=== PATIENT | female | born 1955 | race Caucasian/White ===

== ENCOUNTER 2016-12-14 13:34 | Observation (INO) | payer SELFPAY ==
[2016-12-14 13:54] VITALS: BMI 33.4
[2016-12-14] MEDS ORDERED: ASPIRIN PO ONE (13:55)
[2016-12-14] MEDS ORDERED: NITROSTAT SL PRN (13:57)
[2016-12-14] MEDS ORDERED: ASPIRIN 81 MG CHEWTAB ONE (14:05)
[2016-12-14 14:06] LABS: BASOPHILS # (AUTO) 0.1 X10^3/uL (0.0-0.1); BASOPHILS % (AUTO) 0.6 % (0.2-1.0); EOSINOPHILS # (AUTO) 0.2 x10^3/uL (0.0-0.2); EOSINOPHILS % (AUTO) 2.3 % (0.9-2.9); HEMATOCRIT 30.7 % (36.0-47.0); HEMOGLOBIN 10.6 g/dL (12.0-16.0); LYMPHOCYTES # (AUTO) 2.3 X10^3/uL (1.3-2.9); LYMPHOCYTES % (AUTO) 23.4 % (21.0-51.0); MEAN CORPUSCULAR HGB CONC 34.5 g/dL (33.0-35.0); MEAN CORPUSCULAR VOLUME 89.7 fL (80.0-100.0); MEAN PLATELET VOLUME 7.7 fL (7.4-11.0); MONOCYTES # (AUTO) 0.5 x10^3/uL (0.3-0.8); MONOCYTES % (AUTO) 5.4 % (0.0-13.0); NEUTROPHILS # (AUTO) 6.7 x10^3/uL (2.2-4.8); NEUTROPHILS % (AUTO) 68.3 % (42.0-75.0); PLATELET COUNT 370 X10^3/uL (150.0-450.0); RED BLOOD COUNT 3.42 X10^6/uL (3.5-5.4); RED CELL DISTRIBUTION WIDTH 14.3 % (11.6-16.5); WHITE BLOOD COUNT 9.7 X10^3/uL (3.6-10.0)
--- NOTE | 2016-12-14 14:11 | DR.GENAD ---
HPI - HPI Comment HPI Comment: SUDDEN ONSET OF PRECORDIAL CHEST PAIN THAT STARTED AT HOME ONE HOUR AGO. SHE WENT TO HER NEURO APPOINTMENT AND GOT WORSE IN THAT OFFICE. PATIENT TOOK 2 S/L NTG. NO RELIEF. HIST CAD AND PAIN SIMILAR TO HER HEART PAIN. SOB ASSOCIATED WITH LIKEWISE WEAKNESS AND FATIGUE. - Complaint/Symptoms Chief Complaint Doctors Comments: CHEST PAIN. - Nurses notes reviewed Nurses Notes Review: Yes - Source History Provided: Patient, Significant Other - Mode of Arrival Mode of Arrival: Wheelchair - Timing Came on: Suddenly - Duration Duration: Constant Duration: Hours - Severity Severity: Moderate PMH - PMH Past Medical History: CHF, CVA, Diabetes, Hypertension, Hypothyroidism, [place] Past Surgical History: Yes Surgical History: Appendectomy, CABG/Valve Surgery, Hysterectomy, Other - Family History Family Medical History: Diabetes Mellitus, Cancer, Heart Failure - Social History Do you use any recreational Drugs:: No ROS - Review of Systems Constitutional: Weakness, Fatigue. negative: Chills, Fever Eyes: No Symptoms Reported. negative: Eye Pain, Discharge ENTM: No Symptoms Reported. negative: Ear Pain, Nose Discharge, Nose Congestion , Throat Pain Respiratoy: Short of Breath. negative: Productive Cough, Non-Productive Cough, Wheezing Cardiovascular: Chest Pain, Edema Gastrointestinal/Abdominal: No Symptoms Reported. negative: Abdominal Pain, Diarrhea, Nausea, Vomiting Genitourinary: No Symptoms Reported. negative: Dysuria, Frequency, Hematuria Neurological: Pre-existing Deficit, Weakness, Other (SHORT TERM MEMOTY DEFICIT.) Musculoskeletal: No Symptoms Reported Integumentary: No Symptoms Reported Hematologic/Lymphatic: No Symptoms Reported Endocrine: No Symptoms Reported All Other Systems: Reviewed and Negative PE - Vital Signs Vitals: Temperature 98.9 F Pulse Rate [Left Brachial] 59 Pulse Rate 61 Respiratory Rate 16 Blood Pressure [Right Arm] 126/61 Blood Pressure [Left Arm] 128/72 Blood Pressure [Standing] 130/61 Blood Pressure [Sitting] 123/68 Blood Pressure [Lying] 142/79 Blood Pressure 161/74 O2 Sat by Pulse Oximetry 99 - General Limitations: No Limitations General Appearance: Alert - Head Head Exam: Normal Inspection - Eyes Eye exam: Normal Appearance - ENT ENT Exam: Normal External Ear Exam TM/Canal Exam: Bilateral Normal Nose Exam: Normal Nose Exam Mouth Exam: Normal Inspection Throat Exam: Normal Inspection - Neck Neck Exam: Trachea Midline - Chest Chest Inspection: Symmetric Chest Wall Rise - Respiratory Respiratory Exam: Normal Lung Sounds Bilat Respiratory Exam: Bilateral Clear to Auscultation - Cardiovascular Cardiovascular Exam: Regular Rate, Normal Rhythm, Normal Heart Sounds - Abdominal Exam Abdominal Exam: Normal Bowel Sounds, Soft. negative: Tenderness - Extremities Extremities Exam: Normal Inspection. negative: Edema - Back Back Exam: Normal Inspection - Neurologic Neurological Exam: Alert, Oriented X3 - Psychiatric Psychiatric Exam: Normal Affect, Normal Mood - Skin Skin Exam: Normal Color MDM - Additional Information Additional Information Obtained From: Family - Differential Diagnosis Differential Diagnosis: CHEST PAIN Course - Treatment Treatment: SEE ORDERS. - Education/Counseling Education/Counseling: Patient, Family, Education Educated On: Treatment, Diagnosis ROR - Labs Reviewed Laboratory Results Reviewed?: Yes Result Diagrams: 12/15/16 03:05 12/15/16 03:05 Laboratory: WBC 9.7 X10^3/uL (3.6-10.0) 12/14/16 13:45 RBC 3.42 X10^6/uL (3.5-5.4) L 12/14/16 13:45 Hgb 10.6 g/dL (12.0-16.0) L 12/14/16 13:45 Hct 30.7 % (36.0-47.0) L 12/14/16 13:45 MCV 89.7 fL (80.0-100.0) 12/14/16 13:45 MCH 31.0 pg (27.0-34.0) 12/14/16 13:45 MCHC 34.5 g/dL (33.0-35.0) 12/14/16 13:45 RDW 14.3 % (11.6-16.5) 12/14/16 13:45 Plt Count 370 X10^3/uL (150.0-450.0) 12/14/16 13:45 MPV 7.7 fL (7.4-11.0) 12/14/16 13:45 Neut % 68.3 % (42.0-75.0) 12/14/16 13:45 Lymph % 23.4 % (21.0-51.0) 12/14/16 13:45 [place] % 5.4 % (0.0-13.0) 12/14/16 13:45 Eos % 2.3 % (0.9-2.9) 12/14/16 13:45 Baso % 0.6 % (0.2-1.0) 12/14/16 13:45 Neut # 6.7 x10^3/uL (2.2-4.8) H 12/14/16 13:45 Lymph # 2.3 X10^3/uL (1.3-2.9) 12/14/16 13:45 [place] # 0.5 x10^3/uL (0.3-0.8) 12/14/16 13:45 Eos # 0.2 x10^3/uL (0.0-0.2) 12/14/16 13:45 Baso # 0.1 X10^3/uL (0.0-0.1) 12/14/16 13:45 Absolute Nucleated RBC 0.1 /100WBC 12/14/16 13:45 INR Target Range - 12/14/16 13:45 INR 1.26 (0.8-1.3) 12/14/16 13:45 PTT 28.6 SECONDS (22.9-36.5) 12/14/16 13:45 PTT Comment - 12/14/16 13:45 D-Dimer 410 ng/mL (0-400) H* 12/14/16 13:45 Sodium 139 mmol/L (136-145) 12/14/16 13:45 Corrected Sodium 140 mmol/L (136-145) 12/14/16 13:45 Potassium 4.0 mmol/L (3.5-5.1) 12/14/16 13:45 Chloride 102 mmol/L (98-107) 12/14/16 13:45 Carbon Dioxide 28.6 mmol/L (21-32) 12/14/16 13:45 BUN 17 mg/dL (7-18) 12/14/16 13:45 Creatinine 0.90 mg/dL (0.55-1.02) 12/14/16 13:45 Est GFR (MDRD) Af Amer > 60 (>60) 12/14/16 13:45 Est GFR (MDRD) Non-Af > 60 (>60) 12/14/16 13:45 Glucose 154 mg/dL (65-99) H 12/14/16 13:45 Calcium 9.9 mg/dL (8.5-10.1) 12/14/16 13:45 Corrected Calcium 10.6 mg/dL (8.5-10.1) H 12/14/16 13:45 Magnesium 1.5 mg/dL (1.7-2.9) L 12/14/16 13:45 Total Bilirubin 0.30 mg/dL (0.2-1.0) 12/14/16 13:45 AST 12 Units/L (15-37) L 12/14/16 13:45 ALT 17 Units/L (12-78) 12/14/16 13:45 Alkaline Phosphatase 137 Units/L (46-116) H 12/14/16 13:45 Creatine Kinase 72 Units/L (26-192) 12/14/16 13:45 CK-MB (CK-2) < 1.0 ng/mL (0-4.0) 12/14/16 13:45 CK/CKMB % Calc 1.4 % (<4) 12/14/16 13:45 Troponin I < 0.02 ng/mL (0-1.5) 12/14/16 13:45 Total Protein 7.2 g/dL (6.4-8.2) 12/14/16 13:45 Albumin 3.1 g/dL (3.4-5.0) L 12/14/16 13:45 Globulin 4.1 g/dL (2.5-4.5) 12/14/16 13:45 Albumin/Globulin Ratio 0.8 Ratio (1.1-2.1) L 12/14/16 13:45 Specimen Type Clean catch urine 12/14/16 14:05 Urine Color Pale yellow (YELLOW) 12/14/16 14:05 Urine Appearance Clear (CLEAR) 12/14/16 14:05 Urine pH 5.0 (5.0 - 8.0) 12/14/16 14:05 Ur Specific [place] 1.010 (1.000-1.030) 12/14/16 14:05 Urine Protein Negative (NEGATIVE) 12/14/16 14:05 Urine Glucose (UA) Negative (NEGATIVE) 12/14/16 14:05 Urine Ketones Negative (NEGATIVE) 12/14/16 14:05 Urine Occult Blood Negative (NEGATIVE) 12/14/16 14:05 Urine Nitrite Negative (NEGATIVE) 12/14/16 14:05 Urine Bilirubin Negative (NEGATIVE) 12/14/16 14:05 Urine Urobilinogen Normal (NORMAL) 12/14/16 14:05 Ur Leukocyte Esterase Negative (NEGATIVE) 12/14/16 14:05 Urine RBC None seen /HPF (NEGATIVE) 12/14/16 14:05 Urine WBC 2-3 /HPF (NEGATIVE) 12/14/16 14:05 Ur Squamous Epith Cells Few /HPF (NEGATIVE) 12/14/16 14:05 Urine Bacteria 1+ /HPF (NEGATIVE) 12/14/16 14:05 Ur Culture Indicated? No/not indicated 12/14/16 14:05 - XRAY XRAY Findings: REPORT DISCUSS WITH PATIENT AND HER FAMILY. - EKG Rhythm: NSR (EKG NOTED) - Diagnosis Discharge Problem: Chest pain Qualifiers: Chest pain type: precordial pain Qualified Code(s): R07.2 - Precordial pain - Discharge Plan Disposition: ADMITTED INPATIENT Condition: Stable - Follow ups/Referrals - Instructions
[2016-12-14 14:17] LABS: BILIRUBIN,URINE NEGATIVE (NEGATIVE); BLOOD/HEMOGLOBIN,URINE NEGATIVE (NEGATIVE); GLUCOSE, URINE NEGATIVE (NEGATIVE); KETONES,URINE NEGATIVE (NEGATIVE); LEUKOCYTE ESTERASE ,URINE NEGATIVE (NEGATIVE); NITRITES,URINE NEGATIVE (NEGATIVE); PROTEIN,URINE NEGATIVE (NEGATIVE); UROBILINOGEN,URINE NORMAL (NORMAL)
[2016-12-14 14:20] LABS: BLOOD UREA NITROGEN 17 mg/dL (7-18); CALCIUM 9.9 mg/dL (8.5-10.1); CARBON DIOXIDE 28.6 mmol/L (21-32); CHLORIDE 102 mmol/L (98-107); COR NA(FOR HYPERGLY) 140 mmol/L (136-145); SODIUM 139 mmol/L (136-145); TROPONIN I < 0.02 ng/mL (0-1.5); eGFR BLACK RACES > 60 (>60); eGFR NON BLACK RACES > 60 (>60)
[2016-12-14 14:24] LABS: APPEARANCE,URINE CLEAR (CLEAR); BACTERIA,URINE 1+ /HPF (NEGATIVE); COLOR,URINE PALE YELLOW (YELLOW); RBC,URINE NONE SEEN /HPF (NEGATIVE); SQUAMOUS EPITHELIAL CELL,UR FEW /HPF (NEGATIVE)
[2016-12-14 14:24] LABS: ALANINE AMINOTRANSFERASE 17 Units/L (12-78); ALBUMIN 3.1 g/dL (3.4-5.0); ALKALINE PHOSPHATASE 137 Units/L (46-116); ASPARTATE AMINO TRANSFERASE 12 Units/L (15-37); CKMB % 1.4 % (<4); COR CA(FOR HYPOALB) 10.6 mg/dL (8.5-10.1); CREATINE KINASE 72 Units/L (26-192); CREATINE KINASE MB < 1.0 ng/mL (0-4.0); MAGNESIUM 1.5 mg/dL (1.7-2.9); TOTAL PROTEIN 7.2 g/dL (6.4-8.2)
[2016-12-14] MEDS ORDERED: MORPHINE SULFATE INJ 4 MG IVP ONE ×2 (14:33→15:30)
[2016-12-14] MEDS ORDERED: MORPHINE SULFATE INJ 4 MG ONE ×2 (14:35→15:31)
[2016-12-14] MEDS ORDERED: MORPHINE SULFATE INJ 2 MG INJ IVP PRN (15:40)
[2016-12-14] MEDS ORDERED: ATIVAN TAB 1 MG PO PRN (15:40)
--- NOTE | 2016-12-14 16:11 | RAD ---
Examination: Portable AP chest History: Chest pain SOB Comparison reference: 03/27/2016 Findings: Continued normal heart size with sternal wires. There is mild pulmonary vascular congestion , at least some of which may be related to nonstandard technical factors. There is no evidence for co nsolidation or pleural fluid. Impression: Pulmonary vascular congestion; stable appearance of postsurgical findings. No evidence fo r pneumonia or pneumothorax. Reported By:
[2016-12-14] MEDS: PROTONIX INJ 40 MG VIAL IVP SCH (16:40)
[2016-12-14] MEDS ORDERED: COUMADIN TAB 5 MG PO SCH (21:00)
[2016-12-14] MEDS ORDERED: LIPITOR TAB 40 MG PO SCH (21:00)
[2016-12-14] MEDS: BUSPAR PO SCH (21:04)
[2016-12-14] MEDS: COREG TAB 6.25 MG PO SCH (21:05)
[2016-12-14] MEDS: KEPPRA TAB 500 MG PO SCH (21:06)
[2016-12-14] MEDS: GLUCOPHAGE XR PO SCH (21:07)
[2016-12-14 21:39] LABS: CKMB % 1.6 % (<4); CREATINE KINASE 63 Units/L (26-192); CREATINE KINASE MB < 1.0 ng/mL (0-4.0); TROPONIN I < 0.02 ng/mL (0-1.5)
[2016-12-15 03:23] LABS: BASOPHILS # (AUTO) 0.1 X10^3/uL (0.0-0.1); BASOPHILS % (AUTO) 1.1 % (0.2-1.0); EOSINOPHILS # (AUTO) 0.2 x10^3/uL (0.0-0.2); EOSINOPHILS % (AUTO) 2.3 % (0.9-2.9); HEMATOCRIT 30.1 % (36.0-47.0); HEMOGLOBIN 10.1 g/dL (12.0-16.0); LYMPHOCYTES # (AUTO) 2.6 X10^3/uL (1.3-2.9); LYMPHOCYTES % (AUTO) 24.7 % (21.0-51.0); MEAN CORPUSCULAR HEMOGLOBIN 30.8 pg (27.0-34.0); MEAN CORPUSCULAR HGB CONC 33.4 g/dL (33.0-35.0); MEAN CORPUSCULAR VOLUME 92.1 fL (80.0-100.0); MEAN PLATELET VOLUME 7.8 fL (7.4-11.0); MONOCYTES # (AUTO) 0.7 x10^3/uL (0.3-0.8); MONOCYTES % (AUTO) 6.4 % (0.0-13.0); NEUTROPHILS # (AUTO) 6.8 x10^3/uL (2.2-4.8); NEUTROPHILS % (AUTO) 65.5 % (42.0-75.0); PLATELET COUNT 327 X10^3/uL (150.0-450.0); RED BLOOD COUNT 3.27 X10^6/uL (3.5-5.4); RED CELL DISTRIBUTION WIDTH 14.5 % (11.6-16.5); WHITE BLOOD COUNT 10.3 X10^3/uL (3.6-10.0)
[2016-12-15 03:38] LABS: CKMB % 1.6 % (<4); CREATINE KINASE 63 Units/L (26-192); CREATINE KINASE MB < 1.0 ng/mL (0-4.0); TROPONIN I < 0.02 ng/mL (0-1.5)
[2016-12-15 03:49] LABS: ALANINE AMINOTRANSFERASE 17 Units/L (12-78); ALBUMIN 2.8 g/dL (3.4-5.0); ALKALINE PHOSPHATASE 122 Units/L (46-116); ASPARTATE AMINO TRANSFERASE 13 Units/L (15-37); BLOOD UREA NITROGEN 24 mg/dL (7-18); CALCIUM 9.6 mg/dL (8.5-10.1); CARBON DIOXIDE 28.1 mmol/L (21-32); CHLORIDE 105 mmol/L (98-107); CHOL/HDL RATIO 2.6 (0.0-5.0); CHOLESTEROL 170 mg/dL (0-200); COR CA(FOR HYPOALB) 10.6 mg/dL (8.5-10.1); COR NA(FOR HYPERGLY) 142 mmol/L (136-145); CREATININE 1.18 mg/dL (0.55-1.02); HDL CHOLESTEROL 66 mg/dL (40-60); MAGNESIUM 1.6 mg/dL (1.7-2.9); SODIUM 140 mmol/L (136-145); TOTAL PROTEIN 6.7 g/dL (6.4-8.2); TRIGLYCERIDES 221 mg/dL (0-150); eGFR BLACK RACES > 60 (>60); eGFR NON BLACK RACES 50 (>60)
[2016-12-15] MEDS: BUSPAR PO SCH (05:27)
[2016-12-15] MEDS: GLUCOPHAGE XR PO SCH (08:54)
[2016-12-15] MEDS: COREG TAB 6.25 MG PO SCH (08:54)
[2016-12-15] MEDS: KEPPRA TAB 500 MG PO SCH (08:55)
[2016-12-15] MEDS: PROTONIX INJ 40 MG VIAL IVP SCH (08:56)
[2016-12-15] MEDS ORDERED: ACTOS PO SCH (09:00)
[2016-12-15] MEDS ORDERED: K-DUR TAB 20 MEQ PO SCH (09:00)
[2016-12-15] MEDS ORDERED: GLUCOTROL XL PO SCH (09:00)
[2016-12-15] MEDS ORDERED: ZOLOFT PO SCH (09:00)
[2016-12-15] MEDS ORDERED: LASIX PO SCH (09:00)
[2016-12-15] MEDS ORDERED: SYNTHROID 25 mcg TAB PO SCH (09:00)
[2016-12-15] MEDS ORDERED: PEPCID TAB 20 MG PO SCH (09:00)
[2016-12-15] MEDS ORDERED: ASPIRIN EC 81 MG PO SCH (09:00)
[2016-12-15] MEDS ORDERED: COZAAR PO SCH (09:00)
[2016-12-15 14:08] VITALS: BP 158/76
== END 2016-12-15 12:10 | disposition home or self-care (01) ==
LOC: ER 13:36 → MED/SURG 15:32
PROVIDERS: ADMIT Obstetrics & Gynecology Obstetrics; ATTEND Obstetrics & Gynecology Obstetrics
DX: R07.2 Precordial pain (principal); I25.10 Atherosclerotic heart disease of native coronary artery without angina pectoris; R06.02 Shortness of breath; E11.65 Type 2 diabetes mellitus with hyperglycemia; I10 Essential (primary) hypertension; E03.8 Other specified hypothyroidism; R94.31 Abnormal electrocardiogram [ECG] [EKG]; Z79.01 Long term (current) use of anticoagulants
CPT/HCPCS: 36415; 71010; 80053; 80061; 81001; 82550; 82553; 83735; 84484; 85025; 85378; 85610; 85730; 93005; 93010; 94760; 96365; 96374; 96375; 99284; A4216; A4222; C9113; G0378; J2270

== ENCOUNTER 2017-05-06 10:05 | Observation (INO) | payer BC ==
--- NOTE | 2017-05-06 10:24 | DR.EXTPAIN ---
HPI - Time seen Time seen: 10:25 - PCP Primary Care Physician: HARLEY - HPI Comment HPI Comment: PATIENT IS WEAK ABD HAVE GENERALIZE PAIN. - Complaint/Symptoms Chief Complaint Doctor Comments: PATIENT FOUND ON FLOOR IN HER ROOM. SHE FELL LAST NIGHT. NECK AND BACK PAIN. Chief Complaint:: EMS RESPONDED TO BACK PAIN, SEIZURE ACTIVITY, AND FELL LAST NIGHT. EMS DID NOT SEE SEIZURE ACTIVITY AND FAMILY HAD ASSISTED PT UP BEFORE ARRIVAL. PT ON BACK BOARD. PT COMPLAINTS OF LEFT SHOULDER PAIN WHEN PLACING BLOOD PRESSUE CUFF ON. - Nurses notes reviewed Nurses Notes Review: Yes - Source History Provided: Patient, EMS - Mode of arrival Mode of Arrival: Stretcher - Timing Onset of Chief Complaint: 05/05/17 - Context History of: Arthritis - Associated signs and symptoms Associated Signs and Symptoms: Abrasion, Weakness, Pain, Swelling, Bruising, Headache, Nausea, Shortness of Breath PMH - PMH Past Medical History: Yes Past Medical History: CHF, CVA, Diabetes, Hypertension, Hypothyroidism, [place] Past Surgical History: Yes Surgical History: Appendectomy, CABG/Valve Surgery, Hysterectomy, Other - Family History History of Family Medical Conditions: Yes Family Medical History: Diabetes Mellitus, Cancer, Heart Failure - Social History Does any household member use tobacco: No Alcohol Use: None Do you use any recreational Drugs:: No Lives With: Spouse Lives Where: Home - infectious screening In the last 2 months have you had wt loss of >10#?: NO Have you had fever, night sweats or hemotysis?: No Have you traveled outside the country in the last 6 months?: No Isolation: Standard ROS - Review of Systems Constitutional: Weakness, Fatigue. negative: Chills, Fever Eyes: negative: Eye Pain, Discharge ENTM: negative: Ear Pain, Nose Discharge, Nose Congestion, Throat Pain Respiratoy: Short of Breath. negative: Productive Cough, Non-Productive Cough, Wheezing, Hemoptysis Cardiovascular: Edema. negative: Chest Pain Gastrointestinal/Abdominal: negative: Abdominal Pain, Constipation, Diarrhea, Nausea, Vomiting Genitourinary: No Symptoms Reported. negative: Dysuria, Frequency, Hematuria Neurological: Weakness, Dizziness, Problems Walking Musculoskeletal: No Symptoms Reported, Back Pain, Joint Pain, Joint Swelling, Muscle Pain, Neck Pain, Neck, Back Integumentary: Change in Color Hematologic/Lymphatic: No Symptoms Reported Endocrine: No Symptoms Reported All Other Systems: Reviewed and Negative PE - Vital Signs Vitals: Temperature 97.3 F Pulse Rate [Left Brachial] 85 Pulse Rate 78 Respiratory Rate 20 Blood Pressure [Right Arm] 112/60 Blood Pressure [Left Arm] 188/84 Blood Pressure [Standing] 130/61 Blood Pressure [Sitting] 123/68 Blood Pressure [Lying] 142/79 Blood Pressure 183/94 O2 Sat by Pulse Oximetry 95 - General Limitations: No Limitations General Appearance: Alert - Head Head Exam: Normal Inspection - Eyes Eye exam: Normal Appearance - ENT ENT Exam: Normal External Ear Exam - Neck Neck Exam: Trachea Midline - Chest Chest Inspection: Symmetric Chest Wall Rise - Respiratory Respiratory Exam: Normal Lung Sounds Bilat Respiratory Exam: Bilateral Clear to Auscultation - Cardiovascular Cardiovascular Exam: Regular Rate, Normal Rhythm, Normal Heart Sounds - Abdominal Exam Abdominal Exam: Normal Bowel Sounds. negative: Tenderness - Extremities Extremities Exam: Full ROM, Edema - Back Back Exam: Tenderness, Muscle Spasm, Paraspinal Tenderness, Vertebral Tenderness - Neurological Neurological Exam: Alert, Oriented X3 - Psychiatric Psychiatric Exam: Anxious - Skin Skin Exam: Erythema MDM - Differential Diagnosis Differential Diagnosis: Contusion, Fracture, Hematoma, Neurovascular Injury, Sprain Course - Treatment Treatment: SEE ORDERS. IV PAIN MED IN ED. PATIENT STILL IN PAIN. - Consultation Consultation Comments: DISCUSS PATIENT WITH DR. SOUZA. HE WILL ADMIT PATIENT. - Education/Counseling Education/Counseling: Patient, Education Educated On: Treatment, Diagnosis, Needs for Follow Up ROR - Labs Reviewed Laboratory Results Reviewed?: Yes Result Diagrams: 05/07/17 05:00 05/07/17 05:00 Laboratory: WBC 12.8 X10^3/uL (3.6-10.0) H 05/06/17 10:50 RBC 4.30 X10^6/uL (3.5-5.4) 05/06/17 10:50 Hgb 12.7 g/dL (12.0-16.0) 05/06/17 10:50 Hct 38.3 % (36.0-47.0) 05/06/17 10:50 MCV 89.2 fL (80.0-100.0) 05/06/17 10:50 MCH 29.6 pg (27.0-34.0) 05/06/17 10:50 MCHC 33.1 g/dL (33.0-35.0) 05/06/17 10:50 RDW 14.6 % (11.6-16.5) 05/06/17 10:50 Plt Count 370 X10^3/uL (150.0-450.0) 05/06/17 10:50 MPV 7.8 fL (7.4-11.0) 05/06/17 10:50 Neut % (Auto) 88.6 % (42.0-75.0) H 05/06/17 10:50 Lymph % (Auto) 8.6 % (21.0-51.0) L 05/06/17 10:50 [place] % (Auto) 1.8 % (0.0-13.0) 05/06/17 10:50 Eos % (Auto) 0.6 % (0.9-2.9) L 05/06/17 10:50 Baso % (Auto) 0.4 % (0.2-1.0) 05/06/17 10:50 Neut # (Auto) 11.3 x10^3/uL (2.2-4.8) H 05/06/17 10:50 Lymph # (Auto) 1.1 X10^3/uL (1.3-2.9) L 05/06/17 10:50 [place] # (Auto) 0.2 x10^3/uL (0.3-0.8) L 05/06/17 10:50 Eos # (Auto) 0.1 x10^3/uL (0.0-0.2) 05/06/17 10:50 Baso # (Auto) 0.1 X10^3/uL (0.0-0.1) 05/06/17 10:50 Absolute Nucleated RBC 0.1 /100WBC 05/06/17 10:50 INR Target Range - 05/06/17 13:24 INR 1.28 (0.8-1.3) 05/06/17 13:24 APTT 24.1 SECONDS (22.9-36.5) 05/06/17 13:24 PTT Comment - 05/06/17 13:24 Sodium 135 mmol/L (136-145) L 05/06/17 10:50 Corrected Sodium 142 mmol/L (136-145) 05/06/17 10:50 Potassium 5.2 mmol/L (3.5-5.1) H 05/06/17 10:50 Chloride 99 mmol/L (98-107) 05/06/17 10:50 Carbon Dioxide 24.0 mmol/L (21-32) 05/06/17 10:50 BUN 17 mg/dL (7-18) 05/06/17 10:50 Creatinine 1.14 mg/dL (0.55-1.02) H 05/06/17 10:50 Est GFR (MDRD) Af Amer > 60 (>60) 05/06/17 10:50 Est GFR (MDRD) Non-Af 52 (>60) L 05/06/17 10:50 Glucose 409 mg/dL (65-99) H 05/06/17 10:50 POC Glucose (mg/dL) 421 mg/dL (65-99) H* 05/06/17 10:25 Calcium 10.4 mg/dL (8.5-10.1) H 05/06/17 10:50 Corrected Calcium TNP 05/06/17 10:50 Total Bilirubin 0.30 mg/dL (0.2-1.0) 05/06/17 10:50 AST 13 Units/L (15-37) L 05/06/17 10:50 ALT 21 Units/L (12-78) 05/06/17 10:50 Alkaline Phosphatase 163 Units/L (46-116) H 05/06/17 10:50 Creatine Kinase 162 Units/L (26-192) 05/06/17 17:58 CK-MB (CK-2) 1.2 ng/mL (0-4.0) 05/06/17 17:58 CK/CKMB % Calc 0.7 % (<4) 05/06/17 17:58 Troponin I 0.03 ng/mL (0-1.5) 05/06/17 17:58 Total Protein 7.4 g/dL (6.4-8.2) 05/06/17 10:50 Albumin 3.6 g/dL (3.4-5.0) 05/06/17 10:50 Globulin 3.8 g/dL (2.5-4.5) 05/06/17 10:50 Albumin/Globulin Ratio 0.9 Ratio (1.1-2.1) L 05/06/17 10:50 Specimen Type Random urine 05/06/17 12:27 Urine Color Yellow (YELLOW) 05/06/17 12:27 Urine Appearance Slightly hazy (CLEAR) 05/06/17 12:27 Urine pH 6.0 (5.0 - 8.0) 05/06/17 12:27 Ur Specific [place] 1.010 (1.000-1.030) 05/06/17 12:27 Urine Protein 3+ (NEGATIVE) 05/06/17 12:27 Urine Glucose (UA) 4+ (NEGATIVE) 05/06/17 12:27 Urine Ketones Negative (NEGATIVE) 05/06/17 12:27 Urine Occult Blood 3+ (NEGATIVE) 05/06/17 12:27 Urine Nitrite Negative (NEGATIVE) 05/06/17 12:27 Urine Bilirubin Negative (NEGATIVE) 05/06/17 12:27 Urine Urobilinogen Normal (NORMAL) 05/06/17 12:27 Ur Leukocyte Esterase Negative (NEGATIVE) 05/06/17 12:27 Urine RBC 0-2 /HPF (NONE SEEN) 05/06/17 12:27 Urine WBC 3-5 /HPF (NONE SEEN) 05/06/17 12:27 Ur Squamous Epith Cells Moderate /HPF (NEGATIVE) 05/06/17 12:27 Urine Bacteria Trace /HPF (NEGATIVE) 05/06/17 12:27 Ur Culture Indicated? No/not indicated 05/06/17 12:27 [place]et[place], Semi-Quant Negative (NEGATIVE) 05/06/17 10:50 - XRAY XRAY Findings: REPORT DISCUSS WITH PATIENT. - EKG Rhythm: NSR (EKG NOTED) - Diagnosis Discharge Problem: Intractable pain, Generalized weakness, Multiple contusions Back pain Qualifiers: Back pain location: low back pain Chronicity: acute Back pain laterality: bilateral Sciatica presence: unspecified whether sciatica present Qualified Code (s): M54.5 - Low back pain Strain of thoracic region Qualifiers: Encounter type: initial encounter Qualified Code(s): S29.019A - Strain of muscle and tendon of unspecified wall of thorax, initial encounter - Discharge Plan Disposition: 01 HOME, SELF-CARE Condition: Stable - Follow ups/Referrals - Instructions
[2017-05-06] MEDS ORDERED: ZOFRAN INJ 4 MG VIAL IVP ONE (10:36)
[2017-05-06] MEDS ORDERED: MORPHINE SULFATE INJ 2 MG INJ IVP ONE (10:41)
[2017-05-06] MEDS ORDERED: ZOFRAN INJ 4 MG VIAL ONE (10:44)
[2017-05-06] MEDS ORDERED: MORPHINE SULFATE INJ 2 MG INJ ONE (10:44)
[2017-05-06] MEDS ORDERED: NS 1000 ML 1,000 ML ONE (10:53)
[2017-05-06] MEDS ORDERED: NS 1000 ML 1,000 ML IV ONE (10:57)
[2017-05-06 10:59] LABS: BASOPHILS # (AUTO) 0.1 X10^3/uL (0.0-0.1); BASOPHILS % (AUTO) 0.4 % (0.2-1.0); EOSINOPHILS # (AUTO) 0.1 x10^3/uL (0.0-0.2); EOSINOPHILS % (AUTO) 0.6 % (0.9-2.9); HEMATOCRIT 38.3 % (36.0-47.0); HEMOGLOBIN 12.7 g/dL (12.0-16.0); LYMPHOCYTES # (AUTO) 1.1 X10^3/uL (1.3-2.9); LYMPHOCYTES % (AUTO) 8.6 % (21.0-51.0); MEAN CORPUSCULAR HEMOGLOBIN 29.6 pg (27.0-34.0); MEAN CORPUSCULAR HGB CONC 33.1 g/dL (33.0-35.0); MEAN CORPUSCULAR VOLUME 89.2 fL (80.0-100.0); MEAN PLATELET VOLUME 7.8 fL (7.4-11.0); MONOCYTES # (AUTO) 0.2 x10^3/uL (0.3-0.8); MONOCYTES % (AUTO) 1.8 % (0.0-13.0); NEUTROPHILS # (AUTO) 11.3 x10^3/uL (2.2-4.8); NEUTROPHILS % (AUTO) 88.6 % (42.0-75.0); PLATELET COUNT 370 X10^3/uL (150.0-450.0); RED CELL DISTRIBUTION WIDTH 14.6 % (11.6-16.5); WHITE BLOOD COUNT 12.8 X10^3/uL (3.6-10.0)
[2017-05-06 11:13] LABS: BLOOD UREA NITROGEN 17 mg/dL (7-18); CALCIUM 10.4 mg/dL (8.5-10.1); CHLORIDE 99 mmol/L (98-107); COR NA(FOR HYPERGLY) 142 mmol/L (136-145); CREATININE 1.14 mg/dL (0.55-1.02); SODIUM 135 mmol/L (136-145); TROPONIN I 0.02 ng/mL (0-1.5); eGFR BLACK RACES > 60 (>60); eGFR NON BLACK RACES 52 (>60)
[2017-05-06 11:16] LABS: SERUM ACETONE NEGATIVE (NEGATIVE)
[2017-05-06 11:28] LABS: ALANINE AMINOTRANSFERASE 21 Units/L (12-78); ALBUMIN 3.6 g/dL (3.4-5.0); ALKALINE PHOSPHATASE 163 Units/L (46-116); ASPARTATE AMINO TRANSFERASE 13 Units/L (15-37); CKMB % 1.1 % (<4); CREATINE KINASE 114 Units/L (26-192); CREATINE KINASE MB 1.3 ng/mL (0-4.0); TOTAL PROTEIN 7.4 g/dL (6.4-8.2)
--- NOTE | 2017-05-06 12:02 | CT ---
History: Back pain and seizure activity and fall last night Study: CT thoracic spine without contrast. Sagittal and coronal reformations were provided. Findings: There is normal alignment without fracture or compression. There are moderate degenerative osteophytes in the lower half of the thoracic spine without significant disc space narrowing. The spi nous processes are intact. The partially visualized posterior ribs are intact. The partially visualiz ed lungs are grossly clear. Impression: Degenerative disc disease, no acute disease. Reported By:
--- NOTE | 2017-05-06 12:02 | CT ---
CT HEAD WITHOUT CONTRAST CLINICAL HISTORY: 62-year-old female with seizure like activity status post fall last night. COMPARISON: MR brain 03/30/2016, CT head 03/26/2016. TECHNIQUE: Multiple, non-contrasted axial CT images were obtained from the skull base to the cranial vertex. Coronal and sagittal reformats were performed. FINDINGS: There are no abnormal intra- or extra-axial fluid collections, midline shift, or mass effec t. Cao-white differentiation is normal. Partially empty sella. Global cortical involutional changes are present that are advanced for the patient's stated age. The ventricular system is mildly enlarged but commensurate with the degree of sulcal prominence. Chronic ischemic insult with associated encephalomalacia of the bilateral occipital lobes and posteri or aspect of the left temporal lobe. Periventricular and supraventricular white matter hypodensity is present that is nonspecific in appea dayne, but most likely to represent microvascular ischemic changes. Atherosclerotic vascular calcific ation is present within the carotid siphons and distal vertebral arteries. The paranasal sinuses, mastoid air cells, and tympanic spaces are clear. IMPRESSION: 1. No definite evidence of an acute intracranial process. If clinical concern persists for acute stro ke, consider MRI/MRA brain. 2. 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 3. Moderate microvascular white matter ischemic changes, with associated volume loss. Reported By:
--- NOTE | 2017-05-06 12:04 | CT ---
History: Back pain and seizure activity and fall last night Study: CT lumbar spine without contrast. Sagittal and coronal reformations were provided. Comparison: None Findings: There is normal alignment without fracture or compression. There is moderate L4-5 disc spac e narrowing. The spinous processes are intact as well as the transverse processes. There are moderate degenerative changes of the facet joints diffusely. There are most severe on the left and especially at L4-5 and L5-S1. The sacroiliac joints are unremarkable. There are prominent degenerative osteophy milind laterally at L1-2 and L2-3 Impression: Facet joint osteoarthritis and degenerative disc disease as described. Reported By:
--- NOTE | 2017-05-06 12:10 | CT ---
History: Neck pain and seizure activity and fall last night Study: CT cervical spine without contrast. Sagittal and coronal reformations were provided. Comparison: None Findings: There is normal alignment without fracture demonstrated. There is moderate to severe C5-6 a nd C6-7 disc space narrowing with osteophyte formation and uncovertebral joint spurring primarily at C5-6. There is severe mid cervical facet joint osteophytes on the left primarily at C3-4 and C4-5. Th e spinous processes are intact. The soft tissues appear unremarkable. Impression: Moderate to severe lower cervical degenerative disc disease and severe left C3-4 and C4-5 facet joint osteoarthritis Reported By:
--- NOTE | 2017-05-06 12:18 | RAD ---
HISTORY: 62-year-old female status post fall. Study: Frontal view of the chest. Comparison: Chest radiographs 12/14/2016 Findings: Surgical devices are stable The trachea is midline. The cardiac silhouette is stably enlarged with low lung volumes and chronic prominence of the interstitium/perihilar lung markings. The lungs are clear without focal consolidat ion, effusion or pneumothorax. Soft tissues are unremarkable. Osseous structures are unremarkable. IMPRESSION: 1. No acute cardiopulmonary disease. Reported By:
[2017-05-06 12:39] LABS: BILIRUBIN,URINE NEGATIVE (NEGATIVE); BLOOD/HEMOGLOBIN,URINE 3+ (NEGATIVE); GLUCOSE, URINE 4+ (NEGATIVE); KETONES,URINE NEGATIVE (NEGATIVE); LEUKOCYTE ESTERASE ,URINE NEGATIVE (NEGATIVE); NITRITES,URINE NEGATIVE (NEGATIVE); PROTEIN,URINE 3+ (NEGATIVE); UROBILINOGEN,URINE NORMAL (NORMAL)
[2017-05-06 12:47] LABS: COLOR,URINE YELLOW (YELLOW)
[2017-05-06 12:56] LABS: APPEARANCE,URINE SLIGHTLY HAZY (CLEAR)
[2017-05-06 12:58] LABS: BACTERIA,URINE TRACE /HPF (NEGATIVE); RBC,URINE 0-2 /HPF (NONE SEEN); SQUAMOUS EPITHELIAL CELL,UR MODERATE /HPF (NEGATIVE)
[2017-05-06] MEDS: NS 1000 ML 1,000 ML IV SCH (17:17)
[2017-05-06] MEDS ORDERED: MORPHINE SULFATE INJ 2 MG INJ IVP PRN (17:28)
[2017-05-06] MEDS ORDERED: ZOFRAN INJ 4 MG VIAL IVP PRN (17:28)
[2017-05-06 17:51] VITALS: BMI 37.4
[2017-05-06 18:41] LABS: CKMB % 0.7 % (<4); CREATINE KINASE MB 1.2 ng/mL (0-4.0); TROPONIN I 0.03 ng/mL (0-1.5)
[2017-05-06] MEDS: GLUCOPHAGE XR PO SCH (20:46)
[2017-05-06] MEDS: COREG TAB 6.25 MG PO SCH (20:48)
[2017-05-06] MEDS ORDERED: KEPPRA TAB 500 MG PO SCH (21:00)
[2017-05-06] MEDS ORDERED: DILANTIN CAP 100 MG EXT REL PO SCH (21:00)
[2017-05-06] MEDS ORDERED: ZOLOFT PO SCH (21:00)
[2017-05-06] MEDS ORDERED: LIPITOR TAB 40 MG PO SCH (21:00)
[2017-05-06] MEDS ORDERED: ACTOS PO SCH (21:00)
[2017-05-06] MEDS ORDERED: COUMADIN TAB 5 MG PO SCH (21:00)
[2017-05-06] MEDS ORDERED: LEVETIRACETAM 750 MG PO SCH (21:00)
[2017-05-07 01:52] LABS: CKMB % 0.6 % (<4); CREATINE KINASE MB 1.2 ng/mL (0-4.0); TROPONIN I 0.04 ng/mL (0-1.5)
[2017-05-07 05:28] LABS: BASOPHILS # (AUTO) 0.1 X10^3/uL (0.0-0.1); BASOPHILS % (AUTO) 1.3 % (0.2-1.0); EOSINOPHILS # (AUTO) 0.1 x10^3/uL (0.0-0.2); EOSINOPHILS % (AUTO) 0.8 % (0.9-2.9); HEMATOCRIT 33.1 % (36.0-47.0); HEMOGLOBIN 11.1 g/dL (12.0-16.0); LYMPHOCYTES # (AUTO) 2.4 X10^3/uL (1.3-2.9); LYMPHOCYTES % (AUTO) 20.9 % (21.0-51.0); MEAN CORPUSCULAR HEMOGLOBIN 29.7 pg (27.0-34.0); MEAN CORPUSCULAR HGB CONC 33.6 g/dL (33.0-35.0); MEAN CORPUSCULAR VOLUME 88.4 fL (80.0-100.0); MEAN PLATELET VOLUME 7.9 fL (7.4-11.0); MONOCYTES # (AUTO) 0.6 x10^3/uL (0.3-0.8); MONOCYTES % (AUTO) 5.3 % (0.0-13.0); NEUTROPHILS # (AUTO) 8.2 x10^3/uL (2.2-4.8); NEUTROPHILS % (AUTO) 71.7 % (42.0-75.0); PLATELET COUNT 364 X10^3/uL (150.0-450.0); RED BLOOD COUNT 3.75 X10^6/uL (3.5-5.4); RED CELL DISTRIBUTION WIDTH 14.2 % (11.6-16.5); WHITE BLOOD COUNT 11.5 X10^3/uL (3.6-10.0)
[2017-05-07 05:40] LABS: ALANINE AMINOTRANSFERASE 18 Units/L (12-78); ALBUMIN 2.8 g/dL (3.4-5.0); ALKALINE PHOSPHATASE 121 Units/L (46-116); ASPARTATE AMINO TRANSFERASE 11 Units/L (15-37); BLOOD UREA NITROGEN 17 mg/dL (7-18); CALCIUM 9.2 mg/dL (8.5-10.1); CARBON DIOXIDE 26.3 mmol/L (21-32); CHLORIDE 104 mmol/L (98-107); COR CA(FOR HYPOALB) 10.2 mg/dL (8.5-10.1); COR NA(FOR HYPERGLY) 140 mmol/L (136-145); CREATININE 0.97 mg/dL (0.55-1.02); SODIUM 137 mmol/L (136-145); TOTAL PROTEIN 6.6 g/dL (6.4-8.2); eGFR BLACK RACES > 60 (>60); eGFR NON BLACK RACES > 60 (>60)
[2017-05-07] MEDS: NS 1000 ML 1,000 ML IV SCH (05:52)
[2017-05-07] MEDS ORDERED: PATIENT'S HOME MEDICATION (Buspirone Hcl [Buspirone Hcl] 1 TAB) PO SCH (09:00)
[2017-05-07] MEDS ORDERED: K-DUR TAB 20 MEQ PO SCH (09:00)
[2017-05-07] MEDS ORDERED: ASPIRIN 81 MG CHEWTAB PO SCH (09:00)
[2017-05-07] MEDS ORDERED: PEPCID TAB 20 MG PO SCH (09:00)
[2017-05-07] MEDS ORDERED: PATIENT'S HOME MEDICATION (Aspirin [Aspirin] 1 TAB) PO SCH (09:00)
[2017-05-07] MEDS ORDERED: PATIENT'S HOME MEDICATION (Famotidine [Famotidine] 40 MG) PO SCH (09:00)
[2017-05-07] MEDS ORDERED: SYNTHROID 25 mcg TAB PO SCH (09:00)
[2017-05-07] MEDS ORDERED: LASIX PO SCH (09:00)
[2017-05-07] MEDS ORDERED: BUSPAR PO SCH (09:00)
[2017-05-07] MEDS ORDERED: COZAAR PO SCH (09:00)
[2017-05-07] MEDS: GLUCOPHAGE XR PO SCH (09:12)
[2017-05-07] MEDS: COREG TAB 6.25 MG PO SCH (09:13)
[2017-05-07 18:21] VITALS: BP 145/72
== END 2017-05-07 13:30 | disposition home or self-care (01) ==
LOC: ER 10:07 → MED/SURG 15:55
PROVIDERS: ADMIT Internal Medicine; ATTEND Obstetrics & Gynecology Obstetrics
DX: R40.4 Transient alteration of awareness (principal); M54.5 Low back pain; G40.89 Other seizures; R53.1 Weakness; S29.019A Strain of muscle and tendon of unspecified wall of thorax, initial encounter; W18.39XA Other fall on same level, initial encounter; T07.XXXA Unspecified multiple injuries, initial encounter; D72.828 Other elevated white blood cell count; M25.512 Pain in left shoulder; Z79.1 Long term (current) use of non-steroidal anti-inflammatories (NSAID); M54.2 Cervicalgia; R94.31 Abnormal electrocardiogram [ECG] [EKG]; E11.65 Type 2 diabetes mellitus with hyperglycemia; I25.10 Atherosclerotic heart disease of native coronary artery without angina pectoris; H54.8 Legal blindness, as defined in USA
CPT/HCPCS: 36415; 70450; 71045; 72125; 72128; 72131; 80053; 80185; 81001; 82009; 82550; 82553; 83036; 84484; 85025; 85610; 85730; 93005; 93010; 94760; 96365; 96374; 96375; 99239; 99284; G0378; J2270; J2405

== ENCOUNTER 2017-10-18 15:50 | Observation (INO) ==
--- NOTE | 2017-10-18 16:07 | DR.CP ---
HPI Time Seen Time Seen by Provider: 10/18/17 16:00 PCP Primary Care Physician: bassem HPI Comment HPI Comment: PATIENT SAID PAIN DID NOT RESPOND TO NITROGLYCERIN S/L TIMES 2. TOOK ASA BEFORE COMING. PATIENT ALSO TAKES COUMADIN. Complaint Chief Complaint Doctor Comments: INTERMITTENT PRECORDIAL CHEST PAIN TIMES ONE HOUR. Chief Complaint:: "chest pain started about 30min ago" Reviewed Nurses Notes Review: Yes Source History Provided: Patient Mode of Arrival Mode of Arrival: Ambulatory Timing Onset of Chief Complaint: 10/18/17 Came on: Suddenly Pain: Present Now Duration Duration: Intermittent Duration: Hours Location Location of Chest Pain: Left and Chest Chest Pain Radiation Location: None Context Onset: At rest Cardiac Risk Factors: Family History and HTN PE Risk Factors: None History of: Similar pain in the past, [place], Angina and Aspirin in last 24 hours Prehospital Care: [facility] and ASA Quality Quality: Pressure like and Heavy Severity Severity: Moderate Modifying Factors Worsens: Nothing Impoves: Nothing Associated Signs and Symptoms Associated Signs and Symptoms: None and Shortness of Breath PMH PMH Past Medical History: Yes Past Medical History: CHF, CVA, Diabetes, Hypertension, Hypothyroidism and [place] Past Surgical History: Yes Surgical History: Appendectomy, CABG/Valve Surgery, Hysterectomy and Other Family History History of Family Medical Conditions: Yes Family Medical History: Diabetes Mellitus, Cancer and Heart Failure Social History Does patient currently use any type of tobacco product: No Have you used tobacco products in the last 12 months: No Type of Tobacco Use: None Does any household member use tobacco: No Alcohol Use: None Do you use any recreational Drugs:: No Lives With: Spouse Lives Where: Home infectious screening In the last 2 months have you had wt loss of >10#?: NO Have you had fever, night sweats or hemotysis?: No Have you traveled outside the country in the last 6 months?: No Isolation: Standard ROS Review of Systems Constitutional: Weakness and Fatigue Eyes: No Symptoms Reported ENTM: No Symptoms Reported Respiratoy: Short of Breath Cardiovascular: Chest Pain Gastrointestinal/Abdominal: No Symptoms Reported Genitourinary: No Symptoms Reported Neurological: Pre-existing Deficit and Weakness Musculoskeletal: No Symptoms Reported Integumentary: No Symptoms Reported Hematologic/Lymphatic: No Symptoms Reported Endocrine: No Symptoms Reported Psychiatric: No Symptoms Reported All Other Systems: Reviewed and Negative PE Vitals Vitals: Temperature 98 F Pulse Rate [Right Brachial] 78 Pulse Rate 88 Respiratory Rate 18 Blood Pressure [Right Arm] 192/100 Blood Pressure [Left Arm] 145/72 Blood Pressure [Standing] 130/61 Blood Pressure [Sitting] 123/68 Blood Pressure [Lying] 142/79 Blood Pressure 177/87 O2 Sat by Pulse Oximetry 98 General Limitations: No Limitations General Appearance: Alert and In No Apparent Distress Head Head Exam: Normal Inspection and Atraumatic Eyes Eye exam: Normal Appearance, PERRL and EOMI; negative Scleral Icterus and Conjunctival Injection ENT ENT Exam: Normal Exam, Normal Oropharynx, Normal External Ear Exam and TM's Normal Bilaterally Chest Chest Inspection: Normal Inspection and Symmetric Chest Wall Rise Respiratory Respiratory Exam: Normal Lung Sounds Bilat Respiratory Exam: Bilateral: Rhonchi and Lower: Rhonchi Cardiovascular Cardiovascular Exam: Regular Rate and Normal Rhythm Pulse: Normal, Radial and Femoral Edema: Normal Abdominal Exam Abdominal Exam: Normal Inspection, Normal Bowel Sounds and Soft; negative Tenderness Extremities Extremities Exam: Normal Inspection Back Back Exam: Normal Inspection Neurologic Neurological Exam: Alert, Oriented X3 and Motor Sensory Deficit Psychiatric Psychiatric Exam: Normal Affect Skin Skin Exam: Intact MDM Additional Information Additional Information Obtained From: Family Differential Diagnosis Differential Diagnosis: Angina, Myocardial Infarction, Pericarditis, Pneumonia, Pneumothorax and Pulmonary Embolus COURSE Treatment Treatment: SEE ORDERS. Consultation Consultation Comments: DISCUSS PATIENT WITH DR. SOUZA. HE WILL ADMIT PATIENT. Education/Counseling Education/Counseling: Patient, Family and Education Educated On: Diagnosis ROR Labs Reviewed Laboratory Results Reviewed?: Yes Result Diagrams: 10/18/17 16:10 10/18/17 16:10 Laboratory: WBC 9.7 X10^3/uL (3.6-10.0) 10/18/17 16:10 RBC 3.86 X10^6/uL (3.5-5.4) 10/18/17 16:10 Hgb 12.6 g/dL (12.0-16.0) 10/18/17 16:10 Hct 36.5 % (36.0-47.0) 10/18/17 16:10 MCV 94.8 fL (80.0-100.0) 10/18/17 16:10 MCH 32.8 pg (27.0-34.0) 10/18/17 16:10 MCHC 34.6 g/dL (33.0-35.0) 10/18/17 16:10 RDW 13.9 % (11.6-16.5) 10/18/17 16:10 Plt Count 387 X10^3/uL (150.0-450.0) 10/18/17 16:10 MPV 8.3 fL (7.4-11.0) 10/18/17 16:10 Neut % (Auto) 67.1 % (42.0-75.0) 10/18/17 16:10 Lymph % (Auto) 25.5 % (21.0-51.0) 10/18/17 16:10 Kendall % (Auto) 4.5 % (0.0-13.0) 10/18/17 16:10 Eos % (Auto) 1.8 % (0.9-2.9) 10/18/17 16:10 Baso % (Auto) 1.1 % (0.2-1.0) H 10/18/17 16:10 Neut # (Auto) 6.5 x10^3/uL (2.2-4.8) H 10/18/17 16:10 Lymph # (Auto) 2.5 X10^3/uL (1.3-2.9) 10/18/17 16:10 Kendall # (Auto) 0.4 x10^3/uL (0.3-0.8) 10/18/17 16:10 Eos # (Auto) 0.2 x10^3/uL (0.0-0.2) 10/18/17 16:10 Baso # (Auto) 0.1 X10^3/uL (0.0-0.1) 10/18/17 16:10 Absolute Nucleated RBC 0.0 /100WBC 10/18/17 16:10 INR Target Range - 10/18/17 16:10 INR 1.17 (0.8-1.3) 10/18/17 16:10 APTT 25.6 SECONDS (22.9-36.5) 10/18/17 16:10 PTT Comment - 10/18/17 16:10 D-Dimer 654 ng/mL (0-400) H* 10/18/17 16:10 Sodium 131 mmol/L (136-145) L 10/18/17 16:10 Corrected Sodium 140 mmol/L (136-145) 10/18/17 16:10 Potassium 4.4 mmol/L (3.5-5.1) 10/18/17 16:10 Chloride 96 mmol/L (98-107) L 10/18/17 16:10 Carbon Dioxide 25.9 mmol/L (21-32) 10/18/17 16:10 BUN 19 mg/dL (7-18) H 10/18/17 16:10 Creatinine 1.27 mg/dL (0.55-1.02) H 10/18/17 16:10 Est GFR (MDRD) Af Amer 55 (>60) L 10/18/17 16:10 Est GFR (MDRD) Non-Af 46 (>60) L 10/18/17 16:10 Glucose 485 mg/dL (65-99) H 10/18/17 16:10 Calcium 9.8 mg/dL (8.5-10.1) 10/18/17 16:10 Corrected Calcium 10.8 mg/dL (8.5-10.1) H 10/18/17 16:10 Total Bilirubin 0.20 mg/dL (0.2-1.0) 10/18/17 16:10 AST 10 Units/L (15-37) L 10/18/17 16:10 ALT 17 Units/L (12-78) 10/18/17 16:10 Alkaline Phosphatase 169 Units/L (46-116) H 10/18/17 16:10 Creatine Kinase 45 Units/L (26-192) 10/18/17 16:10 CK-MB (CK-2) 1.2 ng/mL (0-4.0) 10/18/17 16:10 CK/CKMB % Calc 2.7 % (<4) 10/18/17 16:10 Troponin I 0.02 ng/mL (0-1.5) 10/18/17 16:10 Total Protein 6.9 g/dL (6.4-8.2) 10/18/17 16:10 Albumin 2.8 g/dL (3.4-5.0) L 10/18/17 16:10 Globulin 4.1 g/dL (2.5-4.5) 10/18/17 16:10 Albumin/Globulin Ratio 0.7 Ratio (1.1-2.1) L 10/18/17 16:10 Specimen Type Clean catch urine 10/18/17 16:17 Urine Color Pale yellow (YELLOW) 10/18/17 16:17 Urine Appearance Slightly hazy (CLEAR) 10/18/17 16:17 Urine pH 5.0 (5.0 - 8.0) 10/18/17 16:17 Ur Specific [place] 1.015 (1.000-1.030) 10/18/17 16:17 Urine Protein 3+ (NEGATIVE) 10/18/17 16:17 Urine Glucose (UA) 4+ (NEGATIVE) 10/18/17 16:17 Urine Ketones Negative (NEGATIVE) 10/18/17 16:17 Urine Occult Blood 2+ (NEGATIVE) 10/18/17 16:17 Urine Nitrite Negative (NEGATIVE) 10/18/17 16:17 Urine Bilirubin Negative (NEGATIVE) 10/18/17 16:17 Urine Urobilinogen Normal (NORMAL) 10/18/17 16:17 Ur Leukocyte Esterase 2+ (NEGATIVE) 10/18/17 16:17 Urine RBC 0-2 /HPF (NONE SEEN) 10/18/17 16:17 Urine WBC 3-5 /HPF (NONE SEEN) 10/18/17 16:17 Ur Squamous Epith Cells Few /HPF (NEGATIVE) 10/18/17 16:17 Amorphous Sediment 1+ /HPF (NEGATIVE) 10/18/17 16:17 Urine Bacteria 1+ /HPF (NEGATIVE) 10/18/17 16:17 Ur Culture Indicated? No/not indicated 10/18/17 16:17 XRAY XRAY Interpreted by: Radiologist XRAY Findings: REPORT DISCUSS WITH PATIENT AND FAMILY. EKG Rate: 81 Lookout: Normal Rhythm: NSR Block: None Hypertrophy: None ST: Old, Ant and Infarct Diagnosis Discharge Problem: Chest pain, rule out acute myocardial infarction
[2017-10-18 16:21] LABS: BASOPHILS # (AUTO) 0.1 X10^3/uL (0.0-0.1); BASOPHILS % (AUTO) 1.1 % (0.2-1.0); EOSINOPHILS # (AUTO) 0.2 x10^3/uL (0.0-0.2); EOSINOPHILS % (AUTO) 1.8 % (0.9-2.9); HEMATOCRIT 36.5 % (36.0-47.0); HEMOGLOBIN 12.6 g/dL (12.0-16.0); LYMPHOCYTES # (AUTO) 2.5 X10^3/uL (1.3-2.9); LYMPHOCYTES % (AUTO) 25.5 % (21.0-51.0); MEAN CORPUSCULAR HEMOGLOBIN 32.8 pg (27.0-34.0); MEAN CORPUSCULAR HGB CONC 34.6 g/dL (33.0-35.0); MEAN CORPUSCULAR VOLUME 94.8 fL (80.0-100.0); MEAN PLATELET VOLUME 8.3 fL (7.4-11.0); MONOCYTES # (AUTO) 0.4 x10^3/uL (0.3-0.8); MONOCYTES % (AUTO) 4.5 % (0.0-13.0); NEUTROPHILS # (AUTO) 6.5 x10^3/uL (2.2-4.8); NEUTROPHILS % (AUTO) 67.1 % (42.0-75.0); PLATELET COUNT 387 X10^3/uL (150.0-450.0); RED BLOOD COUNT 3.86 X10^6/uL (3.5-5.4); RED CELL DISTRIBUTION WIDTH 13.9 % (11.6-16.5); WHITE BLOOD COUNT 9.7 X10^3/uL (3.6-10.0)
--- NOTE | 2017-10-18 16:22 | RAD ---
HISTORY: Chest pain, shortness of breath Study: Single-view of the chest Comparison: May 06, 2017 Findings: The patient is rotated. The cardiac silhouette is enlarged. The lungs are clear without focal infilt rate or effusion. The aortic knob is partially calcified. Postoperative changes of midline sternot gregory noted. IMPRESSION: 1. Cardiomegaly. Reported By:
[2017-10-18 16:33] LABS: BILIRUBIN,URINE NEGATIVE (NEGATIVE); BLOOD/HEMOGLOBIN,URINE 2+ (NEGATIVE); GLUCOSE, URINE 4+ (NEGATIVE); KETONES,URINE NEGATIVE (NEGATIVE); LEUKOCYTE ESTERASE ,URINE 2+ (NEGATIVE); NITRITES,URINE NEGATIVE (NEGATIVE); PROTEIN,URINE 3+ (NEGATIVE); UROBILINOGEN,URINE NORMAL (NORMAL)
[2017-10-18 16:37] LABS: CALCIUM 9.8 mg/dL (8.5-10.1); CARBON DIOXIDE 25.9 mmol/L (21-32); CREATININE 1.27 mg/dL (0.55-1.02); TROPONIN I 0.02 ng/mL (0-1.5)
[2017-10-18 16:41] LABS: ALBUMIN 2.8 g/dL (3.4-5.0); CKMB % 2.7 % (<4); COR CA(FOR HYPOALB) 10.8 mg/dL (8.5-10.1); CREATINE KINASE MB 1.2 ng/mL (0-4.0); TOTAL PROTEIN 6.9 g/dL (6.4-8.2)
[2017-10-18 16:45] LABS: APPEARANCE,URINE SLIGHTLY HAZY (CLEAR); COLOR,URINE PALE YELLOW (YELLOW)
[2017-10-18 16:46] LABS: AMORPHOUS SEDIMENT,UR 1+ /HPF (NEGATIVE); BACTERIA,URINE 1+ /HPF (NEGATIVE); RBC,URINE 0-2 /HPF (NONE SEEN); SQUAMOUS EPITHELIAL CELL,UR FEW /HPF (NEGATIVE)
[2017-10-18] MEDS ORDERED: NS 100 ML IV 100 ML IV ONE (17:14)
--- NOTE | 2017-10-18 18:23 | CT ---
HISTORY: Chest pain Study: CT chest with contrast Comparison: None Technique: Multiple axial images of the chest were obtained from the thoracic inlet to the upper abdo men without the administration of IV contrast. Coronal sagittal reformatted three-dimensional MIP patricia ges were also submitted utilizing CTA protocol. Findings: Scattered subcentimeter lymph nodes are seen within the mediastinum. There is no significant pericar dial effusion observed. Atherosclerotic coronary artery and aortic calcifications are noted. Otherwis e the thoracic aorta is normal in its contour without evidence for aneurysmal dilatation. No definit e filling defects are appreciated within the 1st or 2nd order branches of the pulmonary arterial syst em. No CT evidence of focal consolidation, pneumothorax, or pleural effusion is identified. Although incompletely visualized on this exam the liver appears enlarged. The liver is also somewhat heterogen eous in appearance which may reflect fatty infiltration or perhaps timing of the contrast bolus but r emains indeterminate. Correlation and continued follow-up is indicated for further evaluation. Degene rative changes of the visualized spine are noted. IMPRESSION: No CT evidence of pulmonary embolism is appreciated as noted above. Other findings as noted above. Reported By:
[2017-10-18] MEDS ORDERED: SNACK - Diabetic Appropriate PO SCH (20:00)
[2017-10-18] MEDS: HumuLIN R SUBCUT PRN (20:33)
[2017-10-18 22:17] VITALS: BMI 37.4
[2017-10-18 22:34] LABS: CKMB % 1.9 % (<4); TROPONIN I 0.03 ng/mL (0-1.5)
[2017-10-18] MEDS ORDERED: NITROSTAT SL PRN (23:48)
[2017-10-19 05:37] LABS: BASOPHILS # (AUTO) 0.1 X10^3/uL (0.0-0.1); BASOPHILS % (AUTO) 0.6 % (0.2-1.0); EOSINOPHILS # (AUTO) 0.2 x10^3/uL (0.0-0.2); EOSINOPHILS % (AUTO) 2.7 % (0.9-2.9); HEMOGLOBIN 12.2 g/dL (12.0-16.0); LYMPHOCYTES # (AUTO) 2.4 X10^3/uL (1.3-2.9); LYMPHOCYTES % (AUTO) 28.7 % (21.0-51.0); MEAN CORPUSCULAR HEMOGLOBIN 32.4 pg (27.0-34.0); MEAN CORPUSCULAR HGB CONC 34.7 g/dL (33.0-35.0); MEAN CORPUSCULAR VOLUME 93.4 fL (80.0-100.0); MEAN PLATELET VOLUME 8.3 fL (7.4-11.0); MONOCYTES # (AUTO) 0.5 x10^3/uL (0.3-0.8); MONOCYTES % (AUTO) 6.5 % (0.0-13.0); NEUTROPHILS # (AUTO) 5.1 x10^3/uL (2.2-4.8); NEUTROPHILS % (AUTO) 61.5 % (42.0-75.0); PLATELET COUNT 355 X10^3/uL (150.0-450.0); RED BLOOD COUNT 3.75 X10^6/uL (3.5-5.4); WHITE BLOOD COUNT 8.4 X10^3/uL (3.6-10.0)
[2017-10-19] MEDS: HumuLIN R SUBCUT PRN ×3 (05:52→11:34)
[2017-10-19 05:56] LABS: ALANINE AMINOTRANSFERASE 14 Units/L (12-78); ALBUMIN 2.6 g/dL (3.4-5.0); ALKALINE PHOSPHATASE 154 Units/L (46-116); ASPARTATE AMINO TRANSFERASE 9 Units/L (15-37); BLOOD UREA NITROGEN 19 mg/dL (7-18); CALCIUM 9.9 mg/dL (8.5-10.1); CARBON DIOXIDE 29.1 mmol/L (21-32); CHLORIDE 101 mmol/L (98-107); CHOLESTEROL 261 mg/dL (0-200); CKMB % 2.2 % (<4); COR NA(FOR HYPERGLY) 141 mmol/L (136-145); CREATINE KINASE 49 Units/L (26-192); CREATINE KINASE MB 1.1 ng/mL (0-4.0); CREATININE 1.06 mg/dL (0.55-1.02); HDL CHOLESTEROL 65 mg/dL (40-60); MAGNESIUM 1.6 mg/dL (1.7-2.9); SODIUM 136 mmol/L (136-145); TOTAL PROTEIN 6.5 g/dL (6.4-8.2); TRIGLYCERIDES 492 mg/dL (0-150); TROPONIN I 0.03 ng/mL (0-1.5); eGFR NON BLACK RACES 56 (>60)
[2017-10-19] MEDS ORDERED: POTASSIUM CHLORIDE LIQ 20 MEQ UDC PO PRN (06:10)
[2017-10-19] MEDS ORDERED: K-RIDER 10 MEQ/NS 100 ML 10 MEQ/100 ML BAG IV PRN (06:10)
[2017-10-19] MEDS ORDERED: POTASSIUM CHL 60 MEQ/NS 0.45% 500 ML IV PRN (06:10)
[2017-10-19] MEDS ORDERED: K-LYTE EFFERVESCENT PO PRN (06:10)
[2017-10-19] MEDS ORDERED: POTASSIUM CHL 40 MEQ/NS 0.45% 500 ML IV PRN (06:10)
[2017-10-19] MEDS ORDERED: NS 250 ML IV 250 ML IV ONE (06:28)
[2017-10-19] MEDS: MAGNESIUM SULFATE 1 GRAM/100 mL PREMIX 2 G/200 ML BAG IV SCH ×2 (06:49→08:00)
[2017-10-19] MEDS ORDERED: NS 250 ML IV 250 ML IV SCH (07:00)
[2017-10-19 12:27] VITALS: BP 146/81
== END 2017-10-19 14:25 | disposition home or self-care (01) ==
LOC: MED/SURG 15:54 → ER 15:54 → MED/SURG 19:23
PROVIDERS: ADMIT Obstetrics & Gynecology Obstetrics; ATTEND Obstetrics & Gynecology Obstetrics
DX: R79.1 Abnormal coagulation profile; E11.65 Type 2 diabetes mellitus with hyperglycemia; Z79.01 Long term (current) use of anticoagulants; R07.2 Precordial pain; R94.31 Abnormal electrocardiogram [ECG] [EKG]; Z79.899 Other long term (current) drug therapy; R94.4 Abnormal results of kidney function studies; I51.7 Cardiomegaly
CPT/HCPCS: 36415; 71010; 71045; 71275; 80053; 80061; 81001; 82550; 82553; 83735; 84484; 85025; 85378; 85610; 85730; 93005; 93010; 94760; 96365; 99284; A4216; A4222; G0378; J1815; J3475; J7050

== ENCOUNTER 2018-04-03 20:55 | Inpatient (IN) ==
[2018-04-03 21:33] LABS: BASOPHILS % (AUTO) 0.4 % (0.2-1.0); EOSINOPHILS # (AUTO) 0.3 x10^3/uL (0.0-0.2); EOSINOPHILS % (AUTO) 2.7 % (0.9-2.9); HEMATOCRIT 33.1 % (36.0-47.0); HEMOGLOBIN 10.9 g/dL (12.0-16.0); LYMPHOCYTES # (AUTO) 2.1 X10^3/uL (1.3-2.9); LYMPHOCYTES % (AUTO) 21.8 % (21.0-51.0); MEAN CORPUSCULAR VOLUME 97.1 fL (80.0-100.0); MEAN PLATELET VOLUME 7.5 fL (7.4-11.0); MONOCYTES # (AUTO) 0.6 x10^3/uL (0.3-0.8); MONOCYTES % (AUTO) 6.6 % (0.0-13.0); NEUTROPHILS # (AUTO) 6.7 x10^3/uL (2.2-4.8); NEUTROPHILS % (AUTO) 68.5 % (42.0-75.0); PLATELET COUNT 426 X10^3/uL (150.0-450.0); RED BLOOD COUNT 3.41 X10^6/uL (3.5-5.4); RED CELL DISTRIBUTION WIDTH 15.4 % (11.6-16.5); WHITE BLOOD COUNT 9.8 X10^3/uL (3.6-10.0)
[2018-04-03 21:47] LABS: ALBUMIN 2.5 g/dL (3.4-5.0); CALCIUM 9.5 mg/dL (8.5-10.1); COR CA(FOR HYPOALB) 10.7 mg/dL (8.5-10.1); CREATININE 1.31 mg/dL (0.55-1.02); TOTAL PROTEIN 6.3 g/dL (6.4-8.2)
[2018-04-03 21:52] LABS: BILIRUBIN,URINE NEGATIVE (NEGATIVE); BLOOD/HEMOGLOBIN,URINE 2+ (NEGATIVE); GLUCOSE, URINE 2+ (NEGATIVE); KETONES,URINE 1+ (NEGATIVE); LEUKOCYTE ESTERASE ,URINE 1+ (NEGATIVE); NITRITES,URINE NEGATIVE (NEGATIVE); PROTEIN,URINE 4+ (NEGATIVE); UROBILINOGEN,URINE NORMAL (NORMAL)
[2018-04-03 22:07] LABS: APPEARANCE,URINE CLEAR (CLEAR); BACTERIA,URINE 2+ /HPF (NEGATIVE); COLOR,URINE YELLOW (YELLOW); RENAL EPITHELIAL CELLS,URINE RARE /HPF (NEGATIVE); SQUAMOUS EPITHELIAL CELL,UR FEW /HPF (NEGATIVE)
--- NOTE | 2018-04-03 22:14 | CT ---
HISTORY: Multiple seizures Study: CT brain without contrast Comparison: May 06, 2017 Technique: Multiple axial images of the brain were obtained from the skull base to the vertex without administration of IV contrast. Findings: No acute intraparenchymal hemorrhage or mass can be identified. No extra-axial fluid collections are seen. No alteration in the attenuation of the brain parenchyma can be identified to suggest acute or subacute ischemic change. Moderate small vessel ischemic changes and global volume loss are again noted. Chronic bilateral occipital encephalomalacia is stable when compared to prior. The orbits are unremarkable. The osseous structures are intact. Impression: No acute intracranial findings. Chronic bilateral occipital encephalomalacia. Moderate small vessel ischemic changes and global volume loss. Reported By:
--- NOTE | 2018-04-03 22:18 | RAD ---
HISTORY: Multiple seizures Study: Portable chest x-ray one view Comparison: October 18, 2017 Findings: The trachea is midline. The cardiomediastinal silhouette is enlarged but stable. Central vascular congestion and interstitial prominence. No focal consolidation or pneumothorax. Median sternotomy are noted. Cardiac leads overlie the chest. The osseous structures are intact. IMPRESSION: Cardiomegaly and central vascular congestion. Likely mild edema. Reported By:
--- NOTE | 2018-04-03 22:30 | DR.SEIZA ---
HPI Time Seen Time Seen by Provider: 04/03/18 21:16 Primary Care Physician Primary Care Physician: MONICA Conte Chief Complaint Doctors Comments: Patient presented to the ED with family members s/p seizure activity. She had been hospitalized in [place] two to three weeks prior for pneumonia and congestive heart failure. She had a cardiac cather ization; she had a triple bypass surgery two years ago; heart has 20% functionl per family members. She was in CHF for one week and oxygen as needed. She had a stroke two years ago and most of her vision is lost. She is a diabetic and on insulin Chief Complaint:: [employer] [facility] WAS DISPATCHED OUT TO PATIENT HAVING SEZIURES. ON SCENE EMS STATED PATIMILY WAS AWAKE ALERT OREINTED AND TALKING. FAMILY STATED THAT SHE HAD ALREADY HAD 7 SEIZURES BEFORE EMS ARRIVED. ONCE BACKED UP TO ED DOORS EMS WITNESSED PATINET HAVING SEIZURE ACTIVITY DIAZEPAM 1MG IV BY Ayana HARDY IN EMS PER DR. HORTON ORDER. PATIENT BROUGHT IN BY STRETCHER NO SEIZURE ACTIVITY AT THAT TIME PATINET LEFT SIDE OF MOUTH DRAWN UP AND LEFT SIDE WEAKNESS. ASK PATIENT TO SQUEEZE HANDS STRONG DRAIN CLEANER IN RIGHT HANG NO DRAIN CLEANER AT ALL ON IN LEFT HAND. PATINET ABLE TO RAISE BOTH LEGS. PATINETS ONLY C/O WAS SHE WAS HOT. Self Treatment fo Chief Complaint: DIAZEPAM 1MG PER EMS Source History Provided: EMS Mode of Arrival Mode of Arrival: EMS Timing Onset of Chief Complaint: 04/03/18 PMH PMH Past Medical History: Yes Past Medical History: CHF, COPD, CVA, Depression, Diabetes, Hypertension, Hypothyroidism, [place] and Seizures Past Medical History Comment: MEMORY AND BLINDNESS FOR PREVIOUS CVA Past Surgical History: Yes Surgical History: CABG/Valve Surgery and Hysterectomy Family History History of Family Medical Conditions: Yes Family Medical History: Diabetes Mellitus and Cancer Social History Alcohol Use: None Do you use any recreational Drugs:: No Lives Where: Home infectious screening Have you traveled outside the country in the last 6 months?: No PE Vital Signs Vitals: Temperature 97.5 F Pulse Rate [Brachial] 73 Pulse Rate 78 Respiratory Rate 22 Blood Pressure [Right Arm] 133/63 Blood Pressure [Left Arm] 122/60 Blood Pressure [Standing] 130/61 Blood Pressure [Sitting] 123/68 Blood Pressure [Lying] 142/79 Blood Pressure 133/63 O2 Sat by Pulse Oximetry 100 COURSE Treatment Treatment: fosphenytoin 1mg IV, cipro 400mg Consultation Called: 23:15 Consultation Comments: Dr. Fernández agreed to admit for further treatment ROR Labs Reviewed Laboratory Results Reviewed?: Yes Result Diagrams: 04/03/18 21:04/03/18 21: Laboratory: WBC 9.8 X10^3/uL (3.6-10.0) 04/03/18: RBC 3.41 X10^6/uL (3.5-5.4) L 04/03/18: Hgb 10.9 g/dL (12.0-16.0) L 04/03/18: Hct 33.1 % (36.0-47.0) L 04/03/18: MCV 97.1 fL (80.0-100.0) 04/03/18: MCH 32.0 pg (27.0-34.0) 04/03/18: MCHC 33.0 g/dL (33.0-35.0) 04/03/18: RDW 15.4 % (11.6-16.5) 04/03/18: Plt Count 426 X10^3/uL (150.0-450.0) 04/03/18: MPV 7.5 fL (7.4-11.0) 04/03/18: Neut % (Auto) 68.5 % (42.0-75.0) 04/03/18: Lymph % (Auto) 21.8 % (21.0-51.0) 04/03/18: Mcminn % (Auto) 6.6 % (0.0-13.0) 04/03/18: Eos % (Auto) 2.7 % (0.9-2.9) 04/03/18: Baso % (Auto) 0.4 % (0.2-1.0) 04/03/18: Neut # (Auto) 6.7 x10^3/uL (2.2-4.8) H 04/03/18: Lymph # (Auto) 2.1 X10^3/uL (1.3-2.9) 04/03/18: Mcminn # (Auto) 0.6 x10^3/uL (0.3-0.8) 04/03/18 21:27 Eos # (Auto) 0.3 x10^3/uL (0.0-0.2) H 04/03/18 21:27 Baso # (Auto) 0.0 X10^3/uL (0.0-0.1) 04/03/18 21:27 Absolute Nucleated RBC 0.0 /100WBC 04/03/18 21:27 Sample Site Lrad 04/03/18 23:34 ABG pH 7.120 (7.35-7.45) L* 04/03/18 23:34 ABG pCO2 113.0 mmHg (35.0-45.0) H* 04/03/18 23:34 ABG pO2 48.0 mmHg (80.0-100.0) L* 04/03/18 23:34 ABG HCO3 36.7 mmol/L (22-26) H* 04/03/18 23:34 ABG O2 Saturation 68.0 % (90-100) L* 04/03/18 23:34 ABG Base Excess 3.9 mmol/L (-2.0-2.0) H 04/03/18 23:34 Kevin Test Yes 04/03/18 23:34 A-a Gradient 67.0 mmHg 04/03/18 23:34 FiO2 36.0 04/03/18 23:34 Blood Gas Comments Surinder abg well-mtf 04/03/18 23:34 Sodium 142 mmol/L (136-145) 04/03/18 21: Corrected Sodium 145 mmol/L (136-145) 04/03/18 21: Potassium 3.5 mmol/L (3.5-5.1) 04/03/18 21: Chloride 103 mmol/L (98-107) 04/03/18 21: Carbon Dioxide 31.0 mmol/L (21-32) 04/03/18 21: BUN 17 mg/dL (7-18) 04/03/18 21:27 Creatinine 1.31 mg/dL (0.55-1.02) H 04/03/18 21:27 Est GFR (MDRD) Af Amer 53 (>60) L 04/03/18 21:27 Est GFR (MDRD) Non-Af 44 (>60) L 04/03/18 21: Glucose 234 mg/dL (65-99) H 04/03/18 21: Calcium 9.5 mg/dL (8.5-10.1) 04/03/18 21: Corrected Calcium 10.7 mg/dL (8.5-10.1) H 04/03/18 21: Total Bilirubin 0.20 mg/dL (0.2-1.0) 04/03/18 21: AST 12 Units/L (15-37) L 04/03/18 21: ALT 22 Units/L (12-78) 04/03/18 21: Alkaline Phosphatase 158 Units/L (46-116) H 04/03/18 21: Total Protein 6.3 g/dL (6.4-8.2) L 04/03/18 21: Albumin 2.5 g/dL (3.4-5.0) L 04/03/18 21: Globulin 3.8 g/dL (2.5-4.5) 04/03/18 21: Albumin/Globulin Ratio 0.7 Ratio (1.1-2.1) L 04/03/18 21: Specimen Type Catherized urine 04/03/18 21:34 Urine Color Yellow (YELLOW) 04/03/18 21:34 Urine Appearance Clear (CLEAR) 04/03/18 21:34 Urine pH 5.0 (5.0 - 8.0) 04/03/18 21:34 Ur Specific [place] 1.015 (1.000-1.030) 04/03/18 21:34 Urine Protein 4+ (NEGATIVE) 04/03/18 21:34 Urine Glucose (UA) 2+ (NEGATIVE) 04/03/18 21:34 Urine Ketones 1+ (NEGATIVE) 04/03/18 21:34 Urine Occult Blood 2+ (NEGATIVE) 04/03/18 21: Urine Nitrite Negative (NEGATIVE) 04/03/18 21:34 Urine Bilirubin Negative (NEGATIVE) 04/03/18 21:34 Urine Urobilinogen Normal (NORMAL) 04/03/18 21:34 Ur Leukocyte Esterase 1+ (NEGATIVE) 04/03/18 21:34 Urine RBC 5-10 /HPF (NONE SEEN) 04/03/18 21:34 Urine WBC 5-10 /HPF (NONE SEEN) 04/03/18 21:34 Ur Squamous Epith Cells Few /HPF (NEGATIVE) 04/03/18 21:34 Ur Renal Epithelial Cell Rare /HPF (NEGATIVE) 04/03/18 21:34 Urine Bacteria 2+ /HPF (NEGATIVE) 04/03/18 21:34 Ur Culture Indicated? Yes/culture set up 04/03/18 21:34 Phenytoin 2.0 ug/mL (10-20) L 04/03/18 21:27 Other Results Comments: CT Brain w/o: comparison May: No acute intraparenchymal hemorrhage or mass can be identified. No extra-axial fluid collections are seen. No alteration in the attenuation of the brain parenchyma can be identified to suggest acute or subacute ischemic change. Moderate small vessel ischemic changes and global volume loss are again noted. Chronic bilateral occipital encephamalacia is stable when compared to prior. The orbits are unremarkable. The osseous structures are intact. Impression: No acute intracranial findings. Chronic bilateral occipital encephalomalacia. Moderate small vessel ischemic changes and global volume loss. Portable Chest: The trachea is midline. The cardiomediastinal silhouette is enlarged but stable. Central vascular congestion and interstitial prominence. No focal consolidation of pneumothorax. Median sternotomy are noted. Cardiac leads overlie the chest. The osseous structures are intact. Impression: Cardiomegaly and central vascular congestion. Likely mild edema. XRAY XRAY Interpreted by: Radiologist Diagnosis Discharge Problem: Acute UTI, Seizure disorder
[2018-04-03] MEDS ORDERED: DILANTIN INJ 100 MG VIAL IVP ONE (22:44)
[2018-04-03] MEDS ORDERED: CEREBYX INJ IVP ONE (22:47)
[2018-04-03] MEDS ORDERED: NS 100 ML IV 100 ML IV ONE (22:50)
[2018-04-03] MEDS ORDERED: CEREBYX INJ ONE (22:51)
[2018-04-03] MEDS ORDERED: CIPRO IV 400 MG PREMIX* 400 MG/200 ML IV.SOLN. IV ONE (22:54)
[2018-04-03] MEDS: CIPRO IV 400 MG PREMIX* 400 MG/200 ML IV.SOLN. IV SCH (23:11)
[2018-04-03 23:39] LABS: ABG BASE EXCESS 3.9 mmol/L (-2.0-2.0)
[2018-04-03] MEDS ORDERED: LASIX IVP ONE ×2 (23:40→23:44)
[2018-04-03 23:41] LABS: ABG ALLEN TEST YES; ABG HCO3 36.7 mmol/L (22-26)
[2018-04-04] MEDS ORDERED: K-RIDER 10 MEQ/NS 100 ML 10 MEQ/100 ML BAG IV PRN (00:44)
[2018-04-04] MEDS ORDERED: MICRO K EXTEN CAP 10 MEQ PO PRN (00:44)
[2018-04-04] MEDS ORDERED: KLOR-CON PO PRN (00:44)
[2018-04-04] MEDS ORDERED: POTASSIUM CHL 60 MEQ/NS 0.45% 500 ML IV PRN (00:44)
[2018-04-04] MEDS ORDERED: POTASSIUM CHL 40 MEQ/NS 0.45% 500 ML IV PRN (00:44)
[2018-04-04] MEDS ORDERED: POTASSIUM CHLORIDE LIQ 20 MEQ UDC PO PRN (00:44)
[2018-04-04] MEDS ORDERED: NS 250 ML IV 250 ML IV PRN (01:35)
[2018-04-04] MEDS ORDERED: NS 250 ML IV 250 ML IV ONE (01:38)
[2018-04-04] MEDS ORDERED: MAGNESIUM SULFATE 1 GRAM/100 mL PREMIX 4 G/400 ML BAG IV ONE (01:40)
[2018-04-04] MEDS ORDERED: K-RIDER 10 MEQ/NS 100 ML 0 MEQ/0 ML BAG IV ONE (01:48)
[2018-04-04] MEDS: MAGNESIUM SULFATE 1 GRAM/100 mL PREMIX 1 GM/100 ML BAG IV PRN ×4 (01:57→05:00)
[2018-04-04 01:58] LABS: ABG BASE EXCESS 4.5 mmol/L (-2.0-2.0)
[2018-04-04 02:00] LABS: ABG ALLEN TEST POS; ABG HCO3 31.8 mmol/L (22-26)
[2018-04-04] MEDS ORDERED: NS 250 ML IV 250 ML IV SCH (02:00)
[2018-04-04] MEDS ORDERED: TYLENOL 325 MG TAB PO PRN (02:14)
[2018-04-04] MEDS ORDERED: K-LYTE EFFERVESCENT ONE (02:17)
[2018-04-04] MEDS ORDERED: TYLENOL 325 MG TAB PO ONE (02:17)
[2018-04-04 05:20] LABS: BASOPHILS % (AUTO) 0.2 % (0.2-1.0); EOSINOPHILS % (AUTO) 0.1 % (0.9-2.9); HEMATOCRIT 31.2 % (36.0-47.0); HEMOGLOBIN 10.1 g/dL (12.0-16.0); LYMPHOCYTES # (AUTO) 0.7 X10^3/uL (1.3-2.9); LYMPHOCYTES % (AUTO) 6.1 % (21.0-51.0); MEAN CORPUSCULAR HEMOGLOBIN 31.8 pg (27.0-34.0); MEAN CORPUSCULAR HGB CONC 32.5 g/dL (33.0-35.0); MEAN PLATELET VOLUME 8.2 fL (7.4-11.0); MONOCYTES # (AUTO) 0.4 x10^3/uL (0.3-0.8); MONOCYTES % (AUTO) 3.5 % (0.0-13.0); NEUTROPHILS # (AUTO) 10.3 x10^3/uL (2.2-4.8); NEUTROPHILS % (AUTO) 90.1 % (42.0-75.0); PLATELET COUNT 415 X10^3/uL (150.0-450.0); RED BLOOD COUNT 3.18 X10^6/uL (3.5-5.4); RED CELL DISTRIBUTION WIDTH 15.3 % (11.6-16.5); WHITE BLOOD COUNT 11.4 X10^3/uL (3.6-10.0)
[2018-04-04 05:38] LABS: ALBUMIN 2.5 g/dL (3.4-5.0); CALCIUM 9.3 mg/dL (8.5-10.1); CARBON DIOXIDE 32.8 mmol/L (21-32); COR CA(FOR HYPOALB) 10.5 mg/dL (8.5-10.1); CREATININE 1.46 mg/dL (0.55-1.02); TOTAL PROTEIN 6.1 g/dL (6.4-8.2)
[2018-04-04 06:05] LABS: PLATELET MORPHOLOGY COMMENT NORMAL (NORMAL)
[2018-04-04] MEDS: HumuLIN R SUBCUT PRN ×4 (06:28→21:43)
[2018-04-04 09:00] LABS: CKMB % 2.5 % (<4); CREATINE KINASE MB 1.1 ng/mL (0-4.0); TROPONIN I 0.07 ng/mL (0-1.5)
[2018-04-04] MEDS: CIPRO IV 400 MG PREMIX* 400 MG/200 ML IV.SOLN. IV SCH (09:37)
[2018-04-04] MEDS: LASIX IVP SCH ×2 (09:38→20:32)
[2018-04-04 09:54] VITALS: BMI 37.8
[2018-04-04 11:11] LABS: ABG BASE EXCESS 9.5 mmol/L (-2.0-2.0)
[2018-04-04 11:12] LABS: ABG HCO3 34.3 mmol/L (22-26)
[2018-04-04] MEDS ORDERED: SALINE 3% 15 ML NEB TX NEB ONE (14:45)
[2018-04-04] MEDS ORDERED: XOPENEX 1.25 MG/3 ML NEBULE NEB PRN (14:57)
[2018-04-04 15:29] LABS: CKMB % 2.4 % (<4); CREATINE KINASE 42 Units/L (26-192); CREATINE KINASE MB < 1.0 ng/mL (0-4.0); TROPONIN I 0.07 ng/mL (0-1.5)
[2018-04-04] MEDS ORDERED: VALIUM INJ IVP PRN (15:51)
[2018-04-04] MEDS ORDERED: VALIUM INJ IM PRN (16:33)
[2018-04-04] MEDS: NORCO 5/325 MG TAB PO PRN (18:06)
[2018-04-04] MEDS ORDERED: SNACK - Diabetic Appropriate PO SCH (20:00)
[2018-04-04 21:00] LABS: CKMB % 2.7 % (<4); CREATINE KINASE 37 Units/L (26-192); CREATINE KINASE MB < 1.0 ng/mL (0-4.0); TROPONIN I 0.08 ng/mL (0-1.5)
[2018-04-05] MEDS: NORCO 5/325 MG TAB PO PRN (03:51)
[2018-04-05] MEDS: HumuLIN R SUBCUT PRN ×2 (05:33→11:30)
[2018-04-05 06:03] LABS: BASOPHILS % (AUTO) 0.5 % (0.2-1.0); EOSINOPHILS # (AUTO) 0.2 x10^3/uL (0.0-0.2); EOSINOPHILS % (AUTO) 2.7 % (0.9-2.9); HEMATOCRIT 29.4 % (36.0-47.0); LYMPHOCYTES # (AUTO) 2.2 X10^3/uL (1.3-2.9); LYMPHOCYTES % (AUTO) 25.4 % (21.0-51.0); MEAN CORPUSCULAR HEMOGLOBIN 32.7 pg (27.0-34.0); MEAN CORPUSCULAR HGB CONC 34.1 g/dL (33.0-35.0); MEAN CORPUSCULAR VOLUME 96.1 fL (80.0-100.0); MEAN PLATELET VOLUME 8.1 fL (7.4-11.0); MONOCYTES # (AUTO) 0.6 x10^3/uL (0.3-0.8); MONOCYTES % (AUTO) 7.5 % (0.0-13.0); NEUTROPHILS # (AUTO) 5.5 x10^3/uL (2.2-4.8); NEUTROPHILS % (AUTO) 63.9 % (42.0-75.0); PLATELET COUNT 350 X10^3/uL (150.0-450.0); RED BLOOD COUNT 3.05 X10^6/uL (3.5-5.4); RED CELL DISTRIBUTION WIDTH 15.3 % (11.6-16.5); WHITE BLOOD COUNT 8.6 X10^3/uL (3.6-10.0)
[2018-04-05 06:15] LABS: ALANINE AMINOTRANSFERASE 22 Units/L (12-78); ALBUMIN 2.4 g/dL (3.4-5.0); ALKALINE PHOSPHATASE 152 Units/L (46-116); ASPARTATE AMINO TRANSFERASE 12 Units/L (15-37); BLOOD UREA NITROGEN 18 mg/dL (7-18); CALCIUM 9.4 mg/dL (8.5-10.1); CARBON DIOXIDE 34.2 mmol/L (21-32); CHLORIDE 104 mmol/L (98-107); COR CA(FOR HYPOALB) 10.7 mg/dL (8.5-10.1); COR NA(FOR HYPERGLY) 144 mmol/L (136-145); CREATININE 1.05 mg/dL (0.55-1.02); MAGNESIUM 1.8 mg/dL (1.7-2.9); SODIUM 142 mmol/L (136-145); TOTAL PROTEIN 5.7 g/dL (6.4-8.2); eGFR NON BLACK RACES 57 (>60)
--- NOTE | 2018-04-05 09:36 | DR.H&P ---
H&P - History & Physical for Day of: H&P Date: 05/01/18 - Chief Complaint Chief Complaint: seizure activity - History of Present Illness History of Present Illness: F 63 WF ER ADMISSION AFTER PRESENTING WITH EMS ACTIVELY SEIZING. MAK STATED THAT SHE HAD ALREADY HAD 7 SEIZURES BEFORE EMS ARRIVED. ONCE BACKED UP TO ED DOORS EMS WITNESSED PATINET HAVING SEIZURE ACTIVITY DIAZEPAM 1MG IV BY Ayana HARDY IN EMS PER DR. HORTON ORDER. PATIENT BROUG HT IN BY STRETCHER NO SEIZURE ACTIVITY AT THAT TIME PATINET LEFT SIDE OF MOUTH DRAWN UP AND LEFT SIDE WEAKNESS. ASK PATIENT TO SQUEEZE HANDS STRONG STATISTICS INTERN IN RIGHT HANG NO STATISTICS INTERN AT ALL ON IN LEFT HAND. PATINET ABLE TO RAISE BOTH LEGS. 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 SPOUSE STATES PT WAS RECENTLY IN [place] WITH PNEUMONIA AND IN [facility], PT WAS HOME 3-4 DAYS BEFORE ONSET OF SEIZURE. PT HAS PMH OF CVA, HTN, OA, ZULEMA, SEIZURES, CHF, CAD. PT WAS HYPOXIC IN ER WITH PO2 48. PT ADMITTED TO ICU. - Past Medical History Past Medical History: Anxiety, Arthritis, CHF, COPD, Coronary Artery Disease, CVA, Depression, Diabetes, Hypertension, Hypothyroidism, [place], Seizures - Past Surgical History Surgical History: CABG/Valve Surgery, Hysterectomy - Family History Family Medical History: Diabetes Mellitus, Cancer, Heart Failure - Social History Does patient currently use any type of tobacco product: No Have you used tobacco products in the last 12 months: No Type of Tobacco Use: None Does any household member use tobacco: No Alcohol Use: None Drug Use: None - Medications Home Medications: Sulfa (Sulfonamide Antibiotics) [SULFA] Allergy (Verified 12/14/16 13:55) ciprofloxacin [From Cipro] Adverse Reaction (Verified 04/04/18 11:29) CONTINUE taking the following medications carvedilol [Coreg] 25 mg PO BID 04/03/18 [History] famotidine [Pepcid] 40 mg PO QHS 04/03/18 [History] insulin detemir U-100 [Levemir FlexTouch U-100 Insuln] 25 unit SUBCUT QHS 04/03/18 [History] insulin regular human [Novolin R Regular U-100 Insuln] 1 sliding scale dose SUBCUT UD 04/03/18 [History] spironolactone 25 mg PO QDAY 04/03/18 [History] - Review of Systems Constitutional: Other (AMS) Eyes: No Symptoms Reported ENT: No Symptoms Reported Respiratory: Shortness of Breath Cardiovascular: No Symptoms Reported Gastrointestinal: No Symptoms Reported Genitourinary: No Symptoms Reported Musculoskeletal: No Symptoms Reported Skin: No Symptoms Reported Neurological: Weakness, Seizures - Physical Exam Vital Signs: Temperature 98.1 F Pulse Rate [Brachial] 79 Pulse Rate 65 Respiratory Rate 18 Blood Pressure [Right Arm] 133/63 Blood Pressure [Left Arm] 147/84 Blood Pressure [Standing] 130/61 Blood Pressure [Sitting] 123/68 Blood Pressure [Lying] 142/79 Blood Pressure 130/61 O2 Sat by Pulse Oximetry 100 Oriented: Person Eyes: Normal Ear: Normal Nose: Normal Throat: Normal Respiratory: Wheezes Throughout (MILD DIFFUSE EXPIRATORY WHEEZES. ), RLL Diminished, LLL Diminished Cardiovascular: Tachycardia : Normal Auscultation: Bowel Sounds: Normal Palpation: Normal Tenderness: Normal Skin: Decreased Turgur Musculoskeletal: Normal Affect: Anxious Speech Pattern: Delayed - Assessment/Plan (1) Seizure disorder, grand mal Status: Acute Plan: ADMIT ICU. CONTINUOUS SUPPLEMENTAL O2, BIPAP PRN. REPEAT ABG, CXR AND CT HEAD ON ADMISSION. STRICT I &OS, IV LASIX. CARDIAC MONITORING, VERIFY HOME MEDICATION, BLOOD SUGAR CONTROL, SEIZURE PRECAUTIONS, DILANTIN LEVEL (2) Seizure disorder as sequela of cerebrovascular accident Status: Acute (3) Diabetes mellitus, type II Status: Chronic (4) HTN (hypertension) Status: Chronic (5) Hyperlipidemia Status: Chronic (6) CAD (coronary artery disease) Status: Chronic - Allergies Allergies/Adverse Reactions: Allergies Allergy/AdvReac Type Severity Reaction Status Date / Time Sulfa (Sulfonamide Allergy Verified 12/14/16 13:55 Antibiotics) [SULFA] ciprofloxacin [From Cipro] AdvReac Verified 04/04/18 11:29
[2018-04-05] MEDS: LASIX IVP SCH (10:04)
[2018-04-05] MEDS: K-DUR TAB 20 MEQ PO PRN ×2 (10:09→12:47)
[2018-04-05 10:41] LABS: ABG BASE EXCESS 9.5 mmol/L (-2.0-2.0)
[2018-04-05 10:42] LABS: ABG HCO3 35.3 mmol/L (22-26)
--- NOTE | 2018-04-05 11:05 | PCM.PROG ---
Progress Note - Progress Note for Day of Date of Exam: 04/04/18 - Subjective Subjective: 63 WF ER ADMISSION WITH INTRACTABLE SEIZURE ACTIVITY. PT IN ICU WITH CONTINUOUS SUPPLEMENTAL O2, GENTLE IV HYDRATION, SUPPLEMENTAL O2. URINE CULTURE COLLECTED ON ADMISSION, NO GROWTH AT THIS TIME. PT CONTINUES WITH CO DIFFUSE WEAKNESS, NO UNILATERAL UPPER OR LOWER EXTREMITY DEFICIT. PT DENIES CHEST PAIN. PT WAS ON BIPAP DURING THE NIGHT, ON NASAL CANULA AT THIS TIME, WITH O2 SAT 90'S. PT ALERT AND ORIENTED THIS AM. - Past Medical Family Social History Past Med/Fam/Surg Hx: No changes since H&P Allergies: Allergies Sulfa (Sulfonamide Antibiotics) [SULFA] Allergy (Verified 12/14/16 13:55) ciprofloxacin [From Cipro] Adverse Reaction (Verified 04/04/18 11:29) - Review of Systems ROS: No change since H&P - Vital Signs and I&O's Vital Signs: Temperature 98.1 F Pulse Rate [Brachial] 79 Pulse Rate 75 Respiratory Rate 25 Blood Pressure [Right Arm] 133/63 Blood Pressure [Left Arm] 147/84 Blood Pressure [Standing] 130/61 Blood Pressure [Sitting] 123/68 Blood Pressure [Lying] 142/79 Blood Pressure 137/67 O2 Sat by Pulse Oximetry 92 Intake and Output: Intake & Output 04/02/18 04/03/18 04/04/18 04/05/18 11:59 11:59 11:59 11:59 Intake Total 892 / 892 743 / 743 Output Total 325 / 325 1000 / 1000 Balance 567 / 567 -257 / -257 - Physical Exam Oriented: Time, Person, Place, Other (SHORT TERM MEMORY IMPAIRMENT DUE TO CVA) Eyes: Blurred Vision Ear: Normal Nose: Normal Throat: Normal Respiratory: Diminished Cardiovascular: Edema : Normal Auscultation: Bowel Sounds: Normal Palpation: Normal Tenderness: Normal Skin: Normal Musculoskeletal: Back:Thoracic, Back:Lumbar Psychiatric: Anxiety Speech Pattern: Clear, Appropriate - Laboratory and Diagnostics Result Diagrams: 04/05/18 05:27 04/05/18 05:27 Labs: 04/03/18 21:34 Urine,Catheterized Urine Culture - Preliminary Laboratory WBC 8.6 X10^3/uL (3.6-10.0) 04/05/18 05:27 RBC 3.05 X10^6/uL (3.5-5.4) L 04/05/18 05:27 Hgb 10.0 g/dL (12.0-16.0) L 04/05/18 05:27 Hct 29.4 % (36.0-47.0) L 04/05/18 05:27 MCV 96.1 fL (80.0-100.0) 04/05/18 05:27 MCH 32.7 pg (27.0-34.0) 04/05/18 05:27 MCHC 34.1 g/dL (33.0-35.0) 04/05/18 05:27 RDW 15.3 % (11.6-16.5) 04/05/18 05:27 Plt Count 350 X10^3/uL (150.0-450.0) 04/05/18 05:27 Plt Count Comment Adequate (ADEQUATE) 04/04/18 04:20 MPV 8.1 fL (7.4-11.0) 04/05/18 05:27 Neut % (Auto) 63.9 % (42.0-75.0) 04/05/18 05:27 Lymph % (Auto) 25.4 % (21.0-51.0) 04/05/18 05:27 [place] % (Auto) 7.5 % (0.0-13.0) 04/05/18 05:27 Eos % (Auto) 2.7 % (0.9-2.9) 04/05/18 05:27 Baso % (Auto) 0.5 % (0.2-1.0) 04/05/18 05:27 Neut # (Auto) 5.5 x10^3/uL (2.2-4.8) H 04/05/18 05:27 Lymph # (Auto) 2.2 X10^3/uL (1.3-2.9) 04/05/18 05:27 [place] # (Auto) 0.6 x10^3/uL (0.3-0.8) 04/05/18 05:27 Eos # (Auto) 0.2 x10^3/uL (0.0-0.2) 04/05/18 05:27 Baso # (Auto) 0.0 X10^3/uL (0.0-0.1) 04/05/18 05:27 Absolute Nucleated RBC 0.0 /100WBC 04/05/18 05:27 Total Counted 100 04/04/18 04:20 Neutrophils % (Manual) 88 % (39-76) H 04/04/18 04:20 Lymphocytes % (Manual) 8 % (13-43) L 04/04/18 04:20 Monocytes % (Manual) 4 % (4-9) 04/04/18 04:20 Plt Morphology Comment Normal (NORMAL) 04/04/18 04:20 RBC Morphology Normal (NORMAL) 04/04/18 04:20 Sample Site Rbr 04/05/18 10:35 ABG pH 7.440 (7.35-7.45) 04/05/18 10:35 ABG pCO2 52.0 mmHg (35.0-45.0) H* 04/05/18 10:35 ABG pO2 82.0 mmHg (80.0-100.0) 04/05/18 10:35 ABG HCO3 35.3 mmol/L (22-26) H* 04/05/18 10:35 ABG O2 Saturation 96.0 % (90-100) 04/05/18 10:35 ABG Base Excess 9.5 mmol/L (-2.0-2.0) H 04/05/18 10:35 Kevin Test Na 04/05/18 10:35 A-a Gradient 81.0 mmHg 04/05/18 10:35 FiO2 32.0 04/05/18 10:35 Blood Gas Comments Surinder well. aw/gmb 04/05/18 10:35 Sodium 142 mmol/L (136-145) 04/05/18 05:27 Corrected Sodium 144 mmol/L (136-145) 04/05/18 05:27 Potassium 3.1 mmol/L (3.5-5.1) L 04/05/18 05:27 Chloride 104 mmol/L (98-107) 04/05/18 05:27 Carbon Dioxide 34.2 mmol/L (21-32) H 04/05/18 05:27 BUN 18 mg/dL (7-18) 04/05/18 05:27 Creatinine 1.05 mg/dL (0.55-1.02) H 04/05/18 05:27 Est GFR (MDRD) Af Amer > 60 (>60) 04/05/18 05:27 Est GFR (MDRD) Non-Af 57 (>60) L 04/05/18 05:27 Glucose 164 mg/dL (65-99) H 04/05/18 05:27 POC Glucose (mg/dL) 155 mg/dL (65-99) H 04/05/18 05:10 Hemoglobin A1c 11.8 % 04/04/18 04:20 Calcium 9.4 mg/dL (8.5-10.1) 04/05/18 05:27 Corrected Calcium 10.7 mg/dL (8.5-10.1) H 04/05/18 05:27 Magnesium 1.8 mg/dL (1.7-2.9) 04/05/18 05:27 Iron 31 ug/dL (50-175) L 04/05/18 05:27 Transferrin 226 mg/dL (202-364) 04/05/18 05:27 Ferritin 41 ng/mL (8-252) 04/05/18 05:27 Total Bilirubin 0.20 mg/dL (0.2-1.0) 04/05/18 05:27 AST 12 Units/L (15-37) L 04/05/18 05:27 ALT 22 Units/L (12-78) 04/05/18 05:27 Alkaline Phosphatase 152 Units/L (46-116) H 04/05/18 05:27 Creatine Kinase 37 Units/L (26-192) 04/04/18 20:24 CK-MB (CK-2) < 1.0 ng/mL (0-4.0) 04/04/18 20:24 CK/CKMB % Calc 2.7 % (<4) 04/04/18 20:24 Troponin I 0.08 ng/mL (0-1.5) 04/04/18 20:24 Total Protein 5.7 g/dL (6.4-8.2) L 04/05/18 05:27 Albumin 2.4 g/dL (3.4-5.0) L 04/05/18 05:27 Globulin 3.3 g/dL (2.5-4.5) 04/05/18 05:27 Albumin/Globulin Ratio 0.7 Ratio (1.1-2.1) L 04/05/18 05:27 Vitamin B12 269 pg/mL (193-986) 04/05/18 05:27 Folate 3.5 ng/mL (>8.6) L 04/05/18 05:27 Specimen Type Catherized urine 04/03/18 21:34 Urine Color Yellow (YELLOW) 04/03/18 21:34 Urine Appearance Clear (CLEAR) 04/03/18 21:34 Urine pH 5.0 (5.0 - 8.0) 04/03/18 21:34 Ur Specific [place] 1.015 (1.000-1.030) 04/03/18 21:34 Urine Protein 4+ (NEGATIVE) 04/03/18 21:34 Urine Glucose (UA) 2+ (NEGATIVE) 04/03/18 21:34 Urine Ketones 1+ (NEGATIVE) 04/03/18 21:34 Urine Occult Blood 2+ (NEGATIVE) 04/03/18 21:34 Urine Nitrite Negative (NEGATIVE) 04/03/18 21:34 Urine Bilirubin Negative (NEGATIVE) 04/03/18 21:34 Urine Urobilinogen Normal (NORMAL) 04/03/18 21:34 Ur Leukocyte Esterase 1+ (NEGATIVE) 04/03/18 21:34 Urine RBC 5-10 /HPF (NONE SEEN) 04/03/18 21:34 Urine WBC 5-10 /HPF (NONE SEEN) 04/03/18 21:34 Ur Squamous Epith Cells Few /HPF (NEGATIVE) 04/03/18 21:34 Ur Renal Epithelial Cell Rare /HPF (NEGATIVE) 04/03/18 21:34 Urine Bacteria 2+ /HPF (NEGATIVE) 04/03/18 21:34 Ur Culture Indicated? Yes/culture set up 04/03/18 21:34 Urine Opiates Screen Negative (NEG=<300) 04/04/18 11:03 Urine Methadone Screen Negative (NEG=<300) 04/04/18 11:03 Ur Barbiturates Screen Negative (NEG=<200) 04/04/18 11:03 Phenytoin 3.8 ug/mL (10-20) L 04/05/18 05:27 Ur Phencyclidine Scrn Negative (NEG=<25) 04/04/18 11:03 Ur Amphetamines Screen Negative (NEG=<1000) 04/04/18 11:03 U Benzodiazepines Scrn Negative (NEG=<200) 04/04/18 11:03 Urine Cocaine Screen Negative (NEG=<300) 04/04/18 11:03 U Marijuana (THC) Screen Negative (NEG=<50) 04/04/18 11:03 - Plan (1) Seizure disorder Status: Acute Plan: CONTINUE DILANTIN, SEIZURE PRECAUTIONS. AM CXR AND ABG, BP AND GLUCOSE CONTROL. GENTLE IV HYDRATION WITH STRICT I& OS. CARY CATH CARE, RESP THERAPY (2) Generalized weakness Status: Acute (3) CAD (coronary artery disease) Status: Chronic (4) Diabetes mellitus, type II Status: Chronic (5) HTN (hypertension) Status: Chronic (6) Hyperlipidemia Status: Chronic (7) Hypoxemic respiratory failure, chronic Status: Acute (8) COPD (chronic obstructive pulmonary disease) Status: Acute
--- NOTE | 2018-04-05 12:41 | RAD ---
HISTORY: Seizure disorder. History of congestive heart failure. Study: AP portable chest Comparison: 04/03/2018 Findings: The lung markings are less prominent on the current examination suggesting partial resolution of the pulmonary vascular congestion. There is mild atelectatic change/infiltrate the left lung base. Twvy-mg-tiiawacq cardiomegaly is noted. The patient is status post median sternotomy. IMPRESSION: 1. Babd-ae-mraphtej cardiomegaly with partial resolution of the findings of pulmonary vascular congestion. 2. Mild left lower lobe atelectatic change/infiltrate in the left lung base, slightly increased. Reported By:
[2018-04-05] MEDS ORDERED: CEREBYX INJ IVP NR (12:46)
[2018-04-05] MEDS ORDERED: ELIQUIS PO SCH (13:00)
[2018-04-05] MEDS ORDERED: COREG TAB 25 MG PO SCH (13:00)
[2018-04-05] MEDS ORDERED: SYNTHROID 25 mcg TAB PO SCH (13:00)
[2018-04-05] MEDS ORDERED: CEREBYX INJ ONE (13:08)
[2018-04-05] MEDS ORDERED: NS 50 ML IV 50 ML IV ONE (13:22)
[2018-04-05 14:44] VITALS: BP 136/66
[2018-04-05] MEDS ORDERED: DILANTIN CAP 100 MG EXT REL PO SCH (21:00)
[2018-04-06] MEDS ORDERED: LASIX PO SCH (09:00)
[2018-04-06] MEDS ORDERED: COZAAR PO SCH (09:00)
== END 2018-04-05 16:20 | disposition home health service (06) | DRG 101 ==
LOC: ICU 20:58 → ER 20:58 → OBSVTOIN 23:21 → ICU 04-04 00:20
PROVIDERS: ADMIT Internal Medicine; ATTEND Internal Medicine
DX: J44.1 Chronic obstructive pulmonary disease with (acute) exacerbation; Z87.01 Personal history of pneumonia (recurrent); G40.409 Other generalized epilepsy and epileptic syndromes, not intractable, without status epilepticus; Z79.4 Long term (current) use of insulin; J96.11 Chronic respiratory failure with hypoxia; I69.398 Other sequelae of cerebral infarction; R26.89 Other abnormalities of gait and mobility; E83.42 Hypomagnesemia; E11.65 Type 2 diabetes mellitus with hyperglycemia; I11.0 Hypertensive heart disease with heart failure; F41.8 Other specified anxiety disorders; N39.0 Urinary tract infection, site not specified; I50.9 Heart failure, unspecified; I25.10 Atherosclerotic heart disease of native coronary artery without angina pectoris
CPT/HCPCS: 36415; 36600; 51701; 51702; 70450; 71010; 71045; 80053; 80185; 80307; 81001; 82550; 82553; 82607; 82728; 82746; 82803; 82947; 83036; 83540; 83735; 84132; 84466; 84484; 85025; 87040; 87086; 94640; 94660; 94760; 96365; 96374; 96375; 97162; 97166; 97530; 99284; A4222; A4618; A7030; S0078; G0434; J0744; J1815; J1940; J3360; J3475; J3490; J7050; J8499

== ENCOUNTER 2018-10-02 10:51 | Observation (INO) ==
[2018-10-02] MEDS ORDERED: NITROSTAT SL PRN ×3 (11:06→15:02)
[2018-10-02 11:07] VITALS: BMI 31.0
[2018-10-02] MEDS ORDERED: ASPIRIN ONE (11:15)
[2018-10-02] MEDS ORDERED: NITROSTAT ONE (11:15)
--- NOTE | 2018-10-02 11:29 | DR.CP ---
HPI Time Seen Time Seen by Provider: 10/02/18 11:05 PCP Primary Care Physician: MONICA Complaint Chief Complaint Doctor Comments: A63 y/o female pt. with hx. of CAD, s/p Coronary Angioplasty to her RCA on 09/26/18 , presenting here with c/o central c/p onset this morning after she left the finance clerk office here in town. She is s/p CABG remotely. She describes this c/p as tightness/squeezing in nature. She had partial relief with 1 s/l NTG. The pain is non-radiating, she had no SOB, diaphoresis or nausea/vomiting. Chief Complaint:: PT. WAS AT DR. 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 PT. WAS SENT TO THE ER FOR EVALUATION. PT. JUST HAD 2 HEART STENTS ON SUNDAY AT [facility]. PT. WAS GIVEN ONE SUBLINGUAL NITROGLYCERIN ROCKET MOTOR TESTER, MINIMAL RELIEF. Reviewed Nurses Notes Review: Yes Source History Provided: Patient and Family Member Mode of Arrival Mode of Arrival: Wheelchair Timing Onset of Chief Complaint: 10/02/18 Pain: Present Now Duration Duration: Constant How lon Duration: Minutes Location Location of Chest Pain: Chest Chest Pain Radiation Location: None Context Onset: At rest Cardiac Risk Factors: HTN and Other (CAD) PE Risk Factors: None History of: Angioplasty and Cardiomyopathy Prehospital Care: SL Nitro Quality Quality: Squeezing and Heavy Modifying Factors Worsens: Nothing Impoves: Nothing Associated Signs and Symptoms Associated Signs and Symptoms: None PMH PMH Past Medical History: Yes Past Medical History: Anxiety, Arthritis, CHF, COPD, Coronary Artery Disease, CVA, Depression, Diabetes, Hypertension, Hypothyroidism, HI and Seizures Past Surgical History: Yes Surgical History: Angioplasty/Stents, CABG/Valve Surgery and Hysterectomy Family History History of Family Medical Conditions: Yes Family Medical History: Diabetes Mellitus, Cancer and Heart Failure Social History Does patient currently use any type of tobacco product: No Have you used tobacco products in the last 12 months: No Type of Tobacco Use: None Does any household member use tobacco: No Alcohol Use: None Do you use any recreational Drugs:: No Lives With: Spouse Lives Where: Home infectious screening In the last 2 months have you had wt loss of >10#?: NO Have you had fever, night sweats or hemotysis?: No Have you traveled outside the country in the last 6 months?: No Isolation: Standard ROS Review of Systems Constitutional: No Symptoms Reported Eyes: No Symptoms Reported ENTM: No Symptoms Reported Respiratoy: No Symptoms Reported Cardiovascular: Chest Pain Gastrointestinal/Abdominal: No Symptoms Reported Genitourinary: No Symptoms Reported Neurological: No Symptoms Reported Musculoskeletal: No Symptoms Reported Integumentary: No Symptoms Reported Hematologic/Lymphatic: No Symptoms Reported Endocrine: No Symptoms Reported Psychiatric: No Symptoms Reported PE Vitals Vitals: Temperature 97.8 F Pulse Rate [Apical] 62 Pulse Rate 69 Respiratory Rate 18 Blood Pressure [Right Arm] 133/63 Blood Pressure [Left Arm] 145/76 Blood Pressure [Standing] 130/61 Blood Pressure [Sitting] 123/68 Blood Pressure [Lying] 142/79 Blood Pressure 117/63 O2 Sat by Pulse Oximetry 97 General Limitations: No Limitations General Appearance: Alert and In No Apparent Distress Head Head Exam: Normal Inspection, Atraumatic and Normocephalic Eyes Eye exam: Normal Appearance and EOMI ENT ENT Exam: Normal Exam, Normal Oropharynx and Mucous Membranes Moist Chest Chest Inspection: Normal Inspection and Symmetric Chest Wall Rise Respiratory Respiratory Exam: Normal Lung Sounds Bilat Cardiovascular Cardiovascular Exam: Regular Rate, Normal Rhythm, Normal Heart Sounds, +S1 and +S2 Abdominal Exam Abdominal Exam: Normal Inspection, Normal Bowel Sounds and Soft Extremities Extremities Exam: Normal Inspection and Full ROM Back Back Exam: Normal Inspection and Full ROM Neurologic Neurological Exam: Alert, Oriented X3 and Normal Gait Psychiatric Psychiatric Exam: Normal Affect and Normal Mood Skin Skin Exam: Dry and Normal Color MDM Differential Diagnosis Differential Diagnosis: Angina, CHF, Esophageal Reflux/Spasm, Myocardial Infarction and Pneumonia COURSE Reevaluation 1st: Improved 2nd: Improved 3rd: Unchanged Consultation Consultation Comments: I had spoken with her finance clerk Dr. Kc as he sent her to the ED. He is well aware of her hx. of course. The recommendation is that if there is no acute EKGs changes and her troponins is normal, she may be released home to continue outpt. cardiology f/u as had been scheduled. I later spoke with the On-Call Hospitalist, Dr. Fernández about the presentation and findings. Dr. Fernández agrees with care plan. Education/Counseling Education/Counseling: Patient, Family and Counseling Educated On: Treatment, Diagnosis, Prognosis and Needs for Follow Up ROR Labs Reviewed Laboratory Results Reviewed?: Yes Result Diagrams: 10/02/18 11:25 10/02/18 11:25 Laboratory: WBC 9.3 X10^3/uL (3.6-10.0) 10/02/18 11:25 RBC 3.85 X10^6/uL (3.5-5.4) 10/02/18 11:25 Hgb 11.6 g/dL (12.0-16.0) L 10/02/18 11:25 Hct 34.2 % (36.0-47.0) L 10/02/18 11:25 MCV 88.7 fL (80.0-100.0) 10/02/18 11:25 MCH 30.2 pg (27.0-34.0) 10/02/18 11:25 MCHC 34.0 g/dL (33.0-35.0) 10/02/18 11:25 RDW 15.4 % (11.6-16.5) 10/02/18 11:25 Plt Count 417 X10^3/uL (150.0-450.0) 10/02/18 11:25 MPV 7.8 fL (7.4-11.0) 10/02/18 11:25 Neut % (Auto) 70.0 % (42.0-75.0) 10/02/18 11:25 Lymph % (Auto) 20.5 % (21.0-51.0) L 10/02/18 11:25 Ray % (Auto) 4.8 % (0.0-13.0) 10/02/18 11:25 Eos % (Auto) 3.4 % (0.9-2.9) H 10/02/18 11:25 Baso % (Auto) 1.3 % (0.2-1.0) H 10/02/18 11:25 Neut # (Auto) 6.5 x10^3/uL (2.2-4.8) H 10/02/18 11:25 Lymph # (Auto) 1.9 X10^3/uL (1.3-2.9) 10/02/18 11:25 Ray # (Auto) 0.4 x10^3/uL (0.3-0.8) 10/02/18 11:25 Eos # (Auto) 0.3 x10^3/uL (0.0-0.2) H 10/02/18 11:25 Baso # (Auto) 0.1 X10^3/uL (0.0-0.1) 10/02/18 11:25 Absolute Nucleated RBC 0.0 /100WBC 10/02/18 11:25 PT 15.5 SECONDS (11.8-14.3) 10/02/18 11:25 INR Target Range - 10/02/18 11:25 INR 1.28 (0.8-1.3) 10/02/18 11:25 APTT 27.2 SECONDS (22.9-36.5) 10/02/18 11:25 PTT Comment - 10/02/18 11:25 D-Dimer 947 ng/mL (0-400) H* 10/02/18 11:25 Sodium 136 mmol/L (136-145) 10/02/18 11:25 Corrected Sodium 139 mmol/L (136-145) 10/02/18 11:25 Potassium 4.7 mmol/L (3.5-5.1) 10/02/18 11:25 Chloride 100 mmol/L (98-107) 10/02/18 11:25 Carbon Dioxide 29.1 mmol/L (21-32) 10/02/18 11:25 BUN 48 mg/dL (7-18) H 10/02/18 11:25 Creatinine 1.50 mg/dL (0.55-1.02) H 10/02/18 11:25 Est GFR (MDRD) Af Amer 45 (>60) L 10/02/18 11:25 Est GFR (MDRD) Non-Af 38 (>60) L 10/02/18 11:25 Glucose 216 mg/dL (65-99) H 10/02/18 11:25 Calcium 10.8 mg/dL (8.5-10.1) H 10/02/18 11:25 Corrected Calcium 11.5 mg/dL (8.5-10.1) H 10/02/18 11:25 Magnesium 1.8 mg/dL (1.7-2.9) 10/02/18 11:25 Total Bilirubin 0.20 mg/dL (0.2-1.0) 10/02/18 11:25 AST 16 Units/L (15-37) 10/02/18 11:25 ALT 15 Units/L (12-78) 10/02/18 11:25 Alkaline Phosphatase 131 Units/L (46-116) H 10/02/18 11:25 Creatine Kinase 43 Units/L (26-192) 10/02/18 11:25 CK-MB (CK-2) < 1.0 ng/mL (0-4.0) 10/02/18 11:25 CK/CKMB % Calc 2.3 % (<4) 10/02/18 11:25 Troponin I < 0.02 ng/mL (0-1.5) 10/02/18 11:25 Total Protein 7.5 g/dL (6.4-8.2) 10/02/18 11:25 Albumin 3.1 g/dL (3.4-5.0) L 10/02/18 11:25 Globulin 4.4 g/dL (2.5-4.5) 10/02/18 11:25 Albumin/Globulin Ratio 0.7 Ratio (1.1-2.1) L 10/02/18 11:25 XRAY XRAY Interpreted by: Self XRAY Findings: sternostomy wires noted. cardiomegaly is present. no gross infiltrates note EKG Compared to prior EKG Dated: 10/18/17 Rate: 61 [place]: Normal Rhythm: NSR Block: LBBB Hypertrophy: None ST: Old, Ant and Lat Opioid Opioid Risk Tool Age (Taye box if 16-45): No History of Preadolescent Sexual Abuse: No Total: 0 Total Score Risk Category: Low Risk Copyright: [facility] predicting aberrant behaviors Diagnosis Discharge Problem: D-dimer, elevated, Hyperlipidemia, mixed Chest pain Qualifiers: Chest pain type: precordial pain Qualified Code(s): R07.2 - Precordial pain COPD (chronic obstructive pulmonary disease) Qualifiers: COPD type: chronic bronchitis Chronic bronchitis type: simple Qualified Code(s): J41.0 - Simple chronic bronchitis CAD (coronary artery disease) Qualifiers: Coronary Disease-Associated Artery/Lesion type: [place] artery [place] vs. transplanted heart: [place] heart Associated angina: with stable angina Qualified Code(s): I25.118 - Atherosclerotic heart disease of [place] coronary artery with other forms of angina pectoris Instructions Forms: Excuse From Work
[2018-10-02 11:36] LABS: BASOPHILS # (AUTO) 0.1 X10^3/uL (0.0-0.1); BASOPHILS % (AUTO) 1.3 % (0.2-1.0); EOSINOPHILS # (AUTO) 0.3 x10^3/uL (0.0-0.2); EOSINOPHILS % (AUTO) 3.4 % (0.9-2.9); HEMATOCRIT 34.2 % (36.0-47.0); HEMOGLOBIN 11.6 g/dL (12.0-16.0); LYMPHOCYTES # (AUTO) 1.9 X10^3/uL (1.3-2.9); LYMPHOCYTES % (AUTO) 20.5 % (21.0-51.0); MEAN CORPUSCULAR HEMOGLOBIN 30.2 pg (27.0-34.0); MEAN CORPUSCULAR VOLUME 88.7 fL (80.0-100.0); MEAN PLATELET VOLUME 7.8 fL (7.4-11.0); MONOCYTES # (AUTO) 0.4 x10^3/uL (0.3-0.8); MONOCYTES % (AUTO) 4.8 % (0.0-13.0); NEUTROPHILS # (AUTO) 6.5 x10^3/uL (2.2-4.8); PLATELET COUNT 417 X10^3/uL (150.0-450.0); RED BLOOD COUNT 3.85 X10^6/uL (3.5-5.4); RED CELL DISTRIBUTION WIDTH 15.4 % (11.6-16.5); WHITE BLOOD COUNT 9.3 X10^3/uL (3.6-10.0)
--- NOTE | 2018-10-02 11:37 | RAD ---
HISTORY: Chest pain. Stents done 1 week ago. Prior history CHF, COPD, coronary artery disease, CVA, diabetes, hypertension and myocardial infarction. Prior surgical history of CABG and stents. Study: Single-view chest, done portably Comparison: 04/05/2018. Findings: There are again changes CABG with median sternotomy sutures metallic markers and sutures indicating coronary artery bypass grafts. The trachea is midline. There is cardiomegaly with atherosclerotic calcification uncoiling of the aortic arch. No CHF is seen. The lungs and pleural spaces are clear. No infiltrate, pleural fluid or pneumothorax is identified. Osseous structures are intact. IMPRESSION: Cardiomegaly with changes of CABG. Clear lungs and pleural spaces. Reported By:
[2018-10-02 11:52] LABS: BLOOD UREA NITROGEN 48 mg/dL (7-18); CALCIUM 10.8 mg/dL (8.5-10.1); CARBON DIOXIDE 29.1 mmol/L (21-32); CHLORIDE 100 mmol/L (98-107); COR NA(FOR HYPERGLY) 139 mmol/L (136-145); SODIUM 136 mmol/L (136-145); TROPONIN I < 0.02 ng/mL (0-1.5); eGFR NON BLACK RACES 38 (>60)
[2018-10-02 11:56] LABS: ALANINE AMINOTRANSFERASE 15 Units/L (12-78); ALBUMIN 3.1 g/dL (3.4-5.0); ALKALINE PHOSPHATASE 131 Units/L (46-116); ASPARTATE AMINO TRANSFERASE 16 Units/L (15-37); CKMB % 2.3 % (<4); COR CA(FOR HYPOALB) 11.5 mg/dL (8.5-10.1); CREATINE KINASE 43 Units/L (26-192); CREATINE KINASE MB < 1.0 ng/mL (0-4.0); MAGNESIUM 1.8 mg/dL (1.7-2.9); TOTAL PROTEIN 7.5 g/dL (6.4-8.2)
--- NOTE | 2018-10-02 13:46 | VAS ---
HISTORY: Bilateral lower extremity pain, chest pain Study: Bilateral lower extremity venous Doppler evaluation Comparison: None Technique: Multiple grayscale sonographic images were obtained. Color duplex Doppler evaluation was performed. Findings: The common femoral vein, superficial femoral veins, and popliteal veins demonstrate normal flow, compression, and augmentation bilaterally. The examination is negative for deep venous thrombosis in both lower extremities. IMPRESSION: Exam negative for deep venous thrombosis bilaterally Reported By:
[2018-10-02 14:11] LABS: ABG BASE EXCESS 6.4 mmol/L (-2.0-2.0)
[2018-10-02 14:12] LABS: ABG ALLEN TEST POS; ABG HCO3 31.3 mmol/L (22-26)
[2018-10-02] MEDS ORDERED: XANAX PO PRN (15:02)
[2018-10-02] MEDS ORDERED: HumuLIN R SUBCUT SCH (15:02)
[2018-10-02] MEDS ORDERED: PEPCID TAB 20 MG PO SCH (15:02)
[2018-10-02 15:45] LABS: CKMB % 2.4 % (<4); CREATINE KINASE 41 Units/L (26-192); CREATINE KINASE MB < 1.0 ng/mL (0-4.0); TROPONIN I < 0.02 ng/mL (0-1.5)
[2018-10-02] MEDS: ALDACTONE TAB 25 MG PO SCH (16:50)
[2018-10-02] MEDS: HumuLIN R SUBCUT PRN ×2 (17:08→21:39)
[2018-10-02] MEDS ORDERED: SNACK - Diabetic Appropriate PO SCH (20:00)
[2018-10-02] MEDS: SNACK - Diabetic Appropriate PO SCH (20:38)
[2018-10-02] MEDS ORDERED: BRILINTA PO SCH (21:00)
[2018-10-02 21:12] LABS: CKMB % 2.5 % (<4); CREATINE KINASE 40 Units/L (26-192); CREATINE KINASE MB < 1.0 ng/mL (0-4.0); TROPONIN I < 0.02 ng/mL (0-1.5)
[2018-10-02] MEDS: PEPCID TAB 20 MG PO SCH (21:38)
[2018-10-02] MEDS: ENTRESTO 24/26 MG TAB PO SCH (21:39)
[2018-10-02] MEDS: ELIQUIS PO SCH (21:39)
[2018-10-02] MEDS: BUSPAR PO SCH (21:39)
[2018-10-02] MEDS: ZOLOFT PO SCH (21:39)
[2018-10-02] MEDS: LANTUS SC SCH (21:39)
[2018-10-02] MEDS: LIPITOR TAB 40 MG PO SCH (21:40)
[2018-10-02] MEDS: COREG TAB 6.25 MG PO SCH (21:40)
[2018-10-03 06:38] LABS: BASOPHILS # (AUTO) 0.1 X10^3/uL (0.0-0.1); BASOPHILS % (AUTO) 0.8 % (0.2-1.0); EOSINOPHILS # (AUTO) 0.3 x10^3/uL (0.0-0.2); EOSINOPHILS % (AUTO) 3.2 % (0.9-2.9); HEMATOCRIT 34.4 % (36.0-47.0); HEMOGLOBIN 11.8 g/dL (12.0-16.0); LYMPHOCYTES # (AUTO) 2.6 X10^3/uL (1.3-2.9); LYMPHOCYTES % (AUTO) 23.9 % (21.0-51.0); MEAN CORPUSCULAR HEMOGLOBIN 30.4 pg (27.0-34.0); MEAN CORPUSCULAR HGB CONC 34.4 g/dL (33.0-35.0); MEAN CORPUSCULAR VOLUME 88.5 fL (80.0-100.0); MEAN PLATELET VOLUME 7.8 fL (7.4-11.0); MONOCYTES # (AUTO) 0.7 x10^3/uL (0.3-0.8); MONOCYTES % (AUTO) 6.6 % (0.0-13.0); NEUTROPHILS % (AUTO) 65.5 % (42.0-75.0); PLATELET COUNT 369 X10^3/uL (150.0-450.0); RED BLOOD COUNT 3.89 X10^6/uL (3.5-5.4); RED CELL DISTRIBUTION WIDTH 15.5 % (11.6-16.5); WHITE BLOOD COUNT 10.8 X10^3/uL (3.6-10.0)
[2018-10-03 07:10] LABS: ALANINE AMINOTRANSFERASE 11 Units/L (12-78); ALBUMIN 2.9 g/dL (3.4-5.0); ALKALINE PHOSPHATASE 126 Units/L (46-116); ASPARTATE AMINO TRANSFERASE 16 Units/L (15-37); BLOOD UREA NITROGEN 52 mg/dL (7-18); CALCIUM 10.6 mg/dL (8.5-10.1); CARBON DIOXIDE 24.1 mmol/L (21-32); CHLORIDE 101 mmol/L (98-107); CHOL/HDL RATIO 2.9 (0.0-5.0); CHOLESTEROL 212 mg/dL (0-200); CKMB % 2.3 % (<4); COR CA(FOR HYPOALB) 11.5 mg/dL (8.5-10.1); COR NA(FOR HYPERGLY) 136 mmol/L (136-145); CREATINE KINASE 43 Units/L (26-192); CREATINE KINASE MB < 1.0 ng/mL (0-4.0); CREATININE 1.54 mg/dL (0.55-1.02); HDL CHOLESTEROL 74 mg/dL (40-60); SODIUM 135 mmol/L (136-145); TOTAL PROTEIN 7.2 g/dL (6.4-8.2); TRIGLYCERIDES 215 mg/dL (0-150); TROPONIN I < 0.02 ng/mL (0-1.5); eGFR NON BLACK RACES 36 (>60)
--- NOTE | 2018-10-03 08:13 | NM ---
HISTORY: Chest pain, elevated D-dimer Study: Ventilation-perfusion lung scan Comparison: None Technique: Ventilation scan was carried out using inhalation of 30.3 mCi technetium 99 M DTPA aerosol. Perfusion scan was carried out using intravenous injection of 5.5 mCi technetium 99 MAA. Findings: Ventilation scan demonstrated symmetric ventilation without significant ventilation defects. Perfusion scan demonstrated symmetric perfusion without significant perfusion defects. The probability of acute pulmonary thromboembolic disease is felt to be low. IMPRESSION: Low probability acute pulmonary thromboembolic disease Reported By:
[2018-10-03] MEDS: COREG TAB 6.25 MG PO SCH ×2 (08:27→22:03)
[2018-10-03] MEDS: ALDACTONE TAB 25 MG PO SCH (08:27)
[2018-10-03] MEDS: SYNTHROID 25 mcg TAB PO SCH (08:27)
[2018-10-03] MEDS: ENTRESTO 24/26 MG TAB PO SCH ×2 (08:27→22:04)
[2018-10-03] MEDS: ELIQUIS PO SCH ×2 (08:28→22:03)
[2018-10-03] MEDS: PEPCID TAB 20 MG PO SCH ×2 (08:28→22:05)
[2018-10-03] MEDS: BUSPAR PO SCH ×2 (08:28→22:03)
[2018-10-03] MEDS: K-DUR TAB 20 MEQ PO SCH (08:28)
[2018-10-03] MEDS: LASIX PO SCH (08:29)
--- NOTE | 2018-10-03 08:36 | DR.H&P ---
H&P - History & Physical for Day of: H&P Date: 10/02/18 - Chief Complaint Chief Complaint: CHEST PAIN, SOB - History of Present Illness History of Present Illness: PT IS 63 WF ER ADMISSION AFTER PRESENTING WITH CO SHE WAS AT DR. MARTINEZ'S OFFICE EQUITY MANAGER WHERE SHE BEGAN HAVING CHEST PAIN. PT. WAS SENT TO THE ER FOR EVALUATION. PT. JUST HAD 2 HEART STENTS ON SUNDAY AT [facility]. PT. WAS GIVEN ONE SUBLINGUAL NITROGLYCERIN EQUITY MANAGER, MINIMAL RELIEF. PT HAS PMH OF CABG, CAD, HTN, CVA, DM, COPD. PT ADMITTED FOR SERIAL CE AND EKGS R/O AMI. - Past Medical History Past Medical History: AR, Coronary Artery Disease, Hypertension, Diabetes, Depression, Anxiety, Hypothyroidism, CVA, Seizures, COPD, Arthritis, CHF - Past Surgical History Surgical History: Angioplasty/Stents, CABG/Valve Surgery, Hysterectomy, Other - Family History Family Medical History: Diabetes Mellitus, Cancer, AR, Hypertension - Social History Does patient currently use any type of tobacco product: No Have you used tobacco products in the last 12 months: No Type of Tobacco Use: Cigarettes How many years tobacco product used: 45 Does any household member use tobacco: No Alcohol Use: None Drug Use: Prescription Drugs - Medications Home Medications: Sulfa (Sulfonamide Antibiotics) [SULFA] Allergy (Verified 12/14/16 13:55) ciprofloxacin [From Cipro] Adverse Reaction (Verified 04/04/18 11:29) CONTINUE taking the following medications alprazolam 0.25 mg PO DAILY PRN 10/02/18 [History] amiodarone 200 mg PO HS 10/02/18 [History] buspirone 5 mg PO BID 10/02/18 [History] carvedilol 6.25 mg PO BID 10/02/18 [History] clopidogrel 75 mg PO DAILY 10/02/18 [History] insulin glargine [Lantus U-100 Insulin] 24 unit SUBCUT HS 10/02/18 [History] nitroglycerin 0.4 mg SUBLINGUAL PRN PRN 10/02/18 [History] potassium chloride 20 meq PO DAILY 10/02/18 [History] sacubitril-valsartan [Entresto] 1 tab PO BID 10/02/18 [History] - Review of Systems Constitutional: Weakness Eyes: No Symptoms Reported ENT: No Symptoms Reported Respiratory: Shortness of Breath Cardiovascular: Chest Pain, Edema Gastrointestinal: No Symptoms Reported Genitourinary: No Symptoms Reported Musculoskeletal: No Symptoms Reported Skin: No Symptoms Reported Neurological: Confusion (MILD, HX OF CVA) - Physical Exam Vital Signs: Temperature 98.2 F Pulse Rate [Left Brachial] 59 Pulse Rate [Apical] 59 Pulse Rate 69 Respiratory Rate 18 Blood Pressure [Right Arm] 133/63 Blood Pressure [Left Arm] 112/56 Blood Pressure [Standing] 130/61 Blood Pressure [Sitting] 123/68 Blood Pressure [Lying] 142/79 Blood Pressure 117/63 O2 Sat by Pulse Oximetry 98 Oriented: Time, Person, Place Eyes: Normal Ear: Normal Nose: Normal Throat: Normal Respiratory: RLL Diminished, LLL Diminished Cardiovascular: Normal, Edema : Normal Auscultation: Bowel Sounds: Normal Palpation: Normal Tenderness: Normal Skin: Normal Musculoskeletal: Back:Lumbar Psychiatric: Anxiety Affect: Anxious Speech Pattern: Clear - Assessment/Plan (1) Chest pain Status: Acute Plan: Admit, SERIAL CE AND EKG. VQ SCAN R/O PE. CONTINUOUS SUPPLEMENTAL O2, VERIFY AND RESUME HOME MEDICATION. TELEMETRY, ADMISSION LABS IN ER, CBC CMP UA. CXR IN ER (2) COPD (chronic obstructive pulmonary disease) Status: Acute (3) D-dimer, elevated Status: Acute (4) Hyperlipidemia, mixed Status: Acute (5) Diabetes mellitus, type II Status: Chronic (6) HTN (hypertension) Status: Chronic (7) Seizure disorder as sequela of cerebrovascular accident Status: Acute - Allergies Allergies/Adverse Reactions: Allergies Allergy/AdvReac Type Severity Reaction Status Date / Time Sulfa (Sulfonamide Allergy Verified 12/14/16 13:55 Antibiotics) [SULFA] ciprofloxacin [From Cipro] AdvReac Verified 04/04/18 11:29
--- NOTE | 2018-10-03 08:40 | PCM.PROG ---
Progress Note - Progress Note for Day of Date of Exam: 10/03/18 - Subjective Subjective: 63 WF ER ADMISSION YESTERDAY WITH CO CHEST PAIN. PTHAS PMH OF CAD AND COPD. PT DENIES CP THIS AM BUT CO SHORTNESS OF BREATH. VENOUS DOPPLER NEGATIVE FOR DVT, VQ SCAN PENDING. PLAN TO OBTAIN REPEAT CE AND EKG, BP AND LIPID CONTROL, BS CONTROL. RESP CONSULT FOR BREATHING TREATMENTS AND SPUTUM C ULTURE, WILL START ON IV ROCEPHIN FOR COPD EXACERBATION. - Past Medical Family Social History Past Med/Fam/Surg Hx: No changes since H&P Allergies: Allergies Sulfa (Sulfonamide Antibiotics) [SULFA] Allergy (Verified 12/14/16 13:55) ciprofloxacin [From Cipro] Adverse Reaction (Verified 04/04/18 11:29) - Review of Systems ROS: No change since H&P - Vital Signs and I&O's Vital Signs: Temperature 98.2 F Pulse Rate [Left Brachial] 59 Pulse Rate [Apical] 59 Pulse Rate 69 Respiratory Rate 18 Blood Pressure [Right Arm] 133/63 Blood Pressure [Left Arm] 112/56 Blood Pressure [Standing] 130/61 Blood Pressure [Sitting] 123/68 Blood Pressure [Lying] 142/79 Blood Pressure 117/63 O2 Sat by Pulse Oximetry 98 Intake and Output: Intake & Output 09/30/18 10/01/18 10/02/18 10/03/18 11:59 11:59 11:59 11:59 Intake Total 490 / 490 Balance 490 / 490 - Physical Exam Oriented: Time, Person, Place Eyes: Normal Ear: Normal Nose: Normal Throat: Normal Respiratory: Diminished, Rhonchi Cardiovascular: Normal, Edema : Normal Auscultation: Bowel Sounds: Normal Tenderness: Normal Skin: Normal Musculoskeletal: Back:Lumbar Psychiatric: Anxiety Affect: Anxious Speech Pattern: Clear - Laboratory and Diagnostics Result Diagrams: 10/03/18 05:53 10/03/18 05:53 Labs: Laboratory WBC 10.8 X10^3/uL (3.6-10.0) H 10/03/18 05:53 RBC 3.89 X10^6/uL (3.5-5.4) 10/03/18 05:53 Hgb 11.8 g/dL (12.0-16.0) L 10/03/18 05:53 Hct 34.4 % (36.0-47.0) L 10/03/18 05:53 MCV 88.5 fL (80.0-100.0) 10/03/18 05:53 MCH 30.4 pg (27.0-34.0) 10/03/18 05:53 MCHC 34.4 g/dL (33.0-35.0) 10/03/18 05:53 RDW 15.5 % (11.6-16.5) 10/03/18 05:53 Plt Count 369 X10^3/uL (150.0-450.0) 10/03/18 05:53 MPV 7.8 fL (7.4-11.0) 10/03/18 05:53 Neut % (Auto) 65.5 % (42.0-75.0) 10/03/18 05:53 Lymph % (Auto) 23.9 % (21.0-51.0) 10/03/18 05:53 [place] % (Auto) 6.6 % (0.0-13.0) 10/03/18 05:53 Eos % (Auto) 3.2 % (0.9-2.9) H 10/03/18 05:53 Baso % (Auto) 0.8 % (0.2-1.0) 10/03/18 05:53 Neut # (Auto) 7.0 x10^3/uL (2.2-4.8) H 10/03/18 05:53 Lymph # (Auto) 2.6 X10^3/uL (1.3-2.9) 10/03/18 05:53 [place] # (Auto) 0.7 x10^3/uL (0.3-0.8) 10/03/18 05:53 Eos # (Auto) 0.3 x10^3/uL (0.0-0.2) H 10/03/18 05:53 Baso # (Auto) 0.1 X10^3/uL (0.0-0.1) 10/03/18 05:53 Absolute Nucleated RBC 0.0 /100WBC 10/03/18 05:53 PT 15.5 SECONDS (11.8-14.3) 10/02/18 11:25 INR Target Range - 10/02/18 11:25 INR 1.28 (0.8-1.3) 10/02/18 11:25 APTT 27.2 SECONDS (22.9-36.5) 10/02/18 11:25 PTT Comment - 10/02/18 11:25 D-Dimer 947 ng/mL (0-400) H* 10/02/18 11:25 Sample Site Rrad 10/02/18 14:04 ABG pH 7.450 (7.35-7.45) 10/02/18 14:04 ABG pCO2 45.0 mmHg (35.0-45.0) 10/02/18 14:04 ABG pO2 85.0 mmHg (80.0-100.0) 10/02/18 14:04 ABG HCO3 31.3 mmol/L (22-26) H* 10/02/18 14:04 ABG O2 Saturation 97.0 % (90-100) 10/02/18 14:04 ABG Base Excess 6.4 mmol/L (-2.0-2.0) H 10/02/18 14:04 Kevin Test Pos 10/02/18 14:04 A-a Gradient 8.0 mmHg 10/02/18 14:04 FiO2 21.0 10/02/18 14:04 Blood Gas Comments Pt shayy well elj 10/02/18 14:04 Sodium 135 mmol/L (136-145) L 10/03/18 05:53 Corrected Sodium 136 mmol/L (136-145) 10/03/18 05:53 Potassium 4.0 mmol/L (3.5-5.1) 10/03/18 05:53 Chloride 101 mmol/L (98-107) 10/03/18 05:53 Carbon Dioxide 24.1 mmol/L (21-32) 10/03/18 05:53 BUN 52 mg/dL (7-18) H 10/03/18 05:53 Creatinine 1.54 mg/dL (0.55-1.02) H 10/03/18 05:53 Est GFR (MDRD) Af Amer 44 (>60) L 10/03/18 05:53 Est GFR (MDRD) Non-Af 36 (>60) L 10/03/18 05:53 Glucose 153 mg/dL (65-99) H 10/03/18 05:53 POC Glucose (mg/dL) 155 mg/dL (65-99) H 10/03/18 05:35 Calcium 10.6 mg/dL (8.5-10.1) H 10/03/18 05:53 Corrected Calcium 11.5 mg/dL (8.5-10.1) H 10/03/18 05:53 Magnesium 1.8 mg/dL (1.7-2.9) 10/02/18 11:25 Total Bilirubin 0.20 mg/dL (0.2-1.0) 10/03/18 05:53 AST 16 Units/L (15-37) 10/03/18 05:53 ALT 11 Units/L (12-78) L 10/03/18 05:53 Alkaline Phosphatase 126 Units/L (46-116) H 10/03/18 05:53 Creatine Kinase 43 Units/L (26-192) 10/03/18 05:53 CK-MB (CK-2) < 1.0 ng/mL (0-4.0) 10/03/18 05:53 CK/CKMB % Calc 2.3 % (<4) 10/03/18 05:53 Troponin I < 0.02 ng/mL (0-1.5) 10/03/18 05:53 Total Protein 7.2 g/dL (6.4-8.2) 10/03/18 05:53 Albumin 2.9 g/dL (3.4-5.0) L 10/03/18 05:53 Globulin 4.3 g/dL (2.5-4.5) 10/03/18 05:53 Albumin/Globulin Ratio 0.7 Ratio (1.1-2.1) L 10/03/18 05:53 Triglycerides 215 mg/dL (0-150) H 10/03/18 05:53 Cholesterol 212 mg/dL (0-200) H 10/03/18 05:53 LDL Cholesterol, Calc 95 mg/dL (0-100) 10/03/18 05:53 HDL Cholesterol 74 mg/dL (40-60) H 10/03/18 05:53 Cholesterol/HDL Ratio 2.9 (0.0-5.0) 10/03/18 05:53 - Plan (1) Chest pain Status: Acute Plan: SERIAL CE AND EKG. VQ SCAN R/O PE. CONTINUOUS SUPPLEMENTAL O2, VERIFY AND RESUME HOME MEDICATION. TELEMETRY, ADMISSION LABS IN ER, CBC CMP UA. CXR IN ER, RESP CONSULTATION, IV ROCEPHIN, DUO NEBS, SPUTUM CULTURE (2) COPD (chronic obstructive pulmonary disease) Status: Acute (3) D-dimer, elevated Status: Acute (4) Hyperlipidemia, mixed Status: Acute (5) Diabetes mellitus, type II Status: Chronic (6) HTN (hypertension) Status: Chronic (7) Seizure disorder as sequela of cerebrovascular accident Status: Acute
[2018-10-03] MEDS ORDERED: PLAVIX PO NR (09:00)
[2018-10-03] MEDS ORDERED: LOVENOX INJ 40 MG SYR SC SCH (09:00)
[2018-10-03] MEDS ORDERED: ASPIRIN PO SCH ×2 (09:00)
[2018-10-03] MEDS: DUONEB 0.5 MG/3 MG NEB SCH ×4 (09:09→20:25)
[2018-10-03] MEDS: PULMICORT NEB TX 0.5 MG NEB SCH ×2 (09:09→20:25)
[2018-10-03] MEDS: ROCEPHIN VIAL 1 GRAM IVP SCH (11:13)
[2018-10-03] MEDS: ASPIRIN PO SCH (11:14)
[2018-10-03 13:50] LABS: CKMB % 1.7 % (<4); CREATINE KINASE 59 Units/L (26-192); CREATINE KINASE MB < 1.0 ng/mL (0-4.0); TROPONIN I < 0.02 ng/mL (0-1.5)
[2018-10-03] MEDS: HumuLIN R SUBCUT PRN ×3 (14:21→22:06)
[2018-10-03] MEDS: SNACK - Diabetic Appropriate PO SCH (20:15)
[2018-10-03] MEDS: LIPITOR TAB 40 MG PO SCH (22:03)
[2018-10-03] MEDS: LANTUS SC SCH (22:05)
[2018-10-03] MEDS: ZOLOFT PO SCH (22:05)
[2018-10-04] MEDS: DUONEB 0.5 MG/3 MG NEB SCH ×4 (01:02→12:04)
[2018-10-04 06:13] LABS: BASOPHILS # (AUTO) 0.1 X10^3/uL (0.0-0.1); BASOPHILS % (AUTO) 0.8 % (0.2-1.0); EOSINOPHILS # (AUTO) 0.3 x10^3/uL (0.0-0.2); EOSINOPHILS % (AUTO) 3.2 % (0.9-2.9); HEMATOCRIT 35.2 % (36.0-47.0); HEMOGLOBIN 11.7 g/dL (12.0-16.0); LYMPHOCYTES % (AUTO) 21.7 % (21.0-51.0); MEAN CORPUSCULAR HEMOGLOBIN 29.6 pg (27.0-34.0); MEAN CORPUSCULAR HGB CONC 33.4 g/dL (33.0-35.0); MEAN CORPUSCULAR VOLUME 88.7 fL (80.0-100.0); MEAN PLATELET VOLUME 7.7 fL (7.4-11.0); MONOCYTES # (AUTO) 0.7 x10^3/uL (0.3-0.8); MONOCYTES % (AUTO) 7.7 % (0.0-13.0); NEUTROPHILS # (AUTO) 6.1 x10^3/uL (2.2-4.8); NEUTROPHILS % (AUTO) 66.6 % (42.0-75.0); PLATELET COUNT 372 X10^3/uL (150.0-450.0); RED BLOOD COUNT 3.97 X10^6/uL (3.5-5.4); RED CELL DISTRIBUTION WIDTH 15.6 % (11.6-16.5); WHITE BLOOD COUNT 9.2 X10^3/uL (3.6-10.0)
[2018-10-04 06:28] LABS: CALCIUM 10.7 mg/dL (8.5-10.1); CARBON DIOXIDE 27.6 mmol/L (21-32); COR CA(FOR HYPOALB) 11.5 mg/dL (8.5-10.1); CREATININE 1.54 mg/dL (0.55-1.02); TOTAL PROTEIN 7.4 g/dL (6.4-8.2)
[2018-10-04] MEDS: COREG TAB 6.25 MG PO SCH (08:39)
[2018-10-04] MEDS: SYNTHROID 25 mcg TAB PO SCH (08:39)
[2018-10-04] MEDS: ENTRESTO 24/26 MG TAB PO SCH (08:39)
[2018-10-04] MEDS: PEPCID TAB 20 MG PO SCH (08:39)
[2018-10-04] MEDS: BUSPAR PO SCH (08:39)
[2018-10-04] MEDS: ASPIRIN PO SCH (08:39)
[2018-10-04] MEDS: ALDACTONE TAB 25 MG PO SCH (08:40)
[2018-10-04] MEDS: K-DUR TAB 20 MEQ PO SCH (08:40)
[2018-10-04] MEDS: LASIX PO SCH (08:40)
[2018-10-04] MEDS: ELIQUIS PO SCH (08:40)
[2018-10-04] MEDS: ROCEPHIN VIAL 1 GRAM IVP SCH (08:43)
[2018-10-04] MEDS ORDERED: PLAVIX PO SCH (09:00)
[2018-10-04] MEDS: PULMICORT NEB TX 0.5 MG NEB SCH (09:07)
--- NOTE | 2018-10-04 09:34 | RAD ---
HISTORY: 63-year-old female with shortness of breath. Study: Frontal view of the chest. Comparison: Chest radiograph 10/02/2018. Findings: Surgical by sys are stable. The trachea is midline. The cardiac silhouette is stably enlarged with chronic prominence interstitium and perihilar lung markings with low lung volumes. The lungs are clear without focal consolidation, effusion or pneumothorax. Soft tissues are unremarkable. Osseous structures are unremarkable. IMPRESSION: 1. Chronic cardiomegaly and findings consistent with COPD. Reported By:
[2018-10-04 09:41] LABS: CKMB % 2.1 % (<4); CREATINE KINASE 48 Units/L (26-192); CREATINE KINASE MB < 1.0 ng/mL (0-4.0); TROPONIN I < 0.02 ng/mL (0-1.5)
[2018-10-04] MEDS: HumuLIN R SUBCUT PRN (13:03)
[2018-10-04 17:30] VITALS: BP 125/66
== END 2018-10-04 16:35 | disposition home or self-care (01) ==
LOC: ER 10:51 → MED/SURG 10:51 → ER 14:35
PROVIDERS: ADMIT Internal Medicine; ATTEND Internal Medicine
DX: I25.10 Atherosclerotic heart disease of native coronary artery without angina pectoris; Z79.01 Long term (current) use of anticoagulants; R94.31 Abnormal electrocardiogram [ECG] [EKG]; K21.9 Gastro-esophageal reflux disease without esophagitis; Z95.1 Presence of aortocoronary bypass graft; E11.65 Type 2 diabetes mellitus with hyperglycemia; I10 Essential (primary) hypertension; E03.8 Other specified hypothyroidism; R26.89 Other abnormalities of gait and mobility; Z98.890 Other specified postprocedural states; R07.2 Precordial pain; J44.1 Chronic obstructive pulmonary disease with (acute) exacerbation; E78.2 Mixed hyperlipidemia; I25.118 Atherosclerotic heart disease of native coronary artery with other forms of angina pectoris; G40.802 Other epilepsy, not intractable, without status epilepticus; I69.398 Other sequelae of cerebral infarction
CPT/HCPCS: 36415; 36600; 71010; 71045; 78582; 80053; 80061; 82550; 82553; 82803; 83735; 84484; 85025; 85378; 85610; 85730; 93005; 93970; 94640; 94760; 96365; 96372; 96374; 97162; 97166; 99284; A4216; A4222; G0378; J0696; J1815; J7620; J7626

== ENCOUNTER 2019-01-23 18:55 | Observation (INO) ==
[2019-01-23 19:32] VITALS: BMI 38.0
[2019-01-23] MEDS ORDERED: NITROSTAT SL PRN ×2 (19:38→22:04)
--- NOTE | 2019-01-23 19:43 | DR.GENAD ---
HPI - PCP Primary Care Physician: MONICA - Complaint/Symptoms Chief Complaint Doctors Comments: Patient is complaining of xiphoid chest pain getting worst the past 45 minutes according to her spouse who said she has not been feeling well all day. states he gave her a nitroglycerin about 45 minutes ago but no aspirin. Patient states she is on a blood thinner but she nor her spouse know the name of the medicines. Patient states her daughter has a list of her medicines but she is not here. She had episode of SOB but denies nausea, vomiting or diarrhea. states she stopped smoking before her heart attack and she had a stroke and she cannot remember the dates. She denies alcohol or vapor use. states the pain is 10 of 10. Spouse states she just had her last stent about six months ago at [facility]. Chief Complaint:: CHEST PAIN X 45 MINS PRIOR TO ARRIVAL; NO TX BIOMASS FACILITATOR; PATIENT STATES FEELS LIKE SOMEONE IS STABBING HER WITH A NEEDLE; PAIN RATED 9/10 MID STERNAL Self Treatment fo Chief Complaint: NO TX BIOMASS FACILITATOR - Nurses notes reviewed Nurses Notes Review: Yes - Source History Provided: Patient, Significant Other - Mode of Arrival Mode of Arrival: Ambulatory - Timing Onset of Chief Complaint: 01/23/19 - Duration Duration: Constant How lon Duration: Minutes - Location Location: xiphoid chest pain - Severity Severity: Moderate - Modifying Factors Worsens:: nothing Improves:: nothing <DANIEL CALDWELL - Last Filed: 01/23/19 20:12> PMH - PMH Past Medical History: Yes Past Medical History: Coronary Artery Disease, CVA, Hypertension, NC Past Surgical History: Yes Surgical History: Angioplasty/Stents, CABG/Valve Surgery, 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 negative: See HPI, Productive Cough, Non- Productive Cough, Moist Cough, Dry Cough, Hacking Cough, Barking Cough, Brassy Cough, Orthopnea, Short of Breath, Stridor, Wheezing, Hemoptysis, Other Cardiovascular: No Symptoms Reported, Chest Pain Gastrointestinal/Abdominal: No Symptoms Reported. negative: See HPI, Abdominal Pain, Constipation, Diarrhea, Nausea, Vomiting, Food Intolerance, Other Genitourinary: No Symptoms Reported Neurological: No Symptoms Reported Musculoskeletal: No Symptoms Reported Integumentary: No Symptoms Reported. negative: See HPI, Change in Color, Change in Hair/Nails, Dryness, Lesions, Lumps, Rash, Itching, Wound, Bruises, Juandice, Other Hematologic/Lymphatic: No Symptoms Reported. negative: See HPI, Anemia, Blood Clots, Easy Bleeding, Easy Bruising, Swollen Glands, Lymphadenopathy, Other Endocrine: No Symptoms Reported Psychiatric: No Symptoms Reported. negative: See HPI, Anxiety, Depression, [place] ucinations, Excessive crying, Suicidal, Other <DANIEL CALDWELL - Last Filed: 01/23/19 20:12> PE - General Limitations: No Limitations General Appearance: Alert, In Distress (moderate) - Head Head Exam: Normal Inspection, Atraumatic, Normocephalic - Eyes Eye exam: Normal Appearance, PERRL, EOMI. negative: Scleral Icterus, Conjunctival Injection, Nystagmus, Miosis, Mydrasis, Periorbital Swelling, Periorbital Tenderness, Other - ENT ENT Exam: Normal Exam, Normal Oropharynx, Normal External Ear Exam, Mucous Membranes Moist, TM's Normal Bilaterally External Ear Exam: Normal External Inspection TM/Canal Exam: Bilateral Normal Nose Exam: Normal Nose Exam Mouth Exam: Normal Inspection. negative: Drooling, Trismus, Lip Swelling, Tongue Elevation, Tongue Swelling, Laceration, Other Throat Exam: Normal Inspection. negative: Tonsillar Erythema, Tonsillomegaly, Tonsillar Exudate, R Peritonsillar Mass, L Peritonsillar Mass, Muffled Voice, Ot her - Neck Neck Exam: Normal Inspection, Full ROM, Trachea Midline. negative: Tenderness, Meningismus, Lymphadenopathy, Thyromegaly, Other - Chest Chest Inspection: Normal Inspection, Symmetric Chest Wall Rise. negative: Tenderness, Rash, Abscess, Other - Respiratory Respiratory Exam: Normal Lung Sounds Bilat Respiratory Exam: Bilateral Clear to Auscultation - Cardiovascular Cardiovascular Exam: Regular Rate, Normal Rhythm, Bradycardia, Normal Heart Sounds, Systolic Murmur - Abdominal Exam Abdominal Exam: Normal Inspection, Normal Bowel Sounds, Soft, Tenderness (epigastric tenderness) Abdominal Tenderness: Epigastrium, Moderate - Extremities Extremities Exam: Normal Inspection, Full ROM, Normal Capillary Refill. negative: Tenderness, Edema, Joint Swelling, Calf Tenderness, Other - Back Back Exam: Normal Inspection, Full ROM. negative: Tenderness, (R) CVA Tender ness, (L) CVA Tenderness, Muscle Spasm, Paraspinal Tenderness, Vertebral Tenderness, Rashes, (R) Sciatic Notch Tenderness, (L) Sciatic Notch Tendern, (R) Straight Leg Raise, (L) Straight Leg Raise, Other - Neurologic Neurological Exam: Alert, Oriented X3, CN II-XII Intact, Reflexes Normal. negative: Normal Gait (gait not tested) - Psychiatric Psychiatric Exam: Normal Affect, Normal Mood - Skin Skin Exam: Warm, Dry, Intact, Normal Color <DANIEL CALDWELL - Last Filed: 01/23/19 20:12> - Vital Signs Vitals: Temperature 97.3 F Pulse Rate 51 Respiratory Rate 24 Blood Pressure [Right Arm] 133/63 Blood Pressure [Left Arm] 125/66 Blood Pressure 157/70 O2 Sat by Pulse Oximetry 99 Course - Reevaluation 1st: Improved (2020 Dr. Wright to assume the care of this patient. Awaiting results of labs and x-rays.) <DANIEL CALDWELL - Last Filed: 01/23/19 20:12> - Reevaluation 2nd: Unchanged (care received from Dr Caldwell) - Consultation Call Returned: 21:45 (s/w dr luevano who accepts pt) <Opal Wright - Last Filed: 01/24/19 01:23> ROR - Labs Reviewed Result Diagrams: 01/23/19 19:30 01/23/19 19:30 <DANIEL CALDWELL - Last Filed: 01/23/19 20:12> - Labs Reviewed Laboratory Results Reviewed?: Yes Result Diagrams: 01/23/19 19:30 01/23/19 19:30 - Other Results Comments: Cardiomegaly and COPD without other acute. chest process. - XRAY XRAY Interpreted by: Radiologist <Opal Wright - Last Filed: 01/24/19 01:23> - Labs Reviewed Laboratory: WBC 9.1 X10^3/uL (3.6-10.0) 01/23/19 19:30 RBC 3.32 X10^6/uL (3.5-5.4) L 01/23/19 19:30 Hgb 10.8 g/dL (12.0-16.0) L 01/23/19 19: Hct 31.4 % (36.0-47.0) L 01/23/19 19: MCV 94.5 fL (80.0-100.0) 01/23/19: MCH 32.6 pg (27.0-34.0) 01/23/19: MCHC 34.5 g/dL (33.0-35.0) 01/23/19: RDW 13.2 % (11.6-16.5) 01/23/19: Plt Count 374 X10^3/uL (150.0-450.0) 01/23/19: MPV 7.8 fL (7.4-11.0) 01/23/19: Neut % (Auto) 62.1 % (42.0-75.0) 01/23/19: Lymph % (Auto) 27.3 % (21.0-51.0) 01/23/19: [place] % (Auto) 6.2 % (0.0-13.0) 01/23/19: Eos % (Auto) 3.6 % (0.9-2.9) H 01/23/19: Baso % (Auto) 0.8 % (0.2-1.0) 01/23/19: Neut # (Auto) 5.6 x10^3/uL (2.2-4.8) H 01/23/19 19:30 Lymph # (Auto) 2.5 X10^3/uL (1.3-2.9) 01/23/19:30 [place] # (Auto) 0.6 x10^3/uL (0.3-0.8) 01/23/19 19:30 Eos # (Auto) 0.3 x10^3/uL (0.0-0.2) H 01/23/19 19:30 Baso # (Auto) 0.1 X10^3/uL (0.0-0.1) 01/23/19 19:30 Absolute Nucleated RBC 0.0 /100WBC 01/23/19 19:30 PT 15.3 SECONDS (11.8-14.3) 01/23/19 19:30 INR Target Range - 01/23/19 19:30 INR 1.26 (0.8-1.3) 01/23/19 19:30 APTT 29.2 SECONDS (22.9-36.5) 01/23/19 19:30 PTT Comment - 01/23/19 19:30 Sodium 137 mmol/L (136-145) 01/23/19 19:30 Corrected Sodium 140 mmol/L (136-145) 01/23/19 19:30 Potassium 4.6 mmol/L (3.5-5.1) 01/23/19 19:30 Chloride 102 mmol/L (98-107) 01/23/19 19:30 Carbon Dioxide 27.8 mmol/L (21-32) 01/23/19 19:30 BUN 84 mg/dL (7-18) H 01/23/19 19:30 Creatinine 1.77 mg/dL (0.55-1.02) H 01/23/19 19:30 Est GFR (MDRD) Af Amer 38 (>60) L 01/23/19 19:30 Est GFR (MDRD) Non-Af 31 (>60) L 01/23/19 19:30 Glucose 243 mg/dL (65-99) H 01/23/19 19:30 Calcium 10.9 mg/dL (8.5-10.1) H 01/23/19 19:30 Corrected Calcium TNP 01/23/19 19:30 Magnesium 2.2 mg/dL (1.7-2.9) 01/23/19 19:30 Total Bilirubin 0.10 mg/dL (0.2-1.0) L 01/23/19 19:30 AST 12 Units/L (15-37) L 01/23/19 19:30 ALT 19 Units/L (12-78) 01/23/19 19:30 Alkaline Phosphatase 132 Units/L (46-116) H 01/23/19 19:30 Creatine Kinase 73 Units/L (26-192) 01/23/19 19:30 CK-MB (CK-2) < 1.0 ng/mL (0-4.0) 01/23/19 19:30 CK/CKMB % Calc 1.4 % (<4) 01/23/19 19:30 Troponin I < 0.02 ng/mL (0-1.5) 01/23/19 19:30 Total Protein 8.0 g/dL (6.4-8.2) 01/23/19 19:30 Albumin 3.7 g/dL (3.4-5.0) 01/23/19 19:30 Globulin 4.3 g/dL (2.5-4.5) 01/23/19 19:30 Albumin/Globulin Ratio 0.9 Ratio (1.1-2.1) L 01/23/19 19:30 Specimen Type Clean catch urine 01/23/19 20:37 Urine Color Yellow (YELLOW) 01/23/19 20:37 Urine Appearance Hazy (CLEAR) 01/23/19 20:37 Urine pH 5.0 (5.0 - 8.0) 01/23/19 20:37 Ur Specific [place] 1.015 (1.000-1.030) 01/23/19 20:37 Urine Protein 3+ (NEGATIVE) 01/23/19 20:37 Urine Glucose (UA) 2+ (NEGATIVE) 01/23/19 20:37 Urine Ketones Negative (NEGATIVE) 01/23/19 20:37 Urine Occult Blood 3+ (NEGATIVE) 01/23/19 20:37 Urine Nitrite Negative (NEGATIVE) 01/23/19 20:37 Urine Bilirubin Negative (NEGATIVE) 01/23/19 20:37 Urine Urobilinogen Normal (NORMAL) 01/23/19 20:37 Ur Leukocyte Esterase 2+ (NEGATIVE) 01/23/19 20:37 Opioid - Opioid Risk Tool Age (Taye box if 16-45): No History of Preadolescent Sexual Abuse: No Total: 0 Total Score Risk Category: Low Risk <DANIEL CALDWELL - Last Filed: 01/23/19 20:12> - Opioid Risk Tool Total: 0 Total Score Risk Category: Low Risk <Opal Wright - Last Filed: 01/24/19 01:23> <DANIEL CALDWELL - Last Filed: 01/23/19 20:12> <Opal Wright - Last Filed: 01/24/19 01:23> - Diagnosis Discharge Problem: Cystitis, Hypercalcemia, Anemia Chest pain Qualifiers: Chest pain type: other chest pain Qualified Code(s): R07.89 - Other chest pain; R07.8 - Other chest pain - Discharge Plan Disposition: 09 ADMITTED INPATIENT Condition: Stable - Follow ups/Referrals Follow ups/Referrals: SARBJIT ANDERSON [Primary Care Provider] - 3 days - Instructions Instructions: Hypercalcemia
[2019-01-23] MEDS ORDERED: LEVSIN/MAALOX/LIDOC VISC PO ONE (19:44)
[2019-01-23] MEDS ORDERED: NITROSTAT ONE (19:47)
[2019-01-23] MEDS ORDERED: LEVSIN/MAALOX/LIDOC VISC ONE (19:47)
[2019-01-23] MEDS ORDERED: NS 1000 ML 1,000 ML ONE (19:47)
[2019-01-23 19:51] LABS: BASOPHILS # (AUTO) 0.1 X10^3/uL (0.0-0.1); BASOPHILS % (AUTO) 0.8 % (0.2-1.0); EOSINOPHILS # (AUTO) 0.3 x10^3/uL (0.0-0.2); EOSINOPHILS % (AUTO) 3.6 % (0.9-2.9); HEMATOCRIT 31.4 % (36.0-47.0); HEMOGLOBIN 10.8 g/dL (12.0-16.0); LYMPHOCYTES # (AUTO) 2.5 X10^3/uL (1.3-2.9); LYMPHOCYTES % (AUTO) 27.3 % (21.0-51.0); MEAN CORPUSCULAR HEMOGLOBIN 32.6 pg (27.0-34.0); MEAN CORPUSCULAR HGB CONC 34.5 g/dL (33.0-35.0); MEAN CORPUSCULAR VOLUME 94.5 fL (80.0-100.0); MEAN PLATELET VOLUME 7.8 fL (7.4-11.0); MONOCYTES # (AUTO) 0.6 x10^3/uL (0.3-0.8); MONOCYTES % (AUTO) 6.2 % (0.0-13.0); NEUTROPHILS # (AUTO) 5.6 x10^3/uL (2.2-4.8); NEUTROPHILS % (AUTO) 62.1 % (42.0-75.0); PLATELET COUNT 374 X10^3/uL (150.0-450.0); RED BLOOD COUNT 3.32 X10^6/uL (3.5-5.4); RED CELL DISTRIBUTION WIDTH 13.2 % (11.6-16.5); WHITE BLOOD COUNT 9.1 X10^3/uL (3.6-10.0)
[2019-01-23] MEDS ORDERED: NS 1000 ML 1,000 ML IV SCH ×2 (20:00→23:00)
[2019-01-23 20:05] LABS: BLOOD UREA NITROGEN 84 mg/dL (7-18); CALCIUM 10.9 mg/dL (8.5-10.1); CARBON DIOXIDE 27.8 mmol/L (21-32); CHLORIDE 102 mmol/L (98-107); COR NA(FOR HYPERGLY) 140 mmol/L (136-145); CREATININE 1.77 mg/dL (0.55-1.02); SODIUM 137 mmol/L (136-145); TROPONIN I < 0.02 ng/mL (0-1.5); eGFR NON BLACK RACES 31 (>60)
[2019-01-23 20:09] LABS: ALANINE AMINOTRANSFERASE 19 Units/L (12-78); ALBUMIN 3.7 g/dL (3.4-5.0); ALKALINE PHOSPHATASE 132 Units/L (46-116); ASPARTATE AMINO TRANSFERASE 12 Units/L (15-37); CKMB % 1.4 % (<4); CREATINE KINASE 73 Units/L (26-192); CREATINE KINASE MB < 1.0 ng/mL (0-4.0); MAGNESIUM 2.2 mg/dL (1.7-2.9)
--- NOTE | 2019-01-23 20:44 | RAD ---
Chest AP portableIndication: Chest pain for 45 minutesCOMPARISONAugust 2018FINDINGSThere is no pneumothorax or effusion. There is no consolidation. Heart size enlarged. Sternotomy change notedIMPRESSIONCardiomegaly and COPD without other acute chest process.Electronically signed by: TRAMAINE MYERS (Jan 23, 2019 20:42:51)
[2019-01-23 20:45] LABS: BILIRUBIN,URINE NEGATIVE (NEGATIVE); BLOOD/HEMOGLOBIN,URINE 3+ (NEGATIVE); GLUCOSE, URINE 2+ (NEGATIVE); KETONES,URINE NEGATIVE (NEGATIVE); LEUKOCYTE ESTERASE ,URINE 2+ (NEGATIVE); NITRITES,URINE NEGATIVE (NEGATIVE); PROTEIN,URINE 3+ (NEGATIVE); UROBILINOGEN,URINE NORMAL (NORMAL)
[2019-01-23 20:51] LABS: APPEARANCE,URINE HAZY (CLEAR); COLOR,URINE YELLOW (YELLOW)
[2019-01-23] MEDS ORDERED: ROCEPHIN VIAL 1 GRAM 1 G in NS 100 ML IV + SPIKE MINIBAG* 100 ML IV SCH (22:12)
[2019-01-23] MEDS ORDERED: HumaLOG SC PRN (22:13)
[2019-01-23] MEDS ORDERED: ROCEPHIN VIAL 1 GRAM ONE (22:28)
[2019-01-23] MEDS ORDERED: ROCEPHIN VIAL 1 GRAM IVP SCH (22:30)
[2019-01-23] MEDS ORDERED: LOVENOX INJ 100 MG SYR SC SCH (23:00)
[2019-01-23] MEDS ORDERED: LOVENOX INJ 100 MG SYR SC ONE (23:42)
[2019-01-24 01:56] LABS: CKMB % 1.8 % (<4); CREATINE KINASE 56 Units/L (26-192); CREATINE KINASE MB < 1.0 ng/mL (0-4.0); TROPONIN I < 0.02 ng/mL (0-1.5)
[2019-01-24 05:57] LABS: BASOPHILS # (AUTO) 0.1 X10^3/uL (0.0-0.1); BASOPHILS % (AUTO) 0.7 % (0.2-1.0); EOSINOPHILS # (AUTO) 0.3 x10^3/uL (0.0-0.2); EOSINOPHILS % (AUTO) 3.5 % (0.9-2.9); HEMATOCRIT 26.2 % (36.0-47.0); HEMOGLOBIN 9.2 g/dL (12.0-16.0); LYMPHOCYTES # (AUTO) 2.6 X10^3/uL (1.3-2.9); LYMPHOCYTES % (AUTO) 34.5 % (21.0-51.0); MEAN CORPUSCULAR HGB CONC 35.2 g/dL (33.0-35.0); MEAN CORPUSCULAR VOLUME 93.8 fL (80.0-100.0); MEAN PLATELET VOLUME 7.7 fL (7.4-11.0); MONOCYTES # (AUTO) 0.5 x10^3/uL (0.3-0.8); MONOCYTES % (AUTO) 6.8 % (0.0-13.0); NEUTROPHILS # (AUTO) 4.2 x10^3/uL (2.2-4.8); NEUTROPHILS % (AUTO) 54.5 % (42.0-75.0); PLATELET COUNT 302 X10^3/uL (150.0-450.0); RED CELL DISTRIBUTION WIDTH 13.4 % (11.6-16.5); WHITE BLOOD COUNT 7.6 X10^3/uL (3.6-10.0)
[2019-01-24 06:27] LABS: ALANINE AMINOTRANSFERASE 17 Units/L (12-78); ALKALINE PHOSPHATASE 104 Units/L (46-116); ASPARTATE AMINO TRANSFERASE 9 Units/L (15-37); BLOOD UREA NITROGEN 81 mg/dL (7-18); CARBON DIOXIDE 25.3 mmol/L (21-32); CHLORIDE 107 mmol/L (98-107); CHOL/HDL RATIO 2.7 (0.0-5.0); CHOLESTEROL 178 mg/dL (0-200); COR CA(FOR HYPOALB) 10.8 mg/dL (8.5-10.1); COR NA(FOR HYPERGLY) 141 mmol/L (136-145); CREATININE 1.71 mg/dL (0.55-1.02); HDL CHOLESTEROL 67 mg/dL (40-60); MAGNESIUM 2.2 mg/dL (1.7-2.9); SODIUM 139 mmol/L (136-145); TOTAL PROTEIN 6.6 g/dL (6.4-8.2); TRIGLYCERIDES 187 mg/dL (0-150); eGFR NON BLACK RACES 32 (>60)
[2019-01-24 08:00] LABS: CKMB % 1.7 % (<4); CREATINE KINASE 59 Units/L (26-192); CREATINE KINASE MB < 1.0 ng/mL (0-4.0); TROPONIN I < 0.02 ng/mL (0-1.5)
[2019-01-24] MEDS ORDERED: HumuLIN R SUBCUT PRN (08:01)
[2019-01-24] MEDS ORDERED: LOPRESSOR TAB 50 MG PO SCH (09:00)
[2019-01-24] MEDS ORDERED: ELIQUIS PO SCH (09:15)
[2019-01-24] MEDS ORDERED: ENTRESTO 24/26 MG TAB PO SCH (09:15)
[2019-01-24] MEDS ORDERED: LEVETIRACETAM 500 MG PO SCH (09:15)
[2019-01-24] MEDS ORDERED: LOVENOX INJ 100 MG SYR SC SCH (10:00)
[2019-01-24] MEDS ORDERED: COREG TAB 12.5 MG PO SCH (10:00)
[2019-01-24] MEDS ORDERED: COREG TAB 6.25 MG PO SCH (10:00)
[2019-01-24] MEDS ORDERED: PEPCID TAB 20 MG PO SCH (10:00)
[2019-01-24] MEDS ORDERED: KEPPRA TAB 500 MG PO SCH (10:00)
[2019-01-24] MEDS ORDERED: SYNTHROID 25 mcg TAB PO SCH (10:00)
[2019-01-24 10:18] VITALS: BP 106/55
[2019-01-24] MEDS ORDERED: SNACK - Diabetic Appropriate PO SCH (20:00)
[2019-01-24] MEDS ORDERED: LIPITOR TAB 40 MG PO SCH (21:00)
[2019-01-24] MEDS ORDERED: ZOLOFT PO SCH (21:00)
[2019-01-24] MEDS ORDERED: CORDARONE TAB 200 MG PO SCH (21:00)
[2019-01-24] MEDS ORDERED: K-DUR TAB 20 MEQ PO SCH (21:00)
[2019-01-24] MEDS ORDERED: ROCEPHIN VIAL 1 GRAM IVP SCH (22:00)
[2019-01-25] MEDS ORDERED: ALDACTONE TAB 25 MG PO SCH (09:00)
[2019-01-25] MEDS ORDERED: PLAVIX PO SCH (09:00)
== END 2019-01-24 11:00 | disposition home or self-care (01) ==
LOC: ER 19:04 → MED/SURG 19:04
PROVIDERS: ADMIT Obstetrics & Gynecology Obstetrics; ATTEND Obstetrics & Gynecology Obstetrics
CPT/HCPCS: 36415; 71010; 71045; 80053; 80061; 81003; 82550; 82553; 83735; 84484; 85025; 85610; 85730; 93005; 96365; 96367; 96374; 99284; A4222; G0378; J0696; J1650; J7030

== ENCOUNTER 2020-04-14 00:19 | Inpatient (IN) ==
[2020-04-14 00:41] VITALS: BMI 41.0
--- NOTE | 2020-04-14 00:52 | DR.GENAD ---
HPI Time Seen Time Seen by Provider: 04/14/20 00:50 PCP Primary Care Physician: HALREY HPI Comment HPI Comment: PATIENT IS 65YR OLD FEMALE IN ER WITH INCREASING RES[IRATORY DISTRESS, LOW HEMOGLOBING LEVEL AND HIGH POTASSIUM LEVELS ON LABS DONE TODAY AND AMS. PATIENT IS SLEEPY. AROUSABLE BUT NOT ANSWERING ALL QUESTIONS. NO FEVER, DIARRHEA OR VOMITING. RECENT WRIST FRACTURE ONE MONTH AGO NOW WEARING LEFT WRIST SPLING. HAVE HAD ONE DIALYSIS RECENTLY AND HAVE INDWELLING LINE IN RIGHT UPPER CHEST AREA. HISTORY ANEMIA ON IRON SUPPLEMENT. HEMOGLOBIN SLIGHTLY LOWER TODAY. PATIENT HAVE OBVIOUS LOWER EXTREMITY EDEMA. PATIENT HAVE HISTORY OF CHF, COPD, HTN, DM, CAD, CKD AND PREVIOUS CVA. Complaint/Symptoms Chief Complaint Doctors Comments: ABNORMAL LABS/POTASSIUM AND HEMOGLOBIN. Chief Complaint:: PT TO ER FROM [facility] BECAUSE LAB WORK WAS DONE AND LEVELS ARE ABNORMAL COVID-19 Coronavirus risk:travel/contact w/high risk person: No Has patient experienced Coronavirus symptoms: No Nurses notes reviewed Nurses Notes Review: Yes Source History Provided: Care Home Mode of Arrival Mode of Arrival: Stretcher Timing Onset of Chief Complaint: 04/14/20 Came on: Gradually Duration Duration: Constant Duration: Days Modifying Factors Worsens:: EXERTION. Improves:: REST. Associated Signs and Symptoms Associated Signs and Symptoms: SOB. Other History Other History: DM, HTN, CHF AND COPD. PMH PMH Past Medical History: Yes Past Medical History: Anemia, Anxiety, CHF, COPD, Coronary Artery Disease, CVA, Depression, Diabetes, Dialysis, Hypertension, MD and Renal Disease Past Surgical History: Yes Surgical History: Angioplasty/Stents, CABG/Valve Surgery and Hysterectomy Family History History of Family Medical Conditions: Yes Family Medical History: Diabetes Mellitus, Cancer, MD and Hypertension Social History Alcohol Use: None Do you use any recreational Drugs:: No Lives Where: Care Home Infectious screening In the last 2 months have you had wt loss of >10#?: NO Have you traveled outside the country in the last 6 months?: No Isolation: Standard ROS Review of Systems Constitutional: No Symptoms Reported, Weakness and Fatigue Eyes: No Symptoms Reported and See HPI ENTM: No Symptoms Reported, See HPI and Nose Congestion Respiratoy: No Symptoms Reported, See HPI, Moist Cough and Short of Breath Cardiovascular: No Symptoms Reported, See HPI and Edema; negative Palpitations (BRADYCARDIA.) Gastrointestinal/Abdominal: No Symptoms Reported and See HPI; negative Diarrhea and Vomiting Genitourinary: No Symptoms Reported and See HPI; negative Hematuria Neurological: See HPI and Weakness Musculoskeletal: No Symptoms Reported and See HPI Integumentary: See HPI and Change in Color; negative Rash and Juandice Hematologic/Lymphatic: See HPI and Easy Bruising Endocrine: See HPI and Decreased Appetite Psychiatric: See HPI and Other (AMS.) All Other Systems: Reviewed and Negative PE Vital Signs Vitals: Temperature 98.5 F Pulse Rate 52 Respiratory Rate 26 Blood Pressure [Right Arm] 132/74 Blood Pressure 139/70 O2 Sat by Pulse Oximetry 96 General Limitations: No Limitations General Appearance: Alert and In No Apparent Distress Head Head Exam: Normal Inspection and Atraumatic Eyes Eye exam: Normal Appearance and PERRL; negative Scleral Icterus and Conjunctival Injection ENT ENT Exam: Normal Exam, Normal External Ear Exam and TM's Normal Bilaterally External Ear Exam: Normal External Inspection TM/Canal Exam: Bilateral: Normal Nose Exam: Normal Nose Exam Mouth Exam: Lip Swelling; negative Trismus and Tongue Swelling Throat Exam: Normal Inspection Neck Neck Exam: Normal Inspection and Trachea Midline; negative Tenderness Chest Chest Inspection: Normal Inspection and Symmetric Chest Wall Rise; negative Tenderness Respiratory Respiratory Exam: Normal Lung Sounds Bilat, Accessory Muscle Use and Respiratory Distress; negative Chest Wall Tenderness Respiratory Exam: Bilateral: Wheezing and Bilateral: Rhonchi and Lower: Wheezing and Lower: Rhonchi Cardiovascular Cardiovascular Exam: Normal Rhythm and Bradycardia Abdominal Exam Abdominal Exam: Normal Inspection, Normal Bowel Sounds and Soft; negative Tenderness Extremities Extremities Exam: Normal Inspection, Edema and Other (LEFT WRIST FX WITH SPLINT ON LT WRIST.) Back Back Exam: Normal Inspection and Paraspinal Tenderness Neurologic Neurological Exam: negative Alert (SLEEPY BUT AROUSABLE.) Psychiatric Psychiatric Exam: Agitated (SLIGHTLY.) Skin Skin Exam: Other (EDEMA.) MDM Additional Information Additional Information Obtained From: Old Records Differential Diagnosis Differential Diagnosis: CHF, PNEUMONIA, AMS, UTI, COPD, MD, GENERALIZED WEAKNESS, ABNORMAL LAB. COURSE Treatment Treatment: SEE ORDERS. LASIX 40MG IV, BI-PAP, KAYEXALATE 15GM ENEMA. REPEAT POTASSIUM PENDING. RENAL INSUFFICIENCY SLIGHT WORSE TODAY. 2UNITS BLOOD TYPE AND SCREEN PENDING TRANFUSE PER PCP. SIMILAR LEVEL OF BLOOD NOTED RECENTLY. PATIENT ON IRON. Reevaluation 1st: Improved (SOB IMPROVING.) Consultation Consultation Comments: DISCUSSED PATIENT WITH DR. ALBRIGHT, SHE WILL ADMIT PATIENT. Education/Counseling Educated On: Diagnosis ROR Labs Reviewed Laboratory Results Reviewed?: Yes Result Diagrams: 04/14/20 04:26 04/14/20 14:11 Laboratory: WBC 8.5 X10^3/uL (3.6-10.0) 04/14/20 04:26 RBC 2.15 X10^6/uL (3.5-5.4) L 04/14/20 04:26 Hgb 7.0 g/dL (12.0-16.0) L 04/14/20 04:26 Hct 21.6 % (36.0-47.0) L 04/14/20 04:26 MCV 100.4 fL (80.0-100.0) H 04/14/20 04:26 MCH 32.6 pg (27.0-34.0) 04/14/20 04:26 MCHC 32.5 g/dL (33.0-35.0) L 04/14/20 04:26 RDW 15.1 % (11.6-16.5) 04/14/20 04:26 Plt Count 341 X10^3/uL (150.0-450.0) 04/14/20 04:26 MPV 8.0 fL (7.4-11.0) 04/14/20 04:26 Neut % (Auto) 68.7 % (42.0-75.0) 04/14/20 04:26 Lymph % (Auto) 18.9 % (21.0-51.0) L 04/14/20 04:26 [place] % (Auto) 8.1 % (0.0-13.0) 04/14/20 04:26 Eos % (Auto) 3.5 % (0.9-2.9) H 04/14/20 04:26 Baso % (Auto) 0.8 % (0.2-1.0) 04/14/20 04:26 Neut # (Auto) 5.8 x10^3/uL (2.2-4.8) H 04/14/20 04:26 Lymph # (Auto) 1.6 X10^3/uL (1.3-2.9) 04/14/20 04:26 [place] # (Auto) 0.7 x10^3/uL (0.3-0.8) 04/14/20 04:26 Eos # (Auto) 0.3 x10^3/uL (0.0-0.2) H 04/14/20 04:26 Baso # (Auto) 0.1 X10^3/uL (0.0-0.1) 04/14/20 04:26 Absolute Nucleated RBC 0.1 /100WBC 04/14/20 04:26 Sodium 141 mmol/L (136-145) 04/14/20 04:26 Corrected Sodium 142 mmol/L (136-145) 04/14/20 04:26 Potassium 5.9 mmol/L (3.5-5.1) H 04/14/20 04:26 Chloride 107 mmol/L (98-107) 04/14/20 04:26 Carbon Dioxide 31.0 mmol/L (21-32) 04/14/20 04:26 BUN 60 mg/dL (7-18) H 04/14/20 04:26 Creatinine 2.80 mg/dL (0.55-1.02) H 04/14/20 04:26 Est GFR (MDRD) Af Amer 22 (>60) L 04/14/20 04:26 Est GFR (MDRD) Non-Af 18 (>60) L 04/14/20 04:26 Glucose 127 mg/dL (65-99) H 04/14/20 04:26 Calcium 10.9 mg/dL (8.5-10.1) H 04/14/20 04:26 Corrected Calcium 11.7 mg/dL (8.5-10.1) H 04/14/20 04:26 Total Bilirubin 0.30 mg/dL (0.2-1.0) 04/14/20 04:26 AST 12 Units/L (15-37) L 04/14/20 04:26 ALT 25 Units/L (12-78) 04/14/20 04:26 Alkaline Phosphatase 147 Units/L (46-116) H 04/14/20 04:26 Creatine Kinase 139 Units/L (26-192) 04/14/20 04:26 CK-MB (CK-2) 1.5 ng/mL (0-4.0) 04/14/20 04:26 CK/CKMB % Calc 1.1 % (<4) 04/14/20 04:26 Troponin I 0.03 ng/mL (0-1.5) 04/14/20 04:26 B-Natriuretic Peptide 2770 pg/mL (0-79) H* 04/14/20 00:40 Total Protein 7.0 g/dL (6.4-8.2) 04/14/20 04:26 Albumin 3.0 g/dL (3.4-5.0) L 04/14/20 04:26 Globulin 4.0 g/dL (2.5-4.5) 04/14/20 04:26 Albumin/Globulin Ratio 0.8 Ratio (1.1-2.1) L 04/14/20 04:26 SARS CoV-2 RNA Rapid LEIGH Negative (NEGATIVE) 04/14/20 01:47 Blood Type A POSITIVE 04/14/20 00:40 Antibody Screen Negative 04/14/20 00:40 Crossmatch See Detail 04/14/20 00:40 XRAY XRAY Interpreted by: Radiologist and Self EKG Rate: 50 [place]: Normal Rhythm: SB Block: 1 Hypertrophy: None ST: Normal, Old, Ant and Infarct Opioid Opioid Risk Tool Age (Taye box if 16-45): No History of Preadolescent Sexual Abuse: No Total: 0 Total Score Risk Category: Low Risk Copyright: Shade [place] predicting aberrant behaviors Diagnosis Discharge Problem: Acute hyperkalemia, Chronic renal insufficiency, stage I CHF (congestive heart failure) Qualifiers: Heart failure type: combined systolic and diastolic Heart failure chronicity: acute on chronic Qualified Code(s): I50.43 - Acute on chronic combined systolic (congestive) and diastolic (congestive) heart failure Pulmonary edema Qualifiers: Chronicity: acute Qualified Code(s): J81.0 - Acute pulmonary edema AMS (altered mental status) Qualifiers: Altered mental status type: transient alteration of awareness Qualified Code(s): R40.4 - Transient alteration of awareness Instructions Forms: Excuse From Work or School Precautions for COVID19 Patient Portal Social Distancing
[2020-04-14] MEDS ORDERED: LASIX IVP ONE ×2 (02:18→02:27)
[2020-04-14] MEDS ORDERED: KAYEXALATE SUSP PO ONE (02:20)
--- NOTE | 2020-04-14 03:26 | RAD ---
STUDY: CHEST, 1 VIEWCOMPARISON: 01/23/2019HISTORY: SOBFINDINGS:Cardiomegaly is seen with findings suggesting moderate degree of pulmonary edema. Right IJ dual-lumen dialysis catheter has been placed with tip projecting over the distal SVC. Midline sternotomy wires are stable. No pleural effusion or gross pneumothorax is seen. Trachea is midline.IMPRESSION:There is progression of pulmonary edema when compared to the prior examination with cardiomegaly.Electronically signed by: Travis Burgess (Apr 14, 2020 03:24:47)
[2020-04-14 04:38] LABS: BASOPHILS # (AUTO) 0.1 X10^3/uL (0.0-0.1); BASOPHILS % (AUTO) 0.8 % (0.2-1.0); EOSINOPHILS # (AUTO) 0.3 x10^3/uL (0.0-0.2); EOSINOPHILS % (AUTO) 3.5 % (0.9-2.9); HEMATOCRIT 21.6 % (36.0-47.0); LYMPHOCYTES # (AUTO) 1.6 X10^3/uL (1.3-2.9); LYMPHOCYTES % (AUTO) 18.9 % (21.0-51.0); MEAN CORPUSCULAR HEMOGLOBIN 32.6 pg (27.0-34.0); MEAN CORPUSCULAR HGB CONC 32.5 g/dL (33.0-35.0); MEAN CORPUSCULAR VOLUME 100.4 fL (80.0-100.0); MONOCYTES # (AUTO) 0.7 x10^3/uL (0.3-0.8); MONOCYTES % (AUTO) 8.1 % (0.0-13.0); NEUTROPHILS # (AUTO) 5.8 x10^3/uL (2.2-4.8); NEUTROPHILS % (AUTO) 68.7 % (42.0-75.0); PLATELET COUNT 341 X10^3/uL (150.0-450.0); RED BLOOD COUNT 2.15 X10^6/uL (3.5-5.4); RED CELL DISTRIBUTION WIDTH 15.1 % (11.6-16.5); WHITE BLOOD COUNT 8.5 X10^3/uL (3.6-10.0)
[2020-04-14 04:54] LABS: CALCIUM 10.9 mg/dL (8.5-10.1); CREATININE 2.8 mg/dL (0.55-1.02); TROPONIN I 0.03 ng/mL (0-1.5)
[2020-04-14 04:57] LABS: CKMB % 1.1 % (<4); COR CA(FOR HYPOALB) 11.7 mg/dL (8.5-10.1); CREATINE KINASE MB 1.5 ng/mL (0-4.0)
[2020-04-14] MEDS ORDERED: KAYEXALATE SUSP ONE (06:27)
[2020-04-14 07:38] LABS: ABG BASE EXCESS 5.4 mmol/L (-2.0-2.0)
[2020-04-14 07:39] LABS: ABG ALLEN TEST POS; ABG HCO3 31.9 mmol/L (22-26)
[2020-04-14] MEDS ORDERED: TYLENOL #3 TAB (W/CODEINE) PO PRN (07:49)
[2020-04-14 08:09] LABS: CKMB % 1.2 % (<4); CREATINE KINASE MB 1.5 ng/mL (0-4.0); TROPONIN I 0.03 ng/mL (0-1.5)
[2020-04-14] MEDS: ZOLOFT PO SCH (08:57)
[2020-04-14] MEDS: VITAMIN D3 25 mcg (1,000 UNITS) PO SCH (08:58)
[2020-04-14] MEDS: SYNTHROID 25 mcg TAB PO SCH (08:59)
[2020-04-14] MEDS: SEROquel TAB 25 mg PO SCH (08:59)
[2020-04-14] MEDS ORDERED: COREG TAB 12.5 MG PO SCH (09:00)
[2020-04-14] MEDS: KEPPRA TAB 500 MG PO SCH ×2 (09:00→21:58)
[2020-04-14] MEDS ORDERED: MACROBID CAP 100 MG EXT REL PO SCH (09:00)
[2020-04-14] MEDS: HEMOCYTE-PLUS PO SCH (09:01)
[2020-04-14] MEDS: KAYEXALATE SUSP PO SCH ×2 (09:01→21:58)
[2020-04-14] MEDS: FOLIC ACID TAB 1 MG PO SCH (09:02)
[2020-04-14] MEDS: ENTRESTO 24/26 MG TAB PO SCH (09:03)
[2020-04-14] MEDS: COREG TAB 6.25 MG PO SCH ×2 (09:03→21:58)
[2020-04-14] MEDS ORDERED: PLAVIX ONE (09:04)
[2020-04-14] MEDS ORDERED: MACROBID CAP 100 MG EXT REL PO ONE (09:04)
[2020-04-14] MEDS ORDERED: ELIQUIS ONE (09:05)
[2020-04-14] MEDS ORDERED: LASIX ONE (09:05)
[2020-04-14] MEDS: ELIQUIS PO SCH ×2 (09:07→21:58)
[2020-04-14] MEDS: LASIX IVP SCH ×2 (09:07→20:30)
[2020-04-14] MEDS: PLAVIX PO SCH (09:08)
[2020-04-14 09:21] LABS: BILIRUBIN,URINE NEGATIVE (NEGATIVE); BLOOD/HEMOGLOBIN,URINE 4+ (NEGATIVE); GLUCOSE, URINE NEGATIVE (NEGATIVE); KETONES,URINE NEGATIVE (NEGATIVE); LEUKOCYTE ESTERASE ,URINE 2+ (NEGATIVE); NITRITES,URINE NEGATIVE (NEGATIVE); PROTEIN,URINE 3+ (NEGATIVE); UROBILINOGEN,URINE NORMAL (NORMAL)
[2020-04-14 09:55] LABS: APPEARANCE,URINE SLIGHTLY HAZY (CLEAR); COLOR,URINE YELLOW (YELLOW)
[2020-04-14 09:56] LABS: BACTERIA,URINE TRACE /HPF (NEGATIVE); HYALINE CASTS, URINE MANY /LPF (NEGATIVE); SQUAMOUS EPITHELIAL CELL,UR FEW /HPF (NEGATIVE)
[2020-04-14] MEDS ORDERED: PHARMACY CONSULT LTC MEDICATIONS XX SCH (10:00)
[2020-04-14 14:12] LABS: CKMB % 1.2 % (<4); CREATINE KINASE MB 1.4 ng/mL (0-4.0); TROPONIN I 0.02 ng/mL (0-1.5)
[2020-04-14 14:26] LABS: CALCIUM 10.7 mg/dL (8.5-10.1); CARBON DIOXIDE 32.1 mmol/L (21-32); CREATININE 2.65 mg/dL (0.55-1.02)
[2020-04-14] MEDS ORDERED: NS 250 ML IV 250 ML IV ONE ×2 (16:32→16:36)
[2020-04-14] MEDS: CORDARONE TAB 200 MG PO SCH (21:58)
[2020-04-14] MEDS: LIPITOR TAB 40 MG PO SCH (21:59)
[2020-04-15] MEDS ORDERED: NS 250 ML IV 250 ML IV ONE (01:23)
[2020-04-15 06:03] LABS: BASOPHILS # (AUTO) 0.1 X10^3/uL (0.0-0.1); BASOPHILS % (AUTO) 0.8 % (0.2-1.0); EOSINOPHILS # (AUTO) 0.4 x10^3/uL (0.0-0.2); HEMATOCRIT 26.7 % (36.0-47.0); HEMOGLOBIN 8.8 g/dL (12.0-16.0); LYMPHOCYTES # (AUTO) 1.3 X10^3/uL (1.3-2.9); LYMPHOCYTES % (AUTO) 15.6 % (21.0-51.0); MEAN CORPUSCULAR HEMOGLOBIN 31.8 pg (27.0-34.0); MEAN CORPUSCULAR HGB CONC 32.9 g/dL (33.0-35.0); MEAN CORPUSCULAR VOLUME 96.6 fL (80.0-100.0); MONOCYTES # (AUTO) 0.6 x10^3/uL (0.3-0.8); MONOCYTES % (AUTO) 7.1 % (0.0-13.0); NEUTROPHILS # (AUTO) 5.7 x10^3/uL (2.2-4.8); NEUTROPHILS % (AUTO) 71.5 % (42.0-75.0); PLATELET COUNT 344 X10^3/uL (150.0-450.0); RED BLOOD COUNT 2.76 X10^6/uL (3.5-5.4); RED CELL DISTRIBUTION WIDTH 15.9 % (11.6-16.5)
[2020-04-15 06:40] LABS: ALBUMIN 2.7 g/dL (3.4-5.0); CALCIUM 10.7 mg/dL (8.5-10.1); CARBON DIOXIDE 30.6 mmol/L (21-32); COR CA(FOR HYPOALB) 11.7 mg/dL (8.5-10.1); CREATININE 2.28 mg/dL (0.55-1.02); MAGNESIUM 3.2 mg/dL (1.7-2.9); TOTAL PROTEIN 6.8 g/dL (6.4-8.2)
[2020-04-15] MEDS ORDERED: NS 500 ML IV 500 ML IV PRN (09:03)
[2020-04-15] MEDS ORDERED: NS 500 ML IV 500 ML IV ONE (09:05)
[2020-04-15] MEDS: ROCEPHIN VIAL 1 GRAM 1 G in NS 100 ML IV + SPIKE MINIBAG* 100 ML IV SCH (09:09)
[2020-04-15] MEDS: LASIX IVP SCH ×2 (09:10→16:35)
[2020-04-15] MEDS ORDERED: ZOLOFT ONE (09:16)
[2020-04-15] MEDS: ENTRESTO 24/26 MG TAB PO SCH ×2 (09:17→22:00)
[2020-04-15] MEDS: KEPPRA TAB 500 MG PO SCH ×2 (09:18→22:00)
[2020-04-15] MEDS: FOLIC ACID TAB 1 MG PO SCH (09:18)
[2020-04-15] MEDS: ZOLOFT PO SCH (09:18)
[2020-04-15] MEDS: VITAMIN D3 25 mcg (1,000 UNITS) PO SCH (09:18)
[2020-04-15] MEDS: ELIQUIS PO SCH ×2 (09:19→22:00)
[2020-04-15] MEDS: SEROquel TAB 25 mg PO SCH (09:19)
[2020-04-15] MEDS: COREG TAB 6.25 MG PO SCH ×2 (09:19→22:00)
[2020-04-15] MEDS: PLAVIX PO SCH (09:19)
[2020-04-15] MEDS: HEMOCYTE-PLUS PO SCH (09:20)
[2020-04-15] MEDS: SYNTHROID 25 mcg TAB PO SCH (09:20)
[2020-04-15] MEDS ORDERED: LASIX IVP ONE (10:26)
[2020-04-15] MEDS ORDERED: ENTRESTO 24/26 MG TAB PO ONE (10:27)
--- NOTE | 2020-04-15 10:47 | RAD ---
HISTORY:Shortness of breathStudy: Single view chestComparison:04/14/2020FINDINGS/IMPRESSION:Single portable view demonstrates improved aeration of the lungs compared to yesterday's exam with mild residual interstitial edema. Stable cardiomegaly and right IJ CVL. No pneumothorax identified.Electronically signed by: NANCY GIBSON (Apr 15, 2020 10:45:3 9)
[2020-04-15] MEDS: CORDARONE TAB 200 MG PO SCH (22:00)
[2020-04-15] MEDS: LIPITOR TAB 40 MG PO SCH (22:00)
[2020-04-16 06:24] LABS: BASOPHILS # (AUTO) 0.1 X10^3/uL (0.0-0.1); EOSINOPHILS # (AUTO) 0.4 x10^3/uL (0.0-0.2); EOSINOPHILS % (AUTO) 4.7 % (0.9-2.9); HEMATOCRIT 26.8 % (36.0-47.0); HEMOGLOBIN 8.9 g/dL (12.0-16.0); LYMPHOCYTES # (AUTO) 1.6 X10^3/uL (1.3-2.9); LYMPHOCYTES % (AUTO) 18.3 % (21.0-51.0); MEAN CORPUSCULAR HEMOGLOBIN 31.9 pg (27.0-34.0); MEAN CORPUSCULAR HGB CONC 33.3 g/dL (33.0-35.0); MEAN CORPUSCULAR VOLUME 95.8 fL (80.0-100.0); MEAN PLATELET VOLUME 7.8 fL (7.4-11.0); MONOCYTES # (AUTO) 0.6 x10^3/uL (0.3-0.8); MONOCYTES % (AUTO) 7.4 % (0.0-13.0); NEUTROPHILS % (AUTO) 68.6 % (42.0-75.0); PLATELET COUNT 357 X10^3/uL (150.0-450.0); WHITE BLOOD COUNT 8.8 X10^3/uL (3.6-10.0)
[2020-04-16 06:53] LABS: ALBUMIN 2.6 g/dL (3.4-5.0); CALCIUM 10.5 mg/dL (8.5-10.1); CARBON DIOXIDE 31.4 mmol/L (21-32); COR CA(FOR HYPOALB) 11.6 mg/dL (8.5-10.1); CREATININE 1.99 mg/dL (0.55-1.02); TOTAL PROTEIN 6.6 g/dL (6.4-8.2)
--- NOTE | 2020-04-16 07:41 | RAD ---
HISTORYShortness of breathSTUDYChest AP [id number] is status post median sternotomy and CABG. There is a makayla lysis catheter in the superior vena cava. The heart is enlarged. No congestive heart failure is ident ified. No infiltrates or pleural effusions are identified. Bony thorax is unremarkable.IMPRESSIONCard iomegaly without congestive heart failure unchangedLungs clearElectronically signed by: GALILEO RODRIGES (Apr 16, 2020 07:39:09)
[2020-04-16] MEDS ORDERED: ZOLOFT ONE (08:42)
[2020-04-16] MEDS: ELIQUIS PO SCH (10:08)
[2020-04-16] MEDS: SYNTHROID 25 mcg TAB PO SCH (10:09)
[2020-04-16] MEDS: ENTRESTO 24/26 MG TAB PO SCH (10:09)
[2020-04-16] MEDS: FOLIC ACID TAB 1 MG PO SCH (10:09)
[2020-04-16] MEDS: KEPPRA TAB 500 MG PO SCH (10:09)
[2020-04-16] MEDS: VITAMIN D3 25 mcg (1,000 UNITS) PO SCH (10:09)
[2020-04-16] MEDS: HEMOCYTE-PLUS PO SCH (10:10)
[2020-04-16] MEDS: COREG TAB 6.25 MG PO SCH (10:10)
[2020-04-16] MEDS: ZOLOFT PO SCH (10:10)
[2020-04-16] MEDS: LASIX IVP SCH (10:11)
[2020-04-16] MEDS: ROCEPHIN VIAL 1 GRAM 1 G in NS 100 ML IV + SPIKE MINIBAG* 100 ML IV SCH (10:11)
[2020-04-16] MEDS: SEROquel TAB 25 mg PO SCH (10:11)
[2020-04-16] MEDS: PLAVIX PO SCH (10:11)
--- NOTE | 2020-04-16 10:51 | PCM.PROG ---
Progress Note - Progress Note for Day of Date of Exam: 04/15/20 - Subjective Subjective: IS BEING TREATED FOR PULMONARY EDEMA, HYPERKALEMIA, ACUTE ON CHRONIC RENAL FAILURE, UTI, AND ANEMIA. PNH INCLUES: CHF, COPD, HTN, DM, CAD, CKD AND PREVIOUS CVA. SHE IS A RESIDENT OF [facility]. SHE HAS RECEIVED TWO UNITS OF PRBC SINCE ADMISSION. TODAY, SHE IS LYING IN BED WITH EYES CLOSED ON MORNING ROUNDS. SHE AWAKENS TO VERBAL STIMULI. SHE COMPLAINS OF WEAKNESS AND SHORTNESS OF BREATH AT TIMES. STAFF REPORTS THAT SHE HAS HAD CONFUSION AT TIMES. THIS IS LIKELY RELATED TO THE URINARY TRACT INFECTION. SHE HAS BEEN AFEBRILE THROUGHOUT THE NIGHT. ON EXAMINATION, HEART IS REGULAR IN RATE AND RHYTHM. BILATERAL LUNGS ARE NOTED WITH DIMINISHED LUNG SOUND THROUGHOUT. ABDOMEN IS ROUND, SOFT, AND NON-TENDER WITH NORMAL BOWEL SOUNDS NOTED IN ALL QUADRANTS. BILATERAL LOWER EXTREMITIES ARE NOTED WITH 1+ PITTING EDEMA. HER VITAL THIS MORNING ARE: 98.7-64-21-96%-172/80. LABS WERE OBTAINED. ABNORMAL LAB VALUES INCLUDE THE FOLLOWING: RBC 2.76, HGB 8.8, HCT 26.7, INR 1.37, CHLORIDE 108, BUN 54, CREATININE 2.28, GLUCOSE 132, MAGNESIUM 3.2, ALK PHOS 143, ALBUMIN 2.7. URINE CULTURE IS PENDING. CHEST XRAY WAS OBTAINED AND REVEALED: Single portable view demonstrates improved aeration of the lungs compared to yesterday's exam with mild residual interstitial edema. Stable cardiomegaly and right IJ CVL. No pneumothorax identified. SHE IS CURRENTLY NS AT [facility], ENTRESTO 1 TAB DAILY, ZOLOFT 100MG PO DAILY, SEROQUEL 25MG PO DAILY, HEMOCYTE PLUS, SYNTHROID 25MCG PO DAILY, KEPPRA 500MG PO BID, LASIX 20MG IV BID, FOLIC ACID 1 TAB DAILY, PLAVIX 75MG PO DAILY, VITAMIN D3 1000 UNIT PO DAILY, ROCEPHIN 1G PO DAILY, COREG 6.25MG PO BID, LIPITOR 40MG PO HS, ELIQUIS 5MG PO BID, CORDARONE 200MG PO HS, TYLENOL #3 Q6H PRN. TODAY, WE WILL INCREASE ENTRESTO TO BID AND INCREASE LASIX TO 40MG IV BID. WE WILL OBTAIN AN ECHO. OTHERWISE, WE PLAN TO FOLLOW UP WITH AM LABS AND CONTINUE TO MONITOR. TIME SPENT ON CLINICAL ASSESSMENT, REVIEWING LABS AND IMAGING, DECISION MAKING, AND DOCUMENTATION GREATER THAN 75 MINUTES. - Past Medical Family Social History Past Med/Fam/Surg Hx: No changes since H&P Allergies: Allergies Sulfa (Sulfonamide Antibiotics) [SULFA] Allergy (Verified 12/14/16 13:55) ciprofloxacin [From Cipro] Adverse Reaction (Verified 04/04/18 11:29) - Review of Systems ROS: No change since H&P - Vital Signs and I&O's Vital Signs: Temperature 98.7 F Pulse Rate [Left Radial] 56 Pulse Rate 49 Respiratory Rate 20 Blood Pressure [Right Arm] 159/79 Blood Pressure 165/73 O2 Sat by Pulse Oximetry 98 Intake and Output: Intake & Output 04/13/20 04/14/20 04/15/20 04/16/20 11:59 11:59 11:59 11:59 Intake Total 300 / 300 671 / 671 538 / 538 Output Total 500 / 500 700 / 700 Balance 300 / 300 171 / 171 -162 / -162 - Physical Exam Oriented: Normal Eyes: Normal Ear: Normal Nose: Normal Throat: Normal Respiratory: Generalized, Diminished Cardiovascular: Edema : Normal Auscultation: Bowel Sounds: Normal Palpation: Normal Tenderness: Normal Skin: Normal Musculoskeletal: Normal Psychiatric: Normal Mood Description: Calm Affect: Normal Speech Pattern: Clear, Appropriate - Laboratory and Diagnostics Result Diagrams: 04/16/20 05:46 04/16/20 05:46 Labs: 04/14/20 09:12 Urine,Catheterized Urine Culture - Final Laboratory WBC 8.8 X10^3/uL (3.6-10.0) 04/16/20 05:46 RBC 2.80 X10^6/uL (3.5-5.4) L 04/16/20 05:46 Hgb 8.9 g/dL (12.0-16.0) L 04/16/20 05:46 Hct 26.8 % (36.0-47.0) L 04/16/20 05:46 MCV 95.8 fL (80.0-100.0) 04/16/20 05:46 MCH 31.9 pg (27.0-34.0) 04/16/20 05:46 MCHC 33.3 g/dL (33.0-35.0) 04/16/20 05:46 RDW 16.0 % (11.6-16.5) 04/16/20 05:46 Plt Count 357 X10^3/uL (150.0-450.0) 04/16/20 05:46 MPV 7.8 fL (7.4-11.0) 04/16/20 05:46 Neut % (Auto) 68.6 % (42.0-75.0) 04/16/20 05:46 Lymph % (Auto) 18.3 % (21.0-51.0) L 04/16/20 05:46 [place] % (Auto) 7.4 % (0.0-13.0) 04/16/20 05:46 Eos % (Auto) 4.7 % (0.9-2.9) H 04/16/20 05:46 Baso % (Auto) 1.0 % (0.2-1.0) 04/16/20 05:46 Neut # (Auto) 6.0 x10^3/uL (2.2-4.8) H 04/16/20 05:46 Lymph # (Auto) 1.6 X10^3/uL (1.3-2.9) 04/16/20 05:46 [place] # (Auto) 0.6 x10^3/uL (0.3-0.8) 04/16/20 05:46 Eos # (Auto) 0.4 x10^3/uL (0.0-0.2) H 04/16/20 05:46 Baso # (Auto) 0.1 X10^3/uL (0.0-0.1) 04/16/20 05:46 Absolute Nucleated RBC 0.0 /100WBC 04/16/20 05:46 PT 16.5 SECONDS (11.8-14.3) 04/15/20 05:35 INR Target Range - 04/15/20 05:35 INR 1.37 (0.8-1.3) H 04/15/20 05:35 APTT 33.1 SECONDS (22.9-36.5) 04/15/20 05:35 PTT Comment - 04/15/20 05:35 Sample Site Lr 04/14/20 07:31 ABG pH 7.380 (7.35-7.45) 04/14/20 07:31 ABG pCO2 54.0 mmHg (35.0-45.0) H* 04/14/20 07:31 ABG pO2 78.0 mmHg (80.0-100.0) L 04/14/20 07:31 ABG HCO3 31.9 mmol/L (22-26) H* 04/14/20 07:31 ABG O2 Saturation 95.0 % (90-100) 04/14/20 07:31 ABG Base Excess 5.4 mmol/L (-2.0-2.0) H 04/14/20 07:31 Kevin Test Pos 04/14/20 07:31 A-a Gradient 68.0 mmHg 04/14/20 07:31 FiO2 30.0 04/14/20 07:31 Blood Gas Comments Pt shayy well cdn 04/14/20 07:31 Sodium 139 mmol/L (136-145) 04/16/20 05:46 Corrected Sodium 141 mmol/L (136-145) 04/16/20 05:46 Potassium 4.4 mmol/L (3.5-5.1) 04/16/20 05:46 Chloride 105 mmol/L (98-107) 04/16/20 05:46 Carbon Dioxide 31.4 mmol/L (21-32) 04/16/20 05:46 BUN 49 mg/dL (7-18) H 04/16/20 05:46 Creatinine 1.99 mg/dL (0.55-1.02) H 04/16/20 05:46 Est GFR (MDRD) Af Amer 33 (>60) L 04/16/20 05:46 Est GFR (MDRD) Non-Af 27 (>60) L 04/16/20 05:46 Glucose 198 mg/dL (65-99) H 04/16/20 05:46 POC Glucose (mg/dL) 141 mg/dL (65-99) H 04/14/20 11:17 Calcium 10.5 mg/dL (8.5-10.1) H 04/16/20 05:46 Corrected Calcium 11.6 mg/dL (8.5-10.1) H 04/16/20 05:46 Magnesium 2.8 mg/dL (1.7-2.9) 04/16/20 05:46 Total Bilirubin 0.30 mg/dL (0.2-1.0) 04/16/20 05:46 AST 9 Units/L (15-37) L 04/16/20 05:46 ALT 17 Units/L (12-78) 04/16/20 05:46 Alkaline Phosphatase 140 Units/L (46-116) H 04/16/20 05:46 Creatine Kinase 115 Units/L (26-192) 04/14/20 13:30 CK-MB (CK-2) 1.4 ng/mL (0-4.0) 04/14/20 13:30 CK/CKMB % Calc 1.2 % (<4) 04/14/20 13:30 Troponin I 0.02 ng/mL (0-1.5) 04/14/20 13:30 B-Natriuretic Peptide 2770 pg/mL (0-79) H* 04/14/20 00:40 Total Protein 6.6 g/dL (6.4-8.2) 04/16/20 05:46 Albumin 2.6 g/dL (3.4-5.0) L 04/16/20 05:46 Globulin 4.0 g/dL (2.5-4.5) 04/16/20 05:46 Albumin/Globulin Ratio 0.7 Ratio (1.1-2.1) L 04/16/20 05:46 Specimen Type Catherized urine 04/14/20 09:12 Urine Color Yellow (YELLOW) 04/14/20 09:12 Urine Appearance Slightly hazy (CLEAR) 04/14/20 09:12 Urine pH 5.0 (5.0 - 8.0) 04/14/20 09:12 Ur Specific [place] 1.015 (1.000-1.030) 04/14/20 09:12 Urine Protein 3+ (NEGATIVE) 04/14/20 09:12 Urine Glucose (UA) Negative (NEGATIVE) 04/14/20 09:12 Urine Ketones Negative (NEGATIVE) 04/14/20 09:12 Urine Occult Blood 4+ (NEGATIVE) 04/14/20 09:12 Urine Nitrite Negative (NEGATIVE) 04/14/20 09:12 Urine Bilirubin Negative (NEGATIVE) 04/14/20 09:12 Urine Urobilinogen Normal (NORMAL) 04/14/20 09:12 Ur Leukocyte Esterase 2+ (NEGATIVE) 04/14/20 09:12 Urine RBC 10-20 /HPF (0-3) A 04/14/20 09:12 Urine WBC 20-30 /HPF (0-5) A 04/14/20 09:12 Ur Squamous Epith Cells Few /HPF (NEGATIVE) 04/14/20 09:12 Urine Bacteria Trace /HPF (NEGATIVE) 04/14/20 09:12 Hyaline Casts Many /LPF (NEGATIVE) 04/14/20 09:12 Ur Culture Indicated? Yes/culture set up 04/14/20 09:12 SARS CoV-2 RNA Rapid LEIGH Negative (NEGATIVE) 04/14/20 01:47 Blood Type A POSITIVE 04/14/20 00:40 Antibody Screen Negative 04/14/20 00:40 Crossmatch See Detail 04/14/20 00:40 - Plan (1) Pulmonary edema Status: Acute Qualifiers: Chronicity: chronic Qualified Code(s): J81.1 - Chronic pulmonary edema (2) Chronic renal insufficiency, stage I Status: Acute (3) Acute UTI Status: Acute (4) Hyperkalemia Status: Acute (5) Anemia Status: Acute Qualifiers: Anemia type: iron deficiency Iron deficiency anemia type: unspecified iron deficiency Qualified Code(s): D50.9 - Iron deficiency anemia, unspecified
[2020-04-16 11:04] VITALS: BP 136/65
== END 2020-04-16 13:55 | DRG 189 ==
LOC: ER 00:20 → OBS 07:09 → MED/SURG 14:38
PROVIDERS: ADMIT Internal Medicine; ATTEND Internal Medicine

== ENCOUNTER 2020-05-05 11:32 | Observation (INO) ==
[2020-05-05 11:48] VITALS: BMI 41.9
--- NOTE | 2020-05-05 12:17 | DR.GENAD ---
HPI Time Seen Time Seen by Provider: 05/05/20 12:03 PCP Primary Care Physician: Ross Complaint/Symptoms Chief Complaint:: Pt c/o feeling "tired". correction staff states pt has had low O2 sat since last night. She did not wear her CPAP last night. Pt on O2 at 2lpm at this time. COVID-19 Coronavirus risk:travel/contact w/high risk person: No Has patient experienced Coronavirus symptoms: No Nurses notes reviewed Nurses Notes Review: Yes Source History Provided: Patient and Longterm Mode of Arrival Mode of Arrival: Stretcher Timing Onset of Chief Complaint: 05/04/20 Came on: Gradually Duration Duration: Since Onset (Last PM) Severity Severity: Mild PMH PMH Past Medical History: Yes Past Medical History: Anemia, Anxiety, CHF, COPD, Coronary Artery Disease, CVA, Depression, Diabetes, Dialysis, Hypertension, LA and Renal Disease Past Surgical History: Yes Surgical History: Angioplasty/Stents, CABG/Valve Surgery and Hysterectomy Family History History of Family Medical Conditions: Yes Family Medical History: Diabetes Mellitus, Cancer, LA and Hypertension Social History Does patient currently use any type of tobacco product: No Have you used tobacco products in the last 12 months: No Type of Tobacco Use: None Does any household member use tobacco: No Alcohol Use: None Do you use any recreational Drugs:: No Lives With: Other Lives Where: Longterm Travel Risk Coronavirus risk:travel/contact w/high risk person: No Has patient experienced Coronavirus symptoms: No Infectious screening In the last 2 months have you had wt loss of >10#?: NO Have you traveled outside the country in the last 6 months?: No Isolation: Standard ROS Review of Systems Constitutional: No Symptoms Reported Eyes: No Symptoms Reported ENTM: No Symptoms Reported Respiratoy: See HPI and Other (Low O2 sat) Cardiovascular: No Symptoms Reported Gastrointestinal/Abdominal: No Symptoms Reported Genitourinary: No Symptoms Reported Neurological: No Symptoms Reported Musculoskeletal: No Symptoms Reported Integumentary: No Symptoms Reported Hematologic/Lymphatic: No Symptoms Reported Endocrine: No Symptoms Reported Psychiatric: No Symptoms Reported All Other Systems: Reviewed and Negative PE Vital Signs Vitals: Temperature 98.2 F Pulse Rate 63 Respiratory Rate 24 Blood Pressure [Right Arm] 136/65 Blood Pressure 135/56 O2 Sat by Pulse Oximetry 79 General Limitations: Other (Mild dementia) General Appearance: Alert and In No Apparent Distress Head Head Exam: Normal Inspection Eyes Eye exam: Normal Appearance ENT ENT Exam: Normal Exam External Ear Exam: Normal External Inspection Nose Exam: Normal Nose Exam Mouth Exam: Normal Inspection Throat Exam: Normal Inspection Neck Neck Exam: Normal Inspection Chest Chest Inspection: Normal Inspection Respiratory Respiratory Exam: Normal Lung Sounds Bilat Cardiovascular Cardiovascular Exam: Regular Rate Abdominal Exam Abdominal Exam: Normal Inspection Extremities Extremities Exam: Normal Inspection Back Back Exam: Normal Inspection Neurologic Neurological Exam: Alert Psychiatric Psychiatric Exam: Normal Affect Skin Skin Exam: Warm, Dry and Intact COURSE Treatment Treatment: Labs; chest X-ray; observation Reevaluation 1st: Improved Consultation Consultation Comments: Spoke with Dr. Hawkins [facility] Labs Reviewed Laboratory Results Reviewed?: Yes Result Diagrams: 05/05/20 11:58 05/05/20 11:58 Laboratory: WBC 5.7 X10^3/uL (3.6-10.0) 05/05/20 11:58 RBC 2.34 X10^6/uL (3.5-5.4) L 05/05/20 11:58 Hgb 7.5 g/dL (12.0-16.0) L 05/05/20 11:58 Hct 22.7 % (36.0-47.0) L 05/05/20 11:58 MCV 97.3 fL (80.0-100.0) 05/05/20 11:58 MCH 32.1 pg (27.0-34.0) 05/05/20 11:58 MCHC 33.0 g/dL (33.0-35.0) 05/05/20 11:58 RDW 16.2 % (11.6-16.5) 05/05/20 11:58 Plt Count 239 X10^3/uL (150.0-450.0) 05/05/20 11:58 MPV 8.2 fL (7.4-11.0) 05/05/20 11:58 Neut % (Auto) 79.5 % (42.0-75.0) H 05/05/20 11:58 Lymph % (Auto) 12.8 % (21.0-51.0) L 05/05/20 11:58 [place] % (Auto) 7.0 % (0.0-13.0) 05/05/20 11:58 Eos % (Auto) 0.3 % (0.9-2.9) L 05/05/20 11:58 Baso % (Auto) 0.4 % (0.2-1.0) 05/05/20 11:58 Neut # (Auto) 4.5 x10^3/uL (2.2-4.8) 05/05/20 11:58 Lymph # (Auto) 0.7 X10^3/uL (1.3-2.9) L 05/05/20 11:58 [place] # (Auto) 0.4 x10^3/uL (0.3-0.8) 05/05/20 11:58 Eos # (Auto) 0.0 x10^3/uL (0.0-0.2) 05/05/20 11:58 Baso # (Auto) 0.0 X10^3/uL (0.0-0.1) 05/05/20 11:58 Absolute Nucleated RBC 0.2 /100WBC 05/05/20 11:58 Sodium 138 mmol/L (136-145) 05/05/20 11:58 Corrected Sodium 139 mmol/L (136-145) 05/05/20 11:58 Potassium 4.3 mmol/L (3.5-5.1) 05/05/20 11:58 Chloride 103 mmol/L (98-107) 05/05/20 11:58 Carbon Dioxide 30.4 mmol/L (21-32) 05/05/20 11:58 BUN 33 mg/dL (7-18) H 05/05/20 11:58 Creatinine 1.84 mg/dL (0.55-1.02) H 05/05/20 11:58 Est GFR (MDRD) Af Amer 36 (>60) L 05/05/20 11:58 Est GFR (MDRD) Non-Af 29 (>60) L 05/05/20 11:58 Glucose 160 mg/dL (65-99) H 05/05/20 11:58 Calcium 9.4 mg/dL (8.5-10.1) 05/05/20 11:58 Corrected Calcium 10.4 mg/dL (8.5-10.1) H 05/05/20 11:58 Total Bilirubin 0.40 mg/dL (0.2-1.0) 05/05/20 11:58 AST 26 Units/L (15-37) 05/05/20 11:58 ALT 44 Units/L (12-78) 05/05/20 11:58 Alkaline Phosphatase 120 Units/L (46-116) H 05/05/20 11:58 B-Natriuretic Peptide 1280 pg/mL (0-79) H* 05/05/20 11:58 Total Protein 6.2 g/dL (6.4-8.2) L 05/05/20 11:58 Albumin 2.8 g/dL (3.4-5.0) L 05/05/20 11:58 Globulin 3.4 g/dL (2.5-4.5) 05/05/20 11:58 Albumin/Globulin Ratio 0.8 Ratio (1.1-2.1) L 05/05/20 11:58 XRAY XRAY Interpreted by: Radiologist X-ray Results: Chest X-ray stable cardiomegaly; pulmonary edema; no infiltrates Opioid Opioid Risk Tool Age (Taye box if 16-45): No History of Preadolescent Sexual Abuse: No Total: 0 Total Score Risk Category: Low Risk Copyright: Shade HARRINGTON predicting aberrant behaviors
[2020-05-05 12:19] LABS: BASOPHILS % (AUTO) 0.4 % (0.2-1.0); EOSINOPHILS % (AUTO) 0.3 % (0.9-2.9); HEMATOCRIT 22.7 % (36.0-47.0); HEMOGLOBIN 7.5 g/dL (12.0-16.0); LYMPHOCYTES # (AUTO) 0.7 X10^3/uL (1.3-2.9); LYMPHOCYTES % (AUTO) 12.8 % (21.0-51.0); MEAN CORPUSCULAR HEMOGLOBIN 32.1 pg (27.0-34.0); MEAN CORPUSCULAR VOLUME 97.3 fL (80.0-100.0); MEAN PLATELET VOLUME 8.2 fL (7.4-11.0); MONOCYTES # (AUTO) 0.4 x10^3/uL (0.3-0.8); NEUTROPHILS # (AUTO) 4.5 x10^3/uL (2.2-4.8); NEUTROPHILS % (AUTO) 79.5 % (42.0-75.0); PLATELET COUNT 239 X10^3/uL (150.0-450.0); RED BLOOD COUNT 2.34 X10^6/uL (3.5-5.4); RED CELL DISTRIBUTION WIDTH 16.2 % (11.6-16.5); WHITE BLOOD COUNT 5.7 X10^3/uL (3.6-10.0)
[2020-05-05 12:22] LABS: ALBUMIN 2.8 g/dL (3.4-5.0); CALCIUM 9.4 mg/dL (8.5-10.1); CARBON DIOXIDE 30.4 mmol/L (21-32); COR CA(FOR HYPOALB) 10.4 mg/dL (8.5-10.1); CREATININE 1.84 mg/dL (0.55-1.02); TOTAL PROTEIN 6.2 g/dL (6.4-8.2)
--- NOTE | 2020-05-05 12:45 | RAD ---
HISTORY:Weakness, shortness of breathStudy: Single view chestComparison:05/04/2020FINDINGS/IMPRESSION:There are stable findings of cardiomegaly with central vascular congestion and interstitial edema. No pneumothorax identified. Chronic sternotomy changes an d stable right IJ dialysis catheter.Electronically signed by: NANCY GIBSON (May 05, 2020 12:43:29)
[2020-05-05] MEDS ORDERED: LASIX IVP ONE ×2 (13:25→13:33)
[2020-05-05] MEDS ORDERED: NS 500 ML IV 500 ML IV ONE (14:43)
[2020-05-05] MEDS ORDERED: PHARMACY CONSULT LTC MEDICATIONS XX SCH (17:00)
[2020-05-05 20:38] LABS: HEMATOCRIT 23.1 % (36.0-47.0); HEMOGLOBIN 7.6 g/dL (12.0-16.0)
[2020-05-06 06:20] LABS: BASOPHILS % (AUTO) 0.7 % (0.2-1.0); EOSINOPHILS % (AUTO) 0.7 % (0.9-2.9); HEMOGLOBIN 7.3 g/dL (12.0-16.0); LYMPHOCYTES # (AUTO) 0.7 X10^3/uL (1.3-2.9); LYMPHOCYTES % (AUTO) 12.8 % (21.0-51.0); MEAN CORPUSCULAR HEMOGLOBIN 32.1 pg (27.0-34.0); MEAN CORPUSCULAR HGB CONC 33.2 g/dL (33.0-35.0); MEAN CORPUSCULAR VOLUME 96.7 fL (80.0-100.0); MEAN PLATELET VOLUME 8.3 fL (7.4-11.0); MONOCYTES # (AUTO) 0.4 x10^3/uL (0.3-0.8); MONOCYTES % (AUTO) 6.3 % (0.0-13.0); NEUTROPHILS # (AUTO) 4.6 x10^3/uL (2.2-4.8); NEUTROPHILS % (AUTO) 79.5 % (42.0-75.0); PLATELET COUNT 227 X10^3/uL (150.0-450.0); RED BLOOD COUNT 2.27 X10^6/uL (3.5-5.4); WHITE BLOOD COUNT 5.8 X10^3/uL (3.6-10.0)
[2020-05-06 06:35] LABS: ALBUMIN 2.8 g/dL (3.4-5.0); CALCIUM 9.1 mg/dL (8.5-10.1); CARBON DIOXIDE 28.7 mmol/L (21-32); COR CA(FOR HYPOALB) 10.1 mg/dL (8.5-10.1); CREATININE 1.87 mg/dL (0.55-1.02); TOTAL PROTEIN 6.2 g/dL (6.4-8.2)
[2020-05-06] MEDS ORDERED: LASIX IVP PRN (09:56)
[2020-05-06] MEDS ORDERED: BENADRYL INJ 50 MG VIAL IVP ONE (11:51)
--- NOTE | 2020-05-06 12:37 | DR.H&P ---
H&P - History & Physical for Day of: H&P Date: 05/05/20 - Chief Complaint Chief Complaint: SOB, FATIGUE, NON-PRODUCTIVE COUGH, WEAKNESS - History of Present Illness History of Present Illness: IS A 65 YEAR OLD PATIENT OF OURS. SHE IS A RESIDENT OF [facility]. SHE PRESENTED TO THE ER WITH COMPLAINTS OF SHORTNESS OF BREATH, FATIGUE, NON-PRODUCTIVE COUGH, AND WEAKNESS. ASSISTED STATES THAT HER OXYGEN SATURATIONS DID DROP TO THE 80s ON ROOM AIR. PATIENT WOULD NOT WEAR HER CPAP THE NIGHT BEFORE. SHE WAS PLACED ON NASAL CANNULA AT 2 LPM. SHE REPORTS THAT SHORTNESS OF BREATH IS WORSE ON EXERTION. HER PMH INCLUDES ANEMIA, CHF, COPD, CAD, CVA, DEPRESSION, DIABETES, DIALYSIS, HTN, NC, RENAL DISEASE, CARDIAC STENTS, CABG, AND HYSTERECTOMY. EXAMINATION REVEALED DIMINISHED LUNG SOUNDS THROUGHOUT AND 1+ PITTING EDEMA TO LOWER EXTREMITIES. ON ARRIVAL TO THE ER, VITALS WERE 98.2-59-35-93%NC-137/91. WHEN OXYGEN WAS REMOVED, HER SATURATIONS DROPPED TO 89%. LABS WERE OBTAINED. ABNORMAL LAB VALUES INCLUDE THE FOLLOWING: RBC 2.34, HGB 7.5, HCT 22.7, BUN 33, CREATININE 1.84, GLUCOSE 160, ALK PHOS 120, BNP 1280, TOTAL PROTEIN 6.2, ALBUMIN 2.8. A CHEST XRAY WAS OBTAINED AND REVEALED: There are stable findings of cardiomegaly with central vascular congestion and interstitial edema. No pneumothorax identified. Chronic sternotomy changes and stable right IJ dialysis catheter. IN THE ER, SHE WAS GIVEN LASIX 40MG IV X 1 DOSE. SHE DENIED SIGNIFICANT IMPROVEMENT IN SYMPTOMS. SHE WAS ADMITTED TO THE HOSPITAL FOR FURTHER EVALUATION AND TREATMENT OF ANEMIA, HYPOXIA, AND CHF EXACERBATION. WE WILL TRANSFUSE TWO UNITS OF PACKED RED BLOOD CELLS. WE WILL GIVE LASIX 40MG IV IN BETWEEN UNITS OF BLOOD. WE WILL ALSO RESUME HER HOME MEDICATIONS OF CARVEDILOL, ATORVASTATIN, LEVOTHYROXINE, AMIODARONE, SERTRALINE, ENTRESTO, QUETIAPINE, TYLENOL #3, NOVOLIN R INSULIN SLIDING SCALE, NOVASC, MILK OF MAGNESIA PRN, LASIX 40MG PO BID, LEVETIRACETAM, FOLIC ACID, FERROCITE, AND VITAMIN D3. OTHERWISE, WE PLAN TO FOLLOW UP WITH AM LABS AND CONTINUE TO MONITOR. TIME SPENT ON CLINICAL ASSESSMENT, REVIEWING LABS AND IMAGING, DECISION MAKING, DOCUMENTATION WAS GREATER THAN 75 MINUTES. - Past Medical History Past Medical History: NC, Coronary Artery Disease, Hypertension, Diabetes, Renal Disease, Dialysis, Depression, Anxiety, Anemia, CVA, COPD, CHF - Past Surgical History Surgical History: Angioplasty/Stents, CABG/Valve Surgery, Hysterectomy - Family History Family Medical History: Diabetes Mellitus, Cancer, NC, Hypertension - Social History Does patient currently use any type of tobacco product: No Have you used tobacco products in the last 12 months: No Type of Tobacco Use: None Does any household member use tobacco: No Alcohol Use: None Drug Use: None - Medications Home Medications: Sulfa (Sulfonamide Antibiotics) [SULFA] Allergy (Verified 12/14/16 13:55) ciprofloxacin [From Cipro] Adverse Reaction (Verified 04/04/18 11:29) CONTINUE taking the following medications furosemide [Lasix] 40 mg PO BID 05/05/20 [History] insulin regular human [Novolin R Regular U-100 Insuln] 1 sliding scale dose SUBCUT USEASDIRECTD 05/05/20 [History] hidasxaaj-ymdhup-sinise-petrol [Preparation H Rapid Rlf-Lidocn] 1 applic TOPICAL QID PRN 05/05/20 [History] magnesium hydroxide [Milk Of Magnesia Concentrated] 30 ml PO QHS PRN 05/05/20 [History] witch ellen [Hemorrhoidal (witch ellen)] 1 pad TOPICAL QID 05/05/20 [History] - Review of Systems Constitutional: Weakness, Other (FATIGUE) Eyes: No Symptoms Reported ENT: No Symptoms Reported Respiratory: Cough, Shortness of Breath, SOB with Excertion. denies: Sputum, Wheezing Cardiovascular: Edema (LOWER EXTREMITY SWELLING ) Gastrointestinal: No Symptoms Reported Genitourinary: No Symptoms Reported Musculoskeletal: No Symptoms Reported Skin: No Symptoms Reported Neurological: Weakness - Physical Exam Vital Signs: Temperature 100 F Pulse Rate [Right Radial] 64 Pulse Rate 67 Respiratory Rate 22 Blood Pressure [Right Arm] 166/72 Blood Pressure 171/77 O2 Sat by Pulse Oximetry 98 Oriented: Normal Eyes: Normal Ear: Normal Nose: Normal Throat: Normal Respiratory: Diminished Throughout Cardiovascular: Edema (BLE 1+ PITTING EDEMA ) : Normal Auscultation: Bowel Sounds: Normal Palpation: Normal Tenderness: Normal Skin: Normal Musculoskeletal: Normal Psychiatric: Normal Mood Description: Calm Affect: Normal Speech Pattern: Clear - Assessment/Plan (1) Anemia, unspecified Qualifiers: Anemia type: iron deficiency Iron deficiency anemia type: unspecified iron deficiency Qualified Code(s): D50.9 - Iron deficiency anemia, unspecified Status: Acute (2) Hypoxia Status: Acute Plan: ADMIT, TRANSFUSE 2 UNITS PRBC, LASIX 40MG IV IN BETWEEN UNITS OF BLOOD. RESUME HOME MEDICATIONS EXCEPT BLOOD THINNERS (3) CHF (congestive heart failure) Qualifiers: Heart failure type: combined systolic and diastolic Heart failure chronicity: acute on chronic Qualified Code(s): I50.43 - Acute on chronic combined systolic (congestive) and diastolic (congestive) heart failure Status: Acute (4) COPD (chronic obstructive pulmonary disease) Qualifiers: COPD type: unspecified COPD Qualified Code(s): J44.9 - Chronic obstructive pulmonary disease, unspecified Status: Chronic (5) CAD (coronary artery disease) Qualifiers: Coronary Disease-Associated Artery/Lesion type: [place] artery [place] vs. 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 fdc use Diabetes mellitus complication status: with hyperglycemia Qualified Code(s): E11.65 - Type 2 diabetes mellitus with hyperglycemia; Z79.4 - half-way (current) use of insulin Status: Chronic (8) HTN (hypertension) Qualifiers: Hypertension type: essential hypertension Qualified Code(s): I10 - Essential (primary) hypertension Status: Chronic (9) Hyperlipidemia Qualifiers: Hyperlipidemia type: mixed hyperlipidemia Qualified Code(s): E78.2 - Mixed hyperlipidemia Status: Chronic - Allergies Allergies/Adverse Reactions: Allergies Allergy/AdvReac Type Severity Reaction Status Date / Time Sulfa (Sulfonamide Allergy Verified 12/14/16 13:55 Antibiotics) [SULFA] ciprofloxacin [From Cipro] AdvReac Verified 04/04/18 11:29
[2020-05-06] MEDS: TYLENOL 325 MG TAB PO PRN (12:46)
--- NOTE | 2020-05-06 13:05 | PCM.PROG ---
Progress Note - Progress Note for Day of Date of Exam: 05/06/20 - Subjective Subjective: IS BEING TREATED FOR ANEMIA, HYPOXIA, CHF, AND ACUTE BRONCHITIS. SHE HAS A PMH OF ANEMIA, CHF, COPD, CAD, CVA, DEPRESSION, DIABETES, DIALYSIS, HTN, [place], RENAL DISEASE, CARDIAC STENTS, CABG, AND HYSTERECTOMY. TODAY, SHE IS ALERT AND ORIENTED, SITTING UP IN BED ON MORNING ROUNDS. SHE CONTINUES WITH COMPLAINTS OF SHORTNESS OF BREATH, WEAKNESS, FATIGUE, AND NON-PRODUCTIVE COUGH TODAY. ON EXAMINATION, HEART IS REGULAR IN RATE AND RHYTHM. BILATERAL LUNGS ARE NOTED WITH DIMINISHED LUNG SOUND THROUGHOUT. ABDOMEN IS ROUND, SOFT, AND NON-TENDER WITH NORMAL BOWEL SOUNDS NOTED IN ALL QUADRANTS. CARY CATHETER NOTED TO BEDSIDE DRAINAGE. THERE IS A CAST NOTED TO THE LEFT ARM DUE TO A COMMIN UTED ULNAR STYLOID FRACTURE FROM 03/15/20. BILATERAL LOWER EXTREMITIES ARE NOTED WITH TRACE EDEMA. HER VITALS THIS MORNING ARE: 100.1-64-22-98%NC-166/72. SHE IS CURRENTLY ON NASAL CANNAL AT 5 LITERS/MINUTE. HER SATURATIONS DID DROP TO THE 80s WHILE USING THE CPAP THROUGHOUT THE NIGHT. LABS WERE OBTAINED THIS MORNING. ABNORMAL LABS INCLUDE THE FOLLOWING: RBC 2.27, HGB 7.3, HCT 22.0, BUN 37, CREATININE 1.87, GLUCOSE 146, BNP 1030, TOTAL PROTEIN 6.2, ALBUMIN 2.8. A CHEST XRAY WAS REPEATED THIS MORNING AND REVEALED: NO SIGNIFICANT CHANGE. BILATERAL AIRSPACE AND INTERSTITIAL OPACITIES REMAIN. WE WILL TRANSFUSE HER TWO UNITS OF BLOOD TODAY. WE WILL OBTAIN AN ABG, URINALYSIS, AND BLOOD CULTURES DUE TO ELEVATED TEMPERATURE. OTHERWISE, WE PLAN TO FOLLOW UP WITH AM LABS AND CONTINUE TO MONITOR. TIME SPENT ON CLINICAL ASSESSMENT, REVIEWING LABS AND IMAGING, DECISION MAKING, DOCUMENTATION WAS GREATER THAN 45 MINUTES. - Past Medical Family Social History Past Med/Fam/Surg Hx: No changes since H&P Allergies: Allergies Sulfa (Sulfonamide Antibiotics) [SULFA] Allergy (Verified 12/14/16 13:55) ciprofloxacin [From Cipro] Adverse Reaction (Verified 04/04/18 11:29) - Review of Systems ROS: No change since H&P - Vital Signs and I&O's Vital Signs: Temperature 99.6 F Pulse Rate [Right Radial] 58 Pulse Rate 67 Respiratory Rate 22 Blood Pressure [Right Arm] 151/62 Blood Pressure 171/77 O2 Sat by Pulse Oximetry 96 Intake and Output: Intake & Output 05/04/20 05/05/20 05/06/20 05/07/20 11:59 11:59 11:59 11:59 Intake Total 1340 / 1340 Output Total 1320 / 1320 Balance - Physical Exam Oriented: Normal Eyes: Normal Ear: Normal Nose: Normal Throat: Normal Respiratory: Generalized, Diminished Cardiovascular: Edema (BLE TRACE EDEMA ) : Normal Auscultation: Bowel Sounds: Normal Palpation: Normal Tenderness: Normal Skin: Normal Musculoskeletal: Normal Psychiatric: Normal Mood Description: Calm Affect: Normal Speech Pattern: Clear - Laboratory and Diagnostics Result Diagrams: 05/06/20 05:24 05/06/20 05:24 Labs: Laboratory WBC 5.8 X10^3/uL (3.6-10.0) 05/06/20 05:24 RBC 2.27 X10^6/uL (3.5-5.4) L 05/06/20 05:24 Hgb 7.3 g/dL (12.0-16.0) L 05/06/20 05:24 Hct 22.0 % (36.0-47.0) L 05/06/20 05:24 MCV 96.7 fL (80.0-100.0) 05/06/20 05:24 MCH 32.1 pg (27.0-34.0) 05/06/20 05:24 MCHC 33.2 g/dL (33.0-35.0) 05/06/20 05:24 RDW 16.0 % (11.6-16.5) 05/06/20 05:24 Plt Count 227 X10^3/uL (150.0-450.0) 05/06/20 05:24 MPV 8.3 fL (7.4-11.0) 05/06/20 05:24 Neut % (Auto) 79.5 % (42.0-75.0) H 05/06/20 05:24 Lymph % (Auto) 12.8 % (21.0-51.0) L 05/06/20 05:24 [place] % (Auto) 6.3 % (0.0-13.0) 05/06/20 05:24 Eos % (Auto) 0.7 % (0.9-2.9) L 05/06/20 05:24 Baso % (Auto) 0.7 % (0.2-1.0) 05/06/20 05:24 Neut # (Auto) 4.6 x10^3/uL (2.2-4.8) 05/06/20 05:24 Lymph # (Auto) 0.7 X10^3/uL (1.3-2.9) L 05/06/20 05:24 [place] # (Auto) 0.4 x10^3/uL (0.3-0.8) 05/06/20 05:24 Eos # (Auto) 0.0 x10^3/uL (0.0-0.2) 05/06/20 05:24 Baso # (Auto) 0.0 X10^3/uL (0.0-0.1) 05/06/20 05:24 Absolute Nucleated RBC 0.1 /100WBC 05/06/20 05:24 Sodium 138 mmol/L (136-145) 05/06/20 05:24 Corrected Sodium 139 mmol/L (136-145) 05/06/20 05:24 Potassium 4.1 mmol/L (3.5-5.1) 05/06/20 05:24 Chloride 103 mmol/L (98-107) 05/06/20 05:24 Carbon Dioxide 28.7 mmol/L (21-32) 05/06/20 05:24 BUN 37 mg/dL (7-18) H 05/06/20 05:24 Creatinine 1.87 mg/dL (0.55-1.02) H 05/06/20 05:24 Est GFR (MDRD) Af Amer 35 (>60) L 05/06/20 05:24 Est GFR (MDRD) Non-Af 29 (>60) L 05/06/20 05:24 Glucose 146 mg/dL (65-99) H 05/06/20 05:24 POC Glucose (mg/dL) 157 mg/dL (65-99) H 05/06/20 12:09 Calcium 9.1 mg/dL (8.5-10.1) 05/06/20 05:24 Corrected Calcium 10.1 mg/dL (8.5-10.1) 05/06/20 05:24 Total Bilirubin 0.30 mg/dL (0.2-1.0) 05/06/20 05:24 AST 30 Units/L (15-37) 05/06/20 05:24 ALT 50 Units/L (12-78) 05/06/20 05:24 Alkaline Phosphatase 113 Units/L (46-116) 05/06/20 05:24 B-Natriuretic Peptide 1030 pg/mL (0-79) H* 05/06/20 05:24 Total Protein 6.2 g/dL (6.4-8.2) L 05/06/20 05:24 Albumin 2.8 g/dL (3.4-5.0) L 05/06/20 05:24 Globulin 3.4 g/dL (2.5-4.5) 05/06/20 05:24 Albumin/Globulin Ratio 0.8 Ratio (1.1-2.1) L 05/06/20 05:24 Blood Type A POSITIVE 05/05/20 14:00 Antibody Screen Negative 05/05/20 14:00 Crossmatch See Detail 05/05/20 14:00 - Plan (1) Anemia, unspecified Status: Acute Qualifiers: Anemia type: iron deficiency Iron deficiency anemia type: unspecified iron deficiency Qualified Code(s): D50.9 - Iron deficiency anemia, unspecified (2) Hypoxia Status: Acute Plan: TRANSFUSE 2 UNITS PRBC, LASIX 40MG IV IN BETWEEN UNITS OF BLOOD. RESUME H OME MEDICATIONS EXCEPT BLOOD THINNERS (3) CHF (congestive heart failure) Status: Acute Qualifiers: Heart failure type: combined systolic and diastolic Heart failure chronicity: acute on chronic Qualified Code(s): I50.43 - Acute on chronic combined systolic (congestive) and diastolic (congestive) heart failure (4) Acute bronchitis Status: Acute Qualifiers: Bronchitis organism: unspecified organism Qualified Code(s): J20.9 - Acute bronchitis, unspecified (5) COPD (chronic obstructive pulmonary disease) Status: Chronic Qualifiers: COPD type: unspecified COPD Qualified Code(s): J44.9 - Chronic obstructive pulmonary disease, unspecified (6) CAD (coronary artery disease) Status: Chronic Qualifiers: Coronary Disease-Associated Artery/Lesion type: [place] artery [place] vs. 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
[2020-05-06 14:03] LABS: ABG BASE EXCESS 6.7 mmol/L (-2.0-2.0)
[2020-05-06 14:04] LABS: ABG ALLEN TEST POS; ABG HCO3 31.9 mmol/L (22-26)
[2020-05-06 17:49] LABS: BILIRUBIN,URINE NEGATIVE (NEGATIVE); BLOOD/HEMOGLOBIN,URINE 3+ (NEGATIVE); GLUCOSE, URINE NEGATIVE (NEGATIVE); KETONES,URINE NEGATIVE (NEGATIVE); LEUKOCYTE ESTERASE ,URINE 1+ (NEGATIVE); NITRITES,URINE NEGATIVE (NEGATIVE); PROTEIN,URINE 4+ (NEGATIVE); UROBILINOGEN,URINE NORMAL (NORMAL)
[2020-05-06 18:08] LABS: APPEARANCE,URINE CLOUDY (CLEAR); COLOR,URINE YELLOW (YELLOW)
[2020-05-06 18:09] LABS: AMORPHOUS SEDIMENT,UR 1+ /HPF (NEGATIVE); BACTERIA,URINE TRACE /HPF (NEGATIVE); GRANULAR CASTS,URINE FEW /LPF (NEGATIVE); MUCUS,URINE RARE /HPF (NEGATIVE); SQUAMOUS EPITHELIAL CELL,UR MODERATE /HPF (NEGATIVE); YEAST,URINE FEW /HPF (NEGATIVE)
[2020-05-06] MEDS ORDERED: HumuLIN R SUBCUT PRN (18:30)
[2020-05-06] MEDS ORDERED: HumuLIN R ONE (18:33)
[2020-05-06] MEDS ORDERED: SNACK - Diabetic Appropriate PO SCH (20:00)
[2020-05-06 22:11] LABS: HEMATOCRIT 26.6 % (36.0-47.0); HEMOGLOBIN 8.7 g/dL (12.0-16.0)
[2020-05-07] MEDS: TYLENOL 325 MG TAB PO PRN (03:10)
[2020-05-07 06:21] LABS: BASOPHILS % (AUTO) 0.4 % (0.2-1.0); EOSINOPHILS # (AUTO) 0.1 x10^3/uL (0.0-0.2); EOSINOPHILS % (AUTO) 1.6 % (0.9-2.9); HEMATOCRIT 25.9 % (36.0-47.0); HEMOGLOBIN 8.8 g/dL (12.0-16.0); LYMPHOCYTES % (AUTO) 17.3 % (21.0-51.0); MEAN CORPUSCULAR HEMOGLOBIN 31.5 pg (27.0-34.0); MEAN CORPUSCULAR HGB CONC 34.1 g/dL (33.0-35.0); MEAN CORPUSCULAR VOLUME 92.4 fL (80.0-100.0); MEAN PLATELET VOLUME 8.3 fL (7.4-11.0); MONOCYTES # (AUTO) 0.4 x10^3/uL (0.3-0.8); MONOCYTES % (AUTO) 6.8 % (0.0-13.0); NEUTROPHILS # (AUTO) 4.1 x10^3/uL (2.2-4.8); NEUTROPHILS % (AUTO) 73.9 % (42.0-75.0); PLATELET COUNT 199 X10^3/uL (150.0-450.0); RED CELL DISTRIBUTION WIDTH 17.2 % (11.6-16.5); WHITE BLOOD COUNT 5.5 X10^3/uL (3.6-10.0)
[2020-05-07 06:40] LABS: ALBUMIN 2.6 g/dL (3.4-5.0); CALCIUM 8.5 mg/dL (8.5-10.1); CARBON DIOXIDE 28.2 mmol/L (21-32); COR CA(FOR HYPOALB) 9.6 mg/dL (8.5-10.1); CREATININE 2.08 mg/dL (0.55-1.02); TOTAL PROTEIN 6.2 g/dL (6.4-8.2)
[2020-05-07 08:05] VITALS: BP 135/61
== END 2020-05-07 11:25 ==
LOC: MED/SURG 11:32 → ER 11:32 → MED/SURG 15:30
PROVIDERS: ADMIT Internal Medicine; ATTEND Internal Medicine
DX: R06.02 Shortness of breath; J44.1 Chronic obstructive pulmonary disease with (acute) exacerbation; Z99.2 Dependence on renal dialysis; D50.8 Other iron deficiency anemias; F32.89 Other specified depressive episodes; E11.65 Type 2 diabetes mellitus with hyperglycemia; I10 Essential (primary) hypertension; J20.9 Acute bronchitis, unspecified; I50.43 Acute on chronic combined systolic (congestive) and diastolic (congestive) heart failure; R13.12 Dysphagia, oropharyngeal phase; E78.2 Mixed hyperlipidemia; I25.118 Atherosclerotic heart disease of native coronary artery with other forms of angina pectoris; Z79.4 Long term (current) use of insulin

== ENCOUNTER 2020-05-11 08:15 | Observation (INO) ==
[2020-05-11] MEDS ORDERED: SOLU-Medrol 125 MG VIAL IVP ONE (08:39)
[2020-05-11] MEDS ORDERED: LASIX IVP ONE ×2 (08:39→08:49)
[2020-05-11] MEDS ORDERED: DUONEB 0.5 MG/3 MG (3 mL) NEB ONE ×2 (08:39→08:58)
[2020-05-11] MEDS ORDERED: SOLU-Medrol 125 MG VIAL ONE (08:49)
[2020-05-11 08:55] LABS: ABG ALLEN TEST POS; ABG BASE EXCESS 4.3 mmol/L (-2.0-2.0); ABG HCO3 29.8 mmol/L (22-26)
--- NOTE | 2020-05-11 09:13 | RAD ---
HISTORYSOB, LOW O2 SATSSTUDYCHEST, 1 VIEWCOMPARISONPortable chest May 06, 2020.FINDINGSThe trachea is midline. The cardiac silhouette is mildly enlarged but stable compared to May 06, 2020. There are sternotomy wires present.. Right double-lumen internal jugular line remains in place. The lungs are clear without focal infiltrate or effusion. But there is central vascular congestion right greater than left increased when compared to May 06, 2020. The bony thorax is unremarkable.IMPRESSIONCardiomegaly postsurgical chest with increasing vascular congestion when compared to the studies of 04 May and May 07, 2019. No effusions or alveolar infiltrates are observed. Double-lumen right internal jugular line remains in place.Electronically signed by: MICHAEL GURROLA (May 11, 2020 09:11:30)
[2020-05-11 09:18] LABS: BASOPHILS % (AUTO) 0.5 % (0.2-1.0); EOSINOPHILS # (AUTO) 0.2 x10^3/uL (0.0-0.2); EOSINOPHILS % (AUTO) 3.1 % (0.9-2.9); HEMATOCRIT 25.7 % (36.0-47.0); HEMOGLOBIN 8.6 g/dL (12.0-16.0); LYMPHOCYTES # (AUTO) 0.7 X10^3/uL (1.3-2.9); LYMPHOCYTES % (AUTO) 14.7 % (21.0-51.0); MEAN CORPUSCULAR HGB CONC 33.5 g/dL (33.0-35.0); MEAN CORPUSCULAR VOLUME 92.6 fL (80.0-100.0); MEAN PLATELET VOLUME 8.3 fL (7.4-11.0); MONOCYTES # (AUTO) 0.3 x10^3/uL (0.3-0.8); MONOCYTES % (AUTO) 6.6 % (0.0-13.0); NEUTROPHILS # (AUTO) 3.8 x10^3/uL (2.2-4.8); NEUTROPHILS % (AUTO) 75.1 % (42.0-75.0); PLATELET COUNT 239 X10^3/uL (150.0-450.0); RED BLOOD COUNT 2.77 X10^6/uL (3.5-5.4)
[2020-05-11 09:45] LABS: CKMB % 1.7 % (<4); CREATINE KINASE 60 Units/L (26-192); CREATINE KINASE MB < 1.0 ng/mL (0-4.0); TROPONIN I < 0.02 ng/mL (0-1.5)
--- NOTE | 2020-05-11 12:26 | DR.GENAD ---
HPI Time Seen Time Seen by Provider: 05/11/20 08:39 PCP Primary Care Physician: KAYLIN HPI Comment HPI Comment: Patient presents from the [place] with the complaint of sob. patient with h/o COPD and is to wear CPAP, but reportedly is non compliant. O2 sat was in the 70s today with sob and so [place] sent patient here for eval. Complaint/Symptoms Chief Complaint:: EZIO FROM [facility] CALLS AND STATES PT'S O2 SAT WAS IN THE 70'S ON HER CPAP. SHE REPORTS THAT PT. IS NON COMPLIANT WITH WEARING CPAP. UPON ARRIVAL TO THE ER, PT.'S O2 SAT 94% ON N/C @ 4LPM. PT. C/O SOB. ABDOMEN DISTENDED. PT. HAS AN INDWELLING CARY CATHETHER. COVID-19 Coronavirus risk:travel/contact w/high risk person: No Has patient experienced Coronavirus symptoms: No Source History Provided: [place] Mode of Arrival Mode of Arrival: Stretcher Timing Onset of Chief Complaint: 05/11/20 PMH PMH Past Medical History: Yes Past Medical History: Anemia, Anxiety, CHF, COPD, Coronary Artery Disease, CVA, Depression, Diabetes, Dialysis, Hypertension, IA and Renal Disease Past Surgical History: Yes Surgical History: Angioplasty/Stents, CABG/Valve Surgery and Hysterectomy Family History History of Family Medical Conditions: Yes Family Medical History: Diabetes Mellitus, Cancer, [place] and Hypertension Social History Does patient currently use any type of tobacco product: No Have you used tobacco products in the last 12 months: No Type of Tobacco Use: None Does any household member use tobacco: No Alcohol Use: None Do you use any recreational Drugs:: No Lives Where: [place] Travel Risk Coronavirus risk:travel/contact w/high risk person: No Has patient experienced Coronavirus symptoms: No Infectious screening In the last 2 months have you had wt loss of >10#?: NO Have you had fever, night sweats or hemotysis?: No Have you traveled outside the country in the last 6 months?: No Isolation: Standard ROS Review of Systems Constitutional: See HPI Respiratoy: See HPI All Other Systems: Reviewed and Negative PE Vital Signs Vitals: Temperature 98.2 F Pulse Rate 56 Respiratory Rate 23 Blood Pressure [Right Arm] 135/61 Blood Pressure 156/67 O2 Sat by Pulse Oximetry 89 General Limitations: No Limitations General Appearance: Alert and In Distress (mild respiratory) Head Head Exam: Normal Inspection, Atraumatic and Normocephalic Eyes Eye exam: Normal Appearance and EOMI ENT ENT Exam: Normal Exam Neck Neck Exam: Normal Inspection and Trachea Midline Chest Chest Inspection: Normal Inspection and Symmetric Chest Wall Rise Respiratory Respiratory Exam: Bilateral: Wheezing, Bilateral: Rales and Bilateral: Rhonchi Cardiovascular Cardiovascular Exam: Regular Rate, Normal Rhythm and Normal Heart Sounds Abdominal Exam Abdominal Exam: Normal Inspection, Normal Bowel Sounds and Soft Extremities Extremities Exam: Normal Inspection and Edema Neurologic Neurological Exam: Alert and Oriented X3 Psychiatric Psychiatric Exam: Normal Affect and Normal Mood Skin Skin Exam: Warm, Dry and Intact COURSE Treatment Treatment: patient stable with supplemental oxygen. O2 sat improved to 92-94% on 4L via [place] Consultation Consultation Comments: Spoke with Dr. Randolph who accepts the patient for admission ROR Labs Reviewed Laboratory Results Reviewed?: Yes Result Diagrams: 05/11/20 08:49 Laboratory: WBC 5.0 X10^3/uL (3.6-10.0) 05/11/20 08:49 RBC 2.77 X10^6/uL (3.5-5.4) L 05/11/20 08:49 Hgb 8.6 g/dL (12.0-16.0) L 05/11/20 08:49 Hct 25.7 % (36.0-47.0) L 05/11/20 08:49 MCV 92.6 fL (80.0-100.0) 05/11/20 08:49 MCH 31.0 pg (27.0-34.0) 05/11/20 08:49 MCHC 33.5 g/dL (33.0-35.0) 05/11/20 08:49 RDW 17.0 % (11.6-16.5) H 05/11/20 08:49 Plt Count 239 X10^3/uL (150.0-450.0) 05/11/20 08:49 MPV 8.3 fL (7.4-11.0) 05/11/20 08:49 Neut % (Auto) 75.1 % (42.0-75.0) H 05/11/20 08:49 Lymph % (Auto) 14.7 % (21.0-51.0) L 05/11/20 08:49 [place] % (Auto) 6.6 % (0.0-13.0) 05/11/20 08:49 Eos % (Auto) 3.1 % (0.9-2.9) H 05/11/20 08:49 Baso % (Auto) 0.5 % (0.2-1.0) 05/11/20 08:49 Neut # (Auto) 3.8 x10^3/uL (2.2-4.8) 05/11/20 08:49 Lymph # (Auto) 0.7 X10^3/uL (1.3-2.9) L 05/11/20 08:49 [place] # (Auto) 0.3 x10^3/uL (0.3-0.8) 05/11/20 08:49 Eos # (Auto) 0.2 x10^3/uL (0.0-0.2) 05/11/20 08:49 Baso # (Auto) 0.0 X10^3/uL (0.0-0.1) 05/11/20 08:49 Absolute Nucleated RBC 0.1 /100WBC 05/11/20 08:49 Sample Site Rrad 05/11/20 08:50 ABG pH 7.410 (7.35-7.45) 05/11/20 08:50 ABG pCO2 47.0 mmHg (35.0-45.0) H 05/11/20 08:50 ABG pO2 61.0 mmHg (80.0-100.0) L 05/11/20 08:50 ABG HCO3 29.8 mmol/L (22-26) H 05/11/20 08:50 ABG O2 Saturation 91.0 % (90-100) 05/11/20 08:50 ABG Base Excess 4.3 mmol/L (-2.0-2.0) H 05/11/20 08:50 Kevin Test Pos 05/11/20 08:50 A-a Gradient 137.0 mmHg 05/11/20 08:50 FiO2 36.0 05/11/20 08:50 Blood Gas Comments Pt shayy well elj 05/11/20 08:50 Creatine Kinase 60 Units/L (26-192) 05/11/20 08:49 CK-MB (CK-2) < 1.0 ng/mL (0-4.0) 05/11/20 08:49 CK/CKMB % Calc 1.7 % (<4) 05/11/20 08:49 Troponin I < 0.02 ng/mL (0-1.5) 05/11/20 08:49 B-Natriuretic Peptide 1260 pg/mL (0-79) H* 05/11/20 08:49 XRAY X-ray Results: HISTORY SOB, LOW O2 SATS STUDY CHEST, 1 VIEW COMPARISON Portable chest May 06, 2020. FINDINGS The trachea is midline. The cardiac silhouette is mildly enlarged but stable compared to May 06, 2020. There are sternotomy wires present.. Right double- lumen internal jugular line remains in place. The lungs are clear without focal infiltrate or effusion. But there is central vascular congestion right greater than left increased when compared to May 06, 2020. The bony thorax is unremarkable. IMPRESSION Cardiomegaly postsurgical chest with increasing vascular congestion when compared to the studies of 04 May and May 07, 2019. No effusions or alveolar infiltrates are observed. Double-lumen right internal jugular line remains in place. Electronically signed by: MICHAEL GURROLA (May 11, 2020 09:11:30) EKG Rate: 59 [place]: Normal Rhythm: SB Block: 1 ST: Nonsp Opioid Opioid Risk Tool Age (Taye box if 16-45): No History of Preadolescent Sexual Abuse: No Total: 0 Total Score Risk Category: Low Risk Copyright: Sh[place] predicting aberrant behaviors Diagnosis Discharge Problem: CHF (congestive heart failure)
[2020-05-11] MEDS ORDERED: REMDESIVIR 200 MG in NS 250 ML IV 250 ML IV ONE (13:57)
[2020-05-11] MEDS ORDERED: PHARMACY CONSULT LTC MEDICATIONS XX SCH (14:00)
[2020-05-11] MEDS ORDERED: FERROUS FUMARATE PO SCH (14:00)
[2020-05-11] MEDS: NORVASC TAB 5 MG PO SCH (14:00)
[2020-05-11] MEDS: DUONEB 0.5 MG/3 MG (3 mL) NEB SCH ×2 (15:15→20:15)
[2020-05-11] MEDS ORDERED: PULMICORT NEB TX 0.5 MG NEB ONE (19:15)
[2020-05-11] MEDS ORDERED: ZOLOFT ONE (20:04)
[2020-05-11] MEDS: PULMICORT NEB TX 0.5 MG NEB SCH (20:16)
[2020-05-11] MEDS: LIPITOR TAB 40 MG PO SCH (20:25)
[2020-05-11] MEDS: ELIQUIS PO SCH (20:25)
[2020-05-11] MEDS: COREG TAB 12.5 MG PO SCH (20:25)
[2020-05-11] MEDS: ZOLOFT PO SCH (20:25)
[2020-05-11] MEDS: KEPPRA TAB 500 MG PO SCH (20:25)
--- NOTE | 2020-05-12 04:25 | RAD ---
PROCEDURE: Chest X-ray 1 View .HISTORY: COVID-19, hypoxia, and congestive heart failure.TECHNIQUE: AP view .COMPARISON: 05/11/2020.TECHNICAL QUALITY: Satisfactory .FINDINGS:Unchanged right internal jugular dialysis catheter.Unchanged mild cardiomegaly with previous sternotomy.Increased central vascularity bilaterally similar to previous study.Increased perihilar interstitial markings with mild improvement. No definite edema, pleural fluid, or pneumothorax.IMPRESSION:Minimally improved congestive failure.Electronically signed by: Ben Clark (May 12, 2020 04:22:45)
[2020-05-12 04:33] LABS: BASOPHILS % (AUTO) 0.3 % (0.2-1.0); HEMOGLOBIN 8.8 g/dL (12.0-16.0); LYMPHOCYTES # (AUTO) 0.5 X10^3/uL (1.3-2.9); LYMPHOCYTES % (AUTO) 12.8 % (21.0-51.0); MEAN CORPUSCULAR HEMOGLOBIN 30.5 pg (27.0-34.0); MEAN CORPUSCULAR HGB CONC 32.5 g/dL (33.0-35.0); MEAN CORPUSCULAR VOLUME 93.8 fL (80.0-100.0); MEAN PLATELET VOLUME 8.7 fL (7.4-11.0); MONOCYTES # (AUTO) 0.2 x10^3/uL (0.3-0.8); MONOCYTES % (AUTO) 5.8 % (0.0-13.0); NEUTROPHILS # (AUTO) 2.9 x10^3/uL (2.2-4.8); NEUTROPHILS % (AUTO) 81.1 % (42.0-75.0); PLATELET COUNT 293 X10^3/uL (150.0-450.0); RED BLOOD COUNT 2.88 X10^6/uL (3.5-5.4); RED CELL DISTRIBUTION WIDTH 16.6 % (11.6-16.5); WHITE BLOOD COUNT 3.6 X10^3/uL (3.6-10.0)
[2020-05-12 04:38] LABS: CALCIUM 9.4 mg/dL (8.5-10.1); CARBON DIOXIDE 25.6 mmol/L (21-32); CREATININE 2.71 mg/dL (0.55-1.02)
[2020-05-12] MEDS: DUONEB 0.5 MG/3 MG (3 mL) NEB SCH ×2 (06:00→13:06)
[2020-05-12 06:01] LABS: ABG ALLEN TEST POS; ABG BASE EXCESS 1.1 mmol/L (-2.0-2.0); ABG HCO3 27.1 mmol/L (22-26)
[2020-05-12] MEDS: HumuLIN R SC PRN ×4 (06:18→20:40)
[2020-05-12] MEDS ORDERED: ZOLOFT ONE (07:43)
[2020-05-12] MEDS: ELIQUIS PO SCH ×2 (08:49→20:37)
[2020-05-12] MEDS: COREG TAB 12.5 MG PO SCH ×2 (08:49→21:00)
[2020-05-12] MEDS: FOLIC ACID TAB 1 MG PO SCH (08:50)
[2020-05-12] MEDS ORDERED: LASIX IVP SCH (09:00)
[2020-05-12] MEDS: HEMOCYTE-PLUS PO SCH (09:04)
[2020-05-12] MEDS: LASIX IVP SCH ×2 (09:05→16:17)
[2020-05-12] MEDS: NORVASC TAB 5 MG PO SCH (09:05)
[2020-05-12] MEDS: PLAVIX PO SCH (09:05)
[2020-05-12] MEDS: KEPPRA TAB 500 MG PO SCH ×2 (09:05→20:37)
[2020-05-12] MEDS: REMDESIVIR 100 MG in NS 250 ML IV 250 ML IV SCH (09:06)
[2020-05-12] MEDS: SEROquel TAB 25 mg PO SCH (09:08)
[2020-05-12] MEDS: SOLU-Medrol 125 MG VIAL IVP SCH ×2 (09:08→20:37)
[2020-05-12] MEDS: VITAMIN D3 125 mcg (5,000 UNITS) PO SCH (09:09)
[2020-05-12] MEDS: ZOLOFT PO SCH (09:09)
[2020-05-12] MEDS: SYNTHROID 25 mcg TAB PO SCH (09:09)
[2020-05-12 09:25] VITALS: BMI 43.0
[2020-05-12] MEDS: PULMICORT NEB TX 0.5 MG NEB SCH ×2 (09:33→20:27)
--- NOTE | 2020-05-12 12:19 | DR.H&P ---
H&P History & Physical for Day of: H&P Date: 05/12/20 Chief Complaint Chief Complaint: Shortness of breath Allergies Allergies Allergy/AdvReac Type Severity Reaction Status Date / Time Sulfa (Sulfonamide Allergy Verified 12/14/16 13:55 Antibiotics) [SULFA] ciprofloxacin [From Cipro] AdvReac Verified 04/04/18 11:29 History of Present Illness History of Present Illness: Pt is a 65 year old female with past medical history of COPD(BL 2-3L), HFrEF(EF 40%,2020) CKD, admitted from [facility] for shortness of breath and hypoxia. Per nursing, patient has not been compliant with CPAP at night. Her oxygen saturations were noted to be in the 70s at nursing facility at which she was then sent to ED. Labs/imaging: Wbc 3.6, Hgb 8.8, Plt 293, Na 139, K 4.9, Creatinine 2.71, Glucose 254, BNP 1260, Troponin negative, ABG: pH 7.36, pCO2 48, pO2 59, HCO3 27, 89% on FiO2 36%, COVID19- positive, CXR: minimally improved CHF. Pt was given IV lasix 40mg x 1 dose in ED and started on viral protocol for COVID-19 positive result. She required BiPAP support but this morning respiratory status has improved to 4L nc, close to her baseline. Will continue Remdesivir, Solumedrol, Bronchodilators, immune supporting supplements. Will order IV Lasix 40mg BID. Continue to monitor and follow up labs/imaging in the morning. Time spent on documentation, reviewing labs/imaging, clinical assessment, and decision making greater than 75 minutes. Past Medical History Past Medical History: Anemia, Anxiety, CHF, COPD, Coronary Artery Disease, CVA, Depression, Diabetes, Dialysis, Hypertension, FL and Renal Disease Past Surgical History Surgical History: Angioplasty/Stents, CABG/Valve Surgery and Hysterectomy Family History Family Medical History: Diabetes Mellitus, Cancer, FL and Hypertension Social History Does patient currently use any type of tobacco product: No Have you used tobacco products in the last 12 months: No Type of Tobacco Use: None Does any household member use tobacco: No Alcohol Use: None Drug Use: None Medications Home Medications: Sulfa (Sulfonamide Antibiotics) [SULFA] Allergy (Verified 12/14/16 13:55) ciprofloxacin [From Cipro] Adverse Reaction (Verified 04/04/18 11:29) CONTINUE taking the following medications amiodarone 200 mg PO DAILY 05/11/20 [History] ipratropium-albuterol 3 ml INHALATION QID PRN 05/11/20 [History] magnesium hydroxide [Milk of Magnesia] 2,400 mg PO DAILY PRN 05/11/20 [History] Labs Result Diagrams: 05/12/20 04:00 05/12/20 04:00 Labs: Laboratory WBC 3.6 X10^3/uL (3.6-10.0) 05/12/20 04:00 RBC 2.88 X10^6/uL (3.5-5.4) L 05/12/20 04:00 Hgb 8.8 g/dL (12.0-16.0) L 05/12/20 04:00 Hct 27.0 % (36.0-47.0) L 05/12/20 04:00 MCV 93.8 fL (80.0-100.0) 05/12/20 04:00 MCH 30.5 pg (27.0-34.0) 05/12/20 04:00 MCHC 32.5 g/dL (33.0-35.0) L 05/12/20 04:00 RDW 16.6 % (11.6-16.5) H 05/12/20 04:00 Plt Count 293 X10^3/uL (150.0-450.0) 05/12/20 04:00 MPV 8.7 fL (7.4-11.0) 05/12/20 04:00 Neut % (Auto) 81.1 % (42.0-75.0) H 05/12/20 04:00 Lymph % (Auto) 12.8 % (21.0-51.0) L 05/12/20 04:00 Foster % (Auto) 5.8 % (0.0-13.0) 05/12/20 04:00 Eos % (Auto) 0.0 % (0.9-2.9) L 05/12/20 04:00 Baso % (Auto) 0.3 % (0.2-1.0) 05/12/20 04:00 Neut # (Auto) 2.9 x10^3/uL (2.2-4.8) 05/12/20 04:00 Lymph # (Auto) 0.5 X10^3/uL (1.3-2.9) L 05/12/20 04:00 Foster # (Auto) 0.2 x10^3/uL (0.3-0.8) L 05/12/20 04:00 Eos # (Auto) 0.0 x10^3/uL (0.0-0.2) 05/12/20 04:00 Baso # (Auto) 0.0 X10^3/uL (0.0-0.1) 05/12/20 04:00 Absolute Nucleated RBC 0.2 /100WBC 05/12/20 04:00 Sample Site Rra 05/12/20 05:58 ABG pH 7.360 (7.35-7.45) 05/12/20 05:58 ABG pCO2 48.0 mmHg (35.0-45.0) H 05/12/20 05:58 ABG pO2 59.0 mmHg (80.0-100.0) L 05/12/20 05:58 ABG HCO3 27.1 mmol/L (22-26) H 05/12/20 05:58 ABG O2 Saturation 89.0 % (90-100) L 05/12/20 05:58 ABG Base Excess 1.1 mmol/L (-2.0-2.0) 05/12/20 05:58 Kevin Test Pos 05/12/20 05:58 A-a Gradient 138.0 mmHg 05/12/20 05:58 FiO2 36.0 05/12/20 05:58 Blood Gas Comments Surinder well mt 05/12/20 05:58 Sodium 139 mmol/L (136-145) 05/12/20 04:00 Corrected Sodium 143 mmol/L (136-145) 05/12/20 04:00 Potassium 4.9 mmol/L (3.5-5.1) 05/12/20 04:00 Chloride 103 mmol/L (98-107) 05/12/20 04:00 Carbon Dioxide 25.6 mmol/L (21-32) 05/12/20 04:00 BUN 72 mg/dL (7-18) H 05/12/20 04:00 Creatinine 2.71 mg/dL (0.55-1.02) H 05/12/20 04:00 Est GFR (MDRD) Af Amer 23 (>60) L 05/12/20 04:00 Est GFR (MDRD) Non-Af 19 (>60) L 05/12/20 04:00 Glucose 254 mg/dL (65-99) H 05/12/20 04:00 POC Glucose (mg/dL) 241 mg/dL (65-99) H 05/12/20 11:28 Calcium 9.4 mg/dL (8.5-10.1) 05/12/20 04:00 Creatine Kinase 60 Units/L (26-192) 05/11/20 08:49 CK-MB (CK-2) < 1.0 ng/mL (0-4.0) 05/11/20 08:49 CK/CKMB % Calc 1.7 % (<4) 05/11/20 08:49 Troponin I < 0.02 ng/mL (0-1.5) 05/11/20 08:49 C-Reactive Protein 155.20 mg/L (0-3.0) H 05/11/20 08:49 B-Natriuretic Peptide 1260 pg/mL (0-79) H* 05/11/20 08:49 SARS CoV-2 RNA Rapid LEIGH Positive (NEGATIVE) A 05/11/20 12:28 Review of Systems Constitutional: Weakness Eyes: No Symptoms Reported ENT: No Symptoms Reported Respiratory: Cough and Shortness of Breath Cardiovascular: Edema Gastrointestinal: No Symptoms Reported Genitourinary: No Symptoms Reported Musculoskeletal: No Symptoms Reported Skin: No Symptoms Reported Neurological: No Symptoms Reported Physical Exam Vital Signs: Temperature 97.8 F Pulse Rate 52 Respiratory Rate 37 Blood Pressure [Right Arm] 135/61 Blood Pressure 151/66 O2 Sat by Pulse Oximetry 94 Oriented: Normal Eyes: Normal Ear: Normal Nose: Normal Throat: Normal Respiratory: Clear Throughout Cardiovascular: Normal : Normal Auscultation: Bowel Sounds: Normal Palpation: Normal Tenderness: Normal Skin: Normal Musculoskeletal: Normal Psychiatric: Normal Mood Description: Calm and Appropriate Affect: Normal Speech Pattern: Clear and Appropriate Assessment/Plan (1) Acute exacerbation of CHF (congestive heart failure): Status: Acute Plan: IV lasix 40mg BID Strict I/O Fluid restriction (2) COVID-19: Status: Acute Review H&P Reviewed: Yes Patient was examined?: Yes
[2020-05-12] MEDS: LIPITOR TAB 40 MG PO SCH (20:37)
--- NOTE | 2020-05-13 04:36 | RAD ---
PROCEDURE: Chest X-ray 1 View .HISTORY: Follow-up congestive heart failure.TECHNIQUE: AP view .COMPARISON: 05/12/2020.TECHNICAL QUALITY: Satisfactory .FINDINGS:Unchanged right internal jugular central venous line.Unchanged mild cardiomegaly with previous sternotomy.Mediastinum and hilar regions show no masses or lymphadenopathy .Improved central vascularity.No pulmonary consolidation, masses, pleural fluid, or pneumothorax .No acute bony abnormality .IMPRESSION:Unchanged mild cardiomegaly with improved central vascularity since previous study.Electronically signed by: Ben Clark (May 13, 2020 04:35:01)
[2020-05-13 04:41] LABS: BASOPHILS % (AUTO) 0.3 % (0.2-1.0); HEMATOCRIT 29.7 % (36.0-47.0); HEMOGLOBIN 9.7 g/dL (12.0-16.0); LYMPHOCYTES # (AUTO) 0.4 X10^3/uL (1.3-2.9); LYMPHOCYTES % (AUTO) 3.9 % (21.0-51.0); MEAN CORPUSCULAR HEMOGLOBIN 30.5 pg (27.0-34.0); MEAN CORPUSCULAR HGB CONC 32.6 g/dL (33.0-35.0); MEAN CORPUSCULAR VOLUME 93.7 fL (80.0-100.0); MEAN PLATELET VOLUME 8.3 fL (7.4-11.0); MONOCYTES # (AUTO) 0.3 x10^3/uL (0.3-0.8); MONOCYTES % (AUTO) 3.1 % (0.0-13.0); NEUTROPHILS # (AUTO) 8.5 x10^3/uL (2.2-4.8); NEUTROPHILS % (AUTO) 92.7 % (42.0-75.0); PLATELET COUNT 396 X10^3/uL (150.0-450.0); RED BLOOD COUNT 3.17 X10^6/uL (3.5-5.4); RED CELL DISTRIBUTION WIDTH 16.5 % (11.6-16.5); WHITE BLOOD COUNT 9.2 X10^3/uL (3.6-10.0)
[2020-05-13 04:50] LABS: CALCIUM 9.6 mg/dL (8.5-10.1); CARBON DIOXIDE 28.8 mmol/L (21-32); CREATININE 2.86 mg/dL (0.55-1.02)
[2020-05-13 05:18] LABS: PLATELET MORPHOLOGY COMMENT NORMAL (NORMAL)
[2020-05-13] MEDS: DUONEB 0.5 MG/3 MG (3 mL) NEB SCH (05:29)
[2020-05-13] MEDS: HumuLIN R SC PRN ×2 (05:30→12:12)
[2020-05-13] MEDS ORDERED: ZOLOFT ONE (07:27)
[2020-05-13] MEDS: LASIX IVP SCH (08:56)
[2020-05-13] MEDS: HEMOCYTE-PLUS PO SCH (08:56)
[2020-05-13] MEDS: ELIQUIS PO SCH (08:57)
[2020-05-13] MEDS: FOLIC ACID TAB 1 MG PO SCH (08:57)
[2020-05-13] MEDS: PLAVIX PO SCH (08:57)
[2020-05-13] MEDS: VITAMIN D3 125 mcg (5,000 UNITS) PO SCH (08:58)
[2020-05-13] MEDS: ZOLOFT PO SCH (08:58)
[2020-05-13] MEDS: NORVASC TAB 5 MG PO SCH (08:58)
[2020-05-13] MEDS: SOLU-Medrol 125 MG VIAL IVP SCH (08:58)
[2020-05-13] MEDS: KEPPRA TAB 500 MG PO SCH (08:58)
[2020-05-13] MEDS: SYNTHROID 25 mcg TAB PO SCH (08:59)
[2020-05-13] MEDS: REMDESIVIR 100 MG in NS 250 ML IV 250 ML IV SCH (08:59)
[2020-05-13] MEDS: SEROquel TAB 25 mg PO SCH (09:00)
[2020-05-13] MEDS: COREG TAB 12.5 MG PO SCH (09:00)
[2020-05-13] MEDS: PULMICORT NEB TX 0.5 MG NEB SCH (09:25)
[2020-05-13 12:12] VITALS: BP 133/60
--- NOTE | 2020-05-13 12:27 | W.DIS.FURT ---
Summary of Discharge Discharge Summary of Date Date of Exam: 05/13/20 Admission Date Date of Admission: 05/12/20 Admission Diagnosis Patient Problems (Updated 05/12/20 @ 10:51 by Obdulia Porter) CHF (congestive heart failure) (Chronic) I50.9 Hospital Course: Pt is a 65 year old female with past medical history of COPD(BL 2-3L), HFrEF(EF 40%,2020) CKD, admitted from [facility] for CHF exacerbation and positive COVID-19. Pt was treated with supplemental O2, Remdesivir, Solumedrol, Bronchodilators, immune supporting supplements, IV Lasix 40mg BID. Pt responded well to treatments and was back to her baseline O2 requirement on discharge. Labs/imaging: Wbc 9.2, Hgb 9.7, Plt 396, Na 138, K 4.8, Creatinine 2.86, Glucose 357, [id number], CXR: Unchanged mild cardiomegaly with improved central vascularity since previous study. Pt was discharged back to [place] in stable condition. She will get PO Lasix 80mg BID x 3 days and continue Remdesivir and oral prednisone to complete 5 day course. Vital Signs: Vital Signs (72 hours) 05/11/20 08:25 05/11/20 08:30 05/11/20 08:45 Temperature 98.2 F Pulse Rate 59 L 59 L 58 L Respiratory Rate 35 H 27 H 28 H Blood Pressure 158/71 O2 Sat by Pulse Oximetry 90 L 87 L 98 05/11/20 09:00 05/11/20 09:15 05/11/20 09:30 Temperature Pulse Rate 55 L 53 L 52 L Respiratory Rate 37 H 25 H Blood Pressure O2 Sat by Pulse Oximetry 95 93 L 05/11/20 09:31 05/11/20 09:45 05/11/20 10:00 Temperature Pulse Rate 53 L 53 L 54 L Respiratory Rate 31 H 26 H 26 H Blood Pressure 154/69 O2 Sat by Pulse Oximetry 05/11/20 10:15 05/11/20 10:18 05/11/20 10:30 Temperature Pulse Rate 54 L 53 L 53 L Respiratory Rate 25 H 24 41 H Blood Pressure 145/67 O2 Sat by Pulse Oximetry 86 L 87 L 05/11/20 10:31 05/11/20 10:45 05/11/20 11:00 Temperature Pulse Rate 58 L 53 L 52 L Respiratory Rate 43 H 37 H 28 H Blood Pressure 130/61 O2 Sat by Pulse Oximetry 87 L 88 L 05/11/20 11:01 05/11/20 11:15 05/11/20 11:30 Temperature Pulse Rate 53 L 58 L 55 L Respiratory Rate 33 H 27 H 22 Blood Pressure 139/66 156/67 O2 Sat by Pulse Oximetry 89 L 05/11/20 11:45 05/11/20 12:00 05/11/20 12:01 Temperature Pulse Rate 56 L 56 L 57 L Respiratory Rate 23 25 H 34 H Blood Pressure 168/69 O2 Sat by Pulse Oximetry 05/11/20 12:15 05/11/20 12:30 05/11/20 12:31 Temperature Pulse Rate 64 56 L 56 L Respiratory Rate 22 24 30 H Blood Pressure 143/72 O2 Sat by Pulse Oximetry 93 L 93 L 05/11/20 12:45 05/11/20 13:00 05/11/20 13:01 Temperature Pulse Rate 55 L 56 L 56 L Respiratory Rate 22 30 H 29 H Blood Pressure 148/68 O2 Sat by Pulse Oximetry 05/11/20 13:19 05/11/20 13:30 05/11/20 13:45 Temperature 98.1 F Pulse Rate 56 L 54 L 56 L Respiratory Rate 20 28 H 36 H Blood Pressure O2 Sat by Pulse Oximetry 92 L 93 L 93 L 05/11/20 14:00 05/11/20 14:15 05/11/20 14:30 Temperature Pulse Rate 56 L 58 L 54 L Respiratory Rate 40 H 28 H 22 Blood Pressure O2 Sat by Pulse Oximetry 94 L 94 L 93 L 05/11/20 14:45 05/11/20 15:00 05/11/20 15:15 Temperature Pulse Rate 55 L 55 L 56 L Respiratory Rate 25 H 32 H 27 H Blood Pressure O2 Sat by Pulse Oximetry 90 L 94 L 92 L 05/11/20 15:30 05/11/20 15:45 05/11/20 16:00 Temperature Pulse Rate 52 L 50 L 48 L Respiratory Rate 16 17 16 Blood Pressure O2 Sat by Pulse Oximetry 98 98 100 05/11/20 16:01 05/11/20 16:15 05/11/20 20:00 Temperature 98.6 F 98.0 F Pulse Rate 48 L 50 L 58 L Respiratory Rate 20 17 23 Blood Pressure 130/63 162/70 O2 Sat by Pulse Oximetry 100 91 L 96 05/11/20 20:17 05/12/20 00:00 05/12/20 00:15 Temperature 98.3 F Pulse Rate 55 L 51 L 51 L Respiratory Rate 21 23 Blood Pressure 134/60 O2 Sat by Pulse Oximetry 94 L 93 L 88 L 05/12/20 04:00 05/12/20 07:00 05/12/20 07:15 Temperature 98.9 F 98.1 F Pulse Rate 54 L 53 L 53 L Respiratory Rate 29 H 36 H 20 Blood Pressure 157/66 O2 Sat by Pulse Oximetry 95 95 94 L 05/12/20 07:30 05/12/20 07:45 05/12/20 08:00 Temperature Pulse Rate 54 L 55 L 53 L Respiratory Rate 25 H 30 H 36 H Blood Pressure O2 Sat by Pulse Oximetry 95 90 L 95 05/12/20 08:01 05/12/20 08:15 05/12/20 08:30 Temperature Pulse Rate 55 L 58 L 54 L Respiratory Rate 38 H 30 H 23 Blood Pressure 151/66 O2 Sat by Pulse Oximetry 95 93 L 93 L 05/12/20 08:45 05/12/20 09:00 05/12/20 09:15 Temperature Pulse Rate 55 L 55 L 55 L Respiratory Rate 26 H 19 21 Blood Pressure O2 Sat by Pulse Oximetry 95 92 L 92 L 05/12/20 09:30 05/12/20 09:33 05/12/20 09:45 Temperature Pulse Rate 57 L 55 L 54 L Respiratory Rate 38 H 35 H Blood Pressure O2 Sat by Pulse Oximetry 92 L 94 L 99 05/12/20 10:00 05/12/20 10:15 05/12/20 10:30 Temperature Pulse Rate 53 L 53 L 51 L Respiratory Rate 32 H 34 H 28 H Blood Pressure O2 Sat by Pulse Oximetry 93 L 90 L 83 L 05/12/20 10:45 05/12/20 11:00 05/12/20 11:15 Temperature Pulse Rate 53 L 52 L 52 L Respiratory Rate 30 H 38 H 37 H Blood Pressure O2 Sat by Pulse Oximetry 86 L 94 L 95 05/12/20 11:30 05/12/20 11:45 05/12/20 12:00 Temperature 97.8 F Pulse Rate 54 L 52 L 52 L Respiratory Rate 37 H 37 H 35 H Blood Pressure O2 Sat by Pulse Oximetry 96 94 L 95 05/12/20 12:01 05/12/20 12:15 05/12/20 12:30 Temperature 97.7 F Pulse Rate 52 L 56 L 51 L Respiratory Rate 33 H 31 H 33 H Blood Pressure 169/70 O2 Sat by Pulse Oximetry 95 95 94 L 05/12/20 12:45 05/12/20 13:00 05/12/20 13:15 Temperature Pulse Rate 53 L 53 L 53 L Respiratory Rate 28 H 29 H 22 Blood Pressure O2 Sat by Pulse Oximetry 93 L 82 L 98 05/12/20 13:30 05/12/20 13:45 05/12/20 14:00 Temperature Pulse Rate 52 L 52 L 53 L Respiratory Rate 34 H 21 22 Blood Pressure O2 Sat by Pulse Oximetry 96 94 L 93 L 05/12/20 14:15 05/12/20 14:30 05/12/20 15:00 Temperature Pulse Rate 54 L 53 L 54 L Respiratory Rate 19 35 H 20 Blood Pressure O2 Sat by Pulse Oximetry 95 93 L 94 L 05/12/20 15:15 05/12/20 15:30 05/12/20 15:45 Temperature Pulse Rate 52 L 52 L 53 L Respiratory Rate 18 26 H 32 H Blood Pressure O2 Sat by Pulse Oximetry 94 L 93 L 93 L 05/12/20 16:00 05/12/20 16:01 05/12/20 20:00 Temperature 98.1 F 97.9 F Pulse Rate 54 L 53 L 54 L Respiratory Rate 27 H 25 H 29 H Blood Pressure 161/72 154/68 O2 Sat by Pulse Oximetry 93 L 92 L 92 L 05/12/20 20:27 05/13/20 00:00 05/13/20 04:00 Temperature 98.2 F 97.6 F Pulse Rate 54 L 50 L 52 L Respiratory Rate 24 18 Blood Pressure 151/68 167/73 O2 Sat by Pulse Oximetry 92 L 90 L 91 L 05/13/20 05:29 05/13/20 08:00 05/13/20 09:25 Temperature 98.1 F Pulse Rate 54 L 57 L 58 L Respiratory Rate 21 Blood Pressure 175/73 O2 Sat by Pulse Oximetry 92 L 94 L 97 05/13/20 12:00 Temperature 97.9 F Pulse Rate 54 L Respiratory Rate 19 Blood Pressure 133/60 O2 Sat by Pulse Oximetry 94 L Labs: Laboratory Last Values WBC 9.2 X10^3/uL (3.6-10.0) 05/13/20 04:25 RBC 3.17 X10^6/uL (3.5-5.4) L 05/13/20 04:25 Hgb 9.7 g/dL (12.0-16.0) L 05/13/20 04:25 Hct 29.7 % (36.0-47.0) L 05/13/20 04:25 MCV 93.7 fL (80.0-100.0) 05/13/20 04:25 MCH 30.5 pg (27.0-34.0) 05/13/20 04:25 MCHC 32.6 g/dL (33.0-35.0) L 05/13/20 04:25 RDW 16.5 % (11.6-16.5) 05/13/20 04:25 Plt Count 396 X10^3/uL (150.0-450.0) 05/13/20 04:25 Plt Count Comment Adequate (ADEQUATE) 05/13/20 04:25 MPV 8.3 fL (7.4-11.0) 05/13/20 04:25 Neut % (Auto) 92.7 % (42.0-75.0) H 05/13/20 04:25 Lymph % (Auto) 3.9 % (21.0-51.0) L 05/13/20 04:25 Schley % (Auto) 3.1 % (0.0-13.0) 05/13/20 04:25 Eos % (Auto) 0.0 % (0.9-2.9) L 05/13/20 04:25 Baso % (Auto) 0.3 % (0.2-1.0) 05/13/20 04:25 Neut # (Auto) 8.5 x10^3/uL (2.2-4.8) H 05/13/20 04:25 Lymph # (Auto) 0.4 X10^3/uL (1.3-2.9) L 05/13/20 04:25 Schley # (Auto) 0.3 x10^3/uL (0.3-0.8) 05/13/20 04:25 Eos # (Auto) 0.0 x10^3/uL (0.0-0.2) 05/13/20 04:25 Baso # (Auto) 0.0 X10^3/uL (0.0-0.1) 05/13/20 04:25 Absolute Nucleated RBC 0.1 /100WBC 05/13/20 04:25 Total Counted 100 05/13/20 04:25 Neutrophils % (Manual) 97 % (39-76) H 05/13/20 04:25 Lymphocytes % (Manual) 2 % (13-43) L 05/13/20 04:25 Monocytes % (Manual) 1 % (4-9) L 05/13/20 04:25 Plt Morphology Comment Normal (NORMAL) 05/13/20 04:25 RBC Morphology Normal (NORMAL) 05/13/20 04:25 Sample Site Rra 05/12/20 05:58 ABG pH 7.360 (7.35-7.45) 05/12/20 05:58 ABG pCO2 48.0 mmHg (35.0-45.0) H 05/12/20 05:58 ABG pO2 59.0 mmHg (80.0-100.0) L 05/12/20 05:58 ABG HCO3 27.1 mmol/L (22-26) H 05/12/20 05:58 ABG O2 Saturation 89.0 % (90-100) L 05/12/20 05:58 ABG Base Excess 1.1 mmol/L (-2.0-2.0) 05/12/20 05:58 Kevin Test Pos 05/12/20 05:58 A-a Gradient 138.0 mmHg 05/12/20 05:58 FiO2 36.0 05/12/20 05:58 Blood Gas Comments Surinder well mt 05/12/20 05:58 Sodium 138 mmol/L (136-145) 05/13/20 04:25 Corrected Sodium 144 mmol/L (136-145) 05/13/20 04:25 Potassium 4.8 mmol/L (3.5-5.1) 05/13/20 04:25 Chloride 104 mmol/L (98-107) 05/13/20 04:25 Carbon Dioxide 28.8 mmol/L (21-32) 05/13/20 04:25 BUN 82 mg/dL (7-18) H 05/13/20 04:25 Creatinine 2.86 mg/dL (0.55-1.02) H 05/13/20 04:25 Est GFR (MDRD) Af Amer 21 (>60) L 05/13/20 04:25 Est GFR (MDRD) Non-Af 18 (>60) L 05/13/20 04:25 Glucose 357 mg/dL (65-99) H 05/13/20 04:25 POC Glucose (mg/dL) 313 mg/dL (65-99) H 05/13/20 11:58 Calcium 9.6 mg/dL (8.5-10.1) 05/13/20 04:25 Creatine Kinase 60 Units/L (26-192) 05/11/20 08:49 CK-MB (CK-2) < 1.0 ng/mL (0-4.0) 05/11/20 08:49 CK/CKMB % Calc 1.7 % (<4) 05/11/20 08:49 Troponin I < 0.02 ng/mL (0-1.5) 05/11/20 08:49 C-Reactive Protein 103.20 mg/L (0-3.0) H 05/13/20 04:25 B-Natriuretic Peptide 1220 pg/mL (0-79) H* 05/13/20 04:25 SARS CoV-2 RNA Rapid LEIGH Positive (NEGATIVE) A 05/11/20 12:28 Reason For Visit: COVID 19 POSITIVE,ACUTE CHF EXACERBATION Discharge Date Discharge Date: 05/13/20 Discharge Diagnosis All Active Problems (Updated 05/12/20 @ 10:51 by Obdulia Porter) Acute exacerbation of CHF (congestive heart failure) (Acute) COVID-19 (Acute) CHF (congestive heart failure) (Chronic) Seizure disorder as sequela of cerebrovascular accident (Chronic) COPD (chronic obstructive pulmonary disease) (Chronic) CAD (coronary artery disease) (Chronic) Hyperlipidemia, mixed (Chronic) Chronic renal insufficiency, stage I (Chronic) Pulmonary edema (Chronic) Clotting disorder (Chronic) Back pain (Chronic) Diabetes mellitus, type II (Chronic) HTN (hypertension) (Chronic) Hyperlipidemia (Chronic) Plan of Treatment: Continue with present treatment and follow up plan. Pt is to keep follow up appointment as instructed and take medications as ordered. Discharge Medications Discharge Medications: Sulfa (Sulfonamide Antibiotics) [SULFA] Allergy (Verified 12/14/16 13:55) ciprofloxacin [From Cipro] Adverse Reaction (Verified 04/04/18 11:29) CONTINUE taking the following medications amiodarone 200 mg PO DAILY 05/11/20 [History] ipratropium-albuterol 3 ml INHALATION QID PRN 05/11/20 [History] magnesium hydroxide 2,400 mg PO DAILY PRN 05/11/20 [History] New Prescriptions furosemide [Lasix] 80 mg PO BID 3 Days #6 tab 05/13/20 [Rx] prednisone 40 mg PO DAILY 3 Days #6 tab 05/13/20 [Rx] Discharge Disposition Assessment: Stable no acute distress noted at time of discharge. Discharge Disposition: [facility] Discharge Condition: Stable Discharge Plan Discharge Plan Hospital Course: Pt is a 65 year old female with past medical history of COPD(BL 2-3L), HFrEF(EF 40%,2020) CKD, admitted from [facility] for CHF exacerbation and positive COVID-19. Pt was treated with supplemental O2, Remdesivir, Solumedrol, Bronchodilators, immune supporting supplements, IV Lasix 40mg BID. Pt responded well to treatments and was back to her baseline O2 requirement on discharge. Labs/imaging: Wbc 9.2, Hgb 9.7, Plt 396, Na 138, K 4.8, Creatinine 2.86, Glucose 357, [id number], CXR: Unchanged mild cardiomegaly with improved central vascularity since previous study. Pt was discharged back to [place] in stable condition. She will get PO Lasix 80mg BID x 3 days and continue Remdesivir and oral prednisone to complete 5 day course. Patient Disposition: 01 HOME, SELF-CARE Condition: Stable Health Concerns: Post Hospitalization: new medications and changes needed to prevent readmission or further decline. Pt educated and given instructions on all concerns. Care Plan Goals: Problem: Respiratory Complications Goal: Improved Uncomplicated Respiratory Status Instructions: Follow provided instructions. Follow up with primary physician as directed. Contact primary care physician or report to the closest Emergency Room if condition worsens. Plan of Treatment: Continue with present treatment and follow up plan. Pt is to keep follow up appointment as instructed and take medications as ordered. Assessment: Stable no acute distress noted at time of discharge. Prescriptions: New prednisone 20 mg tablet 40 mg PO DAILY 3 Days Qty: 6 RF: 0 furosemide [Lasix] 80 mg tablet 80 mg PO BID 3 Days Qty: 6 RF: 0 Continued Hemorrhoidal (witch ellen) 50 % Pads, Medicated 1 pad TOPICAL QID PRN (Reason: Hemorrhoids) RF: 0 Preparation H Rapid Rlf-Lidocn 5-0.25-14.4-15 % Cream 1 applic TOPICAL QID PRNRF: 0 Novolin R Regular U-100 Insuln 100 unit/mL Solution 1 sliding scale dose SUBCUT USEASDIRECTD RF: 0 furosemide [Lasix] 40 mg tablet 40 mg PO BID RF: 0 Eliquis 2.5 mg Tablet 2.5 mg PO BID Qty: 60 RF: 0 nystatin-triamcinolone 100,000-0.1 unit/g-% Cream 1 applic TOPICAL BID Qty: 1 RF: 0 ipratropium-albuterol 0.5 mg-3 mg(2.5 mg base)/3 mL Solution For Nebulization 3 ml INHALATION QID PRN (Reason: shorntess of breath) RF: 0 magnesium hydroxide 800 mg/5 mL Suspension 2,400 mg PO DAILY PRN (Reason: Constipation) RF: 0 amiodarone 200 mg tablet 200 mg PO DAILY RF: 0 quetiapine 25 mg Tablet 25 mg PO DAILY RF: 0 atorvastatin 40 mg Tablet 40 mg PO QHS RF: 0 carvedilol 12.5 mg tablet 12.5 mg PO BID RF: 0 acetaminophen-codeine 325-30 mg Capsule 1 cap PO Q6H PRNRF: 0 levetiracetam 500 mg tablet 500 mg PO BID RF: 0 sertraline 100 mg tablet 100 mg PO DAILY RF: 0 clopidogrel 75 mg tablet 75 mg PO DAILY RF: 0 levothyroxine 25 mcg tablet 25 mcg PO DAILY RF: 0 folic acid 1 mg Tablet 1 mg PO DAILY RF: 0 cholecalciferol (vitamin D3) 10 mcg (400 unit) Tablet 400 unit PO DAILY RF: 0 ferrous fumarate [Ferrocite] 324 mg (106 mg iron) Tablet 324 mg PO DAILY RF: 0 Entresto 24-26 mg tablet 1 tab PO BID RF: 0 amlodipine [Norvasc] 5 mg Tablet 5 mg PO DAILY Qty: 30 RF: 3 Orders to Discharge Patient Discharge Orders: Discharge (Routine); Ordered 05/13/20 Ordered By: Toro Anderson Follow ups/Referrals Follow ups/Referrals: Rohit Hawkins [Primary Care Provider] - 3 days (Follow up made by the [facility] due to transporation.) Instructions Instructions: Incentive Spirometer, Hand Washing, [id number], Heart Failure Action Plan, Type 2 Diabetes Mellitus, Self Care, Adult, Aywx-ec-[id number], Chronic Obstructive Pulmonary Disease Exacerbation, Droplet Precautions, [id number], Contact Precautions, [id number], Heart Failure, Hegt-[id number], Cough, Adult, Pulmonary Edema, Vivp-Dd-Netc Stand Alone Forms: Excuse From Work or School, Precautions for COVID19, Patient Portal, Social Distancing
== END 2020-05-13 14:20 | disposition home or self-care (01) ==
LOC: ICU 08:15 → ER 08:15 → ICU 13:08
PROVIDERS: ADMIT Internal Medicine; ATTEND Internal Medicine
DX: U07.1 COVID-19; I50.9 Heart failure, unspecified; J44.9 Chronic obstructive pulmonary disease, unspecified; N18.9 Chronic kidney disease, unspecified; R06.02 Shortness of breath

== ENCOUNTER 2020-07-07 21:17 | Observation (INO) ==
[2020-07-07] MEDS ORDERED: DUONEB 0.5 MG/3 MG (3 mL) NEB PRN (23:33)
[2020-07-08 00:39] VITALS: BMI 46.8
[2020-07-08] MEDS: NS 1000 ML 1,000 ML IV SCH ×2 (00:40→12:53)
[2020-07-08 06:09] LABS: BASOPHILS % (AUTO) 0.8 % (0.2-1.0); EOSINOPHILS # (AUTO) 0.3 x10^3/uL (0.0-0.2); EOSINOPHILS % (AUTO) 4.4 % (0.9-2.9); HEMATOCRIT 22.3 % (36.0-47.0); HEMOGLOBIN 7.5 g/dL (12.0-16.0); LYMPHOCYTES % (AUTO) 16.6 % (21.0-51.0); MEAN CORPUSCULAR HEMOGLOBIN 32.6 pg (27.0-34.0); MEAN CORPUSCULAR HGB CONC 33.5 g/dL (33.0-35.0); MEAN CORPUSCULAR VOLUME 97.4 fL (80.0-100.0); MEAN PLATELET VOLUME 7.8 fL (7.4-11.0); MONOCYTES # (AUTO) 0.4 x10^3/uL (0.3-0.8); MONOCYTES % (AUTO) 6.3 % (0.0-13.0); NEUTROPHILS # (AUTO) 4.4 x10^3/uL (2.2-4.8); NEUTROPHILS % (AUTO) 71.9 % (42.0-75.0); PLATELET COUNT 268 X10^3/uL (150.0-450.0); RED BLOOD COUNT 2.29 X10^6/uL (3.5-5.4); RED CELL DISTRIBUTION WIDTH 18.3 % (11.6-16.5); WHITE BLOOD COUNT 6.1 X10^3/uL (3.6-10.0)
[2020-07-08 06:47] LABS: ALBUMIN 2.8 g/dL (3.4-5.0); CALCIUM 10.8 mg/dL (8.5-10.1); CARBON DIOXIDE 34.7 mmol/L (21-32); COR CA(FOR HYPOALB) 11.8 mg/dL (8.5-10.1); CREATININE 2.15 mg/dL (0.55-1.02); TOTAL PROTEIN 6.3 g/dL (6.4-8.2)
[2020-07-08] MEDS: PROTONIX INJ 40 MG VIAL IVP SCH ×2 (09:00→21:20)
[2020-07-08] MEDS: PEPCID 20 MG IV PREMIX* 20 MG/50 ML BAG IV SCH (09:00)
[2020-07-08 09:03] LABS: IRON 37 ug/dL (50-175)
--- NOTE | 2020-07-08 09:07 | DR.H&P ---
H&P - History & Physical for Day of: H&P Date: 07/07/20 - Chief Complaint Chief Complaint: WEAKNESS - History of Present Illness History of Present Illness: IS A 65 YEAR OLD RESIDENT OF [facility]. SHE WAS A DIRECT ADMISSION TO THE HOSPITAL DUE TO DIAGNOSIS OF RENAL FAILURE AND ANEMIA PER OUTPATIENT LABS. PATIENT IS ABLE TO COMMUNICATE WELL AND VOICE HER NEEDS/CONCERNS. PATIENT DOES REPORT WEAKNESS, BUT DENIES PAIN OR SHORTNESS OF BREATH. SHE REPORTS THAT WEAKNESS STARTED ABOUT A WEEK AGO. HER PMH INCLUDES: TINNITUS, CVA, SEIZURES, CAD, CHF, MA, HYPERLIPIDEMIA, HTN, A-FIB, BRADYCARDIA, COPD, GERD, KIDNEY STONES, URINARY RETENTION, HYSTERECTOMY, OSTEOARTHRITIS, DM II, HYPOTHYROIDISM, ANEMIA, ANXIETY, DEPRESSION, CARDIAC STENT, CABG, HYSTERECTOMY. SHE HAD A CAST REMOVED FROM HER LEFT WRIST ONE DAY PRIOR. SHE HAS AN INDWELLING CARY CATHETER WITH DARK URINE THAT HAS A FOUL ODOR. ON ARRIVAL TO THE HOSPITAL, HER VITALS WERE: 97.9-53-20-94%-154/70. OUTPATIENT LABS WERE OBTAINED ON 07/07/20 AND REVEALED THE FOLLOWING ABNORMAL LAB VALUES: RBC 2.33, HGB 7.6, HCT 22.8, CARBON DIOXIDE 35.2, BUN 43, CREATININE 2.30, GLUCOSE 132, TSH 4.653. SHE WAS STARTED ON NORMAL SALINE AT 80 ML/HR, PEPCID 20MG IV DAILY, PROTONIX 40MG IV BID. WE WILL REVIEW HER HOME MEDICATIONS AND RESUME APPROPRIATE WHEN THEY ARE AVAILABLE TO US. A TYPE AND SCREEN WAS SET UP AND WE WILL CROSSMATCH AND TRANSFUSE 2 UNITS OF PRBC. WE WILL ADMINISTER LASIX 40MG IV BEFORE 1ST UNIT AND AFTER. WE WILL OBTAIN A STOOL TO CHECK FOR OCCULT BLOOD. WE WILL ALSO OBTAIN A URINALYSIS. OTHERWISE, WE WILL FOLLOW UP WITH AM LABS AND CONTINUE TO MONITOR. TIME SPENT ON CLINICAL ASSESSMENT, REVIEWING LABS AND IMAGING, DECISION MAKING, AND DOCUMENTATION GREATER THAN 75 MINUTES. - Past Medical History Past Medical History: MA, Coronary Artery Disease, Hypertension, Diabetes, Renal Disease, Dialysis, Depression, Anxiety, Anemia, CVA, COPD, CHF - Past Surgical History Surgical History: Angioplasty/Stents, CABG/Valve Surgery, Hysterectomy - Family History Family Medical History: Diabetes Mellitus, Cancer, MA, Hypertension - Social History Does patient currently use any type of tobacco product: No Have you used tobacco products in the last 12 months: No Type of Tobacco Use: None Does any household member use tobacco: No Alcohol Use: None Drug Use: None - Medications Home Medications: Sulfa (Sulfonamide Antibiotics) [SULFA] Allergy (Verified 12/14/16 13:55) ciprofloxacin [From Cipro] Adverse Reaction (Verified 04/04/18 11:29) - Review of Systems Constitutional: Weakness Eyes: No Symptoms Reported ENT: No Symptoms Reported Respiratory: No Symptoms Reported Cardiovascular: No Symptoms Reported Gastrointestinal: No Symptoms Reported Genitourinary: See HPI, Other (DARK, FOUL SMELLING URINE ) Musculoskeletal: No Symptoms Reported Skin: No Symptoms Reported Neurological: Weakness - Physical Exam Vital Signs: Temperature 97.4 F Pulse Rate [Brachial] 52 Pulse Rate 54 Respiratory Rate 20 Blood Pressure [Right Arm] 149/67 Blood Pressure 133/60 O2 Sat by Pulse Oximetry 94 Oriented: Normal Eyes: Normal Ear: Normal Nose: Normal Throat: Normal Respiratory: Diminished Throughout Cardiovascular: Bradycardia : Normal Auscultation: Bowel Sounds: Normal Palpation: Normal Tenderness: Normal Skin: Normal Musculoskeletal: Normal Psychiatric: Normal Mood Description: Calm Affect: Normal Speech Pattern: Clear - Assessment/Plan (1) Acute renal failure Qualifiers: Acute renal failure type: unspecified Qualified Code(s): N17.9 - Acute kidney failure, unspecified Status: Acute Plan: ADMIT, TRANSFUE 2 UNITS PRBC, NORMAL SALINE AT 80 ML/HR, PEPCID 20MG IV DAILY, PROTONIX 40MG IV BID. RESUME HOME MEDS (2) Anemia Qualifiers: Anemia type: iron deficiency Iron deficiency anemia type: chronic blood loss Qualified Code(s): D50.0 - Iron deficiency anemia secondary to blood loss (chronic) Status: Acute - Allergies Allergies/Adverse Reactions: Allergies Allergy/AdvReac Type Severity Reaction Status Date / Time Sulfa (Sulfonamide Allergy Verified 12/14/16 13:55 Antibiotics) [SULFA] ciprofloxacin [From Cipro] AdvReac Verified 04/04/18 11:29
[2020-07-08] MEDS ORDERED: BENADRYL INJ 50 MG VIAL IVP PRN (09:54)
[2020-07-08] MEDS ORDERED: TYLENOL 325 MG TAB PO PRN (09:54)
[2020-07-08] MEDS ORDERED: PROCRIT or EPOGEN VIAL 10,000 UNITS SC ONE (09:57)
[2020-07-08] MEDS: LASIX IVP PRN ×2 (13:42→23:02)
[2020-07-08] MEDS: NS 500 ML IV 500 ML IV ONE (13:54)
[2020-07-08 14:21] LABS: BILIRUBIN,URINE NEGATIVE (NEGATIVE); BLOOD/HEMOGLOBIN,URINE 2+ (NEGATIVE); GLUCOSE, URINE NEGATIVE (NEGATIVE); KETONES,URINE NEGATIVE (NEGATIVE); LEUKOCYTE ESTERASE ,URINE 2+ (NEGATIVE); NITRITES,URINE POSITIVE (NEGATIVE); PROTEIN,URINE 3+ (NEGATIVE); UROBILINOGEN,URINE NORMAL (NORMAL)
[2020-07-08 14:30] LABS: APPEARANCE,URINE HAZY (CLEAR); BACTERIA,URINE 3+ /HPF (NEGATIVE); COLOR,URINE YELLOW (YELLOW); SQUAMOUS EPITHELIAL CELL,UR RARE /HPF (NEGATIVE)
[2020-07-08 14:31] LABS: AMORPHOUS SEDIMENT,UR 2+ /HPF (NEGATIVE); YEAST,URINE RARE /HPF (NEGATIVE)
[2020-07-08] MEDS ORDERED: PHARMACY CONSULT LTC MEDICATIONS XX SCH (17:00)
[2020-07-08] MEDS: LOVENOX INJ 30 MG SYR SC SCH (21:20)
[2020-07-09] MEDS: NS 500 ML IV 500 ML IV ONE (03:49)
[2020-07-09] MEDS ORDERED: MILK OF MAGNESIA PO SCH (09:00)
[2020-07-09 09:03] LABS: BASOPHILS # (AUTO) 0.1 X10^3/uL (0.0-0.1); BASOPHILS % (AUTO) 1.2 % (0.2-1.0); EOSINOPHILS # (AUTO) 0.3 x10^3/uL (0.0-0.2); EOSINOPHILS % (AUTO) 3.8 % (0.9-2.9); HEMATOCRIT 29.4 % (36.0-47.0); LYMPHOCYTES % (AUTO) 11.4 % (21.0-51.0); MEAN CORPUSCULAR HEMOGLOBIN 32.3 pg (27.0-34.0); MEAN CORPUSCULAR HGB CONC 34.4 g/dL (33.0-35.0); MEAN CORPUSCULAR VOLUME 94.1 fL (80.0-100.0); MEAN PLATELET VOLUME 7.6 fL (7.4-11.0); MONOCYTES # (AUTO) 0.5 x10^3/uL (0.3-0.8); MONOCYTES % (AUTO) 6.2 % (0.0-13.0); NEUTROPHILS # (AUTO) 6.6 x10^3/uL (2.2-4.8); NEUTROPHILS % (AUTO) 77.4 % (42.0-75.0); PLATELET COUNT 298 X10^3/uL (150.0-450.0); RED BLOOD COUNT 3.12 X10^6/uL (3.5-5.4); RED CELL DISTRIBUTION WIDTH 19.1 % (11.6-16.5); WHITE BLOOD COUNT 8.5 X10^3/uL (3.6-10.0)
[2020-07-09 09:06] LABS: HEMOGLOBIN 10.1 g/dL (12.0-16.0)
[2020-07-09 09:15] LABS: ALBUMIN 3.1 g/dL (3.4-5.0); CALCIUM 10.9 mg/dL (8.5-10.1); COR CA(FOR HYPOALB) 11.6 mg/dL (8.5-10.1); CREATININE 1.97 mg/dL (0.55-1.02); TOTAL PROTEIN 6.9 g/dL (6.4-8.2)
[2020-07-09] MEDS: PROTONIX INJ 40 MG VIAL IVP SCH (10:13)
[2020-07-09] MEDS: PEPCID 20 MG IV PREMIX* 20 MG/50 ML BAG IV SCH (10:14)
[2020-07-09] MEDS: LOVENOX INJ 30 MG SYR SC SCH (10:17)
[2020-07-09 13:08] VITALS: BP 158/69
[2020-07-09] MEDS: NS 1000 ML 1,000 ML IV SCH ×2 (13:08)
[2020-07-09] MEDS ORDERED: COLACE CAP 100 MG PO SCH (21:00)
== END 2020-07-09 14:25 ==
LOC: MED/SURG
PROVIDERS: ADMIT Internal Medicine; ATTEND Internal Medicine
DX: D50.0 Iron deficiency anemia secondary to blood loss (chronic); B96.1 Klebsiella pneumoniae [K. pneumoniae] as the cause of diseases classified elsewhere; E03.8 Other specified hypothyroidism; I51.7 Cardiomegaly; E11.65 Type 2 diabetes mellitus with hyperglycemia; N18.9 Chronic kidney disease, unspecified; I10 Essential (primary) hypertension; R53.1 Weakness; Z79.899 Other long term (current) drug therapy; I12.9 Hypertensive chronic kidney disease with stage 1 through stage 4 chronic kidney disease, or unspecified chronic kidney disease; F41.8 Other specified anxiety disorders; N17.8 Other acute kidney failure; B96.29 Other Escherichia coli [E. coli] as the cause of diseases classified elsewhere; R06.02 Shortness of breath; J81.0 Acute pulmonary edema; I25.10 Atherosclerotic heart disease of native coronary artery without angina pectoris; J44.9 Chronic obstructive pulmonary disease, unspecified

== ENCOUNTER 2020-07-10 15:35 | Inpatient (IN) ==
--- NOTE | 2020-07-10 16:02 | DR.GENAD ---
HPI Time Seen Time Seen by Provider: 07/10/20 15:58 HPI Comment HPI Comment: PATIENT RECENTLY DISCHARGED YESTERDAY NOW COMPLAINS OF EMESIS, INCREASING DYSPNEA , GENERALIZE SWELLING. DENIES ABDOMINAL PAIN OR CHEST PAIN. Complaint/Symptoms Chief Complaint Doctors Comments: DYSPNEA, SWELLING IN LEGS Nurses notes reviewed Nurses Notes Review: Yes Source History Provided: Patient and Intermediate Mode of Arrival Mode of Arrival: Stretcher Timing Onset of Chief Complaint: 07/10/20 Came on: Gradually Duration Duration: Constant Severity Severity: Moderate Associated Signs and Symptoms Associated Signs and Symptoms: SWELLING IN LEGS PMH PMH Past Medical History: Anemia, Anxiety, CHF, COPD, Coronary Artery Disease, CVA, Depression, Diabetes, Dialysis, Hypertension, [place] and Renal Disease Past Surgical History: Yes Surgical History: Angioplasty/Stents, CABG/Valve Surgery and Hysterectomy Family History Family Medical History: Diabetes Mellitus, Cancer, [place] and Hypertension Social History Do you use any recreational Drugs:: No ROS Review of Systems Constitutional: No Symptoms Reported Eyes: No Symptoms Reported ENTM: No Symptoms Reported Respiratoy: Short of Breath Cardiovascular: Edema Gastrointestinal/Abdominal: No Symptoms Reported Genitourinary: No Symptoms Reported Neurological: No Symptoms Reported Musculoskeletal: No Symptoms Reported Integumentary: No Symptoms Reported Hematologic/Lymphatic: No Symptoms Reported Endocrine: No Symptoms Reported Psychiatric: No Symptoms Reported All Other Systems: Reviewed and Negative PE Vital Signs Vitals: Temperature 98.4 F Pulse Rate 65 Respiratory Rate 20 Blood Pressure [Left Arm] 165/60 Blood Pressure 174/75 O2 Sat by Pulse Oximetry 97 General Limitations: Physical Limitation General Appearance: Alert and In No Apparent Distress Head Head Exam: Normal Inspection and Atraumatic Eyes Eye exam: Normal Appearance and PERRL ENT ENT Exam: Normal Exam and Normal Oropharynx Neck Neck Exam: Normal Inspection and Full ROM Chest Chest Inspection: Normal Inspection Respiratory Respiratory Exam: Bilateral: Crackles (BILAT INSPIRATORY CRACKLES) Cardiovascular Cardiovascular Exam: Regular Rate and Normal Rhythm Abdominal Exam Abdominal Exam: Normal Inspection, Normal Bowel Sounds and Tenderness (PERIUMBILICAL TENDERNESS) Abdominal Tenderness: Moderate Extremities Extremities Exam: Edema (12+ PITTING EDEMA) Back Back Exam: Normal Inspection and Full ROM Neurologic Neurological Exam: Alert and Oriented X3 Psychiatric Psychiatric Exam: Normal Affect and Normal Mood MDM Differential Diagnosis Differential Diagnosis: ACUTE CHF, PNEUMONIA, URINARY TRACT INFECTION COURSE Treatment Treatment: PATIENT WITH A POSITIVE URINE CULTURE , SALINE LOCK, LASIX 40MG IV, AFTER 2 SETS OF BLOOD CULTURES ROCEPHIN 1GM IMVP, DIURESIS 300ML URINE Reevaluation 1st: Unchanged Consultation Call Returned: 16:10 Consultation Comments: DISCUSSED FINDINGS WITH DR WESTBROOK FOR ADMIT ROR Labs Reviewed Laboratory Results Reviewed?: Yes Result Diagrams: 07/10/20 16:46 07/10/20 16:46 Laboratory: WBC 7.4 X10^3/uL (3.6-10.0) 07/10/20 16:46 RBC 3.09 X10^6/uL (3.5-5.4) L 07/10/20 16:46 Hgb 9.9 g/dL (12.0-16.0) L 07/10/20 16:46 Hct 29.5 % (36.0-47.0) L 07/10/20 16:46 MCV 95.3 fL (80.0-100.0) 07/10/20 16:46 MCH 31.9 pg (27.0-34.0) 07/10/20 16:46 MCHC 33.5 g/dL (33.0-35.0) 07/10/20 16:46 RDW 18.5 % (11.6-16.5) H 07/10/20 16:46 Plt Count 306 X10^3/uL (150.0-450.0) 07/10/20 16:46 MPV 7.6 fL (7.4-11.0) 07/10/20 16:46 Neut % (Auto) 76.5 % (42.0-75.0) H 07/10/20 16:46 Lymph % (Auto) 14.6 % (21.0-51.0) L 07/10/20 16:46 Colbert % (Auto) 6.6 % (0.0-13.0) 07/10/20 16:46 Eos % (Auto) 1.8 % (0.9-2.9) 07/10/20 16:46 Baso % (Auto) 0.5 % (0.2-1.0) 07/10/20 16:46 Neut # (Auto) 5.6 x10^3/uL (2.2-4.8) H 07/10/20 16:46 Lymph # (Auto) 1.1 X10^3/uL (1.3-2.9) L 07/10/20 16:46 Colbert # (Auto) 0.5 x10^3/uL (0.3-0.8) 07/10/20 16:46 Eos # (Auto) 0.1 x10^3/uL (0.0-0.2) 07/10/20 16:46 Baso # (Auto) 0.0 X10^3/uL (0.0-0.1) 07/10/20 16:46 Absolute Nucleated RBC 0.2 /100WBC 07/10/20 16:46 Sodium 147 mmol/L (136-145) H 07/10/20 16:46 Corrected Sodium 148 mmol/L (136-145) H 07/10/20 16:46 Potassium 4.3 mmol/L (3.5-5.1) 07/10/20 16:46 Chloride 107 mmol/L (98-107) 07/10/20 16:46 Carbon Dioxide 37.4 mmol/L (21-32) H 07/10/20 16:46 BUN 32 mg/dL (7-18) H 07/10/20 16:46 Creatinine 2.13 mg/dL (0.55-1.02) H 07/10/20 16:46 Est GFR (MDRD) Af Amer 30 (>60) L 07/10/20 16:46 Est GFR (MDRD) Non-Af 25 (>60) L 07/10/20 16:46 Glucose 157 mg/dL (65-99) H 07/10/20 16:46 Calcium 11.0 mg/dL (8.5-10.1) H 07/10/20 16:46 Corrected Calcium 11.7 mg/dL (8.5-10.1) H 07/10/20 16:46 Total Bilirubin 0.40 mg/dL (0.2-1.0) 07/10/20 16:46 AST 14 Units/L (15-37) L 07/10/20 16:46 ALT 22 Units/L (12-78) 07/10/20 16:46 Alkaline Phosphatase 97 Units/L (46-116) 07/10/20 16:46 Troponin I < 0.02 ng/mL (0-1.5) 07/10/20 16:46 B-Natriuretic Peptide 1130 pg/mL (0-79) H* 07/10/20 16:46 Total Protein 6.9 g/dL (6.4-8.2) 07/10/20 16:46 Albumin 3.1 g/dL (3.4-5.0) L 07/10/20 16:46 Globulin 3.8 g/dL (2.5-4.5) 07/10/20 16:46 Albumin/Globulin Ratio 0.8 Ratio (1.1-2.1) L 07/10/20 16:46 Amylase 19 Units/L (25-115) L 07/10/20 16:46 Lipase 40 Units/L (73-393) L 07/10/20 16:46 SARS CoV-2 RNA Rapid LEIGH Negative (NEGATIVE) 07/10/20 18:14 XRAY X-ray Results: PORTABLE CHEST XRAY - MODERATE CARDIOMEGALY WITH INTERSTITIAL PULMONARY EDEMA EKG Rate: 61 [place]: Normal Rhythm: NSR (SHORT PA INTERVAL, ) Block: IVCD Opioid Opioid Risk Tool Age (Taye box if 16-45): No History of Preadolescent Sexual Abuse: No Total: 0 Total Score Risk Category: Low Risk Copyright: Shade [place] predicting aberrant behaviors Diagnosis Discharge Problem: Acute CHF (congestive heart failure), Urinary tract infection
[2020-07-10] MEDS ORDERED: LASIX IVP STA (16:06)
[2020-07-10] MEDS ORDERED: LASIX IVP ONE (16:18)
[2020-07-10 16:54] LABS: BASOPHILS % (AUTO) 0.5 % (0.2-1.0); EOSINOPHILS # (AUTO) 0.1 x10^3/uL (0.0-0.2); EOSINOPHILS % (AUTO) 1.8 % (0.9-2.9); HEMATOCRIT 29.5 % (36.0-47.0); HEMOGLOBIN 9.9 g/dL (12.0-16.0); LYMPHOCYTES # (AUTO) 1.1 X10^3/uL (1.3-2.9); LYMPHOCYTES % (AUTO) 14.6 % (21.0-51.0); MEAN CORPUSCULAR HEMOGLOBIN 31.9 pg (27.0-34.0); MEAN CORPUSCULAR HGB CONC 33.5 g/dL (33.0-35.0); MEAN CORPUSCULAR VOLUME 95.3 fL (80.0-100.0); MEAN PLATELET VOLUME 7.6 fL (7.4-11.0); MONOCYTES # (AUTO) 0.5 x10^3/uL (0.3-0.8); MONOCYTES % (AUTO) 6.6 % (0.0-13.0); NEUTROPHILS # (AUTO) 5.6 x10^3/uL (2.2-4.8); NEUTROPHILS % (AUTO) 76.5 % (42.0-75.0); PLATELET COUNT 306 X10^3/uL (150.0-450.0); RED BLOOD COUNT 3.09 X10^6/uL (3.5-5.4); RED CELL DISTRIBUTION WIDTH 18.5 % (11.6-16.5); WHITE BLOOD COUNT 7.4 X10^3/uL (3.6-10.0)
[2020-07-10 17:07] LABS: ALANINE AMINOTRANSFERASE 22 Units/L (12-78); ALBUMIN 3.1 g/dL (3.4-5.0); ALKALINE PHOSPHATASE 97 Units/L (46-116); AMYLASE 19 Units/L (25-115); ASPARTATE AMINO TRANSFERASE 14 Units/L (15-37); BLOOD UREA NITROGEN 32 mg/dL (7-18); CARBON DIOXIDE 37.4 mmol/L (21-32); CHLORIDE 107 mmol/L (98-107); COR CA(FOR HYPOALB) 11.7 mg/dL (8.5-10.1); COR NA(FOR HYPERGLY) 148 mmol/L (136-145); CREATININE 2.13 mg/dL (0.55-1.02); LIPASE 40 Units/L (73-393); SODIUM 147 mmol/L (136-145); TOTAL PROTEIN 6.9 g/dL (6.4-8.2); TROPONIN I < 0.02 ng/mL (0-1.5); eGFR NON BLACK RACES 25 (>60)
--- NOTE | 2020-07-10 17:40 | CT ---
EXAM: CT ABDOMEN AND PELVIS WITHOUT INTRAVENOUS CONTRASTHISTORY: Nausea and vomiting. Shortness of breath.TECHNIQUE: Spiral axial CT images are obtained through the abdomen and pelvis without the administration of intravenous contrast. Additional coronal and sagittal reformatted images are reconstructed.DOSIMETRY: Total DLP 1424.7 mGycm; CTDI 27.8 mGyCOMPARISON: None available.FINDINGS:GASTROINTESTINAL TRACT: There is no evidence for bowel herniation, bowel obstruction, colitis or diverticulitis. A normal-appearing appendix is seen.GENITOURINARY SYSTEM: The kidneys are unremarkable. There is no ureteral calculus or stigmata of obstructive uropathy. A Leggett balloon catheter is noted within a collapsed urinary bladder.CT ABDOMEN: Severe aortoiliac atherosclerotic disease, without aneurysm formation. Approximately 4.5 cm AP by 3.5 cm transverse by 5 cm CC nonspecific right adrenal nodule (10.8HU, and approximately 2.5 cm CC by 1.7 cm transverse by 2.2 cm CC nonspecific left adrenal nodule (0.65 HU) which may represent an adrenal adenomas; DDX includes adrenal adenocarcinomas, metastatic lesions, and pheochromocytomas. Consider follow-up evaluation with dedicated adrenal MRI for further characterization as currently warranted. The liver, spleen, pancreas, left adrenal gland, gallbladder, and inferior vena cava are within normal limits for a noncontrast CT scan. There is no intra-abdominal or retroperitoneal lymphadenopathy, free fluid, or free air seen. No abdominal herniation is noted.CT PELVIS: Status post hysterectomy. The visualized bony structures are within normal limits. No pelvic sidewall or inguinal lymphadenopathy is seen. No inguinal herniation is noted. No free fluid or free air is seen. There are tiny bilateral pelvic calcifications in keeping with phleboliths.LUNG BASES: The lung bases are clear.IMPRESSION:1. No gross acute abnormality seen.2. No evidence for renal stone disease or obstructive uropathy.3. No evidence for acute appendicitis, bowel herniation/obstruction, colitis or diverticulitis seen.4. No free fluid, free air or lymphadenopathy seen.5. Approximately 4.5 cm AP by 3.5 cm transverse by 5 cm CC nonspecific right adrenal nodule (10.8HU, and approximately 2.5 cm CC by 1.7 cm transverse by 2.2 cm CC nonspecific left adrenal nodule (0.65 HU) which may represent an adrenal adenomas; DDX includes adrenal adenocarcinomas, metastatic lesions, and pheochromocytomas. Consider follow-up evaluation with dedicated adrenal MRI for further characterization as currently warranted.Electronically signed by: Temo Bauer (Jul 10, 2020 17:38:16)
[2020-07-10] MEDS ORDERED: ROCEPHIN 1 GRAM IV PREMIX 1 G/50 ML IV.SOLN. IV ONE ×2 (18:02→18:22)
[2020-07-10] MEDS ORDERED: NS 250 ML IV 250 ML IV ONE (18:22)
[2020-07-10] MEDS ORDERED: DUONEB 0.5 MG/3 MG (3 mL) NEB PRN (20:43)
[2020-07-10] MEDS ORDERED: DUONEB 0.5 MG/3 MG (3 mL) NEB ONE (20:52)
--- NOTE | 2020-07-10 20:52 | RAD ---
PROCEDURE: Chest X-ray 1 View .HISTORY: Short of breath with nausea and vomiting.TECHNIQUE: AP view .COMPARISON: 07/09/2020.TECHNICAL QUALITY: Satisfactory .FINDINGS:Unchanged right internal jugular dialysis catheter.Unchanged mild cardiomegaly with previous sternotomy.Mediastinum and hilar regions show no masses or lymphadenopathy .Minimally increased.No pulmonary consolidation, masses, pleural fluid, or pneumothorax .No acute bony abnormality .IMPRESSION:Cardiomegaly with mild central vascular congestion slightly increased compared to previous study.Electronically signed by: Ben Clark (Jul 10, 2020 20:49:54)
[2020-07-10] MEDS: ROCEPHIN 1 GRAM IV PREMIX 1 G/50 ML IV.SOLN. IV SCH (21:42)
[2020-07-10] MEDS: COREG TAB 12.5 MG PO SCH (21:50)
[2020-07-10] MEDS: ENTRESTO 24/26 MG TAB PO SCH (21:50)
[2020-07-10] MEDS: LIPITOR TAB 40 MG PO SCH (21:50)
[2020-07-10] MEDS: KEPPRA TAB 500 MG PO SCH (21:50)
[2020-07-10] MEDS: HumuLIN R SUBCUT SCH (21:51)
[2020-07-10 22:09] VITALS: BMI 42.5
[2020-07-11] MEDS: HumuLIN R SUBCUT SCH (05:37)
[2020-07-11 07:25] LABS: BASOPHILS # (AUTO) 0.1 X10^3/uL (0.0-0.1); BASOPHILS % (AUTO) 1.3 % (0.2-1.0); EOSINOPHILS # (AUTO) 0.2 x10^3/uL (0.0-0.2); EOSINOPHILS % (AUTO) 2.7 % (0.9-2.9); HEMOGLOBIN 9.4 g/dL (12.0-16.0); LYMPHOCYTES # (AUTO) 1.1 X10^3/uL (1.3-2.9); LYMPHOCYTES % (AUTO) 17.8 % (21.0-51.0); MEAN CORPUSCULAR HEMOGLOBIN 32.2 pg (27.0-34.0); MEAN CORPUSCULAR HGB CONC 33.6 g/dL (33.0-35.0); MEAN CORPUSCULAR VOLUME 95.7 fL (80.0-100.0); MEAN PLATELET VOLUME 7.6 fL (7.4-11.0); MONOCYTES # (AUTO) 0.5 x10^3/uL (0.3-0.8); MONOCYTES % (AUTO) 7.8 % (0.0-13.0); NEUTROPHILS # (AUTO) 4.4 x10^3/uL (2.2-4.8); NEUTROPHILS % (AUTO) 70.4 % (42.0-75.0); PLATELET COUNT 267 X10^3/uL (150.0-450.0); RED BLOOD COUNT 2.93 X10^6/uL (3.5-5.4); RED CELL DISTRIBUTION WIDTH 18.6 % (11.6-16.5); WHITE BLOOD COUNT 6.3 X10^3/uL (3.6-10.0)
[2020-07-11 07:39] LABS: ALANINE AMINOTRANSFERASE 22 Units/L (12-78); ALBUMIN 2.8 g/dL (3.4-5.0); ALKALINE PHOSPHATASE 89 Units/L (46-116); ASPARTATE AMINO TRANSFERASE 16 Units/L (15-37); BLOOD UREA NITROGEN 30 mg/dL (7-18); CALCIUM 10.8 mg/dL (8.5-10.1); CARBON DIOXIDE 34.6 mmol/L (21-32); CHLORIDE 108 mmol/L (98-107); COR CA(FOR HYPOALB) 11.8 mg/dL (8.5-10.1); COR NA(FOR HYPERGLY) 148 mmol/L (136-145); CREATININE 2.02 mg/dL (0.55-1.02); SODIUM 147 mmol/L (136-145); TOTAL PROTEIN 6.3 g/dL (6.4-8.2); TROPONIN I < 0.02 ng/mL (0-1.5); eGFR NON BLACK RACES 26 (>60)
[2020-07-11] MEDS ORDERED: ZOLOFT ONE (08:10)
[2020-07-11] MEDS: LASIX IVP SCH ×2 (08:51→16:38)
[2020-07-11] MEDS: FOLIC ACID TAB 1 MG PO SCH (08:52)
[2020-07-11] MEDS: PLAVIX PO SCH (08:53)
[2020-07-11] MEDS: SEROquel TAB 25 mg PO SCH (08:54)
[2020-07-11] MEDS: ENTRESTO 24/26 MG TAB PO SCH ×2 (08:54→20:06)
[2020-07-11] MEDS: ZOLOFT PO SCH (08:54)
[2020-07-11] MEDS: CORDARONE TAB 200 MG PO SCH (08:54)
[2020-07-11] MEDS: KEPPRA TAB 500 MG PO SCH ×2 (08:54→20:06)
[2020-07-11] MEDS: COREG TAB 12.5 MG PO SCH ×2 (08:54→20:06)
[2020-07-11] MEDS: NORVASC TAB 5 MG PO SCH (08:54)
[2020-07-11] MEDS: SYNTHROID 25 mcg TAB PO SCH (08:54)
[2020-07-11 09:29] LABS: BILIRUBIN,URINE NEGATIVE (NEGATIVE); BLOOD/HEMOGLOBIN,URINE 2+ (NEGATIVE); GLUCOSE, URINE NEGATIVE (NEGATIVE); KETONES,URINE NEGATIVE (NEGATIVE); LEUKOCYTE ESTERASE ,URINE 2+ (NEGATIVE); NITRITES,URINE POSITIVE (NEGATIVE); PROTEIN,URINE 4+ (NEGATIVE); UROBILINOGEN,URINE NORMAL (NORMAL)
[2020-07-11 09:39] LABS: APPEARANCE,URINE CLOUDY (CLEAR); COLOR,URINE YELLOW (YELLOW)
[2020-07-11 09:40] LABS: AMORPHOUS SEDIMENT,UR 1+ /HPF (NEGATIVE); BACTERIA,URINE 1+ /HPF (NEGATIVE); SQUAMOUS EPITHELIAL CELL,UR FEW /HPF (NEGATIVE); TRANSITIONAL EPI CELLS,URINE NUMEROUS /HPF (NEGATIVE); YEAST,URINE FEW /HPF (NEGATIVE)
--- NOTE | 2020-07-11 13:18 | DR.H&P ---
H&P - History & Physical for Day of: H&P Date: 07/10/20 - Chief Complaint Chief Complaint: CCC, SOB - History of Present Illness History of Present Illness: PT IS 65 WF ER ADMISSION WITH CCC, SOB, UTI. PT HAS PMH OF DM, HX CVA, CAD, HTN, OA. PT STARTED ON IV ROCEPHIN IN ER. PLAN TO ADMIT, EVALUATE AND TREAT ACUTE ILLNESS. - Past Medical History Past Medical History: [place], Coronary Artery Disease, Hypertension, Diabetes, Renal Disease, Dialysis, Depression, Anxiety, Anemia, CVA, COPD, CHF - Past Surgical History Surgical History: Angioplasty/Stents, CABG/Valve Surgery, Hysterectomy - Family History Family Medical History: Diabetes Mellitus, Cancer, [place], Hypertension - Social History Does patient currently use any type of tobacco product: No Have you used tobacco products in the last 12 months: No Type of Tobacco Use: None Does any household member use tobacco: No Alcohol Use: None Drug Use: None - Medications Home Medications: Sulfa (Sulfonamide Antibiotics) [SULFA] Allergy (Verified 12/14/16 13:55) ciprofloxacin [From Cipro] Adverse Reaction (Verified 04/04/18 11:29) CONTINUE taking the following medications amoxicillin-pot clavulanate 1 tab PO BID 07/10/20 [History] - Review of Systems Constitutional: Weakness Eyes: No Symptoms Reported ENT: No Symptoms Reported Respiratory: Cough, Shortness of Breath, Wheezing Cardiovascular: Edema Gastrointestinal: No Symptoms Reported Genitourinary: No Symptoms Reported Musculoskeletal: No Symptoms Reported Skin: No Symptoms Reported Neurological: No Symptoms Reported, Weakness - Physical Exam Vital Signs: Temperature 98.8 F Pulse Rate [Brachial] 58 Pulse Rate 65 Respiratory Rate 20 Blood Pressure [Right Arm] 165/73 Blood Pressure [Left Arm] 165/60 Blood Pressure 174/75 O2 Sat by Pulse Oximetry 97 Oriented: Normal Eyes: Normal Ear: Normal Nose: Normal Throat: Normal Respiratory: Rhonchi Throughout, RML Diminished, RLL Diminished, LML Diminished, LLL Diminished Cardiovascular: Normal, Edema : Normal Auscultation: Bowel Sounds: Normal Palpation: Normal Tenderness: Normal Skin: Decreased [place] Musculoskeletal: Normal Psychiatric: Anxiety Affect: Anxious Speech Pattern: Appropriate, Delayed - Assessment/Plan (1) COPD (chronic obstructive pulmonary disease) Qualifiers: COPD type: COPD with acute exacerbation Qualified Code(s): J44.1 - Chronic obstructive pulmonary disease with (acute) exacerbation Status: Chronic Plan: ADMIT, CXR AND EKG ON ADMISSION. IV HDYRATION, STRICT I&OS, RESP THERAPY. BS CONTROL, CARDIAC MONITORING, VERIFY HOME MEDICATION. BIPAP PRN, IV ATBX, BC AND UC ON ADMISSION. SPUTUM CULTURE (2) Urinary tract infection Status: Acute (3) Acute exacerbation of CHF (congestive heart failure) Status: Acute (4) CAD (coronary artery disease) Qualifiers: Coronary Disease-Associated Artery/Lesion type: [place] artery [place] vs. transplanted heart: [place] heart Associated angina: with stable angina Qualified Code(s): I25.118 - Atherosclerotic heart disease of [place] coronary artery with other forms of angina pectoris Status: Chronic (5) Diabetes mellitus, type II Qualifiers: Diabetes mellitus retort setter insulin use: with retort setter use Diabetes mellitus complication status: with hyperglycemia Qualified Code(s): E11.65 - Type 2 diabetes mellitus with hyperglycemia; Z79.4 - operations representative (current) use of insulin Status: Chronic (6) HTN (hypertension) Qualifiers: Hypertension type: essential hypertension Qualified Code(s): I10 - Essential (primary) hypertension Status: Chronic - Allergies Allergies/Adverse Reactions: Allergies Allergy/AdvReac Type Severity Reaction Status Date / Time Sulfa (Sulfonamide Allergy Verified 12/14/16 13:55 Antibiotics) [SULFA] ciprofloxacin [From Cipro] AdvReac Verified 04/04/18 11:29
[2020-07-11 14:12] LABS: ABG BASE EXCESS 10.4 mmol/L (-2.0-2.0)
[2020-07-11 14:13] LABS: ABG HCO3 37.9 mmol/L (22-26)
[2020-07-11 14:14] LABS: ABG ALLEN TEST POS
--- NOTE | 2020-07-11 16:37 | RAD ---
HISTORYchfSTUDYCHEST, 1 VIEWCOMPARISONNo recent comparison studiesTECHNIQUEPortable chest x-rayFINDINGSThere is evidence of cardiomegaly with central vascular congestion, cephalization of flow, and coalescent perihilar ground-glass opacities suggesting pulmonary edema pattern. A small left-sided pleural effusion and atelectasis are observed. Right-sided dialysis catheter terminates at the caval atrial junction. Postoperative changes of median sternotomy and coronary bypass surgery are evident. No pneumothorax identified.IMPRESSIONCardiomegaly, central vascular congestion and perihilar edemaLeft basilar pleural parenchymal opacity likely corresponding to effusion and atelectasis.Electronically signed by: SARAH VILLATORO (Jul 11, 2020 16:39:11)
[2020-07-11] MEDS ORDERED: SNACK - Diabetic Appropriate PO SCH (20:00)
[2020-07-11] MEDS: LIPITOR TAB 40 MG PO SCH (20:06)
[2020-07-11] MEDS: SNACK - Diabetic Appropriate PO SCH (20:06)
[2020-07-11] MEDS: ROCEPHIN 1 GRAM IV PREMIX 1 G/50 ML IV.SOLN. IV SCH (21:15)
[2020-07-12 05:13] LABS: BASOPHILS % (AUTO) 0.7 % (0.2-1.0); EOSINOPHILS # (AUTO) 0.3 x10^3/uL (0.0-0.2); HEMATOCRIT 28.7 % (36.0-47.0); HEMOGLOBIN 9.8 g/dL (12.0-16.0); LYMPHOCYTES # (AUTO) 1.2 X10^3/uL (1.3-2.9); LYMPHOCYTES % (AUTO) 19.3 % (21.0-51.0); MEAN CORPUSCULAR HEMOGLOBIN 32.5 pg (27.0-34.0); MEAN CORPUSCULAR HGB CONC 34.1 g/dL (33.0-35.0); MEAN CORPUSCULAR VOLUME 95.3 fL (80.0-100.0); MEAN PLATELET VOLUME 7.9 fL (7.4-11.0); MONOCYTES # (AUTO) 0.6 x10^3/uL (0.3-0.8); MONOCYTES % (AUTO) 8.9 % (0.0-13.0); NEUTROPHILS # (AUTO) 4.2 x10^3/uL (2.2-4.8); NEUTROPHILS % (AUTO) 67.1 % (42.0-75.0); PLATELET COUNT 277 X10^3/uL (150.0-450.0); RED BLOOD COUNT 3.01 X10^6/uL (3.5-5.4); RED CELL DISTRIBUTION WIDTH 17.9 % (11.6-16.5); WHITE BLOOD COUNT 6.3 X10^3/uL (3.6-10.0)
[2020-07-12 05:27] LABS: ALBUMIN 2.8 g/dL (3.4-5.0); CALCIUM 10.7 mg/dL (8.5-10.1); CARBON DIOXIDE 34.8 mmol/L (21-32); COR CA(FOR HYPOALB) 11.7 mg/dL (8.5-10.1); CREATININE 1.99 mg/dL (0.55-1.02); TOTAL PROTEIN 6.5 g/dL (6.4-8.2)
[2020-07-12] MEDS ORDERED: PHARMACY CONSULT LTC MEDICATIONS XX SCH (09:00)
[2020-07-12] MEDS ORDERED: ZOLOFT ONE (09:28)
[2020-07-12] MEDS: LASIX IVP SCH ×2 (09:31→16:51)
[2020-07-12] MEDS: LOVENOX INJ 40 MG SYR SC SCH (09:32)
[2020-07-12] MEDS: NORVASC TAB 5 MG PO SCH (09:34)
[2020-07-12] MEDS: SEROquel TAB 25 mg PO SCH (09:35)
[2020-07-12] MEDS: CORDARONE TAB 200 MG PO SCH (09:35)
[2020-07-12] MEDS: FOLIC ACID TAB 1 MG PO SCH (09:35)
[2020-07-12] MEDS: PLAVIX PO SCH (09:35)
[2020-07-12] MEDS: COREG TAB 12.5 MG PO SCH ×2 (09:35→21:13)
[2020-07-12] MEDS: ENTRESTO 24/26 MG TAB PO SCH ×2 (09:35→21:12)
[2020-07-12] MEDS: ZOLOFT PO SCH (09:35)
[2020-07-12] MEDS: SYNTHROID 25 mcg TAB PO SCH (09:35)
[2020-07-12] MEDS: KEPPRA TAB 500 MG PO SCH ×2 (09:35→21:13)
[2020-07-12] MEDS ORDERED: LASIX IVP ONE (09:55)
[2020-07-12] MEDS: HumuLIN R SUBCUT PRN ×2 (11:11→16:56)
[2020-07-12] MEDS: SNACK - Diabetic Appropriate PO SCH (20:30)
[2020-07-12] MEDS: ROCEPHIN 1 GRAM IV PREMIX 1 G/50 ML IV.SOLN. IV SCH (21:13)
[2020-07-12] MEDS: LIPITOR TAB 40 MG PO SCH (21:13)
[2020-07-13 05:40] LABS: BASOPHILS # (AUTO) 0.1 X10^3/uL (0.0-0.1); EOSINOPHILS # (AUTO) 0.3 x10^3/uL (0.0-0.2); EOSINOPHILS % (AUTO) 3.9 % (0.9-2.9); HEMATOCRIT 28.3 % (36.0-47.0); HEMOGLOBIN 9.7 g/dL (12.0-16.0); LYMPHOCYTES # (AUTO) 1.4 X10^3/uL (1.3-2.9); LYMPHOCYTES % (AUTO) 19.2 % (21.0-51.0); MEAN CORPUSCULAR HEMOGLOBIN 32.3 pg (27.0-34.0); MEAN CORPUSCULAR HGB CONC 34.1 g/dL (33.0-35.0); MEAN CORPUSCULAR VOLUME 94.6 fL (80.0-100.0); MEAN PLATELET VOLUME 7.8 fL (7.4-11.0); MONOCYTES # (AUTO) 0.6 x10^3/uL (0.3-0.8); MONOCYTES % (AUTO) 8.1 % (0.0-13.0); NEUTROPHILS # (AUTO) 4.9 x10^3/uL (2.2-4.8); NEUTROPHILS % (AUTO) 67.8 % (42.0-75.0); PLATELET COUNT 283 X10^3/uL (150.0-450.0); RED BLOOD COUNT 2.99 X10^6/uL (3.5-5.4); RED CELL DISTRIBUTION WIDTH 18.2 % (11.6-16.5); WHITE BLOOD COUNT 7.2 X10^3/uL (3.6-10.0)
--- NOTE | 2020-07-13 05:45 | RAD ---
PROCEDURE: CHEST, 1 VIEW .HISTORY: Short of breath.TECHNIQUE: AP view.COMPARISON: 07/11/2020.TECHNICAL QUALITY: Satisfactory .FINDINGS:Unchanged start size upper limits of normal with previous sternotomy.Unchanged dialysis catheter right internal jugular vein.Improved edema at the lung bases and improved central vascularity compared to previous study. No pleural fluid or pneumothorax.IMPRESSION:Improved congestive heart failure.Electronically signed by: Ben Clark (Jul 13, 2020 05:43:28)
[2020-07-13 05:52] LABS: ALBUMIN 2.7 g/dL (3.4-5.0); CALCIUM 10.8 mg/dL (8.5-10.1); CARBON DIOXIDE 34.6 mmol/L (21-32); COR CA(FOR HYPOALB) 11.8 mg/dL (8.5-10.1); CREATININE 1.93 mg/dL (0.55-1.02); TOTAL PROTEIN 6.3 g/dL (6.4-8.2)
[2020-07-13] MEDS ORDERED: ZOLOFT ONE (09:36)
[2020-07-13] MEDS: LASIX IVP SCH (09:38)
[2020-07-13] MEDS: COREG TAB 12.5 MG PO SCH (09:39)
[2020-07-13] MEDS: LOVENOX INJ 40 MG SYR SC SCH (09:39)
[2020-07-13] MEDS: KEPPRA TAB 500 MG PO SCH (09:39)
[2020-07-13] MEDS: SYNTHROID 25 mcg TAB PO SCH (09:39)
[2020-07-13] MEDS: FOLIC ACID TAB 1 MG PO SCH (09:39)
[2020-07-13] MEDS: ENTRESTO 24/26 MG TAB PO SCH (09:39)
[2020-07-13] MEDS: ZOLOFT PO SCH (09:39)
[2020-07-13] MEDS: NORVASC TAB 5 MG PO SCH (09:39)
[2020-07-13] MEDS: SEROquel TAB 25 mg PO SCH (09:40)
[2020-07-13] MEDS: PLAVIX PO SCH (09:40)
[2020-07-13] MEDS: CORDARONE TAB 200 MG PO SCH (09:40)
--- NOTE | 2020-07-13 10:22 | PCM.PROG ---
Progress Note - Progress Note for Day of Date of Exam: 07/12/20 - Subjective Subjective: WAS A READMISSION FOR TREATMENT OF CHF EXACERBATION, COPD EXACERBATION, AND A URINARY TRACT INFECTION. SHE HAS A PMH OF COPF, CHF, CAD, DM II, AND HTN. SHE WAS DISCHARGED FROM THE HOSPITAL LAST WEEK AFTER TREATMENT OF ACUTE RENAL FAILURE, ANEMIA, AND A UTI. SHE WAS DISCHARGED HOME ON AUGMENTIN 875/125MG PO BID. [facility] STAFF BROUGHT PATIENT BACK TO THE ER WITH REPORTS OF NAUSEA AND VOMITING, INCREASING DYSPNEA, AND GENERALIZED SWELLING. ON MORNING ROUNDS, PATIENT IS ALERT AND OREINTED, SITTING UP IN BED. SHE CONTINUES WITH COMPLAINTS OF WEAKNESS AND SHORTNESS OF BREATH. ON EXAMINATION, HEART IS REGULAR IN RATE AND RHYTHM. BILATERAL LUNGS ARE NOTED TO HAVE DIMINISHED LUNG SOUNDS THROUGHOUT. ABDOMEN IS ROUND, SOFT, AND NON-TENDER WITH NORMAL BOWEL SOUNDS NOTED IN ALL QUADRANTS. 1+ PITTING EDEMA NOTED TO UPPER AND LOWER EXTREMITIES. HER VITALS THIS MORNING ARE: 98.0-54-22-98%-172/74. LABS WERE OBTAINED. ABNORMAL LAB VALUES INCLUDE THE FOLLOWING: RBC 3.01, HGB 9.8, HCT 28.7, SODIUM 146, CHLORIDE 108, CARBON DIOXIDE 34.8, BUN 29, CREATININE 1.99, GLUCOSE 149, CALCIUM 10.7, AST 13, ALBUMIN 2.8. BLOOD AND URINE CULTURES ARE PENDING. SHE IS CURRENTLY RECEIVING LASIX 20MG IV BID, LOVENOX 40MG SC DAILY, ROCEPHIN 1G IV HS, HUMULIN R SLIDING SCALE. HOME MEDICATIONS OF ENTRESTO, ZOLOFT, SEROQUEL, SYNTHROID, KEPPRA, FOLIC ACID, PLAVIX, COREG, LIPITOR, NORVASC, CORDARONE, AND DUONEBS WERE ALSO RESUMED. TODAY, WE WILL INCREASE LASIX TO 40MG PO BID. OTHERWISE, WE WILL FOLLOW UP WITH AM LABS AND CONTINUE TO MONITOR. TIME SPENT ON CLINICAL ASSESSMENT, REVIEWING LABS AND IMAGING, DECISION MAKING, AND DOCUMENTATION GREATER THAN 75 MINUTES. - Past Medical Family Social History Allergies: Allergies Sulfa (Sulfonamide Antibiotics) [SULFA] Allergy (Verified 12/14/16 13:55) ciprofloxacin [From Cipro] Adverse Reaction (Verified 04/04/18 11:29) - Vital Signs and I&O's Vital Signs: Temperature 98.1 F Pulse Rate [Brachial] 59 Pulse Rate 48 Respiratory Rate 20 Blood Pressure [Right Arm] 158/73 Blood Pressure [Left Arm] 165/60 Blood Pressure 174/75 O2 Sat by Pulse Oximetry 97 Intake and Output: Intake & Output 07/10/20 07/11/20 07/12/20 07/13/20 11:59 11:59 11:59 11:59 Intake Total 570 / 570 590 / 590 1450 / 1450 Output Total 1300 / 1300 900 / 900 1150 / 1150 Balance -730 / -730 -310 / -310 300 / 300 - Physical Exam Oriented: Normal Eyes: Normal Ear: Normal Nose: Normal Throat: Normal Cardiovascular: Normal, Edema (BLE 1+ PITTING EDEMA ) : Normal Auscultation: Bowel Sounds: Normal Palpation: Normal Tenderness: Normal Skin: Decreased [place] Musculoskeletal: Normal Psychiatric: Anxiety Affect: Anxious Speech Pattern: Clear, Appropriate - Laboratory and Diagnostics Result Diagrams: 07/13/20 05:23 07/13/20 05:23 Labs: 07/11/20 09:01 Urine,Clean Catch Urine Culture - Final Enterococcus Faecalis 07/10/20 18:29 Blood Blood Culture - Preliminary 07/10/20 18:24 Blood Blood Culture - Preliminary Laboratory WBC 7.2 X10^3/uL (3.6-10.0) 07/13/20 05:23 RBC 2.99 X10^6/uL (3.5-5.4) L 07/13/20 05:23 Hgb 9.7 g/dL (12.0-16.0) L 07/13/20 05:23 Hct 28.3 % (36.0-47.0) L 07/13/20 05:23 MCV 94.6 fL (80.0-100.0) 07/13/20 05:23 MCH 32.3 pg (27.0-34.0) 07/13/20 05:23 MCHC 34.1 g/dL (33.0-35.0) 07/13/20 05:23 RDW 18.2 % (11.6-16.5) H 07/13/20 05:23 Plt Count 283 X10^3/uL (150.0-450.0) 07/13/20 05:23 MPV 7.8 fL (7.4-11.0) 07/13/20 05:23 Neut % (Auto) 67.8 % (42.0-75.0) 07/13/20 05:23 Lymph % (Auto) 19.2 % (21.0-51.0) L 07/13/20 05:23 [place] % (Auto) 8.1 % (0.0-13.0) 07/13/20 05:23 Eos % (Auto) 3.9 % (0.9-2.9) H 07/13/20 05:23 Baso % (Auto) 1.0 % (0.2-1.0) 07/13/20 05:23 Neut # (Auto) 4.9 x10^3/uL (2.2-4.8) H 07/13/20 05:23 Lymph # (Auto) 1.4 X10^3/uL (1.3-2.9) 07/13/20 05:23 [place] # (Auto) 0.6 x10^3/uL (0.3-0.8) 07/13/20 05:23 Eos # (Auto) 0.3 x10^3/uL (0.0-0.2) H 07/13/20 05:23 Baso # (Auto) 0.1 X10^3/uL (0.0-0.1) 07/13/20 05:23 Absolute Nucleated RBC 0.0 /100WBC 07/13/20 05:23 Sample Site Rrad 07/11/20 14:02 ABG pH 7.380 (7.35-7.45) 07/11/20 14:02 ABG pCO2 64.0 mmHg (35.0-45.0) H* 07/11/20 14:02 ABG pO2 104.0 mmHg (80.0-100.0) H 07/11/20 14:02 ABG HCO3 37.9 mmol/L (22-26) H* 07/11/20 14:02 ABG O2 Saturation 98.0 % (90-100) 07/11/20 14:02 ABG Base Excess 10.4 mmol/L (-2.0-2.0) H 07/11/20 14:02 Kevin Test Pos 07/11/20 14:02 A-a Gradient 44.0 mmHg 07/11/20 14:02 FiO2 32.0 07/11/20 14:02 Blood Gas Comments Pt shayy well elj 07/11/20 14:02 Sodium 146 mmol/L (136-145) H 07/13/20 05:23 Corrected Sodium 147 mmol/L (136-145) H 07/13/20 05:23 Potassium 3.7 mmol/L (3.5-5.1) 07/13/20 05:23 Chloride 107 mmol/L (98-107) 07/13/20 05:23 Carbon Dioxide 34.6 mmol/L (21-32) H 07/13/20 05:23 BUN 30 mg/dL (7-18) H 07/13/20 05:23 Creatinine 1.93 mg/dL (0.55-1.02) H 07/13/20 05:23 Est GFR (MDRD) Af Amer 34 (>60) L 07/13/20 05:23 Est GFR (MDRD) Non-Af 28 (>60) L 07/13/20 05:23 Glucose 137 mg/dL (65-99) H 07/13/20 05:23 POC Glucose (mg/dL) 149 mg/dL (65-99) H 07/13/20 05:55 Calcium 10.8 mg/dL (8.5-10.1) H 07/13/20 05:23 Corrected Calcium 11.8 mg/dL (8.5-10.1) H 07/13/20 05:23 Total Bilirubin 0.30 mg/dL (0.2-1.0) 07/13/20 05:23 AST 10 Units/L (15-37) L 07/13/20 05:23 ALT 24 Units/L (12-78) 07/13/20 05:23 Alkaline Phosphatase 91 Units/L (46-116) 07/13/20 05:23 Troponin I < 0.02 ng/mL (0-1.5) 07/11/20 07:17 B-Natriuretic Peptide 726 pg/mL (0-79) H* 07/13/20 05:23 Total Protein 6.3 g/dL (6.4-8.2) L 07/13/20 05:23 Albumin 2.7 g/dL (3.4-5.0) L 07/13/20 05:23 Globulin 3.6 g/dL (2.5-4.5) 07/13/20 05:23 Albumin/Globulin Ratio 0.8 Ratio (1.1-2.1) L 07/13/20 05:23 Amylase 19 Units/L (25-115) L 07/10/20 16:46 Lipase 40 Units/L (73-393) L 07/10/20 16:46 Specimen Type Clean catch urine 07/11/20 09:01 Urine Color Yellow (YELLOW) 07/11/20 09:01 Urine Appearance Cloudy (CLEAR) 07/11/20 09:01 Urine pH 6.0 (5.0 - 8.0) 07/11/20 09:01 Ur Specific [place] 1.015 (1.000-1.030) 07/11/20 09:01 Urine Protein 4+ (NEGATIVE) 07/11/20 09:01 Urine Glucose (UA) Negative (NEGATIVE) 07/11/20 09:01 Urine Ketones Negative (NEGATIVE) 07/11/20 09:01 Urine Occult Blood 2+ (NEGATIVE) 07/11/20 09:01 Urine Nitrite Positive (NEGATIVE) 07/11/20 09:01 Urine Bilirubin Negative (NEGATIVE) 07/11/20 09:01 Urine Urobilinogen Normal (NORMAL) 07/11/20 09:01 Ur Leukocyte Esterase 2+ (NEGATIVE) 07/11/20 09:01 Urine RBC 5-10 /HPF (0-3) A 07/11/20 09:01 Urine WBC 20-30 /HPF (0-5) A 07/11/20 09:01 Ur Squamous Epith Cells Few /HPF (NEGATIVE) 07/11/20 09:01 Ur Transition Epith Cell Numerous /HPF (NEGATIVE) 07/11/20 09:01 Amorphous Sediment 1+ /HPF (NEGATIVE) 07/11/20 09:01 Urine Bacteria 1+ /HPF (NEGATIVE) 07/11/20 09:01 Urine Yeast Few /HPF (NEGATIVE) 07/11/20 09:01 Ur Culture Indicated? No/not indicated 07/11/20 09:01 SARS CoV-2 RNA Rapid LEIGH Negative (NEGATIVE) 07/10/20 18:14 - Plan (1) COPD (chronic obstructive pulmonary disease) Status: Chronic Qualifiers: COPD type: COPD with acute exacerbation Qualified Code(s): J44.1 - Chronic obstructive pulmonary disease with (acute) exacerbation Plan: IV HDYRATION, STRICT I&OS, RESP THERAPY. BS CONTROL, CARDIAC MONITORING, VERIFY HOME MEDICATION. BIPAP PRN, IV ATBX, BLOOD AND URINE CULTURES PENDING. SPUTUM CULTURE (2) Urinary tract infection Status: Acute Qualifiers: Urinary tract infection type: acute cystitis Hematuria presence: with hematuria Qualified Code(s): N30.01 - Acute cystitis with hematuria (3) Acute exacerbation of CHF (congestive heart failure) Status: Acute Qualifiers: Heart failure type: unspecified Qualified Code(s): I50.9 - Heart failure, unspecified (4) CAD (coronary artery disease) Status: Chronic Qualifiers: Coronary Disease-Associated Artery/Lesion type: [place] artery [place] vs. 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
[2020-07-13] MEDS: HumuLIN R SUBCUT PRN (11:40)
[2020-07-13 12:12] VITALS: BP 178/84
[2020-07-13] MEDS ORDERED: LASIX IVP SCH (17:00)
== END 2020-07-13 12:20 | DRG 292 ==
LOC: ER 15:35 → MED/SURG 20:45
PROVIDERS: ADMIT Internal Medicine; ATTEND Internal Medicine
DX: Z20.822 Contact with and (suspected) exposure to COVID-19; R60.0 Localized edema; I25.118 Atherosclerotic heart disease of native coronary artery with other forms of angina pectoris; R94.31 Abnormal electrocardiogram [ECG] [EKG]; E11.65 Type 2 diabetes mellitus with hyperglycemia; I11.0 Hypertensive heart disease with heart failure; I50.9 Heart failure, unspecified; Z79.4 Long term (current) use of insulin; J44.1 Chronic obstructive pulmonary disease with (acute) exacerbation; B95.2 Enterococcus as the cause of diseases classified elsewhere; R06.02 Shortness of breath; R11.2 Nausea with vomiting, unspecified; N30.01 Acute cystitis with hematuria; R26.89 Other abnormalities of gait and mobility

== ENCOUNTER 2020-07-26 16:43 | Observation (INO) ==
[2020-07-26 17:13] LABS: ABG BASE EXCESS 10.7 mmol/L (-2.0-2.0)
[2020-07-26 17:14] LABS: ABG ALLEN TEST POS; ABG HCO3 36.7 mmol/L (22-26)
[2020-07-26] MEDS ORDERED: LASIX IVP ONE ×2 (17:24→18:09)
--- NOTE | 2020-07-26 17:30 | DR.SOBA ---
HPI Time Seen Time Seen by Provider: 07/26/20 16:56 Primary Care Physician Primary Care Physician: KAYLIN BECKWITH HPI Comment HPI Comment: SOB, malaise. worse w lying down. Complaints Chief Complaint:: PT TO ER FOR EVAL , PER [facility] PT STATED TO BE HAVING > SOB, CCC, AND > BNAT, 1100, PT ON 02 2 LPM, AT [facility],, ( UPON ARRIVAL TO ER EXP WHEEZES NOTED , NO DISTRESS NOTED PT HAS SWELLING TO PT ANKLES AND FEET 1 PLUS PITTING EDEMA NOTED, BR COVID-19 Coronavirus risk:travel/contact w/high risk person: No Has patient experienced Coronavirus symptoms: No Source History Provided: Patient and Snf Mode of Arrival Mode of Arrival: Stretcher Timing Onset of Chief Complaint: 07/26/20 PMH PMH Past Medical History: Yes Past Medical History: Anemia, Anxiety, CHF, COPD, Coronary Artery Disease, CVA, Depression, Diabetes, Dialysis, Hypertension, [place] and Renal Disease Past Surgical History: Yes Surgical History: Angioplasty/Stents, CABG/Valve Surgery and Hysterectomy Family History History of Family Medical Conditions: No Family Medical History: Diabetes Mellitus, Cancer, [place] and Hypertension Social History Does patient currently use any type of tobacco product: No Have you used tobacco products in the last 12 months: No Type of Tobacco Use: None Does any household member use tobacco: No Alcohol Use: None Do you use any recreational Drugs:: No Lives With: Family Lives Where: Home Travel Risk Coronavirus risk:travel/contact w/high risk person: No Has patient experienced Coronavirus symptoms: No Infectious screening In the last 2 months have you had wt loss of >10#?: YES Have you had fever, night sweats or hemotysis?: No Have you traveled outside the country in the last 6 months?: No Isolation: Standard ROS Review of Systems Constitutional: See HPI Eyes: No Symptoms Reported ENTM: No Symptoms Reported Respiratoy: No Symptoms Reported Cardiovascular: No Symptoms Reported Gastrointestinal/Abdominal: No Symptoms Reported Genitourinary: No Symptoms Reported Musculoskeletal: No Symptoms Reported Integumentary: No Symptoms Reported Hematologic/Lymphatic: No Symptoms Reported All Other Systems: Reviewed and Negative PE Vital Signs Vitals: Temperature 97.8 F Pulse Rate 65 Respiratory Rate 20 Blood Pressure [Right Arm] 178/84 Blood Pressure 178/80 O2 Sat by Pulse Oximetry 97 General General Appearance: Alert, Anxious and In Distress Head Head Exam: Normal Inspection, Atraumatic and Normocephalic Eyes Eye exam: Normal Appearance ENT ENT Exam: Normal Exam Neck Neck Exam: Normal Inspection Respiratory Respiratory Exam: negative Accessory Muscle Use and Respiratory Distress Respiratory Exam: Bilateral: Rhonchi and Bilateral: Crackles Cardiovascular Cardiovascular Exam: Regular Rate and Normal Heart Sounds Abdominal Exam Abdominal Exam: Normal Inspection and Normal Bowel Sounds Extremities Extremities Exam: Normal Inspection and Full ROM Back Back Exam: Normal Inspection and Full ROM Neurologic Neurological Exam: Alert, Oriented X3 and Reflexes Normal Skin Skin Exam: Warm, Dry and Other (2+ LE edema bilat) ROR Labs Reviewed Laboratory Results Reviewed?: Yes Result Diagrams: 07/26/20 17:15 07/26/20 17:15 Laboratory: WBC 8.5 X10^3/uL (3.6-10.0) 07/26/20 17:15 RBC 3.13 X10^6/uL (3.5-5.4) L 07/26/20 17:15 Hgb 10.1 g/dL (12.0-16.0) L 07/26/20 17:15 Hct 30.0 % (36.0-47.0) L 07/26/20 17:15 MCV 96.0 fL (80.0-100.0) 07/26/20 17:15 MCH 32.2 pg (27.0-34.0) 07/26/20 17:15 MCHC 33.5 g/dL (33.0-35.0) 07/26/20 17:15 RDW 17.1 % (11.6-16.5) H 07/26/20 17:15 Plt Count 286 X10^3/uL (150.0-450.0) 07/26/20 17:15 MPV 8.2 fL (7.4-11.0) 07/26/20 17:15 Neut % (Auto) 75.2 % (42.0-75.0) H 07/26/20 17:15 Lymph % (Auto) 13.3 % (21.0-51.0) L 07/26/20 17:15 [place] % (Auto) 7.5 % (0.0-13.0) 07/26/20 17:15 Eos % (Auto) 3.0 % (0.9-2.9) H 07/26/20 17:15 Baso % (Auto) 1.0 % (0.2-1.0) 07/26/20 17:15 Neut # (Auto) 6.4 x10^3/uL (2.2-4.8) H 07/26/20 17:15 Lymph # (Auto) 1.1 X10^3/uL (1.3-2.9) L 07/26/20 17:15 [place] # (Auto) 0.6 x10^3/uL (0.3-0.8) 07/26/20 17:15 Eos # (Auto) 0.3 x10^3/uL (0.0-0.2) H 07/26/20 17:15 Baso # (Auto) 0.1 X10^3/uL (0.0-0.1) 07/26/20 17:15 Absolute Nucleated RBC 0.2 /100WBC 07/26/20 17:15 PT 15.6 SECONDS (11.8-14.3) 07/26/20 17:15 INR Target Range - 07/26/20 17:15 INR 1.30 (0.8-1.3) 07/26/20 17:15 APTT 29.2 SECONDS (22.9-36.5) 07/26/20 17:15 PTT Comment - 07/26/20 17:15 Sample Site Rrad 07/26/20 17:07 ABG pH 7.440 (7.35-7.45) 07/26/20 17:07 ABG pCO2 54.0 mmHg (35.0-45.0) H* 07/26/20 17:07 ABG pO2 54.0 mmHg (80.0-100.0) L 07/26/20 17:07 ABG HCO3 36.7 mmol/L (22-26) H* 07/26/20 17:07 ABG O2 Saturation 89.0 % (90-100) L 07/26/20 17:07 ABG Base Excess 10.7 mmol/L (-2.0-2.0) H 07/26/20 17:07 Kevin Test Pos 07/26/20 17:07 A-a Gradient 107.0 mmHg 07/26/20 17:07 FiO2 32.0 07/26/20 17:07 Blood Gas Comments Pt shayy well elj cdn 07/26/20 17:07 Sodium 143 mmol/L (136-145) 07/26/20 17:15 Corrected Sodium 145 mmol/L (136-145) 07/26/20 17:15 Potassium 3.9 mmol/L (3.5-5.1) 07/26/20 17:15 Chloride 105 mmol/L (98-107) 07/26/20 17:15 Carbon Dioxide 34.9 mmol/L (21-32) H 07/26/20 17:15 BUN 35 mg/dL (7-18) H 07/26/20 17:15 Creatinine 1.86 mg/dL (0.55-1.02) H 07/26/20 17:15 Est GFR (MDRD) Af Amer 35 (>60) L 07/26/20 17:15 Est GFR (MDRD) Non-Af 29 (>60) L 07/26/20 17:15 Glucose 204 mg/dL (65-99) H 07/26/20 17:15 Calcium 10.6 mg/dL (8.5-10.1) H 07/26/20 17:15 Corrected Calcium 11.4 mg/dL (8.5-10.1) H 07/26/20 17:15 Magnesium 2.0 mg/dL (1.7-2.9) 07/26/20 17:15 Total Bilirubin 0.60 mg/dL (0.2-1.0) 07/26/20 17:15 AST 18 Units/L (15-37) 07/26/20 17:15 ALT 24 Units/L (12-78) 07/26/20 17:15 Alkaline Phosphatase 118 Units/L (46-116) H 07/26/20 17:15 Creatine Kinase 64 Units/L (26-192) 07/26/20 17:15 CK-MB (CK-2) 1.8 ng/mL (0-4.0) 07/26/20 17:15 CK/CKMB % Calc 2.8 % (<4) 07/26/20 17:15 Troponin I 1.48 ng/mL (0-1.5) 07/26/20 17:15 B-Natriuretic Peptide 1260 pg/mL (0-79) H* 07/26/20 17:15 Total Protein 7.0 g/dL (6.4-8.2) 07/26/20 17:15 Albumin 3.0 g/dL (3.4-5.0) L 07/26/20 17:15 Globulin 4.0 g/dL (2.5-4.5) 07/26/20 17:15 Albumin/Globulin Ratio 0.8 Ratio (1.1-2.1) L 07/26/20 17:15 SARS CoV-2 RNA Rapid LEIGH Negative (NEGATIVE) 07/26/20 19:27 Opioid Opioid Risk Tool Age ([place] box if 16-45): No History of Preadolescent Sexual Abuse: No Total: 0 Total Score Risk Category: Low Risk Copyright: Shade [place] predicting aberrant behaviors Diagnosis Discharge Problem: CHF (congestive heart failure) Narrative Support Text: admit to Dr Malin for Dr Hawkins
[2020-07-26 17:32] LABS: BASOPHILS # (AUTO) 0.1 X10^3/uL (0.0-0.1); EOSINOPHILS # (AUTO) 0.3 x10^3/uL (0.0-0.2); HEMOGLOBIN 10.1 g/dL (12.0-16.0); LYMPHOCYTES # (AUTO) 1.1 X10^3/uL (1.3-2.9); LYMPHOCYTES % (AUTO) 13.3 % (21.0-51.0); MEAN CORPUSCULAR HEMOGLOBIN 32.2 pg (27.0-34.0); MEAN CORPUSCULAR HGB CONC 33.5 g/dL (33.0-35.0); MEAN PLATELET VOLUME 8.2 fL (7.4-11.0); MONOCYTES # (AUTO) 0.6 x10^3/uL (0.3-0.8); MONOCYTES % (AUTO) 7.5 % (0.0-13.0); NEUTROPHILS # (AUTO) 6.4 x10^3/uL (2.2-4.8); NEUTROPHILS % (AUTO) 75.2 % (42.0-75.0); PLATELET COUNT 286 X10^3/uL (150.0-450.0); RED BLOOD COUNT 3.13 X10^6/uL (3.5-5.4); RED CELL DISTRIBUTION WIDTH 17.1 % (11.6-16.5); WHITE BLOOD COUNT 8.5 X10^3/uL (3.6-10.0)
[2020-07-26 17:56] LABS: CALCIUM 10.6 mg/dL (8.5-10.1); CARBON DIOXIDE 34.9 mmol/L (21-32); CKMB % 2.8 % (<4); COR CA(FOR HYPOALB) 11.4 mg/dL (8.5-10.1); CREATINE KINASE MB 1.8 ng/mL (0-4.0); CREATININE 1.86 mg/dL (0.55-1.02); TROPONIN I 1.48 ng/mL (0-1.5)
--- NOTE | 2020-07-26 18:15 | RAD ---
PROCEDURE: Chest X-ray 1 View .HISTORY: Short of breath.TECHNIQUE: AP view .COMPARISON: 07/25/2020.TECHNICAL QUALITY: Satisfactory .FINDINGS:Unchanged right internal jugular dialysis catheter.Unchanged cardiomegaly with previous sternotomy.Mediastinum and hilar regions show no masses or lymphadenopathy .Mildly increased and unchanged.Some interstitial fluid perihilar regions similar to previous study. No edema, pleural fluid, or pneumothorax.No acute bony abnormality .IMPRESSION:Unchanged mild congestive failure.Electronically signed by: Ben Clark (Jul 26, 2020 18:12:35)
[2020-07-26] MEDS ORDERED: ZOFRAN INJ 4 MG VIAL IVP PRN (22:17)
[2020-07-26] MEDS ORDERED: TYLENOL 325 MG TAB PO PRN (22:17)
[2020-07-26] MEDS ORDERED: HumuLIN R SC PRN (22:22)
[2020-07-26] MEDS ORDERED: HumuLIN R SUBCUT PRN (22:22)
[2020-07-26] MEDS ORDERED: LASIX ONE (23:42)
[2020-07-26] MEDS: LASIX IVP SCH (23:45)
[2020-07-27] MEDS ORDERED: PHARMACY CONSULT LTC MEDICATIONS XX SCH (01:00)
[2020-07-27] MEDS ORDERED: MAALOX or MYLANTA ONE (03:55)
[2020-07-27] MEDS: MAALOX or MYLANTA PO PRN ×2 (04:02→12:09)
[2020-07-27 04:56] LABS: BASOPHILS % (AUTO) 0.6 % (0.2-1.0); EOSINOPHILS # (AUTO) 0.3 x10^3/uL (0.0-0.2); EOSINOPHILS % (AUTO) 3.6 % (0.9-2.9); HEMATOCRIT 26.9 % (36.0-47.0); HEMOGLOBIN 9.2 g/dL (12.0-16.0); LYMPHOCYTES # (AUTO) 1.2 X10^3/uL (1.3-2.9); LYMPHOCYTES % (AUTO) 15.6 % (21.0-51.0); MEAN CORPUSCULAR HEMOGLOBIN 32.3 pg (27.0-34.0); MEAN CORPUSCULAR HGB CONC 34.2 g/dL (33.0-35.0); MEAN CORPUSCULAR VOLUME 94.7 fL (80.0-100.0); MEAN PLATELET VOLUME 8.2 fL (7.4-11.0); MONOCYTES # (AUTO) 0.7 x10^3/uL (0.3-0.8); MONOCYTES % (AUTO) 9.2 % (0.0-13.0); NEUTROPHILS # (AUTO) 5.3 x10^3/uL (2.2-4.8); PLATELET COUNT 262 X10^3/uL (150.0-450.0); RED BLOOD COUNT 2.84 X10^6/uL (3.5-5.4); RED CELL DISTRIBUTION WIDTH 16.8 % (11.6-16.5); WHITE BLOOD COUNT 7.4 X10^3/uL (3.6-10.0)
[2020-07-27 05:04] LABS: ALBUMIN 2.9 g/dL (3.4-5.0); CALCIUM 10.8 mg/dL (8.5-10.1); CARBON DIOXIDE 34.1 mmol/L (21-32); COR CA(FOR HYPOALB) 11.7 mg/dL (8.5-10.1); CREATININE 1.68 mg/dL (0.55-1.02); TOTAL PROTEIN 6.4 g/dL (6.4-8.2)
[2020-07-27] MEDS ORDERED: POTASSIUM CHL 60 MEQ/NS 0.45% 500 ML IV PRN (05:36)
[2020-07-27] MEDS ORDERED: MICRO K EXTEN CAP 10 MEQ PO PRN (05:36)
[2020-07-27] MEDS ORDERED: POTASSIUM CHLORIDE LIQ 20 MEQ UDC PO PRN (05:36)
[2020-07-27] MEDS ORDERED: KLOR-CON PO PRN (05:36)
[2020-07-27] MEDS ORDERED: POTASSIUM CHL 40 MEQ/NS 0.45% 500 ML IV PRN (05:36)
[2020-07-27] MEDS ORDERED: K-RIDER 10 MEQ/NS 100 ML 10 MEQ/100 ML BAG IV PRN (05:36)
[2020-07-27] MEDS ORDERED: K-DUR TAB 20 MEQ PO ONE (05:46)
[2020-07-27 05:55] LABS: CKMB % 3.1 % (<4); CREATINE KINASE MB 1.6 ng/mL (0-4.0); TROPONIN I 1.26 ng/mL (0-1.5)
[2020-07-27] MEDS: K-DUR TAB 20 MEQ PO PRN ×2 (05:59→06:00)
[2020-07-27] MEDS: LASIX IVP SCH ×2 (06:01→17:35)
--- NOTE | 2020-07-27 06:04 | RAD ---
HISTORYFollow-up congestive heart failureSTUDYChest AP [id number] is rotated to the left. Patient is status post median inez rnotomy. There is a right IJ line with its tip in the superior vena cava. The heart remains enlarged. Mild pulmonary venous congestion is present. Mild perihilar interstitial prominence remains likely o n the basis of congestive heart failure but unchanged. No alveolar edema identified. The right lung a nd left upper lung pedroza are clear. There is increased density retrocardiac area left lower lobe obs curing the left hemidiaphragm this could be partially due to overlying soft tissue attenuation from t he patient's cardiomegaly however underlying atelectasis, infiltrate or effusion not excluded. Bony t horax is unremarkable.IMPRESSIONCardiomegaly with mild congestive heart failure unchanged from the pr ior examinationPersistent increased density retrocardiac area left lower lobe obscuring the left sanchez diaphragm. Differential diagnosis as aboveElectronically signed by: GALILEO RODRIGES (Jul 27, 2020 06:01 :52)
[2020-07-27] MEDS ORDERED: TYLENOL #3 TAB (W/CODEINE) PO PRN (07:59)
[2020-07-27] MEDS ORDERED: ZOLOFT ONE (08:38)
[2020-07-27] MEDS: DUONEB 0.5 MG/3 MG (3 mL) NEB SCH ×4 (09:09→21:36)
[2020-07-27] MEDS: ZOLOFT PO SCH (09:28)
[2020-07-27] MEDS: SYNTHROID 25 mcg TAB PO SCH (09:29)
[2020-07-27] MEDS: COREG TAB 12.5 MG PO SCH ×2 (09:29→20:46)
[2020-07-27] MEDS: FOLIC ACID TAB 1 MG PO SCH (09:30)
[2020-07-27] MEDS: KEPPRA TAB 500 MG PO SCH ×2 (09:31→20:46)
[2020-07-27] MEDS: CORDARONE TAB 200 MG PO SCH (09:32)
[2020-07-27] MEDS: NORVASC TAB 5 MG PO SCH (09:33)
[2020-07-27] MEDS: PLAVIX PO SCH (09:34)
[2020-07-27] MEDS: ENTRESTO 24/26 MG TAB PO SCH ×2 (09:34→20:46)
--- NOTE | 2020-07-27 10:05 | DR.H&P ---
H&P History & Physical for Day of: H&P Date: 07/27/20 Chief Complaint Chief Complaint: Shortness of breath Allergies Allergies Allergy/AdvReac Type Severity Reaction Status Date / Time Sulfa (Sulfonamide Allergy Verified 12/14/16 13:55 Antibiotics) [SULFA] ciprofloxacin [From Cipro] AdvReac Verified 04/04/18 11:29 History of Present Illness History of Present Illness: Pt is a 65 year old female past medical history HFrEF, COPD, HTN, CKD, presenting after having shortness of breath at [facility]. She reports worsening shortness of breath and dyspnea for the past 2-3 days along with increased swelling in her legs. Labs/imaging: Wbc 7.4, Hgb 9.2, Plt 262, Na 144, K 3.3, Creatinine 1.68, Glucose 157, ABG: pH 7.44, pCO2 54, pO2 54, HCO3 36, O2 89% on FiO2 32%. BNP 1260, Troponin negative x2, COVID-19 negative, CXR: Cardiomegaly with mild congestive heart failure unchanged from the prior examination. Persistent increased density retrocardiac area left lower lobe obscuring the left hemidiaphragm. Differential diagnosis as above. Pt was given IV Lasix 40mg, and started on IV lasix 40mg BID. Fluid restrictions, strict I/Os, supplemental O2, and bronchodilators for CHF exacerbation. Restart home medications. Will continue to monitor and follow up labs/imaging in the morning. Past Medical History Past Medical History: Anemia, Anxiety, CHF, COPD, Coronary Artery Disease, CVA, Depression, Diabetes, Dialysis, Hypertension, [place] and Renal Disease Past Surgical History Surgical History: Angioplasty/Stents, CABG/Valve Surgery and Hysterectomy Family History Family Medical History: Diabetes Mellitus, Cancer, [place] and Hypertension Social History Does patient currently use any type of tobacco product: No Have you used tobacco products in the last 12 months: No Type of Tobacco Use: None Does any household member use tobacco: No Alcohol Use: None Drug Use: Prescription Drugs Medications Home Medications: Sulfa (Sulfonamide Antibiotics) [SULFA] Allergy (Verified 12/14/16 13:55) ciprofloxacin [From Cipro] Adverse Reaction (Verified 04/04/18 11:29) CONTINUE taking the following medications acetaminophen-codeine 1 tab PO Q6H PRN 07/26/20 [History] ceftriaxone 1 g IM DAILY 07/26/20 [History] Labs Result Diagrams: 07/28/20 07:25 07/28/20 07:25 Labs: Laboratory WBC 7.4 X10^3/uL (3.6-10.0) 07/27/20 04:12 RBC 2.84 X10^6/uL (3.5-5.4) L 07/27/20 04:12 Hgb 9.2 g/dL (12.0-16.0) L 07/27/20 04:12 Hct 26.9 % (36.0-47.0) L 07/27/20 04:12 MCV 94.7 fL (80.0-100.0) 07/27/20 04:12 MCH 32.3 pg (27.0-34.0) 07/27/20 04:12 MCHC 34.2 g/dL (33.0-35.0) 07/27/20 04:12 RDW 16.8 % (11.6-16.5) H 07/27/20 04:12 Plt Count 262 X10^3/uL (150.0-450.0) 07/27/20 04:12 MPV 8.2 fL (7.4-11.0) 07/27/20 04:12 Neut % (Auto) 71.0 % (42.0-75.0) 07/27/20 04:12 Lymph % (Auto) 15.6 % (21.0-51.0) L 07/27/20 04:12 [place] % (Auto) 9.2 % (0.0-13.0) 07/27/20 04:12 Eos % (Auto) 3.6 % (0.9-2.9) H 07/27/20 04:12 Baso % (Auto) 0.6 % (0.2-1.0) 07/27/20 04:12 Neut # (Auto) 5.3 x10^3/uL (2.2-4.8) H 07/27/20 04:12 Lymph # (Auto) 1.2 X10^3/uL (1.3-2.9) L 07/27/20 04:12 [place] # (Auto) 0.7 x10^3/uL (0.3-0.8) 07/27/20 04:12 Eos # (Auto) 0.3 x10^3/uL (0.0-0.2) H 07/27/20 04:12 Baso # (Auto) 0.0 X10^3/uL (0.0-0.1) 07/27/20 04:12 Absolute Nucleated RBC 0.0 /100WBC 07/27/20 04:12 PT 15.6 SECONDS (11.8-14.3) 07/26/20 17:15 INR Target Range - 07/26/20 17:15 INR 1.30 (0.8-1.3) 07/26/20 17:15 APTT 29.2 SECONDS (22.9-36.5) 07/26/20 17:15 PTT Comment - 07/26/20 17:15 Sample Site Rrad 07/26/20 17:07 ABG pH 7.440 (7.35-7.45) 07/26/20 17:07 ABG pCO2 54.0 mmHg (35.0-45.0) H* 07/26/20 17:07 ABG pO2 54.0 mmHg (80.0-100.0) L 07/26/20 17:07 ABG HCO3 36.7 mmol/L (22-26) H* 07/26/20 17:07 ABG O2 Saturation 89.0 % (90-100) L 07/26/20 17:07 ABG Base Excess 10.7 mmol/L (-2.0-2.0) H 07/26/20 17:07 Kevin Test Pos 07/26/20 17:07 A-a Gradient 107.0 mmHg 07/26/20 17:07 FiO2 32.0 07/26/20 17:07 Blood Gas Comments Pt shayy well elj cdn 07/26/20 17:07 Sodium 144 mmol/L (136-145) 07/27/20 04:12 Corrected Sodium 145 mmol/L (136-145) 07/27/20 04:12 Potassium 3.3 mmol/L (3.5-5.1) L 07/27/20 04:12 Chloride 106 mmol/L (98-107) 07/27/20 04:12 Carbon Dioxide 34.1 mmol/L (21-32) H 07/27/20 04:12 BUN 34 mg/dL (7-18) H 07/27/20 04:12 Creatinine 1.68 mg/dL (0.55-1.02) H 07/27/20 04:12 Est GFR (MDRD) Af Amer 40 (>60) L 07/27/20 04:12 Est GFR (MDRD) Non-Af 33 (>60) L 07/27/20 04:12 Glucose 157 mg/dL (65-99) H 07/27/20 04:12 POC Glucose (mg/dL) 155 mg/dL (65-99) H 07/27/20 05:30 Calcium 10.8 mg/dL (8.5-10.1) H 07/27/20 04:12 Corrected Calcium 11.7 mg/dL (8.5-10.1) H 07/27/20 04:12 Magnesium 1.9 mg/dL (1.7-2.9) 07/27/20 04:12 Total Bilirubin 0.50 mg/dL (0.2-1.0) 07/27/20 04:12 AST 13 Units/L (15-37) L 07/27/20 04:12 ALT 18 Units/L (12-78) 07/27/20 04:12 Alkaline Phosphatase 103 Units/L (46-116) 07/27/20 04:12 Creatine Kinase 51 Units/L (26-192) 07/27/20 04:12 CK-MB (CK-2) 1.6 ng/mL (0-4.0) 07/27/20 04:12 CK/CKMB % Calc 3.1 % (<4) 07/27/20 04:12 Troponin I 1.26 ng/mL (0-1.5) 07/27/20 04:12 B-Natriuretic Peptide 1260 pg/mL (0-79) H* 07/26/20 17:15 Total Protein 6.4 g/dL (6.4-8.2) 07/27/20 04:12 Albumin 2.9 g/dL (3.4-5.0) L 07/27/20 04:12 Globulin 3.5 g/dL (2.5-4.5) 07/27/20 04:12 Albumin/Globulin Ratio 0.8 Ratio (1.1-2.1) L 07/27/20 04:12 SARS CoV-2 RNA Rapid LEGIH Negative (NEGATIVE) 07/26/20 19:27 Review of Systems Constitutional: Weakness; denies Fever and Chills Eyes: No Symptoms Reported ENT: No Symptoms Reported Respiratory: Shortness of Breath Cardiovascular: No Symptoms Reported Gastrointestinal: No Symptoms Reported Genitourinary: No Symptoms Reported Musculoskeletal: No Symptoms Reported Skin: No Symptoms Reported Neurological: No Symptoms Reported Physical Exam Vital Signs: Temperature 97.8 F Pulse Rate [Right Brachial] 70 Pulse Rate 72 Respiratory Rate 18 Blood Pressure [Right Arm] 176/82 Blood Pressure 167/77 O2 Sat by Pulse Oximetry 96 Oriented: Normal Eyes: Normal Ear: Normal Nose: Normal Throat: Normal Respiratory: Diminished Throughout and Rales Throughout Cardiovascular: Normal : Normal Auscultation: Bowel Sounds: Normal Palpation: Normal Tenderness: Normal Skin: Normal Musculoskeletal: Normal Psychiatric: Normal Mood Description: Calm and Appropriate Affect: Normal Speech Pattern: Clear and Appropriate Assessment/Plan (1) Acute CHF (congestive heart failure): Status: Acute Plan: Fluid restriction, strict I/O IV Lasix 40mg BID Review H&P Reviewed: Yes Patient was examined?: Yes
[2020-07-27] MEDS: LOVENOX INJ 30 MG SYR SC SCH (12:09)
[2020-07-27 13:26] VITALS: BMI 42.1
[2020-07-27] MEDS ORDERED: LIPITOR TAB 40 MG PO SCH (21:00)
[2020-07-28 07:35] LABS: BASOPHILS # (AUTO) 0.1 X10^3/uL (0.0-0.1); BASOPHILS % (AUTO) 0.7 % (0.2-1.0); EOSINOPHILS # (AUTO) 0.3 x10^3/uL (0.0-0.2); EOSINOPHILS % (AUTO) 3.6 % (0.9-2.9); HEMATOCRIT 26.1 % (36.0-47.0); HEMOGLOBIN 8.9 g/dL (12.0-16.0); LYMPHOCYTES % (AUTO) 12.6 % (21.0-51.0); MEAN CORPUSCULAR HEMOGLOBIN 32.8 pg (27.0-34.0); MEAN CORPUSCULAR HGB CONC 34.2 g/dL (33.0-35.0); MEAN CORPUSCULAR VOLUME 95.9 fL (80.0-100.0); MEAN PLATELET VOLUME 7.8 fL (7.4-11.0); MONOCYTES # (AUTO) 0.7 x10^3/uL (0.3-0.8); MONOCYTES % (AUTO) 8.7 % (0.0-13.0); NEUTROPHILS # (AUTO) 5.8 x10^3/uL (2.2-4.8); NEUTROPHILS % (AUTO) 74.4 % (42.0-75.0); PLATELET COUNT 249 X10^3/uL (150.0-450.0); RED BLOOD COUNT 2.72 X10^6/uL (3.5-5.4); RED CELL DISTRIBUTION WIDTH 17.3 % (11.6-16.5); WHITE BLOOD COUNT 7.8 X10^3/uL (3.6-10.0)
[2020-07-28 07:53] LABS: ALBUMIN 2.8 g/dL (3.4-5.0); CALCIUM 10.6 mg/dL (8.5-10.1); CARBON DIOXIDE 32.6 mmol/L (21-32); COR CA(FOR HYPOALB) 11.6 mg/dL (8.5-10.1); CREATININE 1.67 mg/dL (0.55-1.02); TOTAL PROTEIN 6.6 g/dL (6.4-8.2)
[2020-07-28] MEDS ORDERED: ZOLOFT ONE (08:01)
[2020-07-28] MEDS: PLAVIX PO SCH (08:08)
[2020-07-28] MEDS: FOLIC ACID TAB 1 MG PO SCH (08:08)
[2020-07-28] MEDS: NORVASC TAB 5 MG PO SCH (08:09)
[2020-07-28] MEDS: ENTRESTO 24/26 MG TAB PO SCH (08:09)
[2020-07-28] MEDS: COREG TAB 12.5 MG PO SCH (08:09)
[2020-07-28] MEDS: ZOLOFT PO SCH (08:09)
[2020-07-28] MEDS: CORDARONE TAB 200 MG PO SCH (08:09)
[2020-07-28] MEDS: KEPPRA TAB 500 MG PO SCH (08:09)
[2020-07-28] MEDS: SYNTHROID 25 mcg TAB PO SCH (08:09)
[2020-07-28] MEDS: LOVENOX INJ 30 MG SYR SC SCH (08:10)
[2020-07-28] MEDS: LASIX IVP SCH (08:21)
[2020-07-28 08:30] VITALS: BP 178/83
[2020-07-28] MEDS: DUONEB 0.5 MG/3 MG (3 mL) NEB SCH (09:16)
--- NOTE | 2020-07-28 09:36 | W.DIS.FURT ---
Summary of Discharge Discharge Summary of Date Date of Exam: 07/28/20 Admission Date Date of Admission: 07/26/20 Admission Diagnosis Patient Problems (Updated 07/26/20 @ 20:40 by SUKHJINDER CHOUDHURY) CHF (congestive heart failure) (Chronic) I50.9 Hospital Course: Pt is a 65 year old female past medical history HFrEF, COPD, HTN, CKD, admitted for CHF exacerbation. Her hospital/treatment course included:IV lasix 40mg BID. Fluid restrictions, strict I/Os, supplemental O2, and bronchodilators. Pt responded well to treatments. Labs/imaging: Wbc 7.8, Hgb 8.9, Plt 249, Na 146, K 4.0, Creatinine 1.67, Glucose 178. Pt no longer having shortness of breath. Medications changes include increasing PO Lasix to 40mg BID and fluid restricted diet of 1500mL. She was discharged back to [facility] in stable condition. Vital Signs: Vital Signs (72 hours) 07/26/20 17:10 07/26/20 17:37 07/26/20 17:45 Temperature 97.8 F Pulse Rate 68 66 66 Pulse Rate [Right Brachial] Respiratory Rate 20 23 23 Blood Pressure 177/82 Blood Pressure [Right Arm] O2 Sat by Pulse Oximetry 95 07/26/20 18:00 07/26/20 18:15 07/26/20 18:30 Temperature Pulse Rate 66 67 65 Pulse Rate [Right Brachial] Respiratory Rate 16 18 19 Blood Pressure 166/74 187/77 Blood Pressure [Right Arm] O2 Sat by Pulse Oximetry 99 100 07/26/20 18:45 07/26/20 19:00 07/26/20 19:01 Temperature Pulse Rate 66 65 66 Pulse Rate [Right Brachial] Respiratory Rate 20 25 H 20 Blood Pressure 165/86 Blood Pressure [Right Arm] O2 Sat by Pulse Oximetry 100 07/26/20 19:15 07/26/20 19:30 07/26/20 19:45 Temperature Pulse Rate 64 65 65 Pulse Rate [Right Brachial] Respiratory Rate 19 22 34 H Blood Pressure 178/80 Blood Pressure [Right Arm] O2 Sat by Pulse Oximetry 98 97 97 07/26/20 20:00 07/26/20 20:01 07/26/20 20:15 Temperature Pulse Rate 64 64 63 Pulse Rate [Right Brachial] Respiratory Rate 24 26 H 33 H Blood Pressure 186/84 Blood Pressure [Right Arm] O2 Sat by Pulse Oximetry 98 98 98 07/26/20 20:30 07/26/20 20:31 07/26/20 20:45 Temperature Pulse Rate 64 64 63 Pulse Rate [Right Brachial] Respiratory Rate 30 H 33 H 24 Blood Pressure 196/83 Blood Pressure [Right Arm] O2 Sat by Pulse Oximetry 98 98 93 L 07/26/20 21:00 07/26/20 21:01 07/26/20 21:15 Temperature Pulse Rate 67 66 65 Pulse Rate [Right Brachial] Respiratory Rate 24 23 17 Blood Pressure 173/79 Blood Pressure [Right Arm] O2 Sat by Pulse Oximetry 96 96 96 07/26/20 21:30 07/26/20 21:31 07/26/20 21:45 Temperature Pulse Rate 63 64 62 Pulse Rate [Right Brachial] Respiratory Rate 19 19 31 H Blood Pressure 193/82 Blood Pressure [Right Arm] O2 Sat by Pulse Oximetry 96 97 96 07/26/20 22:30 07/26/20 22:41 07/26/20 22:45 Temperature 97.6 F Pulse Rate 63 Pulse Rate [Right Brachial] 72 Respiratory Rate 20 20 20 Blood Pressure 167/77 Blood Pressure [Right Arm] 167/77 170/74 O2 Sat by Pulse Oximetry 95 95 96 07/27/20 00:00 07/27/20 04:00 07/27/20 08:00 Temperature 97.6 F 97.8 F 97.8 F Pulse Rate Pulse Rate [Right Brachial] 83 70 71 Respiratory Rate 20 18 23 Blood Pressure Blood Pressure [Right Arm] 158/79 176/82 177/84 O2 Sat by Pulse Oximetry 95 99 94 L 07/27/20 09:09 07/27/20 12:00 07/27/20 13:12 Temperature 97.9 F Pulse Rate 72 78 Pulse Rate [Right Brachial] 68 Respiratory Rate 23 Blood Pressure Blood Pressure [Right Arm] 183/84 O2 Sat by Pulse Oximetry 96 96 96 07/27/20 16:00 07/27/20 16:59 07/27/20 20:00 Temperature 97.9 F 98.3 F Pulse Rate 67 Pulse Rate [Right Brachial] 67 68 Respiratory Rate 24 20 Blood Pressure Blood Pressure [Right Arm] 138/82 163/75 O2 Sat by Pulse Oximetry 94 L 95 99 07/27/20 21:36 07/28/20 00:00 07/28/20 04:00 Temperature 98.4 F 97.6 F Pulse Rate 70 Pulse Rate [Right Brachial] 70 71 Respiratory Rate 22 20 Blood Pressure Blood Pressure [Right Arm] 171/79 174/80 O2 Sat by Pulse Oximetry 95 95 95 07/28/20 08:00 07/28/20 09:16 Temperature 98.0 F Pulse Rate 72 Pulse Rate [Right Brachial] 72 Respiratory Rate 16 Blood Pressure Blood Pressure [Right Arm] 178/83 O2 Sat by Pulse Oximetry 97 96 Labs: Laboratory Last Values WBC 7.8 X10^3/uL (3.6-10.0) 07/28/20 07:25 RBC 2.72 X10^6/uL (3.5-5.4) L 07/28/20 07:25 Hgb 8.9 g/dL (12.0-16.0) L 07/28/20 07:25 Hct 26.1 % (36.0-47.0) L 07/28/20 07:25 MCV 95.9 fL (80.0-100.0) 07/28/20 07:25 MCH 32.8 pg (27.0-34.0) 07/28/20 07:25 MCHC 34.2 g/dL (33.0-35.0) 07/28/20 07:25 RDW 17.3 % (11.6-16.5) H 07/28/20 07:25 Plt Count 249 X10^3/uL (150.0-450.0) 07/28/20 07:25 MPV 7.8 fL (7.4-11.0) 07/28/20 07:25 Neut % (Auto) 74.4 % (42.0-75.0) 07/28/20 07:25 Lymph % (Auto) 12.6 % (21.0-51.0) L 07/28/20 07:25 [place] % (Auto) 8.7 % (0.0-13.0) 07/28/20 07:25 Eos % (Auto) 3.6 % (0.9-2.9) H 07/28/20 07:25 Baso % (Auto) 0.7 % (0.2-1.0) 07/28/20 07:25 Neut # (Auto) 5.8 x10^3/uL (2.2-4.8) H 07/28/20 07:25 Lymph # (Auto) 1.0 X10^3/uL (1.3-2.9) L 07/28/20 07:25 [place] # (Auto) 0.7 x10^3/uL (0.3-0.8) 07/28/20 07:25 Eos # (Auto) 0.3 x10^3/uL (0.0-0.2) H 07/28/20 07:25 Baso # (Auto) 0.1 X10^3/uL (0.0-0.1) 07/28/20 07:25 Absolute Nucleated RBC 0.1 /100WBC 07/28/20 07:25 PT 15.6 SECONDS (11.8-14.3) 07/26/20 17:15 INR Target Range - 07/26/20 17:15 INR 1.30 (0.8-1.3) 07/26/20 17:15 APTT 29.2 SECONDS (22.9-36.5) 07/26/20 17:15 PTT Comment - 07/26/20 17:15 Sample Site Rrad 07/26/20 17:07 ABG pH 7.440 (7.35-7.45) 07/26/20 17:07 ABG pCO2 54.0 mmHg (35.0-45.0) H* 07/26/20 17:07 ABG pO2 54.0 mmHg (80.0-100.0) L 07/26/20 17:07 ABG HCO3 36.7 mmol/L (22-26) H* 07/26/20 17:07 ABG O2 Saturation 89.0 % (90-100) L 07/26/20 17:07 ABG Base Excess 10.7 mmol/L (-2.0-2.0) H 07/26/20 17:07 Kevin Test Pos 07/26/20 17:07 A-a Gradient 107.0 mmHg 07/26/20 17:07 FiO2 32.0 07/26/20 17:07 Blood Gas Comments Pt shayy well elj cdn 07/26/20 17:07 Sodium 144 mmol/L (136-145) 07/28/20 07:25 Corrected Sodium 146 mmol/L (136-145) H 07/28/20 07:25 Potassium 4.0 mmol/L (3.5-5.1) 07/28/20 07:25 Chloride 108 mmol/L (98-107) H 07/28/20 07:25 Carbon Dioxide 32.6 mmol/L (21-32) H 07/28/20 07:25 BUN 32 mg/dL (7-18) H 07/28/20 07:25 Creatinine 1.67 mg/dL (0.55-1.02) H 07/28/20 07:25 Est GFR (MDRD) Af Amer 40 (>60) L 07/28/20 07:25 Est GFR (MDRD) Non-Af 33 (>60) L 07/28/20 07:25 Glucose 178 mg/dL (65-99) H 07/28/20 07:25 POC Glucose (mg/dL) 170 mg/dL (65-99) H 07/28/20 05:48 Calcium 10.6 mg/dL (8.5-10.1) H 07/28/20 07:25 Corrected Calcium 11.6 mg/dL (8.5-10.1) H 07/28/20 07:25 Magnesium 1.9 mg/dL (1.7-2.9) 07/27/20 04:12 Total Bilirubin 0.30 mg/dL (0.2-1.0) 07/28/20 07:25 AST 13 Units/L (15-37) L 07/28/20 07:25 ALT 22 Units/L (12-78) 07/28/20 07:25 Alkaline Phosphatase 101 Units/L (46-116) 07/28/20 07:25 Creatine Kinase 51 Units/L (26-192) 07/27/20 04:12 CK-MB (CK-2) 1.6 ng/mL (0-4.0) 07/27/20 04:12 CK/CKMB % Calc 3.1 % (<4) 07/27/20 04:12 Troponin I 1.26 ng/mL (0-1.5) 07/27/20 04:12 B-Natriuretic Peptide 1260 pg/mL (0-79) H* 07/26/20 17:15 Total Protein 6.6 g/dL (6.4-8.2) 07/28/20 07:25 Albumin 2.8 g/dL (3.4-5.0) L 07/28/20 07:25 Globulin 3.8 g/dL (2.5-4.5) 07/28/20 07:25 Albumin/Globulin Ratio 0.7 Ratio (1.1-2.1) L 07/28/20 07:25 SARS CoV-2 RNA Rapid LEIGH Negative (NEGATIVE) 07/26/20 19:27 Reason For Visit: CHF Discharge Date Discharge Date: 07/28/20 Discharge Diagnosis All Active Problems (Updated 07/26/20 @ 20:40 by SUKHJINDER CHOUDHURY) Anemia (Acute) Acute renal failure (Acute) Acute CHF (congestive heart failure) (Acute) Urinary tract infection (Acute) Acute exacerbation of CHF (congestive heart failure) (Acute) COVID-19 (Acute) CHF (congestive heart failure) (Chronic) Seizure disorder as sequela of cerebrovascular accident (Chronic) COPD (chronic obstructive pulmonary disease) (Chronic) CAD (coronary artery disease) (Chronic) Hyperlipidemia, mixed (Chronic) Chronic renal insufficiency, stage I (Chronic) Pulmonary edema (Chronic) Clotting disorder (Chronic) Back pain (Chronic) Diabetes mellitus, type II (Chronic) HTN (hypertension) (Chronic) Hyperlipidemia (Chronic) Plan of Treatment: Continue with present treatment and follow up plan. Pt is to keep follow up appointment as instructed and take medications as ordered. Discharge Medications Discharge Medications: Sulfa (Sulfonamide Antibiotics) [SULFA] Allergy (Verified 12/14/16 13:55) ciprofloxacin [From Cipro] Adverse Reaction (Verified 04/04/18 11:29) CONTINUE taking the following medications acetaminophen-codeine 1 tab PO Q6H PRN 07/26/20 [History] New Prescriptions furosemide 40 mg PO BID #60 tab 07/28/20 [Rx] Follow up and Referral Follow Up: 1 Week Discharge Disposition Discharge Disposition: [facility] Discharge Condition: Stable Discharge Plan Discharge Plan Hospital Course: Pt is a 65 year old female past medical history HFrEF, COPD, HTN, CKD, admitted for CHF exacerbation. Her hospital/treatment course included:IV lasix 40mg BID. Fluid restrictions, strict I/Os, supplemental O2, and bronchodilators. Pt responded well to treatments. Labs/imaging: Wbc 7.8, Hgb 8.9, Plt 249, Na 146, K 4.0, Creatinine 1.67, Glucose 178. Pt no longer having shortness of breath. Medications changes include increasing PO Lasix to 40mg BID and fluid restricted diet of 1500mL. She was discharged back to [facility] in stable condition. Patient Disposition: [facility] Condition: Stable Health Concerns: Post Hospitalization: new medications and changes needed to prevent readmission or further decline. Pt educated and given instructions on all concerns. Plan of Treatment: Continue with present treatment and follow up plan. Pt is to keep follow up appointment as instructed and take medications as ordered. Prescriptions: Continued Hemorrhoidal (witch ellen) 50 % Pads, Medicated 1 pad TOPICAL Q6H PRN (Reason: Hemorrhoids) RF: 0 Preparation H Rapid Rlf-Lidocn 5-0.25-14.4-15 % Cream 1 applic TOPICAL Q6H PRNRF: 0 Novolin R Regular U-100 Insuln 100 unit/mL Solution 1 sliding scale dose SUBCUT USEASDIRECTD RF: 0 ipratropium-albuterol 0.5 mg-3 mg(2.5 mg base)/3 mL Solution For Nebulization 3 ml INHALATION QID RF: 0 amiodarone 200 mg tablet 200 mg PO DAILY RF: 0 magnesium hydroxide [Milk of Magnesia] 400 mg/5 mL Suspension 30 ml PO DAILY RF: 0 sacubitril-valsartan 24-26 mg Tablet 1 tab PO BID RF: 0 iron-folic acid-mv, min cmb#15 106 mg iron- 1 mg Capsule 1 cap PO DAILY RF: 0 rifampin 300 mg Capsule 300 mg PO BID Qty: 28 RF: 0 atorvastatin 40 mg Tablet 40 mg PO QHS RF: 0 carvedilol 12.5 mg tablet 12.5 mg PO BID RF: 0 levetiracetam 500 mg tablet 500 mg PO BID RF: 0 sertraline 100 mg tablet 100 mg PO DAILY RF: 0 clopidogrel 75 mg tablet 75 mg PO DAILY RF: 0 levothyroxine 25 mcg tablet 25 mcg PO DAILY RF: 0 folic acid 1 mg Tablet 1 mg PO DAILY RF: 0 cholecalciferol (vitamin D3) 10 mcg (400 unit) Tablet 400 unit PO DAILY RF: 0 amlodipine [Norvasc] 5 mg Tablet 5 mg PO DAILY Qty: 30 RF: 3 acetaminophen-codeine 300-30 mg Tablet 1 tab PO Q6H PRNRF: 0 Changed furosemide 20 mg Tablet 40 mg PO BID Qty: 60 RF: 3 Discontinued ceftriaxone 1 gram Recon Soln 1 g IM DAILY RF: 0 Orders to Discharge Patient Discharge Orders: Discharge (Routine); Ordered 07/28/20 Ordered By: Toro Anderson Follow ups/Referrals Follow ups/Referrals: Rohit Hawkins [Primary Care Provider] - 1 WEEK
--- NOTE | 2020-07-28 10:17 | RAD ---
HISTORYCHF FOLLOW UPSTUDYCHEST, 1 [id number] edema has decreased. Venous congestion still present.Probab le small left effusion unchanged. No pneumothorax.Cardiomegaly is present. Widened mediastinum probab ly due to portable technique.Bones are unremarkable.Right jugular central venous catheter is in the e xpected location of the superior vena cava. EKG leads are noted. Median sternotomy wires are present. IMPRESSION1. Decreased pulmonary edema2. Persistent venous congestion3. Stable cardiomegalyElectronic ally signed by: Jb Wright (Jul 28, 2020 10:15:42)
== END 2020-07-28 10:03 ==
LOC: MED/SURG 16:43 → ER 16:43 → MED/SURG 22:40
PROVIDERS: ADMIT Obstetrics & Gynecology Obstetrics; ATTEND Internal Medicine
DX: I50.9 Heart failure, unspecified; R26.89 Other abnormalities of gait and mobility; Z20.822 Contact with and (suspected) exposure to COVID-19; N18.9 Chronic kidney disease, unspecified; I25.10 Atherosclerotic heart disease of native coronary artery without angina pectoris; E11.65 Type 2 diabetes mellitus with hyperglycemia; R94.31 Abnormal electrocardiogram [ECG] [EKG]; R06.02 Shortness of breath; R60.0 Localized edema; I13.0 Hypertensive heart and chronic kidney disease with heart failure and stage 1 through stage 4 chronic kidney disease, or unspecified chronic kidney disease; J44.9 Chronic obstructive pulmonary disease, unspecified

== ENCOUNTER 2020-12-08 12:58 | Observation (INO) ==
[2020-12-08] MEDS ORDERED: XANAX PO ONE (13:40)
[2020-12-08] MEDS ORDERED: XANAX ONE (13:49)
--- NOTE | 2020-12-08 14:09 | DR.CP ---
HPI Time Seen Time Seen by Provider: 12/08/20 13:23 HPI Comment HPI Comment: A 65 y/o female NHR was sent sent over for c/o chest pain. The patient is blind. Relating to the chest pain, she states she just hurts, she can't describe it but has no SOB. There is no radiation of the pain. She seem very anxious and is sobbing and states she just wants to go home. Reviewed Nurses Notes Review: Yes Source History Provided: Residential Mode of Arrival Mode of Arrival: Stretcher Location Location of Chest Pain: Chest Chest Pain Radiation Location: None Context Onset: At rest Cardiac Risk Factors: Hyperlipidemia and Diabetes PE Risk Factors: None Prehospital Care: None Modifying Factors Worsens: Nothing Impoves: Nothing Associated Signs and Symptoms Associated Signs and Symptoms: None PMH PMH Past Medical History: Anemia, Anxiety, CHF, COPD, Coronary Artery Disease, CVA, Depression, Diabetes, Dialysis, Hypertension, [place] and Renal Disease Past Surgical History: Yes Surgical History: Angioplasty/Stents, CABG/Valve Surgery and Hysterectomy Family History Family Medical History: Diabetes Mellitus, Cancer, [place] and Hypertension Social History Do you use any recreational Drugs:: No ROS Review of Systems Constitutional: No Symptoms Reported Eyes: No Symptoms Reported ENTM: No Symptoms Reported Respiratoy: No Symptoms Reported Cardiovascular: No Symptoms Reported Gastrointestinal/Abdominal: No Symptoms Reported Genitourinary: No Symptoms Reported Neurological: No Symptoms Reported Musculoskeletal: No Symptoms Reported Integumentary: No Symptoms Reported Hematologic/Lymphatic: No Symptoms Reported Endocrine: No Symptoms Reported Psychiatric: Anxiety PE Vitals Vitals: Temperature 99.9 F Pulse Rate 70 Respiratory Rate 23 Blood Pressure [Right Arm] 178/83 Blood Pressure 135/80 O2 Sat by Pulse Oximetry 100 General Limitations: No Limitations General Appearance: Alert and In No Apparent Distress Head Head Exam: Normal Inspection, Atraumatic and Normocephalic Eyes Eye exam: Normal Appearance and EOMI ENT ENT Exam: Normal Exam, Normal Oropharynx, Normal External Ear Exam and Mucous Membranes Moist Chest Chest Inspection: Normal Inspection and Symmetric Chest Wall Rise Respiratory Respiratory Exam: Normal Lung Sounds Bilat Cardiovascular Cardiovascular Exam: Regular Rate, Normal Rhythm, Normal Heart Sounds, +S1 and +S2 Abdominal Exam Abdominal Exam: Normal Inspection, Normal Bowel Sounds and Soft Extremities Extremities Exam: Normal Inspection and Full ROM Back Back Exam: Normal Inspection and Full ROM Neurologic Neurological Exam: Alert and Oriented X3 Psychiatric Psychiatric Exam: Anxious Skin Skin Exam: Intact MDM Differential Diagnosis Differential Diagnosis: Angina, Chest Wall Pain, CHF, Pneumonia and Pulmonary Embolus COURSE Reevaluation 1st: Improved Education/Counseling Education/Counseling: Patient, Education and Counseling Educated On: Treatment, Diagnosis, Prognosis and Needs for Follow Up ROR Labs Reviewed Laboratory Results Reviewed?: Yes Result Diagrams: 12/08/20 14:11 12/08/20 14:56 Laboratory: WBC 7.9 X10^3/uL (3.6-10.0) 12/08/20 14:11 RBC 2.31 X10^6/uL (3.5-5.4) L 12/08/20 14:11 Hgb 7.9 g/dL (12.0-16.0) L 12/08/20 14:11 Hct 22.3 % (36.0-47.0) L 12/08/20 14:11 MCV 96.6 fL (80.0-100.0) 12/08/20 14:11 MCH 34.0 pg (27.0-34.0) 12/08/20 14:11 MCHC 35.2 g/dL (33.0-35.0) H 12/08/20 14:11 RDW 14.5 % (11.6-16.5) 12/08/20 14:11 Plt Count 258 X10^3/uL (150.0-450.0) 12/08/20 14:11 MPV 7.5 fL (7.4-11.0) 12/08/20 14:11 Neut % (Auto) 84.4 % (42.0-75.0) H 12/08/20 14:11 Lymph % (Auto) 7.9 % (21.0-51.0) L 12/08/20 14:11 [place] % (Auto) 6.5 % (0.0-13.0) 12/08/20 14:11 Eos % (Auto) 0.8 % (0.9-2.9) L 12/08/20 14:11 Baso % (Auto) 0.4 % (0.2-1.0) 12/08/20 14:11 Neut # (Auto) 6.7 x10^3/uL (2.2-4.8) H 12/08/20 14:11 Lymph # (Auto) 0.6 X10^3/uL (1.3-2.9) L 12/08/20 14:11 [place] # (Auto) 0.5 x10^3/uL (0.3-0.8) 12/08/20 14:11 Eos # (Auto) 0.1 x10^3/uL (0.0-0.2) 12/08/20 14:11 Baso # (Auto) 0.0 X10^3/uL (0.0-0.1) 12/08/20 14:11 Absolute Nucleated RBC 0.0 /100WBC 12/08/20 14:11 PT 13.9 SECONDS (11.8-14.3) 12/08/20 14:11 INR Target Range - 12/08/20 14:11 INR 1.12 (0.8-1.3) 12/08/20 14:11 APTT 25.9 SECONDS (22.9-36.5) 12/08/20 14:11 PTT Comment - 12/08/20 14:11 Sodium 133 mmol/L (136-145) L 12/08/20 14:56 Corrected Sodium 134 mmol/L (136-145) L 12/08/20 14:56 Potassium 3.8 mmol/L (3.5-5.1) 12/08/20 14:56 Chloride 96 mmol/L (98-107) L 12/08/20 14:56 Carbon Dioxide 28.4 mmol/L (21-32) 12/08/20 14:56 BUN 63 mg/dL (7-18) H 12/08/20 14:56 Creatinine 3.09 mg/dL (0.55-1.02) H 12/08/20 14:56 Est GFR (MDRD) Af Amer 20 (>60) L 12/08/20 14:56 Est GFR (MDRD) Non-Af 16 (>60) L 12/08/20 14:56 Glucose 142 mg/dL (65-99) H 12/08/20 14:56 Calcium 10.5 mg/dL (8.5-10.1) H 12/08/20 14:56 Corrected Calcium 11.1 mg/dL (8.5-10.1) H 12/08/20 14:56 Magnesium 2.6 mg/dL (1.7-2.9) 12/08/20 14:56 Total Bilirubin 0.50 mg/dL (0.2-1.0) 12/08/20 14:56 AST 11 Units/L (15-37) L 12/08/20 14:56 ALT 18 Units/L (12-78) 12/08/20 14:56 Alkaline Phosphatase 78 Units/L (46-116) 12/08/20 14:56 Creatine Kinase 73 Units/L (26-192) 12/08/20 14:11 CK-MB (CK-2) < 1.0 ng/mL (0-4.0) 12/08/20 14:11 CK/CKMB % Calc 1.4 % (<4) 12/08/20 14:11 Troponin I 0.07 ng/mL (0-1.5) 12/08/20 14:11 Total Protein 7.1 g/dL (6.4-8.2) 12/08/20 14:56 Albumin 3.3 g/dL (3.4-5.0) L 12/08/20 14:56 Globulin 3.8 g/dL (2.5-4.5) 12/08/20 14:56 Albumin/Globulin Ratio 0.9 Ratio (1.1-2.1) L 12/08/20 14:56 EKG Rate: 70 [place]: Normal Rhythm: Afib Block: None Hypertrophy: None ST: Old, Inf and Infarct Opioid Opioid Risk Tool Age (Taye box if 16-45): No History of Preadolescent Sexual Abuse: No Total: 0 Total Score Risk Category: Low Risk Copyright: [place] predicting aberrant behaviors Diagnosis Discharge Problem: CKD (chronic kidney disease) stage 4, GFR 15-29 ml/min, Anxiety Chest pain Qualifiers: Chest pain type: unspecified Qualified Code(s): R07.9 - Chest pain, unspecified Diabetes mellitus, type II Qualifiers: 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
[2020-12-08 14:21] LABS: BASOPHILS % (AUTO) 0.4 % (0.2-1.0); EOSINOPHILS # (AUTO) 0.1 x10^3/uL (0.0-0.2); EOSINOPHILS % (AUTO) 0.8 % (0.9-2.9); HEMATOCRIT 22.3 % (36.0-47.0); HEMOGLOBIN 7.9 g/dL (12.0-16.0); LYMPHOCYTES # (AUTO) 0.6 X10^3/uL (1.3-2.9); LYMPHOCYTES % (AUTO) 7.9 % (21.0-51.0); MEAN CORPUSCULAR HGB CONC 35.2 g/dL (33.0-35.0); MEAN CORPUSCULAR VOLUME 96.6 fL (80.0-100.0); MEAN PLATELET VOLUME 7.5 fL (7.4-11.0); MONOCYTES # (AUTO) 0.5 x10^3/uL (0.3-0.8); MONOCYTES % (AUTO) 6.5 % (0.0-13.0); NEUTROPHILS # (AUTO) 6.7 x10^3/uL (2.2-4.8); NEUTROPHILS % (AUTO) 84.4 % (42.0-75.0); PLATELET COUNT 258 X10^3/uL (150.0-450.0); RED BLOOD COUNT 2.31 X10^6/uL (3.5-5.4); RED CELL DISTRIBUTION WIDTH 14.5 % (11.6-16.5); WHITE BLOOD COUNT 7.9 X10^3/uL (3.6-10.0)
[2020-12-08 14:41] LABS: ALBUMIN 3.3 g/dL (3.4-5.0); CALCIUM 10.5 mg/dL (8.5-10.1); CARBON DIOXIDE 28.4 mmol/L (21-32); COR CA(FOR HYPOALB) 11.1 mg/dL (8.5-10.1); CREATININE 3.09 mg/dL (0.55-1.02); MAGNESIUM 2.6 mg/dL (1.7-2.9); TOTAL PROTEIN 7.1 g/dL (6.4-8.2)
[2020-12-08 15:04] LABS: CKMB % 1.4 % (<4); CREATINE KINASE 73 Units/L (26-192); CREATINE KINASE MB < 1.0 ng/mL (0-4.0); TROPONIN I 0.07 ng/mL (0-1.5)
[2020-12-08] MEDS ORDERED: LOVENOX INJ 100 MG SYR SC ONE ×2 (16:14→16:43)
[2020-12-08] MEDS ORDERED: HEPARIN SODIUM IN D5W 25,000 UNITS/500 ML BAG IV PRN (17:30)
[2020-12-08] MEDS ORDERED: HEPARIN SODIUM INJ 5000 UNITS IVP PRN (17:30)
--- NOTE | 2020-12-08 17:52 | DR.CP ---
HPI Time Seen Time Seen by Provider: 12/08/20 13:23 Complaint Chief Complaint:: Pt here for L-sided chest wall pain, non-radiating, sharp in nature. Pt reports she vomited earlier but is not sure if it was before or after her pain started. Pt is tearful during triage. Pt had COVID booster yesterday. COVID-19 Coronavirus risk:travel/contact w/high risk person: No Has patient experienced Coronavirus symptoms: No Source History Provided: Custodial Mode of Arrival Mode of Arrival: Stretcher Timing Onset of Chief Complaint: 12/08/20 Location Chest Pain Radiation Location: None Associated Signs and Symptoms Associated Signs and Symptoms: None PMH PMH Past Medical History: Yes Past Medical History: Anemia, Anxiety, CHF, COPD, Coronary Artery Disease, CVA, Depression, Diabetes, Dialysis, Hypertension, [place] and Renal Disease Past Medical History Comment: pulmonary edema, CKD stage 1, atrial fib, legally blind, dysphagia, osteoarthritis, radiculopathy, TIA, COVID-19 Past Surgical History: Yes Surgical History: Angioplasty/Stents, CABG/Valve Surgery and Hysterectomy Family History History of Family Medical Conditions: Yes Family Medical History: Diabetes Mellitus, Cancer, [place] and Hypertension Social History Alcohol Use: None Do you use any recreational Drugs:: No Lives Where: Custodial Travel Risk Coronavirus risk:travel/contact w/high risk person: No Has patient experienced Coronavirus symptoms: No Infectious screening In the last 2 months have you had wt loss of >10#?: NO Have you had fever, night sweats or hemotysis?: No Have you traveled outside the country in the last 6 months?: No Isolation: Standard PE Vitals Vitals: Temperature 99.9 F Pulse Rate 73 Respiratory Rate 14 Blood Pressure [Right Arm] 178/83 Blood Pressure 138/63 O2 Sat by Pulse Oximetry 97 MDM Differential Diagnosis Differential Diagnosis: Angina, CHF, Myocardial Infarction, Pneumonia and Pulmonary Embolus COURSE Reevaluation 1st: Improved Education/Counseling Education/Counseling: Patient, Education and Counseling Educated On: Treatment, Diagnosis, Prognosis and Needs for Follow Up ROR Labs Reviewed Result Diagrams: 12/08/20 14:11 12/08/20 14:56 Laboratory: WBC 7.9 X10^3/uL (3.6-10.0) 12/08/20 14:11 RBC 2.31 X10^6/uL (3.5-5.4) L 12/08/20 14:11 Hgb 7.9 g/dL (12.0-16.0) L 12/08/20 14:11 Hct 22.3 % (36.0-47.0) L 12/08/20 14:11 MCV 96.6 fL (80.0-100.0) 12/08/20 14:11 MCH 34.0 pg (27.0-34.0) 12/08/20 14:11 MCHC 35.2 g/dL (33.0-35.0) H 12/08/20 14:11 RDW 14.5 % (11.6-16.5) 12/08/20 14:11 Plt Count 258 X10^3/uL (150.0-450.0) 12/08/20 14:11 MPV 7.5 fL (7.4-11.0) 12/08/20 14:11 Neut % (Auto) 84.4 % (42.0-75.0) H 12/08/20 14:11 Lymph % (Auto) 7.9 % (21.0-51.0) L 12/08/20 14:11 [place] % (Auto) 6.5 % (0.0-13.0) 12/08/20 14:11 Eos % (Auto) 0.8 % (0.9-2.9) L 12/08/20 14:11 Baso % (Auto) 0.4 % (0.2-1.0) 12/08/20 14:11 Neut # (Auto) 6.7 x10^3/uL (2.2-4.8) H 12/08/20 14:11 Lymph # (Auto) 0.6 X10^3/uL (1.3-2.9) L 12/08/20 14:11 [place] # (Auto) 0.5 x10^3/uL (0.3-0.8) 12/08/20 14:11 Eos # (Auto) 0.1 x10^3/uL (0.0-0.2) 12/08/20 14:11 Baso # (Auto) 0.0 X10^3/uL (0.0-0.1) 12/08/20 14:11 Absolute Nucleated RBC 0.0 /100WBC 12/08/20 14:11 PT 13.9 SECONDS (11.8-14.3) 12/08/20 14:11 INR Target Range - 12/08/20 14:11 INR 1.12 (0.8-1.3) 12/08/20 14:11 APTT 25.9 SECONDS (22.9-36.5) 12/08/20 14:11 PTT Comment - 12/08/20 14:11 D-Dimer 3.91 ug/ml (0.0-0.57) H* 12/08/20 14:11 Sodium 133 mmol/L (136-145) L 12/08/20 14:56 Corrected Sodium 134 mmol/L (136-145) L 12/08/20 14:56 Potassium 3.8 mmol/L (3.5-5.1) 12/08/20 14:56 Chloride 96 mmol/L (98-107) L 12/08/20 14:56 Carbon Dioxide 28.4 mmol/L (21-32) 12/08/20 14:56 BUN 63 mg/dL (7-18) H 12/08/20 14:56 Creatinine 3.09 mg/dL (0.55-1.02) H 12/08/20 14:56 Est GFR (MDRD) Af Amer 20 (>60) L 12/08/20 14:56 Est GFR (MDRD) Non-Af 16 (>60) L 12/08/20 14:56 Glucose 142 mg/dL (65-99) H 12/08/20 14:56 Calcium 10.5 mg/dL (8.5-10.1) H 12/08/20 14:56 Corrected Calcium 11.1 mg/dL (8.5-10.1) H 12/08/20 14:56 Magnesium 2.6 mg/dL (1.7-2.9) 12/08/20 14:56 Total Bilirubin 0.50 mg/dL (0.2-1.0) 12/08/20 14:56 AST 11 Units/L (15-37) L 12/08/20 14:56 ALT 18 Units/L (12-78) 12/08/20 14:56 Alkaline Phosphatase 78 Units/L (46-116) 12/08/20 14:56 Creatine Kinase 73 Units/L (26-192) 12/08/20 14:11 CK-MB (CK-2) < 1.0 ng/mL (0-4.0) 12/08/20 14:11 CK/CKMB % Calc 1.4 % (<4) 12/08/20 14:11 Troponin I 0.07 ng/mL (0-1.5) 12/08/20 14:11 Total Protein 7.1 g/dL (6.4-8.2) 12/08/20 14:56 Albumin 3.3 g/dL (3.4-5.0) L 12/08/20 14:56 Globulin 3.8 g/dL (2.5-4.5) 12/08/20 14:56 Albumin/Globulin Ratio 0.9 Ratio (1.1-2.1) L 12/08/20 14:56 Opioid Opioid Risk Tool Age (Taye box if 16-45): No History of Preadolescent Sexual Abuse: No Total: 0 Total Score Risk Category: Low Risk Copyright: [employer] [place] predicting aberrant behaviors Diagnosis Discharge Problem: CKD (chronic kidney disease) stage 4, GFR 15-29 ml/min, Anxiety, D-dimer, elevated Chest pain Qualifiers: Chest pain type: unspecified Qualified Code(s): R07.9 - Chest pain, unspecified Diabetes mellitus, type II Qualifiers: Diabetes mellitus shelter insulin use: with shelter use Diabetes mellitus complication status: with kidney complications Diabetes mellitus complication detail: with chronic kidney disease Chronic kidney disease stage: stage 4 (severe) Qualified Code(s): E11.22 - Type 2 diabetes mellitus with diabetic chronic kidney disease Instructions Instructions: Nonspecific Chest Pain
--- NOTE | 2020-12-08 18:38 | RAD ---
CHEST, 1 VIEWHISTORY:CHEST PAIN, SOB,Study: Single view of the chest.Comparison:NoneFindings:Cardiomegaly and pulmonary vascular congestion. No focal consolidations, pleural effusions or pneumothorax. Osseous structures demonstrate no acute abnormality.IMPRESSION:1.Cardiomegaly and pulmonary vascular congestion.Electronically signed by: REFUGIO CRAFT (Dec 08, 2020 18:35:46)
[2020-12-08] MEDS ORDERED: PHARMACY CONSULT LTC MEDICATIONS XX SCH (20:00)
[2020-12-08] MEDS: DUONEB 0.5 MG/3 MG (3 mL) NEB SCH (21:00)
[2020-12-08] MEDS ORDERED: DUONEB 0.5 MG/3 MG (3 mL) NEB ONE (21:07)
[2020-12-08] MEDS ORDERED: ATIVAN INJ 2 MG VIAL IVP PRN (22:22)
[2020-12-08] MEDS ORDERED: ATIVAN INJ 2 MG VIAL ONE (22:25)
[2020-12-09] MEDS ORDERED: TYLENOL #3 TAB (W/CODEINE) PO PRN (01:10)
[2020-12-09] MEDS ORDERED: HEMOCYTE-PLUS PO SCH ×3 (01:10→09:00)
[2020-12-09] MEDS ORDERED: DUONEB 0.5 MG/3 MG (3 mL) NEB SCH ×2 (01:10)
[2020-12-09] MEDS ORDERED: HumuLIN R SUBCUT PRN (01:10)
[2020-12-09] MEDS ORDERED: TUCKS MEDICATED PAD TOP PRN (01:10)
[2020-12-09] MEDS: ENTRESTO 24/26 MG TAB PO SCH ×2 (02:07→10:22)
[2020-12-09] MEDS: COREG TAB 12.5 MG PO SCH ×2 (02:07→10:22)
[2020-12-09] MEDS: KEPPRA TAB 500 MG PO SCH ×3 (02:11→21:50)
[2020-12-09] MEDS: SNACK - Diabetic Appropriate PO SCH ×2 (02:11→21:50)
[2020-12-09] MEDS: LEVEMIR SC SCH (02:12)
[2020-12-09] MEDS: LIPITOR TAB 40 MG PO SCH ×2 (02:12→21:50)
[2020-12-09] MEDS: LASIX PO SCH ×3 (02:12→21:50)
[2020-12-09 05:30] LABS: BASOPHILS % (AUTO) 0.5 % (0.2-1.0); EOSINOPHILS # (AUTO) 0.1 x10^3/uL (0.0-0.2); HEMATOCRIT 21.3 % (36.0-47.0); HEMOGLOBIN 7.5 g/dL (12.0-16.0); LYMPHOCYTES # (AUTO) 0.9 X10^3/uL (1.3-2.9); LYMPHOCYTES % (AUTO) 16.4 % (21.0-51.0); MEAN CORPUSCULAR HEMOGLOBIN 33.8 pg (27.0-34.0); MEAN CORPUSCULAR HGB CONC 35.1 g/dL (33.0-35.0); MEAN CORPUSCULAR VOLUME 96.2 fL (80.0-100.0); MEAN PLATELET VOLUME 7.9 fL (7.4-11.0); MONOCYTES # (AUTO) 0.6 x10^3/uL (0.3-0.8); MONOCYTES % (AUTO) 10.4 % (0.0-13.0); NEUTROPHILS # (AUTO) 4.1 x10^3/uL (2.2-4.8); NEUTROPHILS % (AUTO) 71.7 % (42.0-75.0); PLATELET COUNT 240 X10^3/uL (150.0-450.0); RED BLOOD COUNT 2.21 X10^6/uL (3.5-5.4); RED CELL DISTRIBUTION WIDTH 14.8 % (11.6-16.5); WHITE BLOOD COUNT 5.7 X10^3/uL (3.6-10.0)
[2020-12-09 05:47] LABS: CALCIUM 10.6 mg/dL (8.5-10.1); CARBON DIOXIDE 28.1 mmol/L (21-32); CHOL/HDL RATIO 2.6 (0.0-5.0); COR CA(FOR HYPOALB) 11.4 mg/dL (8.5-10.1); CREATININE 3.28 mg/dL (0.55-1.02); MAGNESIUM 2.6 mg/dL (1.7-2.9); TOTAL PROTEIN 6.6 g/dL (6.4-8.2)
--- NOTE | 2020-12-09 06:43 | RAD ---
HISTORYShortness of breathSTUDYChest AP [id number]/03/2021FINDINGSPati ent is rotated to the left. Patient is status post median sternotomy. There is a right-sided central line with its tip in the superior vena cava near the cavoatrial junction. Heart remains enlarged. No congestive heart failure is noted. No acute alveolar infiltrates or pleural effusions are identified. Bony thorax is unremarkable.IMPRESSIONCardiomegaly without congestive heart failureNo definite acute infiltratesElectronically signed by: GALILEO RODRIGES (Dec 09, 2020 06:40:45)
[2020-12-09] MEDS ORDERED: IRON FOLIC ACID MV MIN CMB PO SCH (09:00)
[2020-12-09] MEDS ORDERED: ZOLOFT PO SCH ×2 (09:00→21:00)
[2020-12-09] MEDS ORDERED: IRON PO SCH (09:00)
[2020-12-09] MEDS ORDERED: CHOLECALCIFEROL PO SCH (09:00)
[2020-12-09 09:04] LABS: CKMB % 0.8 % (<4); CREATINE KINASE 128 Units/L (26-192); CREATINE KINASE MB < 1.0 ng/mL (0-4.0); TROPONIN I 0.07 ng/mL (0-1.5)
[2020-12-09] MEDS ORDERED: ZOLOFT ONE ×2 (09:07→22:00)
[2020-12-09] MEDS: DUONEB 0.5 MG/3 MG (3 mL) NEB SCH ×4 (09:15→20:34)
[2020-12-09] MEDS ORDERED: NS 500 ML IV 500 ML IV ONE (09:59)
[2020-12-09] MEDS: SYNTHROID 25 mcg TAB PO SCH (10:00)
[2020-12-09] MEDS: NORVASC TAB 5 MG PO SCH (10:00)
[2020-12-09] MEDS: MILK OF MAGNESIA PO SCH (10:00)
[2020-12-09] MEDS: CORDARONE TAB 200 MG PO SCH (10:00)
[2020-12-09] MEDS: ZAROXOLYN PO SCH (10:00)
[2020-12-09] MEDS: EFFEXOR XR 37.5 MG CAP 24-HR PO SCH (10:00)
[2020-12-09] MEDS: FOLIC ACID TAB 1 MG PO SCH (10:00)
[2020-12-09] MEDS: MICRO K EXTEN CAP 10 MEQ PO SCH (10:00)
[2020-12-09] MEDS ORDERED: TYLENOL 325 MG TAB PO PRN (10:10)
[2020-12-09] MEDS ORDERED: BENADRYL INJ 50 MG VIAL IVP PRN (10:10)
[2020-12-09 10:36] VITALS: BMI 31.3
[2020-12-09] MEDS: PLAVIX PO SCH (10:36)
[2020-12-09] MEDS: HEMOCYTE-PLUS PO SCH (10:38)
[2020-12-09] MEDS: VITAMIN D3 25 mcg (1,000 UNITS) PO SCH (10:38)
--- NOTE | 2020-12-09 11:07 | NM ---
HISTORYElevated D-dimer, chest painSTUDYNuclear medicine perfusion lung scanTechnique: Patient received intravenous injection 5.4 millicuries technetium 99 MAA.COMPARISONChest x-ray same dateFINDINGSThere is symmetric perfusion without significant subsegmental, segmental, or lobar perfusion defects. Probability of acute pulmonary thromboembolic disease is felt to be low.IMPRESSIONLow probability acute pulmonary thromboembolic diseaseElectronically signed by: GALILEO RODRIGES (Dec 09, 2020 11:04:30)
--- NOTE | 2020-12-09 11:20 | DR.H&P ---
H&P - History & Physical for Day of: H&P Date: 12/08/20 - Chief Complaint Chief Complaint: CHEST PAIN - History of Present Illness History of Present Illness: IS A 65 YEAR OLD PATIENT OF OURS. SHE IS A RESIDENT OF [facility]. SHE PRESENTED TO THE ER FROM THE [facility] ON 12/08 WITH REPORTS OF LEFT SIDED CHEST PAIN. WHEN ASKED TO CHARACTERIZE THE PAIN, PATIENT REPORTS SHARP, NON-RADIATING PAIN. PATIENT DENIES SHORTNESS OF BREATH. SHE ADMITS TO VOMITING, BUT DOESNT REMEMBER IF IT WAS BEFORE OR AFTER PAIN STARTED. [facility] STAFF REPORTS THAT PATIENT HAD A COVID BOOSTER ON 12/07. HER PMH INCLUDES: Anemia, Anxiety, CHF, COPD, Coronary Artery Disease, CVA, Depression, Diabetes, Dialysis, Hypertension, [place], Renal Disease, atrial fib, legally blind, dysphagia, osteoarthritis, radiculopathy, TIA, COVID-19. SURGICAL HISTORY INCLUDES: Angioplasty/Stents, CABG/Valve Surgery and Hysterectomy. ON ARRIVAL TO THE ER, SHE WAS REPORTEDLY VERY ANXIOUS AND UPSET. HER VITALS WERE 99.9-70-23-100%-135/80. LABS WERE OBTAINED. ABNORMAL LAB VALUES INCLUDE THE FOLLOWING: RBC 2.31, HGB 7.9, HCT 22.3, D-DIMER 3.91, SODIUM 133, CHLORIDE 96, BUN 63, CREATININE 3.09, GLUCOSE 142, CALCIUM 10.5, AST 11, ALBUMIN 3.3. A CHEST XRAY WAS OBTAINED AND REVEALED: CARDIOMEGALY AND PULMONARY VASCULAR CONGESTION. EKG REVEALED: ATRIAL FIBRILLATION WITH HR 70. IN THE ER, SHE WAS GIVEN XANAX 1MG PO X 1, LOVENOX 100MG SC X 1. SHE WAS ADMITTED TO THE HOSPITAL FOR FURTHER EVALUATION AND TREATMENT OF CHEST PAIN, ELEVATED D-DIMER, ANEMIA, AND CHRONIC KIDNEY DISEASE. SHE WAS STARTED ON LOVENOX 100MG SC DAILY, HUMULIN R SLIDING SCALE, OTBS ACHS, ATIVAN 1MG IV Q8H PRN, AND HER HOME MEDICATIONS WERE RESUMED. WE PLANNED TO REPEAT CARDIAC ENZYMES AND EKGS AND OBTAIN A VQ SCAN. OTHERWISE, WE PLANNED TO FOLLOW UP WITH AM LABS AND CONTINUE TO MONITOR. AM LABS REVEALED HGB 7.5, HCT 21.3. TODAY, WE WILL TRANSFUSE TWO UNITS OF PACKED RED BLOOD CELLS. VQ SCAN RESULTS ARE PENDING. TIME SPENT ON CLINICAL ASSESSMENT, REVIEWING LABS AND IMAGING, DECISION MAKING, AND DOCUMENTATION GREATER THAN 75 MINUTES. - Past Medical History Past Medical History: [place], Coronary Artery Disease, Hypertension, Diabetes, Renal Disease, Dialysis, Depression, Anxiety, Anemia, CVA, COPD, CHF Additional Medical History: atrial fib, legally blind, dysphagia, osteoarthritis, radiculopathy, TIA, COVID-19. - Past Surgical History Surgical History: Angioplasty/Stents, CABG/Valve Surgery, Hysterectomy - Family History Family Medical History: Diabetes Mellitus, Cancer, [place], Hypertension - Social History Does patient currently use any type of tobacco product: No Have you used tobacco products in the last 12 months: No Type of Tobacco Use: None Does any household member use tobacco: No Alcohol Use: None Drug Use: Prescription Drugs - Medications Home Medications: Sulfa (Sulfonamide Antibiotics) [SULFA] Allergy (Verified 09/29/20 11:08) ciprofloxacin [From Cipro] Adverse Reaction (Verified 09/29/20 11:08) CONTINUE taking the following medications B [id number] [Ferrocite Plus] 1 tab PO ONCE 12/08/20 [History] acetaminophen-codeine 1 tab PO Q6HR PRN 12/08/20 [History] alprazolam 0.25 mg PO DAILY 12/08/20 [History] insulin detemir U-100 [Levemir U-100 Insulin] 5 unit SUBCUT QHS 12/08/20 [History] magnesium hydroxide [Milk of Magnesia] 30 ml PO DAILY 12/08/20 [History] metolazone 5 mg PO DAILY 12/08/20 [History] potassium chloride 10 meq PO DAILY 12/08/20 [History] venlafaxine 37.5 mg PO DAILY 12/08/20 [History] - Review of Systems Constitutional: Weakness Eyes: No Symptoms Reported ENT: No Symptoms Reported Respiratory: No Symptoms Reported Cardiovascular: Chest Pain Gastrointestinal: See HPI, Vomiting Genitourinary: No Symptoms Reported Musculoskeletal: No Symptoms Reported Skin: No Symptoms Reported Neurological: See HPI, Weakness - Physical Exam Vital Signs: Temperature 99.4 F Pulse Rate [Left] 58 Pulse Rate 60 Respiratory Rate 20 Blood Pressure [Right Arm] 120/58 Blood Pressure 139/62 O2 Sat by Pulse Oximetry 98 Oriented: Normal Eyes: Normal Ear: Normal Nose: Normal Throat: Normal Respiratory: Diminished Throughout Cardiovascular: Normal : Normal Auscultation: Bowel Sounds: Normal Palpation: Normal Tenderness: Normal Skin: Normal Musculoskeletal: Normal Psychiatric: Anxiety Mood Description: Sad, Anxious Affect: Anxious Speech Pattern: Clear - Assessment/Plan (1) Anemia Qualifiers: Anemia type: iron deficiency Iron deficiency anemia type: unspecified iron deficiency Qualified Code(s): D50.9 - Iron deficiency anemia, unspecified Status: Acute Plan: ADMIT, TRANSFUSE 2 UNITS PRBC, LOVENOX 100MG SC DAILY, HUMULIN R SLIDING SCALE, OTBS ACHS, ATIVAN 1MG IV Q8H PRN, AND HER HOME MEDICATIONS WERE RESUMED (2) Chest pain Qualifiers: Chest pain type: unspecified Qualified Code(s): R07.9 - Chest pain, unspecified Status: Acute (3) CKD (chronic kidney disease) stage 4, GFR 15-29 ml/min Status: Acute (4) D-dimer, elevated Status: Acute - Allergies Allergies/Adverse Reactions: Allergies Allergy/AdvReac Type Severity Reaction Status Date / Time Sulfa (Sulfonamide Allergy Verified 09/29/20 11:08 Antibiotics) [SULFA] ciprofloxacin [From Cipro] AdvReac Verified 09/29/20 11:08
[2020-12-09 12:05] LABS: CKMB % 0.9 % (<4); CREATINE KINASE MB 1.4 ng/mL (0-4.0); TROPONIN I 0.07 ng/mL (0-1.5)
[2020-12-09] MEDS: XANAX PO PRN (12:32)
[2020-12-09] MEDS ORDERED: LOVENOX INJ 100 MG SYR SC SCH (16:00)
[2020-12-09 21:05] LABS: HEMATOCRIT 26.4 % (36.0-47.0); HEMOGLOBIN 9.2 g/dL (12.0-16.0)
[2020-12-10] MEDS: COREG TAB 12.5 MG PO SCH ×2 (00:53→09:14)
[2020-12-10] MEDS: LEVEMIR SC SCH (00:54)
[2020-12-10] MEDS: ENTRESTO 24/26 MG TAB PO SCH ×2 (01:12→09:15)
[2020-12-10 05:56] LABS: CALCIUM 10.6 mg/dL (8.5-10.1); CARBON DIOXIDE 29.3 mmol/L (21-32); COR CA(FOR HYPOALB) 11.4 mg/dL (8.5-10.1); CREATININE 2.81 mg/dL (0.55-1.02); TOTAL PROTEIN 6.8 g/dL (6.4-8.2)
[2020-12-10 06:02] LABS: BASOPHILS % (AUTO) 0.4 % (0.2-1.0); EOSINOPHILS # (AUTO) 0.3 x10^3/uL (0.0-0.2); EOSINOPHILS % (AUTO) 3.8 % (0.9-2.9); HEMATOCRIT 27.8 % (36.0-47.0); HEMOGLOBIN 9.7 g/dL (12.0-16.0); LYMPHOCYTES # (AUTO) 1.3 X10^3/uL (1.3-2.9); LYMPHOCYTES % (AUTO) 18.9 % (21.0-51.0); MEAN CORPUSCULAR HEMOGLOBIN 32.8 pg (27.0-34.0); MEAN CORPUSCULAR HGB CONC 34.8 g/dL (33.0-35.0); MEAN CORPUSCULAR VOLUME 94.4 fL (80.0-100.0); MEAN PLATELET VOLUME 7.5 fL (7.4-11.0); MONOCYTES # (AUTO) 0.9 x10^3/uL (0.3-0.8); MONOCYTES % (AUTO) 13.4 % (0.0-13.0); NEUTROPHILS # (AUTO) 4.3 x10^3/uL (2.2-4.8); NEUTROPHILS % (AUTO) 63.5 % (42.0-75.0); PLATELET COUNT 222 X10^3/uL (150.0-450.0); RED BLOOD COUNT 2.94 X10^6/uL (3.5-5.4); WHITE BLOOD COUNT 6.8 X10^3/uL (3.6-10.0)
--- NOTE | 2020-12-10 06:14 | RAD ---
HISTORYSOBSTUDYCHEST, 1 VIEWCOMPARISONOne day prior.TECHNIQUEAP chest.FINDINGSDual-lumen right IJ central line in good position. Post median sternotomy and CABG. The cardiac silhouette is stably enlarged. Mediastinal contours appear stable. Suspect a left base opacity with silhouetting of the peripheral left hemidiaphragm. Stable pulmonary vascular congestion. No definite pneumothorax. Cannot exclude a left-sided pleural effusion.IMPRESSIONSuboptimal evaluation of the left base with suspected left base opacity given silhouetting of the left hemidiaphragm. This could represent pleural effusion, atelectasis, or pneumonia. Alternatively this appearance can be caused by pericardial fat.Electronically signed by: Jackson Tan (Dec 10, 2020 06:12:10)
[2020-12-10] MEDS: DUONEB 0.5 MG/3 MG (3 mL) NEB SCH (08:15)
[2020-12-10] MEDS: CORDARONE TAB 200 MG PO SCH (09:14)
[2020-12-10] MEDS: EFFEXOR XR 37.5 MG CAP 24-HR PO SCH (09:14)
[2020-12-10] MEDS: LASIX PO SCH (09:15)
[2020-12-10] MEDS: FOLIC ACID TAB 1 MG PO SCH (09:15)
[2020-12-10] MEDS: HEMOCYTE-PLUS PO SCH (09:15)
[2020-12-10] MEDS: KEPPRA TAB 500 MG PO SCH (09:15)
[2020-12-10] MEDS: MICRO K EXTEN CAP 10 MEQ PO SCH (09:16)
[2020-12-10] MEDS: MILK OF MAGNESIA PO SCH (09:16)
[2020-12-10] MEDS: VITAMIN D3 25 mcg (1,000 UNITS) PO SCH (09:17)
[2020-12-10] MEDS: PLAVIX PO SCH (09:17)
[2020-12-10] MEDS: SYNTHROID 25 mcg TAB PO SCH (09:17)
[2020-12-10] MEDS: NORVASC TAB 5 MG PO SCH (09:17)
[2020-12-10] MEDS: ZAROXOLYN PO SCH (09:18)
[2020-12-10] MEDS ORDERED: PROCRIT or EPOGEN VIAL 10,000 UNITS SC ONE (09:26)
[2020-12-10] MEDS: XANAX PO PRN (10:33)
[2020-12-10 12:12] VITALS: BP 128/61
== END 2020-12-10 12:23 ==
LOC: ER 13:14 → U 13:14 → ICU 22:28
PROVIDERS: ADMIT Internal Medicine; ATTEND Internal Medicine
DX: I25.10 Atherosclerotic heart disease of native coronary artery without angina pectoris; I12.9 Hypertensive chronic kidney disease with stage 1 through stage 4 chronic kidney disease, or unspecified chronic kidney disease; N18.4 Chronic kidney disease, stage 4 (severe); R07.89 Other chest pain; R79.1 Abnormal coagulation profile; D63.1 Anemia in chronic kidney disease; F41.8 Other specified anxiety disorders; E11.22 Type 2 diabetes mellitus with diabetic chronic kidney disease; E11.65 Type 2 diabetes mellitus with hyperglycemia; Z79.4 Long term (current) use of insulin; J44.9 Chronic obstructive pulmonary disease, unspecified; R26.89 Other abnormalities of gait and mobility; I48.91 Unspecified atrial fibrillation

== ENCOUNTER 2021-10-31 15:00 | Inpatient (IN) ==
--- NOTE | 2021-10-31 15:07 | DR.SOBA ---
HPI Time Seen Time Seen by Provider: 10/31/21 15:07 HPI Comment HPI Comment: PATIENT IS 66YR OLD FEMALE IN ER WITH INCREASING SOB TIMES 3 DAYS. WORSE TODAY. HISTORY CHF. Complaints Chief Complaint Doctors Comments: SOB. Reviewed Nurses Notes Reviewed: Yes Source History Provided: Patient and [facility] Mode of Arrival Mode of Arrival: Stretcher Context Onset:: At Rest PE Risk Factors:: None Modifying Factors Worsens:: Exertion and Lying Flat Improves:: Rest and Sitting Up Associated Signs and Symptoms Associated Signs and Symptoms: Leg Swelling If Cough Cough: Productive and Clear PMH PMH Past Medical History: Anemia, Anxiety, CHF, COPD, Coronary Artery Disease, Depression, Diabetes, Dyslipidemia, Hypertension, [place], Renal Disease and Seizures Past Surgical History: Yes Surgical History: CABG/Valve Surgery Family History Family Medical History: Diabetes Mellitus, Cancer, [place] and Hypertension Social History Do you use any recreational Drugs:: No PE Vital Signs Vitals: Temperature 98.1 F Pulse Rate 59 Respiratory Rate 28 Blood Pressure [Right Arm] 162/76 Blood Pressure 163/91 O2 Sat by Pulse Oximetry 96 ROR Labs Reviewed Result Diagrams: 10/31/21 15:09 10/31/21 15:09 Laboratory: WBC 7.1 X10^3/uL (3.6-10.0) 10/31/21 15:09 RBC 3.22 X10^6/uL (3.5-5.4) L 10/31/21 15:09 Hgb 10.3 g/dL (12.0-16.0) L 10/31/21 15:09 Hct 30.9 % (36.0-47.0) L 10/31/21 15:09 MCV 95.9 fL (80.0-100.0) 10/31/21 15:09 MCH 31.9 pg (27.0-34.0) 10/31/21 15:09 MCHC 33.2 g/dL (33.0-35.0) 10/31/21 15:09 RDW 15.4 % (11.6-16.5) 10/31/21 15:09 Plt Count 267 X10^3/uL (150.0-450.0) 10/31/21 15:09 MPV 7.1 fL (7.4-11.0) L 10/31/21 15:09 Neut % (Auto) 71.6 % (42.0-75.0) 10/31/21 15:09 Lymph % (Auto) 17.3 % (21.0-51.0) L 10/31/21 15:09 Castro % (Auto) 6.3 % (0.0-13.0) 10/31/21 15:09 Eos % (Auto) 4.0 % (0.9-2.9) H 10/31/21 15:09 Baso % (Auto) 0.8 % (0.2-1.0) 10/31/21 15:09 Neut # (Auto) 5.1 x10^3/uL (2.2-4.8) H 10/31/21 15:09 Lymph # (Auto) 1.2 X10^3/uL (1.3-2.9) L 10/31/21 15:09 Castro # (Auto) 0.4 x10^3/uL (0.3-0.8) 10/31/21 15:09 Eos # (Auto) 0.3 x10^3/uL (0.0-0.2) H 10/31/21 15:09 Baso # (Auto) 0.1 X10^3/uL (0.0-0.1) 10/31/21 15:09 Absolute Nucleated RBC 0.0 /100WBC 10/31/21 15:09 Sodium 139 mmol/L (136-145) 10/31/21 15:09 Corrected Sodium 143 mmol/L (136-145) 10/31/21 15:09 Potassium 4.3 mmol/L (3.5-5.1) 10/31/21 15:09 Chloride 105 mmol/L (98-107) 10/31/21 15:09 Carbon Dioxide 29.3 mmol/L (21-32) 10/31/21 15:09 BUN 36 mg/dL (7-18) H 10/31/21 15:09 Creatinine 2.39 mg/dL (0.55-1.02) H 10/31/21 15:09 Est GFR (MDRD) Af Amer 26 (>60) L 10/31/21 15:09 Est GFR (MDRD) Non-Af 22 (>60) L 10/31/21 15:09 Glucose 256 mg/dL (65-99) H 10/31/21 15:09 Calcium 9.1 mg/dL (8.5-10.1) 10/31/21 15:09 Corrected Calcium 10.2 mg/dL (8.5-10.1) H 10/31/21 15:09 Total Bilirubin 0.20 mg/dL (0.2-1.0) 10/31/21 15:09 AST 9 Units/L (15-37) L 10/31/21 15:09 ALT 13 Units/L (12-78) 10/31/21 15:09 Alkaline Phosphatase 106 Units/L (46-116) 10/31/21 15:09 Creatine Kinase 61 Units/L (26-192) 10/31/21 15:09 Troponin I High Sens 35.6 ng/L (4.0-60.0) 10/31/21 15:09 B-Natriuretic Peptide 1250 pg/mL (0-79) H* 10/31/21 15:09 Total Protein 6.8 g/dL (6.4-8.2) 10/31/21 15:09 Albumin 2.6 g/dL (3.4-5.0) L 10/31/21 15:09 Globulin 4.2 g/dL (2.5-4.5) 10/31/21 15:09 Albumin/Globulin Ratio 0.6 Ratio (1.1-2.1) L 10/31/21 15:09 Opioid Opioid Risk Tool Age (Taye box if 16-45): No History of Preadolescent Sexual Abuse: No Total: 0 Total Score Risk Category: Low Risk Copyright: Shade [place] predicting aberrant behaviors Discharge Plan Diagnosis Discharge Problem: Acute exacerbation of CHF (congestive heart failure), COPD exacerbation, SOB (shortness of breath) Discharge Plan Patient Disposition: ADMITTED INPATIENT Condition: Stable Prescriptions: No Action Novolin R Regular U-100 Insuln 100 unit/mL Solution 1 sliding scale dose SUBCUT USEASDIRECTD ipratropium-albuterol 0.5 mg-3 mg(2.5 mg base)/3 mL Solution For Nebulization 3 ml INHALATION QID amiodarone 200 mg tablet 200 mg PO DAILY Label Comments: 200 mg Oral 1 x daily at BEDtime sacubitril-valsartan 24-26 mg Tablet 1 tab PO BID iron-folic acid-mv, min cmb#15 106 mg iron- 1 mg Capsule 1 cap PO DAILY atorvastatin 40 mg Tablet 40 mg PO QHS carvedilol 12.5 mg tablet 12.5 mg PO BID Label Comments: 12.5 mg Oral 2 x daily levetiracetam 500 mg tablet 500 mg PO BID Label Comments: 1250 mg Oral 2 x daily clopidogrel 75 mg tablet 75 mg PO DAILY Label Comments: 75 mg Oral 1 x daily levothyroxine 25 mcg tablet 25 mcg PO DAILY Label Comments: 25 mcg Oral 1 x daily folic acid 1 mg Tablet 1 mg PO DAILY cholecalciferol (vitamin D3) 10 mcg (400 unit) Tablet 400 unit PO DAILY amlodipine [Norvasc] 5 mg Tablet 5 mg PO DAILY Qty: 30 3RF Rx Instructions: take one tablet daily metolazone 5 mg tablet 5 mg PO DAILY acetaminophen-codeine 300-30 mg tablet 1 tab PO Q6HR PRN (Reason: Pain) alprazolam 0.25 mg tablet 0.25 mg PO DAILY magnesium hydroxide [Milk of Magnesia] 400 mg/5 mL Suspension 30 ml PO DAILY Ferrocite Plus 106 mg iron- 1 mg Tablet 1 tab PO ONCE Levemir U-100 Insulin 100 unit/mL solution 8 unit SUBCUT QHS furosemide 20 mg Tablet 20 mg PO BID Qty: 60 5RF Rx Instructions: take one tablet twice a day Procrit 10,000 unit/mL Solution 10,000 unit SUBCUT .MON,WED,FRI Qty: 90 5RF Rx Instructions: PROCRIT 10,000 UNITS SC ON MON,WED,FRI IF HGB IS LESS THAN 10. ondansetron HCl 4 mg tablet 4 mg PO Q8H PRNQty: 14 0RF aspirin 81 mg Tablet,Delayed Release (Dr/Ec) 81 mg PO DAILY venlafaxine 75 mg capsule,extended release 24hr 75 mg PO DAILY Health Concerns: Post Hospitalization: new medications and changes needed to prevent readmission or further decline. Pt educated and given instructions on all concerns. Plan of Treatment: Continue with present treatment and follow up plan. Pt is to keep follow up appointment as instructed and take medications as ordered. Orders to Discharge Patient Discharge Orders: Transfer (Routine); Ordered 10/31/21 Ordered By: YIFAN KELLY Follow ups/Referrals Follow ups/Referrals: Rohit Hawkins [Primary Care Provider] - 3 days Instructions Stand Alone Forms: Precautions for COVID19, [facility], Patient Portal, Social Distancing
[2021-10-31] MEDS ORDERED: LASIX IVP ONE ×2 (15:31→15:40)
[2021-10-31 15:43] LABS: BASOPHILS # (AUTO) 0.1 X10^3/uL (0.0-0.1); BASOPHILS % (AUTO) 0.8 % (0.2-1.0); EOSINOPHILS # (AUTO) 0.3 x10^3/uL (0.0-0.2); HEMATOCRIT 30.9 % (36.0-47.0); HEMOGLOBIN 10.3 g/dL (12.0-16.0); LYMPHOCYTES # (AUTO) 1.2 X10^3/uL (1.3-2.9); LYMPHOCYTES % (AUTO) 17.3 % (21.0-51.0); MEAN CORPUSCULAR HEMOGLOBIN 31.9 pg (27.0-34.0); MEAN CORPUSCULAR HGB CONC 33.2 g/dL (33.0-35.0); MEAN CORPUSCULAR VOLUME 95.9 fL (80.0-100.0); MEAN PLATELET VOLUME 7.1 fL (7.4-11.0); MONOCYTES # (AUTO) 0.4 x10^3/uL (0.3-0.8); MONOCYTES % (AUTO) 6.3 % (0.0-13.0); NEUTROPHILS # (AUTO) 5.1 x10^3/uL (2.2-4.8); NEUTROPHILS % (AUTO) 71.6 % (42.0-75.0); RED BLOOD COUNT 3.22 X10^6/uL (3.5-5.4); RED CELL DISTRIBUTION WIDTH 15.4 % (11.6-16.5); WHITE BLOOD COUNT 7.1 X10^3/uL (3.6-10.0)
--- NOTE | 2021-10-31 16:03 | RAD ---
HISTORYShortness of breath, chest painSTUDYSingle-view [id number]/21/2022FINDINGSThe trachea is midline. The cardiac silhouette is clinics cardiomegaly. Prior changes of median sternotomy are observed. Increased interstitial changes with prominent vascular markings are observed consistent with underlying CHF. The bony thorax is unremarkable.IMPRESSIONIncreased interstitial changes with prominent vascular markings are observed consistent with underlying CHF.Electronically signed by: LARISSA LAL (Oct 31, 2021 16:02:06)
[2021-10-31 16:25] LABS: ALBUMIN 2.6 g/dL (3.4-5.0); CALCIUM 9.1 mg/dL (8.5-10.1); COR CA(FOR HYPOALB) 10.2 mg/dL (8.5-10.1); CREATININE 2.39 mg/dL (0.55-1.02); TOTAL PROTEIN 6.8 g/dL (6.4-8.2)
[2021-10-31 16:30] LABS: CARBON DIOXIDE 29.3 mmol/L (21-32)
[2021-10-31] MEDS ORDERED: PULMICORT NEB TX 0.5 MG NEB ONE (19:50)
[2021-10-31] MEDS ORDERED: DUONEB 0.5 MG/3 MG (3 mL) NEB ONE (19:50)
[2021-10-31] MEDS: PULMICORT NEB TX 0.5 MG NEB SCH (20:51)
[2021-10-31] MEDS: DUONEB 0.5 MG/3 MG (3 mL) NEB SCH (20:51)
[2021-11-01] MEDS: DUONEB 0.5 MG/3 MG (3 mL) NEB SCH ×6 (01:07→20:52)
[2021-11-01 05:05] LABS: BASOPHILS % (AUTO) 0.7 % (0.2-1.0); EOSINOPHILS # (AUTO) 0.5 x10^3/uL (0.0-0.2); EOSINOPHILS % (AUTO) 6.8 % (0.9-2.9); HEMOGLOBIN 9.6 g/dL (12.0-16.0); INR 1.32 (0.8-1.3); LYMPHOCYTES # (AUTO) 1.3 X10^3/uL (1.3-2.9); LYMPHOCYTES % (AUTO) 19.6 % (21.0-51.0); MEAN CORPUSCULAR HEMOGLOBIN 31.3 pg (27.0-34.0); MEAN CORPUSCULAR HGB CONC 33.1 g/dL (33.0-35.0); MEAN CORPUSCULAR VOLUME 94.6 fL (80.0-100.0); MEAN PLATELET VOLUME 7.2 fL (7.4-11.0); MONOCYTES # (AUTO) 0.5 x10^3/uL (0.3-0.8); MONOCYTES % (AUTO) 7.9 % (0.0-13.0); NEUTROPHILS # (AUTO) 4.4 x10^3/uL (2.2-4.8); RED BLOOD COUNT 3.07 X10^6/uL (3.5-5.4); RED CELL DISTRIBUTION WIDTH 15.6 % (11.6-16.5); WHITE BLOOD COUNT 6.8 X10^3/uL (3.6-10.0)
[2021-11-01 05:24] LABS: ALBUMIN 2.6 g/dL (3.4-5.0); CALCIUM 9.4 mg/dL (8.5-10.1); CARBON DIOXIDE 31.2 mmol/L (21-32); COR CA(FOR HYPOALB) 10.5 mg/dL (8.5-10.1); CREATININE 2.33 mg/dL (0.55-1.02); TOTAL PROTEIN 6.8 g/dL (6.4-8.2)
--- NOTE | 2021-11-01 07:23 | RAD ---
HISTORYAcute congestive heart failureSTUDYChest AP [id number]/26/2022FINDINGSPatien t is status post median sternotomy. Heart remains enlarged. Pulmonary venous congestion is present. Diffuse interstitial lung changes are present likely reflecting interstitial edema and unchanged from the prior examination. No definite alveolar edema areas of consolidation or pleural effusions identified. Bony thorax is unremarkable.IMPRESSIONCardiomegaly with congestive heart failure not significantly changed from the prior examinationElectronically signed by: GALILEO RODRIGES (Nov 01, 2021 07:20:49)
[2021-11-01] MEDS: PULMICORT NEB TX 0.5 MG NEB SCH ×2 (08:13→20:52)
[2021-11-01 09:38] LABS: ABG ALLEN TEST POS; ABG HCO3 35.3 mmol/L (22-26)
[2021-11-01] MEDS: LASIX IVP SCH (10:09)
[2021-11-01 10:30] LABS: BILIRUBIN,URINE NEGATIVE (NEGATIVE); BLOOD/HEMOGLOBIN,URINE 3+ (NEGATIVE); GLUCOSE, URINE NEGATIVE (NEGATIVE); KETONES,URINE NEGATIVE (NEGATIVE); LEUKOCYTE ESTERASE ,URINE 3+ (NEGATIVE); NITRITES,URINE NEGATIVE (NEGATIVE); PROTEIN,URINE 4+ (NEGATIVE); UROBILINOGEN,URINE NORMAL (NORMAL)
[2021-11-01 10:31] LABS: APPEARANCE,URINE CLOUDY (CLEAR); COLOR,URINE YELLOW (YELLOW)
[2021-11-01 10:44] LABS: BACTERIA,URINE 1+ /HPF (NEGATIVE); SQUAMOUS EPITHELIAL CELL,UR RARE /HPF (NEGATIVE)
[2021-11-01 10:45] VITALS: BMI 39.4
[2021-11-01] MEDS ORDERED: NS 250 ML IV 250 ML IV ONE (12:59)
[2021-11-01] MEDS: ROCEPHIN VIAL 1 GRAM 1 G in NS 100 ML IV 100 ML IV SCH (13:37)
[2021-11-02] MEDS: DUONEB 0.5 MG/3 MG (3 mL) NEB SCH ×6 (00:31→21:00)
[2021-11-02 05:15] LABS: BASOPHILS % (AUTO) 0.5 % (0.2-1.0); EOSINOPHILS # (AUTO) 0.4 x10^3/uL (0.0-0.2); HEMATOCRIT 29.1 % (36.0-47.0); HEMOGLOBIN 9.8 g/dL (12.0-16.0); LYMPHOCYTES # (AUTO) 1.2 X10^3/uL (1.3-2.9); LYMPHOCYTES % (AUTO) 15.9 % (21.0-51.0); MEAN CORPUSCULAR HEMOGLOBIN 31.9 pg (27.0-34.0); MEAN CORPUSCULAR HGB CONC 33.6 g/dL (33.0-35.0); MEAN PLATELET VOLUME 6.9 fL (7.4-11.0); MONOCYTES # (AUTO) 0.6 x10^3/uL (0.3-0.8); MONOCYTES % (AUTO) 7.8 % (0.0-13.0); NEUTROPHILS # (AUTO) 5.2 x10^3/uL (2.2-4.8); NEUTROPHILS % (AUTO) 70.8 % (42.0-75.0); RED BLOOD COUNT 3.07 X10^6/uL (3.5-5.4); RED CELL DISTRIBUTION WIDTH 15.4 % (11.6-16.5); WHITE BLOOD COUNT 7.3 X10^3/uL (3.6-10.0)
[2021-11-02 05:28] LABS: ALBUMIN 2.5 g/dL (3.4-5.0); CALCIUM 9.5 mg/dL (8.5-10.1); CARBON DIOXIDE 33.5 mmol/L (21-32); COR CA(FOR HYPOALB) 10.7 mg/dL (8.5-10.1); CREATININE 2.17 mg/dL (0.55-1.02); TOTAL PROTEIN 6.7 g/dL (6.4-8.2)
--- NOTE | 2021-11-02 06:56 | RAD ---
HISTORYCongestive heart failure, shortness of breathSTUDYChest AP [id number]/27/2022FINDINGSPati ent is status post median sternotomy. Heart remains enlarged. Pulmonary venous congestion is present and unchanged. Diffuse interstitial lung changes again identified likely indicating interstitial edema. This finding is unchanged. No definite alveolar edema identified. Increased density is present in the retrocardiac area of the left lower lobe which could be due to soft tissue attenuation from the patient's cardiomegaly, pleural effusion, consolidation, or atelectasis. Bony thorax is unremarkable.IMPRESSIONContinued cardiomegaly with congestive heart failure not significantly changed from the prior examinationIncreasing density retrocardiac area left lower lobe obscuring left hemidiaphragm. Differential diagnosis as aboveElectronically signed by: GALILEO RODRIGES (Nov 02, 2021 06:55:08)
[2021-11-02] MEDS: PULMICORT NEB TX 0.5 MG NEB SCH ×2 (08:26→21:00)
[2021-11-02] MEDS ORDERED: TYLENOL #3 TAB (W/CODEINE) PO PRN (08:31)
[2021-11-02] MEDS ORDERED: NovoLIN R (or HumuLIN R) SUBCUT SCH (09:00)
[2021-11-02] MEDS ORDERED: MIRALAX POWDER (1 DOSE 17 G) PO SCH (09:00)
[2021-11-02] MEDS: ROCEPHIN VIAL 1 GRAM 1 G in NS 100 ML IV 100 ML IV SCH (09:47)
[2021-11-02] MEDS: KEPPRA TAB 500 MG PO SCH ×2 (09:50→21:17)
[2021-11-02] MEDS: ZAROXOLYN PO SCH (09:50)
[2021-11-02] MEDS: HEMOCYTE-PLUS PO SCH (09:50)
[2021-11-02] MEDS: SYNTHROID 25 mcg TAB PO SCH (09:50)
[2021-11-02] MEDS: ISOSORBIDE DINITRATE PO SCH ×2 (09:51→21:15)
[2021-11-02] MEDS: ASPIRIN EC 81 MG PO SCH (09:51)
[2021-11-02] MEDS: XANAX PO SCH (09:52)
[2021-11-02] MEDS: NORVASC TAB 5 MG PO SCH ×2 (09:52→21:16)
[2021-11-02] MEDS: EFFEXOR XR 75 MG CAP 24-HR PO SCH (09:52)
[2021-11-02] MEDS: APRESOLINE TAB 25 MG PO SCH ×2 (09:52→21:14)
[2021-11-02] MEDS: COREG TAB 12.5 MG PO SCH ×2 (09:52→21:18)
[2021-11-02] MEDS: COLACE CAP 100 MG PO SCH ×2 (09:52→21:14)
[2021-11-02] MEDS: PLAVIX PO SCH (09:53)
[2021-11-02] MEDS: LASIX IVP SCH (09:53)
[2021-11-02] MEDS: CORDARONE TAB 200 MG PO SCH (09:53)
[2021-11-02] MEDS: FOLIC ACID TAB 1 MG PO SCH (09:53)
[2021-11-02] MEDS: MILK OF MAGNESIA PO SCH (09:54)
--- NOTE | 2021-11-02 10:43 | DR.H&P ---
H&P - History & Physical for Day of: H&P Date: 10/31/21 - Chief Complaint Chief Complaint: SOB, LOWER EXTREMITY EDEMA, AMS - History of Present Illness History of Present Illness: IS A 66 YEAR OLD PATIENT OF OURS. SHE IS A RESIDENT OF [facility]. SHE PRESENTED TO THE ER FROM THE SNF WITH REPORTS OF INCREASING SHORTNESS OF BREATH AND LOWER EXTREMITY EDEMA X 3 DAYS. SYMPTOMS BECAME WORSE ON THE DAY OF PRESENTATION TO THE ER. SHORTNESS OF BREATH IS WORSE ON EXERTION AND LYING FLAT. SHE REPORTS THAT IT IMPROVES WITH REST. SHE DOES HAVE A HISTORY OF COPD AND CHF. OTHER PMH INCLUDES CAD, ANXIETY, ANEMIA, DEPRESSION, DM II, DYSLIPIDEMIA, HTN, [place], RENAL DISEASE, SEIZURES, AND CABG. ON ARRIVAL TO THE ER, VITALS WERE: 98.1-59-22-92%-167/74. SHE WAS PLACED ON NASAL CANNULA AT 2-3 LMP. LABS WERE OBTAINED. WBC 7.1, RBC 3.22, HGB 10.3, HCT 30.9, PLT COUNT 267, SODIUM 139, POTASSIUM 4.3, CHLORIDE 105, CARBON DIOXIDE 29.3, BUN 36, CREATININE 2.39, GLUCOSE 256, CALCIUM 9.1, AST 9, ALT 13, ALK PHOS 106, BNP 1250, TOTAL PROTEIN 6.8, ALBUMIN 2.6. CARDIAC ENZYMES WERE WITHIN NORMAL LIMITS. COVID-19 NEGATIVE. BLOOD CULTURES WERE SET UP. A CHEST XRAY WAS OBTAINED AND REVEALED: Increased interstitial changes with prominent vascular markings are observed consistent with underlying CHF. EKG REVEALED: SINUS RHYTHM WITH 1ST DEGREE AV BLOCK WITH OCCASIONAL PVCS. HR 60. A CARY CATHETER WAS INSERTED IN THE ER. IN THE ER, SHE WAS GIVEN LASIX 40MG IV X 1. SHE WAS ADMITTED TO THE HOSPITAL FOR FURTHER EVALUATION AND TREATMENT OF ACUTE EXACERBATION OF CHF, COPD EXACERBATION, AND SHORTNESS OF BREATH. SHE WAS STARTED ON DUONEBS Q4H, PULMICORT NEBS BID, FUROSEMIDE 40MG IV DAILY, AND ROCEPHIN 1G IV DAILY. AFTER ADMISSION, PATIENT BEGAN HAVING INCREASED CONFUSION. A URINALYSIS WAS OBTAINED AND REVEALED: WBC 20-30, RBC 3-5, LEUKOCYTES 3+, BACTERIA 1+. A URINE CULTURE WAS SET UP. AN ABG WAS OBTAINED AND REVEALED: PH 7.370, PC02 61, P02 77, HC03 35.3, 02 SAT 95, BASE EXCESS 8.0, A-A GRADIENT 75, FI02 32.0. OTHERWISE, WE PLAN TO FOLLOW-UP WITH AM LABS AND CONTINUE TO MONITOR. TIME SPENT ON CLINICAL ASSESSMENT, REVIWING LABS AND IMAGING, DECISION MAKING, AND DOCUMENTATION GREATER THAN 75 MINUTES. - Past Medical History Past Medical History: VA, Coronary Artery Disease, Hypertension, Dyslipidemia, Diabetes, Renal Disease, Depression, Anxiety, Anemia, Seizures, COPD, CHF Additional Medical History: atrial fib, legally blind, dysphagia, osteoarthritis, radiculopathy, TIA, COVID-19. - Past Surgical History Surgical History: CABG/Valve Surgery - Family History Family Medical History: Diabetes Mellitus, Cancer, [place], Hypertension - Social History Does patient currently use any type of tobacco product: No Have you used tobacco products in the last 12 months: No Type of Tobacco Use: None Does any household member use tobacco: No Alcohol Use: None Drug Use: None - Medications Home Medications: Sulfa (Sulfonamide Antibiotics) [SULFA] Allergy (Verified 10/31/21 18:43) ciprofloxacin [From Cipro] Adverse Reaction (Verified 10/31/21 18:43) CONTINUE taking the following medications amlodipine 5 mg tablet (Norvasc) 5 mg PO BID 10/31/21 [History] docusate sodium 100 mg capsule (Colace) 100 mg PO BID Constipation 10/31/21 [History] furosemide 20 mg tablet 20 mg PO DAILY 10/31/21 [History] hydralazine 25 mg tablet 25 mg PO BID 10/31/21 [History] isosorbide dinitrate 5 mg tablet (Isordil Titradose) 5 mg PO BID Heart Failure 10/31/21 [History] levothyroxine 25 mcg tablet (Synthroid) 25 mcg PO DAILY 10/31/21 [History] polyethylene glycol 3350 17 gram oral powder packet (Miralax) 1 g PO DAILY constipation 10/31/21 [History] - Review of Systems Constitutional: Weakness Eyes: No Symptoms Reported ENT: No Symptoms Reported Respiratory: Shortness of Breath, SOB with Excertion Cardiovascular: Edema (BLE SWELLING ) Gastrointestinal: No Symptoms Reported Genitourinary: No Symptoms Reported Musculoskeletal: No Symptoms Reported Skin: No Symptoms Reported Neurological: Weakness, Confusion - Physical Exam Vital Signs: Temperature 97.6 F Pulse Rate [Bilateral Radial] 70 Pulse Rate 69 Respiratory Rate 20 Blood Pressure [Right Arm] 173/83 Blood Pressure 163/91 O2 Sat by Pulse Oximetry 94 Oriented: Person, Place Eyes: Normal Ear: Normal Nose: Normal Throat: Normal Respiratory: Diminished Throughout, Rales Throughout Cardiovascular: Bradycardia, Edema (BLE 2+ PITTING EDEMA ) : Normal Auscultation: Bowel Sounds: Normal Palpation: Normal Tenderness: Normal Skin: Normal Musculoskeletal: Normal Psychiatric: Normal Mood Description: Calm Affect: Normal Speech Pattern: Clear - Assessment/Plan (1) Acute exacerbation of CHF (congestive heart failure) Qualifiers: Heart failure type: unspecified Status: Acute Plan: ADMIT, SUPPLEMENTAL OXYGEN, DUONEBS Q4H, PULMICORT NEBS BID, FUROSEMIDE 40MG IV DAILY, AND ROCEPHIN 1G IV DAILY. RESUME HOME MEDS (2) COPD exacerbation Status: Acute (3) Urinary tract infection Qualifiers: Urinary tract infection type: acute cystitis Hematuria presence: with hematuria Qualified Code(s): N30.01 - Acute cystitis with hematuria Status: Acute (4) SOB (shortness of breath) Status: Acute (5) AMS (altered mental status) Qualifiers: Altered mental status type: transient alteration of awareness Qualified Code(s): R40.4 - Transient alteration of awareness Status: Acute - Allergies Allergies/Adverse Reactions: Allergies Allergy/AdvReac Type Severity Reaction Status Date / Time Sulfa (Sulfonamide Allergy Verified 10/31/21 18:43 Antibiotics) [SULFA] ciprofloxacin [From Cipro] AdvReac Verified 10/31/21 18:43
[2021-11-02] MEDS ORDERED: NS 250 ML IV 250 ML IV ONE (12:04)
[2021-11-02] MEDS: VANCOMYCIN IV *PREMIX 1.5 G/300 ML BAG 1.5 G/300 ML PIGGYBACK IV SCH (12:35)
[2021-11-02] MEDS: MIRALAX POWDER (1 DOSE 17 G) PO SCH (12:36)
[2021-11-02] MEDS: ZOSYN VIAL 3.375 GRAMS 3.375 G in NS 100 ML IV 100 ML IV SCH ×3 (14:33→22:26)
[2021-11-02] MEDS: LIPITOR TAB 40 MG PO SCH (21:16)
[2021-11-02] MEDS: SNACK - Diabetic Appropriate PO SCH (21:18)
[2021-11-02] MEDS: VISTARIL PO PRN (21:22)
[2021-11-02] MEDS: LEVEMIR SC SCH (22:00)
[2021-11-03] MEDS: DUONEB 0.5 MG/3 MG (3 mL) NEB SCH ×6 (01:15→20:10)
[2021-11-03] MEDS: ZOSYN VIAL 3.375 GRAMS 3.375 G in NS 100 ML IV 100 ML IV SCH ×3 (05:42→21:14)
[2021-11-03 06:27] LABS: BASOPHILS # (AUTO) 0.1 X10^3/uL (0.0-0.1); EOSINOPHILS # (AUTO) 0.3 x10^3/uL (0.0-0.2); EOSINOPHILS % (AUTO) 4.2 % (0.9-2.9); HEMOGLOBIN 9.3 g/dL (12.0-16.0); LYMPHOCYTES # (AUTO) 0.8 X10^3/uL (1.3-2.9); LYMPHOCYTES % (AUTO) 12.1 % (21.0-51.0); MEAN CORPUSCULAR HEMOGLOBIN 31.8 pg (27.0-34.0); MEAN CORPUSCULAR HGB CONC 33.4 g/dL (33.0-35.0); MEAN CORPUSCULAR VOLUME 95.3 fL (80.0-100.0); MEAN PLATELET VOLUME 7.4 fL (7.4-11.0); MONOCYTES # (AUTO) 0.6 x10^3/uL (0.3-0.8); MONOCYTES % (AUTO) 8.5 % (0.0-13.0); NEUTROPHILS # (AUTO) 4.8 x10^3/uL (2.2-4.8); NEUTROPHILS % (AUTO) 74.2 % (42.0-75.0); RED BLOOD COUNT 2.94 X10^6/uL (3.5-5.4); RED CELL DISTRIBUTION WIDTH 15.4 % (11.6-16.5); WHITE BLOOD COUNT 6.5 X10^3/uL (3.6-10.0)
[2021-11-03 06:35] LABS: ALBUMIN 2.4 g/dL (3.4-5.0); CALCIUM 9.4 mg/dL (8.5-10.1); CARBON DIOXIDE 32.7 mmol/L (21-32); COR CA(FOR HYPOALB) 10.7 mg/dL (8.5-10.1); CREATININE 2.19 mg/dL (0.55-1.02); TOTAL PROTEIN 6.2 g/dL (6.4-8.2)
--- NOTE | 2021-11-03 06:35 | RAD ---
HISTORYCongestive heart failure, COPD, shortness of breathSTUDYChest AP [id number]/28/2022FINDINGSPati ent is status post median sternotomy and CABG. The heart is enlarged. Pulmonary venous congestion is present and unchanged. Diffuse interstitial lung changes present and unchanged and likely represent interstitial edema although a background of chronic interstitial lung disease could be present. There is persistent increased density retrocardiac area of the left lower lobe which could be due to soft tissue attenuation from the patient's cardiomegaly, pleural effusion, consolidation, or atelectasis. Bony thorax is unremarkable.IMPRESSIONNo significant change from the prior examinationElectronically signed by: GALILEO RODRIGES (Nov 03, 2021 06:34:21)
[2021-11-03] MEDS: PULMICORT NEB TX 0.5 MG NEB SCH ×2 (09:00→20:10)
[2021-11-03] MEDS: MIRALAX POWDER (1 DOSE 17 G) PO SCH (09:46)
[2021-11-03] MEDS: VANCOMYCIN IV *PREMIX 1.5 G/300 ML BAG 1.5 G/300 ML PIGGYBACK IV SCH (09:47)
[2021-11-03] MEDS: MILK OF MAGNESIA PO SCH ×2 (09:48→19:02)
[2021-11-03] MEDS: ZAROXOLYN PO SCH (09:48)
[2021-11-03] MEDS: SYNTHROID 25 mcg TAB PO SCH (09:48)
[2021-11-03] MEDS: APRESOLINE TAB 25 MG PO SCH ×2 (09:49→21:11)
[2021-11-03] MEDS: ISOSORBIDE DINITRATE PO SCH ×2 (09:50→21:12)
[2021-11-03] MEDS: HEMOCYTE-PLUS PO SCH (09:50)
[2021-11-03] MEDS: ASPIRIN EC 81 MG PO SCH (09:50)
[2021-11-03] MEDS: COREG TAB 12.5 MG PO SCH ×2 (09:50→21:11)
[2021-11-03] MEDS: FOLIC ACID TAB 1 MG PO SCH (09:51)
[2021-11-03] MEDS: PLAVIX PO SCH (09:54)
[2021-11-03] MEDS: XANAX PO SCH (09:55)
[2021-11-03] MEDS: EFFEXOR XR 75 MG CAP 24-HR PO SCH (09:55)
[2021-11-03] MEDS: NORVASC TAB 5 MG PO SCH ×2 (09:55→21:11)
[2021-11-03] MEDS: CORDARONE TAB 200 MG PO SCH (09:56)
[2021-11-03] MEDS: LASIX IVP SCH (09:56)
[2021-11-03] MEDS: VITAMIN D3 25 mcg (1,000 UNITS) PO SCH (10:01)
[2021-11-03] MEDS: COLACE CAP 100 MG PO SCH ×2 (10:01→21:13)
[2021-11-03] MEDS: KEPPRA TAB 500 MG PO SCH ×2 (10:04→21:10)
[2021-11-03] MEDS: VISTARIL PO PRN (21:11)
[2021-11-03] MEDS: LIPITOR TAB 40 MG PO SCH (21:12)
[2021-11-03] MEDS: LEVEMIR SC SCH (22:00)
[2021-11-03] MEDS: SNACK - Diabetic Appropriate PO SCH (22:18)
[2021-11-04] MEDS: DUONEB 0.5 MG/3 MG (3 mL) NEB SCH ×6 (00:10→20:52)
[2021-11-04] MEDS: ZOSYN VIAL 3.375 GRAMS 3.375 G in NS 100 ML IV 100 ML IV SCH ×3 (05:11→21:23)
[2021-11-04 05:13] LABS: BASOPHILS # (AUTO) 0.2 X10^3/uL (0.0-0.1); BASOPHILS % (AUTO) 2.6 % (0.2-1.0); EOSINOPHILS # (AUTO) 0.4 x10^3/uL (0.0-0.2); EOSINOPHILS % (AUTO) 5.8 % (0.9-2.9); HEMATOCRIT 28.9 % (36.0-47.0); HEMOGLOBIN 9.3 g/dL (12.0-16.0); LYMPHOCYTES # (AUTO) 0.8 X10^3/uL (1.3-2.9); LYMPHOCYTES % (AUTO) 11.7 % (21.0-51.0); MEAN CORPUSCULAR HEMOGLOBIN 30.9 pg (27.0-34.0); MEAN CORPUSCULAR HGB CONC 32.2 g/dL (33.0-35.0); MEAN CORPUSCULAR VOLUME 95.9 fL (80.0-100.0); MEAN PLATELET VOLUME 7.5 fL (7.4-11.0); MONOCYTES # (AUTO) 0.3 x10^3/uL (0.3-0.8); MONOCYTES % (AUTO) 4.8 % (0.0-13.0); NEUTROPHILS # (AUTO) 5.2 x10^3/uL (2.2-4.8); NEUTROPHILS % (AUTO) 75.1 % (42.0-75.0); RED BLOOD COUNT 3.01 X10^6/uL (3.5-5.4); RED CELL DISTRIBUTION WIDTH 15.5 % (11.6-16.5); WHITE BLOOD COUNT 6.9 X10^3/uL (3.6-10.0)
[2021-11-04 05:24] LABS: ALBUMIN 2.5 g/dL (3.4-5.0); CALCIUM 9.1 mg/dL (8.5-10.1); CARBON DIOXIDE 32.7 mmol/L (21-32); COR CA(FOR HYPOALB) 10.3 mg/dL (8.5-10.1); CREATININE 2.44 mg/dL (0.55-1.02); TOTAL PROTEIN 6.5 g/dL (6.4-8.2)
--- NOTE | 2021-11-04 06:24 | RAD ---
HISTORYShortness of breathSTUDYChest AP [id number]/29/2022FINDINGSPati ent is status post median sternotomy and CABG. Heart remains enlarged. Pulmonary venous congestion is present. Diffuse interstitial lung changes are again identified and not significantly different from the prior examination considering a significant difference in film technique. These are likely mostly chronic although superimposed acute pneumonitis or edema cannot be excluded. Increased density remains in the retrocardiac area of the left lower lobe which could be on the basis of soft tissue attenuation from the patient's cardiomegaly, pleural effusion, consolidation, or atelectasis or combination. Bony thorax is unremarkable.IMPRESSIONNo significant change from the prior examination considering a significant difference in film technique.Electronically signed by: GALILEO RODRIGES (Nov 04, 2021 06:22:54)
[2021-11-04] MEDS: PULMICORT NEB TX 0.5 MG NEB SCH ×2 (08:23→20:50)
[2021-11-04] MEDS ORDERED: PHARMACY COMMENT IV NR (08:30)
--- NOTE | 2021-11-04 08:35 | PCM.PROG ---
Progress Note - Progress Note for Day of Date of Exam: 11/02/21 - Subjective Subjective: IS CURRENTLY OBSERVATION STATUS FOR TREATMENT OF ACUTE EXACERBATION OF CHF, COPD, UTI, SOB, AND AMS. TODAY, SHE IS LYING IN BED WITH EYES CLOSED ON MORNING ROUNDS. SHE AWAKENS TO VERBAL STIMULI. SHE ANSWERS QUESTIONS AND FOLLOWS COMMANDS APPROPRIATELY. SHE DOES CONTINUE WITH COMPLAINTS OF SHORTNESS OF BREATH THIS MORNING, BUT DOES REPORT SLIGHT IMPROVEMENT IN SYMPTOMS SINCE ADMISSION. ON EXAMINATION, HEART IS REGULAR IN RATE AND RHYTHM. BILATERAL LUNGS ARE NOTED WITH DIMINISHED LUNG SOUNDS THROUGHOUT. ABDOMEN IS ROUND, SOFT, AND NON-TENDER WITH NORMAL BOWEL SOUNDS NOTED IN ALL QUADRANTS. CARY CATHETER NOTED TO BEDSIDE DRAINAGE. LOWER EXTREMITIES NOTED WITH 1+ PITTING EDEMA. HIS VITALS THIS MORNING ARE: 97.6-70-20-90%-173/83. SHE IS CURRENTLY UTILIZING OXYGEN VIA NASAL CANNULA AT 3 LPM. LABS WERE OBTAINED. WBC 7.3, RBC 3.07, HGB 9.8, HCT 29.1, SODIUM 142, POTASSIUM 3.7, CHLORIDE 105, BUN 34, CREATININE 2.19, GLUCOSE 132, CALCIUM 9.4, AST 7, ALT 12, ALK PHOS 90, BNP 1150, TOTAL PROTEIN 6.2, ALBUMIN 2.4. URINE AND BLOOD CULTURES ARE PENDING. A CHEST XRAY WAS OBTAINED AND REVEALED: Continued cardiomegaly with congestive heart failure not significantly changed from the prior examination. Increasing density retrocardiac area left lower lobe obscuring left hemidiaphragm. SHE IS CURRENTLY RECEIVING DUONEBS Q4H, PULMICORT NEBS BID, FUROSEMIDE 40MG IV DAILY, AND ROCEPHIN 1G IV DAILY. HER HOME MEDICATIONS WERE ALSO RESUMED. WE WILL DISCONTINUE THE ROCEPHIN AND ADD ZOSYN 3.375G IV TID AND VANCOMYCIN 1.5G IV DAILY. OTHERWISE, WE PLAN TO FOLLOW-UP WITH AM LABS AND CONTINUE TO MONITOR. TIME SPENT ON CLINICAL ASSESSMENT, REVIWING LABS AND IMAGING, DECISION MAKING, AND DOCUMENTATION GREATER THAN 45 MINUTES. - Past Medical Family Social History Past Med/Fam/Surg Hx: No changes since H&P Allergies: Allergies Sulfa (Sulfonamide Antibiotics) [SULFA] Allergy (Verified 10/31/21 18:43) ciprofloxacin [From Cipro] Adverse Reaction (Verified 10/31/21 18:43) - Review of Systems ROS: No change since H&P - Vital Signs and I&O's Vital Signs: Temperature 98.6 F Pulse Rate [Bilateral Radial] 53 Pulse Rate 57 Respiratory Rate 20 Blood Pressure [Right Arm] 131/61 Blood Pressure 163/91 O2 Sat by Pulse Oximetry 96 Intake and Output: Intake & Output 11/01/21 11/02/21 11/03/21 11/04/21 11:59 11:59 11:59 11:59 Intake Total 560 / 560 798 / 798 510 / 510 1148 / 1148 Output Total 1750 / 1750 2370 / 2370 980 / 980 700 / 700 Balance -1190 / -1190 -1572 / -1572 -470 / -470 448 / 448 - Physical Exam Oriented: Person, Place Eyes: Normal Ear: Normal Nose: Normal Throat: Normal Respiratory: Diminished Cardiovascular: Normal, Edema (BLE 1+ PITTING EDEMA ) : Normal Auscultation: Bowel Sounds: Normal Palpation: Normal Tenderness: Normal Skin: Normal Musculoskeletal: Normal Psychiatric: Normal Mood Description: Calm Affect: Normal Speech Pattern: Clear, Appropriate - Laboratory and Diagnostics Result Diagrams: 11/04/21 04:39 11/04/21 04:39 Labs: 11/01/21 10:18 Urine,Clean Catch Urine Culture - Final Escherichia Coli Escherichia Coli#2 10/31/21 16:00 Blood Blood Culture - Final 10/31/21 15:44 Blood Blood Culture - Preliminary Laboratory WBC 6.9 X10^3/uL (3.6-10.0) 11/04/21 04:39 RBC 3.01 X10^6/uL (3.5-5.4) L 11/04/21 04:39 Hgb 9.3 g/dL (12.0-16.0) L 11/04/21 04:39 Hct 28.9 % (36.0-47.0) L 11/04/21 04:39 MCV 95.9 fL (80.0-100.0) 11/04/21 04:39 MCH 30.9 pg (27.0-34.0) 11/04/21 04:39 MCHC 32.2 g/dL (33.0-35.0) L 11/04/21 04:39 RDW 15.5 % (11.6-16.5) 11/04/21 04:39 Plt Count 274 X10^3/uL (150.0-450.0) 11/04/21 04:39 MPV 7.5 fL (7.4-11.0) 11/04/21 04:39 Neut % (Auto) 75.1 % (42.0-75.0) H 11/04/21 04:39 Lymph % (Auto) 11.7 % (21.0-51.0) L 11/04/21 04:39 Person % (Auto) 4.8 % (0.0-13.0) 11/04/21 04:39 Eos % (Auto) 5.8 % (0.9-2.9) H 11/04/21 04:39 Baso % (Auto) 2.6 % (0.2-1.0) H 11/04/21 04:39 Neut # (Auto) 5.2 x10^3/uL (2.2-4.8) H 11/04/21 04:39 Lymph # (Auto) 0.8 X10^3/uL (1.3-2.9) L 11/04/21 04:39 Person # (Auto) 0.3 x10^3/uL (0.3-0.8) 11/04/21 04:39 Eos # (Auto) 0.4 x10^3/uL (0.0-0.2) H 11/04/21 04:39 Baso # (Auto) 0.2 X10^3/uL (0.0-0.1) H 11/04/21 04:39 Absolute Nucleated RBC 0.1 /100WBC 11/04/21 04:39 PT 15.9 SECONDS (11.8-14.3) 11/01/21 04:13 INR Target Range - 11/01/21 04:13 INR 1.32 (0.8-1.3) H 11/01/21 04:13 APTT 28.1 SECONDS (22.9-36.5) 11/01/21 04:13 PTT Comment - 11/01/21 04:13 Sample Site Rrad 11/01/21 09:35 ABG pH 7.370 (7.35-7.45) 11/01/21 09:35 ABG pCO2 61.0 mmHg (35.0-45.0) H* 11/01/21 09:35 ABG pO2 77.0 mmHg (80.0-100.0) L 11/01/21 09:35 ABG HCO3 35.3 mmol/L (22-26) H* 11/01/21 09:35 ABG O2 Saturation 95.0 % (90-100) 11/01/21 09:35 ABG Base Excess 8.0 mmol/L (-2.0-2.0) H 11/01/21 09:35 Kevin Test Pos 11/01/21 09:35 A-a Gradient 75.0 mmHg 11/01/21 09:35 FiO2 32.0 11/01/21 09:35 Blood Gas Comments Surinder well ms/eb 11/01/21 09:35 Sodium 143 mmol/L (136-145) 11/04/21 04:39 Corrected Sodium 144 mmol/L (136-145) 11/04/21 04:39 Potassium 3.8 mmol/L (3.5-5.1) 11/04/21 04:39 Chloride 105 mmol/L (98-107) 11/04/21 04:39 Carbon Dioxide 32.7 mmol/L (21-32) H 11/04/21 04:39 BUN 36 mg/dL (7-18) H 11/04/21 04:39 Creatinine 2.44 mg/dL (0.55-1.02) H 11/04/21 04:39 Est GFR (MDRD) Af Amer 26 (>60) L 11/04/21 04:39 Est GFR (MDRD) Non-Af 21 (>60) L 11/04/21 04:39 Glucose 126 mg/dL (65-99) H 11/04/21 04:39 POC Glucose (mg/dL) 148 mg/dL (65-99) H 11/03/21 21:56 Calcium 9.1 mg/dL (8.5-10.1) 11/04/21 04:39 Corrected Calcium 10.3 mg/dL (8.5-10.1) H 11/04/21 04:39 Total Bilirubin 0.30 mg/dL (0.2-1.0) 11/04/21 04:39 AST 7 Units/L (15-37) L 11/04/21 04:39 ALT 12 Units/L (12-78) 11/04/21 04:39 Alkaline Phosphatase 90 Units/L (46-116) 11/04/21 04:39 Creatine Kinase 50 Units/L (26-192) 11/01/21 04:13 Troponin I High Sens 38.9 ng/L (4.0-60.0) 11/01/21 04:13 B-Natriuretic Peptide 822 pg/mL (0-79) H* 11/04/21 04:39 Total Protein 6.5 g/dL (6.4-8.2) 11/04/21 04:39 Albumin 2.5 g/dL (3.4-5.0) L 11/04/21 04:39 Globulin 4.0 g/dL (2.5-4.5) 11/04/21 04:39 Albumin/Globulin Ratio 0.6 Ratio (1.1-2.1) L 11/04/21 04:39 Specimen Type Catherized urine 11/01/21 10:18 Urine Color Yellow (YELLOW) 11/01/21 10:18 Urine Appearance Cloudy (CLEAR) 11/01/21 10:18 Urine pH 6.0 (5.0 - 8.0) 11/01/21 10:18 Ur Specific [place] 1.020 (1.000-1.030) 11/01/21 10:18 Urine Protein 4+ (NEGATIVE) 11/01/21 10:18 Urine Glucose (UA) Negative (NEGATIVE) 11/01/21 10:18 Urine Ketones Negative (NEGATIVE) 11/01/21 10:18 Urine Blood 3+ (NEGATIVE) 11/01/21 10:18 Urine Nitrite Negative (NEGATIVE) 11/01/21 10:18 Urine Bilirubin Negative (NEGATIVE) 11/01/21 10:18 Urine Urobilinogen Normal (NORMAL) 11/01/21 10:18 Ur Leukocyte Esterase 3+ (NEGATIVE) 11/01/21 10:18 Urine RBC 3-5 /HPF (0-3) A 11/01/21 10:18 Urine WBC 20-30 /HPF (0-5) A 11/01/21 10:18 Ur Squamous Epith Cells Rare /HPF (NEGATIVE) 11/01/21 10:18 Amorphous Sediment 1+ /HPF (NEGATIVE) 11/01/21 10:18 Urine Bacteria 1+ /HPF (NEGATIVE) 11/01/21 10:18 Urine Mucus Few /HPF (NEGATIVE) 11/01/21 10:18 Ur Culture Indicated? Yes/culture set up 11/01/21 10:18 SARS-CoV-2 (PCR) Negative (NEGATIVE) 10/31/21 17:21 SARS CoV-2 RNA Rapid LEIGH Cancelled 10/31/21 17:21 - Plan (1) Acute exacerbation of CHF (congestive heart failure) Status: Acute Qualifiers: Heart failure type: unspecified Plan: SUPPLEMENTAL OXYGEN, DUONEBS Q4H, PULMICORT NEBS BID, FUROSEMIDE 40MG IV DAILY, ZOSYN 3.375G IV TID, VANCOMYCIN 1.5G IV DAILY, HOME MEDS RESUMED (2) COPD exacerbation Status: Acute (3) Urinary tract infection Status: Acute Qualifiers: Urinary tract infection type: acute cystitis Hematuria presence: with hematuria Qualified Code(s): N30.01 - Acute cystitis with hematuria (4) SOB (shortness of breath) Status: Acute (5) AMS (altered mental status) Status: Resolved Qualifiers: Altered mental status type: transient alteration of awareness Qualified Code(s): R40.4 - Transient alteration of awareness
--- NOTE | 2021-11-04 08:46 | PCM.PROG ---
Progress Note - Progress Note for Day of Date of Exam: 11/03/21 - Subjective Subjective: IS CURRENTLY INPATIENT STATUS FOR TREATMENT OF ACUTE EXACERBATION OF CHF, COPD, UTI, SOB, AND AMS. LAB REPORTED THAT HER PRELIMINARY BLOOD CULTURES WERE POSITIVE. TODAY, SHE IS LYING IN BED WITH EYES CLOSED ON MORNING ROUNDS. SHE AWAKENS TO VERBAL STIMULI. SHE ANSWERS QUESTIONS AND FOLLOWS COMMANDS APPROPRIATELY. SHE DOES CONTINUE WITH COMPLAINTS OF SHORTNESS OF BREATH THIS MORNING, BUT DOES REPORT SLIGHT IMPROVEMENT SINCE YESTERDAY. ON EXAMINATION, HEART IS REGULAR IN RATE AND RHYTHM. BILATERAL LUNGS ARE NOTED WITH DIMINISHED LUNG SOUNDS THROUGHOUT. ABDOMEN IS ROUND, SOFT, AND NON-TENDER WITH NORMAL BOWEL SOUNDS NOTED IN ALL QUADRANTS. CARY CATHETER NOTED TO BEDSIDE DRAINAGE. LOWER EXTREMITIES NOTED WITH 1+ PITTING EDEMA. HER VITALS THIS MORNING ARE: 97.7-56-20-94%-140/65. SHE IS CURRENTLY UTILIZING OXYGEN VIA NASAL CANNULA AT 3 LPM. LABS WERE OBTAINED. WBC 6.5, RBC 2.94, HGB 9.3, HCT 28.0, PLT COUNT 257, SODIUM 142, POTASSIUM 3.7, CHLORIDE 105, CARBON DIOXIDE 32.7, BUN 34, CREATININE 2.19, GLUCOSE 132, CALCIUM 9.4, AST 7, AST 12, ALK PHOS 90, BNP 1150, TOTAL PROTEIN 6.2, ALBUMIN 2.4. URINE AND BLOOD CULTURES ARE PENDING. A CHEST XRAY WAS OBTAINED AND REVEALED: Patient is status post median sternotomy and CABG. The heart is enlarged. Pulmonary venous congestion is present and unchanged. Diffuse interstitial lung changes present and unchanged and likely represent interstitial edema although a background of chronic interstitial lung disease could be present. There is persistent increased density retrocardiac area of the left lower lobe which could be due to soft tissue attenuation from the patient's cardiomegaly, pleural effusion, consolidation, or atelectasis. Bony thorax is unremarkable. SHE IS CURRENTLY RECEIVING DUONEBS Q4H, PULMICORT NEBS BID, FUROSEMIDE 40MG IV DAILY, ZOSYN 3.375G IV TID, AND VANCOMYCIN 1.5G IV DAILY. HER HOME MEDICATIONS WERE ALSO RESUMED. WE WILL CONTINUE WITH CURRENT PLAN OF CARE TODAY. OTHERWISE, WE WILL FOLLOW-UP WITH AM LABS AND CONTINUE TO MONITOR. TIME SPENT ON CLINICAL ASSESSMENT, REVIWING LABS AND IMAGING, DECISION MAKING, AND DOCUMENTATION GREATER THAN 45 MINUTES. - Past Medical Family Social History Past Med/Fam/Surg Hx: No changes since H&P Allergies: Allergies Sulfa (Sulfonamide Antibiotics) [SULFA] Allergy (Verified 10/31/21 18:43) ciprofloxacin [From Cipro] Adverse Reaction (Verified 10/31/21 18:43) - Review of Systems ROS: No change since H&P - Vital Signs and I&O's Vital Signs: Temperature 98.6 F Pulse Rate [Bilateral Radial] 53 Pulse Rate 57 Respiratory Rate 20 Blood Pressure [Right Arm] 131/61 Blood Pressure 163/91 O2 Sat by Pulse Oximetry 96 Intake and Output: Intake & Output 11/01/21 11/02/21 11/03/21 11/04/21 11:59 11:59 11:59 11:59 Intake Total 560 / 560 798 / 798 510 / 510 1148 / 1148 Output Total 1750 / 1750 2370 / 2370 980 / 980 700 / 700 Balance -1190 / -1190 -1572 / -1572 -470 / -470 448 / 448 - Physical Exam Oriented: Person, Place Eyes: Normal Ear: Normal Nose: Normal Throat: Normal Respiratory: Diminished Cardiovascular: Normal, Edema (BLE 1+ PITTING EDEMA ) : Normal Auscultation: Bowel Sounds: Normal Palpation: Normal Tenderness: Normal Skin: Normal Musculoskeletal: Normal Psychiatric: Normal Mood Description: Calm Affect: Normal Speech Pattern: Clear, Appropriate - Laboratory and Diagnostics Result Diagrams: 11/04/21 04:39 11/04/21 04:39 Labs: 11/01/21 10:18 Urine,Clean Catch Urine Culture - Final Escherichia Coli Escherichia Coli#2 10/31/21 16:00 Blood Blood Culture - Final 10/31/21 15:44 Blood Blood Culture - Preliminary Laboratory WBC 6.9 X10^3/uL (3.6-10.0) 11/04/21 04:39 RBC 3.01 X10^6/uL (3.5-5.4) L 11/04/21 04:39 Hgb 9.3 g/dL (12.0-16.0) L 11/04/21 04:39 Hct 28.9 % (36.0-47.0) L 11/04/21 04:39 MCV 95.9 fL (80.0-100.0) 11/04/21 04:39 MCH 30.9 pg (27.0-34.0) 11/04/21 04:39 MCHC 32.2 g/dL (33.0-35.0) L 11/04/21 04:39 RDW 15.5 % (11.6-16.5) 11/04/21 04:39 Plt Count 274 X10^3/uL (150.0-450.0) 11/04/21 04:39 MPV 7.5 fL (7.4-11.0) 11/04/21 04:39 Neut % (Auto) 75.1 % (42.0-75.0) H 11/04/21 04:39 Lymph % (Auto) 11.7 % (21.0-51.0) L 11/04/21 04:39 [place] % (Auto) 4.8 % (0.0-13.0) 11/04/21 04:39 Eos % (Auto) 5.8 % (0.9-2.9) H 11/04/21 04:39 Baso % (Auto) 2.6 % (0.2-1.0) H 11/04/21 04:39 Neut # (Auto) 5.2 x10^3/uL (2.2-4.8) H 11/04/21 04:39 Lymph # (Auto) 0.8 X10^3/uL (1.3-2.9) L 11/04/21 04:39 [place]age # (Auto) 0.3 x10^3/uL (0.3-0.8) 11/04/21 04:39 Eos # (Auto) 0.4 x10^3/uL (0.0-0.2) H 11/04/21 04:39 Baso # (Auto) 0.2 X10^3/uL (0.0-0.1) H 11/04/21 04:39 Absolute Nucleated RBC 0.1 /100WBC 11/04/21 04:39 PT 15.9 SECONDS (11.8-14.3) 11/01/21 04:13 INR Target Range - 11/01/21 04:13 INR 1.32 (0.8-1.3) H 11/01/21 04:13 APTT 28.1 SECONDS (22.9-36.5) 11/01/21 04:13 PTT Comment - 11/01/21 04:13 Sample Site Rrad 11/01/21 09:35 ABG pH 7.370 (7.35-7.45) 11/01/21 09:35 ABG pCO2 61.0 mmHg (35.0-45.0) H* 11/01/21 09:35 ABG pO2 77.0 mmHg (80.0-100.0) L 11/01/21 09:35 ABG HCO3 35.3 mmol/L (22-26) H* 11/01/21 09:35 ABG O2 Saturation 95.0 % (90-100) 11/01/21 09:35 ABG Base Excess 8.0 mmol/L (-2.0-2.0) H 11/01/21 09:35 Kevin Test Pos 11/01/21 09:35 A-a Gradient 75.0 mmHg 11/01/21 09:35 FiO2 32.0 11/01/21 09:35 Blood Gas Comments Surinder well ms/eb 11/01/21 09:35 Sodium 143 mmol/L (136-145) 11/04/21 04:39 Corrected Sodium 144 mmol/L (136-145) 11/04/21 04:39 Potassium 3.8 mmol/L (3.5-5.1) 11/04/21 04:39 Chloride 105 mmol/L (98-107) 11/04/21 04:39 Carbon Dioxide 32.7 mmol/L (21-32) H 11/04/21 04:39 BUN 36 mg/dL (7-18) H 11/04/21 04:39 Creatinine 2.44 mg/dL (0.55-1.02) H 11/04/21 04:39 Est GFR (MDRD) Af Amer 26 (>60) L 11/04/21 04:39 Est GFR (MDRD) Non-Af 21 (>60) L 11/04/21 04:39 Glucose 126 mg/dL (65-99) H 11/04/21 04:39 POC Glucose (mg/dL) 148 mg/dL (65-99) H 11/03/21 21:56 Calcium 9.1 mg/dL (8.5-10.1) 11/04/21 04:39 Corrected Calcium 10.3 mg/dL (8.5-10.1) H 11/04/21 04:39 Total Bilirubin 0.30 mg/dL (0.2-1.0) 11/04/21 04:39 AST 7 Units/L (15-37) L 11/04/21 04:39 ALT 12 Units/L (12-78) 11/04/21 04:39 Alkaline Phosphatase 90 Units/L (46-116) 11/04/21 04:39 Creatine Kinase 50 Units/L (26-192) 11/01/21 04:13 Troponin I High Sens 38.9 ng/L (4.0-60.0) 11/01/21 04:13 B-Natriuretic Peptide 822 pg/mL (0-79) H* 11/04/21 04:39 Total Protein 6.5 g/dL (6.4-8.2) 11/04/21 04:39 Albumin 2.5 g/dL (3.4-5.0) L 11/04/21 04:39 Globulin 4.0 g/dL (2.5-4.5) 11/04/21 04:39 Albumin/Globulin Ratio 0.6 Ratio (1.1-2.1) L 11/04/21 04:39 Specimen Type Catherized urine 11/01/21 10:18 Urine Color Yellow (YELLOW) 11/01/21 10:18 Urine Appearance Cloudy (CLEAR) 11/01/21 10:18 Urine pH 6.0 (5.0 - 8.0) 11/01/21 10:18 Ur Specific [place] 1.020 (1.000-1.030) 11/01/21 10:18 Urine Protein 4+ (NEGATIVE) 11/01/21 10:18 Urine Glucose (UA) Negative (NEGATIVE) 11/01/21 10:18 Urine Ketones Negative (NEGATIVE) 11/01/21 10:18 Urine Blood 3+ (NEGATIVE) 11/01/21 10:18 Urine Nitrite Negative (NEGATIVE) 11/01/21 10:18 Urine Bilirubin Negative (NEGATIVE) 11/01/21 10:18 Urine Urobilinogen Normal (NORMAL) 11/01/21 10:18 Ur Leukocyte Esterase 3+ (NEGATIVE) 11/01/21 10:18 Urine RBC 3-5 /HPF (0-3) A 11/01/21 10:18 Urine WBC 20-30 /HPF (0-5) A 11/01/21 10:18 Ur Squamous Epith Cells Rare /HPF (NEGATIVE) 11/01/21 10:18 Amorphous Sediment 1+ /HPF (NEGATIVE) 11/01/21 10:18 Urine Bacteria 1+ /HPF (NEGATIVE) 11/01/21 10:18 Urine Mucus Few /HPF (NEGATIVE) 11/01/21 10:18 Ur Culture Indicated? Yes/culture set up 11/01/21 10:18 SARS-CoV-2 (PCR) Negative (NEGATIVE) 10/31/21 17:21 SARS CoV-2 RNA Rapid LEIGH Cancelled 10/31/21 17:21 - Plan (1) Acute exacerbation of CHF (congestive heart failure) Status: Acute Qualifiers: Heart failure type: unspecified Plan: SUPPLEMENTAL OXYGEN, DUONEBS Q4H, PULMICORT NEBS BID, FUROSEMIDE 40MG IV DAILY, ZOSYN 3.375G IV TID, VANCOMYCIN 1.5G IV DAILY, HOME MEDS RESUMED (2) COPD exacerbation Status: Acute (3) Urinary tract infection Status: Acute Qualifiers: Urinary tract infection type: acute cystitis Hematuria presence: with hematuria Qualified Code(s): N30.01 - Acute cystitis with hematuria (4) SOB (shortness of breath) Status: Acute (5) AMS (altered mental status) Status: Resolved Qualifiers: Altered mental status type: transient alteration of awareness Qualified Code(s): R40.4 - Transient alteration of awareness
[2021-11-04] MEDS: ASPIRIN EC 81 MG PO SCH (09:48)
[2021-11-04] MEDS: NORVASC TAB 5 MG PO SCH ×2 (09:49→21:27)
[2021-11-04] MEDS: FOLIC ACID TAB 1 MG PO SCH (09:49)
[2021-11-04] MEDS: COREG TAB 12.5 MG PO SCH ×2 (09:49→21:35)
[2021-11-04] MEDS: KEPPRA TAB 500 MG PO SCH ×2 (09:49→21:26)
[2021-11-04] MEDS: COLACE CAP 100 MG PO SCH ×2 (09:50→21:26)
[2021-11-04] MEDS: ZAROXOLYN PO SCH (09:50)
[2021-11-04] MEDS: APRESOLINE TAB 25 MG PO SCH ×2 (09:50→21:26)
[2021-11-04] MEDS: SYNTHROID 25 mcg TAB PO SCH (09:51)
[2021-11-04] MEDS: EFFEXOR XR 75 MG CAP 24-HR PO SCH (09:51)
[2021-11-04] MEDS: HEMOCYTE-PLUS PO SCH (09:51)
[2021-11-04] MEDS: XANAX PO SCH (09:51)
[2021-11-04] MEDS: CORDARONE TAB 200 MG PO SCH (09:58)
[2021-11-04] MEDS: ISOSORBIDE DINITRATE PO SCH ×2 (09:58→21:26)
[2021-11-04] MEDS: LASIX IVP SCH (09:59)
[2021-11-04] MEDS: PLAVIX PO SCH (10:03)
[2021-11-04] MEDS: MILK OF MAGNESIA PO SCH (10:03)
[2021-11-04] MEDS: MIRALAX POWDER (1 DOSE 17 G) PO SCH (10:03)
[2021-11-04] MEDS: PROCRIT or EPOGEN VIAL 10,000 UNITS SC PRN (10:04)
[2021-11-04] MEDS: VITAMIN D3 25 mcg (1,000 UNITS) PO SCH (10:04)
[2021-11-04 10:53] LABS: CREATININE 2.54 mg/dL (0.55-1.02)
[2021-11-04 10:58] LABS: VANCOMYCIN,TROUGH 22.6 ug/mL (15-20)
[2021-11-04] MEDS: VANCOMYCIN IV *PREMIX 1.5 G/300 ML BAG 1.5 G/300 ML PIGGYBACK IV SCH (13:12)
[2021-11-04] MEDS: SNACK - Diabetic Appropriate PO SCH (21:00)
[2021-11-04] MEDS: LIPITOR TAB 40 MG PO SCH (21:25)
[2021-11-04] MEDS: VISTARIL PO PRN (21:25)
[2021-11-04] MEDS: LEVEMIR SC SCH (21:27)
[2021-11-05] MEDS: DUONEB 0.5 MG/3 MG (3 mL) NEB SCH ×6 (00:30→21:21)
[2021-11-05 04:50] LABS: BASOPHILS # (AUTO) 0.1 X10^3/uL (0.0-0.1); BASOPHILS % (AUTO) 0.8 % (0.2-1.0); EOSINOPHILS # (AUTO) 0.4 x10^3/uL (0.0-0.2); EOSINOPHILS % (AUTO) 5.7 % (0.9-2.9); HEMATOCRIT 28.6 % (36.0-47.0); HEMOGLOBIN 9.5 g/dL (12.0-16.0); LYMPHOCYTES # (AUTO) 1.1 X10^3/uL (1.3-2.9); MEAN CORPUSCULAR HEMOGLOBIN 31.7 pg (27.0-34.0); MEAN CORPUSCULAR HGB CONC 33.2 g/dL (33.0-35.0); MEAN CORPUSCULAR VOLUME 95.5 fL (80.0-100.0); MEAN PLATELET VOLUME 7.5 fL (7.4-11.0); MONOCYTES # (AUTO) 0.6 x10^3/uL (0.3-0.8); MONOCYTES % (AUTO) 7.9 % (0.0-13.0); NEUTROPHILS # (AUTO) 4.9 x10^3/uL (2.2-4.8); NEUTROPHILS % (AUTO) 69.6 % (42.0-75.0); RED BLOOD COUNT 2.99 X10^6/uL (3.5-5.4); RED CELL DISTRIBUTION WIDTH 15.4 % (11.6-16.5)
[2021-11-05 04:57] LABS: ALBUMIN 2.5 g/dL (3.4-5.0); CARBON DIOXIDE 33.1 mmol/L (21-32); COR CA(FOR HYPOALB) 10.2 mg/dL (8.5-10.1); CREATININE 2.6 mg/dL (0.55-1.02); TOTAL PROTEIN 6.6 g/dL (6.4-8.2)
[2021-11-05] MEDS: ZOSYN VIAL 3.375 GRAMS 3.375 G in NS 100 ML IV 100 ML IV SCH (05:29)
--- NOTE | 2021-11-05 06:01 | RAD ---
HISTORYchf copd positive blood culturesSTUDYCHEST, 1 [id number] AND TUBES: NoneHEART/ PULMONARY VASCULATURE: Stable postop changes with cardiomegaly and pulmonary vasculature congestionLUNGS/ PLEURA: Diffuse increased interstitial and airspace opacities, likely reflecting edema, unchanged. No sizable pleural effusion. No pneumothorax.IMPRESSIONNo significant changeElectronically signed by: Dre Rose (Nov 05, 2021 06:00:19)
[2021-11-05] MEDS ORDERED: PHARMACY COMMENT IV NR (08:30)
[2021-11-05] MEDS: PULMICORT NEB TX 0.5 MG NEB SCH ×2 (08:32→21:21)
[2021-11-05] MEDS: VITAMIN D3 25 mcg (1,000 UNITS) PO SCH (08:39)
[2021-11-05] MEDS: XANAX PO SCH (08:39)
[2021-11-05] MEDS: ISOSORBIDE DINITRATE PO SCH ×2 (08:39→20:28)
[2021-11-05] MEDS: APRESOLINE TAB 25 MG PO SCH ×2 (08:40→20:29)
[2021-11-05] MEDS: KEPPRA TAB 500 MG PO SCH ×2 (08:40→20:27)
[2021-11-05] MEDS: SYNTHROID 25 mcg TAB PO SCH (08:40)
[2021-11-05] MEDS: ZAROXOLYN PO SCH (08:40)
[2021-11-05] MEDS: PLAVIX PO SCH (08:41)
[2021-11-05] MEDS: FOLIC ACID TAB 1 MG PO SCH (08:41)
[2021-11-05] MEDS: ASPIRIN EC 81 MG PO SCH (08:41)
[2021-11-05] MEDS: NORVASC TAB 5 MG PO SCH ×2 (08:41→20:27)
[2021-11-05] MEDS: CORDARONE TAB 200 MG PO SCH (08:41)
[2021-11-05] MEDS: COREG TAB 12.5 MG PO SCH ×2 (08:42→20:30)
[2021-11-05] MEDS: HEMOCYTE-PLUS PO SCH (08:42)
[2021-11-05] MEDS: MILK OF MAGNESIA PO SCH (08:42)
[2021-11-05] MEDS: COLACE CAP 100 MG PO SCH ×2 (08:42→20:29)
[2021-11-05] MEDS: LASIX IVP SCH (08:42)
[2021-11-05] MEDS: EFFEXOR XR 75 MG CAP 24-HR PO SCH (08:42)
[2021-11-05] MEDS: MIRALAX POWDER (1 DOSE 17 G) PO SCH (08:43)
[2021-11-05] MEDS: ROCEPHIN VIAL 1 GRAM 1 G in NS 100 ML IV 100 ML IV SCH (10:30)
[2021-11-05 10:31] LABS: CREATININE 2.67 mg/dL (0.55-1.02)
--- NOTE | 2021-11-05 18:16 | PCM.PROG ---
Progress Note Progress Note for Day of Date of Exam: 11/05/21 Subjective Subjective: IS CURRENTLY INPATIENT STATUS FOR TREATMENT OF ACUTE EXACERBATION OF CHF, COPD, UTI, SOB, AND AMS. LAB REPORTED THAT HER PRELIMINARY BLOOD CULTURES WERE POSITIVE. TODAY, SHE IS LYING IN BED WITH EYES CLOSED ON MORNING ROUNDS. SHE AWAKENS TO VERBAL STIMULI. SHE ANSWERS QUESTIONS AND FOLLOWS COMMANDS APPROPRIATELY. SHE DOES CONTINUE WITH COMPLAINTS OF SHORTNESS OF BREATH THIS MORNING, BUT DOES REPORT SLIGHT IMPROVEMENT SINCE YESTERDAY. ON EXAMINATION, HEART IS REGULAR IN RATE AND RHYTHM. BILATERAL LUNGS ARE NOTED WITH DIMINISHED LUNG SOUNDS THROUGHOUT. ABDOMEN IS ROUND, SOFT, AND NON-TENDER WITH NORMAL BOWEL SOUNDS NOTED IN ALL QUADRANTS. CARY CATHETER NOTED TO BEDSIDE DRAINAGE. LOWER EXTREMITIES NOTED WITH 1+ PITTING EDEMA. HER VITALS THIS MORNING ARE: 97.7-56-20-94%-140/65. SHE IS CURRENTLY UTILIZING OXYGEN VIA NASAL CANNULA AT 3 LPM. LABS WERE OBTAINED. WBC 6.5, RBC 2.94, HGB 9.3, HCT 28.0, PLT COUNT 257, SODIUM 142, POTASSIUM 3.7, CHLORIDE 105, CARBON DIOXIDE 32.7, BUN 34, CREATININE 2.19, GLUCOSE 132, CALCIUM 9.4, AST 7, AST 12, ALK PHOS 90, BNP 1150, TOTAL PROTEIN 6.2, ALBUMIN 2.4. URINE AND BLOOD CULTURES ARE PENDING. A CHEST XRAY WAS OBTAINED AND REVEALED: Patient is status post median sternotomy and CABG. The heart is enlarged. Pulmonary venous congestion is present and unchanged. Diffuse interstitial lung changes present and unchanged and likely represent interstitial edema although a background of chronic interstitial lung disease could be present. There is persistent increased density retrocardiac area of the left lower lobe which could be due to soft tissue attenuation from the patient's cardiomegaly, pleural effusion, consolidation, or atelectasis. Bony thorax is unremarkable. SHE IS CURRENTLY RECEIVING DUONEBS Q4H, PULMICORT NEBS BID, FUROSEMIDE 40MG IV DAILY, ZOSYN 3.375G IV TID, AND VANCOMYCIN 1.5G IV DAILY. HER HOME MEDICATIONS WERE ALSO RESUMED. WE WILL CONTINUE WITH CURRENT PLAN OF CARE TODAY. OTHERWISE, WE WILL FOLLOW-UP WITH AM LABS AND CONTINUE TO MONITOR. TIME SPENT ON CLINICAL ASSESSMENT, REVIWING LABS AND IMAGING, DECISION MAKING, AND DOCUMENTATION GREATER THAN 45 MINUTES. Sunday, 05 November 2021 Ms. Fang Estrada feeling better this morning she reports. She reports she is ready to go home as she had no acute problems last night. Her vital signs are stable today and her labs do not look bad overall. Her urine culture grew out E. coli. She has been receiving Zosyn for has a ARMANDO less than 16 however the AR C of Rocephin is less than 1. I DC'd her Zosyn and started her on Rocephin instead at 1 g IV daily. No other changes to her treatment at this time. Past Medical Family Social History Past Med/Fam/Surg Hx: No changes since H&P Allergies: Allergies Sulfa (Sulfonamide Antibiotics) [SULFA] Allergy (Verified 10/31/21 18:43) ciprofloxacin [From Cipro] Adverse Reaction (Verified 10/31/21 18:43) Review of Systems ROS: No change since H&P Vital Signs and I&O's Vital Signs: Temperature 97.9 F Pulse Rate [Bilateral Radial] 57 Pulse Rate 67 Respiratory Rate 20 Blood Pressure [Left Arm] 159/71 Blood Pressure [Right Arm] 145/65 Blood Pressure 163/91 O2 Sat by Pulse Oximetry 96 Intake and Output: Intake & Output 11/03/21 11/04/21 11/05/21 11/06/21 11:59 11:59 11:59 11:59 Intake Total 510 / 510 1148 / 1148 1856 / 1856 760 / 760 Output Total 980 / 980 700 / 700 1900 / 1900 700 / 700 Balance -470 / -470 448 / 448 -44 / -44 60 / 60 Physical Exam Oriented: Person and Place Eyes: Normal Ear: Normal Nose: Normal Throat: Normal Respiratory: Diminished Cardiovascular: Normal and Edema (BLE 1+ PITTING EDEMA ) : Normal Auscultation: Bowel Sounds: Normal Tenderness: Normal Skin: Normal Musculoskeletal: Normal Psychiatric: Normal Mood Description: Calm Affect: Normal Speech Pattern: Clear and Appropriate Laboratory and Diagnostics Result Diagrams: 11/05/21 04:17 11/05/21 10:00 Labs: 11/03/21 15:22 Blood Blood Culture - Preliminary 11/03/21 15:10 Blood Blood Culture - Preliminary 11/01/21 10:18 Urine,Clean Catch Urine Culture - Final Escherichia Coli Escherichia Coli#2 10/31/21 16:00 Blood Blood Culture - Final 10/31/21 15:44 Blood Blood Culture - Preliminary Laboratory WBC 7.0 X10^3/uL (3.6-10.0) 11/05/21 04:17 RBC 2.99 X10^6/uL (3.5-5.4) L 11/05/21 04:17 Hgb 9.5 g/dL (12.0-16.0) L 11/05/21 04:17 Hct 28.6 % (36.0-47.0) L 11/05/21 04:17 MCV 95.5 fL (80.0-100.0) 11/05/21 04:17 MCH 31.7 pg (27.0-34.0) 11/05/21 04:17 MCHC 33.2 g/dL (33.0-35.0) 11/05/21 04:17 RDW 15.4 % (11.6-16.5) 11/05/21 04:17 Plt Count 269 X10^3/uL (150.0-450.0) 11/05/21 04:17 MPV 7.5 fL (7.4-11.0) 11/05/21 04:17 Neut % (Auto) 69.6 % (42.0-75.0) 11/05/21 04:17 Lymph % (Auto) 16.0 % (21.0-51.0) L 11/05/21 04:17 [place] % (Auto) 7.9 % (0.0-13.0) 11/05/21 04:17 Eos % (Auto) 5.7 % (0.9-2.9) H 11/05/21 04:17 Baso % (Auto) 0.8 % (0.2-1.0) 11/05/21 04:17 Neut # (Auto) 4.9 x10^3/uL (2.2-4.8) H 11/05/21 04:17 Lymph # (Auto) 1.1 X10^3/uL (1.3-2.9) L 11/05/21 04:17 [place] # (Auto) 0.6 x10^3/uL (0.3-0.8) 11/05/21 04:17 Eos # (Auto) 0.4 x10^3/uL (0.0-0.2) H 11/05/21 04:17 Baso # (Auto) 0.1 X10^3/uL (0.0-0.1) 11/05/21 04:17 Absolute Nucleated RBC 0.0 /100WBC 11/05/21 04:17 PT 15.9 SECONDS (11.8-14.3) 11/01/21 04:13 INR Target Range - 11/01/21 04:13 INR 1.32 (0.8-1.3) H 11/01/21 04:13 APTT 28.1 SECONDS (22.9-36.5) 11/01/21 04:13 PTT Comment - 11/01/21 04:13 Sample Site Rrad 11/01/21 09:35 ABG pH 7.370 (7.35-7.45) 11/01/21 09:35 ABG pCO2 61.0 mmHg (35.0-45.0) H* 11/01/21 09:35 ABG pO2 77.0 mmHg (80.0-100.0) L 11/01/21 09:35 ABG HCO3 35.3 mmol/L (22-26) H* 11/01/21 09:35 ABG O2 Saturation 95.0 % (90-100) 11/01/21 09:35 ABG Base Excess 8.0 mmol/L (-2.0-2.0) H 11/01/21 09:35 Kevin Test Pos 11/01/21 09:35 A-a Gradient 75.0 mmHg 11/01/21 09:35 FiO2 32.0 11/01/21 09:35 Blood Gas Comments Surinder well ms/eb 11/01/21 09:35 Sodium 141 mmol/L (136-145) 11/05/21 04:17 Corrected Sodium 143 mmol/L (136-145) 11/05/21 04:17 Potassium 3.9 mmol/L (3.5-5.1) 11/05/21 04:17 Chloride 105 mmol/L (98-107) 11/05/21 04:17 Carbon Dioxide 33.1 mmol/L (21-32) H 11/05/21 04:17 BUN 38 mg/dL (7-18) H 11/05/21 04:17 Creatinine 2.67 mg/dL (0.55-1.02) H 11/05/21 10:00 Est GFR (MDRD) Af Amer 24 (>60) L 11/05/21 04:17 Est GFR (MDRD) Non-Af 20 (>60) L 11/05/21 04:17 Glucose 177 mg/dL (65-99) H 11/05/21 04:17 POC Glucose (mg/dL) 165 mg/dL (65-99) H 11/05/21 16:46 Calcium 9.0 mg/dL (8.5-10.1) 11/05/21 04:17 Corrected Calcium 10.2 mg/dL (8.5-10.1) H 11/05/21 04:17 Total Bilirubin 0.30 mg/dL (0.2-1.0) 11/05/21 04:17 AST 7 Units/L (15-37) L 11/05/21 04:17 ALT 13 Units/L (12-78) 11/05/21 04:17 Alkaline Phosphatase 86 Units/L (46-116) 11/05/21 04:17 Creatine Kinase 50 Units/L (26-192) 11/01/21 04:13 Troponin I High Sens 38.9 ng/L (4.0-60.0) 11/01/21 04:13 B-Natriuretic Peptide 972 pg/mL (0-79) H* 11/05/21 04:17 Total Protein 6.6 g/dL (6.4-8.2) 11/05/21 04:17 Albumin 2.5 g/dL (3.4-5.0) L 11/05/21 04:17 Globulin 4.1 g/dL (2.5-4.5) 11/05/21 04:17 Albumin/Globulin Ratio 0.6 Ratio (1.1-2.1) L 11/05/21 04:17 Specimen Type Catherized urine 11/01/21 10:18 Urine Color Yellow (YELLOW) 11/01/21 10:18 Urine Appearance Cloudy (CLEAR) 11/01/21 10:18 Urine pH 6.0 (5.0 - 8.0) 11/01/21 10:18 Ur Specific [place] 1.020 (1.000-1.030) 11/01/21 10:18 Urine Protein 4+ (NEGATIVE) 11/01/21 10:18 Urine Glucose (UA) Negative (NEGATIVE) 11/01/21 10:18 Urine Ketones Negative (NEGATIVE) 11/01/21 10:18 Urine Blood 3+ (NEGATIVE) 11/01/21 10:18 Urine Nitrite Negative (NEGATIVE) 11/01/21 10:18 Urine Bilirubin Negative (NEGATIVE) 11/01/21 10:18 Urine Urobilinogen Normal (NORMAL) 11/01/21 10:18 Ur Leukocyte Esterase 3+ (NEGATIVE) 11/01/21 10:18 Urine RBC 3-5 /HPF (0-3) A 11/01/21 10:18 Urine WBC 20-30 /HPF (0-5) A 11/01/21 10:18 Ur Squamous Epith Cells Rare /HPF (NEGATIVE) 11/01/21 10:18 Amorphous Sediment 1+ /HPF (NEGATIVE) 11/01/21 10:18 Urine Bacteria 1+ /HPF (NEGATIVE) 11/01/21 10:18 Urine Mucus Few /HPF (NEGATIVE) 11/01/21 10:18 Ur Culture Indicated? Yes/culture set up 11/01/21 10:18 Vancomycin Trough 17.0 ug/mL (15-20) 11/05/21 10:00 SARS-CoV-2 (PCR) Negative (NEGATIVE) 10/31/21 17:21 SARS CoV-2 RNA Rapid LEIGH Cancelled 10/31/21 17:21 Plan (1) Acute exacerbation of CHF (congestive heart failure): Status: Acute Qualifiers: Heart failure type: unspecified Plan: SUPPLEMENTAL OXYGEN, DUONEBS Q4H, PULMICORT NEBS BID, FUROSEMIDE 40MG IV DAILY, ZOSYN 3.375G IV TID, VANCOMYCIN 1.5G IV DAILY, HOME MEDS RESUMED (2) COPD exacerbation: Status: Acute (3) Urinary tract infection: Status: Acute Qualifiers: Hematuria presence: with hematuria Urinary tract infection type: acute cystitis Qualified Code(s): N30.01 - Acute cystitis with hematuria (4) SOB (shortness of breath): Status: Acute (5) AMS (altered mental status): Status: Resolved Qualifiers: Altered mental status type: transient alteration of awareness Qualified Code(s): R40.4 - Transient alteration of awareness
[2021-11-05] MEDS: LIPITOR TAB 40 MG PO SCH (20:30)
[2021-11-05] MEDS: LEVEMIR SC SCH (20:31)
[2021-11-05] MEDS: SNACK - Diabetic Appropriate PO SCH (20:35)
[2021-11-06] MEDS: DUONEB 0.5 MG/3 MG (3 mL) NEB SCH ×6 (00:15→21:23)
[2021-11-06 05:23] LABS: BASOPHILS # (AUTO) 0.1 X10^3/uL (0.0-0.1); BASOPHILS % (AUTO) 1.1 % (0.2-1.0); EOSINOPHILS # (AUTO) 0.5 x10^3/uL (0.0-0.2); EOSINOPHILS % (AUTO) 6.3 % (0.9-2.9); HEMATOCRIT 29.4 % (36.0-47.0); HEMOGLOBIN 9.7 g/dL (12.0-16.0); LYMPHOCYTES # (AUTO) 1.4 X10^3/uL (1.3-2.9); LYMPHOCYTES % (AUTO) 19.6 % (21.0-51.0); MEAN CORPUSCULAR HEMOGLOBIN 31.5 pg (27.0-34.0); MEAN CORPUSCULAR HGB CONC 32.9 g/dL (33.0-35.0); MEAN CORPUSCULAR VOLUME 95.6 fL (80.0-100.0); MEAN PLATELET VOLUME 7.6 fL (7.4-11.0); MONOCYTES # (AUTO) 0.5 x10^3/uL (0.3-0.8); MONOCYTES % (AUTO) 7.6 % (0.0-13.0); NEUTROPHILS # (AUTO) 4.7 x10^3/uL (2.2-4.8); NEUTROPHILS % (AUTO) 65.4 % (42.0-75.0); RED BLOOD COUNT 3.07 X10^6/uL (3.5-5.4); RED CELL DISTRIBUTION WIDTH 15.6 % (11.6-16.5); WHITE BLOOD COUNT 7.1 X10^3/uL (3.6-10.0)
[2021-11-06 05:41] LABS: ALBUMIN 2.5 g/dL (3.4-5.0); CALCIUM 9.3 mg/dL (8.5-10.1); CARBON DIOXIDE 32.5 mmol/L (21-32); COR CA(FOR HYPOALB) 10.5 mg/dL (8.5-10.1); CREATININE 2.58 mg/dL (0.55-1.02); TOTAL PROTEIN 6.7 g/dL (6.4-8.2)
[2021-11-06 08:27] LABS: CREATININE 2.64 mg/dL (0.55-1.02); VANCOMYCIN,TROUGH 14.3 ug/mL (15-20)
[2021-11-06] MEDS: PULMICORT NEB TX 0.5 MG NEB SCH ×2 (08:46→21:23)
[2021-11-06] MEDS: PLAVIX PO SCH (08:58)
[2021-11-06] MEDS: SYNTHROID 25 mcg TAB PO SCH (08:58)
[2021-11-06] MEDS: NORVASC TAB 5 MG PO SCH ×2 (08:58→20:34)
[2021-11-06] MEDS: COLACE CAP 100 MG PO SCH ×2 (08:58→20:35)
[2021-11-06] MEDS: ASPIRIN EC 81 MG PO SCH (08:58)
[2021-11-06] MEDS: ISOSORBIDE DINITRATE PO SCH ×2 (08:58→20:34)
[2021-11-06] MEDS: VITAMIN D3 25 mcg (1,000 UNITS) PO SCH (08:59)
[2021-11-06] MEDS: KEPPRA TAB 500 MG PO SCH ×2 (08:59→20:34)
[2021-11-06] MEDS: ZAROXOLYN PO SCH (08:59)
[2021-11-06] MEDS: FOLIC ACID TAB 1 MG PO SCH (08:59)
[2021-11-06] MEDS: CORDARONE TAB 200 MG PO SCH (09:00)
[2021-11-06] MEDS: APRESOLINE TAB 25 MG PO SCH ×2 (09:00→20:34)
[2021-11-06] MEDS: COREG TAB 12.5 MG PO SCH ×2 (09:00→20:34)
[2021-11-06] MEDS: XANAX PO SCH (09:00)
[2021-11-06] MEDS: ROCEPHIN VIAL 1 GRAM 1 G in NS 100 ML IV 100 ML IV SCH (09:00)
[2021-11-06] MEDS: EFFEXOR XR 75 MG CAP 24-HR PO SCH (09:00)
[2021-11-06] MEDS: HEMOCYTE-PLUS PO SCH (09:00)
[2021-11-06] MEDS: MILK OF MAGNESIA PO SCH (09:01)
[2021-11-06] MEDS: MIRALAX POWDER (1 DOSE 17 G) PO SCH (09:01)
[2021-11-06] MEDS: LASIX IVP SCH (09:01)
[2021-11-06] MEDS ORDERED: NS 250 ML IV 250 ML IV ONE (12:08)
[2021-11-06] MEDS ORDERED: VANCOMYCIN IV *PREMIX 1.25 G/250 ML BAG 1.25 G/250 ML PIGGYBACK IV ONE (13:00)
--- NOTE | 2021-11-06 17:04 | PCM.PROG ---
Progress Note Progress Note for Day of Date of Exam: 11/06/21 Subjective Subjective: IS CURRENTLY INPATIENT STATUS FOR TREATMENT OF ACUTE EXACERBATION OF CHF, COPD, UTI, SOB, AND AMS. LAB REPORTED THAT HER PRELIMINARY BLOOD CULTURES WERE POSITIVE. TODAY, SHE IS LYING IN BED WITH EYES CLOSED ON MORNING ROUNDS. SHE AWAKENS TO VERBAL STIMULI. SHE ANSWERS QUESTIONS AND FOLLOWS COMMANDS APPROPRIATELY. SHE DOES CONTINUE WITH COMPLAINTS OF SHORTNESS OF BREATH THIS MORNING, BUT DOES REPORT SLIGHT IMPROVEMENT SINCE YESTERDAY. ON EXAMINATION, HEART IS REGULAR IN RATE AND RHYTHM. BILATERAL LUNGS ARE NOTED WITH DIMINISHED LUNG SOUNDS THROUGHOUT. ABDOMEN IS ROUND, SOFT, AND NON-TENDER WITH NORMAL BOWEL SOUNDS NOTED IN ALL QUADRANTS. CARY CATHETER NOTED TO BEDSIDE DRAINAGE. LOWER EXTREMITIES NOTED WITH 1+ PITTING EDEMA. HER VITALS THIS MORNING ARE: 97.7-56-20-94%-140/65. SHE IS CURRENTLY UTILIZING OXYGEN VIA NASAL CANNULA AT 3 LPM. LABS WERE OBTAINED. WBC 6.5, RBC 2.94, HGB 9.3, HCT 28.0, PLT COUNT 257, SODIUM 142, POTASSIUM 3.7, CHLORIDE 105, CARBON DIOXIDE 32.7, BUN 34, CREATININE 2.19, GLUCOSE 132, CALCIUM 9.4, AST 7, AST 12, ALK PHOS 90, BNP 1150, TOTAL PROTEIN 6.2, ALBUMIN 2.4. URINE AND BLOOD CULTURES ARE PENDING. A CHEST XRAY WAS OBTAINED AND REVEALED: Patient is status post median sternotomy and CABG. The heart is enlarged. Pulmonary venous congestion is present and unchanged. Diffuse interstitial lung changes present and unchanged and likely represent interstitial edema although a background of chronic interstitial lung disease could be present. There is persistent increased density retrocardiac area of the left lower lobe which could be due to soft tissue attenuation from the patient's cardiomegaly, pleural effusion, consolidation, or atelectasis. Bony thorax is unremarkable. SHE IS CURRENTLY RECEIVING DUONEBS Q4H, PULMICORT NEBS BID, FUROSEMIDE 40MG IV DAILY, ZOSYN 3.375G IV TID, AND VANCOMYCIN 1.5G IV DAILY. HER HOME MEDICATIONS WERE ALSO RESUMED. WE WILL CONTINUE WITH CURRENT PLAN OF CARE TODAY. OTHERWISE, WE WILL FOLLOW-UP WITH AM LABS AND CONTINUE TO MONITOR. TIME SPENT ON CLINICAL ASSESSMENT, REVIWING LABS AND IMAGING, DECISION MAKING, AND DOCUMENTATION GREATER THAN 45 MINUTES. Sunday, 05 November 2021 Ms. Fang Estrada feeling better this morning she reports. She reports she is ready to go home as she had no acute problems last night. Her vital signs are stable today and her labs do not look bad overall. Her urine culture grew out E. coli. She has been receiving Zosyn for has a ARMANDO less than 16 however the AR C of Rocephin is less than 1. I DC'd her Zosyn and started her on Rocephin instead at 1 g IV daily. No other changes to her treatment at this time. Sunday, 06 November 2021 Patient is alert and awake this morning. She had no major problems yesterday or last night. She reports she is still feeling better and is still ready to go home. There is been no significant change in her lab since yesterday. Her vital signs remained stable she is afebrile and her O2 sat is 97% on 3 L nasal cannula. We will continue current treatment with no changes today. We plan on rechecking CBC, CMP, BNP and chest x-ray in the morning. Past Medical Family Social History Past Med/Fam/Surg Hx: No changes since H&P Allergies: Allergies Sulfa (Sulfonamide Antibiotics) [SULFA] Allergy (Verified 10/31/21 18:43) ciprofloxacin [From Cipro] Adverse Reaction (Verified 10/31/21 18:43) Review of Systems ROS: No change since H&P Vital Signs and I&O's Vital Signs: Temperature 97.8 F Pulse Rate [Bilateral Radial] 58 Pulse Rate 73 Respiratory Rate 18 Blood Pressure [Left Arm] 145/65 Blood Pressure [Right Arm] 145/65 Blood Pressure 163/91 O2 Sat by Pulse Oximetry 97 Intake and Output: Intake & Output 11/04/21 11/05/21 11/06/21 11/07/21 11:59 11:59 11:59 11:59 Intake Total 1148 / 1148 1856 / 1856 1770 / 1770 400 / 400 Output Total 700 / 700 1900 / 1900 2099 / 2099 Balance 448 / 448 -44 / -44 -330 / -330 400 / 400 Physical Exam Oriented: Person and Place Eyes: Normal Ear: Normal Nose: Normal Throat: Normal Respiratory: Diminished Cardiovascular: Normal and Edema (BLE 1+ PITTING EDEMA ) : Normal Auscultation: Bowel Sounds: Normal Tenderness: Normal Skin: Normal Musculoskeletal: Normal Psychiatric: Normal Mood Description: Calm Affect: Normal Speech Pattern: Clear and Appropriate Laboratory and Diagnostics Result Diagrams: 11/06/21 04:15 11/06/21 08:00 Labs: 10/31/21 15:44 Blood Blood Culture - Final 11/03/21 15:22 Blood Blood Culture - Preliminary 11/03/21 15:10 Blood Blood Culture - Preliminary 11/01/21 10:18 Urine,Clean Catch Urine Culture - Final Escherichia Coli Escherichia Coli#2 10/31/21 16:00 Blood Blood Culture - Final Laboratory WBC 7.1 X10^3/uL (3.6-10.0) 11/06/21 04:15 RBC 3.07 X10^6/uL (3.5-5.4) L 11/06/21 04:15 Hgb 9.7 g/dL (12.0-16.0) L 11/06/21 04:15 Hct 29.4 % (36.0-47.0) L 11/06/21 04:15 MCV 95.6 fL (80.0-100.0) 11/06/21 04:15 MCH 31.5 pg (27.0-34.0) 11/06/21 04:15 MCHC 32.9 g/dL (33.0-35.0) L 11/06/21 04:15 RDW 15.6 % (11.6-16.5) 11/06/21 04:15 Plt Count 271 X10^3/uL (150.0-450.0) 11/06/21 04:15 MPV 7.6 fL (7.4-11.0) 11/06/21 04:15 Neut % (Auto) 65.4 % (42.0-75.0) 11/06/21 04:15 Lymph % (Auto) 19.6 % (21.0-51.0) L 11/06/21 04:15 [place] % (Auto) 7.6 % (0.0-13.0) 11/06/21 04:15 Eos % (Auto) 6.3 % (0.9-2.9) H 11/06/21 04:15 Baso % (Auto) 1.1 % (0.2-1.0) H 11/06/21 04:15 Neut # (Auto) 4.7 x10^3/uL (2.2-4.8) 11/06/21 04:15 Lymph # (Auto) 1.4 X10^3/uL (1.3-2.9) 11/06/21 04:15 [place] # (Auto) 0.5 x10^3/uL (0.3-0.8) 11/06/21 04:15 Eos # (Auto) 0.5 x10^3/uL (0.0-0.2) H 11/06/21 04:15 Baso # (Auto) 0.1 X10^3/uL (0.0-0.1) 11/06/21 04:15 Absolute Nucleated RBC 0.1 /100WBC 11/06/21 04:15 PT 15.9 SECONDS (11.8-14.3) 11/01/21 04:13 INR Target Range - 11/01/21 04:13 INR 1.32 (0.8-1.3) H 11/01/21 04:13 APTT 28.1 SECONDS (22.9-36.5) 11/01/21 04:13 PTT Comment - 11/01/21 04:13 Sample Site Rrad 11/01/21 09:35 ABG pH 7.370 (7.35-7.45) 11/01/21 09:35 ABG pCO2 61.0 mmHg (35.0-45.0) H* 11/01/21 09:35 ABG pO2 77.0 mmHg (80.0-100.0) L 11/01/21 09:35 ABG HCO3 35.3 mmol/L (22-26) H* 11/01/21 09:35 ABG O2 Saturation 95.0 % (90-100) 11/01/21 09:35 ABG Base Excess 8.0 mmol/L (-2.0-2.0) H 11/01/21 09:35 Kevin Test Pos 11/01/21 09:35 A-a Gradient 75.0 mmHg 11/01/21 09:35 FiO2 32.0 11/01/21 09:35 Blood Gas Comments Surinder well ms/eb 11/01/21 09:35 Sodium 143 mmol/L (136-145) 11/06/21 04:15 Corrected Sodium 144 mmol/L (136-145) 11/06/21 04:15 Potassium 3.6 mmol/L (3.5-5.1) 11/06/21 04:15 Chloride 106 mmol/L (98-107) 11/06/21 04:15 Carbon Dioxide 32.5 mmol/L (21-32) H 11/06/21 04:15 BUN 38 mg/dL (7-18) H 11/06/21 04:15 Creatinine 2.64 mg/dL (0.55-1.02) H 11/06/21 08:00 Est GFR (MDRD) Af Amer 24 (>60) L 11/06/21 04:15 Est GFR (MDRD) Non-Af 20 (>60) L 11/06/21 04:15 Glucose 153 mg/dL (65-99) H 11/06/21 04:15 POC Glucose (mg/dL) 162 mg/dL (65-99) H 11/06/21 16:15 Calcium 9.3 mg/dL (8.5-10.1) 11/06/21 04:15 Corrected Calcium 10.5 mg/dL (8.5-10.1) H 11/06/21 04:15 Total Bilirubin 0.30 mg/dL (0.2-1.0) 11/06/21 04:15 AST 8 Units/L (15-37) L 11/06/21 04:15 ALT 13 Units/L (12-78) 11/06/21 04:15 Alkaline Phosphatase 88 Units/L (46-116) 11/06/21 04:15 Creatine Kinase 50 Units/L (26-192) 11/01/21 04:13 Troponin I High Sens 38.9 ng/L (4.0-60.0) 11/01/21 04:13 B-Natriuretic Peptide 929 pg/mL (0-79) H* 11/06/21 04:15 Total Protein 6.7 g/dL (6.4-8.2) 11/06/21 04:15 Albumin 2.5 g/dL (3.4-5.0) L 11/06/21 04:15 Globulin 4.2 g/dL (2.5-4.5) 11/06/21 04:15 Albumin/Globulin Ratio 0.6 Ratio (1.1-2.1) L 11/06/21 04:15 Specimen Type Catherized urine 11/01/21 10:18 Urine Color Yellow (YELLOW) 11/01/21 10:18 Urine Appearance Cloudy (CLEAR) 11/01/21 10:18 Urine pH 6.0 (5.0 - 8.0) 11/01/21 10:18 Ur Specific [place] 1.020 (1.000-1.030) 11/01/21 10:18 Urine Protein 4+ (NEGATIVE) 11/01/21 10:18 Urine Glucose (UA) Negative (NEGATIVE) 11/01/21 10:18 Urine Ketones Negative (NEGATIVE) 11/01/21 10:18 Urine Blood 3+ (NEGATIVE) 11/01/21 10:18 Urine Nitrite Negative (NEGATIVE) 11/01/21 10:18 Urine Bilirubin Negative (NEGATIVE) 11/01/21 10:18 Urine Urobilinogen Normal (NORMAL) 11/01/21 10:18 Ur Leukocyte Esterase 3+ (NEGATIVE) 11/01/21 10:18 Urine RBC 3-5 /HPF (0-3) A 11/01/21 10:18 Urine WBC 20-30 /HPF (0-5) A 11/01/21 10:18 Ur Squamous Epith Cells Rare /HPF (NEGATIVE) 11/01/21 10:18 Amorphous Sediment 1+ /HPF (NEGATIVE) 11/01/21 10:18 Urine Bacteria 1+ /HPF (NEGATIVE) 11/01/21 10:18 Urine Mucus Few /HPF (NEGATIVE) 11/01/21 10:18 Ur Culture Indicated? Yes/culture set up 11/01/21 10:18 Vancomycin Trough 14.3 ug/mL (15-20) L 11/06/21 08:00 SARS-CoV-2 (PCR) Negative (NEGATIVE) 10/31/21 17:21 SARS CoV-2 RNA Rapid LEIGH Cancelled 10/31/21 17:21 Plan (1) Acute exacerbation of CHF (congestive heart failure): Status: Acute Qualifiers: Heart failure type: unspecified Plan: SUPPLEMENTAL OXYGEN, DUONEBS Q4H, PULMICORT NEBS BID, FUROSEMIDE 40MG IV DAILY, ZOSYN 3.375G IV TID, VANCOMYCIN 1.5G IV DAILY, HOME MEDS RESUMED (2) COPD exacerbation: Status: Acute (3) Urinary tract infection: Status: Acute Qualifiers: Hematuria presence: with hematuria Urinary tract infection type: acute cystitis Qualified Code(s): N30.01 - Acute cystitis with hematuria (4) SOB (shortness of breath): Status: Acute (5) AMS (altered mental status): Status: Resolved Qualifiers: Altered mental status type: transient alteration of awareness Qualified Code(s): R40.4 - Transient alteration of awareness
[2021-11-06] MEDS: LIPITOR TAB 40 MG PO SCH (20:35)
[2021-11-06] MEDS: LEVEMIR SC SCH (20:35)
[2021-11-06] MEDS: SNACK - Diabetic Appropriate PO SCH (20:39)
[2021-11-07] MEDS: DUONEB 0.5 MG/3 MG (3 mL) NEB SCH ×3 (01:05→08:57)
[2021-11-07 04:53] LABS: BASOPHILS # (AUTO) 0.1 X10^3/uL (0.0-0.1); BASOPHILS % (AUTO) 0.7 % (0.2-1.0); EOSINOPHILS # (AUTO) 0.5 x10^3/uL (0.0-0.2); EOSINOPHILS % (AUTO) 6.6 % (0.9-2.9); HEMATOCRIT 29.4 % (36.0-47.0); HEMOGLOBIN 9.8 g/dL (12.0-16.0); LYMPHOCYTES # (AUTO) 1.2 X10^3/uL (1.3-2.9); LYMPHOCYTES % (AUTO) 16.9 % (21.0-51.0); MEAN CORPUSCULAR HEMOGLOBIN 31.7 pg (27.0-34.0); MEAN CORPUSCULAR HGB CONC 33.2 g/dL (33.0-35.0); MEAN CORPUSCULAR VOLUME 95.5 fL (80.0-100.0); MEAN PLATELET VOLUME 7.4 fL (7.4-11.0); MONOCYTES # (AUTO) 0.5 x10^3/uL (0.3-0.8); MONOCYTES % (AUTO) 6.9 % (0.0-13.0); NEUTROPHILS # (AUTO) 4.9 x10^3/uL (2.2-4.8); NEUTROPHILS % (AUTO) 68.9 % (42.0-75.0); RED BLOOD COUNT 3.08 X10^6/uL (3.5-5.4); RED CELL DISTRIBUTION WIDTH 15.7 % (11.6-16.5); WHITE BLOOD COUNT 7.2 X10^3/uL (3.6-10.0)
[2021-11-07 05:04] LABS: ALBUMIN 2.6 g/dL (3.4-5.0); CALCIUM 9.5 mg/dL (8.5-10.1); CARBON DIOXIDE 34.3 mmol/L (21-32); COR CA(FOR HYPOALB) 10.6 mg/dL (8.5-10.1); CREATININE 2.49 mg/dL (0.55-1.02); TOTAL PROTEIN 6.7 g/dL (6.4-8.2)
[2021-11-07 05:19] LABS: VANCOMYCIN,TROUGH 21.1 ug/mL (15-20)
[2021-11-07] MEDS ORDERED: PHARMACY CONSULT - VANCOMYCIN XX SCH (06:00)
--- NOTE | 2021-11-07 06:19 | RAD ---
HISTORYpneumoniaSTUDYCHEST, 1 [id number]/01/2022.TECHNIQUEAP view of the chestFINDINGSStatus post median sternotomy and CABG. The cardiac silhouette is stably enlarged. Mediastinal contours appear stable. No significant change in bilateral airspace and interstitial pulmonary opacities. Cannot exclude a left-sided pleural effusion. No pneumothorax. Soft tissue attenuation limits evaluation.IMPRESSIONNo significant change compared to prior radiograph.Electronically signed by: Jackson Tan (Nov 07, 2021 06:18:06)
[2021-11-07 08:12] VITALS: BP 163/68
[2021-11-07] MEDS: PULMICORT NEB TX 0.5 MG NEB SCH (08:58)
[2021-11-07] MEDS: PLAVIX PO SCH (08:59)
[2021-11-07] MEDS: CORDARONE TAB 200 MG PO SCH (08:59)
[2021-11-07] MEDS: KEPPRA TAB 500 MG PO SCH (09:00)
[2021-11-07] MEDS: ASPIRIN EC 81 MG PO SCH (09:00)
[2021-11-07] MEDS: COLACE CAP 100 MG PO SCH (09:00)
[2021-11-07] MEDS: APRESOLINE TAB 25 MG PO SCH (09:00)
[2021-11-07] MEDS: LASIX IVP SCH (09:00)
[2021-11-07] MEDS: PROCRIT or EPOGEN VIAL 10,000 UNITS SC PRN (09:00)
[2021-11-07] MEDS: ISOSORBIDE DINITRATE PO SCH (09:01)
[2021-11-07] MEDS: SYNTHROID 25 mcg TAB PO SCH (09:01)
[2021-11-07] MEDS: ZAROXOLYN PO SCH (09:01)
[2021-11-07] MEDS: FOLIC ACID TAB 1 MG PO SCH (09:01)
[2021-11-07] MEDS: HEMOCYTE-PLUS PO SCH (09:01)
[2021-11-07] MEDS: EFFEXOR XR 75 MG CAP 24-HR PO SCH (09:01)
[2021-11-07] MEDS: ROCEPHIN VIAL 1 GRAM 1 G in NS 100 ML IV 100 ML IV SCH (09:02)
[2021-11-07] MEDS: MILK OF MAGNESIA PO SCH (09:02)
[2021-11-07] MEDS: NORVASC TAB 5 MG PO SCH (09:02)
[2021-11-07] MEDS: COREG TAB 12.5 MG PO SCH (09:02)
[2021-11-07] MEDS: XANAX PO SCH (09:03)
[2021-11-07] MEDS: VITAMIN D3 25 mcg (1,000 UNITS) PO SCH (09:03)
[2021-11-07] MEDS: MIRALAX POWDER (1 DOSE 17 G) PO SCH (09:03)
[2021-11-07] MEDS ORDERED: LASIX IVP ONE (09:38)
--- NOTE | 2021-11-07 12:10 | PCM.PROG ---
Progress Note - Progress Note for Day of Date of Exam: 11/04/21 - Subjective Subjective: IS CURRENTLY INPATIENT STATUS FOR TREATMENT OF ACUTE EXACERBATION OF CHF, COPD, UTI, SOB, AND AMS. LAB REPORTED THAT HER PRELIMINARY BLOOD CULTURES WERE POSITIVE. TODAY, SHE IS LYING IN BED WITH EYES CLOSED ON MORNING ROUNDS. SHE AWAKENS TO VERBAL STIMULI. SHE ANSWERS QUESTIONS AND FOLLOWS COMMANDS APPROPRIATELY. SHE DOES CONTINUE WITH COMPLAINTS OF SHORTNESS OF BREATH THIS MORNING, BUT DOES REPORT SLIGHT IMPROVEMENT SINCE YESTERDAY. ON EXAMINATION, HEART IS REGULAR IN RATE AND RHYTHM. BILATERAL LUNGS ARE NOTED WITH DIMINISHED LUNG SOUNDS THROUGHOUT. ABDOMEN IS ROUND, SOFT, AND NON-TENDER WITH NORMAL BOWEL SOUNDS NOTED IN ALL QUADRANTS. CARY CATHETER NOTED TO BEDSIDE DRAINAGE. LOWER EXTREMITIES NOTED WITH TRACE EDEMA. HER VITALS THIS MORNING ARE: 97.6-60-20-96%-149/70. SHE IS CURRENTLY UTILIZING OXYGEN VIA NASAL CANNULA AT 3 LPM. LABS WERE OBTAINED. WBC 6.9, RBC 3.01, HGB 9.3, HCT 28.9, SODIUM 143, POTASSIUM 3.8, CHLORIDE 105, BUN 36, CREATININE 2.44, GLUCOSE 126, AST 7, ALT 12, ALK PHOS 90, BNP 822, TOTAL PROTEIN 6.5, ALBUMIN 2.5. URINE CULTURES REVEAL GROWTH OF E.COLI AND E.COLI #2. A CHEST XRAY WAS OBTAINED AND REVEALED: Patient is status post median sternotomy and CABG. Heart remains enlarged. Pulmonary venous congestion is present. Diffuse interstitial lung changes are again identified and not significantly different from the prior examination considering a significant difference in film technique. These are likely mostly chronic although superimposed acute pneumonitis or edema cannot be excluded. Increased density remains in the retrocardiac area of the left lower lobe which could be on the basis of soft tissue attenuation from the patient's cardiom egaly, pleural effusion, consolidation, or atelectasis or combination. Bony thorax is unremarkable. SHE IS CURRENTLY RECEIVING DUONEBS Q4H, PULMICORT NEBS BID, FUROSEMIDE 40MG IV DAILY, ZOSYN 3.375G IV TID, AND VANCOMYCIN 1.5G IV DAILY. HER HOME MEDICATIONS WERE ALSO RESUMED. WE WILL CONTINUE WITH CURRENT PLAN OF CARE TODAY. OTHERWISE, WE WILL FOLLOW-UP WITH AM LABS AND CONTINUE TO MONITOR. TIME SPENT ON CLINICAL ASSESSMENT, REVIWING LABS AND IMAGING, DECISION MAKING, AND DOCUMENTATION GREATER THAN 45 MINUTES. - Past Medical Family Social History Past Med/Fam/Surg Hx: No changes since H&P Allergies: Allergies Sulfa (Sulfonamide Antibiotics) [SULFA] Allergy (Verified 10/31/21 18:43) ciprofloxacin [From Cipro] Adverse Reaction (Verified 10/31/21 18:43) - Review of Systems ROS: No change since H&P - Vital Signs and I&O's Vital Signs: Temperature 97.5 F Pulse Rate [Bilateral Radial] 51 Pulse Rate 73 Respiratory Rate 20 Blood Pressure [Left Arm] 163/68 Blood Pressure [Right Arm] 145/65 Blood Pressure 163/91 O2 Sat by Pulse Oximetry 99 Intake and Output: Intake & Output 11/05/21 11/06/21 11/07/21 11/08/21 11:59 11:59 11:59 11:59 Intake Total 1856 / 1856 1770 / 1770 1160 / 1160 Output Total 1900 / 1900 2100 / 2100 1800 / 1800 Balance -44 / -44 -330 / -330 -640 / -640 - Physical Exam Oriented: Person, Place Eyes: Normal Ear: Normal Nose: Normal Throat: Normal Respiratory: Diminished Cardiovascular: Normal, Edema (BLE 1+ PITTING EDEMA) : Normal Auscultation: Bowel Sounds: Normal Palpation: Normal Tenderness: Normal Skin: Normal Musculoskeletal: Normal Psychiatric: Normal Mood Description: Calm Affect: Normal Speech Pattern: Clear, Appropriate - Laboratory and Diagnostics Result Diagrams: 11/07/21 04:25 11/07/21 04:25 Labs: 10/31/21 15:44 Blood Blood Culture - Final 11/03/21 15:22 Blood Blood Culture - Preliminary 11/03/21 15:10 Blood Blood Culture - Preliminary 11/01/21 10:18 Urine,Clean Catch Urine Culture - Final Escherichia Coli Escherichia Coli#2 10/31/21 16:00 Blood Blood Culture - Final Laboratory WBC 7.2 X10^3/uL (3.6-10.0) 11/07/21 04:25 RBC 3.08 X10^6/uL (3.5-5.4) L 11/07/21 04:25 Hgb 9.8 g/dL (12.0-16.0) L 11/07/21 04:25 Hct 29.4 % (36.0-47.0) L 11/07/21 04:25 MCV 95.5 fL (80.0-100.0) 11/07/21 04:25 MCH 31.7 pg (27.0-34.0) 11/07/21 04:25 MCHC 33.2 g/dL (33.0-35.0) 11/07/21 04:25 RDW 15.7 % (11.6-16.5) 11/07/21 04:25 Plt Count 259 X10^3/uL (150.0-450.0) 11/07/21 04:25 MPV 7.4 fL (7.4-11.0) 11/07/21 04:25 Neut % (Auto) 68.9 % (42.0-75.0) 11/07/21 04:25 Lymph % (Auto) 16.9 % (21.0-51.0) L 11/07/21 04:25 [place] % (Auto) 6.9 % (0.0-13.0) 11/07/21 04:25 Eos % (Auto) 6.6 % (0.9-2.9) H 11/07/21 04:25 Baso % (Auto) 0.7 % (0.2-1.0) 11/07/21 04:25 Neut # (Auto) 4.9 x10^3/uL (2.2-4.8) H 11/07/21 04:25 Lymph # (Auto) 1.2 X10^3/uL (1.3-2.9) L 11/07/21 04:25 [place] # (Auto) 0.5 x10^3/uL (0.3-0.8) 11/07/21 04:25 Eos # (Auto) 0.5 x10^3/uL (0.0-0.2) H 11/07/21 04:25 Baso # (Auto) 0.1 X10^3/uL (0.0-0.1) 11/07/21 04:25 Absolute Nucleated RBC 0.0 /100WBC 11/07/21 04:25 PT 15.9 SECONDS (11.8-14.3) 11/01/21 04:13 INR Target Range - 11/01/21 04:13 INR 1.32 (0.8-1.3) H 11/01/21 04:13 APTT 28.1 SECONDS (22.9-36.5) 11/01/21 04:13 PTT Comment - 11/01/21 04:13 Sample Site Rrad 11/01/21 09:35 ABG pH 7.370 (7.35-7.45) 11/01/21 09:35 ABG pCO2 61.0 mmHg (35.0-45.0) H* 11/01/21 09:35 ABG pO2 77.0 mmHg (80.0-100.0) L 11/01/21 09:35 ABG HCO3 35.3 mmol/L (22-26) H* 11/01/21 09:35 ABG O2 Saturation 95.0 % (90-100) 11/01/21 09:35 ABG Base Excess 8.0 mmol/L (-2.0-2.0) H 11/01/21 09:35 Kevin Test Pos 11/01/21 09:35 A-a Gradient 75.0 mmHg 11/01/21 09:35 FiO2 32.0 11/01/21 09:35 Blood Gas Comments Surinder well ms/eb 11/01/21 09:35 Sodium 142 mmol/L (136-145) 11/07/21 04:25 Corrected Sodium 144 mmol/L (136-145) 11/07/21 04:25 Potassium 3.5 mmol/L (3.5-5.1) 11/07/21 04:25 Chloride 106 mmol/L (98-107) 11/07/21 04:25 Carbon Dioxide 34.3 mmol/L (21-32) H 11/07/21 04:25 BUN 38 mg/dL (7-18) H 11/07/21 04:25 Creatinine 2.49 mg/dL (0.55-1.02) H 11/07/21 04:25 Est GFR (MDRD) Af Amer 25 (>60) L 11/07/21 04:25 Est GFR (MDRD) Non-Af 21 (>60) L 11/07/21 04:25 Glucose 183 mg/dL (65-99) H 11/07/21 04:25 POC Glucose (mg/dL) 158 mg/dL (65-99) H 11/07/21 05:19 Calcium 9.5 mg/dL (8.5-10.1) 11/07/21 04:25 Corrected Calcium 10.6 mg/dL (8.5-10.1) H 11/07/21 04:25 Total Bilirubin 0.30 mg/dL (0.2-1.0) 11/07/21 04:25 AST 9 Units/L (15-37) L 11/07/21 04:25 ALT 12 Units/L (12-78) 11/07/21 04:25 Alkaline Phosphatase 89 Units/L (46-116) 11/07/21 04:25 Creatine Kinase 50 Units/L (26-192) 11/01/21 04:13 Troponin I High Sens 38.9 ng/L (4.0-60.0) 11/01/21 04:13 B-Natriuretic Peptide 1400 pg/mL (0-79) H* 11/07/21 04:25 Total Protein 6.7 g/dL (6.4-8.2) 11/07/21 04:25 Albumin 2.6 g/dL (3.4-5.0) L 11/07/21 04:25 Globulin 4.1 g/dL (2.5-4.5) 11/07/21 04:25 Albumin/Globulin Ratio 0.6 Ratio (1.1-2.1) L 11/07/21 04:25 Specimen Type Catherized urine 11/01/21 10:18 Urine Color Yellow (YELLOW) 11/01/21 10:18 Urine Appearance Cloudy (CLEAR) 11/01/21 10:18 Urine pH 6.0 (5.0 - 8.0) 11/01/21 10:18 Ur Specific [place] 1.020 (1.000-1.030) 11/01/21 10:18 Urine Protein 4+ (NEGATIVE) 11/01/21 10:18 Urine Glucose (UA) Negative (NEGATIVE) 11/01/21 10:18 Urine Ketones Negative (NEGATIVE) 11/01/21 10:18 Urine Blood 3+ (NEGATIVE) 11/01/21 10:18 Urine Nitrite Negative (NEGATIVE) 11/01/21 10:18 Urine Bilirubin Negative (NEGATIVE) 11/01/21 10:18 Urine Urobilinogen Normal (NORMAL) 11/01/21 10:18 Ur Leukocyte Esterase 3+ (NEGATIVE) 11/01/21 10:18 Urine RBC 3-5 /HPF (0-3) A 11/01/21 10:18 Urine WBC 20-30 /HPF (0-5) A 11/01/21 10:18 Ur Squamous Epith Cells Rare /HPF (NEGATIVE) 11/01/21 10:18 Amorphous Sediment 1+ /HPF (NEGATIVE) 11/01/21 10:18 Urine Bacteria 1+ /HPF (NEGATIVE) 11/01/21 10:18 Urine Mucus Few /HPF (NEGATIVE) 11/01/21 10:18 Ur Culture Indicated? Yes/culture set up 11/01/21 10:18 Vancomycin Trough 21.1 ug/mL (15-20) H* 11/07/21 04:25 SARS-CoV-2 (PCR) Negative (NEGATIVE) 10/31/21 17:21 SARS CoV-2 RNA Rapid LEIGH Cancelled 10/31/21 17:21 - Plan (1) Acute exacerbation of CHF (congestive heart failure) Status: Acute Qualifiers: Heart failure type: unspecified Plan: SUPPLEMENTAL OXYGEN, DUONEBS Q4H, PULMICORT NEBS BID, FUROSEMIDE 40MG IV DAILY, ZOSYN 3.375G IV TID, VANCOMYCIN 1.5G IV DAILY, HOME MEDS RESUMED (2) COPD exacerbation Status: Acute (3) Urinary tract infection Status: Acute Qualifiers: Urinary tract infection type: acute cystitis Hematuria presence: with hematuria Qualified Code(s): N30.01 - Acute cystitis with hematuria (4) SOB (shortness of breath) Status: Acute (5) AMS (altered mental status) Status: Resolved Qualifiers: Altered mental status type: transient alteration of awareness Qualified Code(s): R40.4 - Transient alteration of awareness
[2021-11-07] MEDS ORDERED: PHARMACY COMMENT IV NR (12:30)
== END 2021-11-07 11:36 | DRG 292 ==
LOC: MED/SURG 15:00 → ER 15:00 → MED/SURG 17:24
PROVIDERS: ADMIT Internal Medicine; ATTEND Internal Medicine
DX: F41.8 Other specified anxiety disorders; R94.31 Abnormal electrocardiogram [ECG] [EKG]; E11.22 Type 2 diabetes mellitus with diabetic chronic kidney disease; I50.9 Heart failure, unspecified; D64.89 Other specified anemias; E87.0 Hyperosmolality and hypernatremia; J44.1 Chronic obstructive pulmonary disease with (acute) exacerbation; R07.89 Other chest pain; I25.10 Atherosclerotic heart disease of native coronary artery without angina pectoris; I13.0 Hypertensive heart and chronic kidney disease with heart failure and stage 1 through stage 4 chronic kidney disease, or unspecified chronic kidney disease; N18.4 Chronic kidney disease, stage 4 (severe); R79.1 Abnormal coagulation profile; R06.02 Shortness of breath; Z20.822 Contact with and (suspected) exposure to COVID-19; R26.89 Other abnormalities of gait and mobility; Z79.899 Other long term (current) drug therapy; D50.8 Other iron deficiency anemias; B96.29 Other Escherichia coli [E. coli] as the cause of diseases classified elsewhere; E11.65 Type 2 diabetes mellitus with hyperglycemia; E03.8 Other specified hypothyroidism; N30.01 Acute cystitis with hematuria

== ENCOUNTER 2022-03-27 09:45 | Inpatient (IN) ==
--- NOTE | 2022-03-27 10:09 | DR.SOBA ---
HPI Time Seen Time Seen by Provider: 03/27/22 10:09 Primary Care Physician Primary Care Physician: DR EWING HPI Comment HPI Comment: PATIENT IS 67YR OLD FEMALE IN ER FROM [facility] WITH GENERALIZED PAIN SINCE LAST NIGHT.HER O2 SAT IS LOW AND SHE IS SOB. Complaints Chief Complaint Doctors Comments: SOB WITH GENERALIXED PAIN. O2 SAT DECREASED TO 80'S Chief Complaint:: PT C/O "HURTING ALL OVER" SINCE BEDTIME LAST NIGHT. DENIES ANY OTHER COMPLAINTS. [facility] STAFF REPORTED THAT PT O2 SAT ON RA WAS 85%. ON ARRIVAL TO ED PT WAS 99% ON 2LNC. PT WAS PLACE ON RA AND O2 SAT WAS 95% COVID-19 Coronavirus risk:travel/contact w/high risk person: No Has patient experienced Coronavirus symptoms: No Reviewed Nurses Notes Reviewed: Yes Source History Provided: Patient Mode of Arrival Mode of Arrival: Stretcher Timing Onset of Chief Complaint: 03/27/22 PMH PMH Past Medical History: Yes Past Medical History: Anemia, Arthritis, CHF, COPD, Coronary Artery Disease, Depression, Diabetes, Dyslipidemia, Hypothyroidism, NC and Renal Disease Past Medical History Comment: TIA Past Surgical History: Yes Surgical History: Unknown Family History History of Family Medical Conditions: Yes Family Medical History: Diabetes Mellitus, Cancer, NC and Hypertension Social History Does patient currently use any type of tobacco product: No Have you used tobacco products in the last 12 months: No Type of Tobacco Use: None Does any household member use tobacco: No Alcohol Use: None Do you use any recreational Drugs:: No Lives With: Other Lives Where: [facility] Travel Risk Coronavirus risk:travel/contact w/high risk person: No Has patient experienced Coronavirus symptoms: No Infectious screening In the last 2 months have you had wt loss of >10#?: NO Have you had fever, night sweats or hemotysis?: No Have you traveled outside the country in the last 6 months?: No Isolation: Droplet ROS Review of Systems Constitutional: See HPI, Weakness and Fatigue Eyes: No Symptoms Reported ENTM: See HPI and Nose Congestion Respiratoy: See HPI and Productive Cough Cardiovascular: See HPI, Chest Pain and Edema Gastrointestinal/Abdominal: No Symptoms Reported Genitourinary: No Symptoms Reported Neurological: No Symptoms Reported Musculoskeletal: See HPI and Joint Swelling Integumentary: No Symptoms Reported Hematologic/Lymphatic: No Symptoms Reported Endocrine: No Symptoms Reported Psychiatric: No Symptoms Reported All Other Systems: Reviewed and Negative PE Vital Signs Vitals: Temperature 97.6 F Pulse Rate [Left Brachial] 57 Pulse Rate 74 Respiratory Rate 16 Blood Pressure [Right Arm] 130/58 Blood Pressure [Left Arm] 140/68 Blood Pressure 135/61 O2 Sat by Pulse Oximetry 97 General Limitations: No Limitations General Appearance: Alert and Anxious Head Head Exam: Normal Inspection Eyes Eye exam: Normal Appearance and PERRL ENT ENT Exam: Normal Exam and Mucous Membranes Moist Neck Neck Exam: Normal Inspection and Full ROM Chest Chest Inspection: Normal Inspection and Symmetric Chest Wall Rise Respiratory Respiratory Exam: Normal Lung Sounds Bilat Respiratory Exam: Bilateral: Decreased Breath Sounds Cardiovascular Cardiovascular Exam: Regular Rate and Normal Rhythm Abdominal Exam Abdominal Exam: Normal Inspection, Normal Bowel Sounds and Soft Extremities Extremities Exam: Normal Inspection and Edema (LOWER); negative Calf Tenderness Back Back Exam: Normal Inspection Neurologic Neurological Exam: Alert and Oriented X3 Psychiatric Psychiatric Exam: Normal Affect and Normal Mood Skin Skin Exam: Warm, Dry, Intact and Normal Color MDM Differential Diagnosis Differential Diagnosis: Cardiogenic shock, CHF, Pulmonary embolism, Respiratory Failure and Respiratory Insufficiency COURSE Treatment Treatment: SEE ORDERS WHILE IN ER Reevaluation 1st: Improved Consultation Call Returned: 13:03 Consultation Comments: DR EWING AGREES TO ADMIT Education/Counseling Education/Counseling: Patient and Counseling Educated On: Treatment and Diagnosis Education Comments: SPOKE WITH PATIENT ABOUT ADMISSION ROR Labs Reviewed Laboratory Results Reviewed?: Yes Result Diagrams: 04/10/22 05:20 04/10/22 05:20 Laboratory: 03/27/22 20:00 Urine,Catheterized Urine Culture - Final Escherichia Coli Escherichia Coli#2 WBC 7.3 X10^3/uL (3.6-10.0) 03/29/22 04:10 RBC 2.83 X10^6/uL (3.5-5.4) L 03/29/22 04:10 Hgb 9.0 g/dL (12.0-16.0) L 03/29/22 04:10 Hct 28.3 % (36.0-47.0) L 03/29/22 04:10 MCV 100.0 fL (80.0-100.0) 03/29/22 04:10 MCH 31.8 pg (27.0-34.0) 03/29/22 04:10 MCHC 31.8 g/dL (33.0-35.0) L 03/29/22 04:10 RDW 19.1 % (11.6-16.5) H 03/29/22 04:10 Plt Count 246 X10^3/uL (150.0-450.0) 03/29/22 04:10 MPV 7.1 fL (7.4-11.0) L 03/29/22 04:10 Neut % (Auto) 70.2 % (42.0-75.0) 03/29/22 04:10 Lymph % (Auto) 18.2 % (21.0-51.0) L 03/29/22 04:10 [place] % (Auto) 7.8 % (0.0-13.0) 03/29/22 04:10 Eos % (Auto) 2.9 % (0.9-2.9) 03/29/22 04:10 Baso % (Auto) 0.9 % (0.2-1.0) 03/29/22 04:10 Neut # (Auto) 5.1 x10^3/uL (2.2-4.8) H 03/29/22 04:10 Lymph # (Auto) 1.3 X10^3/uL (1.3-2.9) 03/29/22 04:10 [place] # (Auto) 0.6 x10^3/uL (0.3-0.8) 03/29/22 04:10 Eos # (Auto) 0.2 x10^3/uL (0.0-0.2) 03/29/22 04:10 Baso # (Auto) 0.1 X10^3/uL (0.0-0.1) 03/29/22 04:10 Absolute Nucleated RBC 0.1 /100WBC 03/29/22 04:10 Sodium 141 mmol/L (136-145) 03/29/22 04:10 Corrected Sodium TNP 03/29/22 04:10 Potassium 4.9 mmol/L (3.5-5.1) 03/29/22 04:10 Chloride 106 mmol/L (98-107) 03/29/22 04:10 Carbon Dioxide 31.3 mmol/L (21-32) 03/29/22 04:10 BUN 69 mg/dL (7-18) H 03/29/22 04:10 Creatinine 3.45 mg/dL (0.55-1.02) H 03/29/22 04:10 Est GFR (MDRD) Af Amer 17 (>60) L 03/29/22 04:10 Est GFR (MDRD) Non-Af 14 (>60) L 03/29/22 04:10 Glucose 98 mg/dL (65-99) 03/29/22 04:10 POC Glucose (mg/dL) 97 mg/dL (65-99) 03/29/22 05:00 Calcium 9.7 mg/dL (8.5-10.1) 03/29/22 04:10 Corrected Calcium 11.0 mg/dL (8.5-10.1) H 03/29/22 04:10 Total Bilirubin 0.30 mg/dL (0.2-1.0) 03/29/22 04:10 AST 10 Units/L (15-37) L 03/29/22 04:10 ALT 10 Units/L (12-78) L 03/29/22 04:10 Alkaline Phosphatase 91 Units/L (46-116) 03/29/22 04:10 Creatine Kinase 16 Units/L (26-192) L 03/28/22 16:28 Troponin I High Sens 153.3 ng/L (4.0-60.0) H* 03/29/22 08:59 B-Natriuretic Peptide 1350 pg/mL (0-79) H* 03/29/22 04:10 Total Protein 6.5 g/dL (6.4-8.2) 03/29/22 04:10 Albumin 2.4 g/dL (3.4-5.0) L 03/29/22 04:10 Globulin 4.1 g/dL (2.5-4.5) 03/29/22 04:10 Albumin/Globulin Ratio 0.6 Ratio (1.1-2.1) L 03/29/22 04:10 Specimen Type Catherized urine 03/27/22 20:00 Urine Color Yellow (YELLOW) 03/27/22 20:00 Urine Appearance Hazy (CLEAR) 03/27/22 20:00 Urine pH 5.0 (5.0 - 8.0) 03/27/22 20:00 Ur Specific [place] 1.020 (1.000-1.030) 03/27/22 20:00 Urine Protein 3+ (NEGATIVE) 03/27/22 20:00 Urine Glucose (UA) Negative (NEGATIVE) 03/27/22 20:00 Urine Ketones Negative (NEGATIVE) 03/27/22 20:00 Urine Blood 4+ (NEGATIVE) 03/27/22 20:00 Urine Nitrite Negative (NEGATIVE) 03/27/22 20:00 Urine Bilirubin Negative (NEGATIVE) 03/27/22 20:00 Urine Urobilinogen Normal (NORMAL) 03/27/22 20:00 Ur Leukocyte Esterase 3+ (NEGATIVE) 03/27/22 20:00 Urine RBC 10-20 /HPF (0-3) A 03/27/22 20:00 Urine WBC 20-30 /HPF (0-5) A 03/27/22 20:00 Ur Squamous Epith Cells Few /HPF (NEGATIVE) 03/27/22 20:00 Ur Renal Epithelial Cell Few /HPF (NEGATIVE) 03/27/22 20:00 Urine Bacteria 3+ /HPF (NEGATIVE) 03/27/22 20:00 Urine Mucus Few /HPF (NEGATIVE) 03/27/22 20:00 Urine Yeast Numerous /HPF (NEGATIVE) 03/27/22 20:00 Ur Culture Indicated? Yes/culture set up 03/27/22 20:00 Resp Viral Panel (PCR) See scanned report 03/28/22 14:12 XRAY XRAY Interpreted by: Radiologist X-ray Results: Name: Maria Luisa Hughes : 1955 Sex: F Location: MED/SURG Order Number(s): [id number] Procedure(s):CHEST, 1 VIEW Ordering Physician: YIFAN BROWN Primary Care: Rohit Ewing Service Date: 03/27/22 Service Time: 1012 HISTORY SOB STUDY CHEST, 1 VIEW COMPARISON 03/22/2022 FINDINGS The cardiomediastinal silhouette is widened but stable. Similar post sternotomy changes. Similar bilateral pleural parenchymal opacities. No pneumothorax. The bony thorax appears intact. IMPRESSION Similar bilateral pleural parenchymal opacities. Electronically signed by: GALILEO RODRIGES (Mar 27, 2022 19:11:31) Report Electronically signed: [id number] CC: Yifan Brown EKG Rate: 56 Rhythm: SB Block: 1, AVB and RBBB ST: Old and Infarct Opioid Opioid Risk Tool Age (Taye box if 16-45): No History of Preadolescent Sexual Abuse: No Total: 0 Total Score Risk Category: Low Risk Copyright: [place] predicting aberrant behaviors Discharge Plan Diagnosis Discharge Problem: Chest pain, Hyperkalemia, Elevated troponin, Acute CHF Discharge Plan Patient Disposition: 09 ADMITTED INPATIENT Condition: Stable Orders to Discharge Patient Discharge Orders: Discharge (Routine); Ordered 04/10/22 Ordered By: Rohit Ewing
--- NOTE | 2022-03-27 10:26 | EKG ---
Test Reason : CHEST/SHOULDER PAIN Blood Pressure : */* mmHG Vent. Rate : 56 BPM Atrial Rate : 56 BPM P-R Int : 254 ms QRS Dur : 128 ms QT Int : 452 ms P-R-T Axes : 81 -68 92 degrees QTc Int : 436 ms Sinus bradycardia with 1st degree AV block Left axis deviation Right bundle branch block Possible Inferior infarct (cited on or before 21-JAN-2022) Anterolateral infarct (cited on or before 21-JAN-2022) Abnormal ECG When compared with ECG of 21-JAN-2022 19:29, Significant changes have occurred Confirmed by David Kc (4) on 03/28/2022 8:39:20 AM Referred By: Confirmed By: David Kc
[2022-03-27 10:34] LABS: BASOPHILS % (AUTO) 0.5 % (0.2-1.0); EOSINOPHILS # (AUTO) 0.1 x10^3/uL (0.0-0.2); EOSINOPHILS % (AUTO) 1.1 % (0.9-2.9); HEMATOCRIT 30.1 % (36.0-47.0); HEMOGLOBIN 9.5 g/dL (12.0-16.0); LYMPHOCYTES # (AUTO) 0.8 X10^3/uL (1.3-2.9); MEAN CORPUSCULAR HEMOGLOBIN 31.6 pg (27.0-34.0); MEAN CORPUSCULAR HGB CONC 31.4 g/dL (33.0-35.0); MEAN CORPUSCULAR VOLUME 100.6 fL (80.0-100.0); MEAN PLATELET VOLUME 7.2 fL (7.4-11.0); MONOCYTES # (AUTO) 0.2 x10^3/uL (0.3-0.8); MONOCYTES % (AUTO) 2.6 % (0.0-13.0); NEUTROPHILS # (AUTO) 4.8 x10^3/uL (2.2-4.8); NEUTROPHILS % (AUTO) 82.8 % (42.0-75.0); RED BLOOD COUNT 2.99 X10^6/uL (3.5-5.4); RED CELL DISTRIBUTION WIDTH 19.4 % (11.6-16.5); WHITE BLOOD COUNT 5.8 X10^3/uL (3.6-10.0)
[2022-03-27 10:50] LABS: ALBUMIN 2.6 g/dL (3.4-5.0); CALCIUM 10.1 mg/dL (8.5-10.1); COR CA(FOR HYPOALB) 11.2 mg/dL (8.5-10.1); CREATININE 3.69 mg/dL (0.55-1.02)
[2022-03-27] MEDS ORDERED: PROCRIT or EPOGEN VIAL 10,000 UNITS ONE (11:19)
[2022-03-27] MEDS ORDERED: PROCRIT or EPOGEN VIAL 10,000 UNITS SC ONE (11:21)
[2022-03-27] MEDS ORDERED: LASIX IVP ONE ×2 (11:25→11:29)
[2022-03-27] MEDS ORDERED: D50W ABBOJECT SYR IV ONE (11:26)
[2022-03-27] MEDS ORDERED: NovoLIN R (or HumuLIN R) IV ONE (11:26)
[2022-03-27] MEDS ORDERED: D50W ABBOJECT SYR ONE (11:29)
[2022-03-27] MEDS ORDERED: NovoLIN R (or HumuLIN R) ONE ×2 (11:30→11:37)
[2022-03-27] MEDS ORDERED: KAYEXALATE SUSP PO NR (12:00)
[2022-03-27] MEDS ORDERED: TORADOL 60 MG VIAL ONE (13:39)
--- NOTE | 2022-03-27 19:13 | RAD ---
HISTORYSOBSTUDYCHEST, 1 [id number] cardiomediastinal silhouette is widened but stable. Similar post sternotomy changes. Similar bilateral pleural parenchymal opacities. No pneumothorax. The bony thorax appears intact.IMPRESSIONSimilar bilateral pleural parenchymal opacities.Electronically signed by: GALILEO RODRIGES (Mar 27, 2022 19:11:31)
[2022-03-27 20:08] LABS: BILIRUBIN,URINE NEGATIVE (NEGATIVE); BLOOD/HEMOGLOBIN,URINE 4+ (NEGATIVE); GLUCOSE, URINE NEGATIVE (NEGATIVE); KETONES,URINE NEGATIVE (NEGATIVE); LEUKOCYTE ESTERASE ,URINE 3+ (NEGATIVE); NITRITES,URINE NEGATIVE (NEGATIVE); PROTEIN,URINE 3+ (NEGATIVE); UROBILINOGEN,URINE NORMAL (NORMAL)
[2022-03-27 20:10] LABS: APPEARANCE,URINE HAZY (CLEAR); COLOR,URINE YELLOW (YELLOW)
[2022-03-27 20:27] LABS: BACTERIA,URINE 3+ /HPF (NEGATIVE); SQUAMOUS EPITHELIAL CELL,UR FEW /HPF (NEGATIVE)
[2022-03-27 20:28] LABS: RENAL EPITHELIAL CELLS,URINE FEW /HPF (NEGATIVE); YEAST,URINE NUMEROUS /HPF (NEGATIVE)
[2022-03-27] MEDS: DUONEB 0.5 MG/3 MG (3 mL) NEB SCH (21:00)
[2022-03-27] MEDS ORDERED: ROCEPHIN VIAL 1 GRAM IV SCH (21:24)
[2022-03-27] MEDS ORDERED: ROCEPHIN 1 GRAM IV PREMIX 1 G/50 ML IV.SOLN. IV SCH (22:00)
[2022-03-27] MEDS ORDERED: NS 50 ML IV 50 ML IV ONE (22:49)
[2022-03-27] MEDS ORDERED: ROCEPHIN VIAL 1 GRAM ONE (22:49)
[2022-03-28 05:31] LABS: ALANINE AMINOTRANSFERASE 10 Units/L (12-78); ALBUMIN 2.5 g/dL (3.4-5.0); ALKALINE PHOSPHATASE 94 Units/L (46-116); ASPARTATE AMINO TRANSFERASE 9 Units/L (15-37); BLOOD UREA NITROGEN 71 mg/dL (7-18); CALCIUM 10.1 mg/dL (8.5-10.1); CARBON DIOXIDE 31.6 mmol/L (21-32); CHLORIDE 107 mmol/L (98-107); COR CA(FOR HYPOALB) 11.3 mg/dL (8.5-10.1); CREATININE 3.66 mg/dL (0.55-1.02); SODIUM 142 mmol/L (136-145); TOTAL PROTEIN 6.8 g/dL (6.4-8.2); eGFR NON BLACK RACES 13 (>60)
[2022-03-28 05:34] LABS: BASOPHILS % (AUTO) 0.6 % (0.2-1.0); EOSINOPHILS # (AUTO) 0.2 x10^3/uL (0.0-0.2); EOSINOPHILS % (AUTO) 2.8 % (0.9-2.9); HEMATOCRIT 28.9 % (36.0-47.0); HEMOGLOBIN 9.2 g/dL (12.0-16.0); LYMPHOCYTES # (AUTO) 1.1 X10^3/uL (1.3-2.9); LYMPHOCYTES % (AUTO) 14.6 % (21.0-51.0); MEAN CORPUSCULAR HEMOGLOBIN 31.8 pg (27.0-34.0); MEAN CORPUSCULAR HGB CONC 31.8 g/dL (33.0-35.0); MEAN PLATELET VOLUME 7.3 fL (7.4-11.0); MONOCYTES # (AUTO) 0.6 x10^3/uL (0.3-0.8); MONOCYTES % (AUTO) 7.7 % (0.0-13.0); NEUTROPHILS # (AUTO) 5.6 x10^3/uL (2.2-4.8); NEUTROPHILS % (AUTO) 74.3 % (42.0-75.0); RED CELL DISTRIBUTION WIDTH 19.2 % (11.6-16.5); WHITE BLOOD COUNT 7.6 X10^3/uL (3.6-10.0)
[2022-03-28] MEDS: DUONEB 0.5 MG/3 MG (3 mL) NEB SCH ×3 (06:07→20:00)
[2022-03-28] MEDS: DUONEB 0.5 MG/3 MG (3 mL) NEB ONE ×2 (07:50→10:07)
--- NOTE | 2022-03-28 09:23 | EKG ---
Test Reason : SOB, ELEVATED CARDIAC ENZYMES Blood Pressure : */* mmHG Vent. Rate : 69 BPM Atrial Rate : 69 BPM P-R Int : 244 ms QRS Dur : 110 ms QT Int : 388 ms P-R-T Axes : 85 104 89 degrees QTc Int : 415 ms Sinus rhythm with 1st degree AV block Low voltage QRS Right bundle branch block Possible Anterolateral infarct (cited on or before 21-JAN-2022) Abnormal ECG When compared with ECG of 27-MAR-2022 10:24, QRS axis shifted right Confirmed by David Kc (4) on 03/29/2022 8:43:22 AM Referred By: Confirmed By: David Kc
[2022-03-28] MEDS ORDERED: NovoLIN R (or HumuLIN R) SUBCUT PRN (10:22)
--- NOTE | 2022-03-28 10:29 | DR.H&P ---
H&P - History & Physical for Day of: H&P Date: 03/27/22 - Chief Complaint Chief Complaint: SHORTNESS OF BREATH, GENERALIZED PAIN - History of Present Illness History of Present Illness: IS A 67 YEAR OLD PATIENT OF OURS. SHE IS A RESIDENT OF [facility] [place]. SHE PRESENTED TO THE EMERGENCY ROOM WITH COMPLAINTS OF GENERALIZED PAIN AND SHORTNESS OF BREATH. PATIENT COMPLAINED OF HURTING ALL OVER. RETIREMENT STAFF REPORTED THAT PATIENTS OXYGEN SATURATION ON ROOM AIR WERE 85%. SHE WAS PLACED ON OXYGEN VIA NASAL CANNULA AT 2 LPM PRIOR TO ARRIVAL. HER PMH INCLUDES: ANEMIA, ARTHRITIS, CHF, COPD, CAD, DEPRESSION, DM II, DYSLIPIDEMIA, HYPOTHYROIDISM, NC, RENAL DISEASE, TIA. ON ARRIVAL TO THE ER, HER VITALS WERE: 97.5-59-20-95%-141/65. LABS WERE OBTAINED. WBC 5.8, RBC 2.99, HGB 9.5, HCT 30.1, PLT COUNT 262, SODIUM 142, POTASSIUM 6.0, CHLORIDE 107, CARBON DIOXIDE 33.0, BUN 73, CREATININE 3.69, GLUCOSE 130, CALCIUM 10.1, TOTAL BILI 0.40, AST 9, ALT 12, ALK PHOS 99, CREATINE KINASE 18, TROPONIN 103.3, TOTAL PROTEIN 7.0, ALBUMIN 2.6. A URINALYSIS WAS OBTAINED AND REVEALED: WBC 20-30, RBC 10-20, LEUKOCYTES 3+, BACTERIA 3+, YEAST NUMEROUS. A URINE CULTURE WAS SET UP. A CHEST XRAY WAS OBTAINED AND REVEALED: Similar bilateral pleural parenchymal opacities. EKG OBTAINED AND REVEALED: SINUS BRADYCARDIA WITH 1ST DEGREE AV BLOCK. RIGHT BBB. HR 56 BPM. A CARY CATHETER WAS PLACED IN THE ER. IN THE ER, SHE WAS GIVEN PROCRIT 10,000 UNITS SC X 1 DOSE, LASIX 40MG IV X 1 DOSE, AN AMP OF D50, NOVOLIN R 10 UNITS IV X 1, KAYEXALATE 15G PO X 1, AND A DUONEB X 1. SHE WAS ADMITTED TO THE HOSPITAL OBSERVATION STATUS FOR FURTHER EVALUATION AND TREATMENT OF HYPERKALEMIA, CHF, ACUTE ON CHRONIC RENAL FAILURE, UTI, AND ELEVATED CARDIAC ENZYMES. SHE WAS STARTED ON NORMAL SALINE AT 50 ML/HR, ROCEPHIN 1G IV DAILY, DUONEBS TID, OTBS ACHS, HUMULIN R SLIDING SCALE, AND WE WILL RESUME HER HOME MEDICATIONS WITH THE EXCEPTION OF HER LASIX. WE WILL ENCOURAGE THE USE OF THE BIPAP. WE WILL REPEAT SERIAL CARDIAC ENZYMES AND EKGS. OTHERWISE, WE WILL FOLLOW-UP WITH AM LABS AND CHEST XRAY AND CONTINUE TO MONITOR. TIME SPENT ON CLINICAL ASSESSMENT, REVIWING LABS AND IMAGING, DECISION MAKING, AND DOCUMENTATION GREATER THAN 75 MINUTES. - Past Medical History Past Medical History: NC, Coronary Artery Disease, Dyslipidemia, Diabetes, Renal Disease, Depression, Hypothyroidism, Anemia, COPD, Arthritis, CHF Additional Medical History: atrial fib, legally blind, dysphagia, osteoarthritis, radiculopathy, TIA, COVID-19. - Past Surgical History Surgical History: Unknown - Family History Family Medical History: Diabetes Mellitus, Cancer, NC, Hypertension - Social History Does patient currently use any type of tobacco product: No Have you used tobacco products in the last 12 months: No Type of Tobacco Use: None Does any household member use tobacco: No Alcohol Use: None Drug Use: None - Medications Home Medications: Sulfa (Sulfonamide Antibiotics) [SULFA] Allergy (Verified 10/31/21 18:43) ciprofloxacin [From Cipro] Adverse Reaction (Verified 10/31/21 18:43) CONTINUE taking the following medications artificial tears solution eye drops 1 drp ophthalmic (eye) BID 03/27/22 [History] potassium chloride 20 mEq oral packet (Klor-Con) 20 meq PO QDAY 03/27/22 [ History] quetiapine 25 mg tablet 25 mg PO QPM 03/27/22 [History] - Review of Systems Constitutional: Weakness Eyes: No Symptoms Reported ENT: No Symptoms Reported Respiratory: Shortness of Breath, SOB with Excertion. denies: Cough Cardiovascular: No Symptoms Reported Gastrointestinal: No Symptoms Reported Genitourinary: No Symptoms Reported Musculoskeletal: Back Pain, Leg Pain, Other (BILATERAL KNEE PAIN ) Skin: No Symptoms Reported Neurological: Weakness - Physical Exam Vital Signs: Temperature 98.6 F Pulse Rate [Left Brachial] 62 Pulse Rate 62 Respiratory Rate 20 Blood Pressure [Right Arm] 130/58 Blood Pressure [Left Arm] 140/68 Blood Pressure 135/61 O2 Sat by Pulse Oximetry 90 Oriented: Normal Eyes: Normal Ear: Normal Nose: Normal Throat: Normal Respiratory: Diminished Throughout, Rales Throughout Cardiovascular: Bradycardia : Normal Auscultation: Bowel Sounds: Normal Palpation: Normal Tenderness: Normal Skin: Normal Musculoskeletal: Right, Left, Knee, Back:Lumbar, Tender Psychiatric: Normal Mood Description: Calm Affect: Normal Speech Pattern: Clear - Assessment/Plan (1) Acute exacerbation of CHF (congestive heart failure) Qualifiers: Heart failure type: unspecified Status: Acute Plan: BIPAP, NORMAL SALINE AT 50 ML/HR, ROCEPHIN 1G IV DAILY, DUONEBS TID, OTBS ACHS, HUMULIN R SLIDING SCALE, AND WE WILL RESUME HER HOME MEDICATIONS WITH THE EXCEPTION OF HER LASIX DUE TO RENAL FAILURE. SERIAL CARDIAC ENZYMES AND EKGS. FOLLOW-UP WITH AM LABS AND CHEST XRAY (2) Hyperkalemia Status: Acute (3) Acute on chronic kidney failure Qualifiers: Acute renal failure type: unspecified Chronic kidney disease stage: unspecified stage Qualified Code(s): N17.9 - Acute kidney failure, u nspecified; N18.9 - Chronic kidney disease, unspecified Status: Acute (4) Elevated troponin Status: Acute (5) Urinary tract infection Qualifiers: Urinary tract infection type: acute cystitis Hematuria presence: with hematuria Qualified Code(s): N30.01 - Acute cystitis with hematuria Status: Acute (6) Anemia Qualifiers: Anemia type: iron deficiency Iron deficiency anemia type: chronic blood loss Qualified Code(s): 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 (7) COPD (chronic obstructive pulmonary disease) Qualifiers: COPD type: COPD with acute exacerbation Qualified Code(s): J44.1 - Chronic obstructive pulmonary disease with (acute) exacerbation Status: Chronic (8) Diabetes mellitus, type II Qualifiers: 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 mellitus 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 insulin use: with [facility] use Diabetes mellitus complication status: with kidney complications Diabetes mellitus complication detail: with chronic kidney disease Chronic kidney disease stage: stage 4 (severe) Qualified Code(s): E11.22 - Type 2 diabetes mellitus with diabetic chronic kidney disease; N18.4 - Chronic kidney disease, stage 4 (severe); Z79.4 - [facility] (current) use of insulin Status: Chronic (9) Hyperlipidemia Qualifiers: Hyperlipidemia type: mixed hyperlipidemia Qualified Code(s): E78.2 - Mixed hyperlipidemia Status: Chronic (10) CAD (coronary artery disease) Qualifiers: Coronary Disease-Associated Artery/Lesion type: [place] artery [place] vs. transplanted heart: [place] heart Associated angina: unspecified whether angina present Qualified Code(s): I25.10 - Atherosclerotic heart disease of [place] coronary artery without angina pectoris Status: Chronic - Allergies Allergies/Adverse Reactions: Allergies Allergy/AdvReac Type Severity Reaction Status Date / Time Sulfa (Sulfonamide Allergy Verified 10/31/21 18:43 Antibiotics) [SULFA] ciprofloxacin [From Cipro] AdvReac Verified 10/31/21 18:43
[2022-03-28 10:39] VITALS: BMI 39.6
--- NOTE | 2022-03-28 11:18 | EKG ---
Test Reason : SOB, ELEVATED CARDIAC ENZYMES Blood Pressure : */* mmHG Vent. Rate : 65 BPM Atrial Rate : 65 BPM P-R Int : 248 ms QRS Dur : 108 ms QT Int : 386 ms P-R-T Axes : 84 81 89 degrees QTc Int : 401 ms Sinus rhythm with 1st degree AV block Low voltage QRS Incomplete right bundle branch block Cannot rule out Anteroseptal infarct (cited on or before 21-JAN-2022) Abnormal ECG When compared with ECG of 28-MAR-2022 09:17, (Unconfirmed) Questionable change in initial forces of Lateral leads Confirmed by David Kc (4) on 03/29/2022 8:43:08 AM Referred By: Confirmed By: David Kc
[2022-03-28] MEDS: NS 1,000 ML IV 1,000 ML IV SCH ×2 (11:56→23:35)
[2022-03-28] MEDS ORDERED: TYLENOL #3 TAB (W/CODEINE) PO PRN (14:13)
[2022-03-28] MEDS ORDERED: CHOLECALCIFEROL PO SCH (14:30)
[2022-03-28] MEDS ORDERED: PROCRIT or EPOGEN VIAL 10,000 UNITS SC SCH (15:00)
[2022-03-28] MEDS: EFFEXOR XR 75 MG CAP 24-HR PO SCH (15:40)
[2022-03-28] MEDS: KLOR-CON PO SCH (15:40)
[2022-03-28] MEDS: MIRALAX POWDER (1 DOSE 17 G) PO SCH (15:40)
[2022-03-28] MEDS: XANAX PO SCH (15:40)
[2022-03-28] MEDS: MILK OF MAGNESIA PO SCH ×2 (15:40→17:38)
--- NOTE | 2022-03-28 16:42 | EKG ---
Test Reason : SOB, ELEVATED CARDIAC ENZYMES Blood Pressure : */* mmHG Vent. Rate : 68 BPM Atrial Rate : * BPM P-R Int : * ms QRS Dur : 94 ms QT Int : 424 ms P-R-T Axes : * 129 71 degrees QTc Int : 450 ms Accelerated Junctional rhythm Low voltage QRS Incomplete right bundle branch block Left posterior fascicular block Cannot rule out Anteroseptal infarct (cited on or before 21-JAN-2022) Abnormal ECG When compared with ECG of 28-MAR-2022 11:12, (Unconfirmed) Junctional rhythm has replaced Sinus rhythm Questionable change in initial forces of Anterior leads Nonspecific T wave abnormality, worse in Anterolateral leads Confirmed by David Kc (4) on 03/29/2022 8:34:30 AM Referred By: Confirmed By: David Kc
[2022-03-28] MEDS: LIPITOR TAB 40 MG PO SCH (20:36)
[2022-03-28] MEDS: KEPPRA TAB 500 MG PO SCH (20:36)
[2022-03-28] MEDS: SNACK - Diabetic Appropriate PO SCH ×2 (20:37)
[2022-03-28] MEDS: COREG TAB 12.5 MG PO SCH (20:37)
[2022-03-28] MEDS: COLACE CAP 100 MG PO SCH (20:37)
[2022-03-28] MEDS: SEROquel TAB 25 mg PO SCH (20:37)
[2022-03-28] MEDS: APRESOLINE TAB 25 MG PO SCH (20:37)
[2022-03-28] MEDS: NORVASC TAB 5 MG PO SCH (20:37)
[2022-03-28] MEDS: ARTIFICIAL TEARS DROPS OP SCH (20:38)
[2022-03-28] MEDS: LEVEMIR SC SCH (20:39)
[2022-03-28] MEDS: ROCEPHIN VIAL 1 GRAM 1 G in NS 100 ML IV 100 ML IV SCH (21:46)
[2022-03-28] MEDS: ISOSORBIDE DINITRATE 5 MG PO SCH (23:01)
[2022-03-29] MEDS: DUONEB 0.5 MG/3 MG (3 mL) NEB SCH ×3 (05:07→20:45)
[2022-03-29 05:32] LABS: BASOPHILS # (AUTO) 0.1 X10^3/uL (0.0-0.1); BASOPHILS % (AUTO) 0.9 % (0.2-1.0); EOSINOPHILS # (AUTO) 0.2 x10^3/uL (0.0-0.2); EOSINOPHILS % (AUTO) 2.9 % (0.9-2.9); HEMATOCRIT 28.3 % (36.0-47.0); LYMPHOCYTES # (AUTO) 1.3 X10^3/uL (1.3-2.9); LYMPHOCYTES % (AUTO) 18.2 % (21.0-51.0); MEAN CORPUSCULAR HEMOGLOBIN 31.8 pg (27.0-34.0); MEAN CORPUSCULAR HGB CONC 31.8 g/dL (33.0-35.0); MEAN PLATELET VOLUME 7.1 fL (7.4-11.0); MONOCYTES # (AUTO) 0.6 x10^3/uL (0.3-0.8); MONOCYTES % (AUTO) 7.8 % (0.0-13.0); NEUTROPHILS # (AUTO) 5.1 x10^3/uL (2.2-4.8); NEUTROPHILS % (AUTO) 70.2 % (42.0-75.0); RED BLOOD COUNT 2.83 X10^6/uL (3.5-5.4); RED CELL DISTRIBUTION WIDTH 19.1 % (11.6-16.5); WHITE BLOOD COUNT 7.3 X10^3/uL (3.6-10.0)
[2022-03-29 05:45] LABS: ALANINE AMINOTRANSFERASE 10 Units/L (12-78); ALBUMIN 2.4 g/dL (3.4-5.0); ALKALINE PHOSPHATASE 91 Units/L (46-116); ASPARTATE AMINO TRANSFERASE 10 Units/L (15-37); BLOOD UREA NITROGEN 69 mg/dL (7-18); CALCIUM 9.7 mg/dL (8.5-10.1); CARBON DIOXIDE 31.3 mmol/L (21-32); CHLORIDE 106 mmol/L (98-107); CREATININE 3.45 mg/dL (0.55-1.02); SODIUM 141 mmol/L (136-145); TOTAL PROTEIN 6.5 g/dL (6.4-8.2); eGFR NON BLACK RACES 14 (>60)
--- NOTE | 2022-03-29 07:13 | RAD ---
HISTORYShortness of breathSTUDYChest AP [id number]/20/23FINDINGSPatien t is status post median sternotomy. The heart is enlarged. Pulmonary venous congestion is present. There is some interstitial prominence and some patchy alveolar filling bilaterally. Findings could be consistent with cardiogenic or noncardiogenic pulmonary edema or bilateral pneumonia and is unchanged from prior examination. No definite pleural effusions are identified.IMPRESSIONCardiomegaly with pulmonary venous congestion, prominent interstitium and some patchy alveolar filling which could be on the basis of cardiogenic or noncardiogenic edema or bilateral pneumonia. Findings are unchanged from prior examination.Electronically signed by: GALILEO RODRIGES (Mar 29, 2022 07:11:59)
[2022-03-29] MEDS: APRESOLINE TAB 25 MG PO SCH ×2 (09:33→21:10)
[2022-03-29] MEDS: SYNTHROID 25 mcg TAB PO SCH (09:33)
[2022-03-29] MEDS: KEPPRA TAB 500 MG PO SCH ×2 (09:33→21:09)
[2022-03-29] MEDS: COLACE CAP 100 MG PO SCH ×2 (09:34→21:09)
[2022-03-29] MEDS: KLOR-CON PO SCH (09:34)
[2022-03-29] MEDS: COREG TAB 12.5 MG PO SCH ×2 (09:34→21:10)
[2022-03-29] MEDS: ASPIRIN EC 81 MG PO SCH (09:34)
[2022-03-29] MEDS: HEMOCYTE-PLUS PO SCH (09:34)
[2022-03-29] MEDS: PLAVIX PO SCH (09:34)
[2022-03-29] MEDS: FOLIC ACID TAB 1 MG PO SCH (09:34)
[2022-03-29] MEDS: NORVASC TAB 5 MG PO SCH ×2 (09:34→21:09)
[2022-03-29] MEDS: XANAX PO SCH (09:34)
[2022-03-29] MEDS: EFFEXOR XR 75 MG CAP 24-HR PO SCH (09:34)
[2022-03-29] MEDS: ZAROXOLYN PO SCH (09:35)
[2022-03-29] MEDS: MIRALAX POWDER (1 DOSE 17 G) PO SCH (09:35)
[2022-03-29] MEDS: ISOSORBIDE DINITRATE 5 MG PO SCH ×2 (09:35→21:12)
[2022-03-29] MEDS: ARTIFICIAL TEARS DROPS OP SCH ×2 (09:36→21:10)
[2022-03-29] MEDS: NS 1,000 ML IV 1,000 ML IV SCH ×2 (09:44→15:39)
[2022-03-29] MEDS: MILK OF MAGNESIA PO SCH (10:04)
[2022-03-29 11:00] LABS: ABG ALLEN TEST POS; ABG HCO3 31.5 mmol/L (22-26)
--- NOTE | 2022-03-29 11:44 | PCM.PROG ---
Progress Note - Progress Note for Day of Date of Exam: 03/29/22 - Subjective Subjective: IS CURRENTLY OBSERVATION STATUS FOR TREATMENT OF ACUTE EXACERBATION OF CHF, HYPERKALEMIA, ACUTE ON CHRONIC KIDNEY FAILURE, ELEVATED TROPONIN LEVELS, UTI, AND ANEMIA. ADDITIONALLY, SHE HAS A HISTORY OF COPD, DM II, HYPERLIPIDEMIA, AND CAD. TODAY, SHE IS LYING IN BED WITH EYES CLOSED ON MORNING ROUNDS. SHE AWAKENS TO VERBAL STIMILI, BUT CONTINUES TO BE DROWSY. SHE IS ABLE TO FOLLOW COMMANDS. SHE COMPLAINS OF WEAKNESS AND SHORTNESS OF BREATH THIS MORNING. SHE DENIES CHEST PAIN OR ANY OTHER PAIN AT THE PRESENT TIME. SHE IS CURRENTLY UTILIZING HEATED HIGH FLOW OXYGEN. HER SATURATIONS ARE CURRENTLY 97%. THEY DID DROP TO AROUND 90% THROUGHOUT THE NIGHT. ON EXAMINATION TODAY, SHE IS BRADYCARDIC WITH HR IN THE 50s. RHYTHM IS REGULAR. BILATERAL LUNGS ARE NOTED WITH RHONCHI THROUGHOUT. ABDOMEN IS ROUND, SOFT, AND NON-TENDER WITH NORMAL BOWEL SOUNDS NOTED IN ALL QUADRANTS. CARY CATHETER IS NOTED TO BEDSIDE DRAINAGE. GOOD MOVEMENT NOTED IN ALL EXTREMITIES. TRACE LOWER EXTREMITY EDEMA NOTED. HER VITALS THIS MORNING ARE: 97.6-57-16-97%-130/58. HHF WITH FI02 AT 46% THIS MORNING. LABS WERE OBTAINED. WBC 7.3, RBC 2.83, HGB 9.0, HCT 28.3, SODIUM 141, POTASSIUM 4.9, CHLORIDE 106, BUN 69, CREATININE 3.45, GLUCOSE 98, CALCIUM 9.7, AST 10, ALT 10, ALK PHOS 91, BNP 1350, TOTAL PROTEIN 6.5, ALBUMIN 2.4, TROPONIN 153.3. MOST RECENT TROPONIN IS DOWN COMPARED TO 182.7 AT 16:28 YESTERDAY. I BELIEVE THE ELEVATED TROPONINS ARE RELATED TO HER CHF. A URINE CULTURE IS PENDING. WE OBTAINED AN ABG THIS MORNING. IT REVEALED: PH 7.280, PC02 67, P02 82, HC03 31.5, 02 SAT 94, BASE EXCESS 3.0, A-A GRADIENT 162, FI02 46. SHE IS CURRENTLY RECEIVING NORMAL SALINE AT 50 ML/HR, ROCEPHIN 1G IV DAILY, DUONEBS TID, OTBS ACHS, HUMULIN R SLIDING SCALE, AND WE WILL RESUME HER HOME MEDICATIONS WITH THE EXCEPTION OF HER LASIX. WE ENCOURAGED THE USE OF THE BIPAP DUE TO RESPIRATORY FAILURE WITH HYPERCAPNIA, HOWEVER, PATIENT REFUSES TO WEAR IT AT THIS TIME. SHE STATES THAT SHE CANT TOLERATE WEARING IT. WE WILL FOLLOW-UP WITH AM LABS AND CHEST XRAY AND CONTINUE TO MONITOR. TIME SPENT ON CLINICAL ASSESSMENT, REVIWING LABS AND IMAGING, DECISION MAKING, AND DOCUMENTATION GREATER THAN 45 MINUTES. - Past Medical Family Social History Past Med/Fam/Surg Hx: No changes since H&P Allergies: Allergies Sulfa (Sulfonamide Antibiotics) [SULFA] Allergy (Verified 10/31/21 18:43) ciprofloxacin [From Cipro] Adverse Reaction (Verified 10/31/21 18:43) - Review of Systems ROS: No change since H&P - Vital Signs and I&O's Vital Signs: Temperature 97.6 F Pulse Rate [Left Brachial] 57 Pulse Rate 74 Respiratory Rate 20 Blood Pressure [Right Arm] 130/58 Blood Pressure [Left Arm] 140/68 Blood Pressure 135/61 O2 Sat by Pulse Oximetry 97 Intake and Output: Intake & Output 03/26/22 03/27/22 03/28/22 03/29/22 11:59 11:59 11:59 11:59 Intake Total 250 / 250 2071 / 2071 Output Total 950 / 950 1350 / 1350 Balance -700 / -700 722 / 722 - Physical Exam Oriented: Normal Eyes: Normal Ear: Normal Nose: Normal Throat: Normal Respiratory: Generalized, Diminished Cardiovascular: Bradycardia : Normal Auscultation: Bowel Sounds: Normal Palpation: Normal Tenderness: Normal Skin: Normal Musculoskeletal: Right, Left, Knee, Back:Lumbar, Tender Psychiatric: Normal Mood Description: Calm Affect: Normal Speech Pattern: Clear, Appropriate - Laboratory and Diagnostics Result Diagrams: 03/29/22 04:10 03/29/22 04:10 Labs: 03/27/22 20:00 Urine,Catheterized Urine Culture - Preliminary Laboratory WBC 7.3 X10^3/uL (3.6-10.0) 03/29/22 04:10 RBC 2.83 X10^6/uL (3.5-5.4) L 03/29/22 04:10 Hgb 9.0 g/dL (12.0-16.0) L 03/29/22 04:10 Hct 28.3 % (36.0-47.0) L 03/29/22 04:10 MCV 100.0 fL (80.0-100.0) 03/29/22 04:10 MCH 31.8 pg (27.0-34.0) 03/29/22 04:10 MCHC 31.8 g/dL (33.0-35.0) L 03/29/22 04:10 RDW 19.1 % (11.6-16.5) H 03/29/22 04:10 Plt Count 246 X10^3/uL (150.0-450.0) 03/29/22 04:10 MPV 7.1 fL (7.4-11.0) L 03/29/22 04:10 Neut % (Auto) 70.2 % (42.0-75.0) 03/29/22 04:10 Lymph % (Auto) 18.2 % (21.0-51.0) L 03/29/22 04:10 [place] % (Auto) 7.8 % (0.0-13.0) 03/29/22 04:10 Eos % (Auto) 2.9 % (0.9-2.9) 03/29/22 04:10 Baso % (Auto) 0.9 % (0.2-1.0) 03/29/22 04:10 Neut # (Auto) 5.1 x10^3/uL (2.2-4.8) H 03/29/22 04:10 Lymph # (Auto) 1.3 X10^3/uL (1.3-2.9) 03/29/22 04:10 [place] # (Auto) 0.6 x10^3/uL (0.3-0.8) 03/29/22 04:10 Eos # (Auto) 0.2 x10^3/uL (0.0-0.2) 03/29/22 04:10 Baso # (Auto) 0.1 X10^3/uL (0.0-0.1) 03/29/22 04:10 Absolute Nucleated RBC 0.1 /100WBC 03/29/22 04:10 Sample Site Rrad 03/29/22 10:53 ABG pH 7.280 (7.35-7.45) L 03/29/22 10:53 ABG pCO2 67.0 mmHg (35.0-45.0) H* 03/29/22 10:53 ABG pO2 82.0 mmHg (80.0-100.0) 03/29/22 10:53 ABG HCO3 31.5 mmol/L (22-26) H* 03/29/22 10:53 ABG O2 Saturation 94.0 % (90-100) 03/29/22 10:53 ABG Base Excess 3.0 mmol/L (-2.0-2.0) H 03/29/22 10:53 Kevin Test Pos 03/29/22 10:53 A-a Gradient 162.0 mmHg 03/29/22 10:53 FiO2 46.0 03/29/22 10:53 Blood Gas Comments Pt shayy well elj cdn 03/29/22 10:53 Sodium 141 mmol/L (136-145) 03/29/22 04:10 Corrected Sodium TNP 03/29/22 04:10 Potassium 4.9 mmol/L (3.5-5.1) 03/29/22 04:10 Chloride 106 mmol/L (98-107) 03/29/22 04:10 Carbon Dioxide 31.3 mmol/L (21-32) 03/29/22 04:10 BUN 69 mg/dL (7-18) H 03/29/22 04:10 Creatinine 3.45 mg/dL (0.55-1.02) H 03/29/22 04:10 Est GFR (MDRD) Af Amer 17 (>60) L 03/29/22 04:10 Est GFR (MDRD) Non-Af 14 (>60) L 03/29/22 04:10 Glucose 98 mg/dL (65-99) 03/29/22 04:10 POC Glucose (mg/dL) 97 mg/dL (65-99) 03/29/22 05:00 Calcium 9.7 mg/dL (8.5-10.1) 03/29/22 04:10 Corrected Calcium 11.0 mg/dL (8.5-10.1) H 03/29/22 04:10 Total Bilirubin 0.30 mg/dL (0.2-1.0) 03/29/22 04:10 AST 10 Units/L (15-37) L 03/29/22 04:10 ALT 10 Units/L (12-78) L 03/29/22 04:10 Alkaline Phosphatase 91 Units/L (46-116) 03/29/22 04:10 Creatine Kinase 16 Units/L (26-192) L 03/28/22 16:28 Troponin I High Sens 153.3 ng/L (4.0-60.0) H* 03/29/22 08:59 B-Natriuretic Peptide 1350 pg/mL (0-79) H* 03/29/22 04:10 Total Protein 6.5 g/dL (6.4-8.2) 03/29/22 04:10 Albumin 2.4 g/dL (3.4-5.0) L 03/29/22 04:10 Globulin 4.1 g/dL (2.5-4.5) 03/29/22 04:10 Albumin/Globulin Ratio 0.6 Ratio (1.1-2.1) L 03/29/22 04:10 Specimen Type Catherized urine 03/27/22 20:00 Urine Color Yellow (YELLOW) 03/27/22 20:00 Urine Appearance Hazy (CLEAR) 03/27/22 20:00 Urine pH 5.0 (5.0 - 8.0) 03/27/22 20:00 Ur Specific [place] 1.020 (1.000-1.030) 03/27/22 20:00 Urine Protein 3+ (NEGATIVE) 03/27/22 20:00 Urine Glucose (UA) Negative (NEGATIVE) 03/27/22 20:00 Urine Ketones Negative (NEGATIVE) 03/27/22 20:00 Urine Blood 4+ (NEGATIVE) 03/27/22 20:00 Urine Nitrite Negative (NEGATIVE) 03/27/22 20:00 Urine Bilirubin Negative (NEGATIVE) 03/27/22 20:00 Urine Urobilinogen Normal (NORMAL) 03/27/22 20:00 Ur Leukocyte Esterase 3+ (NEGATIVE) 03/27/22 20:00 Urine RBC 10-20 /HPF (0-3) A 03/27/22 20:00 Urine WBC 20-30 /HPF (0-5) A 03/27/22 20:00 Ur Squamous Epith Cells Few /HPF (NEGATIVE) 03/27/22 20:00 Ur Renal Epithelial Cell Few /HPF (NEGATIVE) 03/27/22 20:00 Urine Bacteria 3+ /HPF (NEGATIVE) 03/27/22 20:00 Urine Mucus Few /HPF (NEGATIVE) 03/27/22 20:00 Urine Yeast Numerous /HPF (NEGATIVE) 03/27/22 20:00 Ur Culture Indicated? Yes/culture set up 03/27/22 20:00 Resp Viral Panel (PCR) See scanned report 03/28/22 14:12 - Plan (1) Acute exacerbation of CHF (congestive heart failure) Status: Acute Qualifiers: Heart failure type: unspecified Plan: SUPPLEMENTAL OXYGEN, BIPAP IF PATIENT WILL WEAR IT, NORMAL SALINE AT 50 ML/HR, ROCEPHIN 1G IV DAILY, DUONEBS TID, OTBS ACHS, HUMULIN R SLIDING SCALE, AND WE WILL RESUME HER HOME MEDICATIONS WITH THE EXCEPTION OF HER LASIX DUE TO RENAL FAILURE. SERIAL CARDIAC ENZYMES AND EKGS. FOLLOW-UP WITH AM LABS AND CHEST XRAY (2) Respiratory failure with hypoxia and hypercapnia Status: Acute Qualifiers: Chronicity: acute on chronic Qualified Code(s): J96.21 - Acute and chronic respiratory failure with hypoxia; J96.22 - Acute and chronic respiratory failure with hypercapnia; J96.22 - Acute and chronic respiratory failure with hypercapnia (3) Hyperkalemia Status: Acute (4) Acute on chronic kidney failure Status: Acute Qualifiers: Acute renal failure type: unspecified Chronic kidney disease stage: unspecified stage Qualified Code(s): N17.9 - Acute kidney failure, unspecified; N18.9 - Chronic kidney disease, unspecified (5) Elevated troponin Status: Acute (6) Urinary tract infection Status: Acute Qualifiers: Urinary tract infection type: acute cystitis Hematuria presence: with hematuria Qualified Code(s): N30.01 - Acute cystitis with hematuria (7) Anemia Status: Chronic Qualifiers: Anemia type: iron deficiency Iron deficiency anemia type: chronic blood loss Qualified Code(s): D50.0 - Iron deficiency anemia secondary to blood loss (chronic) (8) COPD (chronic obstructive pulmonary disease) Status: Chronic Qualifiers: COPD type: COPD with acute exacerbation Qualified Code(s): J44.1 - Chronic obstructive pulmonary disease with (acute) exacerbation (9) Diabetes mellitus, type II Status: Chronic Qualifiers: Diabetes mellitus snf insulin use: 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 Diabetes mellitus complication status: with kidney complications Diabetes mellitus complication detail: with chronic kidney disease Chronic kidney disease stage: stage 4 (severe) Qualified Code(s): E11.22 - Type 2 diabetes mellitus with diabetic chronic kidney disease; N18.4 - Chronic kidney disease, stage 4 (severe); Z79.4 - rn gynecology (current) use of insulin (10) Hyperlipidemia Status: Chronic Qualifiers: Hyperlipidemia type: mixed hyperlipidemia Qualified Code(s): E78.2 - Mixed hyperlipidemia (11) CAD (coronary artery disease) Status: Chronic Qualifiers: Coronary Disease-Associated Artery/Lesion type: [place] artery [place] vs. transplanted heart: [place] heart Associated angina: unspecified whether angina present Qualified Code(s): I25.10 - Atherosclerotic heart disease of [place] coronary artery without angina pectoris
[2022-03-29] MEDS ORDERED: PHARMACY CONSULT - LOVENOX XX SCH (12:00)
[2022-03-29] MEDS: LOVENOX INJ 30 MG SYR SC SCH (12:21)
[2022-03-29] MEDS: SNACK - Diabetic Appropriate PO SCH ×2 (20:05)
[2022-03-29] MEDS: ROCEPHIN VIAL 1 GRAM 1 G in NS 100 ML IV 100 ML IV SCH (21:08)
[2022-03-29] MEDS: LIPITOR TAB 40 MG PO SCH (21:09)
[2022-03-29] MEDS: SEROquel TAB 25 mg PO SCH (21:09)
[2022-03-29] MEDS: LEVEMIR SC SCH (21:10)
[2022-03-30] MEDS: NS 1,000 ML IV 1,000 ML IV SCH (03:29)
[2022-03-30] MEDS: DUONEB 0.5 MG/3 MG (3 mL) NEB SCH ×3 (05:50→21:15)
[2022-03-30 06:14] LABS: BASOPHILS # (AUTO) 0.1 X10^3/uL (0.0-0.1); BASOPHILS % (AUTO) 0.8 % (0.2-1.0); EOSINOPHILS # (AUTO) 0.2 x10^3/uL (0.0-0.2); EOSINOPHILS % (AUTO) 3.7 % (0.9-2.9); HEMATOCRIT 28.5 % (36.0-47.0); LYMPHOCYTES # (AUTO) 0.9 X10^3/uL (1.3-2.9); LYMPHOCYTES % (AUTO) 14.3 % (21.0-51.0); MEAN CORPUSCULAR HEMOGLOBIN 31.8 pg (27.0-34.0); MEAN CORPUSCULAR HGB CONC 31.6 g/dL (33.0-35.0); MEAN CORPUSCULAR VOLUME 100.7 fL (80.0-100.0); MEAN PLATELET VOLUME 7.1 fL (7.4-11.0); MONOCYTES # (AUTO) 0.4 x10^3/uL (0.3-0.8); MONOCYTES % (AUTO) 6.2 % (0.0-13.0); NEUTROPHILS # (AUTO) 4.8 x10^3/uL (2.2-4.8); RED BLOOD COUNT 2.83 X10^6/uL (3.5-5.4); RED CELL DISTRIBUTION WIDTH 19.2 % (11.6-16.5); WHITE BLOOD COUNT 6.4 X10^3/uL (3.6-10.0)
[2022-03-30 06:33] LABS: ALANINE AMINOTRANSFERASE 12 Units/L (12-78); ALBUMIN 2.3 g/dL (3.4-5.0); ALKALINE PHOSPHATASE 85 Units/L (46-116); ASPARTATE AMINO TRANSFERASE 8 Units/L (15-37); BLOOD UREA NITROGEN 67 mg/dL (7-18); CALCIUM 9.9 mg/dL (8.5-10.1); CARBON DIOXIDE 29.3 mmol/L (21-32); CHLORIDE 108 mmol/L (98-107); COR CA(FOR HYPOALB) 11.3 mg/dL (8.5-10.1); CREATININE 3.32 mg/dL (0.55-1.02); SODIUM 143 mmol/L (136-145); TOTAL PROTEIN 6.4 g/dL (6.4-8.2); eGFR NON BLACK RACES 15 (>60)
--- NOTE | 2022-03-30 08:10 | RAD ---
HISTORYChest pain, shortness of breathSTUDYCHEST, 1 [id number]/21/2023FINDINGSPatient is status post median sternotomy. The heart remains enlarged. Pulmonary venous congestion is present. The interstitium is prominent possibly indicative of interstitial edema. Perihilar alveolar infiltrates on the right are unchanged and on the left are improved. This may represent improving congestive heart failure or improving pneumonia. No definite pleural effusions are identified. Bony thorax is unremarkable.IMPRESSIONCardiomegaly, pulmonary venous congestion and interstitial lung changes possibly indicative of congestive heart failure with interstitial edema.No change right perihilar infiltrates, improved left perihilar infiltrates which could indicate improving pneumonia or resolving edema.Electronically signed by: GALILEO RODRIGES (Mar 30, 2022 08:09:01)
[2022-03-30] MEDS: KLOR-CON PO SCH (08:50)
[2022-03-30] MEDS: LOVENOX INJ 30 MG SYR SC SCH (09:42)
[2022-03-30] MEDS: XANAX PO SCH (09:43)
[2022-03-30] MEDS: SYNTHROID 25 mcg TAB PO SCH (09:43)
[2022-03-30] MEDS: NORVASC TAB 5 MG PO SCH ×2 (09:43→21:08)
[2022-03-30] MEDS: HEMOCYTE-PLUS PO SCH (09:43)
[2022-03-30] MEDS: PLAVIX PO SCH (09:43)
[2022-03-30] MEDS: FOLIC ACID TAB 1 MG PO SCH (09:43)
[2022-03-30] MEDS: KEPPRA TAB 500 MG PO SCH ×2 (09:43→21:08)
[2022-03-30] MEDS: COREG TAB 12.5 MG PO SCH ×2 (09:43→21:08)
[2022-03-30] MEDS: APRESOLINE TAB 25 MG PO SCH ×2 (09:43→21:09)
[2022-03-30] MEDS: ASPIRIN EC 81 MG PO SCH (09:43)
[2022-03-30] MEDS: EFFEXOR XR 75 MG CAP 24-HR PO SCH (09:43)
[2022-03-30] MEDS: COLACE CAP 100 MG PO SCH ×2 (09:44→21:08)
[2022-03-30] MEDS: MIRALAX POWDER (1 DOSE 17 G) PO SCH (09:44)
[2022-03-30] MEDS: ZAROXOLYN PO SCH (09:44)
[2022-03-30] MEDS: MILK OF MAGNESIA PO SCH (09:44)
[2022-03-30] MEDS: ARTIFICIAL TEARS DROPS OP SCH ×2 (09:44→21:09)
[2022-03-30] MEDS: ISOSORBIDE DINITRATE 5 MG PO SCH ×2 (09:46→21:09)
--- NOTE | 2022-03-30 10:49 | PCM.PROG ---
Progress Note - Progress Note for Day of Date of Exam: 03/30/22 - Subjective Subjective: IS CURRENTLY INPATIENT STATUS FOR TREATMENT OF ACUTE EXACERBATION OF CHF, ACUTE ON CHRONIC RESPIRATORY FAILURE WITH HYPERCAPNIA, HYPERKALEMIA, ACUTE ON CHRONIC KIDNEY FAILURE, ELEVATED TROPONIN LEVELS, UTI, AND ANEMIA. ADDITIONALLY, SHE HAS A HISTORY OF COPD, DM II, HYPERLIPIDEMIA, AND CAD. TODAY, SHE IS LYING IN BED WITH EYES CLOSED ON MORNING ROUNDS. SHE AWAKENS TO VERBAL STIMILI, BUT CONTINUES TO BE DROWSY. SHE IS ABLE TO FOLLOW COMMANDS. SHE COMPLAINS OF WEAKNESS AND SHORTNESS OF BREATH THIS MORNING. SHE DENIES CHEST PAIN OR ANY OTHER PAIN AT THE PRESENT TIME. NURSING STAFF REPORTS THAT SHE HAS HAD DECREASED ORAL INTAKE. SHE IS CURRENTLY UTILIZING THE BIPAP. HER SATURATIONS HAVE BEEN IN THE UPPER 90s-100% THIS MORNING AND THROUGHOUT THE NIGHT WHILE ON THE BIPAP. ON EXAMINATION TODAY, SHE IS BRADYCARDIC WITH HR IN THE 50s. RHYTHM IS REGULAR. BILATERAL LUNGS ARE NOTED WITH RHONCHI THROUGHOUT. ABDOMEN IS ROUND, SOFT, AND NON-TENDER WITH NORMAL BOWEL SOUNDS NOTED IN ALL QUADRANTS. CARY CATHETER IS NOTED TO BEDSIDE DRAINAGE. GOOD MOVEMENT NOTED IN ALL EXTREMITIES. TRACE LOWER EXTREMITY EDEMA NOTED. HER VITALS THIS MORNING ARE: 97.0-58-15-100%-140/66. BIPAP WITH FI02 AT 40% THIS MORNING. LABS WERE OBTAINED. WBC 6.4, RBC 2.83, HGB 9.0, HCT 28.5, PLT COUNT 232, SODUM 143, POTASSIUM 5.1, CHLORIDE 108, BUN 67, CREATININE 3.32, GLUCOSE 76, CALCIUM 9.9, AST 8, ALT 12, ALK PHOS 85, BNP 801, TOTAL PROTEIN 6.4, ALBUMIN 2.3. HER URINE CULTURE IS POSITIVE FOR GROWTH OF E.COLI AND E.COLI #2. A CHEST XRAY WAS OBTAINED AND REVEALED: Cardiomegaly, pulmonary venous congestion and interstitial lung changes possibly indicative of congestive heart failure with interstitial edema. No change right perihilar infiltrates, improved left perihilar infiltrates which could indicate improving pneumonia or resolving edema. SHE IS CURRENTLY RECEIVING NORMAL SALINE AT 50 ML/HR, ROCEPHIN 1G IV DAILY, DUONEBS TID, OTBS ACHS, HUMULIN R SLIDING SCALE, AND HER HOME MEDICATIONS WERE RESUMED WITH THE EXCEPTION OF HER LASIX. WE ENCOURAGED THE CONTINUED USE OF THE BIPAP DUE TO RESPIRATORY FAILURE WITH HYPERCAPNIA. TODAY, WE WILL CHANGE HER IV FLUIDS TO D5NS AT 50 ML/HR. WE WILL DISCONTINUE THE ROCEPHIN AND START INVANZ 1G IV DAILY. WE WILL ALSO ADD DIFLUCAN 100MG PO DIALY. OTHERWISE, WE WILL FOLLOW-UP WITH AM LABS AND CHEST XRAY AND CONTINUE TO MONITOR. TIME SPENT ON CLINICAL ASSESSMENT, REVIWING LABS AND IMAGING, DECISION MAKING, AND DOCUMENTATION GREATER THAN 45 MINUTES. - Past Medical Family Social History Past Med/Fam/Surg Hx: No changes since H&P Allergies: Allergies Sulfa (Sulfonamide Antibiotics) [SULFA] Allergy (Verified 10/31/21 18:43) ciprofloxacin [From Cipro] Adverse Reaction (Verified 10/31/21 18:43) - Review of Systems ROS: No change since H&P - Vital Signs and I&O's Vital Signs: Temperature 97 F Pulse Rate [Left Brachial] 58 Pulse Rate 78 Respiratory Rate 15 Blood Pressure [Right Arm] 140/66 Blood Pressure [Left Arm] 140/68 Blood Pressure 135/61 O2 Sat by Pulse Oximetry 100 Intake and Output: Intake & Output 03/27/22 03/28/22 03/29/22 03/30/22 11:59 11:59 11:59 11:59 Intake Total 250 / 250 2072 / 2072 1020 / 1020 Output Total 950 / 950 1350 / 1350 275 / 275 Balance -700 / -700 722 / 722 745 / 745 - Physical Exam Oriented: Normal Eyes: Normal Ear: Normal Nose: Normal Throat: Normal Respiratory: Generalized, Diminished Cardiovascular: Bradycardia : Normal Auscultation: Bowel Sounds: Normal Palpation: Normal Tenderness: Normal Skin: Normal Musculoskeletal: Right, Left, Knee, Back:Lumbar, Tender Psychiatric: Normal Mood Description: Calm Affect: Normal Speech Pattern: Clear, Appropriate - Laboratory and Diagnostics Result Diagrams: 03/30/22 05:10 03/30/22 05:10 Labs: 03/29/22 11:00 Sputum - Expectorated Sputum Sputum Culture - Preliminary 03/29/22 11:00 Sputum - Expectorated Sputum - Final 03/27/22 20:00 Urine,Catheterized Urine Culture - Final Escherichia Coli Escherichia Coli#2 Laboratory WBC 6.4 X10^3/uL (3.6-10.0) 03/30/22 05:10 RBC 2.83 X10^6/uL (3.5-5.4) L 03/30/22 05:10 Hgb 9.0 g/dL (12.0-16.0) L 03/30/22 05:10 Hct 28.5 % (36.0-47.0) L 03/30/22 05:10 MCV 100.7 fL (80.0-100.0) H 03/30/22 05:10 MCH 31.8 pg (27.0-34.0) 03/30/22 05:10 MCHC 31.6 g/dL (33.0-35.0) L 03/30/22 05:10 RDW 19.2 % (11.6-16.5) H 03/30/22 05:10 Plt Count 232 X10^3/uL (150.0-450.0) 03/30/22 05:10 MPV 7.1 fL (7.4-11.0) L 03/30/22 05:10 Neut % (Auto) 75.0 % (42.0-75.0) 03/30/22 05:10 Lymph % (Auto) 14.3 % (21.0-51.0) L 03/30/22 05:10 [place] % (Auto) 6.2 % (0.0-13.0) 03/30/22 05:10 Eos % (Auto) 3.7 % (0.9-2.9) H 03/30/22 05:10 Baso % (Auto) 0.8 % (0.2-1.0) 03/30/22 05:10 Neut # (Auto) 4.8 x10^3/uL (2.2-4.8) 03/30/22 05:10 Lymph # (Auto) 0.9 X10^3/uL (1.3-2.9) L 03/30/22 05:10 [place] # (Auto) 0.4 x10^3/uL (0.3-0.8) 03/30/22 05:10 Eos # (Auto) 0.2 x10^3/uL (0.0-0.2) 03/30/22 05:10 Baso # (Auto) 0.1 X10^3/uL (0.0-0.1) 03/30/22 05:10 Absolute Nucleated RBC 0.1 /100WBC 03/30/22 05:10 Sample Site Rrad 03/29/22 10:53 ABG pH 7.280 (7.35-7.45) L 03/29/22 10:53 ABG pCO2 67.0 mmHg (35.0-45.0) H* 03/29/22 10:53 ABG pO2 82.0 mmHg (80.0-100.0) 03/29/22 10:53 ABG HCO3 31.5 mmol/L (22-26) H* 03/29/22 10:53 ABG O2 Saturation 94.0 % (90-100) 03/29/22 10:53 ABG Base Excess 3.0 mmol/L (-2.0-2.0) H 03/29/22 10:53 Kevin Test Pos 03/29/22 10:53 A-a Gradient 162.0 mmHg 03/29/22 10:53 FiO2 46.0 03/29/22 10:53 Blood Gas Comments Pt shayy well elj cdn 03/29/22 10:53 Sodium 143 mmol/L (136-145) 03/30/22 05:10 Corrected Sodium TNP 03/30/22 05:10 Potassium 5.1 mmol/L (3.5-5.1) 03/30/22 05:10 Chloride 108 mmol/L (98-107) H 03/30/22 05:10 Carbon Dioxide 29.3 mmol/L (21-32) 03/30/22 05:10 BUN 67 mg/dL (7-18) H 03/30/22 05:10 Creatinine 3.32 mg/dL (0.55-1.02) H 03/30/22 05:10 Est GFR (MDRD) Af Amer 18 (>60) L 03/30/22 05:10 Est GFR (MDRD) Non-Af 15 (>60) L 03/30/22 05:10 Glucose 76 mg/dL (65-99) 03/30/22 05:10 POC Glucose (mg/dL) 76 mg/dL (65-99) 03/30/22 05:04 Calcium 9.9 mg/dL (8.5-10.1) 03/30/22 05:10 Corrected Calcium 11.3 mg/dL (8.5-10.1) H 03/30/22 05:10 Total Bilirubin 0.30 mg/dL (0.2-1.0) 03/30/22 05:10 AST 8 Units/L (15-37) L 03/30/22 05:10 ALT 12 Units/L (12-78) 03/30/22 05:10 Alkaline Phosphatase 85 Units/L (46-116) 03/30/22 05:10 Creatine Kinase 16 Units/L (26-192) L 03/28/22 16:28 Troponin I High Sens 153.3 ng/L (4.0-60.0) H* 03/29/22 08:59 B-Natriuretic Peptide 801 pg/mL (0-79) H* 03/30/22 05:10 Total Protein 6.4 g/dL (6.4-8.2) 03/30/22 05:10 Albumin 2.3 g/dL (3.4-5.0) L 03/30/22 05:10 Globulin 4.1 g/dL (2.5-4.5) 03/30/22 05:10 Albumin/Globulin Ratio 0.6 Ratio (1.1-2.1) L 03/30/22 05:10 Specimen Type Catherized urine 03/27/22 20:00 Urine Color Yellow (YELLOW) 03/27/22 20:00 Urine Appearance Hazy (CLEAR) 03/27/22 20:00 Urine pH 5.0 (5.0 - 8.0) 03/27/22 20:00 Ur Specific [place] 1.020 (1.000-1.030) 03/27/22 20:00 Urine Protein 3+ (NEGATIVE) 03/27/22 20:00 Urine Glucose (UA) Negative (NEGATIVE) 03/27/22 20:00 Urine Ketones Negative (NEGATIVE) 03/27/22 20:00 Urine Blood 4+ (NEGATIVE) 03/27/22 20:00 Urine Nitrite Negative (NEGATIVE) 03/27/22 20:00 Urine Bilirubin Negative (NEGATIVE) 03/27/22 20:00 Urine Urobilinogen Normal (NORMAL) 03/27/22 20:00 Ur Leukocyte Esterase 3+ (NEGATIVE) 03/27/22 20:00 Urine RBC 10-20 /HPF (0-3) A 03/27/22 20:00 Urine WBC 20-30 /HPF (0-5) A 03/27/22 20:00 Ur Squamous Epith Cells Few /HPF (NEGATIVE) 03/27/22 20:00 Ur Renal Epithelial Cell Few /HPF (NEGATIVE) 03/27/22 20:00 Urine Bacteria 3+ /HPF (NEGATIVE) 03/27/22 20:00 Urine Mucus Few /HPF (NEGATIVE) 03/27/22 20:00 Urine Yeast Numerous /HPF (NEGATIVE) 03/27/22 20:00 Ur Culture Indicated? Yes/culture set up 03/27/22 20:00 Resp Viral Panel (PCR) See scanned report 03/28/22 14:12 - Plan (1) Acute exacerbation of CHF (congestive heart failure) Status: Acute Qualifiers: Heart failure type: unspecified Plan: SUPPLEMENTAL OXYGEN, BIPAP, D5NS AT 50 ML/HR, INVANZ 1G IV DAILY, DIFLUCAN 100MG DAILY, DUONEBS TID, OTBS ACHS, HUMULIN R SLIDING SCALE, AND WE WILL RESUME HER HOME MEDICATIONS WITH THE EXCEPTION OF HER LASIX DUE TO RENAL FAILURE. FOLLOW-UP WITH AM LABS AND CHEST XRAY (2) Respiratory failure with hypoxia and hypercapnia Status: Acute Qualifiers: Chronicity: acute on chronic Qualified Code(s): J96.21 - Acute and chronic respiratory failure with hypoxia; J96.22 - Acute and chronic respiratory failure with hypercapnia; J96.22 - Acute and chronic respiratory failure with hypercapnia (3) Hyperkalemia Status: Acute (4) Acute on chronic kidney failure Status: Acute Qualifiers: Acute renal failure type: unspecified Chronic kidney disease stage: unspecified stage Qualified Code(s): N17.9 - Acute kidney failure, unspecified; N18.9 - Chronic kidney disease, unspecified (5) Elevated troponin Status: Acute (6) Urinary tract infection Status: Acute Qualifiers: Urinary tract infection type: acute cystitis Hematuria presence: with hematuria Qualified Code(s): N30.01 - Acute cystitis with hematuria (7) Anemia Status: Chronic Qualifiers: Anemia type: iron deficiency Iron deficiency anemia type: chronic blood loss Qualified Code(s): D50.0 - Iron deficiency anemia secondary to blood loss (chronic) (8) COPD (chronic obstructive pulmonary disease) Status: Chronic Qualifiers: COPD type: COPD with acute exacerbation Qualified Code(s): J44.1 - Chronic obstructive pulmonary disease with (acute) exacerbation (9) Diabetes mellitus, type II Status: Chronic Qualifiers: Diabetes mellitus terminal operations manager insulin use: with terminal operations manager use Diabetes mellitus complication status: with kidney complications Diabetes mellitus complication detail: with chronic kidney disease Chronic kidney disease stage: stage 4 (severe) Qualified Code(s): E11.22 - Type 2 diabetes mellitus with diabetic chronic kidney disease; N18.4 - Chronic kidney disease, stage 4 (severe); Z79.4 - intermodal customer service (current) use of insulin (10) Hyperlipidemia Status: Chronic Qualifiers: Hyperlipidemia type: mixed hyperlipidemia Qualified Code(s): E78.2 - Mixed hyperlipidemia (11) CAD (coronary artery disease) Status: Chronic Qualifiers: Coronary Disease-Associated Artery/Lesion type: [place] artery [place] vs. transplanted heart: [place] heart Associated angina: unspecified whether angina present Qualified Code(s): I25.10 - Atherosclerotic heart disease of [place] coronary artery without angina pectoris
[2022-03-30] MEDS: D5 NS 1,000 ML IV 1,000 ML IV SCH ×2 (13:57→22:26)
[2022-03-30] MEDS: DIFLUCAN PO SCH (13:58)
[2022-03-30] MEDS: INVanz INJ 1 GRAM VIAL 1 G in NS 100 ML IV 100 ML IV SCH (13:58)
[2022-03-30] MEDS: LIPITOR TAB 40 MG PO SCH (21:08)
[2022-03-30] MEDS: SEROquel TAB 25 mg PO SCH (21:08)
[2022-03-30] MEDS: SNACK - Diabetic Appropriate PO SCH (21:09)
[2022-03-30] MEDS: LEVEMIR SC SCH (21:10)
[2022-03-31 05:26] LABS: BASOPHILS % (AUTO) 0.6 % (0.2-1.0); EOSINOPHILS # (AUTO) 0.2 x10^3/uL (0.0-0.2); EOSINOPHILS % (AUTO) 3.5 % (0.9-2.9); HEMATOCRIT 27.2 % (36.0-47.0); HEMOGLOBIN 8.7 g/dL (12.0-16.0); LYMPHOCYTES # (AUTO) 1.2 X10^3/uL (1.3-2.9); LYMPHOCYTES % (AUTO) 18.7 % (21.0-51.0); MEAN CORPUSCULAR HGB CONC 32.1 g/dL (33.0-35.0); MEAN CORPUSCULAR VOLUME 99.8 fL (80.0-100.0); MEAN PLATELET VOLUME 7.4 fL (7.4-11.0); MONOCYTES # (AUTO) 0.4 x10^3/uL (0.3-0.8); MONOCYTES % (AUTO) 6.5 % (0.0-13.0); NEUTROPHILS # (AUTO) 4.6 x10^3/uL (2.2-4.8); NEUTROPHILS % (AUTO) 70.7 % (42.0-75.0); RED BLOOD COUNT 2.73 X10^6/uL (3.5-5.4); RED CELL DISTRIBUTION WIDTH 19.1 % (11.6-16.5); WHITE BLOOD COUNT 6.5 X10^3/uL (3.6-10.0)
[2022-03-31] MEDS: DUONEB 0.5 MG/3 MG (3 mL) NEB SCH ×3 (05:30→21:41)
[2022-03-31 05:37] LABS: ALANINE AMINOTRANSFERASE 9 Units/L (12-78); ALBUMIN 2.1 g/dL (3.4-5.0); ALKALINE PHOSPHATASE 81 Units/L (46-116); ASPARTATE AMINO TRANSFERASE 8 Units/L (15-37); BLOOD UREA NITROGEN 62 mg/dL (7-18); CALCIUM 9.5 mg/dL (8.5-10.1); CARBON DIOXIDE 30.1 mmol/L (21-32); CHLORIDE 108 mmol/L (98-107); CREATININE 3.16 mg/dL (0.55-1.02); SODIUM 141 mmol/L (136-145); eGFR NON BLACK RACES 16 (>60)
--- NOTE | 2022-03-31 06:29 | RAD ---
HISTORYShortness of breathSTUDYChest AP [id number] March 2022FINDINGSPatient is status post median sternotomy. The heart remains enlarged. Pulmonary venous congestion is present. The aliay are indistinct in the interstitium remains prominent likely indicative of interstitial edema. Mild perihilar alveolar infiltrates are present on the right. There is increasing density in the retrocardiac area of the left lower lobe obscuring left hemidiaphragm. This could be on the basis of pleural fluid, atelectasis, consolidation or combination. Bony thorax is unremarkable.IMPRESSIONCardiomegaly with mild congestive heart failure unchangedPerihilar infiltrate on the right most likely some asymmetric edema although infection not excluded.Increasing density retrocardiac area left lower lobe obscuring the left hemidiaphragm. Differential diagnosis as aboveElectronically signed by: GALILEO RODRIGES (Mar 31, 2022 06:27:35)
[2022-03-31] MEDS: NORVASC TAB 5 MG PO SCH ×2 (09:31→21:03)
[2022-03-31] MEDS: HEMOCYTE-PLUS PO SCH (09:31)
[2022-03-31] MEDS: APRESOLINE TAB 25 MG PO SCH ×2 (09:31→21:04)
[2022-03-31] MEDS: COLACE CAP 100 MG PO SCH ×2 (09:31→21:04)
[2022-03-31] MEDS: COREG TAB 12.5 MG PO SCH ×2 (09:32→21:04)
[2022-03-31] MEDS: XANAX PO SCH (09:32)
[2022-03-31] MEDS: EFFEXOR XR 75 MG CAP 24-HR PO SCH (09:32)
[2022-03-31] MEDS: PLAVIX PO SCH (09:32)
[2022-03-31] MEDS: KEPPRA TAB 500 MG PO SCH ×2 (09:32→21:04)
[2022-03-31] MEDS: DIFLUCAN PO SCH (09:32)
[2022-03-31] MEDS: SYNTHROID 25 mcg TAB PO SCH (09:32)
[2022-03-31] MEDS: FOLIC ACID TAB 1 MG PO SCH (09:32)
[2022-03-31] MEDS: LOVENOX INJ 30 MG SYR SC SCH (09:32)
[2022-03-31] MEDS: ZAROXOLYN PO SCH (09:32)
[2022-03-31] MEDS: INVanz INJ 1 GRAM VIAL 1 G in NS 100 ML IV 100 ML IV SCH (09:33)
[2022-03-31] MEDS: ARTIFICIAL TEARS DROPS OP SCH ×2 (09:39→21:05)
[2022-03-31] MEDS: MILK OF MAGNESIA PO SCH (09:40)
[2022-03-31] MEDS: KLOR-CON PO SCH (09:40)
[2022-03-31] MEDS: MIRALAX POWDER (1 DOSE 17 G) PO SCH (09:40)
[2022-03-31] MEDS: ASPIRIN EC 81 MG PO SCH (09:43)
[2022-03-31] MEDS: ISOSORBIDE DINITRATE 5 MG PO SCH ×2 (09:52→21:03)
--- NOTE | 2022-03-31 12:11 | PCM.PROG ---
Progress Note - Progress Note for Day of Date of Exam: 03/31/22 - Subjective Subjective: IS CURRENTLY INPATIENT STATUS FOR TREATMENT OF ACUTE EXACERBATION OF CHF, ACUTE ON CHRONIC RESPIRATORY FAILURE WITH HYPERCAPNIA, HYPERKALEMIA, ACUTE ON CHRONIC KIDNEY FAILURE, ELEVATED TROPONIN LEVELS, UTI, AND ANEMIA. ADDITIONALLY, SHE HAS A HISTORY OF COPD, DM II, HYPERLIPIDEMIA, AND CAD. TODAY, SHE IS ALERT, LYING IN BED ON MORNING ROUNDS. SHE IS ABLE TO FOLLOW COMMANDS. SHE COMPLAINS OF WEAKNESS AND SHORTNESS OF BREATH THIS MORNING. SHE ALSO REPORTS HAVING A PRODUCTIVE COUGH AND LOW BACK PAIN. NURSING STAFF REPORTS THAT SHE HAS HAD DECREASED ORAL INTAKE. SHE IS CURRENTLY UTILIZING HEATED HIGH FLOW OXYGEN. SHE WAS NOT ABLE TO TOLERATE WEARING THE BIPAP MUCH THROUGHOUT THE NIGHT. ON EXAMINATION TODAY, HEART IS REGULAR IN RATE AND RHYTHM. BILATERAL LUNGS ARE NOTED WITH RHONCHI THROUGHOUT. ABDOMEN IS ROUND, SOFT, AND NON-TENDER WITH NORMAL BOWEL SOUNDS NOTED IN ALL QUADRANTS. CARY CATHETER IS NOTED TO BEDSIDE DRAINAGE. GOOD MOVEMENT NOTED IN ALL EXTREMITIES. TRACE LOWER EXTREMITY EDEMA NOTED. HER VITALS THIS MORNING ARE: 97.7-64-20-93%-124/59. HEATED HIGH FLOW OXYGEN WITH FI02 AT 40% THIS MORNING. LABS WERE OBTAINED. WBC 6.5, RBC 2.73, HGB 8.7, HCT 27.2, PLT COUNT 205, SODIUM 141, POTASSIUM 5.0, CHLORIDE 108, BUN 62, CREATININE 3.16, GLUCOSE 83, CALCIUM 9.5, AST 8, ALT 9, ALK PHOS 81, BNP 822, TOTAL PROTEIN 6.0, ALBUMIN 2.1. HER URINE CULTURE IS POSITIVE FOR GROWTH OF E.COLI AND E.COLI #2. SPUTUM CULTURE IS POSITIVE FOR GROWTH OF KLEBSIELLA PNEUMONIAE. A CHEST XRAY WAS OBTAINED AND REVEALED: Cardiomegaly with mild congestive heart failure unchanged. Perihilar infiltrate on the right most likely some asymmetric edema although infection not excluded. Increasing density retrocardiac area left lower lobe obscuring the left hemidiaphragm. SHE IS CURRENTLY RECEIVING D5NS AT 50 ML/HR, INVANZ 1G IV DAILY, DIFLUCAN 100MG PO DAILY, DUONEBS TID, OTBS ACHS, HUMULIN R SLIDING SCALE, AND HER HOME MEDICATIONS WERE RESUMED WITH THE EXCEPTION OF HER LASIX. WE ENCOURAGED THE CONTINUED USE OF THE BIPAP DUE TO RESPIRATORY FAILURE WITH HYPERCAPNIA. TODAY, WE WILL ADD MORPHINE 1MG IV Q4H FOR PAIN AND AIR HUNGER. OTHERWISE, WE WILL FOLLOW-UP WITH AM LABS AND CHEST XRAY AND CONTINUE TO MONITOR. TIME SPENT ON CLINICAL ASSESSMENT, REVIWING LABS AND IMAGING, DECISION MAKING, AND DOCUMENTATION GREATER THAN 45 MINUTES. - Past Medical Family Social History Past Med/Fam/Surg Hx: No changes since H&P Allergies: Allergies Sulfa (Sulfonamide Antibiotics) [SULFA] Allergy (Verified 10/31/21 18:43) ciprofloxacin [From Cipro] Adverse Reaction (Verified 10/31/21 18:43) - Review of Systems ROS: No change since H&P - Vital Signs and I&O's Vital Signs: Temperature 97.7 F Pulse Rate [Left Brachial] 64 Pulse Rate 61 Respiratory Rate 14 Blood Pressure [Right Arm] 124/59 Blood Pressure [Left Arm] 140/68 Blood Pressure 135/61 O2 Sat by Pulse Oximetry 93 Intake and Output: Intake & Output 03/29/22 03/30/22 03/31/22 04/01/22 11:59 11:59 11:59 11:59 Intake Total 2071 / 2 1020 / 1020 1675 / 1675 Output Total 1350 / 1350 275 / 275 850 / 850 Balance 722 / 722 745 / 745 825 / 825 - Physical Exam Oriented: Normal Eyes: Normal Ear: Normal Nose: Normal Throat: Normal Respiratory: Generalized, Diminished, Rhonchi Cardiovascular: Bradycardia : Normal Auscultation: Bowel Sounds: Normal Palpation: Normal Tenderness: Normal Skin: Normal Musculoskeletal: Right, Left, Knee, Back:Lumbar, Tender Psychiatric: Normal Mood Description: Calm Affect: Normal Speech Pattern: Clear, Appropriate - Laboratory and Diagnostics Result Diagrams: 03/31/22 04:51 03/31/22 04:51 Labs: 03/29/22 11:00 Sputum - Expectorated Sputum Sputum Culture - Preliminary Klebsiella Pneumoniae 03/29/22 11:00 Sputum - Expectorated Sputum - Final 03/27/22 20:00 Urine,Catheterized Urine Culture - Final Escherichia Coli Escherichia Coli#2 Laboratory WBC 6.5 X10^3/uL (3.6-10.0) 03/31/22 04:51 RBC 2.73 X10^6/uL (3.5-5.4) L 03/31/22 04:51 Hgb 8.7 g/dL (12.0-16.0) L 03/31/22 04:51 Hct 27.2 % (36.0-47.0) L 03/31/22 04:51 MCV 99.8 fL (80.0-100.0) 03/31/22 04:51 MCH 32.0 pg (27.0-34.0) 03/31/22 04:51 MCHC 32.1 g/dL (33.0-35.0) L 03/31/22 04:51 RDW 19.1 % (11.6-16.5) H 03/31/22 04:51 Plt Count 205 X10^3/uL (150.0-450.0) 03/31/22 04:51 MPV 7.4 fL (7.4-11.0) 03/31/22 04:51 Neut % (Auto) 70.7 % (42.0-75.0) 03/31/22 04:51 Lymph % (Auto) 18.7 % (21.0-51.0) L 03/31/22 04:51 [place] % (Auto) 6.5 % (0.0-13.0) 03/31/22 04:51 Eos % (Auto) 3.5 % (0.9-2.9) H 03/31/22 04:51 Baso % (Auto) 0.6 % (0.2-1.0) 03/31/22 04:51 Neut # (Auto) 4.6 x10^3/uL (2.2-4.8) 03/31/22 04:51 Lymph # (Auto) 1.2 X10^3/uL (1.3-2.9) L 03/31/22 04:51 [place] # (Auto) 0.4 x10^3/uL (0.3-0.8) 03/31/22 04:51 Eos # (Auto) 0.2 x10^3/uL (0.0-0.2) 03/31/22 04:51 Baso # (Auto) 0.0 X10^3/uL (0.0-0.1) 03/31/22 04:51 Absolute Nucleated RBC 0.1 /100WBC 03/31/22 04:51 Sample Site Rrad 03/29/22 10:53 ABG pH 7.280 (7.35-7.45) L 03/29/22 10:53 ABG pCO2 67.0 mmHg (35.0-45.0) H* 03/29/22 10:53 ABG pO2 82.0 mmHg (80.0-100.0) 03/29/22 10:53 ABG HCO3 31.5 mmol/L (22-26) H* 03/29/22 10:53 ABG O2 Saturation 94.0 % (90-100) 03/29/22 10:53 ABG Base Excess 3.0 mmol/L (-2.0-2.0) H 03/29/22 10:53 Kevin Test Pos 03/29/22 10:53 A-a Gradient 162.0 mmHg 03/29/22 10:53 FiO2 46.0 03/29/22 10:53 Blood Gas Comments Pt shayy well elj cdn 03/29/22 10:53 Sodium 141 mmol/L (136-145) 03/31/22 04:51 Corrected Sodium TNP 03/31/22 04:51 Potassium 5.0 mmol/L (3.5-5.1) 03/31/22 04:51 Chloride 108 mmol/L (98-107) H 03/31/22 04:51 Carbon Dioxide 30.1 mmol/L (21-32) 03/31/22 04:51 BUN 62 mg/dL (7-18) H 03/31/22 04:51 Creatinine 3.16 mg/dL (0.55-1.02) H 03/31/22 04:51 Est GFR (MDRD) Af Amer 19 (>60) L 03/31/22 04:51 Est GFR (MDRD) Non-Af 16 (>60) L 03/31/22 04:51 Glucose 83 mg/dL (65-99) 03/31/22 04:51 POC Glucose (mg/dL) 86 mg/dL (65-99) 03/31/22 05:30 Calcium 9.5 mg/dL (8.5-10.1) 03/31/22 04:51 Corrected Calcium 11.0 mg/dL (8.5-10.1) H 03/31/22 04:51 Total Bilirubin 0.30 mg/dL (0.2-1.0) 03/31/22 04:51 AST 8 Units/L (15-37) L 03/31/22 04:51 ALT 9 Units/L (12-78) L 03/31/22 04:51 Alkaline Phosphatase 81 Units/L (46-116) 03/31/22 04:51 Creatine Kinase 16 Units/L (26-192) L 03/28/22 16:28 Troponin I High Sens 153.3 ng/L (4.0-60.0) H* 03/29/22 08:59 B-Natriuretic Peptide 822 pg/mL (0-79) H* 03/31/22 04:51 Total Protein 6.0 g/dL (6.4-8.2) L 03/31/22 04:51 Albumin 2.1 g/dL (3.4-5.0) L 03/31/22 04:51 Globulin 3.9 g/dL (2.5-4.5) 03/31/22 04:51 Albumin/Globulin Ratio 0.5 Ratio (1.1-2.1) L 03/31/22 04:51 Specimen Type Catherized urine 03/27/22 20:00 Urine Color Yellow (YELLOW) 03/27/22 20:00 Urine Appearance Hazy (CLEAR) 03/27/22 20:00 Urine pH 5.0 (5.0 - 8.0) 03/27/22 20:00 Ur Specific [place] 1.020 (1.000-1.030) 03/27/22 20:00 Urine Protein 3+ (NEGATIVE) 03/27/22 20:00 Urine Glucose (UA) Negative (NEGATIVE) 03/27/22 20:00 Urine Ketones Negative (NEGATIVE) 03/27/22 20:00 Urine Blood 4+ (NEGATIVE) 03/27/22 20:00 Urine Nitrite Negative (NEGATIVE) 03/27/22 20:00 Urine Bilirubin Negative (NEGATIVE) 03/27/22 20:00 Urine Urobilinogen Normal (NORMAL) 03/27/22 20:00 Ur Leukocyte Esterase 3+ (NEGATIVE) 03/27/22 20:00 Urine RBC 10-20 /HPF (0-3) A 03/27/22 20:00 Urine WBC 20-30 /HPF (0-5) A 03/27/22 20:00 Ur Squamous Epith Cells Few /HPF (NEGATIVE) 03/27/22 20:00 Ur Renal Epithelial Cell Few /HPF (NEGATIVE) 03/27/22 20:00 Urine Bacteria 3+ /HPF (NEGATIVE) 03/27/22 20:00 Urine Mucus Few /HPF (NEGATIVE) 03/27/22 20:00 Urine Yeast Numerous /HPF (NEGATIVE) 03/27/22 20:00 Ur Culture Indicated? Yes/culture set up 03/27/22 20:00 Resp Viral Panel (PCR) See scanned report 03/28/22 14:12 - Plan (1) Acute exacerbation of CHF (congestive heart failure) Status: Acute Qualifiers: Heart failure type: unspecified Plan: SUPPLEMENTAL OXYGEN, BIPAP, D5NS AT 50 ML/HR, INVANZ 1G IV DAILY, DIFLUCAN 100MG DAILY, DUONEBS TID, MORPHINE 1MG IV Q4H, OTBS ACHS, HUMULIN R SLIDING SCALE, AND WE WILL RESUME HER HOME MEDICATIONS WITH THE EXCEPTION OF HER LASIX DUE TO RENAL FAILURE. FOLLOW-UP WITH AM LABS AND CHEST XRAY (2) Respiratory failure with hypoxia and hypercapnia Status: Acute Qualifiers: Chronicity: acute on chronic Qualified Code(s): J96.21 - Acute and chronic respiratory failure with hypoxia; J96.22 - Acute and chronic respiratory failure with hypercapnia; J96.22 - Acute and chronic respiratory failure with hypercapnia (3) Hyperkalemia Status: Acute (4) Acute on chronic kidney failure Status: Acute Qualifiers: Acute renal failure type: unspecified Chronic kidney disease stage: unspecified stage Qualified Code(s): N17.9 - Acute kidney failure, unspecified; N18.9 - Chronic kidney disease, unspecified (5) Elevated troponin Status: Acute (6) Urinary tract infection Status: Acute Qualifiers: Urinary tract infection type: acute cystitis Hematuria presence: with hematuria Qualified Code(s): N30.01 - Acute cystitis with hematuria (7) Anemia Status: Chronic Qualifiers: Anemia type: iron deficiency Iron deficiency anemia type: chronic blood loss Qualified Code(s): D50.0 - Iron deficiency anemia secondary to blood loss (chronic) (8) COPD (chronic obstructive pulmonary disease) Status: Chronic Qualifiers: COPD type: COPD with acute exacerbation Qualified Code(s): J44.1 - Chronic obstructive pulmonary disease with (acute) exacerbation (9) Diabetes mellitus, type II Status: Chronic Qualifiers: Diabetes mellitus long-term insulin use: with local intermodal truck driver use Diabetes mellitus complication status: with kidney complications Diabetes mellitus complication detail: with chronic kidney disease Chronic kidney disease stage: stage 4 (severe) Qualified Code(s): E11.22 - Type 2 diabetes mellitus with diabetic chronic kidney disease; N18.4 - Chronic kidney disease, stage 4 (severe); Z79.4 - watermelon inspector (current) use of insulin (10) Hyperlipidemia Status: Chronic Qualifiers: Hyperlipidemia type: mixed hyperlipidemia Qualified Code(s): E78.2 - Mixed hyperlipidemia (11) CAD (coronary artery disease) Status: Chronic Qualifiers: Coronary Disease-Associated Artery/Lesion type: [place] artery [place] vs. transplanted heart: [place] heart Associated angina: unspecified whether angina present Qualified Code(s): I25.10 - Atherosclerotic heart disease of [place] coronary artery without angina pectoris
[2022-03-31] MEDS: D5 NS 1,000 ML IV 1,000 ML IV SCH (13:15)
[2022-03-31] MEDS: MORPHINE SULFATE INJ 2 MG INJ IVP SCH ×3 (17:34→21:06)
[2022-03-31] MEDS: SNACK - Diabetic Appropriate PO SCH (21:00)
[2022-03-31] MEDS: SEROquel TAB 25 mg PO SCH (21:04)
[2022-03-31] MEDS: LIPITOR TAB 40 MG PO SCH (21:04)
[2022-03-31] MEDS: LEVEMIR SC SCH (21:25)
[2022-04-01] MEDS: MORPHINE SULFATE INJ 2 MG INJ IVP SCH ×6 (00:35→22:00)
[2022-04-01] MEDS: D5 NS 1,000 ML IV 1,000 ML IV SCH ×3 (00:35→14:04)
[2022-04-01] MEDS: DUONEB 0.5 MG/3 MG (3 mL) NEB SCH ×3 (05:55→21:30)
--- NOTE | 2022-04-01 07:02 | RAD ---
HISTORYSOBSTUDYAP chestCOMPARISONFebruary 2022FINDINGSSimilar cardiomegaly. Increasing bilateral confluent airspace disease is noted with possible left pleural effusion. No pneumothorax seen.IMPRESSIONInterval increase in bilateral pulmonary edema.Electronically signed by: JERRY REY (Apr 01, 2022 07:01:18)
[2022-04-01 07:05] LABS: BASOPHILS % (AUTO) 0.5 % (0.2-1.0); EOSINOPHILS # (AUTO) 0.3 x10^3/uL (0.0-0.2); EOSINOPHILS % (AUTO) 5.9 % (0.9-2.9); HEMATOCRIT 29.1 % (36.0-47.0); HEMOGLOBIN 9.1 g/dL (12.0-16.0); LYMPHOCYTES % (AUTO) 18.7 % (21.0-51.0); MEAN CORPUSCULAR HEMOGLOBIN 31.5 pg (27.0-34.0); MEAN CORPUSCULAR HGB CONC 31.1 g/dL (33.0-35.0); MEAN CORPUSCULAR VOLUME 101.2 fL (80.0-100.0); MEAN PLATELET VOLUME 7.2 fL (7.4-11.0); MONOCYTES # (AUTO) 0.4 x10^3/uL (0.3-0.8); MONOCYTES % (AUTO) 7.4 % (0.0-13.0); NEUTROPHILS # (AUTO) 3.8 x10^3/uL (2.2-4.8); NEUTROPHILS % (AUTO) 67.5 % (42.0-75.0); RED BLOOD COUNT 2.88 X10^6/uL (3.5-5.4); RED CELL DISTRIBUTION WIDTH 19.6 % (11.6-16.5); WHITE BLOOD COUNT 5.6 X10^3/uL (3.6-10.0)
[2022-04-01 07:18] LABS: ALBUMIN 2.2 g/dL (3.4-5.0); CALCIUM 9.6 mg/dL (8.5-10.1); CARBON DIOXIDE 30.4 mmol/L (21-32); CREATININE 3.04 mg/dL (0.55-1.02); TOTAL PROTEIN 6.3 g/dL (6.4-8.2)
[2022-04-01] MEDS: KLOR-CON PO SCH (08:49)
[2022-04-01] MEDS: MILK OF MAGNESIA PO SCH (08:50)
[2022-04-01] MEDS: MIRALAX POWDER (1 DOSE 17 G) PO SCH (08:51)
[2022-04-01] MEDS: INVanz INJ 1 GRAM VIAL 1 G in NS 100 ML IV 100 ML IV SCH (09:10)
[2022-04-01] MEDS: LOVENOX INJ 30 MG SYR SC SCH (09:13)
[2022-04-01] MEDS: ASPIRIN EC 81 MG PO SCH (09:15)
[2022-04-01] MEDS: SYNTHROID 25 mcg TAB PO SCH (09:16)
[2022-04-01] MEDS: EFFEXOR XR 75 MG CAP 24-HR PO SCH (09:16)
[2022-04-01] MEDS: PLAVIX PO SCH (09:16)
[2022-04-01] MEDS: HEMOCYTE-PLUS PO SCH (09:16)
[2022-04-01] MEDS: COREG TAB 12.5 MG PO SCH ×2 (09:16→21:52)
[2022-04-01] MEDS: ZAROXOLYN PO SCH (09:17)
[2022-04-01] MEDS: DIFLUCAN PO SCH (09:17)
[2022-04-01] MEDS: KEPPRA TAB 500 MG PO SCH ×2 (09:17→21:52)
[2022-04-01] MEDS: APRESOLINE TAB 25 MG PO SCH ×2 (09:17→21:52)
[2022-04-01] MEDS: ISOSORBIDE DINITRATE 5 MG PO SCH ×2 (09:17→21:52)
[2022-04-01] MEDS: XANAX PO SCH (09:17)
[2022-04-01] MEDS: FOLIC ACID TAB 1 MG PO SCH (09:17)
[2022-04-01] MEDS: COLACE CAP 100 MG PO SCH ×2 (09:18→21:52)
[2022-04-01] MEDS: NORVASC TAB 5 MG PO SCH ×2 (09:18→21:52)
[2022-04-01] MEDS: ARTIFICIAL TEARS DROPS OP SCH ×2 (09:18→21:53)
[2022-04-01] MEDS ORDERED: LASIX IVP ONE ×2 (10:16→23:22)
--- NOTE | 2022-04-01 12:12 | PCM.PROG ---
Progress Note Progress Note for Day of Date of Exam: 04/01/22 Subjective Subjective: PT IS A 67 YEAR OLD FEMALE ADMITTED FOR TREATMENT OF ACUTE EXACERBATION OF CHF, ACUTE ON CHRONIC RESPIRATORY FAILURE WITH HYPERCAPNIA, HYPERKALEMIA, ACUTE ON CHRONIC KIDNEY FAILURE, ELEVATED TROPONIN LEVELS, UTI, AND ANEMIA. ADDITIONALLY, SHE HAS A HISTORY OF COPD, DM II, HYPERLIPIDEMIA, AND CAD. THIS MORNING SHE IS ALERT, LYING IN BED ON MORNING ROUNDS. SHE IS ABLE TO FOLLOW COMMANDS. SHE IS CURRENTLY ON BIPAP SUPPORT. LABS WERE OBTAINED: WBC 5.6, HGB 9.1, PLT 220, NA 139, K 5.1, CREATININE 3.04, GLUCOSE 112, HER URINE CULTURE IS POSITIVE FOR GROWTH OF E.COLI AND E.COLI #2. SPUTUM CULTURE IS POSITIVE FOR GROWTH OF KLEBSIELLA PNEUMONIAE. A CHEST XRAY WAS OBTAINED AND REVEALED: Interv al increase in bilateral pulmonary edema. SHE IS CURRENTLY RECEIVING D5 NS AT 50 ML/HR, INVANZ 1G IV DAILY, DIFLUCAN 100MG PO DAILY, DUONEBS TID, OTBS ACHS, HUMULIN R SLIDING SCALE, MORPHINE 1MG IV Q4H FOR PAIN AND AIR HUNGER, AND HER HOME MEDICATIONS WERE RESUMED WITH THE EXCEPTION OF HER LASIX. CONTINUE USE OF THE BIPAP DUE TO RESPIRATORY FAILURE WITH HYPERCAPNIA. WILL ORDER IV LASIX 40MG X 1 DUE TO WORSENING PULMONARY EDEMA. OTHERWISE, WE WILL FOLLOW-UP WITH AM LABS AND CHEST XRAY AND CONTINUE TO MONITOR. Time spent on clinical assessment, reviewing labs and imaging, decision making, and documentation greater than 45 minutes. Past Medical Family Social History Past Med/Fam/Surg Hx: No changes since H&P Allergies: Allergies Sulfa (Sulfonamide Antibiotics) [SULFA] Allergy (Verified 10/31/21 18:43) ciprofloxacin [From Cipro] Adverse Reaction (Verified 10/31/21 18:43) Review of Systems ROS: No change since H&P ROS changes noted: SEE HPI Vital Signs and I&O's Vital Signs: Temperature 97.8 F Pulse Rate [Left Brachial] 57 Pulse Rate 67 Respiratory Rate 20 Blood Pressure [Right Arm] 126/58 Blood Pressure [Left Arm] 140/68 Blood Pressure 135/61 O2 Sat by Pulse Oximetry 97 Intake and Output: Intake & Output 03/29/22 03/30/22 03/31/22 04/01/22 23:59 23:59 23:59 23:59 Intake Total 810 / 810 1590 / 1590 2045 / 2045 500 / 500 Output Total 875 / 875 300 / 300 850 / 850 330 / 330 Balance -65 / -65 1290 / 1290 1195 / 1195 170 / 170 Physical Exam Oriented: Normal Eyes: Normal Ear: Normal Nose: Normal Throat: Normal Respiratory: Generalized, Diminished and Rhonchi Cardiovascular: Normal : Normal Auscultation: Bowel Sounds: Normal Tenderness: Normal Skin: Normal Musculoskeletal: Right, Left, Knee, Back:Lumbar and Tender Psychiatric: Normal Mood Description: Calm Affect: Normal Speech Pattern: Clear and Appropriate Laboratory and Diagnostics Result Diagrams: 04/01/22 06:46 04/01/22 06:46 Labs: 03/29/22 11:00 Sputum - Expectorated Sputum Sputum Culture - Preliminary Klebsiella Pneumoniae 03/29/22 11:00 Sputum - Expectorated Sputum - Final 03/27/22 20:00 Urine,Catheterized Urine Culture - Final Escherichia Coli Escherichia Coli#2 Laboratory WBC 5.6 X10^3/uL (3.6-10.0) 04/01/22 06:46 RBC 2.88 X10^6/uL (3.5-5.4) L 04/01/22 06:46 Hgb 9.1 g/dL (12.0-16.0) L 04/01/22 06:46 Hct 29.1 % (36.0-47.0) L 04/01/22 06:46 MCV 101.2 fL (80.0-100.0) H 04/01/22 06:46 MCH 31.5 pg (27.0-34.0) 04/01/22 06:46 MCHC 31.1 g/dL (33.0-35.0) L 04/01/22 06:46 RDW 19.6 % (11.6-16.5) H 04/01/22 06:46 Plt Count 220 X10^3/uL (150.0-450.0) 04/01/22 06:46 MPV 7.2 fL (7.4-11.0) L 04/01/22 06:46 Neut % (Auto) 67.5 % (42.0-75.0) 04/01/22 06:46 Lymph % (Auto) 18.7 % (21.0-51.0) L 04/01/22 06:46 [place] % (Auto) 7.4 % (0.0-13.0) 04/01/22 06:46 Eos % (Auto) 5.9 % (0.9-2.9) H 04/01/22 06:46 Baso % (Auto) 0.5 % (0.2-1.0) 04/01/22 06:46 Neut # (Auto) 3.8 x10^3/uL (2.2-4.8) 04/01/22 06:46 Lymph # (Auto) 1.0 X10^3/uL (1.3-2.9) L 04/01/22 06:46 [place] # (Auto) 0.4 x10^3/uL (0.3-0.8) 04/01/22 06:46 Eos # (Auto) 0.3 x10^3/uL (0.0-0.2) H 04/01/22 06:46 Baso # (Auto) 0.0 X10^3/uL (0.0-0.1) 04/01/22 06:46 Absolute Nucleated RBC 0.1 /100WBC 04/01/22 06:46 Sample Site Rrad 03/29/22 10:53 ABG pH 7.280 (7.35-7.45) L 03/29/22 10:53 ABG pCO2 67.0 mmHg (35.0-45.0) H* 03/29/22 10:53 ABG pO2 82.0 mmHg (80.0-100.0) 03/29/22 10:53 ABG HCO3 31.5 mmol/L (22-26) H* 03/29/22 10:53 ABG O2 Saturation 94.0 % (90-100) 03/29/22 10:53 ABG Base Excess 3.0 mmol/L (-2.0-2.0) H 03/29/22 10:53 Kevin Test Pos 03/29/22 10:53 A-a Gradient 162.0 mmHg 03/29/22 10:53 FiO2 46.0 03/29/22 10:53 Blood Gas Comments Pt shayy well elj cdn 03/29/22 10:53 Sodium 139 mmol/L (136-145) 04/01/22 06:46 Corrected Sodium 139 mmol/L (136-145) 04/01/22 06:46 Potassium 5.1 mmol/L (3.5-5.1) 04/01/22 06:46 Chloride 106 mmol/L (98-107) 04/01/22 06:46 Carbon Dioxide 30.4 mmol/L (21-32) 04/01/22 06:46 BUN 58 mg/dL (7-18) H 04/01/22 06:46 Creatinine 3.04 mg/dL (0.55-1.02) H 04/01/22 06:46 Est GFR (MDRD) Af Amer 20 (>60) L 04/01/22 06:46 Est GFR (MDRD) Non-Af 16 (>60) L 04/01/22 06:46 Glucose 112 mg/dL (65-99) H 04/01/22 06:46 POC Glucose (mg/dL) 102 mg/dL (65-99) H 04/01/22 11:10 Calcium 9.6 mg/dL (8.5-10.1) 04/01/22 06:46 Corrected Calcium 11.0 mg/dL (8.5-10.1) H 04/01/22 06:46 Total Bilirubin 0.30 mg/dL (0.2-1.0) 04/01/22 06:46 AST 7 Units/L (15-37) L 04/01/22 06:46 ALT 10 Units/L (12-78) L 04/01/22 06:46 Alkaline Phosphatase 85 Units/L (46-116) 04/01/22 06:46 Creatine Kinase 16 Units/L (26-192) L 03/28/22 16:28 Troponin I High Sens 153.3 ng/L (4.0-60.0) H* 03/29/22 08:59 B-Natriuretic Peptide 965 pg/mL (0-79) H* 04/01/22 06:46 Total Protein 6.3 g/dL (6.4-8.2) L 04/01/22 06:46 Albumin 2.2 g/dL (3.4-5.0) L 04/01/22 06:46 Globulin 4.1 g/dL (2.5-4.5) 04/01/22 06:46 Albumin/Globulin Ratio 0.5 Ratio (1.1-2.1) L 04/01/22 06:46 Specimen Type Catherized urine 03/27/22 20:00 Urine Color Yellow (YELLOW) 03/27/22 20:00 Urine Appearance Hazy (CLEAR) 03/27/22 20:00 Urine pH 5.0 (5.0 - 8.0) 03/27/22 20:00 Ur Specific [place] 1.020 (1.000-1.030) 03/27/22 20:00 Urine Protein 3+ (NEGATIVE) 03/27/22 20:00 Urine Glucose (UA) Negative (NEGATIVE) 03/27/22 20: Urine Ketones Negative (NEGATIVE) 03/27/22 20: Urine Blood 4+ (NEGATIVE) 03/27/22 20: Urine Nitrite Negative (NEGATIVE) 03/27/22 20: Urine Bilirubin Negative (NEGATIVE) 03/27/22 20:00 Urine Urobilinogen Normal (NORMAL) 03/27/22 20:00 Ur Leukocyte Esterase 3+ (NEGATIVE) 03/27/22 20:00 Urine RBC 10-20 /HPF (0-3) A 03/27/22 20:00 Urine WBC 20-30 /HPF (0-5) A 03/27/22 20:00 Ur Squamous Epith Cells Few /HPF (NEGATIVE) 03/27/22 20:00 Ur Renal Epithelial Cell Few /HPF (NEGATIVE) 03/27/22 20:00 Urine Bacteria 3+ /HPF (NEGATIVE) 03/27/22 20:00 Urine Mucus Few /HPF (NEGATIVE) 03/27/22 20:00 Urine Yeast Numerous /HPF (NEGATIVE) 03/27/22 20:00 Ur Culture Indicated? Yes/culture set up 03/27/22 20:00 Resp Viral Panel (PCR) See scanned report 03/28/22 14:12 Plan (1) Acute exacerbation of CHF (congestive heart failure): Status: Acute Qualifiers: Heart failure type: unspecified Plan: SUPPLEMENTAL OXYGEN, BIPAP, D5NS AT 50 ML/HR, INVANZ 1G IV DAILY, DIFLUCAN 100MG DAILY, DUONEBS TID, MORPHINE 1MG IV Q4H, OTBS ACHS, HUMULIN R SLIDING SCALE, AND WE WILL RESUME HER HOME MEDICATIONS WITH THE EXCEPTION OF HER LASIX DUE TO RENAL FAILURE. FOLLOW-UP WITH AM LABS AND CHEST XRAY (2) Respiratory failure with hypoxia and hypercapnia: Status: Acute Qualifiers: Chronicity: acute on chronic Qualified Code(s): J96.21 - Acute and chronic respiratory failure with hypoxia; J96.22 - Acute and chronic respiratory failure with hypercapnia; J96.22 - Acute and chronic respiratory failure with hypercapnia (3) Hyperkalemia: Status: Acute (4) Acute on chronic kidney failure: Status: Acute Qualifiers: Acute renal failure type: unspecified Chronic kidney disease stage: unspecified stage Qualified Code(s): N17.9 - Acute kidney failure, unspecified; N18.9 - Chronic kidney disease, unspecified (5) Elevated troponin: Status: Acute (6) Urinary tract infection: Status: Acute Qualifiers: Hematuria presence: with hematuria Urinary tract infection type: acute cystitis Qualified Code(s): N30.01 - Acute cystitis with hematuria (7) Anemia: Status: Chronic Qualifiers: Anemia type: iron deficiency Iron deficiency anemia type: chronic blood loss Qualified Code(s): D50.0 - Iron deficiency anemia secondary to blood loss (chronic) (8) COPD (chronic obstructive pulmonary disease): Status: Chronic Qualifiers: COPD type: COPD with acute exacerbation Qualified Code(s): J44.1 - Chronic obstructive pulmonary disease with (acute) exacerbation (9) Diabetes mellitus, type II: Status: Chronic Qualifiers: Chronic kidney disease stage: stage 4 (severe) Diabetes mellitus complication detail: with chronic kidney disease Diabetes mellitus complication status: with kidney complications Diabetes mellitus assistant terminal manager insulin use: with assistant terminal manager use Qualified Code(s): E11.22 - Type 2 diabetes mellitus with diabetic chronic kidney disease; N18.4 - Chronic kidney disease, stage 4 (severe); Z79.4 - computer terminal operator (current) use of insulin (10) Hyperlipidemia: Status: Chronic Qualifiers: Hyperlipidemia type: mixed hyperlipidemia Qualified Code(s): E78.2 - Mixed hyperlipidemia (11) CAD (coronary artery disease): Status: Chronic Qualifiers: Associated angina: unspecified whether angina present Coronary Disease- Associated Artery/Lesion type: [place] artery [place] vs. transplanted heart: [place] heart Qualified Code(s): I25.10 - Atherosclerotic heart disease of [place] coronary artery without angina pectoris
[2022-04-01] MEDS: SNACK - Diabetic Appropriate PO SCH (21:50)
[2022-04-01] MEDS: SEROquel TAB 25 mg PO SCH (21:52)
[2022-04-01] MEDS: LIPITOR TAB 40 MG PO SCH (21:52)
[2022-04-01] MEDS: LEVEMIR SC SCH (21:59)
[2022-04-02] MEDS: MORPHINE SULFATE INJ 2 MG INJ IVP SCH ×6 (00:54→19:40)
[2022-04-02] MEDS: D5 NS 1,000 ML IV 1,000 ML IV SCH ×2 (03:15→16:17)
[2022-04-02 05:45] LABS: ABG BASE EXCESS 1.8 mmol/L (-2.0-2.0)
[2022-04-02 05:48] LABS: ABG ALLEN TEST POS; ABG HCO3 30.5 mmol/L (22-26)
[2022-04-02] MEDS: DUONEB 0.5 MG/3 MG (3 mL) NEB SCH ×3 (06:00→20:25)
[2022-04-02 06:31] LABS: BASOPHILS % (AUTO) 0.7 % (0.2-1.0); EOSINOPHILS # (AUTO) 0.2 x10^3/uL (0.0-0.2); EOSINOPHILS % (AUTO) 4.5 % (0.9-2.9); HEMATOCRIT 27.6 % (36.0-47.0); HEMOGLOBIN 8.8 g/dL (12.0-16.0); LYMPHOCYTES # (AUTO) 1.1 X10^3/uL (1.3-2.9); LYMPHOCYTES % (AUTO) 21.7 % (21.0-51.0); MEAN CORPUSCULAR HEMOGLOBIN 32.1 pg (27.0-34.0); MEAN CORPUSCULAR HGB CONC 31.8 g/dL (33.0-35.0); MEAN CORPUSCULAR VOLUME 101.1 fL (80.0-100.0); MEAN PLATELET VOLUME 7.1 fL (7.4-11.0); MONOCYTES # (AUTO) 0.3 x10^3/uL (0.3-0.8); MONOCYTES % (AUTO) 5.7 % (0.0-13.0); NEUTROPHILS # (AUTO) 3.5 x10^3/uL (2.2-4.8); NEUTROPHILS % (AUTO) 67.4 % (42.0-75.0); RED BLOOD COUNT 2.73 X10^6/uL (3.5-5.4); RED CELL DISTRIBUTION WIDTH 18.8 % (11.6-16.5); WHITE BLOOD COUNT 5.2 X10^3/uL (3.6-10.0)
[2022-04-02 06:45] LABS: ALANINE AMINOTRANSFERASE 7 Units/L (12-78); ALKALINE PHOSPHATASE 83 Units/L (46-116); ASPARTATE AMINO TRANSFERASE 9 Units/L (15-37); BLOOD UREA NITROGEN 57 mg/dL (7-18); CALCIUM 9.6 mg/dL (8.5-10.1); CARBON DIOXIDE 28.9 mmol/L (21-32); CHLORIDE 108 mmol/L (98-107); COR CA(FOR HYPOALB) 11.2 mg/dL (8.5-10.1); CREATININE 3.19 mg/dL (0.55-1.02); SODIUM 141 mmol/L (136-145); TOTAL PROTEIN 5.8 g/dL (6.4-8.2); eGFR NON BLACK RACES 16 (>60)
--- NOTE | 2022-04-02 06:57 | RAD ---
HISTORYSOBSTUDYAP chestCOMPARISONFebruary 2022FINDINGSCardiomegaly with bilateral confluent airspace disease. There is no additional consolidation, complicating pneumothorax or other extrapulmonary air.IMPRESSIONStable cardiomegaly and bilateral pulmonary edema.Electronically signed by: JERRY REY (Apr 02, 2022 06:56:02)
[2022-04-02] MEDS: LOVENOX INJ 30 MG SYR SC SCH (09:41)
[2022-04-02] MEDS: COLACE CAP 100 MG PO SCH ×2 (09:43→20:20)
[2022-04-02] MEDS: KEPPRA TAB 500 MG PO SCH ×2 (09:43→20:20)
[2022-04-02] MEDS: XANAX PO SCH (09:43)
[2022-04-02] MEDS: ASPIRIN EC 81 MG PO SCH (09:43)
[2022-04-02] MEDS: SYNTHROID 25 mcg TAB PO SCH (09:43)
[2022-04-02] MEDS: NORVASC TAB 5 MG PO SCH ×2 (09:43→20:20)
[2022-04-02] MEDS: DIFLUCAN PO SCH (09:44)
[2022-04-02] MEDS: FOLIC ACID TAB 1 MG PO SCH (09:44)
[2022-04-02] MEDS: HEMOCYTE-PLUS PO SCH (09:44)
[2022-04-02] MEDS: ZAROXOLYN PO SCH (09:44)
[2022-04-02] MEDS: PLAVIX PO SCH (09:44)
[2022-04-02] MEDS: APRESOLINE TAB 25 MG PO SCH ×2 (09:44→20:20)
[2022-04-02] MEDS: EFFEXOR XR 75 MG CAP 24-HR PO SCH (09:45)
[2022-04-02] MEDS: COREG TAB 12.5 MG PO SCH ×2 (09:45→20:20)
[2022-04-02] MEDS: ISOSORBIDE DINITRATE 5 MG PO SCH ×2 (09:46→20:21)
[2022-04-02] MEDS: LASIX IVP SCH (09:46)
[2022-04-02] MEDS: INVanz INJ 1 GRAM VIAL 1 G in NS 100 ML IV 100 ML IV SCH (09:47)
[2022-04-02] MEDS: MILK OF MAGNESIA PO SCH (09:48)
[2022-04-02] MEDS: MIRALAX POWDER (1 DOSE 17 G) PO SCH (09:48)
[2022-04-02] MEDS: KLOR-CON PO SCH (09:50)
[2022-04-02] MEDS: ARTIFICIAL TEARS DROPS OP SCH ×2 (09:50→20:21)
--- NOTE | 2022-04-02 12:53 | PCM.PROG ---
Progress Note Progress Note for Day of Date of Exam: 04/02/22 Subjective Subjective: PT IS A 67 YEAR OLD FEMALE ADMITTED FOR TREATMENT OF ACUTE EXACERBATION OF CHF, ACUTE ON CHRONIC RESPIRATORY FAILURE WITH HYPERCAPNIA, HYPERKALEMIA, ACUTE ON CHRONIC KIDNEY FAILURE, ELEVATED TROPONIN LEVELS, UTI, AND ANEMIA. ADDITIONALLY, SHE HAS A HISTORY OF COPD, DM II, HYPERLIPIDEMIA, AND CAD. THIS MORNING SHE IS ALERT, LYING IN BED ON MORNING ROUNDS. SHE IS CURRENTLY ON HEATED HIGH FLOW OXYGEN. NO ACUTE EVENTS OVERNIGHT. LABS WERE OBTAINED: WBC 5.2, HGB 8.8, PLT 203, NA 141, K 5.1, CREATININE 3.19, GLUCOSE 74, HER URINE CULTURE IS POSITIVE FOR GROWTH OF E.COLI AND E.COLI #2. SPUTUM CULTURE IS POSITIVE FOR GROWTH OF KLEBSIELLA PNEUMONIAE. A CHEST XRAY WAS OBTAINED AND REVEALED: STABLE CARDIOMEGALY AND PULMONARY EDEMA. ABG: PH 7.26, PCO2 68, PO2 78, HCO3 30, O2SAT 93%. SHE IS CURRENTLY RECEIVING D5 NS AT 50 ML/HR, INVANZ 1G IV DAILY, DIFLUCAN 100MG PO DAILY, DUONEBS TID, OTBS ACHS, HUMULIN R SLIDING SCALE, MORPHINE 1MG IV Q4H FOR PAIN AND AIR HUNGER, AND HER HOME MEDICATIONS WERE RESUMED WITH THE EXCEPTION OF HER LASIX. WILL ORDER IV LASIX 40MG X 1 DUE TO PULMONARY EDEMA. OTHERWISE, WE WILL FOLLOW-UP WITH AM LABS AND CHEST XRAY AND CONTINUE TO MONITOR. Time spent on clinical assessment, reviewing labs and imaging, decision making, and documentation greater than 45 minutes. Past Medical Family Social History Past Med/Fam/Surg Hx: No changes since H&P Allergies: Allergies Sulfa (Sulfonamide Antibiotics) [SULFA] Allergy (Verified 10/31/21 18:43) ciprofloxacin [From Cipro] Adverse Reaction (Verified 10/31/21 18:43) Review of Systems ROS: No change since H&P Vital Signs and I&O's Vital Signs: Temperature 97.8 F Pulse Rate [Left Brachial] 57 Pulse Rate 56 Respiratory Rate 22 Blood Pressure [Right Arm] 113/56 Blood Pressure [Left Arm] 140/68 Blood Pressure 135/61 O2 Sat by Pulse Oximetry 100 Intake and Output: Intake & Output 03/30/22 03/31/22 04/01/22 04/02/22 23:59 23:59 23:59 23:59 Intake Total 1590 / 1590 2045 / 2045 194 / 194 Output Total 300 / 300 850 / 850 745 / 745 350 / 350 Balance 1290 / 1290 1195 / 1195 1196 / 1196 -330 / -330 Physical Exam Oriented: Normal Eyes: Normal Ear: Normal Nose: Normal Throat: Normal Respiratory: Generalized, Diminished and Rhonchi Cardiovascular: Normal : Normal Auscultation: Bowel Sounds: Normal Tenderness: Normal Skin: Normal Musculoskeletal: Right, Left, Knee, Back:Lumbar and Tender Psychiatric: Normal Mood Description: Calm Affect: Normal Speech Pattern: Appropriate and Unclear Laboratory and Diagnostics Result Diagrams: 04/02/22 05:10 04/02/22 05:10 Labs: 03/29/22 11:00 Sputum - Expectorated Sputum Sputum Culture - Preliminary Klebsiella Pneumoniae 03/29/22 11:00 Sputum - Expectorated Sputum - Final 03/27/22 20:00 Urine,Catheterized Urine Culture - Final Escherichia Coli Escherichia Coli#2 Laboratory WBC 5.2 X10^3/uL (3.6-10.0) 04/02/22 05:10 RBC 2.73 X10^6/uL (3.5-5.4) L 04/02/22 05:10 Hgb 8.8 g/dL (12.0-16.0) L 04/02/22 05:10 Hct 27.6 % (36.0-47.0) L 04/02/22 05:10 MCV 101.1 fL (80.0-100.0) H 04/02/22 05:10 MCH 32.1 pg (27.0-34.0) 04/02/22 05:10 MCHC 31.8 g/dL (33.0-35.0) L 04/02/22 05:10 RDW 18.8 % (11.6-16.5) H 04/02/22 05:10 Plt Count 203 X10^3/uL (150.0-450.0) 04/02/22 05:10 MPV 7.1 fL (7.4-11.0) L 04/02/22 05:10 Neut % (Auto) 67.4 % (42.0-75.0) 04/02/22 05:10 Lymph % (Auto) 21.7 % (21.0-51.0) 04/02/22 05:10 [place] % (Auto) 5.7 % (0.0-13.0) 04/02/22 05:10 Eos % (Auto) 4.5 % (0.9-2.9) H 04/02/22 05:10 Baso % (Auto) 0.7 % (0.2-1.0) 04/02/22 05:10 Neut # (Auto) 3.5 x10^3/uL (2.2-4.8) 04/02/22 05:10 Lymph # (Auto) 1.1 X10^3/uL (1.3-2.9) L 04/02/22 05:10 [place] # (Auto) 0.3 x10^3/uL (0.3-0.8) 04/02/22 05:10 Eos # (Auto) 0.2 x10^3/uL (0.0-0.2) 04/02/22 05:10 Baso # (Auto) 0.0 X10^3/uL (0.0-0.1) 04/02/22 05:10 Absolute Nucleated RBC 0.1 /100WBC 04/02/22 05:10 Sample Site R rad 04/02/22 05:00 ABG pH 7.260 (7.35-7.45) L 04/02/22 05:00 ABG pCO2 68.0 mmHg (35.0-45.0) H* 04/02/22 05:00 ABG pO2 78.0 mmHg (80.0-100.0) L 04/02/22 05:00 ABG HCO3 30.5 mmol/L (22-26) H* 04/02/22 05:00 ABG O2 Saturation 93.0 % (90-100) 04/02/22 05:00 ABG Base Excess 1.8 mmol/L (-2.0-2.0) 04/02/22 05:00 Kevin Test Pos 04/02/22 05:00 A-a Gradient 194.0 mmHg 04/02/22 05:00 FiO2 50.0 04/02/22 05:00 Blood Gas Comments Surinder well 04/02/22 05:00 Sodium 141 mmol/L (136-145) 04/02/22 05:10 Corrected Sodium TNP 04/02/22 05:10 Potassium 5.1 mmol/L (3.5-5.1) 04/02/22 05:10 Chloride 108 mmol/L (98-107) H 04/02/22 05:10 Carbon Dioxide 28.9 mmol/L (21-32) 04/02/22 05:10 BUN 57 mg/dL (7-18) H 04/02/22 05:10 Creatinine 3.19 mg/dL (0.55-1.02) H 04/02/22 05:10 Est GFR (MDRD) Af Amer 19 (>60) L 04/02/22 05:10 Est GFR (MDRD) Non-Af 16 (>60) L 04/02/22 05:10 Glucose 74 mg/dL (65-99) 04/02/22 05:10 POC Glucose (mg/dL) 80 mg/dL (65-99) 04/02/22 11:44 Calcium 9.6 mg/dL (8.5-10.1) 04/02/22 05:10 Corrected Calcium 11.2 mg/dL (8.5-10.1) H 04/02/22 05:10 Total Bilirubin 0.20 mg/dL (0.2-1.0) 04/02/22 05:10 AST 9 Units/L (15-37) L 04/02/22 05:10 ALT 7 Units/L (12-78) L 04/02/22 05:10 Alkaline Phosphatase 83 Units/L (46-116) 04/02/22 05:10 Creatine Kinase 16 Units/L (26-192) L 03/28/22 16:28 Troponin I High Sens 153.3 ng/L (4.0-60.0) H* 03/29/22 08:59 B-Natriuretic Peptide 600 pg/mL (0-79) H* 04/02/22 05:10 Total Protein 5.8 g/dL (6.4-8.2) L 04/02/22 05:10 Albumin 2.0 g/dL (3.4-5.0) L 04/02/22 05:10 Globulin 3.8 g/dL (2.5-4.5) 04/02/22 05:10 Albumin/Globulin Ratio 0.5 Ratio (1.1-2.1) L 04/02/22 05:10 Specimen Type Catherized urine 03/27/22 20:00 Urine Color Yellow (YELLOW) 03/27/22 20: Urine Appearance Hazy (CLEAR) 03/27/22 20:00 Urine pH 5.0 (5.0 - 8.0) 03/27/22 20:00 Ur Specific [place] 1.020 (1.000-1.030) 03/27/22 20:00 Urine Protein 3+ (NEGATIVE) 03/27/22 20:00 Urine Glucose (UA) Negative (NEGATIVE) 03/27/22 20:00 Urine Ketones Negative (NEGATIVE) 03/27/22 20: Urine Blood 4+ (NEGATIVE) 03/27/22 20: Urine Nitrite Negative (NEGATIVE) 03/27/22 20:00 Urine Bilirubin Negative (NEGATIVE) 03/27/22 20:00 Urine Urobilinogen Normal (NORMAL) 03/27/22 20:00 Ur Leukocyte Esterase 3+ (NEGATIVE) 03/27/22 20:00 Urine RBC 10-20 /HPF (0-3) A 03/27/22 20:00 Urine WBC 20-30 /HPF (0-5) A 03/27/22 20:00 Ur Squamous Epith Cells Few /HPF (NEGATIVE) 03/27/22 20:00 Ur Renal Epithelial Cell Few /HPF (NEGATIVE) 03/27/22 20:00 Urine Bacteria 3+ /HPF (NEGATIVE) 03/27/22 20:00 Urine Mucus Few /HPF (NEGATIVE) 03/27/22 20:00 Urine Yeast Numerous /HPF (NEGATIVE) 03/27/22 20:00 Ur Culture Indicated? Yes/culture set up 03/27/22 20:00 Resp Viral Panel (PCR) See scanned report 03/28/22 14:12 Plan (1) Acute exacerbation of CHF (congestive heart failure): Status: Acute Qualifiers: Heart failure type: unspecified Plan: SUPPLEMENTAL OXYGEN, BIPAP, D5NS AT 50 ML/HR, INVANZ 1G IV DAILY, DIFLUCAN 100MG DAILY, DUONEBS TID, MORPHINE 1MG IV Q4H, OTBS ACHS, HUMULIN R SLIDING SCALE, AND WE WILL RESUME HER HOME MEDICATIONS WITH THE EXCEPTION OF HER LASIX DUE TO RENAL FAILURE. FOLLOW-UP WITH AM LABS AND CHEST XRAY (2) Respiratory failure with hypoxia and hypercapnia: Status: Acute Qualifiers: Chronicity: acute on chronic Qualified Code(s): J96.21 - Acute and chronic respiratory failure with hypoxia; J96.22 - Acute and chronic respiratory failure with hypercapnia; J96.22 - Acute and chronic respiratory failure with hypercapnia (3) Hyperkalemia: Status: Acute (4) Acute on chronic kidney failure: Status: Acute Qualifiers: Acute renal failure type: unspecified Chronic kidney disease stage: unspecified stage Qualified Code(s): N17.9 - Acute kidney failure, unspecified; N18.9 - Chronic kidney disease, unspecified (5) Elevated troponin: Status: Acute (6) Urinary tract infection: Status: Acute Qualifiers: Hematuria presence: with hematuria Urinary tract infection type: acute cystitis Qualified Code(s): N30.01 - Acute cystitis with hematuria (7) Anemia: Status: Chronic Qualifiers: Anemia type: iron deficiency Iron deficiency anemia type: chronic blood loss Qualified Code(s): D50.0 - Iron deficiency anemia secondary to blood loss (chronic) (8) COPD (chronic obstructive pulmonary disease): Status: Chronic Qualifiers: COPD type: COPD with acute exacerbation Qualified Code(s): J44.1 - Chr onic obstructive pulmonary disease with (acute) exacerbation (9) Diabetes mellitus, type II: Status: Chronic Qualifiers: Chronic kidney disease stage: stage 4 (severe) Diabetes mellitus complication detail: with chronic kidney disease Diabetes mellitus complication status: with kidney complications Diabetes mellitus predatory animal exterminator insulin use: with predatory animal exterminator use Qualified Code(s): E11.22 - Type 2 diabetes mellitus with diabetic chronic kidney disease; N18.4 - Chronic kidney disease, stage 4 (severe); Z79.4 - group home (current) use of insulin (10) Hyperlipidemia: Status: Chronic Qualifiers: Hyperlipidemia type: mixed hyperlipidemia Qualified Code(s): E78.2 - Mixed hyperlipidemia (11) CAD (coronary artery disease): Status: Chronic Qualifiers: Associated angina: unspecified whether angina present Coronary Disease- Associated Artery/Lesion type: [place] artery [place] vs. transplanted heart: [place] heart Qualified Code(s): I25.10 - Atherosclerotic heart disease of [place] coronary artery without angina pectoris
[2022-04-02] MEDS: SNACK - Diabetic Appropriate PO SCH (19:40)
[2022-04-02] MEDS: LIPITOR TAB 40 MG PO SCH (20:20)
[2022-04-02] MEDS: SEROquel TAB 25 mg PO SCH (20:21)
[2022-04-02] MEDS: LEVEMIR SC SCH (20:41)
[2022-04-03] MEDS: MORPHINE SULFATE INJ 2 MG INJ IVP SCH ×6 (00:03→20:25)
[2022-04-03] MEDS: DUONEB 0.5 MG/3 MG (3 mL) NEB SCH ×3 (05:00→21:05)
[2022-04-03] MEDS: D5 NS 1,000 ML IV 1,000 ML IV SCH ×2 (05:16→17:30)
[2022-04-03 06:29] LABS: BASOPHILS % (AUTO) 0.8 % (0.2-1.0); EOSINOPHILS # (AUTO) 0.2 x10^3/uL (0.0-0.2); EOSINOPHILS % (AUTO) 4.3 % (0.9-2.9); HEMATOCRIT 26.9 % (36.0-47.0); HEMOGLOBIN 8.5 g/dL (12.0-16.0); LYMPHOCYTES # (AUTO) 1.1 X10^3/uL (1.3-2.9); LYMPHOCYTES % (AUTO) 21.8 % (21.0-51.0); MEAN CORPUSCULAR HEMOGLOBIN 31.6 pg (27.0-34.0); MEAN CORPUSCULAR HGB CONC 31.4 g/dL (33.0-35.0); MEAN CORPUSCULAR VOLUME 100.8 fL (80.0-100.0); MEAN PLATELET VOLUME 7.4 fL (7.4-11.0); MONOCYTES # (AUTO) 0.4 x10^3/uL (0.3-0.8); MONOCYTES % (AUTO) 7.1 % (0.0-13.0); NEUTROPHILS # (AUTO) 3.4 x10^3/uL (2.2-4.8); RED BLOOD COUNT 2.67 X10^6/uL (3.5-5.4); RED CELL DISTRIBUTION WIDTH 19.2 % (11.6-16.5); WHITE BLOOD COUNT 5.1 X10^3/uL (3.6-10.0)
[2022-04-03 06:39] LABS: ALANINE AMINOTRANSFERASE 6 Units/L (12-78); ALKALINE PHOSPHATASE 83 Units/L (46-116); ASPARTATE AMINO TRANSFERASE 10 Units/L (15-37); BLOOD UREA NITROGEN 58 mg/dL (7-18); CALCIUM 9.8 mg/dL (8.5-10.1); CHLORIDE 108 mmol/L (98-107); COR CA(FOR HYPOALB) 11.4 mg/dL (8.5-10.1); CREATININE 3.24 mg/dL (0.55-1.02); SODIUM 140 mmol/L (136-145); TOTAL PROTEIN 5.8 g/dL (6.4-8.2); eGFR NON BLACK RACES 15 (>60)
[2022-04-03] MEDS: MIRALAX POWDER (1 DOSE 17 G) PO SCH (08:00)
[2022-04-03] MEDS: INVanz INJ 1 GRAM VIAL 1 G in NS 100 ML IV 100 ML IV SCH (08:00)
[2022-04-03] MEDS: LASIX IVP SCH (08:01)
[2022-04-03] MEDS: MILK OF MAGNESIA PO SCH (08:01)
[2022-04-03] MEDS: KLOR-CON PO SCH (08:01)
[2022-04-03] MEDS: LOVENOX INJ 30 MG SYR SC SCH (08:01)
[2022-04-03] MEDS: HEMOCYTE-PLUS PO SCH (08:02)
[2022-04-03] MEDS: COREG TAB 12.5 MG PO SCH ×2 (08:02→20:23)
[2022-04-03] MEDS: DIFLUCAN PO SCH (08:02)
[2022-04-03] MEDS: EFFEXOR XR 75 MG CAP 24-HR PO SCH (08:02)
[2022-04-03] MEDS: FOLIC ACID TAB 1 MG PO SCH (08:02)
[2022-04-03] MEDS: XANAX PO SCH (08:02)
[2022-04-03] MEDS: COLACE CAP 100 MG PO SCH ×2 (08:02→20:24)
[2022-04-03] MEDS: ZAROXOLYN PO SCH (08:02)
[2022-04-03] MEDS: KEPPRA TAB 500 MG PO SCH ×2 (08:02→20:24)
[2022-04-03] MEDS: NORVASC TAB 5 MG PO SCH ×2 (08:03→20:23)
[2022-04-03] MEDS: APRESOLINE TAB 25 MG PO SCH ×2 (08:03→20:21)
[2022-04-03] MEDS: SYNTHROID 25 mcg TAB PO SCH (08:03)
[2022-04-03] MEDS: ARTIFICIAL TEARS DROPS OP SCH ×2 (08:03→20:25)
[2022-04-03] MEDS: PLAVIX PO SCH (08:03)
[2022-04-03] MEDS: ASPIRIN EC 81 MG PO SCH (08:03)
[2022-04-03] MEDS: ISOSORBIDE DINITRATE 5 MG PO SCH ×2 (08:04→20:24)
--- NOTE | 2022-04-03 08:12 | RAD ---
HISTORYSOBSTUDYCHEST, 1 [id number]/26/2023.TECHNIQUEPA or AP view of the chestFINDINGSStatus post median sternotomy. Patient is rotated. The cardiac silhouette is stably enlarged. Mediastinal contours appear stable. Interval likely improvement in bilateral airspace opacities. No large pleural effusion. No discernible pneumothorax. Soft tissue attenuation from the chest wall significantly limits evaluation.IMPRESSIONSuspect interval improvement in airspace opacities bilaterally may represent improved pulmonary edema or pneumonia.Electronically signed by: Jackson Tan (Apr 03, 2022 08:11:15)
[2022-04-03] MEDS: LIPITOR TAB 40 MG PO SCH (20:21)
[2022-04-03] MEDS: SEROquel TAB 25 mg PO SCH (20:24)
[2022-04-03] MEDS: SNACK - Diabetic Appropriate PO SCH (20:25)
[2022-04-03] MEDS: LEVEMIR SC SCH (21:00)
[2022-04-04] MEDS: MORPHINE SULFATE INJ 2 MG INJ IVP SCH ×4 (04:00→09:56)
[2022-04-04] MEDS: DUONEB 0.5 MG/3 MG (3 mL) NEB SCH ×3 (06:03→21:00)
[2022-04-04] MEDS: D5 NS 1,000 ML IV 1,000 ML IV SCH ×2 (06:12→21:28)
[2022-04-04 06:17] LABS: BASOPHILS # (AUTO) 0.1 X10^3/uL (0.0-0.1); BASOPHILS % (AUTO) 1.1 % (0.2-1.0); EOSINOPHILS # (AUTO) 0.2 x10^3/uL (0.0-0.2); EOSINOPHILS % (AUTO) 4.3 % (0.9-2.9); HEMATOCRIT 28.5 % (36.0-47.0); HEMOGLOBIN 8.8 g/dL (12.0-16.0); LYMPHOCYTES # (AUTO) 1.2 X10^3/uL (1.3-2.9); LYMPHOCYTES % (AUTO) 25.3 % (21.0-51.0); MEAN CORPUSCULAR HEMOGLOBIN 31.9 pg (27.0-34.0); MEAN CORPUSCULAR VOLUME 102.9 fL (80.0-100.0); MEAN PLATELET VOLUME 7.8 fL (7.4-11.0); MONOCYTES # (AUTO) 0.3 x10^3/uL (0.3-0.8); MONOCYTES % (AUTO) 6.6 % (0.0-13.0); NEUTROPHILS # (AUTO) 2.9 x10^3/uL (2.2-4.8); NEUTROPHILS % (AUTO) 62.7 % (42.0-75.0); RED BLOOD COUNT 2.77 X10^6/uL (3.5-5.4); WHITE BLOOD COUNT 4.6 X10^3/uL (3.6-10.0)
[2022-04-04 06:25] LABS: ALANINE AMINOTRANSFERASE 6 Units/L (12-78); ALBUMIN 2.1 g/dL (3.4-5.0); ALKALINE PHOSPHATASE 87 Units/L (46-116); ASPARTATE AMINO TRANSFERASE 10 Units/L (15-37); BLOOD UREA NITROGEN 59 mg/dL (7-18); CALCIUM 9.8 mg/dL (8.5-10.1); CARBON DIOXIDE 28.3 mmol/L (21-32); CHLORIDE 107 mmol/L (98-107); COR CA(FOR HYPOALB) 11.3 mg/dL (8.5-10.1); CREATININE 3.32 mg/dL (0.55-1.02); SODIUM 140 mmol/L (136-145); eGFR NON BLACK RACES 15 (>60)
--- NOTE | 2022-04-04 07:45 | RAD ---
HISTORYSOBSTUDYCHEST, 1 [id number]/27/2023.TECHNIQUEPA or AP view of the chestFINDINGSStatus post median sternotomy and CABG. The cardiac silhouette is stably enlarged. Mediastinal contours appear stable. There is silhouetting of the left heart border with now near complete opacification of the left sanchez thorax. Similar appearing multifocal right lung airspace and interstitial opacity. Blunted right costophrenic sulcus. No leftward deviation of the trachea.IMPRESSIONNear complete opacification of the left sanchez thorax. There appears to be neutral positioning of the heart and mediastinum the can be seen with pneumonia or combination of atelectasis and pleural effusion. Similar appearing right lung airspace and interstitial opacities may represent pulmonary edema or pneumonia. Blunted right costophrenic sulcus can be seen with small pleural effusion or pleuro-parynchemal scarring.Electronically signed by: Jackson Tan (Apr 04, 2022 07:44:10)
[2022-04-04] MEDS: LOVENOX INJ 30 MG SYR SC SCH (09:49)
[2022-04-04] MEDS: COLACE CAP 100 MG PO SCH ×2 (09:51→21:27)
[2022-04-04] MEDS: HEMOCYTE-PLUS PO SCH (09:51)
[2022-04-04] MEDS: APRESOLINE TAB 25 MG PO SCH ×2 (09:51→21:18)
[2022-04-04] MEDS: MILK OF MAGNESIA PO SCH ×2 (09:51→10:09)
[2022-04-04] MEDS: COREG TAB 12.5 MG PO SCH ×2 (09:51→21:18)
[2022-04-04] MEDS: FOLIC ACID TAB 1 MG PO SCH (09:51)
[2022-04-04] MEDS: INVanz INJ 1 GRAM VIAL 1 G in NS 100 ML IV 100 ML IV SCH (09:51)
[2022-04-04] MEDS: NORVASC TAB 5 MG PO SCH ×2 (09:52→21:18)
[2022-04-04] MEDS: EFFEXOR XR 75 MG CAP 24-HR PO SCH (09:52)
[2022-04-04] MEDS: PLAVIX PO SCH (09:52)
[2022-04-04] MEDS: DIFLUCAN PO SCH (09:52)
[2022-04-04] MEDS: MIRALAX POWDER (1 DOSE 17 G) PO SCH (09:52)
[2022-04-04] MEDS: KEPPRA TAB 500 MG PO SCH ×2 (09:52→21:18)
[2022-04-04] MEDS: ZAROXOLYN PO SCH (09:52)
[2022-04-04] MEDS: XANAX PO SCH (09:52)
[2022-04-04] MEDS: SYNTHROID 25 mcg TAB PO SCH (09:52)
[2022-04-04] MEDS: ASPIRIN EC 81 MG PO SCH (09:52)
[2022-04-04] MEDS: ARTIFICIAL TEARS DROPS OP SCH ×2 (09:53→21:28)
[2022-04-04] MEDS: KLOR-CON PO SCH (11:28)
[2022-04-04] MEDS ORDERED: MORPHINE SULFATE INJ 2 MG INJ IVP PRN (11:32)
--- NOTE | 2022-04-04 11:41 | PCM.PROG ---
Progress Note - Progress Note for Day of Date of Exam: 04/03/22 - Subjective Subjective: IS CURRENTLY INPATIENT STATUS FOR TREATMENT OF ACUTE EXACERBATION OF CHF, PNEUMONIA, ACUTE ON CHRONIC RESPIRATORY FAILURE WITH HYPERCAPNIA, HYPERKALEMIA, ACUTE ON CHRONIC KIDNEY FAILURE, ELEVATED TROPONIN LEVELS, UTI, AND ANEMIA. ADDITIONALLY, SHE HAS A HISTORY OF COPD, DM II, HYPERL IPIDEMIA, AND CAD. TODAY, SHE IS ALERT, LYING IN BED ON MORNING ROUNDS. SHE IS ABLE TO FOLLOW COMMANDS. SHE COMPLAINS OF WEAKNESS AND SHORTNESS OF BREATH THIS MORNING. SHE ALSO REPORTS HAVING A PRODUCTIVE COUGH AND LOW BACK PAIN. SHE IS CURRENTLY UTILIZING HEATED HIGH FLOW OXYGEN. SHE WAS NOT ABLE TO TOLERATE WEARING THE BIPAP MUCH THROUGHOUT THE NIGHT. THE NURSING STAFF REPORTS THAT HER OXYGEN SATURATIONS HAVE REMAINED IN THE 90s WHILE ON HEATED HIGH FLOW OXYGEN. ON EXAMINATION TODAY, HEART IS REGULAR IN RATE AND RHYTHM. BILATERAL LUNGS ARE NOTED WITH RHONCHI THROUGHOUT. ABDOMEN IS ROUND, SOFT, AND NON-TENDER WITH NORMAL BOWEL SOUNDS NOTED IN ALL QUADRANTS. CARY CATHETER IS NOTED TO BEDSIDE DRAINAGE. GOOD MOVEMENT NOTED IN ALL EXTREMITIES. TRACE LOWER EXTREMITY EDEMA NOTED. HER VITALS THIS MORNING ARE: 98.8-52-16-94%-113/55. HEATED HIGH FLOW OXYGEN WITH FI02 AT 50% THIS MORNING. LABS WERE OBTAINED. WBC 5.1, RBC 2.67, HGB 8.5, HCT 26.9, PLT COUNT 181, SODIUM 140, POTASSIUM 5.4, CHLORIDE 108, BUN 58, CREATININE 3.24, GLUCOSE 64, CALCIUM 9.8, AST 10, ALT 6, ALK PHOS 83, BNP 896, TOTAL PROTEIN 5.8, ALBUMIN 2.0. HER URINE CULTURE IS POSITIVE FOR GROWTH OF E.COLI AND E.COLI #2. SPUTUM CULTURE IS POSITIVE FOR GROWTH OF KLEBSIELLA PNEUMONIAE. A CHEST XRAY WAS OBTAINED AND REVEALED: Suspect interval improvement in airspace opacities bilaterally may represent improved pulmonary edema or pneumonia. SHE IS CURRENTLY RECEIVING D5NS AT 50 ML/HR, INVANZ 1G IV DAILY, DIFLUCAN 100MG PO DAILY, DUONEBS TID, OTBS ACHS, HUMULIN R SLIDING SCALE, MORPHINE 1MG IV Q4H PRN PAIN, AND HER HOME MEDICATIONS WERE RESUMED WITH THE EXCEPTION OF HER LASIX. WE ENCOURAGED THE CONTINUED USE OF THE BIPAP DUE TO RESPIRATORY FAILURE WITH HYPERCAPNIA. WE WILL CONTINUE WITH CURRENT PLAN OF CARE TODAY. OTHERWISE, WE WILL FOLLOW-UP WITH AM LABS AND CHEST XRAY AND CONTINUE TO MONITOR. TIME SPENT ON CLINICAL ASSESSMENT, REVIWING LABS AND IMAGING, DECISION MAKING, AND DOCUMENTATION GREATER THAN 45 MINUTES. - Past Medical Family Social History Past Med/Fam/Surg Hx: No changes since H&P Allergies: Allergies Sulfa (Sulfonamide Antibiotics) [SULFA] Allergy (Verified 10/31/21 18:43) ciprofloxacin [From Cipro] Adverse Reaction (Verified 10/31/21 18:43) - Review of Systems ROS: No change since H&P - Vital Signs and I&O's Vital Signs: Temperature 98.7 F Pulse Rate [Left Brachial] 52 Pulse Rate 76 Respiratory Rate 20 Blood Pressure [Right Arm] 114/57 Blood Pressure [Left Arm] 116/56 Blood Pressure 135/61 O2 Sat by Pulse Oximetry 97 Intake and Output: Intake & Output 04/01/22 04/02/22 04/03/22 04/04/22 11:59 11:59 11:59 11:59 Intake Total 1560 / 1560 1461 / 1461 609 / 609 690 / 690 Output Total 630 / 630 765 / 765 525 / 525 485 / 485 Balance 930 / 930 696 / 696 84 / 84 205 / 205 - Physical Exam Oriented: Normal Eyes: Normal Ear: Normal Nose: Normal Throat: Normal Respiratory: Generalized, Diminished, Rhonchi Cardiovascular: Normal : Normal Auscultation: Bowel Sounds: Normal Tenderness: Normal Skin: Normal Musculoskeletal: Right, Left, Knee, Back:Lumbar, Tender Psychiatric: Normal Mood Description: Calm Affect: Normal Speech Pattern: Clear, Appropriate - Laboratory and Diagnostics Result Diagrams: 04/04/22 05:05 04/04/22 05:05 Labs: 03/29/22 11:00 Sputum - Expectorated Sputum Sputum Culture - Final Klebsiella Pneumoniae 03/29/22 11:00 Sputum - Expectorated Sputum - Final 03/27/22 20:00 Urine,Catheterized Urine Culture - Final Escherichia Coli Escherichia Coli#2 Laboratory WBC 4.6 X10^3/uL (3.6-10.0) 04/04/22 05:05 RBC 2.77 X10^6/uL (3.5-5.4) L 04/04/22 05:05 Hgb 8.8 g/dL (12.0-16.0) L 04/04/22 05:05 Hct 28.5 % (36.0-47.0) L 04/04/22 05:05 MCV 102.9 fL (80.0-100.0) H 04/04/22 05:05 MCH 31.9 pg (27.0-34.0) 04/04/22 05:05 MCHC 31.0 g/dL (33.0-35.0) L 04/04/22 05:05 RDW 19.0 % (11.6-16.5) H 04/04/22 05:05 Plt Count 186 X10^3/uL (150.0-450.0) 04/04/22 05:05 MPV 7.8 fL (7.4-11.0) 04/04/22 05:05 Neut % (Auto) 62.7 % (42.0-75.0) 04/04/22 05:05 Lymph % (Auto) 25.3 % (21.0-51.0) 04/04/22 05:05 [place] % (Auto) 6.6 % (0.0-13.0) 04/04/22 05:05 Eos % (Auto) 4.3 % (0.9-2.9) H 04/04/22 05:05 Baso % (Auto) 1.1 % (0.2-1.0) H 04/04/22 05:05 Neut # (Auto) 2.9 x10^3/uL (2.2-4.8) 04/04/22 05:05 Lymph # (Auto) 1.2 X10^3/uL (1.3-2.9) L 04/04/22 05:05 [place] # (Auto) 0.3 x10^3/uL (0.3-0.8) 04/04/22 05:05 Eos # (Auto) 0.2 x10^3/uL (0.0-0.2) 04/04/22 05:05 Baso # (Auto) 0.1 X10^3/uL (0.0-0.1) 04/04/22 05:05 Absolute Nucleated RBC 0.1 /100WBC 04/04/22 05:05 Sample Site R rad 04/02/22 05:00 ABG pH 7.260 (7.35-7.45) L 04/02/22 05:00 ABG pCO2 68.0 mmHg (35.0-45.0) H* 04/02/22 05:00 ABG pO2 78.0 mmHg (80.0-100.0) L 04/02/22 05:00 ABG HCO3 30.5 mmol/L (22-26) H* 04/02/22 05:00 ABG O2 Saturation 93.0 % (90-100) 04/02/22 05:00 ABG Base Excess 1.8 mmol/L (-2.0-2.0) 04/02/22 05:00 Kevin Test Pos 04/02/22 05:00 A-a Gradient 194.0 mmHg 04/02/22 05:00 FiO2 50.0 04/02/22 05:00 Blood Gas Comments Surinder well 04/02/22 05:00 Sodium 140 mmol/L (136-145) 04/04/22 05:05 Corrected Sodium TNP 04/04/22 05:05 Potassium 5.4 mmol/L (3.5-5.1) H 04/04/22 05:05 Chloride 107 mmol/L (98-107) 04/04/22 05:05 Carbon Dioxide 28.3 mmol/L (21-32) 04/04/22 05:05 BUN 59 mg/dL (7-18) H 04/04/22 05:05 Creatinine 3.32 mg/dL (0.55-1.02) H 04/04/22 05:05 Est GFR (MDRD) Af Amer 18 (>60) L 04/04/22 05:05 Est GFR (MDRD) Non-Af 15 (>60) L 04/04/22 05:05 Glucose 68 mg/dL (65-99) 04/04/22 05:05 POC Glucose (mg/dL) 65 mg/dL (65-99) 04/04/22 05:57 Calcium 9.8 mg/dL (8.5-10.1) 04/04/22 05:05 Corrected Calcium 11.3 mg/dL (8.5-10.1) H 04/04/22 05:05 Total Bilirubin 0.30 mg/dL (0.2-1.0) 04/04/22 05:05 AST 10 Units/L (15-37) L 04/04/22 05:05 ALT 6 Units/L (12-78) L 04/04/22 05:05 Alkaline Phosphatase 87 Units/L (46-116) 04/04/22 05:05 Creatine Kinase 16 Units/L (26-192) L 03/28/22 16:28 Troponin I High Sens 153.3 ng/L (4.0-60.0) H* 03/29/22 08:59 B-Natriuretic Peptide 854 pg/mL (0-79) H* 04/04/22 05:05 Total Protein 6.0 g/dL (6.4-8.2) L 04/04/22 05:05 Albumin 2.1 g/dL (3.4-5.0) L 04/04/22 05:05 Globulin 3.9 g/dL (2.5-4.5) 04/04/22 05:05 Albumin/Globulin Ratio 0.5 Ratio (1.1-2.1) L 04/04/22 05:05 Specimen Type Catherized urine 03/27/22 20:00 Urine Color Yellow (YELLOW) 03/27/22 20:00 Urine Appearance Hazy (CLEAR) 03/27/22 20:00 Urine pH 5.0 (5.0 - 8.0) 03/27/22 20:00 Ur Specific [place] 1.020 (1.000-1.030) 03/27/22 20:00 Urine Protein 3+ (NEGATIVE) 03/27/22 20:00 Urine Glucose (UA) Negative (NEGATIVE) 03/27/22 20:00 Urine Ketones Negative (NEGATIVE) 03/27/22 20:00 Urine Blood 4+ (NEGATIVE) 03/27/22 20:00 Urine Nitrite Negative (NEGATIVE) 03/27/22 20:00 Urine Bilirubin Negative (NEGATIVE) 03/27/22 20:00 Urine Urobilinogen Normal (NORMAL) 03/27/22 20:00 Ur Leukocyte Esterase 3+ (NEGATIVE) 03/27/22 20:00 Urine RBC 10-20 /HPF (0-3) A 03/27/22 20:00 Urine WBC 20-30 /HPF (0-5) A 03/27/22 20:00 Ur Squamous Epith Cells Few /HPF (NEGATIVE) 03/27/22 20:00 Ur Renal Epithelial Cell Few /HPF (NEGATIVE) 03/27/22 20:00 Urine Bacteria 3+ /HPF (NEGATIVE) 03/27/22 20:00 Urine Mucus Few /HPF (NEGATIVE) 03/27/22 20:00 Urine Yeast Numerous /HPF (NEGATIVE) 03/27/22 20:00 Ur Culture Indicated? Yes/culture set up 03/27/22 20:00 Resp Viral Panel (PCR) See scanned report 03/28/22 14:12 - Plan (1) Acute exacerbation of CHF (congestive heart failure) Status: Acute Qualifiers: Heart failure type: unspecified Plan: SUPPLEMENTAL OXYGEN, BIPAP, D5NS AT 50 ML/HR, INVANZ 1G IV DAILY, DIFLUCAN 100MG DAILY, DUONEBS TID, MORPHINE 1MG IV Q4H, OTBS ACHS, HUMULIN R SLIDING SCALE, AND WE WILL RESUME HER HOME MEDICATIONS WITH THE EXCEPTION OF HER LASIX DUE TO RENAL FAILURE. FOLLOW-UP WITH AM LABS AND CHEST XRAY (2) Respiratory failure with hypoxia and hypercapnia Status: Acute Qualifiers: Chronicity: acute on chronic Qualified Code(s): J96.21 - Acute and chronic respiratory failure with hypoxia; J96.22 - Acute and chronic respiratory failure with hypercapnia; J96.22 - Acute and chronic respiratory failure with hypercapnia (3) Hyperkalemia Status: Acute (4) Acute on chronic kidney failure Status: Acute Qualifiers: Acute renal failure type: unspecified Chronic kidney disease stage: unsp ecified stage Qualified Code(s): N17.9 - Acute kidney failure, unspecified; N18.9 - Chronic kidney disease, unspecified (5) Elevated troponin Status: Acute (6) Urinary tract infection Status: Acute Qualifiers: Urinary tract infection type: acute cystitis Hematuria presence: with hematuria Qualified Code(s): N30.01 - Acute cystitis with hematuria (7) Anemia Status: Chronic Qualifiers: Anemia type: iron deficiency Iron deficiency anemia type: chronic blood loss Qualified Code(s): D50.0 - Iron deficiency anemia secondary to blood loss (chronic) (8) COPD (chronic obstructive pulmonary disease) Status: Chronic Qualifiers: COPD type: COPD with acute exacerbation Qualified Code(s): J44.1 - Chronic obstructive pulmonary disease with (acute) exacerbation (9) Diabetes mellitus, type II Status: Chronic Qualifiers: Diabetes mellitus 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 Diabetes m ellitus complication status: with kidney complications Diabetes mellitus complication detail: with chronic kidney disease Chronic kidney disease stage: stage 4 (severe) Qualified Code(s): E11.22 - Type 2 diabetes mellitus with diabetic chronic kidney disease; N18.4 - Chronic kidney disease, stage 4 (severe ); 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 transplanted heart: [place] heart Associated angina: unspecified whether angina present Qualified Code(s): I25.10 - Atherosclerotic heart disease of [place] coronary artery without angina pectoris
[2022-04-04] MEDS: ISOSORBIDE DINITRATE 5 MG PO SCH ×2 (12:07→21:28)
--- NOTE | 2022-04-04 15:31 | CT ---
HISTORYSOB, HYPOXIASTUDYCHEST W/O CONCOMPARISONChest radiograph 04/04/2022TECHNIQUEMultiple CT axial images of the chest were obtained without IV contrast. Coronal and sagittal images were reconstructed. Dose reduction techniques included Automated Exposure Control (AEC) and adjustment of mA and kV.FINDINGSThe patient has anasarca with generalized edema. This is manifested as increased density in the subcutaneous fat and the intrathoracic fat.Cardiomegaly is present. Diffuse bilateral ground-glass opacity suggests pulmonary edema from a cardiogenic origin. Small bilateral effusions are present. There is also small volume ascites in the upper abdomen. Overall findings suggest congestive heart failure.Atherosclerotic calcification is present in the coronary arteries.The pulmonary artery and aorta have a normal caliber. No mediastinal mass or significant lymphadenopathy.The thyroid has a normal size and configuration. No axillary mass or significant axillary lymphadenopathy is identified.There are more focal areas of airspace consolidation in posterior lungs. But this is associated with pleural effusions which are present. These are likely atelectasis. But pneumonia might have the same appearance.Increased density in the gallbladder may be sludge.Degenerative changes are present in the spine. Median sternotomy wires are present.IMPRESSION1. Findings consistent with CHF2. Superimposed atelectasis or pneumoniaElectronically signed by: Jb Wright (Apr 04, 2022 15:29:42)
[2022-04-04] MEDS: LIPITOR TAB 40 MG PO SCH (21:18)
[2022-04-04] MEDS: SEROquel TAB 25 mg PO SCH (21:19)
[2022-04-04] MEDS: SNACK - Diabetic Appropriate PO SCH (21:28)
[2022-04-04] MEDS: LEVEMIR SC SCH (22:18)
--- NOTE | 2022-04-05 05:14 | RAD ---
PROCEDURE: Chest X-ray 1 View .HISTORY: Dyspnea.TECHNIQUE: AP portable done at 4:31 a.m..COMPARISON: 04/04/2022.TECHNICAL QUALITY: Satisfactory .FINDINGS:Unchanged cardiomegaly with previous sternotomy.Mediastinum and hilar regions show no masses or lymphadenopathy .Increased central vascularity similar previous study.Improved aeration of the left upper lung compared to previous study. Continued mild perihilar consolidation on the right.No acute bony abnormality .IMPRESSION:1. Improved edema on the left and unchanged moderate edema bilaterally probably related to failure.2. Small bilateral pleural effusions.3. Unchanged cardiac enlargement with some prominent central vascularity.Electronically signed by: Ben Clark (Apr 05, 2022 05:13:50)
[2022-04-05 05:36] LABS: BASOPHILS # (AUTO) 0.1 X10^3/uL (0.0-0.1); BASOPHILS % (AUTO) 1.4 % (0.2-1.0); EOSINOPHILS # (AUTO) 0.2 x10^3/uL (0.0-0.2); EOSINOPHILS % (AUTO) 4.7 % (0.9-2.9); LYMPHOCYTES # (AUTO) 1.1 X10^3/uL (1.3-2.9); LYMPHOCYTES % (AUTO) 23.6 % (21.0-51.0); MEAN CORPUSCULAR HEMOGLOBIN 31.7 pg (27.0-34.0); MEAN CORPUSCULAR HGB CONC 31.2 g/dL (33.0-35.0); MEAN CORPUSCULAR VOLUME 101.6 fL (80.0-100.0); MEAN PLATELET VOLUME 7.7 fL (7.4-11.0); MONOCYTES # (AUTO) 0.3 x10^3/uL (0.3-0.8); MONOCYTES % (AUTO) 6.8 % (0.0-13.0); NEUTROPHILS % (AUTO) 63.5 % (42.0-75.0); RED BLOOD COUNT 2.86 X10^6/uL (3.5-5.4); RED CELL DISTRIBUTION WIDTH 19.5 % (11.6-16.5); WHITE BLOOD COUNT 4.8 X10^3/uL (3.6-10.0)
[2022-04-05 05:53] LABS: ALANINE AMINOTRANSFERASE 8 Units/L (12-78); ALBUMIN 2.1 g/dL (3.4-5.0); ALKALINE PHOSPHATASE 93 Units/L (46-116); ASPARTATE AMINO TRANSFERASE 9 Units/L (15-37); BLOOD UREA NITROGEN 60 mg/dL (7-18); CALCIUM 9.8 mg/dL (8.5-10.1); CHLORIDE 107 mmol/L (98-107); COR CA(FOR HYPOALB) 11.3 mg/dL (8.5-10.1); CREATININE 3.45 mg/dL (0.55-1.02); SODIUM 140 mmol/L (136-145); TOTAL PROTEIN 6.2 g/dL (6.4-8.2); eGFR NON BLACK RACES 14 (>60)
[2022-04-05] MEDS: DUONEB 0.5 MG/3 MG (3 mL) NEB SCH ×3 (05:55→21:00)
[2022-04-05] MEDS ORDERED: D50W ABBOJECT SYR ONE ×2 (06:02→08:12)
[2022-04-05] MEDS ORDERED: D50W ABBOJECT SYR IV ONE ×2 (08:19→11:50)
--- NOTE | 2022-04-05 11:30 | PCM.PROG ---
Progress Note - Progress Note for Day of Date of Exam: 04/04/22 - Subjective Subjective: IS CURRENTLY INPATIENT STATUS FOR TREATMENT OF ACUTE EXACERBATION OF CHF, PNEUMONIA, ACUTE ON CHRONIC RESPIRATORY FAILURE WITH HYPERCAPNIA, HYPERKALEMIA, ACUTE ON CHRONIC KIDNEY FAILURE, ELEVATED TROPONIN LEVELS, UTI, AND ANEMIA. ADDITIONALLY, SHE HAS A HISTORY OF COPD, DM II, HYPERL IPIDEMIA, AND CAD. TODAY, SHE IS ALERT, LYING IN BED ON MORNING ROUNDS. SHE IS ABLE TO FOLLOW COMMANDS. SHE COMPLAINS OF PERSISTENT WEAKNESS AND SHORTNESS OF BREATH THIS MORNING. SHE ALSO REPORTS HAVING A PRODUCTIVE COUGH AND LOW BACK PAIN. SHE IS CURRENTLY UTILIZING HEATED HIGH FLOW OXYGEN. SHE WAS NOT ABLE TO TOLERATE WEARING THE BIPAP MUCH THROUGHOUT THE NIGHT. THE NURSING STAFF REPORTS THAT HER OXYGEN SATURATIONS HAVE REMAINED IN THE 90s WHILE ON HEATED HIGH FLOW OXYGEN. THEY REPORT THAT SHE HAS HAD DECREASED ORAL INTAKE. SPEECH THERAPY EVALUATED HER YESTERDAY AND RECOMMENDED ICE CHIPS ONLY DUE TO COUGHING ON THIN LIQUIDS. ON EXAMINATION TODAY, HEART IS REGULAR IN RATE AND RHYTHM. BILATERAL LUNGS ARE NOTED WITH RHONCHI THROUGHOUT. ABDOMEN IS ROUND, SOFT, AND NON-TENDER WITH NORMAL BOWEL SOUNDS NOTED IN ALL QUADRANTS. CARY CATHETER IS NOTED TO BEDSIDE DRAINAGE. WEAKNESS NOTED TO UPPER AND LOWER EXTREMITIES. TRACE LOWER EXTREMITY EDEMA NOTED. HER VITALS THIS MORNING ARE: 98.7-52-20-97%-116/56. HEATED HIGH FLOW OXYGEN WITH FI02 AT 50% THIS MORNING. LABS WERE OBTAINED. WBC 4.6, RBC 2.77, HGB 8.8, HCT 28.5, PLT COUNT 186, SODIUM 140, POTASSIUM 5.4, CHLORIDE 107, BUN 59, CREATININE 3.32, GLUCOSE 68, CALCIUM 9.8, AST 10, ALT 6, ALK PHOS 87, BNP 854, TOTAL PROTEIN 6.0, ALBUMIN 2.1. HER URINE CULTURE IS POSITIVE FOR GROWTH OF E.COLI AND E.COLI #2. SPUTUM CULTURE IS POSITIVE FOR [place] OF KLEBSIELLA PNEUMONIAE. A CHEST XRAY WAS OBTAINED AND REVEALED: Near complete opacification of the left sanchez thorax. There appears to be neutral positioning of the heart and mediastinum the can be seen with pneumonia or combination of atelectasis and pleural effusion. Similar appearing right lung airspace and interstitial opacities may represent pulmonary edema or pneumonia. Blunted right costophrenic sulcus can be seen with small pleural effusion or pleuro-parynchemal scarring. SHE IS CURRENTLY RECEIVING D5NS AT 50 ML/HR, INVANZ 1G IV DAILY, DIFLUCAN 100MG PO DAILY, DUONEBS TID, OTBS ACHS, HUMULIN R SLIDING SCALE, MORPHINE 1MG IV Q4H PRN PAIN, AND HER HOME MEDICATIONS WERE RESUMED WITH THE EXCEPTION OF HER LASIX DUE TO RENAL FAILURE. WE CONTINUED TO ENCOURAGED THE USE OF THE BIPAP DUE TO RESPIRATORY FAILURE WITH HYPERCAPNIA. WE WILL OBTAIN A CHEST CT WITHOUT CONTRAST TODAY. OTHERWISE, WE WILL CONTINUE WITH CURRENT PLAN OF CARE. WE WILL FOLLOW-UP WITH AM LABS AND CHEST XRAY AND CONTINUE TO MONITOR. TIME SPENT ON CLINICAL ASSESSMENT, REVIWING LABS AND IMAGING, DECISION MAKING, AND DOCUMENTATION GREATER THAN 45 MINUTES. - Past Medical Family Social History Past Med/Fam/Surg Hx: No changes since H&P Allergies: Allergies Sulfa (Sulfonamide Antibiotics) [SULFA] Allergy (Verified 10/31/21 18:43) ciprofloxacin [From Cipro] Adverse Reaction (Verified 10/31/21 18:43) - Review of Systems ROS: No change since H&P - Vital Signs and I&O's Vital Signs: Temperature 97.6 F Pulse Rate [Left Brachial] 51 Pulse Rate 51 Respiratory Rate 16 Blood Pressure [Right Arm] 114/57 Blood Pressure [Left Arm] 130/58 Blood Pressure 135/61 O2 Sat by Pulse Oximetry 97 Intake and Output: Intake & Output 04/02/22 04/03/22 04/04/22 04/05/22 11:59 11:59 11:59 11:59 Intake Total 1461 / 1461 609 / 609 690 / 690 112 / 112 Output Total 765 / 765 525 / 525 485 / 485 315 / 315 Balance 696 / 696 84 / 84 205 / 205 -203 / -203 - Physical Exam Oriented: Normal Eyes: Normal Ear: Normal Nose: Normal Throat: Normal Respiratory: Generalized, Diminished, Rhonchi Cardiovascular: Normal : Normal Auscultation: Bowel Sounds: Normal Palpation: Normal Tenderness: Normal Skin: Normal Musculoskeletal: Right, Left, Knee, Back:Lumbar, Tender Psychiatric: Normal Mood Description: Calm Affect: Normal Speech Pattern: Appropriate, Unclear - Laboratory and Diagnostics Result Diagrams: 04/05/22 05:19 04/05/22 05:19 Labs: 03/29/22 11:00 Sputum - Expectorated Sputum Sputum Culture - Final Klebsiella Pneumoniae 03/29/22 11:00 Sputum - Expectorated Sputum - Final 03/27/22 20:00 Urine,Catheterized Urine Culture - Final Escherichia Coli Escherichia Coli#2 Laboratory WBC 4.8 X10^3/uL (3.6-10.0) 04/05/22 05:19 RBC 2.86 X10^6/uL (3.5-5.4) L 04/05/22 05:19 Hgb 9.0 g/dL (12.0-16.0) L 04/05/22 05:19 Hct 29.0 % (36.0-47.0) L 04/05/22 05:19 MCV 101.6 fL (80.0-100.0) H 04/05/22 05:19 MCH 31.7 pg (27.0-34.0) 04/05/22 05:19 MCHC 31.2 g/dL (33.0-35.0) L 04/05/22 05:19 RDW 19.5 % (11.6-16.5) H 04/05/22 05:19 Plt Count 212 X10^3/uL (150.0-450.0) 04/05/22 05:19 MPV 7.7 fL (7.4-11.0) 04/05/22 05:19 Neut % (Auto) 63.5 % (42.0-75.0) 04/05/22 05:19 Lymph % (Auto) 23.6 % (21.0-51.0) 04/05/22 05:19 [place] % (Auto) 6.8 % (0.0-13.0) 04/05/22 05:19 Eos % (Auto) 4.7 % (0.9-2.9) H 04/05/22 05:19 Baso % (Auto) 1.4 % (0.2-1.0) H 04/05/22 05:19 Neut # (Auto) 3.0 x10^3/uL (2.2-4.8) 04/05/22 05:19 Lymph # (Auto) 1.1 X10^3/uL (1.3-2.9) L 04/05/22 05:19 [place] # (Auto) 0.3 x10^3/uL (0.3-0.8) 04/05/22 05:19 Eos # (Auto) 0.2 x10^3/uL (0.0-0.2) 04/05/22 05:19 Baso # (Auto) 0.1 X10^3/uL (0.0-0.1) 04/05/22 05:19 Absolute Nucleated RBC 0.1 /100WBC 04/05/22 05:19 Sample Site R rad 04/02/22 05:00 ABG pH 7.260 (7.35-7.45) L 04/02/22 05:00 ABG pCO2 68.0 mmHg (35.0-45.0) H* 04/02/22 05:00 ABG pO2 78.0 mmHg (80.0-100.0) L 04/02/22 05:00 ABG HCO3 30.5 mmol/L (22-26) H* 04/02/22 05:00 ABG O2 Saturation 93.0 % (90-100) 04/02/22 05:00 ABG Base Excess 1.8 mmol/L (-2.0-2.0) 04/02/22 05:00 Kevin Test Pos 04/02/22 05:00 A-a Gradient 194.0 mmHg 04/02/22 05:00 FiO2 50.0 04/02/22 05:00 Blood Gas Comments Surinder well 04/02/22 05:00 Sodium 140 mmol/L (136-145) 04/05/22 05:19 Corrected Sodium TNP 04/05/22 05:19 Potassium 5.7 mmol/L (3.5-5.1) H 04/05/22 05:19 Chloride 107 mmol/L (98-107) 04/05/22 05:19 Carbon Dioxide 29.0 mmol/L (21-32) 04/05/22 05:19 BUN 60 mg/dL (7-18) H 04/05/22 05:19 Creatinine 3.45 mg/dL (0.55-1.02) H 04/05/22 05:19 Est GFR (MDRD) Af Amer 17 (>60) L 04/05/22 05:19 Est GFR (MDRD) Non-Af 14 (>60) L 04/05/22 05:19 Glucose 56 mg/dL (65-99) L 04/05/22 05:19 POC Glucose (mg/dL) 65 mg/dL (65-99) 04/05/22 11:12 Calcium 9.8 mg/dL (8.5-10.1) 04/05/22 05:19 Corrected Calcium 11.3 mg/dL (8.5-10.1) H 04/05/22 05:19 Total Bilirubin 0.30 mg/dL (0.2-1.0) 04/05/22 05:19 AST 9 Units/L (15-37) L 04/05/22 05:19 ALT 8 Units/L (12-78) L 04/05/22 05:19 Alkaline Phosphatase 93 Units/L (46-116) 04/05/22 05:19 Creatine Kinase 16 Units/L (26-192) L 03/28/22 16:28 Troponin I High Sens 153.3 ng/L (4.0-60.0) H* 03/29/22 08:59 B-Natriuretic Peptide 794 pg/mL (0-79) H* 04/05/22 05:19 Total Protein 6.2 g/dL (6.4-8.2) L 04/05/22 05:19 Albumin 2.1 g/dL (3.4-5.0) L 04/05/22 05:19 Globulin 4.1 g/dL (2.5-4.5) 04/05/22 05:19 Albumin/Globulin Ratio 0.5 Ratio (1.1-2.1) L 04/05/22 05:19 Specimen Type Catherized urine 03/27/22 20:00 Urine Color Yellow (YELLOW) 03/27/22 20:00 Urine Appearance Hazy (CLEAR) 03/27/22 20:00 Urine pH 5.0 (5.0 - 8.0) 03/27/22 20:00 Ur Specific [place] 1.020 (1.000-1.030) 03/27/22 20:00 Urine Protein 3+ (NEGATIVE) 03/27/22 20:00 Urine Glucose (UA) Negative (NEGATIVE) 03/27/22 20:00 Urine Ketones Negative (NEGATIVE) 03/27/22 20:00 Urine Blood 4+ (NEGATIVE) 03/27/22 20:00 Urine Nitrite Negative (NEGATIVE) 03/27/22 20:00 Urine Bilirubin Negative (NEGATIVE) 03/27/22 20:00 Urine Urobilinogen Normal (NORMAL) 03/27/22 20:00 Ur Leukocyte Esterase 3+ (NEGATIVE) 03/27/22 20:00 Urine RBC 10-20 /HPF (0-3) A 03/27/22 20:00 Urine WBC 20-30 /HPF (0-5) A 03/27/22 20:00 Ur Squamous Epith Cells Few /HPF (NEGATIVE) 03/27/22 20:00 Ur Renal Epithelial Cell Few /HPF (NEGATIVE) 03/27/22 20:00 Urine Bacteria 3+ /HPF (NEGATIVE) 03/27/22 20:00 Urine Mucus Few /HPF (NEGATIVE) 03/27/22 20:00 Urine Yeast Numerous /HPF (NEGATIVE) 03/27/22 20:00 Ur Culture Indicated? Yes/culture set up 03/27/22 20:00 Resp Viral Panel (PCR) See scanned report 03/28/22 14:12 - Plan (1) Acute exacerbation of CHF (congestive heart failure) Status: Acute Qualifiers: Heart failure type: unspecified Plan: SUPPLEMENTAL OXYGEN, BIPAP, D5NS AT 50 ML/HR, INVANZ 1G IV DAILY, DIFLUCAN 100MG DAILY, DUONEBS TID, MORPHINE 1MG IV Q4H, OTBS ACHS, HUMULIN R SLIDING SCALE, AND WE WILL RESUME HER HOME MEDICATIONS WITH THE EXCEPTION OF HER LASIX DUE TO RENAL FAILURE. FOLLOW-UP WITH AM LABS AND CHEST XRAY (2) Respiratory failure with hypoxia and hypercapnia Status: Acute Qualifiers: Chronicity: acute on chronic Qualified Code(s): J96.21 - Acute and chronic respiratory failure with hypoxia; J96.22 - Acute and chronic respiratory failure with hypercapnia; J96.22 - Acute and chronic respiratory failure with hypercapnia (3) Hyperkalemia Status: Acute (4) Acute on chronic kidney failure Status: Acute Qualifiers: Acute renal failure type: unspecified Chronic kidney disease stage: unspecified stage Qualified Code(s): N17.9 - Acute kidney failure, unspecified; N18.9 - Chronic kidney disease, unspecified (5) Elevated troponin Status: Acute (6) Urinary tract infection Status: Acute Qualifiers: Urinary tract infection type: acute cystitis Hematuria presence: with hematuria Qualified Code(s): N30.01 - Acute cystitis with hematuria (7) Anemia Status: Chronic Qualifiers: Anemia type: iron deficiency Iron deficiency anemia type: chronic blood loss Qualified Code(s): D50.0 - Iron deficiency anemia secondary to blood loss (chronic) (8) COPD (chronic obstructive pulmonary disease) Status: Chronic Qualifiers: COPD type: COPD with acute exacerbation Qualified Code(s): J44.1 - Chronic obstructive pulmonary disease with (acute) exacerbation (9) Diabetes mellitus, type II Status: Chronic Qualifiers: Diabetes mellitus correction 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 Diabetes mellitus complication status: with kidney complications Diabetes mellitus complication detail: with chronic kidney disease Chronic kidney disease stage: stage 4 (severe) Qualified Code(s): E11.22 - Type 2 diabetes mellitus with diabetic chronic kidney disease; N18.4 - Chronic kidney disease, stage 4 (severe); 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 transplanted heart: [place] heart Associated angina: unspecified whether angina present Qualified Code(s): I25.10 - Atherosclerotic heart disease of [place] coronary artery without angina pectoris
[2022-04-05] MEDS: ARTIFICIAL TEARS DROPS OP SCH (11:47)
[2022-04-05] MEDS: SODIUM BICARBONATE IV SCH ×2 (11:48)
[2022-04-05] MEDS: INVanz INJ 1 GRAM VIAL 1 G in NS 100 ML IV 100 ML IV SCH (11:48)
[2022-04-05] MEDS: LOVENOX INJ 30 MG SYR SC SCH (11:48)
[2022-04-05] MEDS: D5 NS IV SCH ×2 (11:48)
[2022-04-05] MEDS: APRESOLINE TAB 25 MG PO SCH (16:31)
[2022-04-05] MEDS: ZAROXOLYN PO SCH (16:31)
[2022-04-05] MEDS: SYNTHROID 25 mcg TAB PO SCH (16:32)
[2022-04-05] MEDS: XANAX PO SCH (16:32)
[2022-04-05] MEDS: ASPIRIN EC 81 MG PO SCH (16:33)
[2022-04-05] MEDS: COLACE CAP 100 MG PO SCH (16:33)
[2022-04-05] MEDS: PLAVIX PO SCH (16:33)
[2022-04-05] MEDS: COREG TAB 12.5 MG PO SCH (17:23)
[2022-04-05] MEDS: DIFLUCAN PO SCH (17:23)
[2022-04-05] MEDS: HEMOCYTE-PLUS PO SCH (17:23)
[2022-04-05] MEDS: FOLIC ACID TAB 1 MG PO SCH (17:23)
[2022-04-05] MEDS: EFFEXOR XR 75 MG CAP 24-HR PO SCH (17:23)
[2022-04-05] MEDS: ISOSORBIDE DINITRATE 5 MG PO SCH (17:24)
[2022-04-05] MEDS: MIRALAX POWDER (1 DOSE 17 G) PO SCH (17:24)
[2022-04-05] MEDS: MILK OF MAGNESIA PO SCH (17:24)
[2022-04-05] MEDS: NORVASC TAB 5 MG PO SCH (17:24)
[2022-04-05] MEDS: KEPPRA TAB 500 MG PO SCH (17:24)
[2022-04-05] MEDS: D5 NS 1,000 ML IV 1,000 ML IV SCH (17:27)
[2022-04-05] MEDS: SNACK - Diabetic Appropriate PO SCH (21:40)
[2022-04-06] MEDS: APRESOLINE TAB 25 MG PO SCH ×3 (01:34→20:50)
[2022-04-06] MEDS: COLACE CAP 100 MG PO SCH ×3 (01:34→20:50)
[2022-04-06] MEDS: ARTIFICIAL TEARS DROPS OP SCH ×3 (01:34→21:00)
[2022-04-06] MEDS: KEPPRA TAB 500 MG PO SCH ×3 (01:35→20:50)
[2022-04-06] MEDS: ISOSORBIDE DINITRATE 5 MG PO SCH ×3 (01:35→23:01)
[2022-04-06] MEDS: COREG TAB 12.5 MG PO SCH ×3 (01:35→20:50)
[2022-04-06] MEDS: LEVEMIR SC SCH ×2 (01:36→21:04)
[2022-04-06] MEDS: LIPITOR TAB 40 MG PO SCH ×2 (01:37→20:50)
[2022-04-06] MEDS: SODIUM BICARBONATE IV SCH ×8 (01:40→17:27)
[2022-04-06] MEDS: NORVASC TAB 5 MG PO SCH ×3 (01:40→21:24)
[2022-04-06] MEDS: SEROquel TAB 25 mg PO SCH ×2 (01:40→20:50)
[2022-04-06] MEDS: D5 NS IV SCH ×8 (01:40→17:27)
[2022-04-06 05:42] LABS: BASOPHILS % (AUTO) 0.8 % (0.2-1.0); EOSINOPHILS # (AUTO) 0.2 x10^3/uL (0.0-0.2); EOSINOPHILS % (AUTO) 4.2 % (0.9-2.9); HEMATOCRIT 28.4 % (36.0-47.0); HEMOGLOBIN 9.1 g/dL (12.0-16.0); LYMPHOCYTES # (AUTO) 1.2 X10^3/uL (1.3-2.9); LYMPHOCYTES % (AUTO) 23.7 % (21.0-51.0); MEAN CORPUSCULAR HEMOGLOBIN 32.3 pg (27.0-34.0); MEAN CORPUSCULAR HGB CONC 32.1 g/dL (33.0-35.0); MEAN CORPUSCULAR VOLUME 100.5 fL (80.0-100.0); MEAN PLATELET VOLUME 7.6 fL (7.4-11.0); MONOCYTES # (AUTO) 0.4 x10^3/uL (0.3-0.8); MONOCYTES % (AUTO) 7.9 % (0.0-13.0); NEUTROPHILS # (AUTO) 3.2 x10^3/uL (2.2-4.8); NEUTROPHILS % (AUTO) 63.4 % (42.0-75.0); RED BLOOD COUNT 2.82 X10^6/uL (3.5-5.4)
[2022-04-06] MEDS: DUONEB 0.5 MG/3 MG (3 mL) NEB SCH (05:46)
[2022-04-06 06:11] LABS: ALANINE AMINOTRANSFERASE 6 Units/L (12-78); ALKALINE PHOSPHATASE 87 Units/L (46-116); ASPARTATE AMINO TRANSFERASE 11 Units/L (15-37); BLOOD UREA NITROGEN 61 mg/dL (7-18); CALCIUM 9.6 mg/dL (8.5-10.1); CARBON DIOXIDE 29.1 mmol/L (21-32); CHLORIDE 109 mmol/L (98-107); COR CA(FOR HYPOALB) 11.2 mg/dL (8.5-10.1); SODIUM 142 mmol/L (136-145); TOTAL PROTEIN 5.9 g/dL (6.4-8.2); eGFR NON BLACK RACES 14 (>60)
--- NOTE | 2022-04-06 07:54 | RAD ---
HISTORYSOBSTUDYCHEST, 1 [id number]/01/2023.TECHNIQUEPA or AP view of the chestFINDINGSStatus post median sternotomy. The cardiac silhouette is stably enlarged. Mediastinal contours appear stable. No significant change in bilateral airspace and interstitial opacities. Suspect small pleural effusions. No pneumothorax. Soft tissue attenuation limits evaluation.IMPRESSIONNo significant change compared to prior radiograph.Electronically signed by: Jackson Tan (Apr 06, 2022 07:52:16)
[2022-04-06] MEDS: INVanz INJ 1 GRAM VIAL 1 G in NS 100 ML IV 100 ML IV SCH (09:11)
[2022-04-06] MEDS: LOVENOX INJ 30 MG SYR SC SCH (09:15)
--- NOTE | 2022-04-06 11:08 | PCM.PROG ---
Progress Note - Progress Note for Day of Date of Exam: 04/05/22 - Subjective Subjective: IS CURRENTLY INPATIENT STATUS FOR TREATMENT OF ACUTE EXACERBATION OF CHF, PNEUMONIA, ACUTE ON CHRONIC RESPIRATORY FAILURE WITH HYPERCAPNIA, HYPERKALEMIA, ACUTE ON CHRONIC KIDNEY FAILURE, ELEVATED TROPONIN LEVELS, UTI, AND ANEMIA. ADDITIONALLY, SHE HAS A HISTORY OF COPD, DM II, HYPERL IPIDEMIA, AND CAD. TODAY, SHE IS ALERT, LYING IN BED ON MORNING ROUNDS. SHE IS ABLE TO FOLLOW COMMANDS. SHE COMPLAINS OF PERSISTENT WEAKNESS AND SHORTNESS OF BREATH THIS MORNING. SHE DOES REPORT SOME IMPROVEMENT IN COUGH. SHE IS CURRENTLY UTILIZING HEATED HIGH FLOW OXYGEN. SHE HAS NOT ABLE TO TOLERATE WEARING THE BIPAP. THE NURSING STAFF REPORTS THAT HER OXYGEN SATURATIONS HAVE REMAINED IN THE 90s WHILE ON HEATED HIGH FLOW OXYGEN. SATURATIONS DO DROP TO THE 80s WHEN OXYGEN IS REMOVED. 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 SPEECH THERAPY EVALUATED HER AND RECOMMENDED ICE CHIPS ONLY DUE TO COUGHING ON THIN LIQUIDS. ON EXAMINATION TODAY, HEART IS REGULAR IN RATE AND RHYTHM. BILATERAL LUNGS ARE NOTED WITH RHONCHI THROUGHOUT. ABDOMEN IS ROUND, SOFT, AND NON-TENDER WITH NORMAL BOWEL SOUNDS NOTED IN ALL QUADRANTS. CARY CATHETER IS NOTED TO BEDSIDE DRAINAGE. WEAKNESS NOTED TO UPPER AND LOWER EXTREMITIES. TRACE LOWER EXTREMITY EDEMA NOTED. HER VITALS THIS MORNING ARE: 97.6-51-16-97%-130/58. HEATED HIGH FLOW OXYGEN WITH FI02 AT 40% THIS MORNING. LABS WERE OBTAINED. WBC 4.8, RBC 2.86, HGB 9.0, HCT 29.0, SODIUM 140, POTASSIUM 5.7, CHLORIDE 107, BUN 60, CREATININE 3.45, GLUCOSE 56, CALCIUM 9.8, AST 9, ALT 8, ALK PHOS 93, BNP 794, TOTAL PROTEIN 6.2, ALBUMIN 2.1. HER URINE CULTURE IS POSITIVE FOR GROWTH OF E.COLI AND E.COLI #2. SPUTUM CULTURE IS POSITIVE FOR GROWTH OF KLEBSIELLA PNEUMONIAE. A CHEST XRAY WAS OBTAINED AND REVEALED: 1. Improved edema on the left and unchanged moderate edema bilaterally probably related to failure.2. Small bilateral pleural effusions.3. Unchanged cardiac enlargement with some prominent central vascularity. A CHEST CT WITHOUT CONTRAST WAS OBTAINED YESTERD AY AND REVEALED: 1. Findings consistent with CHF 2. Superimposed atelectasis or pneumonia. SHE IS CURRENTLY RECEIVING D5NS AT 50 ML/HR, INVANZ 1G IV DAILY, DIFLUCAN 100MG PO DAILY, DUONEBS TID, OTBS ACHS, HUMULIN R SLIDING SCALE, MORPHINE 1MG IV Q4H PRN PAIN, AND HER HOME MEDICATIONS WERE RESUMED WITH THE EXCEPTION OF HER LASIX DUE TO RENAL FAILURE. WE CONTINUED TO ENCOURAGED THE USE OF THE BIPAP DUE TO RESPIRATORY FAILURE WITH HYPERCAPNIA. WE WILL ADD AN AMP OF BICARB TO EACH LITER OF IV FLUIDS AND INCREASE RATE TO 75 ML/HR. OTHERWISE, WE WILL CONTINUE WITH CURRENT PLAN OF CARE. WE WILL FOLLOW-UP WITH AM LABS AND CHEST XRAY AND CONTINUE TO MONITOR. TIME SPENT ON CLINICAL ASSESSMENT, REVIWING LABS AND IMAGING, DECISION MAKING, AND DOCUMENTATION GREATER THAN 45 MINUTES. - Past Medical Family Social History Past Med/Fam/Surg Hx: No changes since H&P Allergies: Allergies Sulfa (Sulfonamide Antibiotics) [SULFA] Allergy (Verified 10/31/21 18:43) ciprofloxacin [From Cipro] Adverse Reaction (Verified 10/31/21 18:43) - Review of Systems ROS: No change since H&P - Vital Signs and I&O's Vital Signs: Temperature 98 F Pulse Rate [Left Brachial] 53 Pulse Rate 53 Respiratory Rate 20 Blood Pressure [Right Arm] 114/57 Blood Pressure [Left Arm] 118/55 Blood Pressure 135/61 O2 Sat by Pulse Oximetry 100 Intake and Output: Intake & Output 04/03/22 04/04/22 04/05/22 04/06/22 11:59 11:59 11:59 11:59 Intake Total 609 / 609 690 / 690 112 / 112 1373 / 1373 Output Total 525 / 525 485 / 485 315 / 315 325 / 325 Balance 84 / 84 205 / 205 -203 / -203 1048 / 1048 - Physical Exam Oriented: Normal Eyes: Normal Ear: Normal Nose: Normal Throat: Normal Respiratory: Generalized, Diminished, Rhonchi Cardiovascular: Normal : Normal Auscultation: Bowel Sounds: Normal Palpation: Normal Tenderness: Normal Skin: Normal Musculoskeletal: Right, Left, Knee, Back:Lumbar, Tender Psychiatric: Normal Mood Description: Calm Affect: Normal Speech Pattern: Appropriate - Laboratory and Diagnostics Result Diagrams: 04/06/22 05:14 04/06/22 05:14 Labs: 03/29/22 11:00 Sputum - Expectorated Sputum Sputum Culture - Final Klebsiella Pneumoniae 03/29/22 11:00 Sputum - Expectorated Sputum - Final 03/27/22 20:00 Urine,Catheterized Urine Culture - Final Escherichia Coli Escherichia Coli#2 Laboratory WBC 5.0 X10^3/uL (3.6-10.0) 04/06/22 05:14 RBC 2.82 X10^6/uL (3.5-5.4) L 04/06/22 05:14 Hgb 9.1 g/dL (12.0-16.0) L 04/06/22 05:14 Hct 28.4 % (36.0-47.0) L 04/06/22 05:14 MCV 100.5 fL (80.0-100.0) H 04/06/22 05:14 MCH 32.3 pg (27.0-34.0) 04/06/22 05:14 MCHC 32.1 g/dL (33.0-35.0) L 04/06/22 05:14 RDW 19.0 % (11.6-16.5) H 04/06/22 05:14 Plt Count 228 X10^3/uL (150.0-450.0) 04/06/22 05:14 MPV 7.6 fL (7.4-11.0) 04/06/22 05:14 Neut % (Auto) 63.4 % (42.0-75.0) 04/06/22 05:14 Lymph % (Auto) 23.7 % (21.0-51.0) 04/06/22 05:14 [place] % (Auto) 7.9 % (0.0-13.0) 04/06/22 05:14 Eos % (Auto) 4.2 % (0.9-2.9) H 04/06/22 05:14 Baso % (Auto) 0.8 % (0.2-1.0) 04/06/22 05:14 Neut # (Auto) 3.2 x10^3/uL (2.2-4.8) 04/06/22 05:14 Lymph # (Auto) 1.2 X10^3/uL (1.3-2.9) L 04/06/22 05:14 [place] # (Auto) 0.4 x10^3/uL (0.3-0.8) 04/06/22 05:14 Eos # (Auto) 0.2 x10^3/uL (0.0-0.2) 04/06/22 05:14 Baso # (Auto) 0.0 X10^3/uL (0.0-0.1) 04/06/22 05:14 Absolute Nucleated RBC 0.0 /100WBC 04/06/22 05:14 Sample Site R rad 04/02/22 05:00 ABG pH 7.260 (7.35-7.45) L 04/02/22 05:00 ABG pCO2 68.0 mmHg (35.0-45.0) H* 04/02/22 05:00 ABG pO2 78.0 mmHg (80.0-100.0) L 04/02/22 05:00 ABG HCO3 30.5 mmol/L (22-26) H* 04/02/22 05:00 ABG O2 Saturation 93.0 % (90-100) 04/02/22 05:00 ABG Base Excess 1.8 mmol/L (-2.0-2.0) 04/02/22 05:00 Kevin Test Pos 04/02/22 05:00 A-a Gradient 194.0 mmHg 04/02/22 05:00 FiO2 50.0 04/02/22 05:00 Blood Gas Comments Surinder well 04/02/22 05:00 Sodium 142 mmol/L (136-145) 04/06/22 05:14 Corrected Sodium TNP 04/06/22 05:14 Potassium 5.5 mmol/L (3.5-5.1) H 04/06/22 05:14 Chloride 109 mmol/L (98-107) H 04/06/22 05:14 Carbon Dioxide 29.1 mmol/L (21-32) 04/06/22 05:14 BUN 61 mg/dL (7-18) H 04/06/22 05:14 Creatinine 3.50 mg/dL (0.55-1.02) H 04/06/22 05:14 Est GFR (MDRD) Af Amer 17 (>60) L 04/06/22 05:14 Est GFR (MDRD) Non-Af 14 (>60) L 04/06/22 05:14 Glucose 82 mg/dL (65-99) 04/06/22 05:14 POC Glucose (mg/dL) 79 mg/dL (65-99) 04/06/22 06:18 Calcium 9.6 mg/dL (8.5-10.1) 04/06/22 05:14 Corrected Calcium 11.2 mg/dL (8.5-10.1) H 04/06/22 05:14 Total Bilirubin 0.30 mg/dL (0.2-1.0) 04/06/22 05:14 AST 11 Units/L (15-37) L 04/06/22 05:14 ALT 6 Units/L (12-78) L 04/06/22 05:14 Alkaline Phosphatase 87 Units/L (46-116) 04/06/22 05:14 Creatine Kinase 16 Units/L (26-192) L 03/28/22 16:28 Troponin I High Sens 153.3 ng/L (4.0-60.0) H* 03/29/22 08:59 B-Natriuretic Peptide 690 pg/mL (0-79) H* 04/06/22 05:14 Total Protein 5.9 g/dL (6.4-8.2) L 04/06/22 05:14 Albumin 2.0 g/dL (3.4-5.0) L 04/06/22 05:14 Globulin 3.9 g/dL (2.5-4.5) 04/06/22 05:14 Albumin/Globulin Ratio 0.5 Ratio (1.1-2.1) L 04/06/22 05:14 Specimen Type Catherized urine 03/27/22 20:00 Urine Color Yellow (YELLOW) 03/27/22 20:00 Urine Appearance Hazy (CLEAR) 03/27/22 20:00 Urine pH 5.0 (5.0 - 8.0) 03/27/22 20:00 Ur Specific [place] 1.020 (1.000-1.030) 03/27/22 20:00 Urine Protein 3+ (NEGATIVE) 03/27/22 20:00 Urine Glucose (UA) Negative (NEGATIVE) 03/27/22 20:00 Urine Ketones Negative (NEGATIVE) 03/27/22 20:00 Urine Blood 4+ (NEGATIVE) 03/27/22 20:00 Urine Nitrite Negative (NEGATIVE) 03/27/22 20:00 Urine Bilirubin Negative (NEGATIVE) 03/27/22 20:00 Urine Urobilinogen Normal (NORMAL) 03/27/22 20:00 Ur Leukocyte Esterase 3+ (NEGATIVE) 03/27/22 20:00 Urine RBC 10-20 /HPF (0-3) A 03/27/22 20:00 Urine WBC 20-30 /HPF (0-5) A 03/27/22 20:00 Ur Squamous Epith Cells Few /HPF (NEGATIVE) 03/27/22 20:00 Ur Renal Epithelial Cell Few /HPF (NEGATIVE) 03/27/22 20:00 Urine Bacteria 3+ /HPF (NEGATIVE) 03/27/22 20:00 Urine Mucus Few /HPF (NEGATIVE) 03/27/22 20:00 Urine Yeast Numerous /HPF (NEGATIVE) 03/27/22 20:00 Ur Culture Indicated? Yes/culture set up 03/27/22 20:00 Resp Viral Panel (PCR) See scanned report 03/28/22 14:12 - Plan (1) Acute exacerbation of CHF (congestive heart failure) Status: Acute Qualifiers: Heart failure type: unspecified Plan: SUPPLEMENTAL OXYGEN, BIPAP, D5NS WITH 1 AMP BICARB AT 75 ML/HR, INVANZ 1G IV DAILY, DIFLUCAN 100MG DAILY, DUONEBS TID, MORPHINE 1MG IV Q4H, OTBS ACHS, HUMULIN R SLIDING SCALE, AND WE WILL RESUME HER HOME MEDICATIONS WITH THE EXCEPTION OF HER LASIX DUE TO RENAL FAILURE. FOLLOW-UP WITH AM LABS AND CHEST XRAY (2) Respiratory failure with hypoxia and hypercapnia Status: Acute Qualifiers: Chronicity: acute on chronic Qualified Code(s): J96.21 - Acute and chronic respiratory failure with hypoxia; J96.22 - Acute and chronic respiratory failure with hypercapnia; J96.22 - Acute and chronic respiratory failure with hypercapnia (3) Hyperkalemia Status: Acute (4) Acute on chronic kidney failure Status: Acute Qualifiers: Acute renal failure type: unspecified Chronic kidney disease stage: unspecified stage Qualified Code(s): N17.9 - Acute kidney failure, unspecified; N18.9 - Chronic kidney disease, unspecified (5) Elevated troponin Status: Acute (6) Urinary tract infection Status: Acute Qualifiers: Urinary tract infection type: acute cystitis Hematuria presence: with hematuria Qualified Code(s): N30.01 - Acute cystitis with hematuria (7) Anemia Status: Chronic Qualifiers: Anemia type: iron deficiency Iron deficiency anemia type: chronic blood loss Qualified Code(s): D50.0 - Iron deficiency anemia secondary to blood loss (chronic) (8) COPD (chronic obstructive pulmonary disease) Status: Chronic Qualifiers: COPD type: COPD with acute exacerbation Qualified Code(s): J44.1 - Chronic obstructive pulmonary disease with (acute) exacerbation (9) Diabetes mellitus, type II Status: Chronic Qualifiers: Diabetes mellitus electrophysiology scientist insulin use: with electrophysiology scientist use Diabetes mellitus complication status: with kidney complications Diabetes mellitus complication detail: with chronic kidney disease Chronic kidney disease stage: stage 4 (severe) Qualified Code(s): E11.22 - Type 2 diabetes mellitus with diabetic chronic kidney disease; N18.4 - Chronic kidney disease, stage 4 (severe); Z79.4 - half-way (current) use of insulin (10) Hyperlipidemia Status: Chronic Qualifiers: Hyperlipidemia type: mixed hyperlipidemia Qualified Code(s): E78.2 - Mixed hyperlipidemia (11) CAD (coronary artery disease) Status: Chronic Qualifiers: Coronary Disease-Associated Artery/Lesion type: [place] artery [place] vs. transplanted heart: [place] heart Associated angina: unspecified whether angina present Qualified Code(s): I25.10 - Atherosclerotic heart disease of [place] coronary artery without angina pectoris
--- NOTE | 2022-04-06 11:12 | PCM.PROG ---
Progress Note - Progress Note for Day of Date of Exam: 04/05/22 - Subjective Subjective: IS A 70 YEAR OLD FEMALE PATIENT OF OURS AND . SHE IS CURRENTLY INPATIENT STATUS FOR TREATMENT OF CELLULITIS OF THE RIGHT FOOT. SHE IS DAY 2 POST OP DEBRIDEMENT OF WOUND. POST OPERATIVE DX INCLUDE: INFECTED CALLOUS OR PLANTAR WART LEFT FOOT WITH ABSCESS FORMATION. 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 A LOWER EXTREMITY CT WAS OBTAINED ON ADMISSION AND REVEALED: Probable left foot neuropathic degenerative changes with a large blister along the plantar surface without evidence of associated acute osteomyelitis. TODAY, SHE IS ALERT AND ORIENTED, LYING IN BED ON MORNING ROUNDS. SHE CONTINUES TO COMPLAIN OF PAIN TO THE LEFT FOOT. SHE DESCRIBES PAIN THROBBING AND INTERMITTENT. PAIN IMPROVES WITH USE OF PERCOCET. SHE CURRENTLY RATES PAIN A 4/10. ADDITIONALLY, SHE COMPLAINS OF DIFFUSE ABDOMINAL CRAMPING AND DENIES HAVING A BOWEL MOVEMENT IN SEVERAL DAYS. SHE HAD A SOAP SUDS ENEMA WITH SMALL RESULTS LAST NIGHT. ON EXAMINATION, HEART IS REGULAR IN RATE AND RHYTHM. BILATERAL LUNGS ARE NOTED WITH DIMINISHED LUNG SOUNDS THROUGHOUT. ABDOMEN IS ROUND, SOFT, AND NOTED WITH LOWER QUADRANT TENDERNESS ON PALPATION. HYPERACTIVE BOWEL SOUNDS ARE NOTED. THERE IS ERRYTHEMA NOTED TO THE LEFT FOOT. WOUND IS PACKED WITH IODIFORM. HER VITALS THIS MORNING ARE: 97.8-72-20-97%-127/61. LABS WERE OBTAINED. WBC 8.3, RBC 3.73, HGB 11.2, HCT 32.4, PLT COUNT 214, SODIUM 141, POTASSIUM 4.4, CHLORIDE 108, BUN 32, CREATININE 1.06, CALCIUM 8.9, AST 94, ALT 79, ALK PHOS 320, TOTAL PROTEIN 6.6, ALBUMIN 2.7. WOUND CULTURES ARE POSITIVE FOR GROWTH OF MRSA. SHE IS CURRENTLY RECEIVING NORMAL SALINE AT 75 ML/HR, VANCOMYCIN 1.25G IV DAILY, PERCOCET 5/325MG Q6H PRN, OTBS ACHS, LOVENOX 40MG SC DAILY, MORPHINE SULFATE 3MG IV Q4H PRN, COLACE 100MG DAILY, MILK OF MAGNESIA 30ML BID PRN. HER HOEM MEDICATIONS OF ELAVIL, COREG, KLONOPIN, FLEXERIL, CYMBALTA, GLIPIZIDE, LEVEMIR, COZAAR, MAG-OX, AND CRESTOR WERE RESUMED. WILL CONTINUE TO FOLLOW PATIENT FOR WOUND CARE. WE WILL HAVE PHYSICAL THERAPY WORK WITH HER TODAY. WE WILL OBTAIN A KUB. OTHERWISE, WE WILL FOLLOW-UP WITH AM LABS AND CONTINUE TO MONITOR. TIME SPENT ON CLINICAL ASSESSMENT, REVIWING LABS AND IMAGING, DECISION MAKING, AND DOCUMENTATION GREATER THAN 45 MINUTES. - Past Medical Family Social History Past Med/Fam/Surg Hx: No changes since H&P Allergies: Allergies Sulfa (Sulfonamide Antibiotics) [SULFA] Allergy (Verified 10/31/21 18:43) ciprofloxacin [From Cipro] Adverse Reaction (Verified 10/31/21 18:43) - Review of Systems ROS: No change since H&P - Vital Signs and I&O's Vital Signs: Temperature 98 F Pulse Rate [Left Brachial] 53 Pulse Rate 53 Respiratory Rate 20 Blood Pressure [Right Arm] 114/57 Blood Pressure [Left Arm] 118/55 Blood Pressure 135/61 O2 Sat by Pulse Oximetry 100 Intake and Output: Intake & Output 04/03/22 04/04/22 04/05/22 04/06/22 11:59 11:59 11:59 11:59 Intake Total 609 / 609 690 / 690 112 / 112 1373 / 1373 Output Total 525 / 525 485 / 485 315 / 315 325 / 325 Balance 84 / 84 205 / 205 -203 / -203 1048 / 1048 - Physical Exam Oriented: Normal Eyes: Normal Ear: Normal Nose: Normal Throat: Normal Respiratory: Generalized, Diminished, Rhonchi Cardiovascular: Normal : Normal Auscultation: Bowel Sounds: Normal Palpation: Normal Tenderness: Normal Skin: Normal Musculoskeletal: Right, Left, Knee, Back:Lumbar, Tender Psychiatric: Normal Mood Description: Calm Affect: Normal Speech Pattern: Appropriate - Laboratory and Diagnostics Result Diagrams: 04/06/22 05:14 04/06/22 05:14 Labs: 03/29/22 11:00 Sputum - Expectorated Sputum Sputum Culture - Final Klebsiella Pneumoniae 03/29/22 11:00 Sputum - Expectorated Sputum - Final 03/27/22 20:00 Urine,Catheterized Urine Culture - Final Escherichia Coli Escherichia Coli#2 Laboratory WBC 5.0 X10^3/uL (3.6-10.0) 04/06/22 05:14 RBC 2.82 X10^6/uL (3.5-5.4) L 04/06/22 05:14 Hgb 9.1 g/dL (12.0-16.0) L 04/06/22 05:14 Hct 28.4 % (36.0-47.0) L 04/06/22 05:14 MCV 100.5 fL (80.0-100.0) H 04/06/22 05:14 MCH 32.3 pg (27.0-34.0) 04/06/22 05:14 MCHC 32.1 g/dL (33.0-35.0) L 04/06/22 05:14 RDW 19.0 % (11.6-16.5) H 04/06/22 05:14 Plt Count 228 X10^3/uL (150.0-450.0) 04/06/22 05:14 MPV 7.6 fL (7.4-11.0) 04/06/22 05:14 Neut % (Auto) 63.4 % (42.0-75.0) 04/06/22 05:14 Lymph % (Auto) 23.7 % (21.0-51.0) 04/06/22 05:14 [place] % (Auto) 7.9 % (0.0-13.0) 04/06/22 05:14 Eos % (Auto) 4.2 % (0.9-2.9) H 04/06/22 05:14 Baso % (Auto) 0.8 % (0.2-1.0) 04/06/22 05:14 Neut # (Auto) 3.2 x10^3/uL (2.2-4.8) 04/06/22 05:14 Lymph # (Auto) 1.2 X10^3/uL (1.3-2.9) L 04/06/22 05:14 [place] # (Auto) 0.4 x10^3/uL (0.3-0.8) 04/06/22 05:14 Eos # (Auto) 0.2 x10^3/uL (0.0-0.2) 04/06/22 05:14 Baso # (Auto) 0.0 X10^3/uL (0.0-0.1) 04/06/22 05:14 Absolute Nucleated RBC 0.0 /100WBC 04/06/22 05:14 Sample Site R rad 04/02/22 05:00 ABG pH 7.260 (7.35-7.45) L 04/02/22 05:00 ABG pCO2 68.0 mmHg (35.0-45.0) H* 04/02/22 05:00 ABG pO2 78.0 mmHg (80.0-100.0) L 04/02/22 05:00 ABG HCO3 30.5 mmol/L (22-26) H* 04/02/22 05:00 ABG O2 Saturation 93.0 % (90-100) 04/02/22 05:00 ABG Base Excess 1.8 mmol/L (-2.0-2.0) 04/02/22 05:00 Kevin Test Pos 04/02/22 05:00 A-a Gradient 194.0 mmHg 04/02/22 05:00 FiO2 50.0 04/02/22 05:00 Blood Gas Comments Surinder well 04/02/22 05:00 Sodium 142 mmol/L (136-145) 04/06/22 05:14 Corrected Sodium TNP 04/06/22 05:14 Potassium 5.5 mmol/L (3.5-5.1) H 04/06/22 05:14 Chloride 109 mmol/L (98-107) H 04/06/22 05:14 Carbon Dioxide 29.1 mmol/L (21-32) 04/06/22 05:14 BUN 61 mg/dL (7-18) H 04/06/22 05:14 Creatinine 3.50 mg/dL (0.55-1.02) H 04/06/22 05:14 Est GFR (MDRD) Af Amer 17 (>60) L 04/06/22 05:14 Est GFR (MDRD) Non-Af 14 (>60) L 04/06/22 05:14 Glucose 82 mg/dL (65-99) 04/06/22 05:14 POC Glucose (mg/dL) 79 mg/dL (65-99) 04/06/22 06:18 Calcium 9.6 mg/dL (8.5-10.1) 04/06/22 05:14 Corrected Calcium 11.2 mg/dL (8.5-10.1) H 04/06/22 05:14 Total Bilirubin 0.30 mg/dL (0.2-1.0) 04/06/22 05:14 AST 11 Units/L (15-37) L 04/06/22 05:14 ALT 6 Units/L (12-78) L 04/06/22 05:14 Alkaline Phosphatase 87 Units/L (46-116) 04/06/22 05:14 Creatine Kinase 16 Units/L (26-192) L 03/28/22 16:28 Troponin I High Sens 153.3 ng/L (4.0-60.0) H* 03/29/22 08:59 B-Natriuretic Peptide 690 pg/mL (0-79) H* 04/06/22 05:14 Total Protein 5.9 g/dL (6.4-8.2) L 04/06/22 05:14 Albumin 2.0 g/dL (3.4-5.0) L 04/06/22 05:14 Globulin 3.9 g/dL (2.5-4.5) 04/06/22 05:14 Albumin/Globulin Ratio 0.5 Ratio (1.1-2.1) L 04/06/22 05:14 Specimen Type Catherized urine 03/27/22 20:00 Urine Color Yellow (YELLOW) 03/27/22 20:00 Urine Appearance Hazy (CLEAR) 03/27/22 20:00 Urine pH 5.0 (5.0 - 8.0) 03/27/22 20:00 Ur Specific [place] 1.020 (1.000-1.030) 03/27/22 20:00 Urine Protein 3+ (NEGATIVE) 03/27/22 20:00 Urine Glucose (UA) Negative (NEGATIVE) 03/27/22 20:00 Urine Ketones Negative (NEGATIVE) 03/27/22 20:00 Urine Blood 4+ (NEGATIVE) 03/27/22 20:00 Urine Nitrite Negative (NEGATIVE) 03/27/22 20:00 Urine Bilirubin Negative (NEGATIVE) 03/27/22 20:00 Urine Urobilinogen Normal (NORMAL) 03/27/22 20:00 Ur Leukocyte Esterase 3+ (NEGATIVE) 03/27/22 20:00 Urine RBC 10-20 /HPF (0-3) A 03/27/22 20:00 Urine WBC 20-30 /HPF (0-5) A 03/27/22 20:00 Ur Squamous Epith Cells Few /HPF (NEGATIVE) 03/27/22 20:00 Ur Renal Epithelial Cell Few /HPF (NEGATIVE) 03/27/22 20:00 Urine Bacteria 3+ /HPF (NEGATIVE) 03/27/22 20:00 Urine Mucus Few /HPF (NEGATIVE) 03/27/22 20:00 Urine Yeast Numerous /HPF (NEGATIVE) 03/27/22 20:00 Ur Culture Indicated? Yes/culture set up 03/27/22 20:00 Resp Viral Panel (PCR) See scanned report 03/28/22 14:12 - Plan (1) Acute exacerbation of CHF (congestive heart failure) Status: Acute Qualifiers: Heart failure type: unspecified Plan: SUPPLEMENTAL OXYGEN, BIPAP, D5NS WITH 1 AMP BICARB AT 75 ML/HR, INVANZ 1G IV DAILY, DIFLUCAN 100MG DAILY, DUONEBS TID, MORPHINE 1MG IV Q4H, OTBS ACHS, HUMULIN R SLIDING SCALE, AND WE WILL RESUME HER HOME MEDICATIONS WITH THE E XCEPTION OF HER LASIX DUE TO RENAL FAILURE. FOLLOW-UP WITH AM LABS AND CHEST XRAY (2) Respiratory failure with hypoxia and hypercapnia Status: Acute Qualifiers: Chronicity: acute on chronic Qualified Code(s): J96.21 - Acute and chronic respiratory failure with hypoxia; J96.22 - Acute and chronic respiratory failure with hypercapnia; J96.22 - Acute and chronic respiratory failure with hypercapnia (3) Hyperkalemia Status: Acute (4) Acute on chronic kidney failure Status: Acute Qualifiers: Acute renal failure type: unspecified Chronic kidney disease stage: unspecified stage Qualified Code(s): N17.9 - Acute kidney failure, u nspecified; N18.9 - Chronic kidney disease, unspecified (5) Elevated troponin Status: Acute (6) Urinary tract infection Status: Acute Qualifiers: Urinary tract infection type: acute cystitis Hematuria presence: with hematuria Qualified Code(s): N30.01 - Acute cystitis with hematuria (7) Anemia Status: Chronic Qualifiers: Anemia type: iron deficiency Iron deficiency anemia type: chronic blood loss Qualified Code(s): D50.0 - Iron deficiency anemia secondary to blood loss (chronic) (8) COPD (chronic obstructive pulmonary disease) Status: Chronic Qualifiers: COPD type: COPD with acute exacerbation Qualified Code(s): J44.1 - Chronic obstructive pulmonary disease with (acute) exacerbation (9) Diabetes mellitus, type II Status: Chronic Qualifiers: 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 mellitus termite technician insulin use: with snf use Diabetes mellitus complication status: with kidney complications Diabetes mellitus complication detail: with chronic kidney disease Chronic kidney disease stage: stage 4 (severe) Qualified Code(s): E11.22 - Type 2 diabetes mellitus with diabetic chronic kidney disease; N18.4 - Chronic kidney disease, stage 4 (severe); Z79.4 - custodial (current) use of insulin (10) Hyperlipidemia Status: Chronic Qualifiers: Hyperlipidemia type: mixed hyperlipidemia Qualified Code(s): E78.2 - Mixed hyperlipidemia (11) CAD (coronary artery disease) Status: Chronic Qualifiers: Coronary Disease-Associated Artery/Lesion type: [place] artery [place] vs. transplanted heart: [place] heart Associated angina: unspecified whether angina present Qualified Code(s): I25.10 - Atherosclerotic heart disease of [place] coronary artery without angina pectoris
[2022-04-06 11:30] LABS: ABG ALLEN TEST POSITIVE; ABG HCO3 30.7 mmol/L (22-26)
[2022-04-06] MEDS ORDERED: XOPENEX 1.25 MG/3 ML NEBULE NEB ONE (12:28)
[2022-04-06] MEDS: XOPENEX 1.25 MG/3 ML NEBULE NEB SCH ×2 (13:00→20:00)
[2022-04-06] MEDS: PLAVIX PO SCH (13:09)
[2022-04-06] MEDS: XANAX PO SCH (13:11)
[2022-04-06] MEDS: MIRALAX POWDER (1 DOSE 17 G) PO SCH (13:12)
[2022-04-06] MEDS: NYSTATIN POWDER TOP SCH ×2 (13:21→21:25)
[2022-04-06] MEDS: ZAROXOLYN PO SCH (13:22)
[2022-04-06] MEDS: EFFEXOR XR 75 MG CAP 24-HR PO SCH (13:22)
[2022-04-06] MEDS: SYNTHROID 25 mcg TAB PO SCH (13:22)
[2022-04-06] MEDS: DIFLUCAN PO SCH (13:22)
[2022-04-06] MEDS: MILK OF MAGNESIA PO SCH (13:22)
[2022-04-06] MEDS: ASPIRIN EC 81 MG PO SCH (13:22)
[2022-04-06] MEDS: FOLIC ACID TAB 1 MG PO SCH (13:23)
[2022-04-06] MEDS: HEMOCYTE-PLUS PO SCH (13:23)
[2022-04-06] MEDS: SNACK - Diabetic Appropriate PO SCH (22:44)
[2022-04-07 05:13] LABS: BASOPHILS % (AUTO) 0.9 % (0.2-1.0); EOSINOPHILS # (AUTO) 0.2 x10^3/uL (0.0-0.2); EOSINOPHILS % (AUTO) 4.2 % (0.9-2.9); HEMATOCRIT 28.2 % (36.0-47.0); HEMOGLOBIN 9.1 g/dL (12.0-16.0); LYMPHOCYTES # (AUTO) 1.1 X10^3/uL (1.3-2.9); LYMPHOCYTES % (AUTO) 23.7 % (21.0-51.0); MEAN CORPUSCULAR HEMOGLOBIN 32.3 pg (27.0-34.0); MEAN CORPUSCULAR HGB CONC 32.2 g/dL (33.0-35.0); MEAN CORPUSCULAR VOLUME 100.3 fL (80.0-100.0); MEAN PLATELET VOLUME 7.6 fL (7.4-11.0); MONOCYTES # (AUTO) 0.4 x10^3/uL (0.3-0.8); MONOCYTES % (AUTO) 8.5 % (0.0-13.0); NEUTROPHILS % (AUTO) 62.7 % (42.0-75.0); RED BLOOD COUNT 2.81 X10^6/uL (3.5-5.4); RED CELL DISTRIBUTION WIDTH 19.1 % (11.6-16.5); WHITE BLOOD COUNT 4.8 X10^3/uL (3.6-10.0)
[2022-04-07] MEDS: D5 NS IV SCH ×4 (05:13→16:23)
[2022-04-07] MEDS: SODIUM BICARBONATE IV SCH ×4 (05:13→16:23)
[2022-04-07] MEDS: XOPENEX 1.25 MG/3 ML NEBULE NEB SCH ×3 (05:30→20:20)
[2022-04-07 05:36] LABS: ALANINE AMINOTRANSFERASE < 6 Units/L (12-78); ALKALINE PHOSPHATASE 88 Units/L (46-116); ASPARTATE AMINO TRANSFERASE 9 Units/L (15-37); BLOOD UREA NITROGEN 59 mg/dL (7-18); CALCIUM 9.3 mg/dL (8.5-10.1); CHLORIDE 110 mmol/L (98-107); COR CA(FOR HYPOALB) 10.9 mg/dL (8.5-10.1); COR NA(FOR HYPERGLY) 142 mmol/L (136-145); CREATININE 3.32 mg/dL (0.55-1.02); SODIUM 142 mmol/L (136-145); TOTAL PROTEIN 5.9 g/dL (6.4-8.2); eGFR NON BLACK RACES 15 (>60)
--- NOTE | 2022-04-07 08:27 | RAD ---
HISTORYSOBSTUDYCHEST, 1 [id number].TECHNIQUEPA or AP view of the chestFINDINGSStatus post median sternotomy and CABG. The cardiac silhouette is stably enlarged. Mediastinal contours appear stable. Similar appearing bilateral airspace and interstitial opacities with lower lung predominance. Blunted right costophrenic sulcus. Moderate left pleural effusions suspected. No pneumothorax.IMPRESSIONNo significant change compared to prior radiograph.Electronically signed by: Jackson Tan (Apr 07, 2022 08:26:52)
[2022-04-07] MEDS: COLACE CAP 100 MG PO SCH ×2 (09:44→22:50)
[2022-04-07] MEDS: PLAVIX PO SCH (09:44)
[2022-04-07] MEDS: SYNTHROID 25 mcg TAB PO SCH (09:44)
[2022-04-07] MEDS: ASPIRIN EC 81 MG PO SCH (09:45)
[2022-04-07] MEDS: XANAX PO SCH (09:45)
[2022-04-07] MEDS: APRESOLINE TAB 25 MG PO SCH ×2 (09:45→21:34)
[2022-04-07] MEDS: NORVASC TAB 5 MG PO SCH ×2 (09:45→21:35)
[2022-04-07] MEDS: HEMOCYTE-PLUS PO SCH (09:45)
[2022-04-07] MEDS: DIFLUCAN PO SCH (09:45)
[2022-04-07] MEDS: KEPPRA TAB 500 MG PO SCH ×2 (09:45→22:51)
[2022-04-07] MEDS: EFFEXOR XR 75 MG CAP 24-HR PO SCH (09:46)
[2022-04-07] MEDS: COREG TAB 12.5 MG PO SCH ×2 (09:46→22:50)
[2022-04-07] MEDS: INVanz INJ 1 GRAM VIAL 1 G in NS 100 ML IV 100 ML IV SCH (09:46)
[2022-04-07] MEDS: FOLIC ACID TAB 1 MG PO SCH (09:46)
[2022-04-07] MEDS: LOVENOX INJ 30 MG SYR SC SCH (09:47)
[2022-04-07] MEDS: ISOSORBIDE DINITRATE 5 MG PO SCH ×2 (09:54→22:50)
[2022-04-07] MEDS: ARTIFICIAL TEARS DROPS OP SCH ×2 (09:58→21:48)
[2022-04-07] MEDS: MIRALAX POWDER (1 DOSE 17 G) PO SCH ×2 (10:02→11:40)
[2022-04-07] MEDS ORDERED: LASIX IVP ONE (10:12)
[2022-04-07] MEDS: MILK OF MAGNESIA PO SCH (10:18)
--- NOTE | 2022-04-07 10:52 | EKG ---
Test Reason : CP Blood Pressure : */* mmHG Vent. Rate : 57 BPM Atrial Rate : 57 BPM P-R Int : 248 ms QRS Dur : 116 ms QT Int : 462 ms P-R-T Axes : 71 115 88 degrees QTc Int : 449 ms Sinus bradycardia with 1st degree AV block Low voltage QRS Incomplete right bundle branch block Anterolateral infarct (cited on or before 21-JAN-2022) Abnormal ECG When compared with ECG of 28-MAR-2022 16:36, VT interval has increased QRS duration has increased Confirmed by David Kc ([id number]) on 04/08/2022 8:36:05 AM Referred By: Confirmed By: David Kc
[2022-04-07] MEDS: NYSTATIN POWDER TOP SCH ×2 (11:45→21:48)
[2022-04-07] MEDS: KLONOPIN TAB 0.5 MG PO SCH ×2 (12:02→21:31)
[2022-04-07] MEDS: ZAROXOLYN PO SCH (12:02)
--- NOTE | 2022-04-07 20:51 | PCM.PROG ---
Progress Note - Progress Note for Day of Date of Exam: 04/06/22 - Subjective Subjective: IS CURRENTLY INPATIENT STATUS FOR TREATMENT OF ACUTE EXACERBATION OF CHF, PNEUMONIA, ACUTE ON CHRONIC RESPIRATORY FAILURE WITH HYPERCAPNIA, HYPERKALEMIA, ACUTE ON CHRONIC KIDNEY FAILURE, ELEVATED TROPONIN LEVELS, UTI, AND ANEMIA. ADDITIONALLY, SHE HAS A HISTORY OF COPD, DM II, HYPERL IPIDEMIA, AND CAD. TODAY, SHE IS ALERT, LYING IN BED ON MORNING ROUNDS. SHE IS ABLE TO FOLLOW COMMANDS. SHE COMPLAINS OF PERSISTENT WEAKNESS AND SHORTNESS OF BREATH THIS MORNING. SHE DOES REPORT SOME IMPROVEMENT IN COUGH. SHE IS CURRENTLY UTILIZING HEATED HIGH FLOW OXYGEN. SHE HAS NOT ABLE TO TOLERATE WEARING THE BIPAP. THE NURSING STAFF REPORTS THAT HER OXYGEN SATURATIONS HAVE REMAINED IN THE 90s WHILE ON HEATED HIGH FLOW OXYGEN. SATURATIONS DO DROP TO THE 80s WHEN OXYGEN IS REMOVED. THEY REPORT THAT SHE HAS HAD DECREASED ORAL INTAKE. SPEECH THERAPY EVALUATED HER AND RECOMMENDED ICE CHIPS ONLY DUE TO COUGHING ON THIN LIQUIDS. ON EXAMINATION TODAY, HEART IS REGULAR IN RATE AND RHYTHM. BILATERAL LUNGS ARE NOTED WITH RHONCHI THROUGHOUT. ABDOMEN IS ROUND, SOFT, AND NON-TENDER WITH NORMAL BOWEL SOUNDS NOTED IN ALL QUADRANTS. CARY CATHETER IS NOTED TO BEDSIDE DRAINAGE. WEAKNESS NOTED TO UPPER AND LOWER EXTREMITIES. TRACE LOWER EXTREMITY EDEMA NOTED. HER VITALS THIS MORNING ARE: 97.9-56-18-95%-144/63. HEATED HIGH FLOW OXYGEN WITH FI02 AT 40% THIS MORNING. LABS WERE OBTAINED. WBC 5.0, RBC 2.82, HGB 9.1, HCT 28.4, PLT COUNT 228, SODIUM 142, POTASSIUM 5.5, CHLORIDE 109, CARBON DIOXIDE 29.1, BUN 61, CREATININE 3.50, GFR 14, GLUCOSE 82, CALCIUM 9.6, AST 11, ALT 6, ALK PHOS 87, BNP 690, TOTAL PROTEIN 5.9, ALBUMIN 2.0. HER URINE CULTURE IS POSITIVE FOR GROWTH OF E.COLI AND E.COLI #2. SPUTUM CULTURE IS POSITIVE FOR GROWTH OF KLEBSIELLA PNEUMONIAE. A CHEST XRAY WAS OBTAINED AND REVEALED: Status post median sternotomy. The cardiac silhouette is stably enlarged. Mediastinal contours appear stable. No significant change in bilateral airspace and interstitial opacities. Suspect small pleural effusions. No pneumothorax. Soft tissue attenuation limits evaluation. SHE IS CURRENTLY RECEIVING WITH 1 AMP BICARB AT 75 ML/HR, INVANZ 1G IV DAILY, DIFLUCAN 100MG PO DAILY, DUONEBS TID, OTBS ACHS, HUMULIN R SLIDING SCALE, MORPHINE 1MG IV Q4H PRN PAIN, AND HER HOME MEDICATIONS WERE RESUMED WITH THE EXCEPTION OF HER LASIX DUE TO RENAL FAILURE. WE CONTINUED TO ENCOURAGE THE USE OF THE BIPAP DUE TO RESPIRATORY FAILURE WITH HYPERCAPNIA. WE WILL SEE IF RESPIRATORY CAN FIND A DIFFERENT STYLE MASK THAT MIGHT WORK FOR HER. OTHERWISE, WE WILL CONTINUE WITH CURRENT PLAN OF CARE. WE WILL FOLLOW-UP WITH AM LABS AND CHEST XRAY AND CONTINUE TO MONITOR. TIME SPENT ON CLINICAL ASSESSMENT, REVIWING LABS AND IMAGING, DECISION MAKING, AND DOCUMENTATION GREATER THAN 45 MINUTES. - Past Medical Family Social History Past Med/Fam/Surg Hx: No changes since H&P Allergies: Allergies Sulfa (Sulfonamide Antibiotics) [SULFA] Allergy (Verified 10/31/21 18:43) ciprofloxacin [From Cipro] Adverse Reaction (Verified 10/31/21 18:43) - Review of Systems ROS: No change since H&P - Vital Signs and I&O's Vital Signs: Temperature 98 F Pulse Rate [Left Brachial] 50 Pulse Rate 55 Respiratory Rate 18 Blood Pressure [Right Arm] 114/57 Blood Pressure [Left Arm] 136/60 Blood Pressure 135/61 O2 Sat by Pulse Oximetry 99 Intake and Output: Intake & Output 04/05/22 04/06/22 04/07/22 04/08/22 11:59 11:59 11:59 11:59 Intake Total 112 / 112 1373 / 1373 1636 / 1636 576 / 576 Output Total 315 / 315 325 / 325 600 / 600 150 / 150 Balance -203 / -203 1048 / 1048 1036 / 1036 426 / 426 - Physical Exam Oriented: Normal Eyes: Normal Ear: Normal Nose: Normal Throat: Normal Respiratory: Generalized, Diminished, Rhonchi Cardiovascular: Normal : Normal Auscultation: Bowel Sounds: Normal Tenderness: Normal Skin: Normal Musculoskeletal: Right, Left, Knee, Back:Lumbar, Tender Psychiatric: Normal Mood Description: Calm Affect: Normal Speech Pattern: Clear, Appropriate - Laboratory and Diagnostics Result Diagrams: 04/07/22 04:45 04/07/22 04:45 Labs: 03/29/22 11:00 Sputum - Expectorated Sputum Sputum Culture - Final Klebsiella Pneumoniae 03/29/22 11:00 Sputum - Expectorated Sputum - Final 03/27/22 20:00 Urine,Catheterized Urine Culture - Final Escherichia Coli Escherichia Coli#2 Laboratory WBC 4.8 X10^3/uL (3.6-10.0) 04/07/22 04:45 RBC 2.81 X10^6/uL (3.5-5.4) L 04/07/22 04:45 Hgb 9.1 g/dL (12.0-16.0) L 04/07/22 04:45 Hct 28.2 % (36.0-47.0) L 04/07/22 04:45 MCV 100.3 fL (80.0-100.0) H 04/07/22 04:45 MCH 32.3 pg (27.0-34.0) 04/07/22 04:45 MCHC 32.2 g/dL (33.0-35.0) L 04/07/22 04:45 RDW 19.1 % (11.6-16.5) H 04/07/22 04:45 Plt Count 206 X10^3/uL (150.0-450.0) 04/07/22 04:45 MPV 7.6 fL (7.4-11.0) 04/07/22 04:45 Neut % (Auto) 62.7 % (42.0-75.0) 04/07/22 04:45 Lymph % (Auto) 23.7 % (21.0-51.0) 04/07/22 04:45 [place] % (Auto) 8.5 % (0.0-13.0) 04/07/22 04:45 Eos % (Auto) 4.2 % (0.9-2.9) H 04/07/22 04:45 Baso % (Auto) 0.9 % (0.2-1.0) 04/07/22 04:45 Neut # (Auto) 3.0 x10^3/uL (2.2-4.8) 04/07/22 04:45 Lymph # (Auto) 1.1 X10^3/uL (1.3-2.9) L 04/07/22 04:45 [place] # (Auto) 0.4 x10^3/uL (0.3-0.8) 04/07/22 04:45 Eos # (Auto) 0.2 x10^3/uL (0.0-0.2) 04/07/22 04:45 Baso # (Auto) 0.0 X10^3/uL (0.0-0.1) 04/07/22 04:45 Absolute Nucleated RBC 0.0 /100WBC 04/07/22 04:45 Sample Site Rr 04/06/22 11:22 ABG pH 7.310 (7.35-7.45) L 04/06/22 11:22 ABG pCO2 61.0 mmHg (35.0-45.0) H* 04/06/22 11:22 ABG pO2 60.0 mmHg (80.0-100.0) L 04/06/22 11:22 ABG HCO3 30.7 mmol/L (22-26) H* 04/06/22 11:22 ABG O2 Saturation 88.0 % (90-100) L 04/06/22 11:22 ABG Base Excess 3.0 mmol/L (-2.0-2.0) H 04/06/22 11:22 Kevin Test Positive 04/06/22 11:22 A-a Gradient 120.0 mmHg 04/06/22 11:22 FiO2 36.0 04/06/22 11:22 Blood Gas Comments Hfnc 40l 04/06/22 11:22 Sodium 142 mmol/L (136-145) 04/07/22 04:45 Corrected Sodium 142 mmol/L (136-145) 04/07/22 04:45 Potassium 5.1 mmol/L (3.5-5.1) 04/07/22 04:45 Chloride 110 mmol/L (98-107) H 04/07/22 04:45 Carbon Dioxide 28.0 mmol/L (21-32) 04/07/22 04:45 BUN 59 mg/dL (7-18) H 04/07/22 04:45 Creatinine 3.32 mg/dL (0.55-1.02) H 04/07/22 04:45 Est GFR (MDRD) Af Amer 18 (>60) L 04/07/22 04:45 Est GFR (MDRD) Non-Af 15 (>60) L 04/07/22 04:45 Glucose 111 mg/dL (65-99) H 04/07/22 04:45 POC Glucose (mg/dL) 101 mg/dL (65-99) H 04/07/22 16:35 Calcium 9.3 mg/dL (8.5-10.1) 04/07/22 04:45 Corrected Calcium 10.9 mg/dL (8.5-10.1) H 04/07/22 04:45 Total Bilirubin 0.30 mg/dL (0.2-1.0) 04/07/22 04:45 AST 9 Units/L (15-37) L 04/07/22 04:45 ALT < 6 Units/L (12-78) L 04/07/22 04:45 Alkaline Phosphatase 88 Units/L (46-116) 04/07/22 04:45 Creatine Kinase 12 Units/L (26-192) L 04/07/22 11:17 Troponin I High Sens 45.2 ng/L (4.0-60.0) 04/07/22 11:17 B-Natriuretic Peptide 994 pg/mL (0-79) H* 04/07/22 04:45 Total Protein 5.9 g/dL (6.4-8.2) L 04/07/22 04:45 Albumin 2.0 g/dL (3.4-5.0) L 04/07/22 04:45 Globulin 3.9 g/dL (2.5-4.5) 04/07/22 04:45 Albumin/Globulin Ratio 0.5 Ratio (1.1-2.1) L 04/07/22 04:45 Specimen Type Catherized urine 03/27/22 20:00 Urine Color Yellow (YELLOW) 03/27/22 20:00 Urine Appearance Hazy (CLEAR) 03/27/22 20:00 Urine pH 5.0 (5.0 - 8.0) 03/27/22 20:00 Ur Specific [place] 1.020 (1.000-1.030) 03/27/22 20:00 Urine Protein 3+ (NEGATIVE) 03/27/22 20:00 Urine Glucose (UA) Negative (NEGATIVE) 03/27/22 20:00 Urine Ketones Negative (NEGATIVE) 03/27/22 20:00 Urine Blood 4+ (NEGATIVE) 03/27/22 20:00 Urine Nitrite Negative (NEGATIVE) 03/27/22 20:00 Urine Bilirubin Negative (NEGATIVE) 03/27/22 20:00 Urine Urobilinogen Normal (NORMAL) 03/27/22 20:00 Ur Leukocyte Esterase 3+ (NEGATIVE) 03/27/22 20:00 Urine RBC 10-20 /HPF (0-3) A 03/27/22 20:00 Urine WBC 20-30 /HPF (0-5) A 03/27/22 20:00 Ur Squamous Epith Cells Few /HPF (NEGATIVE) 03/27/22 20:00 Ur Renal Epithelial Cell Few /HPF (NEGATIVE) 03/27/22 20:00 Urine Bacteria 3+ /HPF (NEGATIVE) 03/27/22 20:00 Urine Mucus Few /HPF (NEGATIVE) 03/27/22 20:00 Urine Yeast Numerous /HPF (NEGATIVE) 03/27/22 20:00 Ur Culture Indicated? Yes/culture set up 03/27/22 20:00 Resp Viral Panel (PCR) See scanned report 03/28/22 14:12 - Plan (1) Acute exacerbation of CHF (congestive heart failure) Status: Acute Qualifiers: Heart failure type: unspecified Plan: SUPPLEMENTAL OXYGEN, BIPAP, D5NS WITH 1 AMP BICARB AT 75 ML/HR, INVANZ 1G IV DAILY, DIFLUCAN 100MG DAILY, DUONEBS TID, MORPHINE 1MG IV Q4H, OTBS ACHS, HUMULIN R SLIDING SCALE, AND WE WILL RESUME HER HOME MEDICATIONS WITH THE EXCEPTION OF HER LASIX DUE TO RENAL FAILURE. FOLLOW-UP WITH AM LABS AND CHEST XRAY (2) Respiratory failure with hypoxia and hypercapnia Status: Acute Qualifiers: Chronicity: acute on chronic Qualified Code(s): J96.21 - Acute and chronic respiratory failure with hypoxia; J96.22 - Acute and chronic respiratory failure with hypercapnia; J96.22 - Acute and chronic respiratory failure with hypercapnia (3) Hyperkalemia Status: Acute (4) Acute on chronic kidney failure Status: Acute Qualifiers: Acute renal failure type: unspecified Chronic kidney disease stage: unspecified stage Qualified Code(s): N17.9 - Acute kidney failure, unspecified; N18.9 - Chronic kidney disease, unspecified (5) Elevated troponin Status: Acute (6) Urinary tract infection Status: Acute Qualifiers: Urinary tract infection type: acute cystitis Hematuria presence: with hematuria Qualified Code(s): N30.01 - Acute cystitis with hematuria (7) Anemia Status: Chronic Qualifiers: Anemia type: iron deficiency Iron deficiency anemia type: chronic blood loss Qualified Code(s): D50.0 - Iron deficiency anemia secondary to blood loss (chronic) (8) COPD (chronic obstructive pulmonary disease) Status: Chronic Qualifiers: COPD type: COPD with acute exacerbation Qualified Code(s): J44.1 - Chronic obstructive pulmonary disease with (acute) exacerbation (9) Diabetes mellitus, type II Status: Chronic Qualifiers: Diabetes mellitus intermediate insulin use: with intermediate use Diabetes mellitus complication status: with kidney complications Diabetes mellitus complication detail: with chronic kidney disease Chronic kidney disease stage: stage 4 (severe) Qualified Code(s): E11.22 - Type 2 diabetes mellitus with diabetic chronic kidney disease; N18.4 - Chronic kidney disease, stage 4 (severe); 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 transplanted heart: [place] heart Associated angina: unspecified whether angina present Qualified Code(s): I25.10 - Atherosclerotic heart disease of [place] coronary artery without angina pectoris
[2022-04-07] MEDS: SNACK - Diabetic Appropriate PO SCH (21:38)
[2022-04-07] MEDS: LEVEMIR SC SCH (21:45)
[2022-04-07] MEDS: SEROquel TAB 25 mg PO SCH (22:51)
[2022-04-07] MEDS: LIPITOR TAB 40 MG PO SCH (22:52)
[2022-04-08] MEDS: XOPENEX 1.25 MG/3 ML NEBULE NEB SCH ×3 (05:45→20:00)
[2022-04-08 06:34] LABS: BASOPHILS % (AUTO) 0.9 % (0.2-1.0); EOSINOPHILS # (AUTO) 0.2 x10^3/uL (0.0-0.2); EOSINOPHILS % (AUTO) 4.1 % (0.9-2.9); HEMATOCRIT 28.9 % (36.0-47.0); HEMOGLOBIN 9.1 g/dL (12.0-16.0); LYMPHOCYTES % (AUTO) 21.8 % (21.0-51.0); MEAN CORPUSCULAR HEMOGLOBIN 31.9 pg (27.0-34.0); MEAN CORPUSCULAR HGB CONC 31.4 g/dL (33.0-35.0); MEAN CORPUSCULAR VOLUME 101.6 fL (80.0-100.0); MEAN PLATELET VOLUME 7.7 fL (7.4-11.0); MONOCYTES # (AUTO) 0.4 x10^3/uL (0.3-0.8); NEUTROPHILS # (AUTO) 2.9 x10^3/uL (2.2-4.8); NEUTROPHILS % (AUTO) 64.2 % (42.0-75.0); RED BLOOD COUNT 2.84 X10^6/uL (3.5-5.4); RED CELL DISTRIBUTION WIDTH 18.9 % (11.6-16.5); WHITE BLOOD COUNT 4.5 X10^3/uL (3.6-10.0)
[2022-04-08 06:50] LABS: ALANINE AMINOTRANSFERASE 6 Units/L (12-78); ALKALINE PHOSPHATASE 88 Units/L (46-116); ASPARTATE AMINO TRANSFERASE 8 Units/L (15-37); BLOOD UREA NITROGEN 61 mg/dL (7-18); CALCIUM 9.6 mg/dL (8.5-10.1); CARBON DIOXIDE 29.8 mmol/L (21-32); CHLORIDE 110 mmol/L (98-107); COR CA(FOR HYPOALB) 11.2 mg/dL (8.5-10.1); CREATININE 3.37 mg/dL (0.55-1.02); SODIUM 143 mmol/L (136-145); TOTAL PROTEIN 6.1 g/dL (6.4-8.2); eGFR NON BLACK RACES 15 (>60)
[2022-04-08] MEDS: D5 NS IV SCH ×4 (07:03→16:18)
[2022-04-08] MEDS: SODIUM BICARBONATE IV SCH ×4 (07:03→16:18)
--- NOTE | 2022-04-08 09:37 | RAD ---
HISTORYSOBSTUDYPortable AP chestCOMPARISONMarch 2022FINDINGSSimilar appearance of marked cardiac enlargement vascular congestion, diffuse bilateral infiltrates/edema and left lower lobe airspace consolidation with suspect effusion.IMPRESSIONNo change since 1 day prior.Electronically signed by: JERRY REY (Apr 08, 2022 09:35:43)
[2022-04-08] MEDS: LOVENOX INJ 30 MG SYR SC SCH (10:11)
[2022-04-08] MEDS: INVanz INJ 1 GRAM VIAL 1 G in NS 100 ML IV 100 ML IV SCH (10:11)
[2022-04-08] MEDS: SYNTHROID 25 mcg TAB PO SCH (10:12)
[2022-04-08] MEDS: ZAROXOLYN PO SCH (10:12)
[2022-04-08] MEDS: KEPPRA TAB 500 MG PO SCH ×2 (10:12→23:05)
[2022-04-08] MEDS: NORVASC TAB 5 MG PO SCH ×2 (10:12→23:05)
[2022-04-08] MEDS: PLAVIX PO SCH (10:12)
[2022-04-08] MEDS: MILK OF MAGNESIA PO SCH (10:13)
[2022-04-08] MEDS: KLONOPIN TAB 0.5 MG PO SCH ×2 (10:13→23:03)
[2022-04-08] MEDS: ASPIRIN EC 81 MG PO SCH (10:13)
[2022-04-08] MEDS: MIRALAX POWDER (1 DOSE 17 G) PO SCH (10:13)
[2022-04-08] MEDS: APRESOLINE TAB 25 MG PO SCH ×2 (10:13→22:58)
[2022-04-08] MEDS: COREG TAB 12.5 MG PO SCH ×2 (10:14→23:05)
[2022-04-08] MEDS: EFFEXOR XR 75 MG CAP 24-HR PO SCH (10:14)
[2022-04-08] MEDS: HEMOCYTE-PLUS PO SCH (10:14)
[2022-04-08] MEDS: ISOSORBIDE DINITRATE 5 MG PO SCH ×2 (10:14→23:13)
[2022-04-08] MEDS: COLACE CAP 100 MG PO SCH ×2 (10:14→23:02)
[2022-04-08] MEDS: DIFLUCAN PO SCH (10:14)
[2022-04-08] MEDS: FOLIC ACID TAB 1 MG PO SCH (10:15)
[2022-04-08] MEDS: NYSTATIN POWDER TOP SCH ×2 (10:15→23:05)
[2022-04-08] MEDS: ARTIFICIAL TEARS DROPS OP SCH ×2 (10:15→23:03)
[2022-04-08] MEDS: LASIX IVP SCH (16:21)
[2022-04-08] MEDS: SEROquel TAB 25 mg PO SCH (23:04)
[2022-04-08] MEDS: LIPITOR TAB 40 MG PO SCH (23:04)
[2022-04-08] MEDS: LEVEMIR SC SCH (23:14)
[2022-04-08] MEDS: SNACK - Diabetic Appropriate PO SCH (23:18)
[2022-04-09] MEDS: XOPENEX 1.25 MG/3 ML NEBULE NEB SCH ×3 (05:30→20:40)
[2022-04-09] MEDS: D5 NS IV SCH ×4 (05:35→21:02)
[2022-04-09] MEDS: SODIUM BICARBONATE IV SCH ×4 (05:35→21:02)
[2022-04-09 06:18] LABS: BASOPHILS % (AUTO) 0.9 % (0.2-1.0); EOSINOPHILS # (AUTO) 0.1 x10^3/uL (0.0-0.2); EOSINOPHILS % (AUTO) 3.8 % (0.9-2.9); HEMATOCRIT 26.3 % (36.0-47.0); HEMOGLOBIN 8.3 g/dL (12.0-16.0); LYMPHOCYTES % (AUTO) 27.5 % (21.0-51.0); MEAN CORPUSCULAR HEMOGLOBIN 31.7 pg (27.0-34.0); MEAN CORPUSCULAR HGB CONC 31.3 g/dL (33.0-35.0); MEAN CORPUSCULAR VOLUME 101.1 fL (80.0-100.0); MEAN PLATELET VOLUME 7.6 fL (7.4-11.0); MONOCYTES # (AUTO) 0.3 x10^3/uL (0.3-0.8); MONOCYTES % (AUTO) 7.7 % (0.0-13.0); NEUTROPHILS # (AUTO) 2.2 x10^3/uL (2.2-4.8); NEUTROPHILS % (AUTO) 60.1 % (42.0-75.0); WHITE BLOOD COUNT 3.7 X10^3/uL (3.6-10.0)
[2022-04-09 06:40] LABS: ALANINE AMINOTRANSFERASE < 6 Units/L (12-78); ALBUMIN 1.8 g/dL (3.4-5.0); ALKALINE PHOSPHATASE 80 Units/L (46-116); ASPARTATE AMINO TRANSFERASE 7 Units/L (15-37); BLOOD UREA NITROGEN 60 mg/dL (7-18); CALCIUM 9.5 mg/dL (8.5-10.1); CARBON DIOXIDE 30.5 mmol/L (21-32); CHLORIDE 111 mmol/L (98-107); COR CA(FOR HYPOALB) 11.3 mg/dL (8.5-10.1); CREATININE 3.31 mg/dL (0.55-1.02); SODIUM 144 mmol/L (136-145); TOTAL PROTEIN 5.5 g/dL (6.4-8.2); eGFR NON BLACK RACES 15 (>60)
[2022-04-09] MEDS: LOVENOX INJ 30 MG SYR SC SCH (09:26)
[2022-04-09] MEDS: INVanz INJ 1 GRAM VIAL 1 G in NS 100 ML IV 100 ML IV SCH (09:26)
[2022-04-09] MEDS: LASIX IVP SCH ×3 (09:27→20:47)
[2022-04-09] MEDS: COLACE CAP 100 MG PO SCH ×2 (09:31→20:46)
[2022-04-09] MEDS: DIFLUCAN PO SCH (09:31)
[2022-04-09] MEDS: EFFEXOR XR 75 MG CAP 24-HR PO SCH (09:31)
[2022-04-09] MEDS: FOLIC ACID TAB 1 MG PO SCH (09:31)
[2022-04-09] MEDS: ZAROXOLYN PO SCH (09:32)
[2022-04-09] MEDS: NORVASC TAB 5 MG PO SCH ×2 (09:32→20:45)
[2022-04-09] MEDS: APRESOLINE TAB 25 MG PO SCH ×2 (09:34→20:46)
[2022-04-09] MEDS: SYNTHROID 25 mcg TAB PO SCH (09:34)
[2022-04-09] MEDS: KEPPRA TAB 500 MG PO SCH ×2 (09:34→20:46)
[2022-04-09] MEDS: PLAVIX PO SCH (09:35)
[2022-04-09] MEDS: KLONOPIN TAB 0.5 MG PO SCH ×2 (09:35→20:46)
[2022-04-09] MEDS: ASPIRIN EC 81 MG PO SCH (09:35)
[2022-04-09] MEDS: COREG TAB 12.5 MG PO SCH ×2 (09:35→20:45)
[2022-04-09] MEDS: HEMOCYTE-PLUS PO SCH (09:35)
[2022-04-09] MEDS: MILK OF MAGNESIA PO SCH ×2 (09:38→09:41)
[2022-04-09] MEDS: ARTIFICIAL TEARS DROPS OP SCH ×2 (09:39→20:53)
[2022-04-09] MEDS: NYSTATIN POWDER TOP SCH ×2 (09:42→20:47)
[2022-04-09] MEDS: ISOSORBIDE DINITRATE 5 MG PO SCH ×2 (09:43→21:02)
[2022-04-09] MEDS: MIRALAX POWDER (1 DOSE 17 G) PO SCH (09:43)
--- NOTE | 2022-04-09 11:16 | RAD ---
HISTORYHyperkalemia CHFSTUDYPortable AP chestCOMPARISONMarch 2022FINDINGSSimilar cardiomegaly, sternal fixation hardware, pulmonary vascular dilatation with bilateral infiltrates/edema and left pleural effusion.IMPRESSIONNo change since 1 day prior.Electronically signed by: JERRY REY (Apr 09, 2022 11:15:50)
[2022-04-09] MEDS: LIPITOR TAB 40 MG PO SCH (20:45)
[2022-04-09] MEDS: SEROquel TAB 25 mg PO SCH (20:45)
[2022-04-09] MEDS: SNACK - Diabetic Appropriate PO SCH (20:47)
[2022-04-09] MEDS: LEVEMIR SC SCH (21:00)
[2022-04-10 06:21] LABS: BASOPHILS % (AUTO) 0.7 % (0.2-1.0); EOSINOPHILS # (AUTO) 0.1 x10^3/uL (0.0-0.2); EOSINOPHILS % (AUTO) 2.6 % (0.9-2.9); HEMATOCRIT 28.3 % (36.0-47.0); LYMPHOCYTES # (AUTO) 0.9 X10^3/uL (1.3-2.9); LYMPHOCYTES % (AUTO) 21.9 % (21.0-51.0); MEAN CORPUSCULAR HEMOGLOBIN 32.3 pg (27.0-34.0); MEAN CORPUSCULAR HGB CONC 31.7 g/dL (33.0-35.0); MEAN CORPUSCULAR VOLUME 101.9 fL (80.0-100.0); MEAN PLATELET VOLUME 7.8 fL (7.4-11.0); MONOCYTES # (AUTO) 0.3 x10^3/uL (0.3-0.8); MONOCYTES % (AUTO) 7.2 % (0.0-13.0); NEUTROPHILS # (AUTO) 2.9 x10^3/uL (2.2-4.8); NEUTROPHILS % (AUTO) 67.6 % (42.0-75.0); RED BLOOD COUNT 2.78 X10^6/uL (3.5-5.4); RED CELL DISTRIBUTION WIDTH 19.1 % (11.6-16.5); WHITE BLOOD COUNT 4.2 X10^3/uL (3.6-10.0)
[2022-04-10 08:20] VITALS: BP 111/53
[2022-04-10 08:32] LABS: ALANINE AMINOTRANSFERASE < 6 Units/L (12-78); ALBUMIN 1.9 g/dL (3.4-5.0); ALKALINE PHOSPHATASE 84 Units/L (46-116); ASPARTATE AMINO TRANSFERASE 10 Units/L (15-37); BLOOD UREA NITROGEN 60 mg/dL (7-18); CALCIUM 9.7 mg/dL (8.5-10.1); CARBON DIOXIDE 30.8 mmol/L (21-32); CHLORIDE 111 mmol/L (98-107); COR CA(FOR HYPOALB) 11.4 mg/dL (8.5-10.1); CREATININE 3.46 mg/dL (0.55-1.02); SODIUM 144 mmol/L (136-145); TOTAL PROTEIN 5.8 g/dL (6.4-8.2); eGFR NON BLACK RACES 14 (>60)
[2022-04-10] MEDS: LOVENOX INJ 30 MG SYR SC SCH (09:34)
[2022-04-10] MEDS: INVanz INJ 1 GRAM VIAL 1 G in NS 100 ML IV 100 ML IV SCH (09:34)
[2022-04-10] MEDS: MILK OF MAGNESIA PO SCH (09:35)
[2022-04-10] MEDS: MIRALAX POWDER (1 DOSE 17 G) PO SCH (09:35)
[2022-04-10] MEDS: COREG TAB 12.5 MG PO SCH (09:38)
[2022-04-10] MEDS: KLONOPIN TAB 0.5 MG PO SCH (09:38)
[2022-04-10] MEDS: FOLIC ACID TAB 1 MG PO SCH (09:38)
[2022-04-10] MEDS: ZAROXOLYN PO SCH (09:38)
[2022-04-10] MEDS: EFFEXOR XR 75 MG CAP 24-HR PO SCH (09:38)
[2022-04-10] MEDS: KEPPRA TAB 500 MG PO SCH (09:38)
[2022-04-10] MEDS: HEMOCYTE-PLUS PO SCH (09:39)
[2022-04-10] MEDS: DIFLUCAN PO SCH (09:39)
[2022-04-10] MEDS: PLAVIX PO SCH (09:39)
[2022-04-10] MEDS: SYNTHROID 25 mcg TAB PO SCH (09:39)
[2022-04-10] MEDS: ASPIRIN EC 81 MG PO SCH (09:39)
[2022-04-10] MEDS: APRESOLINE TAB 25 MG PO SCH (09:39)
[2022-04-10] MEDS: COLACE CAP 100 MG PO SCH (09:39)
[2022-04-10] MEDS: NYSTATIN POWDER TOP SCH (09:40)
[2022-04-10] MEDS: ARTIFICIAL TEARS DROPS OP SCH (09:40)
[2022-04-10] MEDS: NORVASC TAB 5 MG PO SCH (09:40)
[2022-04-10 10:27] LABS: ABG BASE EXCESS 3.4 mmol/L (-2.0-2.0)
[2022-04-10 10:29] LABS: ABG ALLEN TEST POS
--- NOTE | 2022-04-10 10:46 | RAD ---
HISTORYSOB chest painSTUDYAP chestCOMPARISONMarch 2022FINDINGSSimilar cardiomegaly and bilateral infiltrates/pulmonary edema with probable pleural effusions. No new abnormality identified.IMPRESSIONNo change since 1 day prior.Electronically signed by: JERRY REY (Apr 10, 2022 10:46:00)
--- NOTE | 2022-04-10 11:06 | PCM.PROG ---
Progress Note - Progress Note for Day of Date of Exam: 04/07/22 - Subjective Subjective: IS CURRENTLY INPATIENT STATUS FOR TREATMENT OF ACUTE EXACERBATION OF CHF, PNEUMONIA, ACUTE ON CHRONIC RESPIRATORY FAILURE WITH HYPERCAPNIA, HYPERKALEMIA, ACUTE ON CHRONIC KIDNEY FAILURE, ELEVATED TROPONIN LEVELS, UTI, AND ANEMIA. ADDITIONALLY, SHE HAS A HISTORY OF COPD, DM II, HYPERL IPIDEMIA, AND CAD. TODAY, SHE IS ALERT, LYING IN BED ON MORNING ROUNDS. SHE IS ABLE TO FOLLOW COMMANDS. SHE COMPLAINS OF PERSISTENT WEAKNESS AND SHORTNESS OF BREATH THIS MORNING. SHE DOES REPORT SOME IMPROVEMENT IN COUGH. SHE IS CURRENTLY UTILIZING OXYGEN VIA NASAL CANNULA AT 4 LITERS/MINUTE. SHE HAS NOT ABLE TO TOLERATE WEARING THE BIPAP. THE NURSING STAFF REPORTS THAT HER OXYGEN SATURATIONS HAVE REMAINED IN THE 90s WHILE ON OXYGEN. SATURATIONS DO DROP TO THE 80s WHEN OXYGEN IS REMOVED. THEY REPORT THAT SHE HAS HAD DECREASED ORAL INTAKE. SPEECH THERAPY EVALUATED HER AND RECOMMENDED ICE CHIPS ONLY DUE TO COUGHING ON THIN LIQUIDS. ON EXAMINATION TODAY, HEART IS REGULAR IN RATE AND RHYTHM. ANTONIO ATERAL LUNGS ARE NOTED WITH RHONCHI THROUGHOUT. ABDOMEN IS ROUND, SOFT, AND NON- TENDER WITH NORMAL BOWEL SOUNDS NOTED IN ALL QUADRANTS. CARY CATHETER IS NOTED TO BEDSIDE DRAINAGE. WEAKNESS NOTED TO UPPER AND LOWER EXTREMITIES. TRACE LOWER EXTREMITY EDEMA NOTED. HER VITALS THIS MORNING ARE: 97.8-52-18-98%-119/55. LABS WERE OBTAINED. WBC 4.8, RBC 2.81, HGB 9.1, HCT 28.2, PLT COUNT 206, SODIUM 142, POTASSIUM 5.1, CHLORIDE 110, BUN 59, CREATININE 3.32, GLUCOSE 110, CALCIUM 9.3, AST 9, ALT <6, ALK PHOS 88, BNP 994, TOTAL PROTEIN 5.9, ALBUMIN 2.0. HER URINE CULTURE IS POSITIVE FOR GROWTH OF E.COLI AND E.COLI #2. SPUTUM CULTURE IS POSITIVE FOR GROWTH OF KLEBSIELLA PNEUMONIAE. A CHEST XRAY WAS OBTAINED AND REVEALED: Status post median sternotomy and CABG. The cardiac silhouette is stably enlarged. Mediastinal contours appear stable. Similar appearing bilateral airspace and interstitial opacities with lower lung predominance. Blunted right costophrenic sulcus. Moderate left pleural effusions suspected. No pneumothorax. SHE IS CURRENTLY RECEIVING WITH 1 AMP BICARB AT 75 ML/HR, INVANZ 1G IV DAILY, DIFLUCAN 100MG PO DAILY, DUONEBS TID, OTBS ACHS, HUMULIN R SLIDING SCALE, MORPHINE 1MG IV Q4H PRN PAIN, AND HER HOME MEDICATIONS WERE RESUMED WITH THE EXCEPTION OF HER LASIX DUE TO RENAL FAILURE. WE CONTINUED TO ENCOURAGE THE USE OF THE BIPAP DUE TO RESPIRATORY FAILURE WITH HYPERCAPNIA. WE WILL ADD KLONOPIN 0.5MG PO BID TO ALLOW PATIENT TO REST FOR COMPLIANCE WITH THE BIPAP. OTHERWISE, WE WILL FOLLOW-UP WITH AM LABS AND CHEST XRAY AND CONTINUE TO MONITOR. TIME SPENT ON CLINICAL ASSESSMENT, REVIWING LABS AND IMAGING, DECISION MAKING, AND DOCUMENTATION GREATER THAN 45 MINUTES. - Past Medical Family Social History Past Med/Fam/Surg Hx: No changes since H&P Allergies: Allergies Sulfa (Sulfonamide Antibiotics) [SULFA] Allergy (Verified 10/31/21 18:43) ciprofloxacin [From Cipro] Adverse Reaction (Verified 10/31/21 18:43) - Review of Systems ROS: No change since H&P - Vital Signs and I&O's Vital Signs: Temperature 97.1 F Pulse Rate [Left Brachial] 47 Pulse Rate 47 Respiratory Rate 18 Blood Pressure [Right Arm] 111/53 Blood Pressure [Left Arm] 123/55 Blood Pressure 135/61 O2 Sat by Pulse Oximetry 94 Intake and Output: Intake & Output 04/07/22 04/08/22 04/09/22 04/10/22 11:59 11:59 11:59 11:59 Intake Total 1636 / 1636 1343 / 1343 1881 / 1881 1460 / 1460 Output Total 600 / 600 305 / 305 550 / 550 300 / 300 Balance 1036 / 1036 1038 / 1038 1331 / 1331 1160 / 1160 - Physical Exam Oriented: Normal Eyes: Normal Ear: Normal Nose: Normal Throat: Normal Respiratory: Generalized, Diminished, Rhonchi Cardiovascular: Normal : Normal Auscultation: Bowel Sounds: Normal Palpation: Normal Tenderness: Normal Skin: Normal Musculoskeletal: Right, Left, Knee, Back:Lumbar, Tender Psychiatric: Normal Mood Description: Calm Affect: Normal Speech Pattern: Appropriate - Laboratory and Diagnostics Result Diagrams: 04/10/22 05:20 04/10/22 05:20 Labs: 03/29/22 11:00 Sputum - Expectorated Sputum Sputum Culture - Final Klebsiella Pneumoniae 03/29/22 11:00 Sputum - Expectorated Sputum - Final 03/27/22 20:00 Urine,Catheterized Urine Culture - Final Escherichia Coli Escherichia Coli#2 Laboratory WBC 4.2 X10^3/uL (3.6-10.0) 04/10/22 05:20 RBC 2.78 X10^6/uL (3.5-5.4) L 04/10/22 05:20 Hgb 9.0 g/dL (12.0-16.0) L 04/10/22 05:20 Hct 28.3 % (36.0-47.0) L 04/10/22 05:20 MCV 101.9 fL (80.0-100.0) H 04/10/22 05:20 MCH 32.3 pg (27.0-34.0) 04/10/22 05:20 MCHC 31.7 g/dL (33.0-35.0) L 04/10/22 05:20 RDW 19.1 % (11.6-16.5) H 04/10/22 05:20 Plt Count 185 X10^3/uL (150.0-450.0) 04/10/22 05:20 MPV 7.8 fL (7.4-11.0) 04/10/22 05:20 Neut % (Auto) 67.6 % (42.0-75.0) 04/10/22 05:20 Lymph % (Auto) 21.9 % (21.0-51.0) 04/10/22 05:20 [place] % (Auto) 7.2 % (0.0-13.0) 04/10/22 05:20 Eos % (Auto) 2.6 % (0.9-2.9) 04/10/22 05:20 Baso % (Auto) 0.7 % (0.2-1.0) 04/10/22 05:20 Neut # (Auto) 2.9 x10^3/uL (2.2-4.8) 04/10/22 05:20 Lymph # (Auto) 0.9 X10^3/uL (1.3-2.9) L 04/10/22 05:20 [place] # (Auto) 0.3 x10^3/uL (0.3-0.8) 04/10/22 05:20 Eos # (Auto) 0.1 x10^3/uL (0.0-0.2) 04/10/22 05:20 Baso # (Auto) 0.0 X10^3/uL (0.0-0.1) 04/10/22 05:20 Absolute Nucleated RBC 0.1 /100WBC 04/10/22 05:20 Sample Site Rr 04/10/22 10:17 ABG pH 7.280 (7.35-7.45) L 04/10/22 10:17 ABG pCO2 68.0 mmHg (35.0-45.0) H* 04/10/22 10:17 ABG pO2 68.0 mmHg (80.0-100.0) L 04/10/22 10:17 ABG HCO3 32.0 mmol/L (22-26) H* 04/10/22 10:17 ABG O2 Saturation 91.0 % (90-100) 04/10/22 10:17 ABG Base Excess 3.4 mmol/L (-2.0-2.0) H 04/10/22 10:17 Kevin Test Pos 04/10/22 10:17 A-a Gradient 120.0 mmHg 04/06/22 11:22 FiO2 36.0 04/10/22 10:17 Blood Gas Comments 4lnc. shayy well.sd 04/10/22 10:17 Sodium 144 mmol/L (136-145) 04/10/22 05:20 Corrected Sodium TNP 04/10/22 05:20 Potassium 5.0 mmol/L (3.5-5.1) 04/10/22 05:20 Chloride 111 mmol/L (98-107) H 04/10/22 05:20 Carbon Dioxide 30.8 mmol/L (21-32) 04/10/22 05:20 BUN 60 mg/dL (7-18) H 04/10/22 05:20 Creatinine 3.46 mg/dL (0.55-1.02) H 04/10/22 05:20 Est GFR (MDRD) Af Amer 17 (>60) L 04/10/22 05:20 Est GFR (MDRD) Non-Af 14 (>60) L 04/10/22 05:20 Glucose 80 mg/dL (65-99) 04/10/22 05:20 POC Glucose (mg/dL) 77 mg/dL (65-99) 04/10/22 05:48 Calcium 9.7 mg/dL (8.5-10.1) 04/10/22 05:20 Corrected Calcium 11.4 mg/dL (8.5-10.1) H 04/10/22 05:20 Total Bilirubin 0.30 mg/dL (0.2-1.0) 04/10/22 05:20 AST 10 Units/L (15-37) L 04/10/22 05:20 ALT < 6 Units/L (12-78) L 04/10/22 05:20 Alkaline Phosphatase 84 Units/L (46-116) 04/10/22 05:20 Creatine Kinase 12 Units/L (26-192) L 04/07/22 11:17 Troponin I High Sens 45.2 ng/L (4.0-60.0) 04/07/22 11:17 B-Natriuretic Peptide 894 pg/mL (0-79) H* 04/10/22 05:20 Total Protein 5.8 g/dL (6.4-8.2) L 04/10/22 05:20 Albumin 1.9 g/dL (3.4-5.0) L 04/10/22 05:20 Globulin 3.9 g/dL (2.5-4.5) 04/10/22 05:20 Albumin/Globulin Ratio 0.5 Ratio (1.1-2.1) L 04/10/22 05:20 Specimen Type Catherized urine 03/27/22 20:00 Urine Color Yellow (YELLOW) 03/27/22 20:00 Urine Appearance Hazy (CLEAR) 03/27/22 20:00 Urine pH 5.0 (5.0 - 8.0) 03/27/22 20:00 Ur Specific [place] 1.020 (1.000-1.030) 03/27/22 20:00 Urine Protein 3+ (NEGATIVE) 03/27/22 20:00 Urine Glucose (UA) Negative (NEGATIVE) 03/27/22 20:00 Urine Ketones Negative (NEGATIVE) 03/27/22 20:00 Urine Blood 4+ (NEGATIVE) 03/27/22 20:00 Urine Nitrite Negative (NEGATIVE) 03/27/22 20:00 Urine Bilirubin Negative (NEGATIVE) 03/27/22 20:00 Urine Urobilinogen Normal (NORMAL) 03/27/22 20:00 Ur Leukocyte Esterase 3+ (NEGATIVE) 03/27/22 20:00 Urine RBC 10-20 /HPF (0-3) A 03/27/22 20:00 Urine WBC 20-30 /HPF (0-5) A 03/27/22 20:00 Ur Squamous Epith Cells Few /HPF (NEGATIVE) 03/27/22 20:00 Ur Renal Epithelial Cell Few /HPF (NEGATIVE) 03/27/22 20:00 Urine Bacteria 3+ /HPF (NEGATIVE) 03/27/22 20:00 Urine Mucus Few /HPF (NEGATIVE) 03/27/22 20:00 Urine Yeast Numerous /HPF (NEGATIVE) 03/27/22 20:00 Ur Culture Indicated? Yes/culture set up 03/27/22 20:00 Resp Viral Panel (PCR) See scanned report 03/28/22 14:12 - Plan (1) Acute exacerbation of CHF (congestive heart failure) Status: Acute Qualifiers: Heart failure type: unspecified Plan: SUPPLEMENTAL OXYGEN, BIPAP, D5NS WITH 1 AMP BICARB AT 75 ML/HR, INVANZ 1G IV DAILY, DIFLUCAN 100MG DAILY, DUONEBS TID, MORPHINE 1MG IV Q4H, OTBS ACHS, HUMULIN R SLIDING SCALE, AND WE WILL RESUME HER HOME MEDICATIONS WITH THE EXCEPTION OF HER LASIX DUE TO RENAL FAILURE. FOLLOW-UP WITH AM LABS AND CHEST XRAY (2) Respiratory failure with hypoxia and hypercapnia Status: Acute Qualifiers: Chronicity: acute on chronic Qualified Code(s): J96.21 - Acute and chronic respiratory failure with hypoxia; J96.22 - Acute and chronic respiratory failure with hypercapnia; J96.22 - Acute and chronic respiratory failure with hypercapnia (3) Hyperkalemia Status: Acute (4) Acute on chronic kidney failure Status: Acute Qualifiers: Acute renal failure type: unspecified Chronic kidney disease stage: unspecified stage Qualified Code(s): N17.9 - Acute kidney failure, unspecified; N18.9 - Chronic kidney disease, unspecified (5) Elevated troponin Status: Acute (6) Urinary tract infection Status: Acute Qualifiers: Urinary tract infection type: acute cystitis Hematuria presence: with hematuria Qualified Code(s): N30.01 - Acute cystitis with hematuria (7) Anemia Status: Chronic Qualifiers: Anemia type: iron deficiency Iron deficiency anemia type: chronic blood loss Qualified Code(s): D50.0 - Iron deficiency anemia secondary to blood loss (chronic) (8) COPD (chronic obstructive pulmonary disease) Status: Chronic Qualifiers: COPD type: COPD with acute exacerbation Qualified Code(s): J44.1 - Chronic obstructive pulmonary disease with (acute) exacerbation (9) Diabetes mellitus, type II Status: Chronic Qualifiers: Diabetes mellitus long term 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 care registered nurse insulin use: with custodial use Diabetes mellitus complication status: with kidney complications Diabetes mellitus complication detail: with chronic kidney disease Chronic kidney disease stage: stage 4 (severe) Qualified Code(s): E11.22 - Type 2 diabetes mellitus with diabetic chronic kidney disease; N18.4 - Chronic kidney disease, stage 4 (severe); Z79.4 - detention (current) use of insulin (10) Hyperlipidemia Status: Chronic Qualifiers: Hyperlipidemia type: mixed hyperlipidemia Qualified Code(s): E78.2 - Mixed hyperlipidemia (11) CAD (coronary artery disease) Status: Chronic Qualifiers: Coronary Disease-Associated Artery/Lesion type: [place] artery [place] vs. transplanted heart: [place] heart Associated angina: unspecified whether angina present Qualified Code(s): I25.10 - Atherosclerotic heart disease of [place] coronary artery without angina pectoris
[2022-04-10] MEDS: ISOSORBIDE DINITRATE 5 MG PO SCH (11:31)
== END 2022-04-10 14:05 | DRG 291 ==
LOC: ER 09:45 → MED/SURG 09:45
PROVIDERS: ADMIT Internal Medicine; ATTEND Internal Medicine
DX: N30.01 Acute cystitis with hematuria; B96.29 Other Escherichia coli [E. coli] as the cause of diseases classified elsewhere; E87.5 Hyperkalemia; E78.2 Mixed hyperlipidemia; I50.9 Heart failure, unspecified; J44.9 Chronic obstructive pulmonary disease, unspecified; J15.0 Pneumonia due to Klebsiella pneumoniae; J96.21 Acute and chronic respiratory failure with hypoxia; N17.8 Other acute kidney failure; D50.0 Iron deficiency anemia secondary to blood loss (chronic); Z86.73 Personal history of transient ischemic attack (TIA), and cerebral infarction without residual deficits; E11.65 Type 2 diabetes mellitus with hyperglycemia; N18.4 Chronic kidney disease, stage 4 (severe); J96.22 Acute and chronic respiratory failure with hypercapnia; B96.1 Klebsiella pneumoniae [K. pneumoniae] as the cause of diseases classified elsewhere; E11.22 Type 2 diabetes mellitus with diabetic chronic kidney disease; J13 Pneumonia due to Streptococcus pneumoniae; Z79.4 Long term (current) use of insulin; R77.8 Other specified abnormalities of plasma proteins; R07.89 Other chest pain; I13.0 Hypertensive heart and chronic kidney disease with heart failure and stage 1 through stage 4 chronic kidney disease, or unspecified chronic kidney disease; E03.8 Other specified hypothyroidism; I25.10 Atherosclerotic heart disease of native coronary artery without angina pectoris